=== PATIENT | female | born 1980 | race Caucasian/White ===

== ENCOUNTER 2020-06-08 11:17 | Emergency (ER) | payer BC, SELFPAY ==
[2020-06-08 11:26] VITALS: BP 227/125; PULSE 89; RESP 20; TEMP 36.4; O2SAT 99
[2020-06-08 11:57] VITALS: BP 200/114; PULSE 89; RESP 22; O2SAT 95
--- NOTE | 2020-06-08 12:16 | ED.GENADULT ---
HPI - General Adult General Chief complaint: Recheck/Abnormal Lab/Rx Stated complaint: htn at the dentist Time Seen by Provider: 06/08/20 12:01 Source: patient Mode of arrival: ambulatory Limitations: no limitations History of Present Illness HPI narrative: Patient is a 39-year-old female who presents to emergency department for evaluation of elevated blood pressure readings seen at dentist office today. Patient notes no complaints and had elevated reading in the past patient is followed by primary care. Patient takes medications for depression and anxiety only and has a history of tobacco abuse. . Review of Systems Review of Systems: All systems reviewed & are unremarkable except as noted in HPI and below PMFSH Past Medical History Medical History (Updated 06/08/20 @ 13:06 by Itz Webb PA-C) Obesity Social History Social History (Updated 06/08/20 @ 12:18 by Itz Webb PA-C) Smoking status: Current every day smoker Exam Narrative: Exam Narrative: GENERAL: Well-appearing, obese, and in no acute distress. HEAD: Normocephalic, atraumatic. EYES: PERRLA and EOMI. ENT: Nares clear, no rhinorrhea or epistaxis. Mucous membranes moist. Oropharynx without tonsillar hypertrophy exudate or other lesions. NECK: Supple. No adenopathy or masses. CHEST: Clear to auscultation. No respiratory distress. No wheezes rales or rhonchi HEART: Regular rate and rhythm. No murmur heard. Normal peripheral pulses. ABDOMEN: Soft, nontender, nondistended EXTREMITIES: Normal range of motion. No edema. SKIN: Warm, dry, no rash. NEURO: No focal deficits. Alert and oriented x3. Cranial nerves II through XII grossly intact PSYCH: Normal mood and affect. Course Course Emergency Course: Patient's blood pressure came down significantly with resting will follow with primary care did not require any interventions Vital Signs Vital signs: Vital Signs Temperature 97.5 F L 06/08/20 11:26 Pulse Rate 89 06/08/20 11:26 Respiratory Rate 20 06/08/20 11:26 Blood Pressure 227/125 H 06/08/20 11:26 Pulse Oximetry 99 06/08/20 11:26 Temperature 97.5 F L 06/08/20 11:26 Pulse Rate 63 06/08/20 12:35 Respiratory Rate 18 06/08/20 12:35 Blood Pressure 193/88 H 06/08/20 12:35 Pulse Oximetry 99 06/08/20 12:35 Medical Decision Making MDM Narrative Medical decision making narrative: Patient's blood pressure currently 167/79 asymptomatic advised to buy a blood pressure cuff created journal and follow with primary care and given reasons to return Vital Signs Vital Signs: Vital Signs Temperature 97.5 F L 06/08/20 11:26 Pulse Rate 89 06/08/20 11:26 Respiratory Rate 20 06/08/20 11:26 Blood Pressure 227/125 H 06/08/20 11:26 Pulse Oximetry 99 06/08/20 11:26 Temperature 97.5 F L 06/08/20 11:26 Pulse Rate 63 06/08/20 12:35 Respiratory Rate 18 06/08/20 12:35 Blood Pressure 193/88 H 06/08/20 12:35 Pulse Oximetry 99 06/08/20 12:35 Lab Data Result diagrams: 06/08/20 12:11 06/08/20 12:11 Labs: Lab Results 06/08/20 06/08/20 Range/Units 12:11 12:11 WBC 10.6 H (4.5-10.0) K/mm3 RBC 5.26 (4.2-5.4) M/mm3 Hgb 15.7 H (12.0-15.0) g/dL Hct 46.4 (37.0-47.0) % MCV 88.2 (80-100) fl MCH 29.8 (26-34) pg MCHC 33.8 (32-36) g/dl RDW 13.6 (11.5-14.5) % Plt Count 240 (150-375) k/mm3 MPV 10.1 (7.4-10.4) fl Immature Gran % (Auto) 0.4 (0-0.5) % Neut % (Auto) 66.4 (45.5-73.1) % Lymph % (Auto) 23.1 (18.3-44.2) % [place] % (Auto) 7.0 (2.6-8.5) % Eos % (Auto) 2.5 (0-4.4) % Baso % (Auto) 0.6 (0.2-1.2) % Lymph # (Auto) 2.45 (0.9-3.2) K/mm3 [place] # (Auto) 0.7 H (0.1-0.6) K/mm3 Eos # (Auto) 0.3 (0-0.3) K/mm3 Baso # (Auto) 0.1 (0.0-0.1) K/mm3 Abs Immat Gran (auto) 0.04 H (0.00-0.031) K/mm3 Absolute Neuts (auto) 7.1 H (1.3-6.7) K/mm3 Absolute Nucleated RBC 0.0 (0.0-0.012) K/mm3 Nucleat
[2020-06-08 12:24] LABS: Basophils Absolute Auto 0.1 K/mm3 (0.0-0.1); Basophils Percent Auto 0.6 % (0.2-1.2); Eosinophils Absolute Auto 0.3 K/mm3 (0-0.3); Eosinophils Percent Auto 2.5 % (0-4.4); Hematocrit 46.4 % (37.0-47.0); Hemoglobin 15.7 g/dL (12.0-15.0); Immature Granulocyte Absolute 0.04 K/mm3 (0.00-0.031); Immature Granulocyte Percent A 0.4 % (0-0.5); Lymphocytes Absolute Auto 2.45 K/mm3 (0.9-3.2); Lymphocytes Percent Auto 23.1 % (18.3-44.2); Mean Corpuscular HGB Conc 33.8 g/dl (32-36); Mean Corpuscular Hemoglobin 29.8 pg (26-34); Mean Corpuscular Volume 88.2 fl (80-100); Mean Platelet Volume 10.1 fl (7.4-10.4); Monocytes Absolute Auto 0.7 K/mm3 (0.1-0.6); Neutrophils Absolute Auto 7.1 K/mm3 (1.3-6.7); Neutrophils Percent Auto 66.4 % (45.5-73.1); Platelet Count Result 240 k/mm3 (150-375); Red Blood Count 5.26 M/mm3 (4.2-5.4); Red Cell Distribution Width 13.6 % (11.5-14.5); White Blood Count 10.6 K/mm3 (4.5-10.0)
[2020-06-08 12:35] VITALS: BP 193/88; PULSE 63; RESP 18; O2SAT 99
[2020-06-08 12:36] LABS: Anion Gap 8 mmol/L (8-16); Blood Urea Nitrogen 10 mg/dL (7-17); Carbon Dioxide 23 mmol/L (22-30); Chloride 105 mmol/L (98-107); Estimated CRCL calculation 135 ml/min; Estimated Glomerular Filt Rate > 60; Glucose 96 mg/dL (65-105); Potassium 4.1 mmol/L (3.4-5.0); Sodium 136 mmol/L (137-145)
[2020-06-08 13:28] VITALS: BP 161/83; PULSE 78; RESP 18; O2SAT 99
[2020-06-08 13:40] VITALS: BP 160/72; PULSE 85; RESP 20; O2SAT 99
== END 2020-06-08 13:42 | disposition home or self-care (01) ==
PROVIDERS: Emergency Medicine Emergency Medical Services; Emergency Provider Emergency Medicine; PCP Physician Assistant
DX: R03.0 Elevated blood-pressure reading, without diagnosis of hypertension (principal); E66.9 Obesity, unspecified; Z68.41 Body mass index [BMI] 40.0-44.9, adult; F17.200 Nicotine dependence, unspecified, uncomplicated
CPT/HCPCS: 36415; 80048; 85025; 99283

== ENCOUNTER 2020-07-11 07:52 | Emergency (ER) | payer BC, SELFPAY ==
[2020-07-11 08:06] VITALS: BP 225/130; PULSE 96; RESP 18; TEMP 36.4; O2SAT 99
--- NOTE | 2020-07-11 08:15 | ECG_ITS ---
Measurements Intervals [place] Rate: 83 P: 50 [place]: 154 QRS: 60 QRSD: 87 T: 64 QT: 354 QTc: 416 Interpretive Statements SINUS RHYTHM BASELINE WANDER- V1 NORMAL ECG Electronically Signed On 07-11-2020 8:28:40 CDT by Luis Carlos Durham D.O.
[2020-07-11 08:20] VITALS: BP 223/136; PULSE 85; RESP 17; O2SAT 100
[2020-07-11 08:34] LABS: Basophils Absolute Auto 0.1 K/mm3 (0.0-0.1); Basophils Percent Auto 0.6 % (0.2-1.2); Eosinophils Absolute Auto 0.2 K/mm3 (0-0.3); Eosinophils Percent Auto 2.6 % (0-4.4); Hematocrit 47.9 % (37.0-47.0); Hemoglobin 16.6 g/dL (12.0-15.0); Immature Granulocyte Absolute 0.03 K/mm3 (0.00-0.031); Immature Granulocyte Percent A 0.3 % (0-0.5); Lymphocytes Absolute Auto 2.01 K/mm3 (0.9-3.2); Lymphocytes Percent Auto 21.5 % (18.3-44.2); Mean Corpuscular HGB Conc 34.7 g/dl (32-36); Mean Corpuscular Hemoglobin 30.5 pg (26-34); Mean Corpuscular Volume 88.1 fl (80-100); Mean Platelet Volume 10.2 fl (7.4-10.4); Monocytes Absolute Auto 0.6 K/mm3 (0.1-0.6); Monocytes Percent Auto 6.7 % (2.6-8.5); Neutrophils Absolute Auto 6.4 K/mm3 (1.3-6.7); Neutrophils Percent Auto 68.3 % (45.5-73.1); Platelet Count Result 229 k/mm3 (150-375); Red Blood Count 5.44 M/mm3 (4.2-5.4); Red Cell Distribution Width 13.5 % (11.5-14.5); White Blood Count 9.4 K/mm3 (4.5-10.0)
[2020-07-11 08:48] VITALS: BP 197/126; BP 216/111; PULSE 76; PULSE 81
[2020-07-11 09:07] LABS: Anion Gap 9 mmol/L (8-16); Blood Urea Nitrogen 6 mg/dL (7-17); Carbon Dioxide 24 mmol/L (22-30); Chloride 105 mmol/L (98-107); Estimated CRCL calculation 137 ml/min; Estimated Glomerular Filt Rate > 60; Glucose 120 mg/dL (65-105); Potassium 4.3 mmol/L (3.4-5.0); Sodium 138 mmol/L (137-145)
[2020-07-11] MEDS: MECLIZINE HCL 25 MG TABLET PO (09:16)
--- NOTE | 2020-07-11 09:30 | PC.NURSE ---
Patient refusing valium at this time, states I have never taking this medication before.
[2020-07-11 09:59] VITALS: BP 192/118; PULSE 82; RESP 20; O2SAT 97
--- NOTE | 2020-07-11 11:14 | ED.DIZZY ---
HPI - Dizziness General Chief Complaint: Dizziness Stated Complaint: dizzy Time Seen by Provider: 07/11/20 08:38 History of Present Illness HPI Narrative: Patient is a 39-year-old female who presents ER with sudden onset dizziness. Woke with dizziness that feels like her eyes are going back and forth. Worse when she turns her head to the right and left. Mild nausea but no vomiting. She reports it is very anxiety provoking. No previous history of vertigo. Reports chronic fullness in her ears. No sinus congestion/sore throat/productive cough. She is without tinnitus. No focal weakness or numbness to an arm or leg. Patient reports chronically elevated blood pressures that she attributes to white coat syndrome however chart review shows patient has chronically elevated blood pressures. Related Data Home Medications Medication Instructions Recorded Confirmed citalopram [Celexa] 20 mg PO DAILY 07/11/20 famotidine 40 mg PO BID 07/11/20 Allergies Allergy/AdvReac Type Severity Reaction Status Date / Time erythromycin base Allergy Unknown Verified 07/11/20 08:19 Review of Systems Review of Systems: All systems reviewed & are unremarkable except as noted in HPI and below Constitutional: Constitutional: Denies chills, Denies fever(s) and Denies weakness Eyes: Eyes: Denies change in vision and Denies photophobia ENT: Reports dizziness, Denies nasal congestion and Denies sore throat Respiratory: Respiratory: Denies dyspnea and Denies wheezing Gastrointestinal: Gastrointestinal: Denies abdominal pain, Denies nausea and Denies vomiting PMFSH Past Medical History Medical History (Updated 07/11/20 @ 11:21 by Rober Gilliland MD) Hypertension Obesity Surgical History Surgical History (Updated 07/11/20 @ 11:17 by Rober Gilliland MD) No history of previous surgery Social History Social History (Updated 06/08/20 @ 12:18 by Itz Webb PA-C) Smoking status: Current every day smoker Exam Narrative: Exam Narrative: GENERAL: Well-appearing, well-nourished, and in no acute distress. HEAD: Normocephalic, atraumatic. EYES: PERRL and EOMI. ENT: Mucous membranes moist. TMs normal bilaterally. CHEST: Clear to auscultation. No respiratory distress. HEART: Regular rate and rhythm. Normal peripheral pulses. EXTREMITIES: Normal range of motion. No edema. NEURO: Alert and oriented x3. PSYCH: Normal mood and affect. Course Course Emergency Course: Dizziness resolved with oral meclizine. Discussed chronically elevated blood pressures recommend follow-up with primary care doctor. Discussed long-term ramifications of uncontrolled severe range blood pressures. Vital Signs Vital signs: Vital Signs Temperature 97.6 F 07/11/20 08:06 Pulse Rate 96 07/11/20 08:06 Respiratory Rate 18 07/11/20 08:06 Blood Pressure 225/130 H 07/11/20 08:06 Pulse Oximetry 99 07/11/20 08:06 Temperature 97.6 F 07/11/20 08:06 Pulse Rate 82 07/11/20 09:59 Respiratory Rate 20 07/11/20 09:59 Blood Pressure 192/118 H 07/11/20 09:59 Pulse Oximetry 97 07/11/20 09:59 MDM - Dizziness Lab Data Result diagrams: 07/11/20 08:22 07/11/20 08:22 Labs: Lab Results 07/11/20 07/11/20 Range/Units 08:22 08:22 WBC 9.4 (4.5-10.0) K/mm3 RBC 5.44 H (4.2-5.4) M/mm3 Hgb 16.6 H (12.0-15.0) g/dL Hct 47.9 H (37.0-47.0) % MCV 88.1 (80-100) fl MCH 30.5 (26-34) pg MCHC 34.7 (32-36) g/dl RDW 13.5 (11.5-14.5) % Plt Count 229 (150-375) k/mm3 MPV 10.2 (7.4-10.4) fl Immature Gran % (Auto) 0.3 (0-0.5) % Neut % (Auto) 68.3 (45.5-73.1) % Lymph % (Auto) 21.5 (18.3-44.2) % [place] % (Auto) 6.7 (2.6-8.5) % Eos % (Auto) 2.6 (0-4.4) % Baso % (Auto) 0.6 (0.2-1.2) % Lymph # (Auto) 2.01 (0.9-3.2) K/mm3 [place] # (Auto) 0.6 (0.1-0.6) K/mm3 Eos # (Auto) 0.2 (0-0.3) K/mm3 Baso # (Auto) 0.1 (0.0-0.1) K/mm3 Abs Immat Gran (au
[2020-07-11 11:41] VITALS: BP 181/98; PULSE 84; RESP 18; O2SAT 97
== END 2020-07-11 11:43 | disposition home or self-care (01) ==
PROVIDERS: Emergency Provider Emergency Medicine; PCP Physician Assistant
DX: H81.10 Benign paroxysmal vertigo, unspecified ear (principal); I10 Essential (primary) hypertension; E66.9 Obesity, unspecified; Z68.41 Body mass index [BMI] 40.0-44.9, adult; F17.210 Nicotine dependence, cigarettes, uncomplicated
CPT/HCPCS: 36415; 80048; 81025; 85025; 93005; 99284; A9270

== ENCOUNTER 2020-08-11 05:16 | Emergency (ER) | payer BC, SELFPAY ==
[2020-08-11] VITALS (10 sets, daily range): BP systolic 158–212; BP diastolic 79–121; PULSE 69–84; RESP 16–19; TEMP 36.8; O2SAT 93–97
--- NOTE | ~2020-08-11 | XR_ITS ---
EXAMINATION: XR chest 2V DATE: 08/11/2020 06:08 INDICATION: Hypertension TECHNIQUE: PA and lateral views of the chest are obtained. COMPARISON: None available FINDINGS: The lungs are free of acute opacities. There is no pleural effusion or pneumothorax. The ca rdiomediastinal silhouette is normal. The visualized bones and soft tissues are unremarkable. IMPRESSION: 1. No acute cardiopulmonary abnormality. Reviewed, dictated and finalized at location A. SCROLL SAW OPERATOR
--- NOTE | 2020-08-11 05:39 | ECG_ITS ---
Measurements Intervals [place] Rate: 73 P: 44 [place]: 156 QRS: 58 QRSD: 102 T: 74 QT: 377 QTc: 418 Interpretive Statements SINUS RHYTHM BORDERLINE T WAVE ABNORMALITY- HIGH LATERAL LEADS BORDERLINE ECG Electronically Signed On 08-11-2020 6:59:43 MENTAL HEALTH SPECIALIST by Luis Carlos Durham D.O.
--- NOTE | 2020-08-11 05:41 | ED.ANXIETY ---
HPI - Anxiety General Chief Complaint: Anxiety Stated Complaint: anxiety, htn Time Seen by Provider: 08/11/20 05:21 Source: patient Mode of arrival: ambulatory Limitations: no limitations History of Present Illness HPI narrative: Patient is a 39-year-old female complaining of an anxiety attack described as palpitations that woke her up from sleep this morning. Patient states that it lasted approximately for 30 minutes and now resolved. Patient denies any chest pain, shortness of breath, abdominal pain, nausea vomiting or diaphoresis. Denies fever. Patient states that she is feeling better and currently has no complaints. Related Data Home Medications Medication Instructions Recorded Confirmed citalopram [Celexa] 20 mg PO DAILY 07/11/20 famotidine 40 mg PO BID 07/11/20 Allergies Allergy/AdvReac Type Severity Reaction Status Date / Time erythromycin base Allergy Unknown Verified 07/11/20 08:19 Review of Systems Review of Systems: All systems reviewed & are unremarkable except as noted in HPI and below Constitutional: Constitutional: Denies body ache(s), Denies chills, Denies excessive sweating, Denies fatigue, Denies fever(s), Denies headache(s), Denies lethargy, Denies malaise, Denies weakness and Denies weight loss Eyes: Eyes: Denies blurry vision, Denies change in vision and Denies loss of vision ENT: Denies dizziness, Denies ear discharge, Denies headache(s), Denies lip swelling, Denies epistaxis, Denies nasal congestion, Denies neck pain, Denies throat swelling and Denies tongue swelling Cardiovascular: Cardiovascular: Denies chest pain, Denies chest pain at rest, Denies chest pain with activity, Denies diaphoresis, Denies rapid heart rate, Denies edema, Denies irregular heart rhythm, Denies lightheadedness, Denies dyspnea and Denies dyspnea on exertion Respiratory: Respiratory: Denies chest congestion, Denies cough, Denies hemoptysis, Denies dyspnea and Denies dyspnea on exertion Gastrointestinal: Gastrointestinal: Denies abdominal pain, Denies melena, Denies hematochezia, Denies diarrhea, Denies nausea, Denies vomiting and Denies hematemesis Musculoskeletal: Musculoskeletal: Denies abnormal gait, Denies deformity, Denies joint swelling, Denies limited range of motion, Denies neck pain and Denies numbness Neurologic: Denies Abnormal speech present, Denies abnormal gait, Denies confusion, Denies dizziness, Denies headache(s), Denies focal weakness, Denies loss of vision, Denies numbness, Denies Other visual disturbances, Denies Sensory deficit (Neuro) and Denies weakness Psychiatric: Psychiatric: Denies confusion, Denies depression, Denies auditory hallucinations, Denies homicidal ideation and Denies suicidal ideation Endocrine: Endocrine: Denies cold intolerance, Denies excessive sweating, Denies fatigue, Denies heat intolerance and Denies palpitations Hematologic/Lymphatic: Hematologic/Lymphatic: Denies easy bleeding and Denies easy bruising Allergic/Immunologic: Allergic/Immunologic: Denies lip swelling, Denies throat swelling and Denies tongue swelling PMFSH Past Medical History Medical History (Updated 08/11/20 @ 06:47 by Juve Engle MD) Hypertension Obesity Surgical History Surgical History (Updated 07/11/20 @ 11:17 by Rober Gilliland MD) No history of previous surgery Social History Social History (Updated 06/08/20 @ 12:18 by Itz Webb PA-C) Smoking status: Current every day smoker Exam Const: General: cooperative, healthy appearing, comfortable, no acute distress, well developed, alert and awake; No confusion Orientation/consciousness: oriented to person, oriented to place, oriented to time, patient oriented x3 and No confusion Limitations: no limitations HENMT: Head: normal to inspection, normocephalic and atraumatic Ears: hearing grossly normal bilaterally, TM normal on the right and TM normal on the left General nose exam: Normal external nose present, Normal na
[2020-08-11 06:01] LABS: Basophils Absolute Auto 0.1 K/mm3 (0.0-0.1); Basophils Percent Auto 0.5 % (0.2-1.2); Eosinophils Absolute Auto 0.3 K/mm3 (0-0.3); Hemoglobin 16.2 g/dL (12.0-15.0); Immature Granulocyte Absolute 0.03 K/mm3 (0.00-0.031); Immature Granulocyte Percent A 0.3 % (0-0.5); Lymphocytes Absolute Auto 2.27 K/mm3 (0.9-3.2); Mean Corpuscular HGB Conc 34.5 g/dl (32-36); Mean Corpuscular Hemoglobin 30.6 pg (26-34); Mean Corpuscular Volume 88.8 fl (80-100); Monocytes Absolute Auto 0.7 K/mm3 (0.1-0.6); Monocytes Percent Auto 7.1 % (2.6-8.5); Neutrophils Absolute Auto 6.2 K/mm3 (1.3-6.7); Neutrophils Percent Auto 65.1 % (45.5-73.1); Platelet Count Result 220 k/mm3 (150-375); Red Blood Count 5.29 M/mm3 (4.2-5.4); Red Cell Distribution Width 13.3 % (11.5-14.5); White Blood Count 9.5 K/mm3 (4.5-10.0)
[2020-08-11 06:15] LABS: Anion Gap 11 mmol/L (8-16); Blood Urea Nitrogen 9 mg/dL (7-17); Carbon Dioxide 22 mmol/L (22-30); Chloride 105 mmol/L (98-107); Estimated CRCL calculation 120 ml/min; Estimated Glomerular Filt Rate > 60; Glucose 117 mg/dL (65-105); Potassium 3.8 mmol/L (3.4-5.0); Sodium 138 mmol/L (137-145)
[2020-08-11 06:27] LABS: Troponin I < 0.012 ng/mL (0.000-0.034)
== END 2020-08-11 07:10 | disposition home or self-care (01) ==
PROVIDERS: Emergency Provider Emergency Medicine; PCP Physician Assistant
DX: R00.2 Palpitations (principal); F41.9 Anxiety disorder, unspecified; I10 Essential (primary) hypertension; E66.9 Obesity, unspecified; Z68.41 Body mass index [BMI] 40.0-44.9, adult; F17.200 Nicotine dependence, unspecified, uncomplicated; R94.31 Abnormal electrocardiogram [ECG] [EKG]
CPT/HCPCS: 36415; 71046; 80048; 81025; 84484; 85025; 93005; 99284; A9270

== ENCOUNTER 2021-02-21 14:41 | Inpatient (IN) | payer BC, SELFPAY ==
[2021-02-21] VITALS (20 sets, daily range): BP systolic 147–182; BP diastolic 77–102; PULSE 57–82; RESP 17–24; TEMP 36.6–36.7; O2SAT 95–100; BMI 39.4
--- NOTE | 2021-02-21 14:41 | PC.NURSE ---
Patient bypassed ED via EMS straight to lab technologist per EDP.
--- NOTE | 2021-02-21 15:36 | ECG_ITS ---
Measurements Intervals [place] Rate: 67 P: 38 [place]: 170 QRS: 70 QRSD: 97 T: 100 QT: 418 QTc: 442 Interpretive Statements SINUS RHYTHM INFERIOR ST ELEVATION MYOCARDIAL INFARCT- ACUTE BASELINE ARTIFACT- I, II, III, AVR, AVL, AVF, V1 ABNORMAL ECG Electronically Signed On 02-21-2021 18:58:50 CDT by Luis Carlos Durham D.O.
--- NOTE | 2021-02-21 15:41 | WPDCARDPROC ---
Cardiac Cath Procedure Note Date of procedure:: 02/21/21 Performing physician:: Remi Gomes MD Indication:: acute inferior wall myocardial infarction Brief clinical history:: this is a 40-year-old woman with a history of smoking and hypertension and significant obesity. She has been having episodes of intermittent chest discomfort for a number of days thinking that this was dyspepsia. Today she came open work and had more severe pain associated diaphoresis and then was brought here by ambulance with obvious acute inferior wall NJ being noted on ECG in the field. She is being brought directly to the center medical and lab director for emergency angiography in this setting Procedure Procedure performed:: emergency coronary angiography emergency PCI(HOMAR) to the right coronary artery left ventriculography Sedation/Medication given:: fentanyl 50 mg Versed 2 mg case start time 2:52 p.m. case end time 3:31 p.m. sedation provided by Yee Nunez RN, trained observer Access site:: right femoral artery Estimated blood loss:: 2230 CC Procedure note:: patient was brought to the cardiac catheterization lab direct from the ambulance in street clothes the ECG in the field was obviously diagnostic of acute inferior infarction. The patient was disrobed the femoral triangles were prepped and draped in the usual fashion. 1% lidocaine was infiltrated locally. Using the modified Seldinger technique the right femoral artery was punctured and after this a 5 Maltese FL4 catheter was used to engage and inject the left coronary artery in multiple projections. Following this I used a 6 Maltese JR4 guiding catheter to engage and inject the right coronary artery. PCI of the right coronary was then carried out as detailed below. The patient prior to PCI was anticoagulated with bolus and infusion of Angiomax. She also received 180 mg of Brilinta p.o.. She received aspirin in the ambulance. Following this PCI of the occluded RCA was carried out. The patient then underwent left ventriculography using a 5 Maltese angled pigtail catheter as well as measurement of left-sided hemodynamics. Patient was kept in the center medical and lab director for a short time because she developed accelerated idioventricular rhythm which was asymptomatic following revascularization. She received bolus of amiodarone 180 mg for this and 2 boluses of metoprolol 5 mg and then restored into sinus rhythm. She also received a spray of nitroglycerin at this time. the sheath was then sutured into position she was taken to the ICU for post NJ PCI recovery. Findings:: Hemodynamics: the central aortic pressure is 138 over 78 left ventricle 148/3 end-diastolic pressure 14. There is no gradient on pullback across the aortic valve. Left ventricle: The LV is of normal size the infero posterior segments are akinetic the remainder of the LV contracts well the Koul ejection fraction is 45%. The left coronary artery is nicely patent the left anterior descending is a large caliber artery extending down to around the apex LAD has diffuse mild luminal irregularities throughout but no significant lesions are identified. The circumflex is a moderate caliber artery giving rise to the marginal branch is the circumflex also has mild diffuse luminal irregularities but no significantly stenoses are seen. The right coronary artery is a large caliber vessel dominant posterior circulation it is 100% occluded in the 1st portion. Appearance of this is consistent with a fresh thrombotic occlusion. Intervention: The right coronary was engaged using the 6 Maltese JR4 guiding catheter. A 0.014 BMW coronary guidewire was used to traverse the occlusion and placed into the distal RCA. The lesion was pre-dilated using a 3 x 20 mm emerge PTCA balloon. The target lesion was then stented using a 3.5 x 30 mm Orsiro drug-eluting stent with an excellent anatomical result following the procedure there was no residual stenosis distal emboli
--- NOTE | 2021-02-21 15:52 | P.HP_ITS ---
H&P: HPI History of Present Illness Date/Time: 02/21/21 15:52 Chief Complaint: Chest pain Narrative: this is a 40-year-old woman who has been having episodes of chest discomfort off and on for several days. Today this afternoon she had more severe some symptoms that were associated with diaphoresis. An ambulance was called to her home on route her ECG was found to be obviously diagnostic of acute inferior wall infarction. Patient is being seen as she is being rolled from the ambulance into the cardiac catheterization lab for emergency angiography. She reports no knowledge of previous cardiac problems. She does have a family history of premature coronary in her father she smokes cigarettes as well. She is in moderate distress with chest pain of offers no other complaints at this time. Review of Systems Review of Systems: ROS unobtainable: Yes unobtainable due to medical condition [facility] Past Medical History Medical History (Updated 08/12/20 @ 00:00 by Lindsay Atkins) Hypertension Obesity Surgical History Surgical History (Updated 07/11/20 @ 11:17 by Rober Gilliland MD) No history of previous surgery Social History Social History (Updated 06/08/20 @ 12:18 by Itz Webb PA-C) Smoking status: Current every day smoker Meds Home Medications and Allergies Home Medications Medication Instructions Recorded Confirmed Type citalopram [Celexa] 20 mg PO DAILY 07/11/20 History famotidine 40 mg PO BID 07/11/20 History meclizine 25 mg PO TID PRN #20 tablet 07/11/20 Rx Allergies Allergy/AdvReac Type Severity Reaction Status Date / Time erythromycin base Allergy Unknown Verified 07/11/20 08:19 Exam Const: General: in distress and uncomfortable Other: Obese 40-year-old woman moderate distress with chest pain HENMT: Mouth: Yes moist mucous membranes Eyes: Sclera: sclerae normal Pupils: Equal, round and reactive pupils present Neck: Neck: supple and no JVD Resp: Effort & Inspection: normal respiratory effort Auscultation: clear to auscultation bilaterally Cardio: Rate: regular rate Rhythm: regular rhythm Other: PMI not palpable 4th heart sound is noted there is no murmur GI: GI Palp: Yes Soft to palpation Auscultation: normal bowel sounds Skin: General skin exam: normal color Neuro: Cognition (Neuro): normal cognition Other: anxious otherwise normal mental status Assessment and Plan Additional Plan 40-year-old white female smoker obese lady presenting with acute inferior wall myocardial infarction. Plans are being made now for emergency angiography and revascularization. Remi Gomes MD FACC
[2021-02-21 16:06] LABS: Hematocrit 42.5 % (37.0-47.0); Hemoglobin 14.3 g/dL (12.0-15.0); Mean Corpuscular HGB Conc 33.6 g/dl (32-36); Mean Corpuscular Hemoglobin 29.9 pg (26-34); Mean Corpuscular Volume 88.7 fl (80-100); Mean Platelet Volume 10.4 fl (7.4-10.4); Platelet Count Result 195 k/mm3 (150-375); Red Blood Count 4.79 M/mm3 (4.2-5.4); Red Cell Distribution Width 13.2 % (11.5-14.5)
[2021-02-21 16:15] LABS: Prothrombin Time 47.5 Seconds (11.1-14.7)
[2021-02-21 16:18] LABS: Anion Gap 6 mmol/L (8-16); Blood Urea Nitrogen 8 mg/dL (7-17); Calcium 8.6 mg/dL (8.4-10.2); Carbon Dioxide 22 mmol/L (22-30); Chloride 108 mmol/L (98-107); Cholesterol 206 mg/dL (0-200); Estimated Glomerular Filt Rate > 60; Glucose 123 mg/dL (65-105); HDL Direct 32 mg/dL; Potassium 3.3 mmol/L (3.4-5.0); Sodium 136 mmol/L (137-145); Triglycerides 276 mg/dL (<150)
[2021-02-21 16:29] LABS: LDL Cholesterol Direct 128 mg/dL
[2021-02-21 16:35] LABS: Troponin I 0.098 ng/mL (0.000-0.034)
[2021-02-21] MEDS: SODIUM CHLORIDE 0.9% IV 1,000 ML 125 ML IV CONT (17:05)
--- NOTE | 2021-02-21 17:17 | PC.NURSE ---
This patient, Prem Rao, was admitted to Intensive Care Unit-2. Patient/family oriented to hospital policies and general routines including ID bracelet, bed and alarms, visiting hours, pain management, procedures, bathroom and other care routines, personal items, smoking policy, room service/diet, and visiting hours. Information on how to activate the Rapid Response Team has been discussed. Patient/Family are encouraged to report perceived risks to care and to ask questions if they do not understand what they are told or what they should do.
--- NOTE | 2021-02-21 17:18 | PC.NURSE ---
Patient advised that she is very sensitive to many medications, but does not have specific allergies. She prefers to avoid all pain medications. She generally does not take any prescription or [id number] medications, as she does not like the way they make me feel.
[2021-02-21 18:17] LABS: INR 5.1
[2021-02-21 19:10] LABS: INR 1.4
[2021-02-21 19:12] LABS: Alanine Aminotransferase 13 U/L (4-35); Alkaline Phosphatase 66 U/L (38-126); Aspartate Amino Transferase 33 U/L (14-36); Bilirubin,Total 0.5 mg/dL (0.2-1.3)
[2021-02-21 19:18] LABS: Prothrombin Time 17.6 Seconds (11.1-14.7)
[2021-02-21] MEDS: lisinopriL 5 MG TABLET PO (19:57)
[2021-02-21] MEDS: METOPROLOL TARTRATE 25 MG TABLET PO (21:27)
[2021-02-21] MEDS: TICAGRELOR 90 MG TABLET PO (21:28)
[2021-02-22] VITALS (15 sets, daily range): BP systolic 117–163; BP diastolic 61–105; PULSE 48–64; RESP 16–21; TEMP 36.6–37; O2SAT 96–100
--- NOTE | 2021-02-22 | ECHO_ITS ---
Patient Info Name: Prem Rao Age: 40 years : 1980 Gender: Female Ht: 69 in Wt: 257 lbs BSA: 2.43 m2 HR: 53 bpm BP: 143 / 105 mmHg Heart Rhythm: Sinus Rhythm, Bradycardia Technical Quality: Good Exam Date: 02/22/2021 10:04 AM Exam Location: [facility] Patient Status: Inpatient Admit Date: 02/21/2021 Staff Ordering Physician: Rufino Morales MD Rail Bender: Alexander Rouse, RDCS, RT Attending Provider: Remi Gomes MD Exam Type: CA echo doppler color flow Study Info Indications I21.29 - ST elevation (STEMI) myocardial infarction involving other sites Complete two-dimensional, color flow and Doppler transthoracic echocardiogram is performed. Strain analysis performed. Summary 1. Complete two-dimensional, color flow and Doppler transthoracic echocardiogram is performed. 2. Left ventricular systolic function is normal, estimated at 60-65% with mild hypokinesis of the mid and basal inferior wall.. 3. There is mildly increased left ventricular wall thickness. 4. The left ventricular diastolic function is grade II diastolic dysfunction. 5. There is mild mitral valve regurgitation. 6. There is trace tricuspid valve regurgitation. 7. Unable to estimate PA systolic pressure due to poor spectral resolution of tricuspid regurgitant jet velocity. 8. Mildly dilated inferior vena cava with >50% collapse upon inspiration consistent with elevated right atrial pressure, 10 mmHg. Left Ventricle Left ventricular chamber dimension is normal. Left ventricular systolic function is normal, estimated at 60-65% with mild hypokinesis of the mid and basal inferior wall.. There is mildly increased left ventricular wall thickness. The left ventricular diastolic function is grade II diastolic dysfunction. Global longitudinal strain is mildly elevated at -17 %. Right Ventricle Right ventricular chamber dimension is normal. Right ventricular systolic function is normal. Left Atria Left atrial chamber dimension is mildly enlarged. Right Atria Right atrial chamber dimension is mildly enlarged. Aortic Valve The aortic valve is not well visualized. There is no aortic valve stenosis. There is no aortic valve regurgitation. Pulmonic Valve The pulmonic valve is not well visualized. Mitral Valve The mitral valve has normal leaflets. There is mild mitral valve regurgitation. Tricuspid Valve The tricuspid valve leaflets are normal. There is trace tricuspid valve regurgitation. Unable to estimate PA systolic pressure due to poor spectral resolution of tricuspid regurgitant jet velocity. Pericardium/Pleural The pericardium appears normal. There is no pericardial effusion. Inferior Vena Cava Mildly dilated inferior vena cava with >50% collapse upon inspiration consistent with elevated right atrial pressure, 10 mmHg. Aorta The aortic root size at the sinus of Valsalva is normal. Tricuspid Valve Name Value Normal Estimated PAP/RSVP RA Pressure 10 mmHg <=5 Report Signatures
[2021-02-22] MEDS: FAMOTIDINE 20 MG TABLET 40 MG PO ×3 (00:21→20:11)
--- NOTE | 2021-02-22 05:11 | ECG_ITS ---
Measurements Intervals [place] Rate: 48 P: 43 [place]: 161 QRS: 39 QRSD: 91 T: -1 QT: 477 QTc: 429 Interpretive Statements SINUS BRADYCARDIA INFERIOR INFARCT, PROBABLY RECENT ABNORMAL ECG Electronically Signed On 02-22-2021 8:49:58 CDT by Luis Carlos Durham D.O.
[2021-02-22] MEDS: ROSUVASTATIN 10 MG TABLET 20 MG PO (08:17)
[2021-02-22] MEDS: TICAGRELOR 90 MG TABLET PO ×2 (08:17→20:12)
[2021-02-22] MEDS: lisinopriL 5 MG TABLET PO (08:17)
[2021-02-22] MEDS: ASPIRIN 81 MG CHEWABLE TABLET PO (08:18)
[2021-02-22 08:23] LABS: Hematocrit 39.7 % (37.0-47.0); Hemoglobin 13.5 g/dL (12.0-15.0); Mean Corpuscular Volume 88.2 fl (80-100); Mean Platelet Volume 10.3 fl (7.4-10.4); Platelet Count Result 211 k/mm3 (150-375); Red Cell Distribution Width 13.4 % (11.5-14.5); White Blood Count 14.3 K/mm3 (4.5-10.0)
[2021-02-22 08:38] LABS: Alanine Aminotransferase 13 U/L (4-35); Albumin Level 3.5 g/dL (3.5-5.1); Alkaline Phosphatase 52 U/L (38-126); Anion Gap 4 mmol/L (8-16); Aspartate Amino Transferase 82 U/L (14-36); Bilirubin,Total 0.5 mg/dL (0.2-1.3); Blood Urea Nitrogen 6 mg/dL (7-17); Calcium 8.9 mg/dL (8.4-10.2); Carbon Dioxide 23 mmol/L (22-30); Chloride 111 mmol/L (98-107); Estimated CRCL calculation 128 ml/min; Estimated Glomerular Filt Rate > 60; Glucose 92 mg/dL (65-105); Sodium 138 mmol/L (137-145)
--- NOTE | 2021-02-22 09:14 | WPDCNINT ---
Assessment and Plan Assessment and plan (1) STEMI (ST elevation myocardial infarction): Code(s): I21.3 - ST elevation (STEMI) myocardial infarction of unspecified site Status: Acute Assessment and Plan: Acute inferior wall myocardial infarction resulting from abrupt thrombotic occlusion of large dominant proximal RCA s/p PCI and insertion of 3.5 x 30 mm drug-eluting stent Check echocardiogram Continue aspirin and Brilinta Crestor metoprolol and lisinopril (2) Tobacco abuse: Code(s): Z72.0 - Tobacco use Status: Acute Assessment and Plan: Patient was counseled to quit smoking as it is 1 of the main contributing factors to her early coronary artery disease (3) Hypertension: Code(s): I10 - Essential (primary) hypertension Status: Acute Assessment and Plan: Blood pressure and control range at this time Continue lisinopril and metoprolol Additional Plan DVT prophylaxis -SCDs in bed and up ad lobito Code Status - Full Code Patient's questions were answered. Transfer out of ICU today [facility] Consult Note Consult date: 02/22/21 Time Seen: 07:55 HPI: Prem Rao is a 40 year old female with past medical history of hypertension and smoking who presented yesterday with chief complaint of chest pain. She stated yesterday after lunch she felt like she had to burp and the feeling would not go way she went home from work and was diaphoretic. She could not describe severity to the pain. She states the pain radiated to her neck and was associated with numbness of her both arms and her face. She initially thought she was having an anxiety attack but as the symptoms did not improve she decided to seek help. She was also short of breath but had no palpitations. EMS was called and and route her EKG showed ST segment elevation FL. Patient was emergently taken to cardiac laborer/grade check she was found to be having Acute inferior wall myocardial infarction resulting from abrupt thrombotic occlusion of large dominant proximal RCA which was treated successfully using the 3.5 x 30 mm drug-eluting stent. Patient also add had episode of accelerated idioventricular rhythm in the laborer/grade check which was resolved with IV metoprolol and amiodarone. Postprocedure patient was admitted to ICU for further evaluation management. This morning patient feels better she states that she has occasional feeling where she cannot take deep breath otherwise she feels better and does not have any symptoms at this time. Patient denies fever, chest pain, shortness of breath, cough, nausea vomiting, abdominal pain,, diarrhea, headache or constipation. She does feel anxious about this heart attack and how it will affect her life going forward. She is worried that she will have to take medications for all her life. All other systems were reviewed and were negative Review of Systems Review of Systems: All systems reviewed & are unremarkable except as noted in HPI and below (HPI) [facility] Past Medical History Medical History (Updated 02/22/21 @ 09:15 by Rufino Morales MD) Hypertension Obesity Surgical History Surgical History (Updated 07/11/20 @ 11:17 by Rober Gilliland MD) No history of previous surgery Family History Family History Father Acute myocardial infarction Daughter Lung cancer Social History Social History Smoking packs per day: 1 Smoking cigarettes per day: 20.0 Years smoked: 25 Smoking pack-years: 25.00 Smoking status: Current every day smoker Tobacco type: cigarettes Alcohol intake: never Substance use: never Gender identity (if verbalized by the patient): Female Spiritual care concerns: No Meds Home Medications and Allergies Home Medications Medication Instructions Recorded Confirmed Type famotidine 40 mg PO BID 07/11/20 02/21/21 History Allergies Allergy/Ad
--- NOTE | 2021-02-22 09:49 | PCCPR ---
[facility] flyer was given to patient.
--- NOTE | 2021-02-22 14:02 | PM.PNCARD ---
Progress Note: A&P Assessment and Plan (1) STEMI (ST elevation myocardial infarction): Onset Date: ~02/2017 Code(s): I21.3 - ST elevation (STEMI) myocardial infarction of unspecified site Status: Acute Assessment and Plan: 40 year old woman who presented to the ED yesterday with chest pain. EKG showed ST elevations in the inferior leads. She was found to have a 100% RCA occlusion. She is s/p PCI to the RCA with good result per angiograpy. She is not experiencing chest pain, shortness of breath, palpitations. She did not experience any complications overnight. Several 3-4 beat runs of VT noted on telemetry last night. She is stable and OK to be downgraded to IMU status today. Continue ASA, statin, Brilinta, metoprolol as HR allows. (2) Coronary artery disease: Onset Date: ~02/2017 Code(s): I25.10 - Atherosclerotic heart disease of [place] coronary artery without angina pectoris Status: Acute Assessment and Plan: 100% RCA lesion treated with drug eluting stent. Diffuse left coronary artery plaquing noted. Continue ASA, statin. Lifestyle modifications discussed. (3) Bradycardia: Code(s): R00.1 - Bradycardia, unspecified Status: Acute Assessment and Plan: Patient in sinus bradycardia following PCI. She is asymptomatic with this bradycardia. Hold metoprolol for HR less than 60. (4) Hypertension: Code(s): I10 - Essential (primary) hypertension Status: Acute Assessment and Plan: Well controlled on current medication regimen. (5) Tobacco abuse: Code(s): Z72.0 - Tobacco use Status: Acute Assessment and Plan: Counseling performed. Subjective Date/time seen: Cardiology follow up for STEMI, s/p PCI Date of service 02/22/2021: Patient doing well following PCI yesterday. Restong comfortably in bed at the time of exam. She denies any complaints aside from a feeling of inability to take complete breaths, and notes this is making it difficult for her to sleep for long periods of time. She is curious about her medication regimen as well as lifestyle modifications for prevention of future cardiac events. Overall, patient doing well and without complications post PCI, progressing as expected. OK to downgrade to IMU status. Review of Systems Constitutional: Constitutional: Reports no additional constitutional complaints and Reports difficulty sleeping Eyes: Eyes: Denies blurry vision ENT: Reports Normal hearing present Cardiovascular: Cardiovascular: Denies chest pain, Denies lightheadedness and Denies palpitations Respiratory: Respiratory: Denies dyspnea Comments: Reports a feeling of being unable to take complete breaths Gastrointestinal: Gastrointestinal: Denies abdominal pain, Denies bloating and Denies nausea Genitourinary: Genitourinary: Denies urinary incontinence and Denies urinary urgency Musculoskeletal: Musculoskeletal: Reports back pain Neurologic: Denies headache(s) Endocrine: Endocrine: Denies palpitations Hematologic/Lymphatic: Hematologic/Lymphatic: Denies easy bleeding and Denies easy bruising Exam Narrative: Exam Narrative: Pleasant woman resting comfortably in bed. Appears stated age. Alert, oriented. Const: General: comfortable and no acute distress HENMT: Head: normal to inspection Mouth: Yes moist mucous membranes Eyes: General: appearance normal, both eyes and all related structures Sclera: sclerae normal EOM: EOMs intact bilaterally Neck: Neck: supple Resp: Effort & Inspection: normal respiratory effort Auscultation: clear to auscultation bilaterally Cardio: Rate: bradycardic Rhythm: regular rhythm GI: GI Palp: Yes Soft to palpation Auscultation: normal bowel sounds Skin: General skin exam: normal color Other: R groin sheath site free from bleeding, hematoma, swelling, tenderness. Neuro: Cognition (Neuro): normal cognition Speech: normal speech Extre
[2021-02-22] MEDS: METOPROLOL TARTRATE 12.5 MG TABLET PO (20:19)
[2021-02-23] VITALS (8 sets, daily range): BP systolic 128–146; BP diastolic 75–93; PULSE 48–63; RESP 15–19; TEMP 36.9–37.1; O2SAT 95–99
[2021-02-23] MEDS: FAMOTIDINE 20 MG TABLET 40 MG PO (08:08)
[2021-02-23] MEDS: ROSUVASTATIN 10 MG TABLET 20 MG PO (08:08)
[2021-02-23] MEDS: METOPROLOL TARTRATE 12.5 MG TABLET PO (08:08)
[2021-02-23] MEDS: lisinopriL 5 MG TABLET PO (08:09)
[2021-02-23] MEDS: TICAGRELOR 90 MG TABLET PO (08:09)
[2021-02-23] MEDS: ASPIRIN 81 MG CHEWABLE TABLET PO (08:10)
--- NOTE | 2021-02-23 11:43 | PM.DS ---
DS: Admitting Diagnosis Admitting Diagnosis Admitting Diagnosis: Acute inferior wall OR DS: Discharge Diagnosis Discharge Diagnosis (1) STEMI (ST elevation myocardial infarction): Onset Date: ~02/2017 Code(s): I21.3 - ST elevation (STEMI) myocardial infarction of unspecified site Status: Acute DS: Summary Hospital Course Reason for hospitalization: Acute ST-elevation OR Hospital Course: This is a 40-year-old woman who presented to the hospital on the day of admission with chest pain that began a short time ago at her home. She was brought in by EMS and ECG in the field was obviously diagnostic of acute inferior wall OR. She had no previous cardiovascular history she was a longstanding cigarette smoker. She was brought straight to the cardiac catheterization lab where she was found to have 100% acute occlusion of a large dominant right coronary artery. Her left coronary artery had mild scattered plaques in both the LAD in the circumflex but no anatomically significant disease. The inferior wall was akinetic her global ejection fraction was 45%. She underwent very rapid successful PCI of the right coronary artery using a 3.5 x 30 mm Dishableiro drug-eluting stent with an excellent anatomical result. Following revascularization she had asymptomatic accelerated idioventricular rhythm in the [facility] which was resolved with a bolus of amiodarone and 2 boluses of metoprolol. Following this she was admitted to the ICU she had no post OR complications. She is bradycardic at rest and her beta-yoly dosage was decreased otherwise she had no cardiovascular concerns following emergency revascularization appears to be a good candidate for discharge today. Her discharge medications are as detailed below which of course include dual anti-platelet therapy ZEE-inhibitor statin and low-dose beta-yoly. Follow up in the office will be scheduled for 1 month from now. Status at Discharge Functional status at discharge: independent ambulation Overall status at discharge: patient is back to baseline Time Spent with Patient Time attestation: Total time spent providing and/or coordinating discharge services: Time spent: Greater than 30 minutes Exam Const: General: comfortable and no acute distress Other: Obese white female pleasant cooperative in no distress of any sort HENMT: Mouth: Yes moist mucous membranes Eyes: Sclera: sclerae normal Pupils: Equal, round and reactive pupils present Neck: Neck: supple and no JVD Thyroid: thyroid normal Resp: Effort & Inspection: normal respiratory effort Auscultation: clear to auscultation bilaterally Cardio: Rate: regular rate Rhythm: regular rhythm Other: PMI of normal location and activity no murmur no gallop no rub GI: GI Palp: Yes Soft to palpation Auscultation: normal bowel sounds Skin: General skin exam: normal color Neuro: General: gait normal Other: Normal cognition Extrem: General: normal to inspection Other: Right groin puncture site looks fine no hematoma no bruit Discharge Plan Discharge Attending physician on discharge: Remi Gomes Consulting providers: Kizzy Lyman Discharging Clinician: Remi Gomes Patient Disposition: Home, Self-Care Activity: as tolerated Diet: heart healthy Discharge Instructions: Activity restrictions post PCI: No lifting, pushing, pulling more than 20 lb for 5 days. No strenuous exercise or activity (including sexual activity) until you are released to do so. May shower but no tub baths or swimming pool for 1 week. Avoid commercial hot tubs. They are too hot. DO NOT STOP YOUR MEDICATIONS! ONLY YOUR EDITOR DEPARTMENT CAN STOP THE FOLLOWING MEDICATIONS: Aspirin Brilinta Rosuvastatin Lisinopril Metoprolol succinate PLEASE CALL THE OFFICE IF THESE MEDICATIONS NEED TO BE STOPPED Keep your stent card in your wallet at all times Read food labels for high level of sodium, no added salt, avoid fried foods,
== END 2021-02-23 14:20 | disposition home or self-care (01) | DRG 174 ==
LOC: ANHED 14:43 → ANHICU 14:48
PROVIDERS: Internal Medicine; Internal Medicine Cardiovascular Disease; Admitting Provider Specialist; PCP Physician Assistant; Visit Provider Specialist
PROC: 4A023N7 Measurement of Cardiac Sampling and Pressure, Left Heart, Percutaneous Approach (ICD-10-PCS; CPT 93452; principal; 2021-02-21 14:45)
PROC: 027034Z Dilation of Coronary Artery, One Artery with Drug-eluting Intraluminal Device, Percutaneous Approach (ICD-10-PCS; 2021-02-21 14:45)
DX: I21.19 ST elevation (STEMI) myocardial infarction involving other coronary artery of inferior wall (principal); E66.9 Obesity, unspecified; Z68.39 Body mass index [BMI] 39.0-39.9, adult; I25.10 Atherosclerotic heart disease of native coronary artery without angina pectoris; R00.1 Bradycardia, unspecified; F17.210 Nicotine dependence, cigarettes, uncomplicated; I10 Essential (primary) hypertension; Z82.49 Family history of ischemic heart disease and other diseases of the circulatory system
CPT/HCPCS: 36415; 80048; 80053; 80061; 80076; 83735; 84484; 85027; 85610; 93005; 93306; 93458; A9270; C1725; C1769; C1874; C1887; C1894; C9606; J0282; J0461; J0583; J1644; J2250; J2405; J3010; J7030; J7040

== ENCOUNTER 2021-03-28 18:30 | Observation (INO) | payer BC, SELFPAY ==
[2021-03-28] VITALS (18 sets, daily range): BP systolic 148–159; BP diastolic 85–102; PULSE 65–94; RESP 14–33; TEMP 36.7; O2SAT 94–100
--- NOTE | ~2021-03-28 | XR_ITS ---
EXAMINATION: XR chest 2V DATE: 03/28/2021 22:07 INDICATION: Shortness of breath. TECHNIQUE: Frontal and lateral views of the chest were obtained. COMPARISON: Chest 2 views 08/11/2020 FINDINGS: The chest demonstrates clear lungs without pneumonia, pleural effusion, or pneumothorax. Th e heart size is normal. IMPRESSION: 1. No acute cardiopulmonary disease. Reviewed, dictated and finalized at location A.
--- NOTE | ~2021-03-28 | CT_ITS ---
EXAMINATION: CT brain wo con DATE: 03/28/2021 20:45 INDICATION: Dizziness. TECHNIQUE: Computed tomography (CT) of the head was performed without intravenous contrast. The mA wa s adjusted according to patient size. Iterative reconstruction technique was employed. The dose-lengt h product was 681.00 mGy-cm. COMPARISON: None FINDINGS: There is no intracranial hemorrhage, acute infarction, or abnormal intracranial mass lesion . The ventricles are normal in size. The orbits are normal. The paranasal sinuses are clear. The mast oid air cells are normal. IMPRESSION: 1. Normal brain. Reviewed, dictated and finalized at location A. IMPRESSION: 1. Normal brain.
--- NOTE | ~2021-03-28 | MR_ITS ---
EXAMINATION: MR brain IAC wo/w con DATE: 03/29/2021 17:33 INDICATION: Dizziness. TECHNIQUE: Magnetic resonance imaging (MRI) of the brain, brainstem, and internal auditory canals was performed without and with 20 mL MultiHance intravenous contrast. Sequences included sagittal and ax ial T1-weighted FSE, axial diffusion-weighted FS EPI, axial T2*-weighted GRE, axial T2-weighted FLAIR Propeller, axial T2-weighted Propeller, small btfit-av-kpxa coronal FIESTA, small lysqi-rc-ifil shade nal T1-weighted FSE, and small qrkpk-sp-poqk axial T1-weighted SPGR. Postcontrast sequences included axial T1-weighted FSE, small pvhtx-dw-rlvx coronal T1-weighted FSE, and small yxvdl-rh-siky axial T1- weighted SPGR. Apparent diffusion coefficient (ADC) maps were created. COMPARISON: Head CT 03/28/2021 FINDINGS: There is no intracranial hemorrhage, acute infarction, or abnormal intracranial mass lesion . The ventricles are normal in size. The internal auditory canals and inner and middle ears are rose l. The mastoid air cells are normal. There is mild mucosal thickening in the paranasal sinuses. The o rbits are normal. IMPRESSION: 1. Normal brain. Reviewed, dictated and finalized at location A. IMPRESSION: 1. Normal brain.
--- NOTE | 2021-03-28 18:33 | ECG_ITS ---
Measurements Intervals [place] Rate: 86 P: 61 NH: 147 QRS: 56 QRSD: 93 T: 32 QT: 353 QTc: 423 Interpretive Statements SINUS RHYTHM INFERIOR INFARCT, AGE INDETERMINATE BASELINE ARTIFACT- V3 ABNORMAL ECG Electronically Signed On 03-28-2021 19:50:48 CDT by Luis Carlos Durham D.O.
[2021-03-28 18:46] LABS: Basophils Absolute Auto 0.1 K/mm3 (0.0-0.1); Basophils Percent Auto 0.5 % (0.2-1.2); Eosinophils Absolute Auto 0.2 K/mm3 (0-0.3); Eosinophils Percent Auto 1.2 % (0-4.4); Hematocrit 46.2 % (37.0-47.0); Hemoglobin 15.4 g/dL (12.0-15.0); Immature Granulocyte Absolute 0.05 K/mm3 (0.00-0.031); Immature Granulocyte Percent A 0.4 % (0-0.5); Lymphocytes Absolute Auto 1.94 K/mm3 (0.9-3.2); Lymphocytes Percent Auto 14.8 % (18.3-44.2); Mean Corpuscular HGB Conc 33.3 g/dl (32-36); Mean Corpuscular Hemoglobin 29.8 pg (26-34); Mean Corpuscular Volume 89.5 fl (80-100); Mean Platelet Volume 10.3 fl (7.4-10.4); Monocytes Absolute Auto 0.8 K/mm3 (0.1-0.6); Monocytes Percent Auto 6.2 % (2.6-8.5); Neutrophils Absolute Auto 10.1 K/mm3 (1.3-6.7); Neutrophils Percent Auto 76.9 % (45.5-73.1); Platelet Count Result 223 k/mm3 (150-375); Red Blood Count 5.16 M/mm3 (4.2-5.4); Red Cell Distribution Width 13.4 % (11.5-14.5); White Blood Count 13.1 K/mm3 (4.5-10.0)
[2021-03-28 19:14] LABS: Anion Gap 10 mmol/L (8-16); Blood Urea Nitrogen 10 mg/dL (7-17); Calcium 9.8 mg/dL (8.4-10.2); Carbon Dioxide 21 mmol/L (22-30); Chloride 108 mmol/L (98-107); Estimated CRCL calculation 111 ml/min; Estimated Glomerular Filt Rate > 60; Glucose 132 mg/dL (65-105); Potassium 4.2 mmol/L (3.4-5.0); Sodium 139 mmol/L (137-145)
--- NOTE | 2021-03-28 20:22 | ED.GENADULT ---
HPI - General Adult General Chief complaint: Shortness of Breath/Dyspnea Stated complaint: sob Time Seen by Provider: 03/28/21 20:03 Source: patient History of Present Illness HPI narrative: Patient is a 40 y/o female complaining of severe dizziness starting approximately 4 hours ago. She describes her dizziness as a room spinning sensation. She states that sitting up make her dizziness worse. She also has some SOB. She has no chest pain. She has no focal weakness, numbness or speech difficulty. She has some difficulty with walking due to dizziness. Of note, she had recently [place] last month. Related Data Home Medications Medication Instructions Recorded Confirmed famotidine 40 mg PO BID 07/11/20 03/28/21 Allergies Allergy/AdvReac Type Severity Reaction Status Date / Time erythromycin base Allergy Unknown Verified 03/28/21 21:05 Review of Systems Constitutional: Constitutional: Denies chills, Denies fever(s), Denies headache(s) and Denies weakness Eyes: Eyes: Denies blurry vision ENT: Denies headache(s) and Denies neck pain Cardiovascular: Cardiovascular: Denies chest pain and Denies dyspnea Respiratory: Respiratory: Denies cough and Reports dyspnea Gastrointestinal: Gastrointestinal: Denies abdominal pain, Denies diarrhea, Denies nausea and Denies vomiting Genitourinary: Genitourinary: Denies hematuria and Denies dysuria Musculoskeletal: Musculoskeletal: Denies back pain and Denies neck pain Neurologic: Reports dizziness, Denies headache(s) and Denies weakness PMFSH Past Medical History Medical History Hypertension Obesity Surgical History Surgical History No history of previous surgery Family History Family History Father Acute myocardial infarction CAD (coronary artery disease) Daughter No problems noted. Mother Lung cancer Social History Social History Smoking packs per day: 1 Smoking cigarettes per day: 20.0 Years smoked: 25 Smoking pack-years: 25.00 Smoking status: Current every day smoker Additional smoking assessment comments: since her event smoking 0.5 pkg or less Alcohol intake: never Substance use: never Gender identity (if verbalized by the patient): Female Spiritual care concerns: No Exam Const: General: no acute distress and well developed Orientation/consciousness: oriented to person, oriented to place, oriented to time and patient oriented x3 HENMT: Head: normocephalic Ears: external ears normal General nose exam: Normal external nose present Eyes: General: appearance normal, both eyes and all related structures Conjunctivae: conjunctivae normal Neck: Neck: normal visual inspection and full ROM Chest: Chest palpation & inspection: normal inspection of the chest and no tenderness Resp: Effort & Inspection: normal respiratory effort Auscultation: clear to auscultation bilaterally Cardio: Rate: regular rate Rhythm: regular rhythm GI: GI Palp: No abdominal tenderness and Yes Soft to palpation Skin: General skin exam: normal color and turgor normal Neuro: General: oriented to person, oriented to place, oriented to time and patient oriented x3 Cranial nerves: Yes CN's II-XII intact bilaterally Cognition (Neuro): normal cognition Speech: normal speech Motor exam (neuro): 5/5 motor strength present throughout Sensory Exam: normal sensation Coordination: [id number]-kt-zioy test normal and khde-hr-tdgu test normal Extrem: General: normal to inspection, full ROM and no pedal edema Psych: Appearance: grossly normal Mental Status: mental status grossly normal Affect: normal affect Course Reevaluation(s) Reevaluation #1: Rechecked. Patient still feels dizzy and has trouble walking. Will admit for observation and further work up. Date:
[2021-03-28 21:00] LABS: D Dimer 0.27 ug/mL (<0.48)
[2021-03-28 21:02] LABS: NT Pro B Type Natriuretic Pept 98 pg/mL (5-100); Troponin I < 0.012 ng/mL (0.000-0.034)
--- NOTE | 2021-03-28 23:00 | PC.NURSE ---
patient upset that no one is telling me anything erp made aware and he states he will update patient
[2021-03-28] MEDS: MECLIZINE HCL 25 MG TABLET PO (23:34)
[2021-03-28 23:46] LABS: Troponin I < 0.012 ng/mL (0.000-0.034)
[2021-03-29] VITALS (11 sets, daily range): BP systolic 113–150; BP diastolic 54–79; PULSE 57–81; RESP 17–18; TEMP 36.2–36.6; O2SAT 96–98; BMI 37.0
--- NOTE | 2021-03-29 01:17 | ADMGEN ---
This patient, Prem Rao, was admitted to Medical Room 249-01. Patient/family oriented to hospital policies and general routines including ID bracelet, bed and alarms, visiting hours, pain management, procedures, bathroom and other care routines, personal items, smoking policy, room service/diet, and visiting hours. Information on how to activate the Rapid Response Team has been discussed. Patient/Family are encouraged to report perceived risks to care and to ask questions if they do not understand what they are told or what they should do.
--- NOTE | 2021-03-29 01:41 | PM.IMHP ---
H&P: HPI History of Present Illness Date/Time: 03/29/21 01:41 Chief Complaint: Vertigo Narrative: Patient is a 40 y/o female complaining of severe dizziness starting yesterday afternoon. She describes her dizziness as a room spinning sensation. She states that sitting up make her dizziness worse. She also has some SOB which has been an ongoing issue since her last admission. She attributes this to using Brilinta since her last admission. She has no chest pain. She has no focal weakness, numbness or speech difficulty. She has some difficulty with walking due to dizziness. She has gotten meclizine done in the ER with some improvement in her symptoms. Ale also reports history of previous dizziness in the past. Of note, she had recently STEMI last month. And had cardiac catheterization which showed he LV is of normal size the infero posterior segments are akinetic the remainder of the LV contracts well with ejection fraction is 45%. The left coronary artery is nicely patent the left anterior descending is a large caliber artery extending down to around the apex LAD has diffuse mild luminal irregularities throughout but no significant lesions are identified. The circumflex is a moderate caliber artery giving rise to the marginal branch is the circumflex also has mild diffuse luminal irregularities but no significantly stenoses are seen. The right coronary artery is a large caliber vessel dominant posterior circulation it is 100% occluded in the 1st portion. Appearance of this is consistent with a fresh thrombotic occlusion. Intervention: The right coronary was engaged using the 6 [place] JR4 guiding catheter. A 0.014 BMW coronary guidewire was used to traverse the occlusion and placed into the distal RCA. The lesion was pre-dilated using a 3 x 20 mm emerge PTCA balloon. The target lesion was then stented using a 3.5 x 30 mm Spectral Imageiro drug-eluting stent with an excellent anatomical result following the procedure there was no residual stenosis distal embolization or dissection. Conclusion:: 1. Acute inferior wall myocardial infarction resulting from abrupt thrombotic occlusion of large dominant proximal RCA in this unfortunately young woman. This was treated successfully using the 3.5 x 30 mm drug-eluting stent described above with an excellent angiographic result. 2. Diffuse modest non flow-limiting plaquing scattered throughout the left coronary artery. 3. Infero posterior akinesia ejection fraction about 45% 4. accelerated idioventricular rhythm resolved in the earthmoving labourer with IV metoprolol and 1 bolus of amiodarone. See reports he followed up with chlorine cell tender a week later but she is not able to see Dr. Gomes anymore because of insurance issues and she is going to see another chlorine cell tender in April Review of Systems Review of Systems: Narrative: - CONSTITUTIONAL: Denies weight loss, fever and chills. - HEENT: Denies changes in vision and hearing - RESPIRATORY: Denies SOB and cough. - CV: Denies palpitations and CP. - GI: Denies abdominal pain, nausea, vomiting and diarrhea. - : Denies dysuria and urinary frequency. - MSK: Denies myalgia and joint pain. - SKIN: Denies rash and pruritus. - NEUROLOGICAL: Denies headache and syncope. Reports dizziness - PSYCHIATRIC: Denies recent changes in mood. Denies anxiety and depression. All systems reviewed & are unremarkable except as noted in HPI and below Neurologic: Reports weakness Endocrine: Endocrine: Reports fatigue PMFSH Past Medical History Medical History Hypertension Obesity Surgical History Surgical History No history of previous surgery Family History Family History Father Acute myocardial infarction CAD (coronary artery disease) Daughter No problems noted. Mother Lung canc
[2021-03-29] MEDS: SODIUM CHLORIDE 0.9% IV 1,000 ML 75 ML IV CONT (01:57)
[2021-03-29 02:50] LABS: Troponin I < 0.012 ng/mL (0.000-0.034)
[2021-03-29] MEDS: ASPIRIN 81 MG CHEWABLE TABLET PO (08:23)
[2021-03-29] MEDS: lisinopriL 5 MG TABLET PO (08:23)
[2021-03-29] MEDS: TICAGRELOR 90 MG TABLET PO (08:23)
[2021-03-29] MEDS: FAMOTIDINE 20 MG TABLET 40 MG PO (08:23)
[2021-03-29] MEDS: MECLIZINE HCL 25 MG TABLET PO (08:37)
--- NOTE | 2021-03-29 10:18 | PM.IMPN ---
Progress Note: A&P Assessment and Plan (1) Dizziness: Code(s): R42 - Dizziness and giddiness Status: Acute Assessment and Plan: Patient presents with dizziness which began prior to arrival when she stood up from the couch. She has had similar symptoms before about 1 year ago and it is not as severe as that time. Vitals showed she was afebrile, non tachycardic, elevated blood pressure 159/96, normal oxygenation respiratory rate on room air. Labs showed leukocytosis at 13,100, with slight elevation neutrophils at 76%. Normal D-dimer. You can normal BMP. Negative troponins x3. BNP was normal. CT head showed normal brain. Chest x-ray showed no acute cardiopulmonary disease. The patient was admitted for dizziness under observation status. She was started on meclizine which has improved her symptoms slightly. IV fluid hydration Due to continued symptoms and recent STEMI will evaluate with an MRI/MRA Telemetry shows normal sinus rhythm with a heart rate of 61 beats per minute, no arrhythmia or abnormality noted. Could be due to a viral cause Continue with scheduled meclizine Continue monitoring. (2) Hypertension: Qualifiers: Hypertension type: unspecified Qualified Code(s): I10 - Essential (primary) hypertension Code(s): I10 - Essential (primary) hypertension Status: Acute Assessment and Plan: Blood pressure improved this morning, 121/65. Continue monitoring. Make adjustments if needed. (3) Coronary artery disease: Onset Date: ~02/2017 Code(s): I25.10 - Atherosclerotic heart disease of [place] coronary artery without angina pectoris Status: Acute Assessment and Plan: Recent ST-elevation [place] status post cardiac catheterization with stent placement to the RCA on aspirin and Brilinta and lisinopril. Intolerance to beta-yoly with fatigue. To needs follow-up with her residency program coordinator as an outpatient as scheduled in April 2021 after discharge for further evaluation after her STEMI (4) Shortness of breath: Code(s): R06.02 - Shortness of breath Status: Acute Assessment and Plan: Shortness of breath could be related to Brilinta. She has a follow-up with her residency program coordinator for further evaluation and monitoring after her NSTEMI Time Spent With Patient Time with patient: 25 - 35 minutes Subjective Date/time seen: 03/29/21 10:18 Interval history: Date of service 03/29/2021: The patient is still having some dizziness this morning. She has worsening symptoms with turning her head, mostly to the left. She denies any headache, vision changes, chest pain, shortness of breath, palpitations, nausea, vomiting, leg swelling, calf pain, numbness, tingling, or any other symptoms at this time. Review of Systems Review of Systems: All systems reviewed & are unremarkable except as noted in HPI and below Exam Narrative: Exam Narrative: General: 40-year-old woman laying flat in bed on her right side, turned over in bed and still if appeared to be comfortable. In no acute distress. Skin: No jaundice or cyanosis. Good skin turgor. Neck: Full range of motion. Supple. Respiratory: Lungs are clear to auscultation bilaterally. No bony chest wall tenderness. Cardiovascular: The heart has a regular rate and rhythm without murmur. Lower extremities: No lower extremity edema. Distal pulses are easily palpated. No calf tenderness to palpation. Gastrointestinal: The abdomen is soft, nontender and nondistended with active bowel sounds. Psychiatric: Lucid and oriented. Memory intact. Neurologic: Nystagmus to the left noted. EOMI. Normal strength to bilateral upper and lower extremities. No sensation changes. No pronator drift. Normal finger to nose. No focal deficits.
--- NOTE | 2021-03-29 16:44 | PM.DS ---
DS: Admitting Diagnosis Admitting Diagnosis Admitting Diagnosis: Dizziness DS: Discharge Diagnosis Discharge Diagnosis (1) Dizziness: Code(s): R42 - Dizziness and giddiness Status: Acute Assessment and Plan: Patient is a 40 year old woman with a history of recent STEMI 02/2021 with PCI placement on ASA/Brilinta, who presented to the ER with dizziness which began prior to arrival when she stood up from the couch at home. She has had similar symptoms before about 1 year ago and it is not as severe as that time since she is not having any nausea or vomiting. Vitals showed she was afebrile, non tachycardic, elevated blood pressure 159/96, normal oxygenation respiratory rate on room air. Labs showed leukocytosis at 13,100, with slight elevation neutrophils at 76%. Normal D-dimer and BMP. Negative troponins x3. BNP was normal. CT head showed normal brain. Chest x-ray showed no acute cardiopulmonary disease. The patient was admitted for dizziness under observation status. She was started on IV fluid hydration and meclizine which has improved her symptoms by the afternoon. MR brain IAC wo/w contrast showed normal brain imaging. She was feeling much better and wanted to be discharged home to visit her son who she has not seen in 6 months. She feels comfortable with discharge on Meclizine for dizziness. Told to follow up with PCP in 1 week. Return to ER warnings given. The patient understands and agrees with the plan. All questions answered. (2) Hypertension: Qualifiers: Hypertension type: unspecified Qualified Code(s): I10 - Essential (primary) hypertension Code(s): I10 - Essential (primary) hypertension Status: Acute Assessment and Plan: Blood pressure stable. (3) Coronary artery disease: Onset Date: ~02/2017 Code(s): I25.10 - Atherosclerotic heart disease of [place] coronary artery without angina pectoris Status: Acute Assessment and Plan: Recent ST-elevation [place] status post cardiac catheterization with stent placement to the RCA on aspirin and Brilinta and lisinopril. Intolerance to beta-yoly with fatigue. To needs follow-up with her assistant professor of geography as an outpatient as scheduled in April 2021 after discharge for further evaluation after her STEMI (4) Shortness of breath: Code(s): R06.02 - Shortness of breath Status: Acute Assessment and Plan: Shortness of breath could be related to Brilinta. She has a follow-up with her assistant professor of geography for further evaluation and monitoring after her NSTEMI DS: Summary Hospital Course Hospital Course: See above Status at Discharge Cognitive/behavioral status at discharge: Stable, improved. Time Spent with Patient Time attestation: Total time spent providing and/or coordinating discharge services: 42 Time spent: Greater than 30 minutes Exam Narrative: Exam Narrative: General: 40-year-old woman laying flat in bed on her right side, turned over in bed and still if appeared to be comfortable. In no acute distress. Skin: No jaundice or cyanosis. Good skin turgor. Neck: Full range of motion. Supple. Respiratory: Lungs are clear to auscultation bilaterally. No bony chest wall tenderness. Cardiovascular: The heart has a regular rate and rhythm without murmur. Lower extremities: No lower extremity edema. Distal pulses are easily palpated. No calf tenderness to palpation. Gastrointestinal: The abdomen is soft, nontender and nondistended with active bowel sounds. Psychiatric: Lucid and oriented. Memory intact. Neurologic: Nystagmus to the left noted. EOMI. Normal strength to bilateral upper and lower extremities. No sensation changes. No pronator drift. Normal finger to nose. No focal deficits. Speech is clear. No
== END 2021-03-29 18:37 | disposition home or self-care (01) ==
LOC: ANHED 20:03 → ANH2MED 03-29 00:36
PROVIDERS: Emergency Medicine; Admitting Provider Internal Medicine; Emergency Provider Emergency Medicine; PCP Physician Assistant; Visit Provider Emergency Medicine
DX: R42 Dizziness and giddiness (principal); I25.10 Atherosclerotic heart disease of native coronary artery without angina pectoris; I25.2 Old myocardial infarction; I10 Essential (primary) hypertension; E66.9 Obesity, unspecified; R06.02 Shortness of breath; Z95.5 Presence of coronary angioplasty implant and graft; Z79.01 Long term (current) use of anticoagulants
CPT/HCPCS: 36415; 70450; 70553; 71046; 80048; 81025; 83880; 84484; 85025; 85380; 93005; 96360; 96361; 99285; A9270; A9577; G0378; J7030

== ENCOUNTER 2021-04-14 16:30 | Outpatient (RCR) | payer BC, OTHER, SELFPAY ==
[2021-03-15 08:43] VITALS: PULSE 64
--- NOTE | 2021-03-30 14:12 | PCCPR ---
Addendum entered by Sonya Nguyen RN 04/06/21 09:52: Spoke with Prem today states she feels terrible. She has not left the house in 2 weeks since she was in the ED. She has an apt tomorrow with Angelique Durant in the [employer] office. Her son is here to visit and will be taking her to her apt. Asked she give us a call and update us on her ability to return or changes in her treatment. Original Note: Prem was admitted to the hospital on Sunday with a diagnosis of Vertigo. Prem called today to inquire about returning, informed her that she will need a release. Prem said that she needs to make a follow up appointment with her primary md.
--- NOTE | 2021-04-13 11:51 | PCCPR ---
Received release for Prem to return to cardiac rehab. Will return 04/13.
--- NOTE | 2021-04-18 17:08 | PCCPR ---
Dc due to insurance change Prem had a change of insurance due to loss of her job while off with her [facility]. We did not accept her insurance at this time.
== END 2021-04-18 17:06 | disposition home or self-care (01) ==
LOC: ANHCPREHAB 16:30
PROVIDERS: PCP Physician Assistant; Visit Provider Specialist
DX: Z95.5 Presence of coronary angioplasty implant and graft (principal); I25.2 Old myocardial infarction
CPT/HCPCS: 93798

== ENCOUNTER 2021-11-05 06:39 | Emergency (ER) | payer BC, OTHER, SELFPAY ==
--- NOTE | ~2021-11-05 | XR_ITS ---
EXAMINATION: XR chest 1V portable DATE: 11/05/2021 07:03 INDICATION: Generalized chest pain. Shortness of breath. TECHNIQUE: A single frontal view of the chest was obtained. COMPARISON: Chest 2 views 03/28/2021 FINDINGS: The chest demonstrates clear lungs without pneumonia, pleural effusion, or pneumothorax. Th e heart size is normal. IMPRESSION: 1. No acute cardiopulmonary disease. Reviewed, dictated and finalized at location A. SPECIALIST
[2021-11-05 06:39] VITALS: BP 151/91; PULSE 71; RESP 18; TEMP 36.6; O2SAT 96
--- NOTE | 2021-11-05 06:47 | ECG_ITS ---
Measurements Intervals [place] Rate: 66 P: 40 ID: 143 QRS: 55 QRSD: 94 T: 55 QT: 405 QTc: 426 Interpretive Statements SINUS RHYTHM MINIMAL Q WAVES- INFERIOR LEADS BASELINE ARTIFACT- I, II, III, AVR, AVL, AVF BORDERLINE ECG Electronically Signed On 11-05-2021 7:58:26 RESEARCH ATTORNEY by Luis Carlos Durham D.O.
[2021-11-05 06:48] VITALS: PULSE 68
[2021-11-05 07:00] LABS: Basophils Absolute Auto 0.1 K/mm3 (0.0-0.1); Basophils Percent Auto 0.8 % (0.2-1.2); Eosinophils Absolute Auto 0.2 K/mm3 (0-0.3); Eosinophils Percent Auto 2.2 % (0-4.4); Hematocrit 44.1 % (37.0-47.0); Hemoglobin 15.2 g/dL (12.0-15.0); Immature Granulocyte Absolute 0.05 K/mm3 (0.00-0.031); Immature Granulocyte Percent A 0.5 % (0-0.5); Lymphocytes Percent Auto 21.7 % (18.3-44.2); Mean Corpuscular HGB Conc 34.5 g/dl (32-36); Mean Corpuscular Hemoglobin 31.2 pg (26-34); Mean Corpuscular Volume 90.6 fl (80-100); Mean Platelet Volume 9.9 fl (7.4-10.4); Monocytes Absolute Auto 0.8 K/mm3 (0.1-0.6); Monocytes Percent Auto 7.5 % (2.6-8.5); Neutrophils Absolute Auto 6.8 K/mm3 (1.3-6.7); Neutrophils Percent Auto 67.3 % (45.5-73.1); Platelet Count Result 230 k/mm3 (150-375); Red Blood Count 4.87 M/mm3 (4.2-5.4); Red Cell Distribution Width 13.4 % (11.5-14.5); White Blood Count 10.1 K/mm3 (4.5-10.0)
[2021-11-05 07:11] LABS: INR 0.9; Prothrombin Time 11.9 Seconds (11.1-14.7)
[2021-11-05 07:23] LABS: Troponin I < 0.012 ng/mL (0.000-0.034)
[2021-11-05 07:25] LABS: Alanine Aminotransferase 12 U/L (4-35); Albumin Level 4.1 g/dL (3.5-5.1); Alkaline Phosphatase 52 U/L (38-126); Anion Gap 6 mmol/L (8-16); Aspartate Amino Transferase 22 U/L (14-36); Bilirubin,Total 0.9 mg/dL (0.2-1.3); Blood Urea Nitrogen 11 mg/dL (7-17); Carbon Dioxide 20 mmol/L (22-30); Chloride 110 mmol/L (98-107); Estimated CRCL calculation 131 ml/min; Estimated Glomerular Filt Rate > 60; Glucose 101 mg/dL (65-110); Lipase 114 U/L (23-300); Potassium 4.4 mmol/L (3.4-5.0); Sodium 136 mmol/L (137-145)
--- NOTE | 2021-11-05 07:56 | ED.CHESTPAIN ---
HPI - Chest Pain General Chief Complaint: Chest Pain Stated Complaint: CP Time Seen by Provider: 11/05/21 07:05 Source: patient Mode of arrival: EMS Limitations: no limitations History of Present Illness HPI narrative: This is a 41 year old female smoker who presents for evaluation of chest pain. Patient states she woke up this morning around 530 am with burning pain in her chest that she describes as I feel like my lungs are burning . This pain is located mid throat and chest. She also woke up with left arm, neck and teeth discomfort that is similar to when she had an [place] 7 months ago. She also reports associated diaphoresis and shortness of breath. She denies nausea or vomiting. She was diagnosed with covid 2 weeks ago, and she reports having a cough for few days. She denies leg swelling, calf pain or history of PE/DVT. Her pain has been constant. Related Data Home Medications Medication Instructions Recorded Confirmed famotidine 20 mg PO BID PRN 07/11/20 03/29/21 clopidogrel [Plavix] 75 mg PO 04/13/21 Allergies Allergy/AdvReac Type Severity Reaction Status Date / Time erythromycin base Allergy Unknown Verified 11/05/21 06:48 Review of Systems Review of Systems: All systems reviewed & are unremarkable except as noted in HPI and below PMFSH Past Medical History Medical History Hypertension Obesity STEMI (ST elevation myocardial infarction) (~02/2017) Surgical History Surgical History (Updated 11/05/21 @ 07:58 by Kailey Sinclair MD) H/O cardiac catheterization History of coronary artery stent placement Family History Family History Father Acute myocardial infarction CAD (coronary artery disease) Daughter No problems noted. Mother Lung cancer Social History Social History Smoking packs per day: 1 Smoking cigarettes per day: 20.0 Years smoked: 25 Smoking pack-years: 25.00 Smoking status: Current every day smoker Additional smoking assessment comments: since her event smoking 0.5 pkg or less Alcohol intake: never Substance use: never Gender identity (if verbalized by the patient): Female Spiritual care concerns: No Exam Const: General: no acute distress and alert Orientation/consciousness: patient oriented x3 Eyes: EOM: EOMs intact bilaterally Neck: Neck: normal visual inspection Resp: Effort & Inspection: normal respiratory effort and no retractions Auscultation: clear to auscultation bilaterally Cardio: Rate: regular rate Rhythm: regular rhythm Heart sounds: no murmurs GI: GI Palp: Yes Soft to palpation, No Tenderness to palpation present (GI) and No Guarding due to palpation present (GI) Auscultation: normal bowel sounds Neuro: General: patient oriented x3, moves all extremities and CN's II-XI intact bilaterally Psych: Mental Status: mental status grossly normal Affect: normal affect Course Reevaluation(s) Reevaluation #1: I spoke with patient that she will need be obs due to cardiac history and her symptoms. I explained that I need to order more test and I am unable to rule out IA at this time. She states she can not stay and she is asking for her IV to be taken out. I discussed with her that she will be leaving Against Medical Advice . I discussed risk of leaving and benefits of staying. She states she understands. Date: 11/05/21 Time: 07:50 Vital Signs Vital signs: Vital Signs Temperature 97.9 F 11/05/21 06:39 Pulse Rate 71 11/05/21 06:39 Respiratory Rate 18 11/05/21 06:39 Blood Pressure 151/91 H 11/05/21 06:39 Pulse Oximetry 96 11/05/21 06:39 Temperature 97.9 F 11/05/21 06:39 Pulse Rate 68 11/05/21 06:48 Respiratory Rate 18 11/05/21 06:39 Blood Pressure 151/91 H 11/05/21 06:39 Pulse Oximetry 96 11/05/21 06:39 MDM - Chest Pain
[2021-11-05 08:05] LABS: D Dimer 2.59 ug/mL (<0.48)
== END 2021-11-05 07:55 | disposition left against medical advice (07) ==
PROVIDERS: Emergency Medicine; Emergency Provider General Practice; PCP Physician Assistant
DX: R07.9 Chest pain, unspecified (principal); I10 Essential (primary) hypertension; I25.2 Old myocardial infarction; E66.9 Obesity, unspecified; Z68.41 Body mass index [BMI] 40.0-44.9, adult; Z95.5 Presence of coronary angioplasty implant and graft; F17.210 Nicotine dependence, cigarettes, uncomplicated; R94.31 Abnormal electrocardiogram [ECG] [EKG]
CPT/HCPCS: 36415; 71045; 80053; 83690; 84484; 85025; 85380; 85610; 85730; 93005; 99284

== ENCOUNTER 2021-11-28 11:07 | Emergency (ER) | payer BC, OTHER, SELFPAY ==
[2021-11-28] VITALS (12 sets, daily range): BP systolic 146–185; BP diastolic 81–95; PULSE 63–88; RESP 14–22; TEMP 36.7; O2SAT 96–100
--- NOTE | ~2021-11-28 | XR_ITS ---
EXAMINATION: XR chest 1V portable EXAM DATE: 11/28/2021 12:32 INDICATION: Chest pain. TECHNIQUE: Portable AP frontal chest x-ray was obtained. Comparison is made to prior examination from 11/05/2021. FINDINGS: The lungs are clear. There are no pleural effusions. The cardiomediastinal silhouette is within normal limits. There is no pneumothorax suspected. The bones and soft tissues are unremarkab le. IMPRESSION: No acute cardiopulmonary findings. Reviewed, dictated and finalized at location A. STERED NURSE AMBULATORY
--- NOTE | 2021-11-28 11:51 | ED.GENADULT ---
HPI - General Adult General Chief complaint: Unspecified Stated complaint: chest burning Time Seen by Provider: 11/28/21 11:44 Source: RN notes reviewed History of Present Illness HPI narrative: Patient presents emergency department from home for chest pain. Patient states she did have intermittent chest pain for the past 1 week the pain is located across the bilateral anterior chest and is described as burning with radiation to the shoulders states the pain occurs with increased exertion and then improves with rest she has mild shortness of breath with states she has a history of an [place] approximately 9 months ago and is followed by Dr. Gomes she denies any fevers or chills abdominal pain nausea vomiting she denies any chest pain currently at rest Related Data Home Medications Medication Instructions Recorded Confirmed famotidine 20 mg PO BID PRN 07/11/20 03/29/21 clopidogrel [Plavix] 75 mg PO 04/13/21 Allergies Allergy/AdvReac Type Severity Reaction Status Date / Time erythromycin base Allergy Unknown Verified 11/05/21 06:48 Review of Systems Review of Systems: Gen.: Denies fevers or chills ENT: Denies congestion Respiratory: Denies shortness of breath or cough CV: See HPI GI: Denies abdominal pain nausea, emesis or diarrhea Musculoskeletal: Denies back pain or muscle pain Neuro: Denies numbness, tingling, weakness or focal weakness Skin: Denies rash Except as documented, all other systems reviewed and negative [facility] Past Medical History Medical History Hypertension Obesity STEMI (ST elevation myocardial infarction) (~02/2017) Surgical History Surgical History (Updated 11/05/21 @ 07:58 by Kailey Sinclair MD) H/O cardiac catheterization History of coronary artery stent placement Family History Family History Father Acute myocardial infarction CAD (coronary artery disease) Daughter No problems noted. Mother Lung cancer Social History Social History Smoking packs per day: 1 Smoking cigarettes per day: 20.0 Years smoked: 25 Smoking pack-years: 25.00 Smoking status: Current every day smoker Additional smoking assessment comments: since her event smoking 0.5 pkg or less Alcohol intake: never Substance use: never Gender identity (if verbalized by the patient): Female Spiritual care concerns: No Exam Narrative: APPEARANCE: No acute distress, nontoxic, resting in bed EYES: EOMI HEENT: Normocephalic, atraumatic, OMM RESPIRATORY: No respiratory distress Clear to auscultation bilaterally with no rhonchi wheezing or rales. CARDIOVASCULAR: Regular rate and rhythm without murmurs rubs or gallops. ABDOMINAL: Soft, nontender, nondistended, no rebound or guarding MUSCULOSKELETAl: Moves all extremities. No clubbing, cyanosis or edema. NEURO: Awake and alert. Following commands, speech normal, no focal deficits SKIN:: Warm, dry. No rashes lesions or abrasions PSYCHIATRIC: Normal affect/mood, Course Course Emergency Course: Patient states she had COVID-19 a little over 1 month ago Discussed with MONTY Granda for Dr. Gomes presentation work-up agrees with admission at this time Discussed with patient and family results of workup and diagnosis. Discussed need for admission. Patient and family understand and agree to current treatment plan Vital Signs Vital signs: Vital Signs Temperature 98.1 F 11/28/21 11:34 Pulse Rate 84 11/28/21 11:34 Respiratory Rate 16 11/28/21 11:34 Blood Pressure 185/81 H 11/28/21 11:34 Pulse Oximetry 98 11/28/21 11:34 Temperature 98.1 F 11/28/21 11:34 Pulse Rate 63 11/28/21 13:01 Respiratory Rate 17 11/28/21 13:01 Blood Pressure 159/95 H 11/28/21 13:01 Pulse Oximetry 98 11/28/21 13:01 Medical Decision Making Vital Signs Vital Signs: Vital Signs
--- NOTE | 2021-11-28 12:07 | ECG_ITS ---
Measurements Intervals [place] Rate: 68 P: 148 SD: 136 QRS: 133 QRSD: 100 T: 149 QT: 368 QTc: 393 Interpretive Statements SINUS RHYTHM POSSIBLE LEFT ATRIAL ENLARGEMENT LEFT POSTERIOR FASCICULAR BLOCK CONSIDER INFERIOR INFARCT, AGE INDETERMINATE ST-T WAVE ABNORMALITY IN HIGH LATERAL LEADS- CONSIDER ISCHEMIA BASELINE ARTIFACT- I, III, AVR, AVL, AVF, V5 ABNORMAL ECG Electronically Signed On 11-28-2021 14:09:50 PRE KINDERGARTEN TEACHER by Luis Carlos Durham D.O.
[2021-11-28] MEDS: ASPIRIN 81 MG CHEWABLE TABLET 324 MG PO (12:17)
[2021-11-28 12:19] LABS: Basophils Absolute Auto 0.1 K/mm3 (0.0-0.1); Basophils Percent Auto 0.7 % (0.2-1.2); Eosinophils Absolute Auto 0.2 K/mm3 (0-0.3); Eosinophils Percent Auto 1.8 % (0-4.4); Hematocrit 45.1 % (37.0-47.0); Hemoglobin 15.3 g/dL (12.0-15.0); Immature Granulocyte Absolute 0.03 K/mm3 (0.00-0.031); Immature Granulocyte Percent A 0.3 % (0-0.5); Lymphocytes Percent Auto 20.4 % (18.3-44.2); Mean Corpuscular HGB Conc 33.9 g/dl (32-36); Mean Corpuscular Hemoglobin 31.4 pg (26-34); Mean Corpuscular Volume 92.6 fl (80-100); Mean Platelet Volume 10.2 fl (7.4-10.4); Monocytes Absolute Auto 0.6 K/mm3 (0.1-0.6); Monocytes Percent Auto 6.5 % (2.6-8.5); Neutrophils Absolute Auto 6.2 K/mm3 (1.3-6.7); Neutrophils Percent Auto 70.3 % (45.5-73.1); Platelet Count Result 208 k/mm3 (150-375); Red Blood Count 4.87 M/mm3 (4.2-5.4); Red Cell Distribution Width 13.5 % (11.5-14.5); White Blood Count 8.8 K/mm3 (4.5-10.0)
[2021-11-28 12:28] LABS: INR 0.9; Prothrombin Time 12.2 Seconds (11.1-14.7)
[2021-11-28 12:29] LABS: Partial Thromboplastin Time 26.6 SECONDS (22.3-36.8)
[2021-11-28 12:32] LABS: Alanine Aminotransferase 10 U/L (4-35); Alkaline Phosphatase 58 U/L (38-126); Anion Gap 6 mmol/L (8-16); Aspartate Amino Transferase 19 U/L (14-36); Bilirubin,Total 0.4 mg/dL (0.2-1.3); Blood Urea Nitrogen 7 mg/dL (7-17); Calcium 9.2 mg/dL (8.4-10.2); Carbon Dioxide 23 mmol/L (22-30); Chloride 108 mmol/L (98-107); Estimated CRCL calculation 110 ml/min; Estimated Glomerular Filt Rate > 60; Glucose 124 mg/dL (65-110); Lipase 84 U/L (23-300); Potassium 3.9 mmol/L (3.4-5.0); Sodium 137 mmol/L (137-145)
[2021-11-28 12:44] LABS: Troponin I < 0.012 ng/mL (0.000-0.034)
[2021-11-28 15:41] LABS: Troponin I < 0.012 ng/mL (0.000-0.034)
--- NOTE | 2021-11-28 18:03 | PC.NURSE ---
patient requested publicity writer to come to room. she is tearful and does not want to be admitted today. Requesting to speak with physician. Dr. Matthews aware
--- NOTE | 2021-11-28 18:20 | PC.NURSE ---
patient left AMA. paperwork signed and risks discussed. no questions or concerns at that time
== END 2021-11-28 18:20 | disposition left against medical advice (07) ==
LOC: ANHED 13:49 → ANHIMU 18:09
PROVIDERS: Emergency Provider Emergency Medicine; PCP Physician Assistant
DX: R07.9 Chest pain, unspecified (principal); I10 Essential (primary) hypertension; I25.2 Old myocardial infarction; Z86.16 Personal history of COVID-19; E66.9 Obesity, unspecified; Z68.36 Body mass index [BMI] 36.0-36.9, adult; Z95.5 Presence of coronary angioplasty implant and graft; F17.210 Nicotine dependence, cigarettes, uncomplicated; Z79.82 Long term (current) use of aspirin; I44.5 Left posterior fascicular block; R94.31 Abnormal electrocardiogram [ECG] [EKG]
CPT/HCPCS: 36415; 71045; 80053; 83690; 84484; 85025; 85610; 85730; 93005; 99284; A9270

== ENCOUNTER 2021-12-09 09:33 | Inpatient (IN) | payer BC, OTHER, SELFPAY ==
[2021-12-09] VITALS (17 sets, daily range): BP systolic 120–191; BP diastolic 63–109; PULSE 62–89; RESP 14–18; TEMP 36.1–36.4; O2SAT 95–100; BMI 38.0
--- NOTE | ~2021-12-09 | XR_ITS ---
XR chest 2V DATE: 12/09/2021 10:07 INDICATION: Chest burning. History of microinfarction, hypertension and smoking. TECHNIQUE: PA and lateral views COMPARISON: November 28, 2021 portable AP chest FINDINGS: Normal heart size. No hilar or mediastinal enlargement. No pulmonary infiltrate or consolid ation, pleural effusion or pulmonary vascular congestion or pneumothorax. IMPRESSION: No active cardiopulmonary disease Reviewed, dictated and finalized at location A. [employer]
--- NOTE | 2021-12-09 09:40 | ECG_ITS ---
Measurements Intervals [place] Rate: 70 P: 60 OR: 148 QRS: 79 QRSD: 95 T: 83 QT: 400 QTc: 432 Interpretive Statements SINUS RHYTHM CANNOT RULE OUT INFERIOR INFARCTION, AGE UNDETERMINED NONSPECIFIC LATERAL T-WAVE ABNORMALITY ABNORMAL ECG Electronically Signed On 12-09-2021 10:39:43 DRYWALL HANGER by Sidney Mathews M.D.
--- NOTE | 2021-12-09 09:52 | ED.CHESTPAIN ---
HPI - Chest Pain General Chief Complaint: Chest Pain <LUCI Carpenter Last Filed: 12/09/21 12:55> Stated Complaint: Chest pain <LUCI Carpenter Last Filed: 12/09/21 12:55> Time Seen by Provider: 12/09/21 09:45 <LUCI Carpenter Last Filed: 12/09/21 12:55> Source: patient <LUCI Carpenter Last Filed: 12/09/21 12:55> Mode of arrival: ambulatory <LUCI Carpenter Last Filed: 12/09/21 12:55> Limitations: no limitations <LUCI Carpenter Last Filed: 12/09/21 12:55> History of Present Illness HPI narrative: This is a 41-year-old female that presents to the emergency department for chest pain ongoing for the last couple of months. Reports she had COVID in October and has not felt right since. Reports she gets a burning pain in her lungs. The pain in her chest is worse with eating. It is also worse with exertion and relieved with rest. She has history of NH with stent placement last year. Dr. Gomes is her lime mixer tender. Denies fever, cough, shortness of breath, or lower extremity edema. <LUCI Carpenter Last Filed: 12/09/21 12:55> Related Data Home Medications: Home Medications Medication Instructions Recorded Confirmed famotidine 20 mg PO BID PRN 07/11/20 12/09/21 clopidogrel [Plavix] 75 mg PO DAILY 04/13/21 12/09/21 atorvastatin 20 mg PO DAILY 12/09/21 12/09/21 <LUCI Carpenter Last Filed: 12/09/21 12:55> Allergies/Adverse Reactions: Allergies Allergy/AdvReac Type Severity Reaction Status Date / Time erythromycin base Allergy Unknown Verified 12/09/21 09:51 <LUCI Carpenter Last Filed: 12/09/21 12:55> Review of Systems Review of Systems: CONSTITUTIONAL: Denies fever CARDIOVASCULAR: Reports chest pain. Denies edema. RESPIRATORY: Denies cough or dyspnea. <Ana Malloy PA-C - Last Filed: 12/09/21 12:55> All systems reviewed & are unremarkable except as noted in HPI and below <Ana Malloy PA-C - Last Filed: 12/09/21 12:55> PMFSH Past Medical History Medical History: Medical History (Updated 12/09/21 @ 13:50 by Alycia Valencia PA-C) Coronary artery disease (~02/2017) Gastroesophageal reflux disease Hypertension Obesity Polycystic ovarian syndrome STEMI (ST elevation myocardial infarction) (02/2021) Tobacco abuse <Ana Malloy PA-C - Last Filed: 12/09/21 12:55> Surgical History Surgical History: Surgical History (Updated 12/09/21 @ 13:50 by Alycia Valencia PA-C) History of cardiac catheterization (02/21/21) History of coronary artery stent placement (02/21/21) Drug-eluting stent to the right coronary artery per Dr. Gomes. <Ana Malloy PA-C - Last Filed: 12/09/21 12:55> Family History Family History: Family History Father Acute myocardial infarction CAD (coronary artery disease) Daughter No problems noted. Mother Lung cancer <Ana Malloy PA-C - Last Filed: 12/09/21 12:55> Social History Social History: Social History (Updated 12/09/21 @ 13:52 by Alycia Valencia PA-C) Social History: Surrogate decision maker: Vonnie Laird, sister. Code status: Full code. Smoking packs per day: 1 Smoking cigarettes per day: 20.0 Years smoked: 25 Smoking pack-years: 25.00 Smoking status: Current every day smoker Additional smoking assessment comments: Since NH in 2020 she is now smoking half a pack a day or less. Alcohol intake: never Substance use: never <Ana Malloy PA-C - Last Filed: 12/09/21 12:55> Exam Narrative: GENERAL: Well-appearing, well-nourished, and in no acute distress. HEAD: Normocephalic, atraumatic. EYES: EOMI. ENT: Mucous membranes moist. Oropharynx without tonsillar hypertrophy exudate or other lesions. NECK: No JVD CHEST: Clear to auscultation. No respiratory distress. No wheezes rales or rhonchi HEART: R
[2021-12-09 10:11] LABS: Alanine Aminotransferase 11 U/L (4-35); Albumin Level 4.3 g/dL (3.5-5.1); Alkaline Phosphatase 146 U/L (38-126); Anion Gap 11 mmol/L (8-16); Aspartate Amino Transferase 44 U/L (14-36); Bilirubin,Total 0.8 mg/dL (0.2-1.3); Blood Urea Nitrogen 8 mg/dL (7-17); Carbon Dioxide 19 mmol/L (22-30); Chloride 108 mmol/L (98-107); Estimated CRCL calculation 126 ml/min; Estimated Glomerular Filt Rate > 60; Glucose 95 mg/dL (65-110); Lipase 62 U/L (23-300); Potassium 4.2 mmol/L (3.4-5.0); Sodium 138 mmol/L (137-145)
[2021-12-09 10:13] LABS: Prothrombin Time 12.5 Seconds (11.1-14.7)
[2021-12-09 10:14] LABS: Partial Thromboplastin Time 26.4 SECONDS (22.3-36.8)
[2021-12-09 10:16] LABS: Basophils Absolute Auto 0.1 K/mm3 (0.0-0.1); Basophils Percent Auto 0.6 % (0.2-1.2); D Dimer 0.36 ug/mL (<0.48); Eosinophils Absolute Auto 0.2 K/mm3 (0-0.3); Eosinophils Percent Auto 2.3 % (0-4.4); Hematocrit 44.2 % (37.0-47.0); Hemoglobin 15.3 g/dL (12.0-15.0); Immature Granulocyte Absolute 0.03 K/mm3 (0.00-0.031); Immature Granulocyte Percent A 0.3 % (0-0.5); Lymphocytes Absolute Auto 1.81 K/mm3 (0.9-3.2); Lymphocytes Percent Auto 20.4 % (18.3-44.2); Mean Corpuscular HGB Conc 34.6 g/dl (32-36); Mean Corpuscular Hemoglobin 31.1 pg (26-34); Mean Corpuscular Volume 89.8 fl (80-100); Monocytes Absolute Auto 0.6 K/mm3 (0.1-0.6); Monocytes Percent Auto 6.4 % (2.6-8.5); Neutrophils Absolute Auto 6.2 K/mm3 (1.3-6.7); Platelet Count Result 226 k/mm3 (150-375); Red Blood Count 4.92 M/mm3 (4.2-5.4); Red Cell Distribution Width 13.2 % (11.5-14.5); White Blood Count 8.9 K/mm3 (4.5-10.0)
[2021-12-09] MEDS: ASPIRIN 81 MG CHEWABLE TABLET 324 MG PO (10:21)
[2021-12-09 10:22] LABS: Troponin I 0.043 ng/mL (0.000-0.034)
--- NOTE | 2021-12-09 10:23 | PC.NURSE ---
Patient states taking 81mg aspirin prior to arrival to ER.
--- NOTE | 2021-12-09 12:39 | ADMGEN ---
This patient, Prem Rao, was admitted to IMU Room 212-01 at 1235. Patient/family oriented to hospital policies and general routines including ID bracelet, bed and alarms, visiting hours, pain management, procedures, bathroom and other care routines, personal items, smoking policy, room service/diet, and visiting hours. Information on how to activate the Rapid Response Team has been discussed. Patient/Family are encouraged to report perceived risks to care and to ask questions if they do not understand what they are told or what they should do.
[2021-12-09 13:24] LABS: Troponin I 0.189 ng/mL (0.000-0.034)
--- NOTE | 2021-12-09 14:15 | PM.IMHP ---
H&P: HPI History of Present Illness Date/Time: 12/09/21 14:15 Chief Complaint: Chest pain. Narrative: This is a 41-year-old female smoker with hypertension, obesity, and coronary artery disease and history of acute inferior wall OK in February 2021 status post drug-eluting stent to the right coronary artery who presented to the emergency department from home for evaluation of chest pain. She had COVID in October and she has just not felt herself since that time. Over the past couple of weeks she has had self-limiting, intermittent central chest discomfort that she describes almost as burning in nature. She sees no obvious pattern as to when it occurs and she has noticed it while eating and when up walking. It seems to improve with rest. She was seen emergency department on 11/28/2021 with similar complaints at which time she left against medical advice; she recently got a new job and is fearful that she will lose the job if she misses work. Unfortunately she has continued to have pain and she came back today for evaluation. EKG did not demonstrate any acute changes though her troponin is elevated from those labs done earlier in the week and she is being admitted in this setting. She has not had any recurrence in her symptoms since admission. She denies fever, chills, sweats, cough, orthopnea, PND, lower extremity edema, pleuritic pain, nausea, vomiting, sweats, syncope, near syncope. Review of Systems Review of Systems: Twelve systems were reviewed and are negative except for as per HPI. [facility] Past Medical History Medical History Coronary artery disease (~02/2017) Gastroesophageal reflux disease Hypertension Obesity Polycystic ovarian syndrome STEMI (ST elevation myocardial infarction) (02/2021) Tobacco abuse Surgical History Surgical History History of cardiac catheterization (02/21/21) History of coronary artery stent placement (02/21/21) Drug-eluting stent to the right coronary artery per Dr. Gomes. Family History Family History Father Acute myocardial infarction CAD (coronary artery disease) Daughter No problems noted. Mother Lung cancer Social History Social History Social History: Surrogate decision maker: Vonnie Laird, sister. Code status: Full code. Smoking packs per day: 1 Smoking cigarettes per day: 20.0 Years smoked: 25 Smoking pack-years: 25.00 Smoking status: Current every day smoker Additional smoking assessment comments: Since OK in 2020 she is now smoking half a pack a day or less. Alcohol intake: never Substance use: never Meds Home Medications and Allergies Home Medications Medication Instructions Recorded Confirmed Type famotidine 20 mg PO BID PRN 07/11/20 12/09/21 History aspirin [Children's Aspirin] 81 mg PO DAILY@0800 #30 tablet 02/23/21 12/09/21 Rx lisinopril 5 mg PO DAILY #30 tablet 02/23/21 12/09/21 Rx nitroglycerin [Nitrostat] 0.4 mg SUBLINGUAL Q5MIN PRN #30 02/23/21 12/09/21 Rx tablet meclizine 25 mg PO QID PRN #30 tablet 03/29/21 12/09/21 Rx clopidogrel [Plavix] 75 mg PO DAILY 04/13/21 12/09/21 History atorvastatin 20 mg PO DAILY 12/09/21 12/09/21 History Allergies Allergy/AdvReac Type Severity Reaction Status Date / Time erythromycin base Allergy Unknown Verified 12/09/21 09:51 Vital Signs Vital Signs - 24 hr 12/09/21 09:48 12/09/21 09:55 12/09/21 09:57 Temperature 97.5 F L Pulse Rate 70 75 72 Respiratory Rate 14 15 Blood Pressure 191/109 H Pulse Oximetry 99 99 99 12/09/21 10:11 12/09/21 10:15 12/09/21 10:34 Temperature Pulse Rate 73 78 71 Respiratory Rate 16 18 17 Blood Pressure Pulse Oximetry 97 99 97 12/09/21 10:45 12/09/21 11:05 12/09/21 13:11 Temperature Pulse Rate 75 69 69
--- NOTE | 2021-12-09 15:15 | PM.CNCAR ---
Assessment and Plan Additional Plan 41-year-old white female with coronary artery disease who about 10 months ago sustained an inferior infarction that was treated successfully with emergency PCI using a drug-eluting stent to the proximal RCA. This is a large caliber vessel unlikely to have restenoses this soon on the other hand she has not been taking her statin and she has continued to smoke cigarettes increasing her risk for a for more unfavorable prognosis. The patient at the moment feels well. She does report that the symptoms do not feel similar to the pain she had during her infarction last year on the other hand she does have a troponin rise at this time and a follow-up angiogram in my opinion he is to be recommended. Most unfortunately she has just been given a lunch tray and therefore it is not prudent to do this procedure at this moment. My recommendation has to be that she kept in the hospital and placed on the schedule for an angiogram on Sunday. She is not happy about this and she may not agree to stay in the hospital from what she is telling me at this time. Remi Gomes MD [facility] History of Present Illness History of Present Illness Consult date/time: 12/09/21 15:15 Consult reason: chest pain Reason For Visit: Chest pain/elevated troponin Narrative: This is a 41-year-old woman I am seeing at the request of the hospitalist because of chest pain. She has a unfortunate history of premature coronary artery disease and I know her from care here in the hospital in the past as well as office follow-up appointments. The patient was found to have coronary disease which she presented here in February of 2021 with chest pain and ECG evidence of obvious acute inferior current of injury. She was brought emergently to the cardiac catheterization lab and found to have a proximal acute thrombotic occlusion of the large dominant right coronary artery which was treated successfully using a 3.5 mm Orsiro drug-eluting stent with a good anatomical result and rapid baptism of ANDREWS 3 flow in the vessel. She had some mild plaquing in the LAD and circumflex but no significant left coronary disease. The patient recovered from this relatively uneventfully but it took her a number of months before she felt well after this event. Most unfortunately following this event she has chosen to continue to smoke cigarettes as well as to not take her statin because she is fearful of the medication. She is compliant with her aspirin and clopidogrel. She was seen in my office couple of months ago and was doing relatively well at that time. She did contract coronavirus in October of this year couple of months ago and was in significant pain and had respiratory symptoms. She still feels like she has not totally recovered from that. She is now describing for the last week to 2 weeks of a burning central chest pain that occurs off and on sometimes it occurs in a postprandial fashion sometimes it occurs with exertion. She was in the emergency room 5 or 6 days ago with these symptoms was advised to be hospitalized and signed out against medical advice. She came back to the emergency room today. Her electrocardiogram looks normal. Her troponin levels which were normal 5 or 6 days ago now have a mild rise out of normal range the 2nd sample is 0.1. When I came in the room to see her she was sleeping in bed in the right lateral decubitus position. Upon awakening she does not have any current symptoms. Unfortunately about 30-60 minutes before I came in the room to see her she was just finishing the lunch tray. The patient is very stressed about the current situation see states she does not want to stay in the hospital because she is fearful of losing her job in the financial hardships that will accompany a long hospitalization. Review of Systems Constitutional: Constitutional: Reports no additional constitutional complaints Eyes: Eyes: Reports no additional eye complaints ENT:
[2021-12-09 16:36] LABS: Troponin I 0.231 ng/mL (0.000-0.034)
--- NOTE | 2021-12-09 18:03 | PC.NURSE ---
Called Dr. Cardoso re: patient's troponin level. He said to call Alycia around [phone], no answer, left voice mail.
[2021-12-09] MEDS: lisinopriL 5 MG TABLET PO (22:41)
[2021-12-10] VITALS (15 sets, daily range): BP systolic 117–185; BP diastolic 67–105; PULSE 58–89; RESP 16–17; TEMP 36.1–37.1; O2SAT 96–99
[2021-12-10 04:42] LABS: Hemoglobin 14.6 g/dL (12.0-15.0); Mean Corpuscular Hemoglobin 31.5 pg (26-34); Mean Corpuscular Volume 92.9 fl (80-100); Mean Platelet Volume 10.1 fl (7.4-10.4); Platelet Count Result 220 k/mm3 (150-375); Red Blood Count 4.63 M/mm3 (4.2-5.4); Red Cell Distribution Width 13.3 % (11.5-14.5); White Blood Count 8.9 K/mm3 (4.5-10.0)
[2021-12-10 04:55] LABS: Alanine Aminotransferase 10 U/L (4-35); Albumin Level 3.8 g/dL (3.5-5.1); Alkaline Phosphatase 54 U/L (38-126); Anion Gap 5 mmol/L (8-16); Aspartate Amino Transferase 20 U/L (14-36); Bilirubin,Total 0.4 mg/dL (0.2-1.3); Blood Urea Nitrogen 10 mg/dL (7-17); Calcium 8.4 mg/dL (8.4-10.2); Carbon Dioxide 23 mmol/L (22-30); Chloride 110 mmol/L (98-107); Estimated CRCL calculation 112 ml/min; Estimated Glomerular Filt Rate > 60; Glucose 129 mg/dL (65-110); Magnesium 2.1 mg/dL (1.6-2.3); Potassium 3.7 mmol/L (3.4-5.0); Sodium 138 mmol/L (137-145)
[2021-12-10] MEDS: ASPIRIN 81 MG CHEWABLE TABLET PO (08:12)
[2021-12-10] MEDS: CLOPIDOGREL BISULFATE 75 MG TABLET PO (09:44)
--- NOTE | 2021-12-10 10:07 | PM.IMPN ---
Progress Note: A&P Assessment and Plan (1) Chest pain: Qualifiers: Chest pain type: unspecified Qualified Code(s): R07.9 - Chest pain, unspecified Code(s): R07.9 - Chest pain, unspecified Status: Acute Assessment and Plan: -pt has not been taking her statin and continues to smoke cigarettes -troponin level trending upward -cardiology recommends keeping her in the hospital through the weekend and plan for angiogram Sunday -has concerns about staying the weekend due to financial hardships it may cause. On my interview today she agreed to stay. (2) Elevated troponin: Code(s): R77.8 - Other specified abnormalities of plasma proteins Status: Acute Assessment and Plan: -Plan is as detailed above. (3) Hypertension: Qualifiers: Hypertension type: unspecified Qualified Code(s): I10 - Essential (primary) hypertension Code(s): I10 - Essential (primary) hypertension Status: Acute Assessment and Plan: -Blood pressures were reviewed and they are not at goal. -Perhaps they are a bit elevated due to anxiety with hospitalization however we will need to monitor these closely and consider adjustments in her antihypertensives depending on her trend. -appreciate cardiology consult (4) Coronary artery disease: Onset Date: ~02/2017 Code(s): I25.10 - Atherosclerotic heart disease of [place] coronary artery without angina pectoris Status: Acute Assessment and Plan: -Status post drug-eluting stent to the right coronary artery in February 2021. -Continue dual anti-platelet therapy. -She has not been 100% compliant with her statin and we discussed the importance of taking this medication. (5) Tobacco abuse: Code(s): Z72.0 - Tobacco use Status: Acute Assessment and Plan: -Smoking cessation is imperative and was discussed. (6) Gastroesophageal reflux disease: Code(s): K21.9 - Gastro-esophageal reflux disease without esophagitis Status: Acute Assessment and Plan: -Continue famotidine as needed. -She declines the need for nicotine patch. Subjective Date/time seen: 12/10/21 10:07 Interval history: 41-year-old female smoker with hypertension, obesity, and coronary artery disease and history of acute inferior wall MA in February 2021 status post drug-eluting stent to the right coronary artery, admitted for chest pain and elevated troponin. Pt met with instant powder supervisor yesterday who recommends she stay in the hospital over the weekend for angiography on Sunday. Pt is very anxious and tearful because she has concerns about staying in the hospital due to financial hardships it will cause. She reports intermittent chest tightness but has no pain currently. She denies sob, LE pain or edema, N/V/abd pain. Review of Systems Review of Systems: All systems reviewed & are unremarkable except as noted in HPI and below Exam Narrative: General: Well-developed female in the semi-Byrd position in bed in no distress. Weight: 117 kg. BMI: 30.1. HEENT: PERRL. Sclerae anicteric. Oral mucosa moist. Neck: Supple. Respiratory: Lungs are clear to auscultation bilaterally. Cardiovascular: Regular rate and rhythm with S1-S2. No murmur or rub. Gastrointestinal: Abdomen is soft, nontender, and nondistended with positive bowel sounds. Skin: Warm and dry. No rash or lesions on limited exam. Extremities: Moves all 4 extremities. Radial and pedal pulses intact. Neurological: Alert. Cranial nerves 2-12 are grossly intact. No gross focal deficits to casual conversation. Psychiatric: normal affect, anxious Objective Data Vital Signs Vital Signs: Vital Signs - 24 hr 12/09/21 10:11 12/09/21 10:15 12/09/21 10:34 Temperature Pulse Rate 73 78 71 Respiratory Rate 16 18 17 Blood Pressure Pulse Oximetry 97 99 97 12/09/21 10:45 12/09/21 11:05 12/09/21 13:11 Tem
--- NOTE | 2021-12-10 11:32 | PM.PNCARD ---
Progress Note: A&P Assessment and Plan (1) NSTEMI (non-ST elevated myocardial infarction): Code(s): I21.4 - Non-ST elevation (NSTEMI) myocardial infarction Status: Acute Assessment and Plan: Mild troponin elevation complaints of chest pain on presentation. Currently asymptomatic in this regard. Very lengthy discussion held the patient with regards to suspected acute coronary event with recommendations for invasive angiography for delineation of her coronary anatomy and possible intervention. Discussed the potential for further myocardial injury and associated complications and or . Discussed the risks and dangers associated with procedure as well as discharge without following recommended therapy or against medical advice. Very lengthy discussion held with patient regarding psychosocial stressors and how this is making her feel. Patient verbalizes understanding and admits she is scared. Consoled her in this regard but encouraged her to continue to follow our recommendations. She is in agreement. Will plan for coronary angiography but the morning or sooner if severe and unrelenting chest pain noted. NPO after midnight Sunday night. Continue dual antiplatelet therapy. Spent 39 minutes at bedside with patient including discussion, examination, chart review, medical decision making, and documentation. (2) Coronary artery disease: Onset Date: ~02/2017 Code(s): I25.10 - Atherosclerotic heart disease of [place] coronary artery without angina pectoris Status: Acute Assessment and Plan: As above. History of STEMI with RCA stent implantation. DAPT, statin. BB would be advised but underlying bradycardia precludes at this time. (3) Tobacco abuse: Code(s): Z72.0 - Tobacco use Status: Acute Assessment and Plan: Immediate and absolute smoking cessation counseling. (4) Hypertension: Qualifiers: Hypertension type: unspecified Qualified Code(s): I10 - Essential (primary) hypertension Code(s): I10 - Essential (primary) hypertension Status: Acute Assessment and Plan: Remains elevated. Increase lisinopril to 10 mg daily. (5) Bradycardia: Code(s): R00.1 - Bradycardia, unspecified Status: Acute Assessment and Plan: As above unable to initiate beta-yoly therapy at this time. Subjective Date/time seen: Date of service: 12/10/21 11:32 Follow-up for CAD, chest pain, non ST elevation CT No recurrent chest pain or shortness of breath. Patient emotional this a.m. about undergoing heart catheterization once again of the difficulty she faced previously, has not seen her son in 6 months, in town this weekend. She otherwise feels okay. Has some mild nausea did not feel like eating this morning. Review of Systems Constitutional: Constitutional: Reports no additional constitutional complaints Eyes: Eyes: Reports no additional eye complaints ENT: Reports system reviewed and no additional complaints, except as documented Cardiovascular: Cardiovascular: Reports as per HPI Respiratory: Respiratory: Reports no additional respiratory complaints Gastrointestinal: Gastrointestinal: Reports as per HPI Musculoskeletal: Musculoskeletal: Reports no additional musculoskeletal complaints Integumentary/Breasts: Skin/Breast: Reports system reviewed and no additional complaints, except as docu Neurologic: Reports system reviewed and no additional complaints, except as documented Psychiatric: Psychiatric: Reports as per HPI Endocrine: Endocrine: Reports no additional endocrine complaints Hematologic/Lymphatic: Hematologic/Lymphatic: Reports no additional hematologic/lymphatic complaints Allergic/Immunologic: Allergic/Immunologic: Reports no additional allergic/immunologic complaints Exam Const: General: no acute distress Other: Obese, pleasant white female quite tearful and anxious but in no apparent distress breathing comfortably and
[2021-12-10] MEDS: lisinopriL 5 MG TABLET PO (19:51)
[2021-12-11] VITALS (12 sets, daily range): BP systolic 104–191; BP diastolic 56–110; PULSE 57–101; RESP 14–20; TEMP 35.1–36.6; O2SAT 96–100
--- NOTE | 2021-12-11 07:25 | PM.IMPN ---
Progress Note: A&P Assessment and Plan (1) Chest pain: Qualifiers: Chest pain type: unspecified Qualified Code(s): R07.9 - Chest pain, unspecified Code(s): R07.9 - Chest pain, unspecified Status: Acute Assessment and Plan: -pt has not been taking her statin and continues to smoke cigarettes with STENT history -troponin level trending upward on trops x3 at admission - repeated trop today, improved and down, but still abnormally high -cardiology recommends keeping her in the hospital through the weekend and plan for angiogram Sunday -patient has concerns about staying the weekend due to financial hardships it may cause. (2) Elevated troponin: Code(s): R77.8 - Other specified abnormalities of plasma proteins Status: Acute Assessment and Plan: Mild troponin elevation complaints of chest pain on presentation. Trops 0.043, 0.189, 0.231 elevated troponin persists today 0.092 continue telemetry monitoring ECHO ordered (3) Hypertension: Qualifiers: Hypertension type: unspecified Qualified Code(s): I10 - Essential (primary) hypertension Code(s): I10 - Essential (primary) hypertension Status: Acute Assessment and Plan: -Blood pressures at admissoin were not at goal. -Perhaps elevated due to anxiety with hospitalization however we will need to monitor these closely and consider adjustments in her antihypertensives depending on her trend. -appreciate cardiology consult BPs today 104/56 with HR 57-62 stable today. (4) Coronary artery disease: Onset Date: ~02/2017 Code(s): I25.10 - Atherosclerotic heart disease of [place] coronary artery without angina pectoris Status: Acute Assessment and Plan: -Status post drug-eluting stent to the right coronary artery in February 2021. History of STEMI with RCA stent implantation -Continue dual anti-platelet therapy. -She has not been 100% compliant with her statin and we discussed the importance of taking this medication. - DAPT, not taking statin at home. - BB would be advised but underlying bradycardia precludes at this time. HR still 57-64 at this time. continue telemetry monitoring (5) Tobacco abuse: Code(s): Z72.0 - Tobacco use Status: Acute Assessment and Plan: -Smoking cessation is imperative and was discussed. -Immediate and absolute smoking cessation counseling. (6) Gastroesophageal reflux disease: Code(s): K21.9 - Gastro-esophageal reflux disease without esophagitis Status: Acute Assessment and Plan: -Continue famotidine as needed. -no complaints, eating / drinking well. (7) NSTEMI (non-ST elevated myocardial infarction): Code(s): I21.4 - Non-ST elevation (NSTEMI) myocardial infarction Status: Acute Assessment and Plan: Mild troponin elevation complaints of chest pain on presentation. elevated troponin persists today plan for coronary angiography in the morning NPO after midnight Continue dual antiplatelet therapy. (8) Bradycardia: Code(s): R00.1 - Bradycardia, unspecified Status: Acute Assessment and Plan: unable to initiate beta-yoly therapy at this time. bradycardia precludes at this time. HR still 57-64 at this time. Subjective Date/time seen: 12/11/21 07:25 Interval history: Prem is a 41-year-old female smoker with hypertension, obesity, and coronary artery disease and history of acute inferior wall DC in February 2021 status post drug-eluting stent to the right coronary artery, admitted for chest pain and elevated troponin. She was frustrated with having to stay for cardiac cath in the morning. Stated that her peripheral IV was causing her much pain at this time and wanted it removed as soon as possible. Her chest pain has improved. Will repeat Troponin today and ordered ECHO, could be hypertrophy related s/p COVID. She denies SOB, LE pain or edema, N/V/abd pain. Review of Systems
[2021-12-11] MEDS: ASPIRIN 81 MG CHEWABLE TABLET PO (08:03)
[2021-12-11 08:08] LABS: Basophils Percent Auto 0.5 % (0.2-1.2); Eosinophils Absolute Auto 0.2 K/mm3 (0-0.3); Eosinophils Percent Auto 3.2 % (0-4.4); Hematocrit 44.9 % (37.0-47.0); Hemoglobin 14.7 g/dL (12.0-15.0); Immature Granulocyte Absolute 0.03 K/mm3 (0.00-0.031); Immature Granulocyte Percent A 0.4 % (0-0.5); Lymphocytes Absolute Auto 1.93 K/mm3 (0.9-3.2); Lymphocytes Percent Auto 25.5 % (18.3-44.2); Mean Corpuscular HGB Conc 32.7 g/dl (32-36); Mean Corpuscular Hemoglobin 30.8 pg (26-34); Mean Corpuscular Volume 94.1 fl (80-100); Monocytes Absolute Auto 0.5 K/mm3 (0.1-0.6); Monocytes Percent Auto 7.1 % (2.6-8.5); Neutrophils Absolute Auto 4.8 K/mm3 (1.3-6.7); Neutrophils Percent Auto 63.3 % (45.5-73.1); Platelet Count Result 225 k/mm3 (150-375); Red Blood Count 4.77 M/mm3 (4.2-5.4); Red Cell Distribution Width 13.2 % (11.5-14.5); White Blood Count 7.6 K/mm3 (4.5-10.0)
[2021-12-11 08:17] LABS: Alanine Aminotransferase 10 U/L (4-35); Albumin Level 3.8 g/dL (3.5-5.1); Alkaline Phosphatase 58 U/L (38-126); Anion Gap 6 mmol/L (8-16); Aspartate Amino Transferase 19 U/L (14-36); Bilirubin,Total 0.4 mg/dL (0.2-1.3); Blood Urea Nitrogen 7 mg/dL (7-17); Calcium 8.5 mg/dL (8.4-10.2); Carbon Dioxide 22 mmol/L (22-30); Chloride 110 mmol/L (98-107); Estimated CRCL calculation 113 ml/min; Estimated Glomerular Filt Rate > 60; Glucose 98 mg/dL (65-110); Potassium 4.2 mmol/L (3.4-5.0); Sodium 138 mmol/L (137-145)
[2021-12-11 08:22] LABS: CRP 0.9 mg/dL (<1.0); Phosphorus 3.4 mg/dL (2.5-4.5)
[2021-12-11 08:26] LABS: NT Pro B Type Natriuretic Pept 39 pg/mL (5-100)
[2021-12-11 08:53] LABS: Troponin I 0.092 ng/mL (0.000-0.034)
[2021-12-11 09:31] LABS: Erythrocyte Sedimentation Rate 17 mm/hr (0-20)
--- NOTE | 2021-12-11 11:25 | PM.PNCARD ---
Progress Note: A&P Assessment and Plan (1) NSTEMI (non-ST elevated myocardial infarction): Code(s): I21.4 - Non-ST elevation (NSTEMI) myocardial infarction Status: Acute Assessment and Plan: Mild troponin elevation with complaints of chest pain on presentation without recurrence. Again, discussed suspected acute coronary event with recommendations for invasive angiography for delineation of her coronary anatomy and possible intervention. Risks, benefits, alternatives once again discussed. All questions answered to her satisfaction. She is in agreement. -NPO after midnight for coronary angiography Sunday. Do not hold aspirin or clopidogrel. She may take her medications with small sips of water tomorrow morning. -DVT prophylaxis with SCDs ordered. Not noted to be present at bedside although patient admits she has been getting up frequently in ambulating in her room and to the restroom. Notified nurse who was at bedside who stated she would apply them immediately to be worn while the patient was in bed. Patient verbalized understanding of this importance as well. -further recommendation to follow after review of angiography tomorrow. Discussed potential disposition timing depending upon results, procedural tolerance, intervention and ultimate plan of care. Spent 25 minutes in the care of this patient today including examination and discussions at bedside, chart review, medical decision making, and documentation. (2) Coronary artery disease: Onset Date: ~02/2017 Code(s): I25.10 - Atherosclerotic heart disease of [place] coronary artery without angina pectoris Status: Acute Assessment and Plan: As above. History of STEMI with RCA stent implantation. DAPT, statin. BB would be advised but underlying bradycardia precludes at this time. Check lipid panel in a.m.. BMP and CBC ordered. Discussed the critical importance of compliance with statin therapy. Patient reports intolerance statin myopathy with rosuvastatin. So far tolerating atorvastatin 20 mg at bedtime goal LDL< 70. PCSK9 inhibitor therapy alternative if unable to tolerate any statin therapy and or lipids remains suboptimally controlled. We discussed these options at length. Echo ordered by primary service. (3) Tobacco abuse: Code(s): Z72.0 - Tobacco use Status: Acute Assessment and Plan: Immediate and absolute smoking cessation counseling. We discussed the critical importance of this once again particularly given her family history and personal history of CAD with prior myocardial infarction she verbalized understanding. (4) Hypertension: Qualifiers: Hypertension type: unspecified Qualified Code(s): I10 - Essential (primary) hypertension Code(s): I10 - Essential (primary) hypertension Status: Acute Assessment and Plan: Remains elevated. Increase lisinopril to 10 mg daily. (5) Bradycardia: Code(s): R00.1 - Bradycardia, unspecified Status: Acute Assessment and Plan: As above unable to initiate beta-yoly therapy at this time. Subjective Date/time seen: Date of service: 12/11/21 11:25 Follow-up for chest pain, CAD, NSTEMI No recurrent chest pain or shortness of breath overnight. Patient remains somewhat anxious but better overall. No new issues overnight. Patient asked questions are what to anticipate tomorrow with left heart catheterization. All questions answered to her satisfaction. Tolerating current medications. Discussed importance of compliance with recommendations, follow-up, statin therapy and smoking cessation particularly given her history. No edema, bleeding. No significant arrhythmias on telemetry. Review of Systems Review of Systems: All systems reviewed & are unremarkable except as noted in HPI and below Constitutional: Constitutional: Reports as per HPI and Reports no additional constitutional complaints Eyes: Eyes: Reports as per HP
[2021-12-11] MEDS: lisinopriL 10 MG TABLET PO (20:14)
[2021-12-12] VITALS (31 sets, daily range): BP systolic 126–188; BP diastolic 79–106; PULSE 55–82; RESP 12–22; TEMP 36.1–36.7; O2SAT 18–99
--- NOTE | 2021-12-12 | ECHO_ITS ---
Patient Info Name: Prem Rao Age: 41 years : 1980 Gender: Female Ht: 69 in Wt: 261 lbs BSA: 2.45 m2 HR: 78 bpm BP: 154 / 89 mmHg Heart Rhythm: Sinus Rhythm Technical Quality: Fair Exam Date: 12/12/2021 8:41 AM Exam Location: [facility] Patient Status: Inpatient Admit Date: 12/10/2021 Staff Ordering Physician: Danita Parker NP Lmft: Mag Ewing RDCS Attending Provider: Franca Candelaria PA-C Referring Physician: Keith TAN; Exam Type: CA echo doppler color flow Study Info Indications - chest pain, elevated troponin Complete two-dimensional, color flow and Doppler transthoracic echocardiogram is performed. Summary 1. Complete two-dimensional, color flow and Doppler transthoracic echocardiogram is performed. 2. Left ventricular systolic function is normal, estimated at 60-65%. 3. The left ventricular diastolic function is grade II diastolic dysfunction. 4. Mild biatrial dilation. 5. Trivial amount of tricuspid valve insufficiency. Left Ventricle Left ventricular chamber dimension is normal. Left ventricular systolic function is normal, estimated at 60-65%. The left ventricular diastolic function is grade II diastolic dysfunction. Right Ventricle Right ventricular chamber dimension is normal. Left Atria Left atrial chamber dimension is mildly enlarged. Right Atria Right atrial chamber dimension is mildly enlarged. Aortic Valve The aortic valve is normal. Pulmonic Valve The pulmonic valve is normal. Mitral Valve The mitral valve has normal leaflets. Tricuspid Valve The tricuspid valve leaflets are normal. There is trace tricuspid valve regurgitation. Pericardium/Pleural The pericardium appears normal. Aorta The aortic root size at the sinus of Valsalva is normal. Left Ventricular Outflow Tract Name Value Normal LVOT 2D LVOT Diameter 2.0 cm LVOT Doppler LVOT Peak Gradient 6 mmHg LVOT Mean Gradient 2 mmHg LVOT VTI 23 cm LVOT VTI/AV VTI Ratio 0.8 LVOT Stroke Volume 74 ml LVOT CO 4.5 l/min LVOT CI 1.9 l/min/m2 Pulmonic Valve Name Value Normal RVOT Doppler RVOT Peak Gradient 2 mmHg PV Doppler PV Peak Gradient 4 mmHg Mitral Valve Name Value Normal MV Doppler MV Decel Hart 744 cm/s2
[2021-12-12 04:48] LABS: Basophils Absolute Auto 0.1 K/mm3 (0.0-0.1); Basophils Percent Auto 0.7 % (0.2-1.2); Eosinophils Absolute Auto 0.3 K/mm3 (0-0.3); Hematocrit 43.2 % (37.0-47.0); Hemoglobin 14.7 g/dL (12.0-15.0); Immature Granulocyte Absolute 0.03 K/mm3 (0.00-0.031); Immature Granulocyte Percent A 0.3 % (0-0.5); Lymphocytes Percent Auto 26.5 % (18.3-44.2); Mean Corpuscular Hemoglobin 30.6 pg (26-34); Mean Platelet Volume 9.7 fl (7.4-10.4); Monocytes Absolute Auto 0.7 K/mm3 (0.1-0.6); Monocytes Percent Auto 7.7 % (2.6-8.5); Neutrophils Absolute Auto 5.4 K/mm3 (1.3-6.7); Neutrophils Percent Auto 61.8 % (45.5-73.1); Platelet Count Result 230 k/mm3 (150-375); Red Cell Distribution Width 12.9 % (11.5-14.5); White Blood Count 8.7 K/mm3 (4.5-10.0)
[2021-12-12 05:00] LABS: Anion Gap 5 mmol/L (8-16); Blood Urea Nitrogen 10 mg/dL (7-17); Calcium 8.7 mg/dL (8.4-10.2); Carbon Dioxide 24 mmol/L (22-30); Chloride 108 mmol/L (98-107); Cholesterol 218 mg/dL (0-200); Estimated CRCL calculation 128 ml/min; Estimated Glomerular Filt Rate > 60; Glucose 96 mg/dL (65-110); HDL Direct 29 mg/dL; Sodium 137 mmol/L (137-145); Triglycerides 357 mg/dL (<150)
[2021-12-12 05:11] LABS: LDL Cholesterol Direct 126 mg/dL
[2021-12-12] MEDS: ASPIRIN 81 MG CHEWABLE TABLET PO (09:31)
--- NOTE | 2021-12-12 11:56 | WPDMODSED ---
Moderate Sedation Note-Pt Data Patient Data Diagnosis: coronary artery disease with PCI to the right coronary artery in February of 2021 in the setting of acute inferior LA recurrent chest pain Present Complaint: chest pain with swallowing as well as physical activity Procedure to be performed/Plan: left heart catheterization Allergies Allergy/AdvReac Type Severity Reaction Status Date / Time erythromycin base Allergy Unknown Verified 12/09/21 09:51 Home Medications Medication Instructions Recorded Confirmed Type famotidine 20 mg PO BID PRN 07/11/20 12/09/21 History aspirin [Children's Aspirin] 81 mg PO DAILY@0800 #30 tablet 02/23/21 12/09/21 Rx lisinopril 5 mg PO DAILY #30 tablet 02/23/21 12/09/21 Rx nitroglycerin [Nitrostat] 0.4 mg SUBLINGUAL Q5MIN PRN #30 02/23/21 12/09/21 Rx tablet meclizine 25 mg PO QID PRN #30 tablet 03/29/21 12/09/21 Rx clopidogrel [Plavix] 75 mg PO DAILY 04/13/21 12/09/21 History atorvastatin 20 mg PO DAILY 12/09/21 12/09/21 History Current Medications: Active Medications Amlodipine Besylate (Amlodipine Besylate 5 Mg Tablet) 5 mg PO NOON [facility] Last Admin: 12/11/21 17:00 Dose: Not Given Documented by: Aspirin (Aspirin 81 Mg Chewable Tablet) 81 mg PO DAILY@0800 [facility] Last Admin: 12/12/21 09:31 Dose: 81 mg Documented by: Atorvastatin Calcium (Atorvastatin 20 Mg Tablet) 20 mg PO DAILY [facility] Last Admin: 12/12/21 09:29 Dose: Not Given Documented by: Clopidogrel Bisulfate (Clopidogrel Bisulfate 75 Mg Tablet) 75 mg PO DAILY [facility] Last Admin: 12/12/21 09:30 Dose: Not Given Documented by: Famotidine (Famotidine 20 Mg Tablet) 20 mg PO BID PRN PRN Reason: indegestion Hydroxyzine HCl (Hydroxyzine Hcl 25 Mg Tablet) 25 mg PO Q6H PRN PRN Reason: Anxiety Lisinopril (Lisinopril 10 Mg Tablet) 10 mg PO HS [facility] Last Admin: 12/11/21 20:14 Dose: 10 mg Documented by: Nitroglycerin (Nitroglycerin Sl 0.4 Mg Tablet) 0.4 mg SUBLINGUAL Q5MIN PRN PRN Reason: Chest Pain Perflutren Lipid Microsphere (Perflutren Lipid Microspheres 1.5 Ml Vial Diluted To 10 Ml Total Volume) 0 ml IV PUSH ONCE PRN; Protocol PRN Reason: adequate visualization Sedation/Anesthesia: No previous sedation/anesthesia problems (including family history). [facility] Past Medical History Medical History Coronary artery disease (~02/2017) Gastroesophageal reflux disease Hypertension Obesity Polycystic ovarian syndrome STEMI (ST elevation myocardial infarction) (02/2021) Tobacco abuse Surgical History Surgical History History of cardiac catheterization (02/21/21) History of coronary artery stent placement (02/21/21) Drug-eluting stent to the right coronary artery per Dr. Gomes. Family History Family History Father Acute myocardial infarction CAD (coronary artery disease) Daughter No problems noted. Mother Lung cancer Social History Social History Social History: Surrogate decision maker: Vonnie Laird, sister. Code status: Full code. Smoking packs per day: 1 Smoking cigarettes per day: 20.0 Years smoked: 25 Smoking pack-years: 25.00 Smoking status: Current every day smoker Additional smoking assessment comments: Since LA in 2020 she is now smoking half a pack a day or less. Alcohol intake: never Substance use: never Mod Sed Physical Exam Physical Exam Pre Procedural Exam: Normal: Neck, Throat, Airway, Lungs, Heart Size, Heart Rate, Heart Rhythm, Neuro Exam and Extremities and Variation: Appearance ( obese white female rather anxious) Hours since solid foods: 12 Hours since liquid intake: 12 Mallampati Classification: class II Internal Medicine - PN: Obj Da Vital Signs Vital Signs: Vital Signs - 24 hr 12/11/21 12:00 12/11/21 14:00 12/11/21 16:
[2021-12-12] MEDS: CLOPIDOGREL BISULFATE 75 MG TABLET PO (12:16)
--- NOTE | 2021-12-12 13:30 | ECG_ITS ---
Measurements Intervals [place] Rate: 61 P: 44 NC: 145 QRS: 62 QRSD: 92 T: 78 QT: 419 QTc: 425 Interpretive Statements SINUS RHYTHM NORMAL ECG COMPARED TO ECG 12/09/2021 09:44:31 NO SIGNIFICANT CHANGES Electronically Signed On 12-12-2021 15:53:10 [employer] [place] by Remi Gomes M.D.
--- NOTE | 2021-12-12 13:34 | WPDCARDPROC ---
Cardiac Cath Procedure Note Date of procedure:: 12/12/21 Performing physician:: Remi Gomes MD Indication:: exertional chest pain coronary artery disease with W[place] treated with proximal RCA stenting February of 2021 ongoing smoking noncompliance with statin the treatment Brief clinical history:: this is a 41-year-old woman who is a chronic smoker who was found to have coronary disease in February of 2021 which presented with acute inferior wall W[place]. this was treated with emergency RCA stenting. She had mild plaquing throughout the left coronary artery but no significant stenosis at that time. She now enters the hospital with 2-3 weeks of intermittent chest pain that is suspicious for recurrent ischemia. A very mild troponin rise has been noted. Procedure Procedure performed:: Coronary angiogram PCI (HOMAR) to proximal LAD Sedation/Medication given:: no sedation administered per patient request case start time 12:53 p.m. case end time 1:23 p.m. Access site:: right femoral artery Estimated blood loss:: 30 cc Procedure note:: patient was brought to the cardiac catheterization lab in the postabsorptive state where the right femoral triangle was prepared and draped in the normal fashion. Anesthesia was provided with 1% lidocaine infiltrated locally. Using the modified Seldinger technique a 5 Somali sheath was placed into the right femoral artery. After this left heart catheterization was carried out. I used a 5 Somali FL4 catheter to engage and inject the left coronary artery in multiple projections I then used a 5 Somali JR4 catheter to engage and inject the right coronary artery. The cine angiograms were reviewed and PCI of the proximal LAD was recommended and carried out as detailed below. 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 She was anticoagulated with bolus and infusion of dabigatran for this PCI. Following the intervention the sheath was sutured into position she was taken to the holding area for recovery and sheath removal. Patient was still having mild ischemic chest pain following the PCI which was treated with nitro spray and IV metoprolol in the cardiac catheterization lab. Findings:: Hemodynamics: Central aortic pressure case varied from 180/95 to 138/80. The left ventricle was not entered during the procedure left main coronary artery is medium in caliber and nicely patent the left anterior descending is a medium caliber artery and has a high-grade proximal 95% stenosis which is fairly discrete. The remainder of the LAD distal to this has mild diffuse atherosclerosis but with ANDREWS 3 flow down to the apex. The high-grade proximal LAD lesion was not apparent in February last year. Circumflex is a moderate caliber artery giving rise to marginal branches. The circumflex system has mild luminal irregularities but no flow-limiting disease is seen. The right coronary artery is moderate caliber dominant to the posterior circulation. There is minimal narrowing about 30% prior to the previously deployed stent from February last year. The stented segment is widely patent with no loss of lumen there is otherwise no significant disease in the RCA. Intervention: The left coronary artery was engaged using a the 6 Somali CLS 3.5 guiding catheter. I used a 0.014 BMW coronary guidewire to traverse the lesion and advance the wire down to the apical portion of the distal LAD. The target lesion was then pre-dilated using a 3 x 12 mm emerge balloon at nominal pressure. I then deployed a 3.5 by 15 mm Orsiro drug-eluting stent at the target lesion with an excellent angiographic result with no residual stenosis disruption dissection or distal embolization. Conclusion:: 1. Coronary artery disease with severe progression in the proximal LAD with 95% proximal stenosis compared to February last . 2. Remaining patency of proximal RCA stent wh
[2021-12-12] MEDS: amLODIPine BESYLATE 5 MG TABLET PO (14:05)
[2021-12-12] MEDS: lisinopriL 10 MG TABLET PO (14:05)
[2021-12-12] MEDS: hydrALAZINE HCL 20 MG/ML VIAL 10 MG IV PUSH ×2 (14:15→16:00)
--- NOTE | 2021-12-12 14:24 | SUR.PHASEII ---
call to MONTY robledo concerning patient's high blood pressure. will give patient's morning PO meds and v/o for 10mg of IV hydralazine given.
[2021-12-12] MEDS: ACETAMINOPHEN 325 MG TABLET 650 MG PO (16:42)
--- NOTE | 2021-12-12 17:01 | PM.IMPN ---
Progress Note: A&P Additional Plan 41-year-old female smoker with hypertension, obesity, and coronary artery disease and history of acute inferior wall AR in February 2021 status post drug-eluting stent to the right coronary artery, admitted for chest pain and elevated troponin.s/p cardiac cath today 1)NSTEMI: S/p cardiac cath today Post cath care as per cardiology C/w ASA, Plavix, BB Increase dose of statin to full dose BP optimization Increase dose of Norvasc c/w Lisinopril Recheck BMP in AM Smoking cessation counseling 2)DVT ppx: hep SQ starting tomorrow morning 3)Code:Full 4)Dispo:potential discharge in AM if ok with cadiology Time Spent With Patient Time with patient: 25 - 35 minutes Subjective Date/time seen: 12/12/21 17:01 Interval history: s/p cardiac cath today Review of Systems Review of Systems: All systems reviewed & are unremarkable except as noted in HPI and below Constitutional: Constitutional: Reports no additional constitutional complaints Eyes: Eyes: Reports as per HPI ENT: Reports system reviewed and no additional complaints, except as documented Cardiovascular: Cardiovascular: Reports no additional cardiovascular complaints Respiratory: Respiratory: Reports no additional respiratory complaints Gastrointestinal: Gastrointestinal: Reports no additional gastrointestinal complaints Neurologic: Reports headache(s) Exam Const: General: no acute distress HENMT: Mouth: Yes moist mucous membranes Eyes: General: appearance normal, both eyes and all related structures Neck: Neck: supple Resp: Effort & Inspection: normal respiratory effort Auscultation: clear to auscultation bilaterally Cardio: Rate: regular rate Rhythm: regular rhythm GI: GI Palp: Yes Soft to palpation Auscultation: normal bowel sounds Skin: General skin exam: normal color Other: groin cath site with dressing C/D/I Neuro: Cognition (Neuro): normal cognition Psych: Mental Status: mental status grossly normal Objective Data Vital Signs Vital Signs: Vital Signs - 24 hr 12/11/21 18:00 12/11/21 20:00 12/11/21 22:00 Temperature 97.8 F Pulse Rate 90 64 67 Respiratory Rate 20 Blood Pressure 187/87 H Pulse Oximetry 97 12/12/21 00:00 12/12/21 02:00 12/12/21 04:00 Temperature 98.0 F 98.0 F Pulse Rate 78 59 L 58 L Respiratory Rate 18 20 Blood Pressure 161/80 H 154/89 H Pulse Oximetry 97 98 12/12/21 05:56 12/12/21 08:00 12/12/21 12:00 Temperature 97.1 F L 97 F L Pulse Rate 78 76 68 Respiratory Rate 18 16 Blood Pressure 161/100 H 188/104 H Pulse Oximetry 18 L 99 12/12/21 13:47 12/12/21 14:00 12/12/21 14:15 Temperature Pulse Rate 55 L 55 L 59 L Respiratory Rate 16 16 16 Blood Pressure 154/106 H 161/88 H 126/87 Pulse Oximetry 94 93 93 12/12/21 14:34 12/12/21 15:50 12/12/21 15:55 Temperature Pulse Rate 62 61 68 Respiratory Rate 17 12 22 H Blood Pressure 136/81 154/89 H 172/101 H Pulse Oximetry 97 98 98 12/12/21 16:05 12/12/21 16:10 12/12/21 16:15 Temperature Pulse Rate 76 76 75 Respiratory Rate 20 20 Blood Pressure 157/98 H 157/88 H 165/89 H Pulse Oximetry 98 97 97 12/12/21 16:20 12/12/21 16:33 Temperature Pulse Rate 74 73 Respiratory Rate 22 H 18 Blood Pressure 155/91 H 157/95 H Pulse Oximetry 98 97 Intake/Output Intake/Output: Intake & Output 12/09/21 12/10/21 12/11/21 12/12/21 23:59 23:59 23:59 23:59 Intake Total 240 1190 1480 500 Output Total 350 Balance 731 537 5515 500 Meds/Results Medications: Active Medications Generic Name Dose Route Start Last Admin Trade Name Angela PRN Reason Stop Dose Admin Acetaminophen 650 mg 12/12/21 16:30 12/12/21 16:42 Acetaminophen 325 Mg Tablet PO 650 mg Q4H PRN Administration Headache Amlodipine Besylate 5 mg 12/11/21 15:55 12/12/21 14:05 Amlodipine Besylate 5 Mg Tablet PO 5 mg NOON YONIS Administration Aspirin 81 mg 12/10/21 08:00 12/12/21 09:31 Asp
[2021-12-12 18:37] LABS: Cholesterol 232 mg/dL (0-200); HDL Direct 34 mg/dL; Triglycerides 339 mg/dL (<150)
[2021-12-12 18:47] LABS: LDL Cholesterol Direct 144 mg/dL
--- NOTE | 2021-12-12 19:39 | PC.NURSE ---
Assessed pt. @ 1920 pt. stable AO x 3 no complaints. Informed patient that the doctor still wants her to wear scd's to prevent blood clots from forming. Pt. began to become irate stating that she doesnt see why she has to wear scds explained to patient due to her medical history or coronary artery blockage she is more susceptible to form clots. Pt. verbalized understanding and stated that she would wear the scds at 1020 pm. Will follow patients compliance/status.
[2021-12-12] MEDS: METOPROLOL TARTRATE 25 MG TABLET PO (20:36)
[2021-12-13] VITALS (10 sets, daily range): BP systolic 123–135; BP diastolic 75–82; PULSE 57–82; RESP 18–20; TEMP 36.4–36.8; O2SAT 98–99
--- NOTE | 2021-12-13 05:11 | ECG_ITS ---
Measurements Intervals [place] Rate: 63 P: 35 WA: 150 QRS: 51 QRSD: 106 T: 76 QT: 413 QTc: 426 Interpretive Statements SINUS RHYTHM PROBABLE INFERIOR MYOCARDIAL INFARCTION , OLD COMPARED TO ECG 12/12/2021 14:56:55 NO SIGNIFICANT CHANGES Electronically Signed On 12-13-2021 9:48:13 BUSHLER by Dirk Haskins M.D.
[2021-12-13 05:16] LABS: Basophils Absolute Auto 0.1 K/mm3 (0.0-0.1); Basophils Percent Auto 0.5 % (0.2-1.2); Eosinophils Absolute Auto 0.2 K/mm3 (0-0.3); Eosinophils Percent Auto 1.6 % (0-4.4); Hemoglobin 14.1 g/dL (12.0-15.0); Immature Granulocyte Absolute 0.05 K/mm3 (0.00-0.031); Immature Granulocyte Percent A 0.5 % (0-0.5); Lymphocytes Absolute Auto 1.91 K/mm3 (0.9-3.2); Lymphocytes Percent Auto 19.8 % (18.3-44.2); Mean Corpuscular HGB Conc 33.6 g/dl (32-36); Mean Corpuscular Hemoglobin 31.1 pg (26-34); Mean Corpuscular Volume 92.7 fl (80-100); Mean Platelet Volume 10.1 fl (7.4-10.4); Monocytes Absolute Auto 0.8 K/mm3 (0.1-0.6); Monocytes Percent Auto 7.8 % (2.6-8.5); Neutrophils Absolute Auto 6.7 K/mm3 (1.3-6.7); Neutrophils Percent Auto 69.8 % (45.5-73.1); Platelet Count Result 225 k/mm3 (150-375); Red Blood Count 4.53 M/mm3 (4.2-5.4); Red Cell Distribution Width 13.1 % (11.5-14.5); White Blood Count 9.6 K/mm3 (4.5-10.0)
[2021-12-13 05:26] LABS: Anion Gap 5 mmol/L (8-16); Blood Urea Nitrogen 10 mg/dL (7-17); Calcium 8.5 mg/dL (8.4-10.2); Carbon Dioxide 23 mmol/L (22-30); Chloride 108 mmol/L (98-107); Estimated CRCL calculation 113 ml/min; Estimated Glomerular Filt Rate > 60; Glucose 92 mg/dL (65-110); Potassium 3.8 mmol/L (3.4-5.0); Sodium 136 mmol/L (137-145)
[2021-12-13 06:19] LABS: Beta HCG Quantitative < 2.39 mIU/ML
[2021-12-13] MEDS: CLOPIDOGREL BISULFATE 75 MG TABLET PO (09:31)
[2021-12-13] MEDS: METOPROLOL TARTRATE 25 MG TABLET PO (09:31)
[2021-12-13] MEDS: ASPIRIN 81 MG CHEWABLE TABLET PO (09:31)
--- NOTE | 2021-12-13 10:07 | PM.DS ---
DS: Admitting Diagnosis Discharge Date 12/13/2021 Admitting Diagnosis chest pain DS: Discharge Diagnosis Discharge Diagnosis (1) NSTEMI (non-ST elevated myocardial infarction): Code(s): I21.4 - Non-ST elevation (NSTEMI) myocardial infarction Status: Acute Assessment and Plan: Mild troponin elevation with complaints of chest pain on presentation without recurrence. Again, discussed suspected acute coronary event with recommendations for invasive angiography for delineation of her coronary anatomy and possible intervention. Underwent coronary angiography and PCI yesterday. Findings and intervention as below... 1. Coronary artery disease with severe progression in the proximal LAD with 95% proximal stenosis compared to February of last year. 2. Remaining patency of proximal RCA stent which deployed last February as an emergency during inferior AK 3. Angiographically successful PCI of proximal LAD lesion. -Continue ASA, Plavix, statin. -Reinforced absolute compliance with these medications -Smoking cessation (2) Coronary artery disease: Onset Date: ~02/2017 Code(s): I25.10 - Atherosclerotic heart disease of [place] coronary artery without angina pectoris Status: Acute Assessment and Plan: As above. History of STEMI with RCA stent implantation. Repeat coronary angiography yesterday revealed 95% stenosis of LAD which was stented with a good anatomical result. -Continue DAPT, statin, metoprolol -Again reinforced medication compliance. (3) Hypertension: Qualifiers: Hypertension type: unspecified Qualified Code(s): I10 - Essential (primary) hypertension Code(s): I10 - Essential (primary) hypertension Status: Acute Assessment and Plan: Currently at goal. (4) Tobacco abuse: Code(s): Z72.0 - Tobacco use Status: Acute Assessment and Plan: Immediate and absolute smoking cessation counseling. We discussed the critical importance of this once again particularly given her family history and personal history of CAD with prior myocardial infarction she verbalized understanding. (5) Bradycardia: Code(s): R00.1 - Bradycardia, unspecified Status: Acute Assessment and Plan: Not significant. Tolerating beta yoly thus far. DS: Summary Time Spent with Patient Time attestation: Total time spent providing and/or coordinating discharge services: 37 minutes Exam Const: General: no acute distress HENMT: Mouth: Yes moist mucous membranes Eyes: Sclera: sclerae normal Pupils: Equal, round and reactive pupils present Neck: Neck: supple and no JVD Other: Normal carotid pulses bilaterally Resp: Effort & Inspection: normal respiratory effort Auscultation: clear to auscultation bilaterally Cardio: Rate: regular rate Rhythm: regular rhythm GI: Auscultation: normal bowel sounds Skin: General skin exam: normal color Neuro: Cranial nerves: Yes Equal, round and reactive pupils present Cognition (Neuro): normal cognition Extrem: General: normal to inspection DS: Data Data Completed and Pending Labs on day of discharge: Labs from last 24 hours 12/13/21 12/13/21 12/12/21 04:32 04:32 18:12 WBC 9.6 RBC 4.53 Hgb 14.1 Hct 42.0 MCV 92.7 MCH 31.1 MCHC 33.6 RDW 13.1 Plt Count 225 MPV 10.1 Immature Gran % (Auto) 0.5 Neut % (Auto) 69.8 Lymph % (Auto) 19.8 [place] % (Auto) 7.8 Eos % (Auto) 1.6 Baso % (Auto) 0.5 Lymph # (Auto) 1.91 [place] # (Auto) 0.8 H Eos # (Auto) 0.2 Baso # (Auto) 0.1 Abs Immat Gran (auto) 0.05 H Absolute Neuts (auto) 6.7 Absolute Nucleated RBC 0.0 Nucleated RBC % 0.0 Sodium 136 L Potassium 3.8 Chloride 108 H Carbon Dioxide 23 Anion Gap 5 L BUN 10 Creatinine 0.80 Estim Creat Clear Calc 113 Estimated GFR > 60 Glucose 92 Calcium 8.5 Triglycerides 339 H Cholesterol 232 H LDL Blanca
--- NOTE | 2021-12-13 10:39 | PM.PNCARD ---
Progress Note: A&P Assessment and Plan (1) NSTEMI (non-ST elevated myocardial infarction): Code(s): I21.4 - Non-ST elevation (NSTEMI) myocardial infarction <BLAYNE Simmons - Last Filed: 12/13/21 10:43> Status: Acute <BLAYNE Simmons - Last Filed: 12/13/21 10:43> Assessment and Plan: Mild troponin elevation with complaints of chest pain on presentation without recurrence. Again, discussed suspected acute coronary event with recommendations for invasive angiography for delineation of her coronary anatomy and possible intervention. Underwent coronary angiography and PCI yesterday. Findings and intervention as below... 1. Coronary artery disease with severe progression in the proximal LAD with 95% proximal stenosis compared to February of last year. 2. Remaining patency of proximal RCA stent which deployed last February as an emergency during inferior AK 3. Angiographically successful PCI of proximal LAD lesion. -Continue ASA, Plavix, statin. -Reinforced absolute compliance with these medications -Smoking cessation <BLAYNE Simmons - Last Filed: 12/13/21 10:43> (2) Coronary artery disease: Onset Date: ~02/2017 <BLAYNE Simmons - Last Filed: 12/13/21 10:43> Code(s): I25.10 - Atherosclerotic heart disease of [place] coronary artery without angina pectoris <BLAYNE Simmons - Last Filed: 12/13/21 10:43> Status: Acute <BLAYNE Simmons - Last Filed: 12/13/21 10:43> Assessment and Plan: As above. History of STEMI with RCA stent implantation. Repeat coronary angiography yesterday revealed 95% stenosis of LAD which was stented with a good anatomical result. -Continue DAPT, statin, metoprolol -Again reinforced medication compliance. <BLANYE Simmons - Last Filed: 12/13/21 10:43> (3) Hypertension: Qualifiers: Hypertension type: unspecified Qualified Code(s): I10 - Essential (primary) hypertension <BLAYNE Simmons - Last Filed: 12/13/21 10:43> Code(s): I10 - Essential (primary) hypertension <Soniya CrouchBLAYNE - Last Filed: 12/13/21 10:43> Status: Acute <Soniya Crouch JUDEFarhatJerrica - Last Filed: 12/13/21 10:43> Assessment and Plan: Currently at goal. <Soniya KanJUDE naqviFarhatJerrica - Last Filed: 12/13/21 10:43> (4) Tobacco abuse: Code(s): Z72.0 - Tobacco use <Soniya CrouchJUDESandra - Last Filed: 12/13/21 10:43> Status: Acute <Soniya CrouchJUDESandra - Last Filed: 12/13/21 10:43> Assessment and Plan: Immediate and absolute smoking cessation counseling. We discussed the critical importance of this once again particularly given her family history and personal history of CAD with prior myocardial infarction she verbalized understanding. <Soniya LevyDiamond BLAYNE Crouch - Last Filed: 12/13/21 10:43> (5) Bradycardia: Code(s): R00.1 - Bradycardia, unspecified <Soniya KanBLAYNE naqvi - Last Filed: 12/13/21 10:43> Status: Acute <Soniya CrouchJUDEFarhatJerrica - Last Filed: 12/13/21 10:43> Assessment and Plan: Not significant. Tolerating beta yoly thus far. <Soniya A. WillaBLAYNE naqvi - Last Filed: 12/13/21 10:43> Subjective Date/time seen: 12/13/21 10:39 Cardiology follow up for CAD, NSTEMI Patient is feeling well this morning. Reports some dizziness after taking metoprolol this morning. Dizziness has subsided at this point. Reports occasional bursts of discomfort in her chest. No chest pain currently. No shortness of breath. <BLAYNE Simmons - Last Filed: 12/13/21 10:43> Review of Systems Review of Systems: All systems reviewed & are unremarkable except as noted in HPI and below <BLAYNE Simmons - Last Filed: 12/13/21 10:43> Constitutional: Constitutional: Reports as per HPI and Reports no additional constitutional complaints <Soniya Crouch, JUDE-C - Last Filed: 12/13/21 10:43> Eyes: Eye
--- NOTE | 2021-12-13 11:29 | PM.DS ---
DS: Summary Time Spent with Patient Time attestation: Total time spent providing and/or coordinating discharge services: DS: Data Data Completed and Pending Labs on day of discharge: Labs from last 24 hours 12/13/21 12/13/21 12/12/21 04:32 04:32 18:12 WBC 9.6 RBC 4.53 Hgb 14.1 Hct 42.0 MCV 92.7 MCH 31.1 MCHC 33.6 RDW 13.1 Plt Count 225 MPV 10.1 Immature Gran % (Auto) 0.5 Neut % (Auto) 69.8 Lymph % (Auto) 19.8 [place] % (Auto) 7.8 Eos % (Auto) 1.6 Baso % (Auto) 0.5 Lymph # (Auto) 1.91 [place] # (Auto) 0.8 H Eos # (Auto) 0.2 Baso # (Auto) 0.1 Abs Immat Gran (auto) 0.05 H Absolute Neuts (auto) 6.7 Absolute Nucleated RBC 0.0 Nucleated RBC % 0.0 Sodium 136 L Potassium 3.8 Chloride 108 H Carbon Dioxide 23 Anion Gap 5 L BUN 10 Creatinine 0.80 Estim Creat Clear Calc 113 Estimated GFR > 60 Glucose 92 Calcium 8.5 Triglycerides 339 H Cholesterol 232 H LDL Cholesterol Direct 144 HDL Direct 34 Beta HCG, Quant < 2.39 Discharge Plan Discharge Attending physician on discharge: Kinjal Suarez Consulting providers: Sidney Mathews ; Ana Malloy Discharging Clinician: Kinjal Suarez Anticipated Discharge Date/Time: 12/13/21 11:29 Patient Disposition: Home, Self-Care Activity: other - see discharge instructions Diet: heart healthy Discharge Instructions: [facility] [address] [facility] [address] [place] [id number] DISCHARGE INSTRUCTIONS - POST PCI Activity 1. No driving until 12/15/2021. 2. No lifting, pushing or pulling more than 10 pounds for 1 week. 3. No strenuous exercise or activity (including sexual activity) until you are released to do so. 4. May shower but no tub baths or swimming pool for 1 week. Avoid commercial hot tubs. They are too hot. Medications DO NOT STOP YOUR MEDICATIONS ONLY YOUR INSURANCE COUNSEL CAN STOP THE FOLLOWING MEDICATIONS - PLEASE CALL THE OFFICE WITH QUESTIONS. *Aspirin *Atorvastatin *Lisinopril *Metoprolol *Clopidogrel (Plavix) Important Reminders 1. Keep your stent card in your wallet at all times 2. Follow a heart healthy diet paying extra attention to cholesterol and fats. 3. Stay hydrated. 4. If you have chest pain unrelieved by rest or nitroglycerin (if prescribed) call 911 immediately. *For any other questions please call the office at [phone]. Office hours are 8AM 4:30PM Sunday through Sunday. Patient Instructions: Antibiotic Form, Clopidogrel (By mouth), Chest Pain (DC) Stand Alone Forms: General Discharge Information, Work/School Release IP Follow-up/Referrals: Soniya Crouch, [facility] [Advanced Practice Nurse] - (You have a follow-up appointment on 01/18/2022 at 2:00 p.m.. Please arrive at 1:45 p.m.. Thank you.) Discharge Medications: New atorvastatin 40 mg Tablet 80 mg PO DAILY Qty: 90 RF: 1 amlodipine [Norvasc] 5 mg Tablet 10 mg PO NOON Qty: 30 RF: 1 lisinopril 5 mg Tablet 5 mg PO DAILY Qty: 30 RF: 1 metoprolol tartrate 25 mg Tablet 25 mg PO Q12HR Qty: 60 RF: 1 Continued famotidine 40 mg Tablet 20 mg PO BID PRN (Reason: indegestion) RF: 0 nitroglycerin [Nitrostat] 0.4 mg Tablet, Sublingual 0.4 mg sublingual Q5MIN PRN (Reason: Chest Pain) Qty: 30 RF: 5 aspirin [Children's Aspirin] 81 mg Tablet,Chewable 81 mg PO DAILY@0800 Qty: 30 RF: 5 lisinopril 5 mg Tablet
--- NOTE | 2021-12-13 16:43 | PM.DS ---
DS: Admitting Diagnosis Discharge Date 12/13/21 Admitting Diagnosis Chest Pain NSTEMI DS: Discharge Diagnosis Discharge Diagnosis (1) NSTEMI (non-ST elevated myocardial infarction): Code(s): I21.4 - Non-ST elevation (NSTEMI) myocardial infarction Status: Acute DS: Summary Hospital Course Reason for hospitalization: Chest Pain NSTEMI Hospital Course: 41-year-old female smoker with hypertension, obesity, and coronary artery disease and history of acute inferior wall VA in February 2021 status post drug-eluting stent to the right coronary artery, admitted for chest pain and elevated troponin.Cardiology was consulted, underwent cardiac catheterization which showed Coronary artery disease with severe progression in the proximal LAD with 95% proximal stenosis compared to February of last year,Remaining patency of proximal RCA stent which deployed last February as an emergency during inferior VA, Angiographically successful PCI of proximal LAD lesion. Post cath stay was uneventful. Discharged home on Dual Antiplatelet therapy, advised to follow up with cardiology as outpatient. Time spent discussing smoking cessation with patient: more than 10 minutes Status at Discharge Functional status at discharge: independent ambulation Overall status at discharge: patient is back to baseline Time Spent with Patient Time attestation: Total time spent providing and/or coordinating discharge services: Time spent: Greater than 30 minutes Exam Const: General: no acute distress Limitations: no limitations HENMT: Mouth: Yes moist mucous membranes Eyes: Pupils: Equal, round and reactive pupils present Neck: Neck: supple Resp: Auscultation: clear to auscultation bilaterally Cardio: Rate: regular rate Rhythm: regular rhythm GI: GI Palp: Yes Soft to palpation Auscultation: normal bowel sounds Skin: General skin exam: normal color Psych: Mental Status: mental status grossly normal DS: Data Data Completed and Pending Labs on day of discharge: Labs from last 24 hours 12/13/21 12/13/21 12/12/21 04:32 04:32 18:12 WBC 9.6 RBC 4.53 Hgb 14.1 Hct 42.0 MCV 92.7 MCH 31.1 MCHC 33.6 RDW 13.1 Plt Count 225 MPV 10.1 Immature Gran % (Auto) 0.5 Neut % (Auto) 69.8 Lymph % (Auto) 19.8 [place] % (Auto) 7.8 Eos % (Auto) 1.6 Baso % (Auto) 0.5 Lymph # (Auto) 1.91 [place] # (Auto) 0.8 H Eos # (Auto) 0.2 Baso # (Auto) 0.1 Abs Immat Gran (auto) 0.05 H Absolute Neuts (auto) 6.7 Absolute Nucleated RBC 0.0 Nucleated RBC % 0.0 Sodium 136 L Potassium 3.8 Chloride 108 H Carbon Dioxide 23 Anion Gap 5 L BUN 10 Creatinine 0.80 Estim Creat Clear Calc 113 Estimated GFR > 60 Glucose 92 Calcium 8.5 Triglycerides 339 H Cholesterol 232 H LDL Cholesterol Direct 144 HDL Direct 34 Beta HCG, Quant < 2.39 Discharge Plan Discharge Attending physician on discharge: Kinjal Suarez Consulting providers: Sidney Mathews ; Aan Malloy Discharging Clinician: Kinjal Suarez Anticipated Discharge Date/Time: 12/13/21 11:29 Patient Disposition: Home, Self-Care Activity: other - see discharge instructions Diet: heart healthy Discharge Instructions: [facility] [address] [place] [address] DISCHARGE INSTRUCTIONS - POST PCI Activity 1. No driving until 12/15/2021. 2. No lifting, pushing or pulling more than
== END 2021-12-13 13:09 | disposition home or self-care (01) | DRG 174 ==
LOC: ANHED 10:10 → ANHIMU 11:55
PROVIDERS: Nurse Practitioner; Physician Assistant; Specialist; Admitting Provider Family Medicine; Emergency Provider General Practice; PCP Physician Assistant; Visit Provider Internal Medicine
PROC: 4A023N7 Measurement of Cardiac Sampling and Pressure, Left Heart, Percutaneous Approach (ICD-10-PCS; CPT 93452; principal; 2021-12-12 13:00)
PROC: B211YZZ Fluoroscopy of Multiple Coronary Arteries using Other Contrast (ICD-10-PCS; 2021-12-12 13:00)
DX: I21.4 Non-ST elevation (NSTEMI) myocardial infarction (principal); I10 Essential (primary) hypertension; E66.9 Obesity, unspecified; I25.10 Atherosclerotic heart disease of native coronary artery without angina pectoris; I25.2 Old myocardial infarction; Z95.5 Presence of coronary angioplasty implant and graft; Z86.16 Personal history of COVID-19; F17.210 Nicotine dependence, cigarettes, uncomplicated; Z80.1 Family history of malignant neoplasm of trachea, bronchus and lung; Z82.49 Family history of ischemic heart disease and other diseases of the circulatory system; R77.8 Other specified abnormalities of plasma proteins; K21.9 Gastro-esophageal reflux disease without esophagitis; Z59.9 Problem related to housing and economic circumstances, unspecified; Z91.19 Patient's noncompliance with other medical treatment and regimen; Z79.899 Other long term (current) drug therapy; Z79.82 Long term (current) use of aspirin; Z68.30 Body mass index [BMI] 30.0-30.9, adult
CPT/HCPCS: 36415; 71046; 80048; 80053; 80061; 83690; 83735; 83880; 84100; 84443; 84484; 84702; 85025; 85027; 85380; 85610; 85652; 85730; 86140; 93005; 93306; 93458; 99285; A9270; C1725; C1769; C1874; C1887; C1894; C9600; G0378; G0379; J0360; J0583; J1644; J2250; J3010; J7030; J7040

== ENCOUNTER 2021-12-15 19:31 | Observation (INO) | payer BC, OTHER, SELFPAY ==
[2021-12-15] VITALS (9 sets, daily range): BP systolic 129–174; BP diastolic 73–105; PULSE 53–84; RESP 16–22; TEMP 35.6–37; O2SAT 97–99
--- NOTE | ~2021-12-15 | XR_ITS ---
EXAMINATION: XR chest 2V DATE: 12/15/2021 20:21 INDICATION: Left-sided chest pain and shoulder to the lower ribs TECHNIQUE: PA and lateral views of the chest were obtained. COMPARISON: Chest radiograph dated 12/09/2021 FINDINGS: The lungs remain clear with no focal airspace opacities, pulmonary edema, pleural effusion or pneumot horax. The cardiomediastinal silhouette is normal. Moderate thoracic spondylosis. IMPRESSION: 1. No acute cardiopulmonary disease. Reviewed, dictated and finalized at location A. [facility]TER [facility]
--- NOTE | 2021-12-15 19:33 | ECG_ITS ---
Measurements Intervals [place] Rate: 74 P: 32 CA: 141 QRS: 42 QRSD: 95 T: 47 QT: 378 QTc: 421 Interpretive Statements SINUS RHYTHM NORMAL ECG COMPARED TO ECG 12/13/2021 09:35:46 NO SIGNIFICANT CHANGES Electronically Signed On 12-16-2021 7:11:41 MARBLE FINISHER by Remi Gomes M.D.
[2021-12-15 20:02] LABS: Basophils Absolute Auto 0.1 K/mm3 (0.0-0.1); Basophils Percent Auto 0.7 % (0.2-1.2); Eosinophils Absolute Auto 0.2 K/mm3 (0-0.3); Eosinophils Percent Auto 2.4 % (0-4.4); Hematocrit 43.7 % (37.0-47.0); Hemoglobin 14.7 g/dL (12.0-15.0); Immature Granulocyte Absolute 0.02 K/mm3 (0.00-0.031); Immature Granulocyte Percent A 0.2 % (0-0.5); Lymphocytes Absolute Auto 2.42 K/mm3 (0.9-3.2); Lymphocytes Percent Auto 27.3 % (18.3-44.2); Mean Corpuscular HGB Conc 33.6 g/dl (32-36); Mean Corpuscular Volume 92.2 fl (80-100); Monocytes Absolute Auto 0.7 K/mm3 (0.1-0.6); Monocytes Percent Auto 7.9 % (2.6-8.5); Neutrophils Absolute Auto 5.5 K/mm3 (1.3-6.7); Neutrophils Percent Auto 61.5 % (45.5-73.1); Platelet Count Result 242 k/mm3 (150-375); Red Blood Count 4.74 M/mm3 (4.2-5.4); Red Cell Distribution Width 12.8 % (11.5-14.5); White Blood Count 8.9 K/mm3 (4.5-10.0)
--- NOTE | 2021-12-15 20:06 | ED.CHESTPAIN ---
HPI - Chest Pain General Chief Complaint: Chest Pain <Albertina Mary APRN - Last Filed: 12/15/21 23:36> Stated Complaint: chest discomfort <Albertina Mary APRN - Last Filed: 12/15/21 23:36> Time Seen by Provider: 12/15/21 19:54 <Albertina Mary APRN - Last Filed: 12/15/21 23:36> Source: patient <Albertina Mary APRN - Last Filed: 12/15/21 23:36> Mode of arrival: ambulatory <Albertina Mary APRN - Last Filed: 12/15/21 23:36> Limitations: no limitations <Albertina Mary APRN - Last Filed: 12/15/21 23:36> History of Present Illness HPI narrative: 41 year old female with history significant for non stemi and STEMI. Patient was discharged from this facility on Sunday. She states she was having some breast pressure then and talked to the cardiology CRISIS CLINICIAN. Patient is anxious and concerned that her stent is failing and is afraid she is going to . Patient with intermittent left breast pain radiating up into the anterior shoulder. Pain is intermittent and she says that she has not noted anything that makes it better or worse. She thinks it is anxiety but wants to be sure. Noam has history of anxiety and was on celexa at one time. She states that it stopped working so is no longer on it. <Albertina Mary APRN - Last Filed: 12/15/21 23:36> Related Data Home Medications: Home Medications Medication Instructions Recorded Confirmed famotidine 20 mg PO BID PRN 07/11/20 12/15/21 clopidogrel [Plavix] 75 mg PO DAILY 04/13/21 12/15/21 acetaminophen 1,000 mg PO Q6H PRN 12/15/21 12/15/21 atorvastatin 80 mg PO HS 12/15/21 12/15/21 lisinopril 5 mg PO HS 12/15/21 12/15/21 <Albertina Mary APRN - Last Filed: 12/15/21 23:36> Allergies/Adverse Reactions: Allergies Allergy/AdvReac Type Severity Reaction Status Date / Time erythromycin base Allergy Unknown Verified 12/09/21 09:51 <Albertina Mary APRN - Last Filed: 12/15/21 23:36> Review of Systems Review of Systems: CONSTITUTIONAL: Denies fever, chills, or sweats. EYES: Denies visual changes, redness, or discharge. ENT: Denies rhinorrhea, congestion, sore throat, or otalgia. CARDIOVASCULAR: Intermittent left breast pain radiating to shoulder. Denies palpitations, or edema. RESPIRATORY: Denies cough or dyspnea. GASTROINTESTINAL: Denies abdominal pain, nausea, vomiting, or diarrhea. GENITOURINARY: Denies dysuria or hematuria. SKIN: Denies rash or itching. MUSCULOSKELETAL: Denies back pain, joint pain, or myalgia. NEUROLOGIC: Denies headache, numbness, dizziness, or weakness. PSYCHIATRIC: Denies anxiety or depression. <Albertina Mary APRN - Last Filed: 12/15/21 23:36> [facility] Past Medical History Medical History: Medical History Coronary artery disease (~02/2017) Gastroesophageal reflux disease Hypertension Obesity Polycystic ovarian syndrome STEMI (ST elevation myocardial infarction) (02/2021) Tobacco abuse <Albertina Mary APRN - Last Filed: 12/15/21 23:36> Surgical History Surgical History: Surgical History History of cardiac catheterization (02/21/21) History of coronary artery stent placement (02/21/21) Drug-eluting stent to the right coronary artery per Dr. Gomes. <Albertina Mary APRN - Last Filed: 12/15/21 23:36> Family History Family History: Family History Father Acute myocardial infarction CAD (coronary artery disease) Daughter No problems noted. Mother Lung cancer <Albertina Mary APRN - Last Filed: 12/15/21 23:36> Social History Social History: Social History Social History: Surrogate decision maker: Vonnie Laird, sister. Code status: Full code. Smoking packs per day: 1 Smoking cigarettes per day: 20.0 Years smoked: 26 Smoking pack-years:
[2021-12-15 20:14] LABS: Partial Thromboplastin Time 25.9 SECONDS (22.3-36.8); Prothrombin Time 12.9 Seconds (11.1-14.7)
[2021-12-15 20:15] LABS: Alanine Aminotransferase 12 U/L (4-35); Albumin Level 4.4 g/dL (3.5-5.1); Alkaline Phosphatase 64 U/L (38-126); Anion Gap 9 mmol/L (8-16); Aspartate Amino Transferase 24 U/L (14-36); Bilirubin,Total 0.4 mg/dL (0.2-1.3); Blood Urea Nitrogen 9 mg/dL (7-17); Calcium 8.9 mg/dL (8.4-10.2); Carbon Dioxide 21 mmol/L (22-30); Chloride 108 mmol/L (98-107); Estimated CRCL calculation 125 ml/min; Estimated Glomerular Filt Rate > 60; Glucose 93 mg/dL (65-110); Lipase 82 U/L (23-300); Sodium 138 mmol/L (137-145)
[2021-12-15 20:32] LABS: Troponin I 0.313 ng/mL (0.000-0.034)
[2021-12-15] MEDS: METOPROLOL TARTRATE 50 MG TAB 25 MG PO (21:57)
[2021-12-15] MEDS: ATORVASTATIN 40 MG TABLET 80 MG PO (21:58)
[2021-12-15] MEDS: lisinopriL 5 MG TABLET PO (21:59)
--- NOTE | 2021-12-15 22:34 | ADMGEN ---
This patient, Prem Rao, was admitted to IMU Room 209-01. Patient/family oriented to hospital policies and general routines including ID bracelet, bed and alarms, visiting hours, pain management, procedures, bathroom and other care routines, personal items, smoking policy, room service/diet, and visiting hours. Information on how to activate the Rapid Response Team has been discussed. Patient/Family are encouraged to report perceived risks to care and to ask questions if they do not understand what they are told or what they should do.
[2021-12-15 23:28] LABS: Troponin I 0.405 ng/mL (0.000-0.034)
[2021-12-16 01:32] VITALS: PULSE 53
[2021-12-16 02:20] LABS: Troponin I 0.352 ng/mL (0.000-0.034)
[2021-12-16 04:00] VITALS: BP 112/70; PULSE 53; PULSE 55; PULSE 63; RESP 16; RESP 18; TEMP 36.1; O2SAT 97
--- NOTE | 2021-12-16 04:42 | PM.IMHP ---
H&P: HPI History of Present Illness Date/Time: 12/16/21 04:42 Chief Complaint: Chest pain Narrative: 41-year-old female with past medical history of anxiety, hypertension, hyperlipidemia and known coronary artery disease who presented to the ER with atypical chest pain. The patient states that when she had her 1st heart attack last year her symptoms included dyspepsia and epigastric fullness. Followed by eventual left arm pain substernal chest pain and pain radiating up her neck and left jaw. She had recurrence of chest pain last week and had a non STEMI with significant LAD stenosis and had a stent placed. Her chest pain at that time she was having intermittent central does discomfort that was burning in nature. Her history is complicated by fact that she has significant anxiety as well. She reports that today she has been having intermittent epigastric fullness and left-sided burning chest pain. She reports that she is not having any chest pain currently. She reports that the muscles in the left side or a chest feel like they are tired and fatigued. She has not been having any nausea or diaphoresis with symptoms. She admits that she is hyper aware of her symptoms currently. She stated that the nurse practitioner for the cardiology service told her prior to her discharge that if she was still having pain it could mean that she may be having some stent failure. Since that time she has been excessively concerned about whether not her stent may still be open. She states that she has not smoked since her last hospitalization. Although abstaining from tobacco has also added to her anxiety. She does snore and admits to daytime sleepiness and fatigue. She thought that this was due to her coronary artery disease. She has never had a sleep study. Review of Systems Review of Systems: 12 systems were reviewed with pertinent positives and negatives per HPI. Except as documented in the HPI, all other systems were reviewed and are negative. [facility] Past Medical History Medical History Coronary artery disease (~02/2017) Essential hypertension Gastroesophageal reflux disease Obesity Polycystic ovarian syndrome STEMI (ST elevation myocardial infarction) (02/2021) Tobacco abuse Surgical History Surgical History (Updated 12/16/21 @ 04:47 by Bonnie Hicks DO) History of cardiac catheterization (02/21/21) And 12/12/2021 History of coronary artery stent placement 02/21/2021: Drug-eluting stent to the right coronary artery 12/12/2021 3.5 x 15 mm drug-eluting stent to the LAD due to 95% stenosis proximal LAD Family History Family History Father Acute myocardial infarction CAD (coronary artery disease) Daughter No problems noted. Mother Lung cancer Social History Social History (Updated 12/16/21 @ 21:01 by Bonnie Hicks DO) Social History: Surrogate decision maker: Vonnie Laird, sister. Code status: Full code. Smoking packs per day: 1 Smoking cigarettes per day: 20.0 Years smoked: 26 Smoking pack-years: 26.00 Smoking status: Former smoker Smoking end date: 12/09/21 Alcohol intake: never Substance use: never Spiritual care concerns: No Meds Home Medications and Allergies Home Medications Medication Instructions Recorded Confirmed Type famotidine 20 mg PO BID PRN 07/11/20 12/15/21 History aspirin [Children's Aspirin] 81 mg PO DAILY@0800 #30 tablet 02/23/21 12/15/21 Rx nitroglycerin [Nitrostat] 0.4 mg SUBLINGUAL Q5MIN PRN #30 02/23/21 12/15/21 Rx tablet meclizine 25 mg PO QID PRN #30 tablet 03/29/21 12/15/21 Rx clopidogrel [Plavix] 75 mg PO DAILY 04/13/21 12/15/21 History amlodipine [Norvasc] 10 mg PO NOON #30 tablet 12/13/21 12/15/21 Rx metoprolol tartrate 25 mg PO Q12HR #60 tablet 12/13/21 12/15/21 Rx acetaminophen 1,000 mg PO Q6H PRN 12/15/21 12/15/21 History atorvastatin 80
[2021-12-16 04:55] LABS: Basophils Absolute Auto 0.1 K/mm3 (0.0-0.1); Basophils Percent Auto 0.9 % (0.2-1.2); Eosinophils Absolute Auto 0.3 K/mm3 (0-0.3); Eosinophils Percent Auto 2.8 % (0-4.4); Hematocrit 41.7 % (37.0-47.0); Hemoglobin 13.9 g/dL (12.0-15.0); Immature Granulocyte Absolute 0.03 K/mm3 (0.00-0.031); Immature Granulocyte Percent A 0.3 % (0-0.5); Lymphocytes Percent Auto 24.1 % (18.3-44.2); Mean Corpuscular HGB Conc 33.3 g/dl (32-36); Mean Corpuscular Volume 92.9 fl (80-100); Mean Platelet Volume 10.2 fl (7.4-10.4); Monocytes Absolute Auto 0.8 K/mm3 (0.1-0.6); Monocytes Percent Auto 8.4 % (2.6-8.5); Neutrophils Percent Auto 63.5 % (45.5-73.1); Platelet Count Result 229 k/mm3 (150-375); Red Blood Count 4.49 M/mm3 (4.2-5.4); White Blood Count 9.5 K/mm3 (4.5-10.0)
[2021-12-16 05:11] LABS: Alanine Aminotransferase 12 U/L (4-35); Albumin Level 3.7 g/dL (3.5-5.1); Alkaline Phosphatase 57 U/L (38-126); Anion Gap 8 mmol/L (8-16); Aspartate Amino Transferase 23 U/L (14-36); Bilirubin,Total 0.5 mg/dL (0.2-1.3); Blood Urea Nitrogen 9 mg/dL (7-17); Calcium 8.4 mg/dL (8.4-10.2); Carbon Dioxide 23 mmol/L (22-30); Chloride 108 mmol/L (98-107); Estimated CRCL calculation 125 ml/min; Estimated Glomerular Filt Rate > 60; Glucose 100 mg/dL (65-110); Potassium 3.6 mmol/L (3.4-5.0); Sodium 139 mmol/L (137-145)
[2021-12-16 05:55] LABS: Troponin I 0.365 ng/mL (0.000-0.034)
[2021-12-16 06:00] VITALS: PULSE 54
[2021-12-16 08:00] VITALS: BP 115/55; PULSE 55; PULSE 60; RESP 14; TEMP 36.6; O2SAT 100
[2021-12-16 08:18] VITALS: PULSE 53
[2021-12-16] MEDS: ASPIRIN 81 MG CHEWABLE TABLET PO (08:18)
[2021-12-16] MEDS: CLOPIDOGREL BISULFATE 75 MG TABLET PO (08:18)
[2021-12-16] MEDS: METOPROLOL TARTRATE 25 MG TABLET PO (08:18)
--- NOTE | 2021-12-16 09:23 | PM.CNCAR ---
Assessment and Plan Additional Plan Unfortunate 41-year-old lady with premature coronary artery disease with emergency RCA intervention last year in the setting of acute inferior wall WA. She previous to this had ongoing smoking and noncompliance with medication and developed a very significant progression of disease in the proximal LAD with high-grade stenosis which was treated successfully with another stent device several days ago. She enters the hospital with very anxious symptoms including some chest pain. Fortunately we can be reassured that her LAD stent is fine since she is not experiencing an ST-elevation anterior wall WA. I reassured the patient that she is stable with respect to her coronary disease and that she should stay on her medications and be discharged. Anti anxiolytic therapy would likely be helpful but the patient does not wish to take any anxiety medications. I congratulated her that she has not smoked since her previous admission Remi Gomes MD [facility] History of Present Illness History of Present Illness Consult date/time: 12/16/21 09:23 Consult reason: chest pain Reason For Visit: Elevated Troponin Narrative: This is a very anxious and somewhat unfortunate 41-year-old woman who has coronary artery disease who I am seeing this morning at the request of the hospitalist because of some chest pain with which she was seen in the emergency room last evening and then admitted to the hospital overnight. The patient is well known to me and was found to have coronary disease in February of 2021 when she presented to this hospital with acute inferior wall WA. She underwent successful emergency PCI of the right coronary artery with a good anatomic result and sikh of ANDREWS 3 flow in the vessel. She had a modest size infarction by enzymes. Her left ventricular wall motion did normalize following the event and she has done well. She was at that time mild nonocclusive disease in the LAD. She was admitted to the hospital recently with a recurrences of chest pain that sounded like exertional angina. I recommended a follow-up angiogram which surprisingly demonstrated a new high very high-grade 95% stenosis in the proximal LAD. The lesion was successfully treated with another drug-eluting stent and with a good anatomical result. She does have mild plaquing throughout the LAD distal to this but no flow-limiting lesions. Her right coronary artery looked okay. The patient is extremely anxious about this both in the hospital and as an outpatient. This is understandable since she is quite young to have coronary artery disease like this and also the anxiety problems at baseline. She states that when she left the hospital several days ago she was still having some residual chest pain and when she asked about at someone told her that her stent could be failing. She says that she could stop thinking about this after she got home and became very anxious and came back to the hospital last night. Her 12 lead ECG is a normal tracing. Her troponin levels are slightly elevated at 0.3 but are flat, not rising and falling. Her medical regimen consists of aspirin, clopidogrel, atorvastatin, lisinopril and metoprolol. Review of Systems Constitutional: Constitutional: Reports no additional constitutional complaints Eyes: Eyes: Reports no additional eye complaints ENT: Reports system reviewed and no additional complaints, except as documented Cardiovascular: Cardiovascular: Reports as per HPI Respiratory: Respiratory: Reports no additional respiratory complaints Gastrointestinal: Gastrointestinal: Reports no additional gastrointestinal complaints Musculoskeletal: Musculoskeletal: Reports no additional musculoskeletal complaints Integumentary/Breasts: Skin/Breast: Reports system reviewed and no additional complaints, except as docu Neurologic: Reports system reviewed and no additional complaints, except as documented Psychiatric: Psychiatric:
[2021-12-16 10:00] VITALS: PULSE 56
--- NOTE | 2021-12-16 11:29 | PM.DS ---
DS: Admitting Diagnosis Discharge Date 12/16/2021 Admitting Diagnosis Chest pain DS: Discharge Diagnosis Discharge Diagnosis (1) NSTEMI (non-ST elevated myocardial infarction): Code(s): I21.4 - Non-ST elevation (NSTEMI) myocardial infarction Status: Acute (2) Tobacco abuse: Code(s): Z72.0 - Tobacco use Status: Acute (3) Hypertension: Qualifiers: Hypertension type: unspecified Qualified Code(s): I10 - Essential (primary) hypertension Code(s): I10 - Essential (primary) hypertension Status: Acute (4) Anxiety disorder: Code(s): F41.9 - Anxiety disorder, unspecified Status: Acute DS: Summary Hospital Course Hospital Course: 41 year old female with history significant for ST-elevation SC February 2021 status post stents to RCA. She had another non ST-elevation SC recently and had cardiac catheterization done which showed 95% high-grade stenosis in LAD. Status post drug-eluting stenting done on 12/12/2021. She was discharged on 12/13/2021. She presents back to the ER with having chest pressure and anxiety and a concern that her stents are failing and she is afraid she is going to . She does have history of anxiety and used to be on Celexa some point in the past however it had caused her to have side effects and hence she stopped. She has not tried any other medications since then. She was admitted for evaluation of her chest pain under observation status. Initial EKG showed no new changes. Troponin was mildly elevated which was expected after her recent cardiac catheterization. Serial cardiac enzymes were done which remained flat suggesting against new non ST-elevation SC. she was evaluated by Cardiology and was cleared to be discharged from their standpoint. Discussed about anxiety management during her hospital stay and she defers from getting started on any medications. She does see a therapist on a regular basis with regard to her anxiety disorder which I encouraged her to continue. She is also encouraged to speak to her primary care physician with regard to her what it seems to be a generalized anxiety disorder. Her hemodynamics remained stable throughout the hospital stay. Her LDL is not at goal. I see her atorvastatin has been increased to high intensity statin since last admission. She will need an lipid profile in 3 months. She is also working on her smoking cessation. Status at Discharge Overall status at discharge: patient is progressing back to baseline Time Spent with Patient Time attestation: Total time spent providing and/or coordinating discharge services: 35 minutes Exam Narrative: GENERAL: The patient is well developed, not in acute distress HEENT: Nonicteric sclerae, PERRLA, EOMI. Oropharynx clear. Moist mucous membranes. Conjunctivae appear well perfused. CHEST: Chest wall is nontender. HEART: Regular rate and rhythm without murmur, rubs, or gallops LUNGS: Clear to auscultation bilaterally. no respiratory distress ABDOMEN: Soft, positive bowel sounds, non-tender, no organomegaly. SKIN: No rash, no excessive bruising, petechiae, or purpura. NEUROLOGIC: Cranial nerves II-XII intact, alert and oriented x 3, no gross motor deficits EXTREMITIES: no edema, cyanosis or clubbing DS: Data Data Completed and Pending Labs on day of discharge: Labs from last 24 hours 12/16/21 12/16/21 12/16/21 04:38 04:38 04:36 WBC 9.5 RBC 4.49 Hgb 13.9 Hct 41.7 MCV 92.9 MCH 31.0 MCHC 33.3 RDW 13.0 Plt Count 229 MPV 10.2 Immature Gran % (Auto) 0.3 Neut % (Auto) 63.5 Lymph % (Auto) 24.1 [place] % (Auto) 8.4 Eos % (Auto) 2.8 Baso % (Auto) 0.9 Lymph # (Auto) 2.30 [place] # (Auto) 0.8 H Eos # (Auto) 0.3 Baso # (Auto) 0.1 Abs Immat Gran (auto) 0.03 Absolute Neuts (auto) 6.0 Absolute Nucleated RBC 0.0 Nucleated RBC % 0.0 PT INR APTT Sodium 139 Potassium 3.6 Chloride 108 H Carbo
== END 2021-12-16 11:48 | disposition home or self-care (01) ==
LOC: ANHED 21:30 → ANHIMU 21:33
PROVIDERS: Emergency Medicine; Admitting Provider Internal Medicine; Emergency Provider Nurse Practitioner Family; PCP Physician Assistant; Visit Provider Internal Medicine
DX: I21.4 Non-ST elevation (NSTEMI) myocardial infarction (principal); R77.8 Other specified abnormalities of plasma proteins; I25.10 Atherosclerotic heart disease of native coronary artery without angina pectoris; I25.2 Old myocardial infarction; I10 Essential (primary) hypertension; E78.5 Hyperlipidemia, unspecified; F41.9 Anxiety disorder, unspecified; K21.9 Gastro-esophageal reflux disease without esophagitis; E28.2 Polycystic ovarian syndrome; E66.9 Obesity, unspecified; Z68.37 Body mass index [BMI] 37.0-37.9, adult; Z95.5 Presence of coronary angioplasty implant and graft; F17.210 Nicotine dependence, cigarettes, uncomplicated; Z79.02 Long term (current) use of antithrombotics/antiplatelets; Z79.82 Long term (current) use of aspirin
CPT/HCPCS: 36415; 71046; 80053; 83690; 84484; 85025; 85610; 85730; 93005; 99285; A9270; G0378

== ENCOUNTER 2022-03-21 17:07 | Emergency (ER) | payer BC, SELFPAY ==
--- NOTE | ~2022-03-21 | XR_ITS ---
EXAMINATION: XR chest 2V Exam Date/Time: 03/21/2022 17:30 CDT HISTORY: CP Comparison: 12/15/2021. RESULT: Lines, tubes, and devices: None. Lungs and pleura: Clear. Cardiomediastinal silhouette: Stable cardiomediastinal silhouette. Other: No acute osseous or upper abdominal finding. IMPRESSION: No acute cardiopulmonary process. Reviewed, dictated and finalized at location K.
[2022-03-21 17:16] VITALS: BP 170/101; PULSE 79; RESP 16; TEMP 36.4; O2SAT 100
--- NOTE | 2022-03-21 17:19 | ECG_ITS ---
Measurements Intervals [place] Rate: 83 P: 2 DE: 151 QRS: 0 QRSD: 90 T: -1 QT: 386 QTc: 455 Interpretive Statements SINUS RHYTHM NORMAL ECG COMPARED TO ECG 12/15/2021 19:43:03 NO SIGNIFICANT CHANGES Electronically Signed On 03-22-2022 9:58:12 CDT by Sidney Mathews M.D.
[2022-03-21 17:43] LABS: Basophils Absolute Auto 0.1 K/mm3 (0.0-0.1); Basophils Percent Auto 0.6 % (0.2-1.2); Eosinophils Absolute Auto 0.2 K/mm3 (0-0.3); Eosinophils Percent Auto 2.2 % (0-4.4); Hematocrit 41.1 % (37.0-47.0); Hemoglobin 13.9 g/dL (12.0-15.0); Immature Granulocyte Absolute 0.03 K/mm3 (0.00-0.031); Immature Granulocyte Percent A 0.3 % (0-0.5); Lymphocytes Absolute Auto 2.07 K/mm3 (0.9-3.2); Lymphocytes Percent Auto 23.3 % (18.3-44.2); Mean Corpuscular HGB Conc 33.8 g/dl (32-36); Mean Corpuscular Hemoglobin 29.9 pg (26-34); Mean Corpuscular Volume 88.4 fl (80-100); Mean Platelet Volume 10.1 fl (7.4-10.4); Monocytes Absolute Auto 0.6 K/mm3 (0.1-0.6); Monocytes Percent Auto 7.1 % (2.6-8.5); Neutrophils Absolute Auto 5.9 K/mm3 (1.3-6.7); Neutrophils Percent Auto 66.5 % (45.5-73.1); Platelet Count Result 254 k/mm3 (150-375); Red Blood Count 4.65 M/mm3 (4.2-5.4); Red Cell Distribution Width 12.8 % (11.5-14.5); White Blood Count 8.9 K/mm3 (4.5-10.0)
[2022-03-21 17:56] LABS: Alanine Aminotransferase 16 U/L (6-35); Albumin Level 4.1 g/dL (3.5-5.1); Alkaline Phosphatase 81 U/L (38-126); Anion Gap 10 mmol/L (8-16); Aspartate Amino Transferase 21 U/L (14-36); Bilirubin,Total 0.6 mg/dL (0.2-1.3); Blood Urea Nitrogen 7 mg/dL (7-17); Calcium 8.3 mg/dL (8.4-10.2); Carbon Dioxide 20 mmol/L (22-30); Chloride 109 mmol/L (98-107); Estimated CRCL calculation 129 ml/min; Estimated Glomerular Filt Rate > 60; Glucose 113 mg/dL (65-110); Lipase 98 U/L (23-300); Potassium 3.6 mmol/L (3.4-5.0); Sodium 139 mmol/L (137-145)
[2022-03-21 18:07] LABS: Troponin I < 0.012 ng/mL (0.000-0.034)
[2022-03-21 18:12] LABS: INR 1.1; Partial Thromboplastin Time 26.9 SECONDS (22.3-36.8); Prothrombin Time 13.8 Seconds (11.1-14.7)
--- NOTE | 2022-03-21 18:58 | ED.CHESTPAIN ---
HPI - Chest Pain General Chief Complaint: Chest Pain Stated Complaint: epigastic pain/past mi Time Seen by Provider: 03/21/22 18:39 History of Present Illness HPI narrative: Pt presents with CP for last two days. Pt says it feels like lump in epigastric area which feels similar to prior heart attack. Pt also admits to high anxiety and is not sure if its her anxiety or her heart. Pt says the sensation has been constant for two days but waxes and wanes in severity but has never completely resolved. Pt says that gum sometimes helps. Pt admits to not taking losartan yet because she is worried about the side effects. Related Data Home Medications Medication Instructions Recorded Confirmed famotidine 40 mg tablet 20 mg PO BID PRN indegestion 07/11/20 12/15/21 clopidogrel 75 mg tablet (Plavix) 75 mg PO DAILY 04/13/21 12/15/21 acetaminophen 500 mg tablet 1,000 mg PO Q6H PRN Pain 12/15/21 12/15/21 atorvastatin 40 mg tablet 80 mg PO HS 12/15/21 12/15/21 lisinopril 5 mg tablet 5 mg PO HS 12/15/21 12/15/21 Allergies Allergy/AdvReac Type Severity Reaction Status Date / Time erythromycin base Allergy Unknown Verified 03/21/22 19:07 Review of Systems Review of Systems: All systems reviewed & are unremarkable except as noted in HPI and below PMFSH Past Medical History Medical History Coronary artery disease (~02/2017) Essential hypertension Gastroesophageal reflux disease Obesity Polycystic ovarian syndrome STEMI (ST elevation myocardial infarction) (02/2021) Tobacco abuse Surgical History Surgical History (Updated 12/16/21 @ 04:47 by Bonnie Hicks DO) History of cardiac catheterization (02/21/21) And 12/12/2021 History of coronary artery stent placement 02/21/2021: Drug-eluting stent to the right coronary artery 12/12/2021 3.5 x 15 mm drug-eluting stent to the LAD due to 95% stenosis proximal LAD Family History Family History Father Acute myocardial infarction CAD (coronary artery disease) Daughter No problems noted. Mother Lung cancer Social History Social History (Updated 12/16/21 @ 21:01 by Bonnie Hicks DO) Social History: Surrogate decision maker: Vonnie Laird, sister. Code status: Full code. Smoking packs per day: 1 Smoking cigarettes per day: 20.0 Years smoked: 26 Smoking pack-years: 26.00 Smoking status: Former smoker Smoking end date: 12/09/21 Alcohol intake: never Substance use: never Spiritual care concerns: No Exam Const: General: healthy appearing Nutritional Appearance: well nourished Orientation/consciousness: patient oriented x3 Limitations: no limitations HENMT: Head: normal to inspection Mouth: Yes Normal oral and palatal mucosa present Eyes: Conjunctivae: conjunctivae normal EOM: EOMs intact bilaterally Neck: Neck: normal visual inspection Chest: Chest palpation & inspection: normal inspection of the chest Resp: Effort & Inspection: normal respiratory effort Auscultation: clear to auscultation bilaterally Cardio: Rate: regular rate Rhythm: regular rhythm GI: Auscultation: normal bowel sounds Neuro: General: patient oriented x3, moves all extremities, no meningeal signs and no focal motor deficits Speech: normal speech Extrem: General: normal to inspection and no clubbing, cyanosis or edema Psych: Mental Status: mental status grossly normal Affect: Anxious affect present Attitude: cooperative Course Course Emergency Course: d/w dr daugherty said should be ok to discharge if second trop is normal Vital Signs Vital signs: Vital Signs Temperature 97.5 F L 03/21/22 17:16 Pulse Rate 79 03/21/22 17:16 Respiratory Rate 16 03/21/22 17:16 Blood Pressure 170/101 H 03/21/22 17:16 Pulse Oximetry 100 03/21/22 17:16 Oxygen Delivery Room Air 03/21/22 17:16 Temperature 97.5 F L 03/21/22 17:16 Puls
[2022-03-21 19:06] VITALS: BP 196/108; PULSE 83; RESP 15; O2SAT 97
[2022-03-21] MEDS: LOSARTAN POTASSIUM 25 MG TABLET PO (19:41)
[2022-03-21 19:42] VITALS: BP 191/116; PULSE 85; RESP 21; O2SAT 97
[2022-03-21 20:47] LABS: Troponin I < 0.012 ng/mL (0.000-0.034)
[2022-03-21 21:01] VITALS: BP 162/103; PULSE 84; RESP 16; O2SAT 97
== END 2022-03-21 21:02 | disposition home or self-care (01) ==
PROVIDERS: Emergency Provider Emergency Medicine; PCP Physician Assistant
DX: R07.89 Other chest pain (principal); I25.10 Atherosclerotic heart disease of native coronary artery without angina pectoris; I10 Essential (primary) hypertension; I25.2 Old myocardial infarction; E28.2 Polycystic ovarian syndrome; K21.9 Gastro-esophageal reflux disease without esophagitis; E66.9 Obesity, unspecified; Z68.39 Body mass index [BMI] 39.0-39.9, adult; Z95.5 Presence of coronary angioplasty implant and graft; Z87.891 Personal history of nicotine dependence
CPT/HCPCS: 36415; 71046; 80053; 83690; 84484; 85025; 85610; 85730; 93005; 99284; A9270

== ENCOUNTER 2022-09-14 18:00 | Outpatient (RCR) | payer BC, OTHER, SELFPAY | END 2022-09-14 18:45 | disposition home or self-care (01) | LOC: ANHCPREHAB 18:00 | PROVIDERS: PCP Physician Assistant; Visit Provider Nurse Practitioner | DX: Z95.5 Presence of coronary angioplasty implant and graft (principal) | CPT/HCPCS: 93798 ==

== ENCOUNTER 2022-09-25 10:03 | Emergency (ER) | payer OTHER, SELFPAY ==
--- NOTE | ~2022-09-25 | XR_ITS ---
Clinical Indication: Chest tightness PA and lateral views of the chest: Comparison: 03/21/2022 Findings: The lungs are clear, without evidence of focal consolidation or pleural effusion. Cardiome diastinal silhouette is within normal limits. Bones and soft tissues are unremarkable. Impression: Normal chest. Reviewed, dictated and finalized at location [] HOOKER Impression: Normal chest.
--- NOTE | 2022-09-25 10:04 | ECG_ITS ---
Measurements Intervals [place] Rate: 95 P: 55 NV: 142 QRS: 52 QRSD: 100 T: 66 QT: 352 QTc: 443 Interpretive Statements SINUS RHYTHM POSSIBLE INFERIOR MYOCARDIAL INFARCTION , PROBABLY OLD [30 ms Q WAVE IN II/aVF] ABNORMAL ECG Electronically Signed On 09-25-2022 10:31:11 [employer]UNST[employer] REPAIR[employer] by Sidney Mathews M.D.
[2022-09-25 10:28] VITALS: BP 196/105; PULSE 97; RESP 16; TEMP 36.1; O2SAT 98
[2022-09-25 10:39] LABS: Basophils Percent Auto 0.4 % (0.2-1.2); Eosinophils Absolute Auto 0.1 K/mm3 (0-0.3); Eosinophils Percent Auto 0.9 % (0-4.4); Hematocrit 42.6 % (37.0-47.0); Hemoglobin 14.2 g/dL (12.0-15.0); Immature Granulocyte Absolute 0.03 K/mm3 (0.00-0.031); Immature Granulocyte Percent A 0.4 % (0-0.5); Lymphocytes Absolute Auto 1.51 K/mm3 (0.9-3.2); Lymphocytes Percent Auto 19.7 % (18.3-44.2); Mean Corpuscular HGB Conc 33.3 g/dl (32-36); Mean Corpuscular Hemoglobin 30.5 pg (26-34); Mean Corpuscular Volume 91.4 fl (80-100); Mean Platelet Volume 9.9 fl (7.4-10.4); Monocytes Absolute Auto 0.5 K/mm3 (0.1-0.6); Neutrophils Absolute Auto 5.6 K/mm3 (1.3-6.7); Neutrophils Percent Auto 72.6 % (45.5-73.1); Platelet Count Result 239 k/mm3 (150-375); Red Blood Count 4.66 M/mm3 (4.2-5.4); White Blood Count 7.7 K/mm3 (4.5-10.0)
[2022-09-25 10:41] LABS: Alanine Aminotransferase 16 U/L (6-35); Albumin Level 4.3 g/dL (3.5-5.1); Alkaline Phosphatase 59 U/L (38-126); Anion Gap 8 mmol/L (8-16); Aspartate Amino Transferase 21 U/L (14-36); Bilirubin,Total 0.5 mg/dL (0.2-1.3); Blood Urea Nitrogen 10 mg/dL (7-17); Calcium 8.8 mg/dL (8.4-10.2); Carbon Dioxide 24 mmol/L (22-30); Chloride 103 mmol/L (98-107); Estimated CRCL calculation 114 ml/min; Estimated Glomerular Filt Rate > 60; Glucose 143 mg/dL (65-110); Lipase 72 U/L (23-300); Potassium 3.6 mmol/L (3.4-5.0); Sodium 135 mmol/L (137-145)
[2022-09-25 10:44] LABS: Partial Thromboplastin Time 25.3 SECONDS (22.3-36.8); Prothrombin Time 12.9 Seconds (11.1-14.7)
[2022-09-25 10:52] LABS: Troponin I < 0.012 ng/mL (0.000-0.034)
--- NOTE | 2022-09-25 11:04 | PC.NURSE ---
pt. given results of first troponin per her request. Sitting upright on waiting room bench, skin signs and breathing wnl.
--- NOTE | 2022-09-25 11:05 | PC.NURSE ---
Once informed first troponin negative pt. states she is going to go. Pt. encouraged to remain to be treated; advised of risks including , she stated I understand .
== END 2022-09-25 11:29 | disposition left against medical advice (07) ==
PROVIDERS: Emergency Provider Preventive Medicine Aerospace Medicine; PCP Physician Assistant
DX: R07.89 Other chest pain (principal); R94.31 Abnormal electrocardiogram [ECG] [EKG]
CPT/HCPCS: 36415; 71046; 80053; 83690; 84484; 85025; 85610; 85730; 93005; 99199

== ENCOUNTER 2023-04-11 13:16 | Emergency (ER) | payer OTHER, SELFPAY ==
--- NOTE | ~2023-04-11 | XR_ITS ---
Clinical Indication: Chest pain AP view of the chest: Comparison: 09/25/2022 Findings: The lungs are clear, without evidence of focal consolidation or pleural effusion. Cardiome diastinal silhouette is within normal limits. Bones and soft tissues are unremarkable. Impression: Normal chest. Reviewed, dictated and finalized at location . Impression: Normal chest.
--- NOTE | ~2023-04-11 | XR_ITS ---
CORRECTED REPORT Order corrected from 2V CXR to Portable 1V CXR by This report was recreated on 04/11/2023. Original report was signed Clinical Indication: Chest pain AP view of the chest: Comparison: 09/25/2022 Findings: The lungs are clear, without evidence of focal consolidation or pleural effusion. Cardiomediastinal silhouette is within normal limits. Bones and soft tissues are unremarkable. Impression: Normal chest. Reviewed, dictated and finalized at location [facility]
[2023-04-11 13:15] VITALS: RESP 20
--- NOTE | 2023-04-11 13:28 | ECG_ITS ---
Measurements Intervals [place] Rate: 75 P: 44 MI: 149 QRS: 39 QRSD: 99 T: 59 QT: 387 QTc: 432 Interpretive Statements SINUS RHYTHM CONSIDER INFERIOR INFARCT, AGE INDETERMINATE ABNORMAL ECG COMPARED TO ECG 09/25/2022 10:10:32 NO SIGNIFICANT CHANGES Electronically Signed On 04-11-2023 13:31:12 CDT by Luis Carlos Durham D.O.
[2023-04-11 13:29] VITALS: O2SAT 95
--- NOTE | 2023-04-11 13:34 | PC.NURSE ---
pt reports taking a dramamine at 1231
[2023-04-11 13:40] LABS: Basophils Absolute Auto 0.1 K/mm3 (0.0-0.1); Basophils Percent Auto 0.7 % (0.2-1.2); Eosinophils Absolute Auto 0.1 K/mm3 (0-0.3); Eosinophils Percent Auto 1.3 % (0-4.4); Hematocrit 43.1 % (37.0-47.0); Hemoglobin 14.5 g/dL (12.0-15.0); Immature Granulocyte Absolute 0.03 K/mm3 (0.00-0.031); Immature Granulocyte Percent A 0.3 % (0-0.5); Lymphocytes Percent Auto 22.9 % (18.3-44.2); Mean Corpuscular HGB Conc 33.6 g/dl (32-36); Mean Corpuscular Hemoglobin 29.8 pg (26-34); Mean Corpuscular Volume 88.7 fl (80-100); Mean Platelet Volume 9.5 fl (7.4-10.4); Monocytes Absolute Auto 0.6 K/mm3 (0.1-0.6); Monocytes Percent Auto 6.3 % (2.6-8.5); Neutrophils Percent Auto 68.5 % (45.5-73.1); Platelet Count Result 248 k/mm3 (150-375); Red Blood Count 4.86 M/mm3 (4.2-5.4); Red Cell Distribution Width 13.1 % (11.5-14.5); White Blood Count 8.8 K/mm3 (4.5-10.0)
[2023-04-11 13:57] LABS: INR 0.9; Partial Thromboplastin Time 23.5 SECONDS (22.3-36.8); Prothrombin Time 12.5 Seconds (11.1-14.7)
[2023-04-11] MEDS: LORazepam INJ (*CRX) 2 MG/ML VIAL 1 MG IV PUSH (14:00)
[2023-04-11 14:01] LABS: Troponin I < 0.012 ng/mL (0.000-0.034)
[2023-04-11 14:02] LABS: Albumin Level 4.5 g/dL (3.5-5.1); Alkaline Phosphatase 60 U/L (38-126); Anion Gap 12 mmol/L (8-16); Aspartate Amino Transferase 31 U/L (14-36); Bilirubin,Total 0.5 mg/dL (0.2-1.3); Blood Urea Nitrogen 9 mg/dL (7-17); Calcium 9.4 mg/dL (8.4-10.2); Carbon Dioxide 20 mmol/L (22-30); Chloride 106 mmol/L (98-107); Estimated CRCL calculation 153 ml/min; Estimated Glomerular Filt Rate > 60; Glucose 94 mg/dL (65-110); Lipase 75 U/L (23-300); Potassium 3.8 mmol/L (3.4-5.0); Sodium 138 mmol/L (137-145)
--- NOTE | 2023-04-11 14:05 | ED.CHESTPAIN ---
HPI - Chest Pain General Chief Complaint: Chest Pain Stated Complaint: chest tightness Time Seen by Provider: 04/11/23 13:37 History of Present Illness HPI narrative: This 42-year-old female patient with significant past medical history of coronary artery disease status post VT x2 with 1 in 2014 and 1 in 2018, and placement of 2 drug-eluting stents, hypertension, hyperlipidemia, GERD in severe anxiety presents to the emergency room with complaints of having pneumonia potential chest pain. Patient states that since her 2nd heart attack she has had no with certain degree of anxiety she has had a certain degree of dizziness that became worse yesterday. The patient states she is unsure if her anxiety is causing her to feel a tightness in the left side of her chest or if she is having the same tightness that she felt when she had her myocardial infarcts. her pain is described as a tightness it is left-sided without any radiation, nausea or vomiting or any diaphoresis or dyspnea. Patient states she has not taken her Plavix yet today In states she does not always take it when she does not feel well. Patient is very anxious according that she is anxious about her medications, taking any thing for her anxiety or any other treatment. The patient states that her with dizziness Ms. Are present all the time and not just with a change of position. Related Data Home Medications Medication Instructions Recorded Confirmed famotidine 40 mg tablet 20 mg PO BID PRN indegestion 07/11/20 12/15/21 clopidogrel 75 mg tablet (Plavix) 75 mg PO DAILY 04/13/21 05/30/22 acetaminophen 500 mg tablet 1,000 mg PO Q6H PRN Pain 12/15/21 12/15/21 atorvastatin 40 mg tablet 80 mg PO HS 12/15/21 12/15/21 lisinopril 5 mg tablet 5 mg PO HS 12/15/21 12/15/21 Allergies Allergy/AdvReac Type Severity Reaction Status Date / Time erythromycin base Allergy Unknown Verified 03/21/22 19:07 Review of Systems Review of Systems: See HPI All systems reviewed & are unremarkable except as noted in HPI and below PMFSH Past Medical History Medical History Coronary artery disease (~02/2017) Essential hypertension Gastroesophageal reflux disease Obesity Polycystic ovarian syndrome STEMI (ST elevation myocardial infarction) (02/2021) Tobacco abuse Surgical History Surgical History History of cardiac catheterization (02/21/21) And 12/12/2021 History of coronary artery stent placement 02/21/2021: Drug-eluting stent to the right coronary artery 12/12/2021 3.5 x 15 mm drug-eluting stent to the LAD due to 95% stenosis proximal LAD Family History Family History Father CAD (coronary artery disease) Acute myocardial infarction Hypertension Daughter No problems noted. Mother Lung cancer Cancer Sibling Hypertension Acute myocardial infarction Social History Social History Social History: Surrogate decision maker: Vonnie Laird, sister. Code status: Full code. Smoking packs per day: 1.5 Smoking cigarettes per day: 30.0 Years smoked: 26 Smoking pack-years: 39.00 Smoking status: Former smoker Tobacco type: cigarettes Smoking end date: 12/09/21 Alcohol intake: never Substance use: never Spiritual care concerns: No Exam Const: General: alert and ill appearing ( chronically ill-appearing) Nutritional Appearance: obese Orientation/consciousness: patient oriented x3 Limitations: no limitations HENMT: Head: normal to inspection Mouth: Yes Normal oral and palatal mucosa present Eyes: Conjunctivae: conjunctivae normal Pupils: Equal, round and reactive pupils present EOM: EOMs intact bilaterally Neck: Neck: normal visual inspection and no lymphadenopathy Chest: Chest palpation & inspecti
[2023-04-11 14:07] LABS: Alanine Aminotransferase 31 U/L (6-35)
[2023-04-11 14:47] VITALS: BP 146/84; PULSE 75; RESP 16; O2SAT 97
[2023-04-11 16:54] LABS: Troponin I < 0.012 ng/mL (0.000-0.034)
[2023-04-11 17:30] VITALS: BP 152/100; PULSE 90; RESP 20; O2SAT 98
== END 2023-04-11 17:42 | disposition home or self-care (01) ==
PROVIDERS: Emergency Medicine; Emergency Provider Nurse Practitioner Adult Health; PCP Physician Assistant
DX: F41.9 Anxiety disorder, unspecified (principal); I25.10 Atherosclerotic heart disease of native coronary artery without angina pectoris; I10 Essential (primary) hypertension; I25.2 Old myocardial infarction; E28.2 Polycystic ovarian syndrome; K21.9 Gastro-esophageal reflux disease without esophagitis; E66.9 Obesity, unspecified; Z68.41 Body mass index [BMI] 40.0-44.9, adult; Z95.5 Presence of coronary angioplasty implant and graft; Z87.891 Personal history of nicotine dependence; R94.31 Abnormal electrocardiogram [ECG] [EKG]
CPT/HCPCS: 36415; 71045; 71046; 80053; 83690; 84484; 85025; 85610; 85730; 93005; 96374; 99284; J2060

== ENCOUNTER 2023-08-11 08:57 | Emergency (ER) | payer OTHER, SELFPAY ==
[2023-08-11] VITALS (30 sets, daily range): BP systolic 127–164; BP diastolic 90–105; PULSE 69–91; RESP 9–28; TEMP 36.4; O2SAT 94–98
--- NOTE | ~2023-08-11 | XR_ITS ---
EXAMINATION: XR chest 2V DATE: 08/11/2023 09:34 INDICATION: Chest pain TECHNIQUE: PA and lateral views of the chest are obtained. COMPARISON: 04/11/2023 FINDINGS: The lungs are free of acute opacities. No pleural effusion or pneumothorax. The cardiomedia stinal silhouette is normal. There is mild thoracic spondylosis. IMPRESSION: 1. No acute cardiopulmonary abnormality. Reviewed, dictated and finalized at location F.
--- NOTE | ~2023-08-11 | CT_ITS ---
EXAMINATION: CT abdomen pelvis w con INDICATION: Epigastric and umbilical abdominal pain TECHNIQUE: Computed tomographic images of the abdomen and pelvis were obtained after the administrati on of 100 cc of Omnipaque 350 intravenous contrast. The dose-length product (DLP) was 1516.30 mGy-cm. Automated exposure control and iterative reconstruction technique were employed. COMPARISON: None available FINDINGS: The lung bases are clear. The heart size is normal. There are trace pleural effusions. The liver, spleen, pancreas, gallbladder, and adrenal glands are normal. Cysts of the kidneys measure up to 2 cm on the left. No pathologically enlarged abdominal or pelvic lymph nodes are identified. The a ppendix is normal. No free intraperitoneal gas or evidence of bowel obstruction. There are nabothian cysts of the cervix. There is an umbilical hernia containing fat. There is moderate lumbar spondylosi s at L5-S1. IMPRESSION: 1. No CT correlate for the patient's symptoms. Reviewed, dictated and finalized at location F.
--- NOTE | 2023-08-11 08:59 | ECG_ITS ---
Measurements Intervals [place] Rate: 99 P: 53 OR: 141 QRS: 65 QRSD: 88 T: 69 QT: 345 QTc: 443 Interpretive Statements SINUS RHYTHM POSSIBLE LEFT ATRIAL ENLARGEMENT MINIMAL Q WAVES- INFERIOR LEADS BORDERLINE ECG COMPARED TO ECG 04/11/2023 13:21:52 NO SIGNIFICANT CHANGES Electronically Signed On 08-11-2023 9:31:40 CDT by Luis Carlos Durham D.O.
[2023-08-11 09:31] LABS: Basophils Absolute Auto 0.1 K/mm3 (0.0-0.1); Basophils Percent Auto 0.6 % (0.2-1.2); Eosinophils Absolute Auto 0.1 K/mm3 (0-0.3); Eosinophils Percent Auto 1.4 % (0-4.4); Hematocrit 41.8 % (37.0-47.0); Hemoglobin 13.9 g/dL (12.0-15.0); Immature Granulocyte Absolute 0.02 K/mm3 (0.00-0.031); Immature Granulocyte Percent A 0.2 % (0-0.5); Lymphocytes Absolute Auto 1.84 K/mm3 (0.9-3.2); Lymphocytes Percent Auto 20.7 % (18.3-44.2); Mean Corpuscular HGB Conc 33.3 g/dl (32-36); Mean Corpuscular Hemoglobin 30.2 pg (26-34); Mean Corpuscular Volume 90.7 fl (80-100); Mean Platelet Volume 9.9 fl (7.4-10.4); Monocytes Absolute Auto 0.6 K/mm3 (0.1-0.6); Monocytes Percent Auto 7.2 % (2.6-8.5); Neutrophils Absolute Auto 6.2 K/mm3 (1.3-6.7); Neutrophils Percent Auto 69.9 % (45.5-73.1); Platelet Count Result 222 k/mm3 (150-375); Red Blood Count 4.61 M/mm3 (4.2-5.4); Red Cell Distribution Width 13.1 % (11.5-14.5); White Blood Count 8.9 K/mm3 (4.5-10.0)
[2023-08-11] MEDS: ASPIRIN 81 MG CHEWABLE TABLET 324 MG PO (09:37)
[2023-08-11 09:40] LABS: INR 0.9; Prothrombin Time 12.9 Seconds (11.1-14.7)
[2023-08-11 09:42] LABS: Partial Thromboplastin Time 24.6 SECONDS (22.3-36.8)
[2023-08-11 09:44] LABS: Alanine Aminotransferase 16 U/L (6-35); Albumin Level 4.2 g/dL (3.5-5.1); Alkaline Phosphatase 59 U/L (38-126); Anion Gap 10 mmol/L (8-16); Aspartate Amino Transferase 20 U/L (14-36); Bilirubin,Total 0.7 mg/dL (0.2-1.3); Blood Urea Nitrogen 8 mg/dL (7-17); Carbon Dioxide 20 mmol/L (22-30); Chloride 106 mmol/L (98-107); Estimated CRCL calculation 112 ml/min; Estimated Glomerular Filt Rate > 60; Glucose 114 mg/dL (65-110); Lipase 81 U/L (23-300); Sodium 136 mmol/L (137-145)
[2023-08-11 09:56] LABS: Troponin I < 0.012 ng/mL (0.000-0.034)
--- NOTE | 2023-08-11 10:08 | ED.CHESTPAIN ---
HPI - Chest Pain General Chief Complaint: Chest Pain Stated Complaint: chest pain Time Seen by Provider: 08/11/23 09:20 Source: patient Mode of arrival: ambulatory Limitations: no limitations History of Present Illness HPI narrative: Patient is a 42 y/o female, with PMH of severe anxiety, CAD s/p 2 previous MIs (2017, 2020) with coronary stenting, who presents to the ED with c/o CP. Patient reports having a pressure in her epigastric region/lower chest for the last 4 days. She states it felt like indigestion, which felt similar to her first [place]. The pressure has been constant with intermittent episodes of worsening. This morning, the pain became much more sharp, which prompted patient's presentation. Patient has not tried anything for pain. She does report occasional shortness of breath with exertion, nausea. Denies vomiting, diarrhea, constipation, fevers, recent cough or cold symptoms, lower extremity pain or swelling. Engineering Recruiter is Dr. Gomes. Patient last saw him 3 months ago at which time everything was normal. Patient notes she has not been taking her Plavix for the last 2 months due to her anxiety. Related Data Home Medications Medication Instructions Recorded Confirmed famotidine 40 mg tablet 20 mg PO BID PRN indegestion 07/11/20 12/15/21 clopidogrel 75 mg tablet (Plavix) 75 mg PO DAILY 04/13/21 05/30/22 acetaminophen 500 mg tablet 1,000 mg PO Q6H PRN Pain 12/15/21 12/15/21 atorvastatin 40 mg tablet 80 mg PO HS 12/15/21 12/15/21 lisinopril 5 mg tablet 5 mg PO HS 12/15/21 12/15/21 Allergies Allergy/AdvReac Type Severity Reaction Status Date / Time erythromycin base Allergy Unknown Verified 08/11/23 09:19 Review of Systems Review of Systems: CONSTITUTIONAL: Denies fever, chills, or sweats. ENT: Denies rhinorrhea, congestion, sore throat. CARDIOVASCULAR: See HPI. RESPIRATORY: See HPI. GASTROINTESTINAL: See HPI. GENITOURINARY: Denies dysuria or hematuria. SKIN: Denies rash or itching. MUSCULOSKELETAL: Denies back pain, joint pain, or myalgia. PSYCHIATRIC: See HPI. All systems reviewed & are unremarkable except as noted in HPI and below PMFSH Past Medical History Medical History Coronary artery disease (~02/2017) Essential hypertension Gastroesophageal reflux disease Obesity Polycystic ovarian syndrome STEMI (ST elevation myocardial infarction) (02/2021) Tobacco abuse Surgical History Surgical History History of cardiac catheterization (02/21/21) And 12/12/2021 History of coronary artery stent placement 02/21/2021: Drug-eluting stent to the right coronary artery 12/12/2021 3.5 x 15 mm drug-eluting stent to the LAD due to 95% stenosis proximal LAD Family History Family History Father CAD (coronary artery disease) Acute myocardial infarction Hypertension Daughter No problems noted. Mother Lung cancer Cancer Sibling Hypertension Acute myocardial infarction Social History Social History Social History: Surrogate decision maker: Vonnie Laird, sister. Code status: Full code. Smoking packs per day: 1.5 Smoking cigarettes per day: 30.0 Years smoked: 26 Smoking pack-years: 39.00 Smoking status: Former smoker Tobacco type: cigarettes Smoking end date: 12/09/21 Alcohol intake: never Substance use: never Spiritual care concerns: No Exam Narrative: GENERAL: Well appearing, obese with BMI of 38.9, non-toxic, in no acute distress. HEAD: Normocephalic, atraumatic. NECK: Supple. No adenopathy, no masses. RESPIRATORY: Airway patent, respirations nonlabored. Clear to auscultation bilaterally, no rales, rhonchi, wheezing. No focal lung sounds. CARDIOVASCULAR: Regular rate and rhythm without murmurs, rubs, or gallops.
[2023-08-11] MEDS: BELLADONNA ALK/PHENOB ELIX 10 ML, MAG HYDROX/ALUMINUM HYD/SIMETH 30 ML, LIDOCAINE HCL 2... PO (10:45)
[2023-08-11 12:11] LABS: Troponin I < 0.012 ng/mL (0.000-0.034)
[2023-08-11 15:04] LABS: Troponin I < 0.012 ng/mL (0.000-0.034)
== END 2023-08-11 15:25 | disposition home or self-care (01) ==
PROVIDERS: Emergency Medicine; Emergency Provider Physician Assistant; PCP Physician Assistant
DX: R07.89 Other chest pain (principal); R10.13 Epigastric pain; K21.9 Gastro-esophageal reflux disease without esophagitis; F41.9 Anxiety disorder, unspecified; I25.10 Atherosclerotic heart disease of native coronary artery without angina pectoris; I25.2 Old myocardial infarction; I10 Essential (primary) hypertension; E28.2 Polycystic ovarian syndrome; E66.9 Obesity, unspecified; Z68.38 Body mass index [BMI] 38.0-38.9, adult; Z95.5 Presence of coronary angioplasty implant and graft; Z87.891 Personal history of nicotine dependence; R94.31 Abnormal electrocardiogram [ECG] [EKG]
CPT/HCPCS: 36415; 71046; 74177; 80053; 83690; 84484; 85025; 85610; 85730; 93005; 99284; A9270; Q9967

== ENCOUNTER 2024-03-04 18:25 | Emergency (ER) | payer OTHER, MEDICAID, SELFPAY ==
--- NOTE | ~2024-03-04 | XR_ITS ---
EXAMINATION: XR chest 2V Exam Date/Time: 03/04/2024 18:45 CDT HISTORY: chest pain THAT RADIATES ACROSS ANTERIOR ABDOMEN Comparison: 08/11/2023. RESULT: Lines, tubes, and devices: None. Lungs and pleura: Clear. Cardiomediastinal silhouette: Stable. Other: No acute osseous or upper abdominal finding. IMPRESSION: No acute cardiopulmonary process. Reviewed, dictated and finalized at location K.
--- NOTE | 2024-03-04 18:25 | ECG_ITS ---
SEE SCANNED COPY FOR CONFIRMED REPORT MTDD
[2024-03-04 18:41] VITALS: BP 189/101; PULSE 91; RESP 16; TEMP 37.1; O2SAT 100
[2024-03-04 18:48] LABS: Basophils Percent Auto 0.3 % (0.2-1.2); Eosinophils Absolute Auto 0.1 K/mm3 (0-0.3); Eosinophils Percent Auto 1.3 % (0-4.4); Hematocrit 42.8 % (37.0-47.0); Hemoglobin 14.2 g/dL (12.0-15.0); Immature Granulocyte Absolute 0.02 K/mm3 (0.00-0.031); Immature Granulocyte Percent A 0.2 % (0-0.5); Lymphocytes Absolute Auto 2.17 K/mm3 (0.9-3.2); Lymphocytes Percent Auto 24.7 % (18.3-44.2); Mean Corpuscular HGB Conc 33.2 g/dl (32-36); Mean Corpuscular Hemoglobin 29.8 pg (26-34); Mean Corpuscular Volume 89.7 fl (80-100); Mean Platelet Volume 9.8 fl (7.4-10.4); Monocytes Absolute Auto 0.8 K/mm3 (0.1-0.6); Monocytes Percent Auto 8.5 % (2.6-8.5); Neutrophils Absolute Auto 5.7 K/mm3 (1.3-6.7); Platelet Count Result 238 k/mm3 (150-375); Red Blood Count 4.77 M/mm3 (4.2-5.4); Red Cell Distribution Width 13.2 % (11.5-14.5); White Blood Count 8.8 K/mm3 (4.5-10.0)
[2024-03-04 18:59] LABS: Alanine Aminotransferase 12 U/L (6-35); Albumin Level 4.7 g/dL (3.5-5.1); Alkaline Phosphatase 58 U/L (38-126); Anion Gap 10 mmol/L (4-12); Aspartate Amino Transferase 21 U/L (14-36); Bilirubin,Total 0.6 mg/dL (0.2-1.3); Blood Urea Nitrogen 9 mg/dL (7-17); Calcium 9.3 mg/dL (8.4-10.2); Carbon Dioxide 20 mmol/L (22-30); Chloride 108 mmol/L (98-107); Estimated CRCL calculation 126 ml/min; Estimated Glomerular Filt Rate > 60; Glucose 108 mg/dL (65-110); Lipase 97 U/L (23-300); Potassium 3.7 mmol/L (3.4-5.0); Sodium 138 mmol/L (137-145)
[2024-03-04 19:08] LABS: INR 0.9; Partial Thromboplastin Time 24.7 Seconds (22.3-36.8); Prothrombin Time 12.8 Seconds (11.1-14.7)
[2024-03-04 19:11] LABS: Troponin I < 0.012 ng/mL (0.000-0.034)
--- NOTE | 2024-03-04 21:29 | PC.NURSE ---
patient left without being seen
== END 2024-03-04 21:29 | disposition left against medical advice (07) ==
PROVIDERS: Emergency Provider Emergency Medicine; PCP Physician Assistant
DX: R07.89 Other chest pain (principal)
CPT/HCPCS: 36415; 71046; 80053; 83690; 84484; 85025; 85610; 85730; 93005; 99199

== ENCOUNTER 2024-03-18 09:55 | Emergency (ER) | payer OTHER, MEDICAID, SELFPAY ==
[2024-03-18 10:00] VITALS: BP 201/119; PULSE 90; RESP 16; TEMP 36.5; O2SAT 99
--- NOTE | 2024-03-18 10:28 | ED.DENTAL ---
HPI - Dental/Oral General Chief complaint: Dental/Oral Stated complaint: oral abscess Time Seen by Provider: 03/18/24 10:14 History of Present Illness HPI Narrative: Pt presents with right upper molar pain since yesterday. Pt says she has hole in tooth so it gets infected sometimes. Pt has no dental insurance so has not been able to get it pulled. Pt denies fever. Related Data Home Medications Medication Instructions Recorded Confirmed famotidine 40 mg tablet 20 mg PO BID PRN indegestion 07/11/20 12/15/21 clopidogrel 75 mg tablet (Plavix) 75 mg PO DAILY 04/13/21 05/30/22 acetaminophen 500 mg tablet 1,000 mg PO Q6H PRN Pain 12/15/21 12/15/21 atorvastatin 40 mg tablet 80 mg PO HS 12/15/21 12/15/21 lisinopril 5 mg tablet 5 mg PO HS 12/15/21 12/15/21 Allergies Allergy/AdvReac Type Severity Reaction Status Date / Time erythromycin base Allergy Unknown Verified 03/18/24 10:10 Review of Systems Review of Systems: All systems reviewed & are unremarkable except as noted in HPI and below PMFSH Past Medical History Medical History Coronary artery disease (~02/2017) Essential hypertension Gastroesophageal reflux disease Obesity Polycystic ovarian syndrome STEMI (ST elevation myocardial infarction) (02/2021) Tobacco abuse Surgical History Surgical History History of cardiac catheterization (02/21/21) And 12/12/2021 History of coronary artery stent placement 02/21/2021: Drug-eluting stent to the right coronary artery 12/12/2021 3.5 x 15 mm drug-eluting stent to the LAD due to 95% stenosis proximal LAD Family History Family History Father CAD (coronary artery disease) Acute myocardial infarction Hypertension Daughter No problems noted. Mother Lung cancer Cancer Sibling Hypertension Acute myocardial infarction Social History Social History Social History: Surrogate decision maker: Vonnie Laird, sister. Code status: Full code. Smoking packs per day: 1.5 Smoking cigarettes per day: 30.0 Years smoked: 26 Smoking pack-years: 39.00 Smoking status: Former smoker Tobacco type: cigarettes Smoking end date: 12/09/21 Alcohol intake: never Substance use: never Spiritual care concerns: No Exam Const: General: healthy appearing and no acute distress Nutritional Appearance: well nourished Orientation/consciousness: patient oriented x3 HENMT: Teeth and gingiva: abnormal tooth and associated gingiva (dental carries no obvious abscess minimal selling right face.) Eyes: EOM: EOMs intact bilaterally Neck: Neck: normal visual inspection Resp: Effort & Inspection: normal respiratory effort Auscultation: clear to auscultation bilaterally Cardio: Rate: regular rate Rhythm: regular rhythm GI: Auscultation: normal bowel sounds Skin: General skin exam: normal color Rashes: no rashes Wounds: no wounds Neuro: General: patient oriented x3, moves all extremities and no focal motor deficits Speech: normal speech Extrem: General: normal to inspection Psych: Mental Status: mental status grossly normal Attitude: cooperative Course Vital Signs Vital signs: Vital Signs Temperature 97.7 F 03/18/24 10:00 Pulse Rate 90 03/18/24 10:00 Respiratory Rate 16 03/18/24 10:00 Blood Pressure 201/119 H 03/18/24 10:00 Pulse Oximetry 99 03/18/24 10:00 Oxygen Delivery Room Air 03/18/24 10:00 Temperature 97.7 F 03/18/24 10:00 Pulse Rate 90 03/18/24 10:00 Respiratory Rate 16 03/18/24 10:00 Blood Pressure 201/119 H 03/18/24 10:00 Pulse Oximetry 99 03/18/24 10:00 Oxygen Delivery Room Air 03/18/24 10:00 MDM - Dental/Oral MDM Narrative Medical decision making narrative: pt has dental carries without ob
== END 2024-03-18 10:55 | disposition home or self-care (01) ==
PROVIDERS: Emergency Provider Emergency Medicine; PCP Physician Assistant
DX: K02.9 Dental caries, unspecified (principal); I25.10 Atherosclerotic heart disease of native coronary artery without angina pectoris; I10 Essential (primary) hypertension; K21.9 Gastro-esophageal reflux disease without esophagitis; E66.9 Obesity, unspecified; Z68.39 Body mass index [BMI] 39.0-39.9, adult; Z87.891 Personal history of nicotine dependence
CPT/HCPCS: 99283

== ENCOUNTER 2024-04-07 11:37 | Emergency (ER) | payer OTHER, MEDICAID, SELFPAY ==
[2024-04-07 11:44] VITALS: PULSE 84; RESP 14; TEMP 36.5; O2SAT 100
== END 2024-04-07 13:22 | disposition left against medical advice (07) ==
LOC: ANHED 13:01
PROVIDERS: PCP Physician Assistant
DX: K04.7 Periapical abscess without sinus (principal)
CPT/HCPCS: 99199

== ENCOUNTER 2024-04-15 06:30 | Emergency (ER) | payer OTHER, MEDICAID, SELFPAY ==
[2024-04-15 06:38] VITALS: BP 201/111; PULSE 110; RESP 28; TEMP 36.6; O2SAT 100
--- NOTE | 2024-04-15 07:17 | ED.DENTAL ---
HPI - Dental/Oral General Chief complaint: Dental/Oral Stated complaint: tooth abscess Time Seen by Provider: 04/15/24 07:00 History of Present Illness HPI Narrative: This is a 43-year-old female, with history of coronary artery disease and anxiety, presents to the emergency department complaining of right-sided tooth pain for the past month, worse the past few days. The patient states she previously took penicillin with initial improvement the other symptoms recurred. She states she currently does not have dental insurance and is unable to afford a tooth pulling. Related Data Home Medications Medication Instructions Recorded Confirmed famotidine 40 mg tablet 20 mg PO BID PRN indegestion 07/11/20 12/15/21 clopidogrel 75 mg tablet (Plavix) 75 mg PO DAILY 04/13/21 05/30/22 acetaminophen 500 mg tablet 1,000 mg PO Q6H PRN Pain 12/15/21 12/15/21 atorvastatin 40 mg tablet 80 mg PO HS 12/15/21 12/15/21 lisinopril 5 mg tablet 5 mg PO HS 12/15/21 12/15/21 Allergies Allergy/AdvReac Type Severity Reaction Status Date / Time erythromycin base Allergy Unknown Verified 04/15/24 06:45 Review of Systems Review of Systems: Last menstrual period 1 month ago All systems reviewed & are unremarkable except as noted in HPI and below PMFSH Past Medical History Medical History Coronary artery disease (~02/2017) Essential hypertension Gastroesophageal reflux disease Obesity Polycystic ovarian syndrome STEMI (ST elevation myocardial infarction) (02/2021) Tobacco abuse Surgical History Surgical History History of cardiac catheterization (02/21/21) And 12/12/2021 History of coronary artery stent placement 02/21/2021: Drug-eluting stent to the right coronary artery 12/12/2021 3.5 x 15 mm drug-eluting stent to the LAD due to 95% stenosis proximal LAD Family History Family History Father CAD (coronary artery disease) Acute myocardial infarction Hypertension Daughter No problems noted. Mother Lung cancer Cancer Sibling Hypertension Acute myocardial infarction Social History Social History Social History: Surrogate decision maker: Vonnie Laird, sister. Code status: Full code. Smoking packs per day: 1.5 Smoking cigarettes per day: 30.0 Years smoked: 26 Smoking pack-years: 39.00 Smoking status: Former smoker Tobacco type: cigarettes Smoking end date: 12/09/21 Alcohol intake: never Substance use: never Spiritual care concerns: No Exam Narrative: GENERAL: Well-developed, well-nourished, and in no acute distress. HEAD: Normocephalic, atraumatic. EYES: PERRLA and EOMI. ENT: Erythema, swelling and tenderness noted at the base of tooth 2. Nares clear, no rhinorrhea or epistaxis. Mucous membranes moist. Oropharynx without tonsillar hypertrophy exudate or other lesions. NECK: Supple. No adenopathy or masses. No carotid bruits or JVD CHEST: Clear to auscultation. No respiratory distress. No wheezes rales or rhonchi HEART: Regular rate and rhythm. No murmur heard. Normal peripheral pulses. ABDOMEN: Soft, nontender, nondistended, normal active bowel sounds. NEURO: Alert and oriented x3. No focal deficit. Moving all 4 limbs spontaneously PSYCH: Normal mood and affect. Course Course Emergency Course: 07:15 - The patient's exam is consistent with dental abscess. She was offered pain medications the politely declined I see no me for antibiotics. She was given a list of local low-cost dentists. Will discharge. Discussed return and emergency precautions including signs/symptoms of airway compromise and deep space neck infection. The patient voiced understanding and agreement with the plan. All questions answered to her satisfaction. Vital Signs Vital signs: Vit
== END 2024-04-15 07:39 | disposition home or self-care (01) ==
PROVIDERS: Emergency Provider Preventive Medicine Aerospace Medicine; PCP Physician Assistant
DX: K04.7 Periapical abscess without sinus (principal); I25.10 Atherosclerotic heart disease of native coronary artery without angina pectoris; I25.2 Old myocardial infarction; I10 Essential (primary) hypertension; E28.2 Polycystic ovarian syndrome; E66.9 Obesity, unspecified; Z68.39 Body mass index [BMI] 39.0-39.9, adult; K21.9 Gastro-esophageal reflux disease without esophagitis; F41.9 Anxiety disorder, unspecified; Z95.5 Presence of coronary angioplasty implant and graft; Z87.891 Personal history of nicotine dependence; Z79.02 Long term (current) use of antithrombotics/antiplatelets; Z79.899 Other long term (current) drug therapy; Z79.82 Long term (current) use of aspirin
CPT/HCPCS: 99283

== ENCOUNTER 2024-05-16 12:25 | Emergency (ER) | payer OTHER, MEDICAID, SELFPAY ==
[2024-05-16] VITALS (14 sets, daily range): BP systolic 160–200; BP diastolic 89–112; PULSE 66–95; RESP 16–27; TEMP 36.6; O2SAT 97–100
--- NOTE | ~2024-05-16 | XR_ITS ---
Portable chest x-ray Comparison: 03/04/2024 Clinical History: Chest pain Findings: Lungs are clear, without focal consolidation or pleural effusion. Cardiomediastinal silho uette is stable. Bones and soft tissues are unremarkable. Impression: Normal chest. Reviewed, dictated and finalized at [facility]. Impression: Normal chest.
--- NOTE | 2024-05-16 12:55 | ED.ANXIETY ---
HPI - Anxiety General Chief Complaint: Anxiety Stated Complaint: trouble swallowing, anxiety Time Seen by Provider: 05/16/24 12:35 Source: patient Mode of arrival: ambulatory Limitations: no limitations History of Present Illness HPI narrative: this is a 43-year-old female who presents to the ED for chief complaint of dysphagia. Reports that she had a saltine cracker 4 days ago that seemed like it got stuck and she has had this sensation ever since. States that she is able to use small amounts of foods and drink fluids. She is expressing a lot of anxiety over this issue and states that she gets panic attacks a lot. States that she has not been seen by any of her doctors lately due to anxiety. States that she has had heart attack in the past and a lot of her symptoms seem to exacerbate when she starts thinking that could be another heart attack. States that she has as needed Xanax for panic attacks but does not ever take these because the anxiety medications give her increased anxiety. secondary complaint of asymmetric swelling to the left side of the abdomen. She feels that the left side sticks out more than the right side. Denies fevers, chills, abdominal pain , nausea, vomiting, trismus, drooling, flank pain, urinary symptoms. Related Data Home Medications Medication Instructions Recorded Confirmed famotidine 40 mg tablet 20 mg PO BID PRN indegestion 07/11/20 12/15/21 clopidogrel 75 mg tablet (Plavix) 75 mg PO DAILY 04/13/21 05/30/22 acetaminophen 500 mg tablet 1,000 mg PO Q6H PRN Pain 12/15/21 12/15/21 atorvastatin 40 mg tablet 80 mg PO HS 12/15/21 12/15/21 lisinopril 5 mg tablet 5 mg PO HS 12/15/21 12/15/21 Allergies Allergy/AdvReac Type Severity Reaction Status Date / Time erythromycin base Allergy Unknown Verified 04/15/24 06:45 Review of Systems Review of Systems: All systems as dictated in HPI [facility] Past Medical History Medical History Coronary artery disease (~02/2017) Essential hypertension Gastroesophageal reflux disease Obesity Polycystic ovarian syndrome STEMI (ST elevation myocardial infarction) (02/2021) Tobacco abuse Surgical History Surgical History History of cardiac catheterization (02/21/21) And 12/12/2021 History of coronary artery stent placement 02/21/2021: Drug-eluting stent to the right coronary artery 12/12/2021 3.5 x 15 mm drug-eluting stent to the LAD due to 95% stenosis proximal LAD Family History Family History Father CAD (coronary artery disease) Acute myocardial infarction Hypertension Daughter No problems noted. Mother Lung cancer Cancer Sibling Hypertension Acute myocardial infarction Social History Social History Social History: Surrogate decision maker: Vonnie Laird, sister. Code status: Full code. Smoking packs per day: 1.5 Smoking cigarettes per day: 30.0 Years smoked: 26 Smoking pack-years: 39.00 Smoking status: Former smoker Tobacco type: cigarettes Smoking end date: 12/09/21 Alcohol intake: never Substance use: never Spiritual care concerns: No Exam Narrative: GENERAL: Anxious appearing. no diaphoresis HEAD: Normocephalic, atraumatic. EYES: PERRLA and EOMI. ENT: Nares clear, no rhinorrhea or epistaxis. Mucous membranes moist. Oropharynx without tonsillar hypertrophy exudate or other lesions. NECK: Supple. No adenopathy or masses. CHEST: No respiratory distress. Clear to auscultation. No wheezes rales or rhonchi HEART: Regular rate and rhythm. No murmur heard. Normal peripheral pulses. ABDOMEN: Soft, nontender, nondistended, normal active bowel sounds. MSK: Normal range of motion. No edema. SKIN: Warm, dry, no rash. NEURO: Alert and oriented x4. No focal deficits.
--- NOTE | 2024-05-16 12:57 | ECG_ITS ---
Test Date: 2024-05-16 13:10:31 Measurements Intervals [place] Rate: 77 P: 46 MA: 153 QRS: 47 QRSD: 96 T: 46 QT: 390 QTc: 442 Interpretive Statements SINUS RHYTHM SMALL, NONDIAGNOSTIC INFERIOR Q-WAVES OTHERWISE NORMAL ECG No previous ECG available for comparison Electronically Signed On 05-16-2024 15:06:43 CDT by Remi Gomes M.D.
[2024-05-16 13:37] LABS: Basophils Percent Auto 0.5 % (0.2-1.2); Eosinophils Absolute Auto 0.1 K/mm3 (0-0.3); Eosinophils Percent Auto 0.8 % (0-4.4); Hematocrit 41.5 % (37.0-47.0); Hemoglobin 14.2 g/dL (12.0-15.0); Immature Granulocyte Absolute 0.03 K/mm3 (0.00-0.031); Immature Granulocyte Percent A 0.4 % (0-0.5); Immature Platelet Fraction Pct 3.3 % (0.9-11.2); Lymphocytes Absolute Auto 1.75 K/mm3 (0.9-3.2); Lymphocytes Percent Auto 23.8 % (18.3-44.2); Mean Corpuscular HGB Conc 34.2 g/dl (32-36); Mean Corpuscular Volume 87.7 fl (80-100); Mean Platelet Volume 10.1 fl (7.4-10.4); Monocytes Absolute Auto 0.5 K/mm3 (0.1-0.6); Monocytes Percent Auto 6.8 % (2.6-8.5); Neutrophils Percent Auto 67.7 % (45.5-73.1); Platelet Count Result 230 k/mm3 (150-375); Red Blood Count 4.73 M/mm3 (4.2-5.4); Red Cell Distribution Width 12.6 % (11.5-14.5); White Blood Count 7.4 K/mm3 (4.5-10.0)
[2024-05-16 13:41] LABS: Alanine Aminotransferase 16 U/L (6-35); Albumin Level 4.5 g/dL (3.5-5.1); Alkaline Phosphatase 58 U/L (38-126); Anion Gap 13 mmol/L (4-12); Aspartate Amino Transferase 29 U/L (14-36); Bilirubin,Total 0.9 mg/dL (0.2-1.3); Blood Urea Nitrogen 11 mg/dL (7-17); Calcium 9.5 mg/dL (8.4-10.2); Carbon Dioxide 19 mmol/L (22-30); Chloride 106 mmol/L (98-107); Estimated CRCL calculation 126 ml/min; Estimated Glomerular Filt Rate > 60; Glucose 92 mg/dL (65-110); Potassium 3.9 mmol/L (3.4-5.0); Sodium 138 mmol/L (137-145)
--- NOTE | 2024-05-16 13:50 | PC.NURSE ---
pt stating she does not want the Ativan unless someone can sit with her for awhile after she gets it. educated pt that she is on the eyeglass lens cutter and we can see all of her vital signs at the nurses station. also reassured pt that she can use her call light if she needs us. pt refusing Ativan at this time.
[2024-05-16 13:52] LABS: Troponin I < 0.012 ng/mL (0.000-0.034)
== END 2024-05-16 14:52 | disposition home or self-care (01) ==
PROVIDERS: Emergency Provider Physician Assistant; PCP Physician Assistant
DX: F41.9 Anxiety disorder, unspecified (principal); K02.9 Dental caries, unspecified; R13.10 Dysphagia, unspecified; I25.10 Atherosclerotic heart disease of native coronary artery without angina pectoris; I10 Essential (primary) hypertension; I25.2 Old myocardial infarction; Z87.891 Personal history of nicotine dependence
CPT/HCPCS: 36415; 71045; 80053; 84484; 85025; 85055; 93005; 99284

== ENCOUNTER 2024-12-25 22:42 | Inpatient (IN) | payer OTHER, SELFPAY ==
--- NOTE | ~2024-12-25 | XR_ITS ---
CHEST RADIOGRAPH, PA AND LATERAL CLINICAL HISTORY: left sided chest pain, hx of NE . COMPARISON: 11/01/2024 TECHNIQUE: PA and lateral views of the chest. FINDINGS The cardiomediastinal silhouette is unremarkable. The lungs are clear. Visualized osseous structures and soft tissues are unremarkable. IMPRESSION: No focal infiltrate or effusion. Reviewed, dictated and finalized at location A.
--- NOTE | 2024-12-25 22:44 | ECG_ITS ---
Test Date: 2024-12-25 22:57:40 Measurements Intervals [place] Rate: 87 P: 48 TN: 162 QRS: 56 QRSD: 93 T: 47 QT: 365 QTc: 440 Interpretive Statements SINUS RHYTHM Compared to ECG 11/01/2024 01:31:55 No significant changes Electronically Signed On 12-26-2024 18:28:11 CDT by Roger Turcios M.D.
--- OUTSIDE RECORDS SUMMARY | 2024-12-25 22:44 | XMS_ITS | Clinical Summary ---
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 Name Role Phone Aleida Hu Primary Care Provider + Allergies Active Allergy Reactions Criticality Noted Date Comments Erythromycin Other (See comments) Low 05/03/2019 States she was a baby and was told she was allergic Medications famotidine (PEPCID) 20 mg tablet Take 2 tablets (40 mg total) by mouth daily Active aspirin 81 mg enteric coated tablet Take 1 tablet (81 mg total) by mouth daily Active meclizine (ANTIVERT) 25 mg tablet Take 1 tablet (25 mg total) by mouth 3 (three) times a day as needed for dizziness Active nitroglycerin (NITROSTAT) 0.[address] 1 tablet (0.4 mg total) under the tongue every 5 (five) minutes as needed (may repeat q.5h minutes for a total dosage) 30 tablet 3 3 Active evolocumab (REPATHA) syringe syringe Inject 1 mL (140 mg total) under the skin every 14 (fourteen) days 2 mL 11 3 Active clopidogreL (PLAVIX) 75 mg tabletIndicatio ns:Presence of stent in coronary artery Take 1 tablet (75 mg total) by mouth daily 30 tablet 7 3 Active chlorthalidone (HYGROTON) 25 mg tablet Take 1 tablet (25 mg total) by mouth daily 90 tablet 4 06/19/20 25 Active losartan (COZAAR) 50 mg tablet Take 2 tablets (100 mg total) by mouth daily 60 tablet 3 4 Active Active Problems Problem Noted Date Diagnosed Date Angina pectoris, unspecified 04/24/2023 Body mass index 40.0-44.9, adult ([facility]) 01/09 Morbid (severe) obesity due to excess calories 0 02/28/2022 Coronary artery disease invo [place]ving [place] coronary artery of [place] heart without angina pectoris 05/12/2021 History of coronary artery stent placement 05/12 Surgical History Surgery Date Site/Laterality Comments CORONARY ANGIOPLASTY 02/21/2021 Medical History Medical History Date Comments Coronary artery disease ST elevation myocardial infarction (STEMI) of in [place] ([facility]) 02/21/2021 PCOS (polycystic ovarian syndrome) Hypertension GERD (gastroesophageal reflux disease) Anxiety Wears partial dentures Family History Medical History Relation Name Comments Heart attack Father Heart disease Father Lung cancer Mother Relation Name Status Comments Father (Age 46) Hx of CABG but lived a few years after CABG (noncompliant with tx) Mother (Age 44) Sister Alive Social History Tobacco Use Types Packs/Day Years Used Date Smoking Tobacco: Former Cigarettes Smokeless Tobacco: Never Tobacco Cessation:Counseling Given: Not Answered Personal Safety Answer Date Recorded Getting School Help Needed Not on file 10/05 Comments No Sex and Gender Information Value Date Recorded Sex Assigned at Not on file Legal Sex Female 11:47 AM CDT Gender Identity Not on file Sexual Orientation Not on file Obstetrics History Para Term AB IAB SAB Ectopic Multiple Livin g Live Births 1 1 1 Date Outcome GA Total Labor Labor/2nd/3rd Weight Sex Type Anes PTL Lillie A1 A5 Name Clin Term Last Filed Vital Signs Vital Sign Reading Time Taken Comments Blood Pressure 160/114 04/24/2023 2:52 PM CDT Pulse 91 04/24/2023 2:52 PM CDT Temperature - - Respiratory Rate - - Oxygen Saturation 98% 04/24/2023 2:52 PM CDT Inhaled Oxygen Concentration - - Weight 125.6 kg (277 lb) 04/24/2023 2:50 PM CDT Height 175.3 cm (5' 9 ) 04/24/2023 2:50 PM CDT Body Mass Index 40.91 04/24/2023 2:50 PM CDT Plan of Treatment Health Maintenance Due Date Last Done Comments Cervical Cancer Screening 1982 Depression Screening 1982 Hepatitis C Screening 1982 DTaP/Tdap/Td Vaccine (1 - Tdap) 1993 Varicella Vaccines (1 of 2 - 13+ 2-dose series) 1995 Hepatitis B Screening 2000 Regular Well Visit/Exam 18-64 2000 Breast Cancer Screening-Mammogram 12/21/2023 023 Influenza Vaccine (#1) 2024 HPV Vaccines Aged Out No longer eligi ble based on patient's age to complete this topic Pneumococcal vaccine <65 Aged Out No longer eligible based on patient's age to complete this topic Procedures Procedure Name Priority Date/Time Associated Diagnosis Comments DIAGNOSTIC MAMMOGRAM BILATERAL W LEANDRO Schedule Routine, Read Routine (OP Routine) 12/20/2022 11:00 AM CDT Nipple discharge from Last 3 Months or Most Recently Relevant to Health Maintenance Results * Diagnostic Mammogram Bilateral [place] (12/20/2022 11:00 AM CDT) Anatomical Region Laterality Modality Breast Bilateral Mammography 12/20/2022 11:3 2 AM CDT Impressions 12/20/2022 11:41 AM CDT 1. No suspicious finding by mammogram or ultrasound to account for the patient's chronic bilateral nipple discharge. Clinical follow-up, including continued physical examination, is recommended. Any further evaluation regarding this nipple discharge should be based on clinical grounds. 2. No mammographic or sonographic evidence of malignancy in either breast. Screening mammogram in 1 year is recommended. BIRADS 1 - Negative COMMENT: I discussed these findings and impression with the patient at the time of the examination. The patient was provided a nipple discharge handout prior to leaving the department. THIS IS AN ELECTRONICALLY VERIFIED FINAL REPORT 12/20/2022 11:41 AM - Electronically signed by Sidney Martin M.D., MD: Report ID: [id number] Reading Location: [facility] Narrative 12/20/2022 11:41 AM CDT EXAM DESCRIPTION: US BREAST BILATERAL LIMITED; DIAGNOSTIC MAMMOGRAM BILATERAL W [place]O REASON FOR STUDY: 42-year-old female presents for evaluation of bilateral nipple discharge for 20+ years, which she describes as being either milky blue and clear blue in color. She states that the discharge does not occur spontaneously and that she feels the need to express it due to pressure/pain. COMPARISON: None available, baseline mammogram TECHNIQUE: CC and MLO views of the bilateral breasts were obtained with digital technique using breast tomosynthesis with C view. Limited grayscale ultrasound of the bilateral breasts was performed. FINDINGS: DENSITY: There are scattered areas of fibroglandular density. MAMMOGRAM FINDINGS: Seen only on the MLO view, within the left axilla, there is an oval circumscribed mass measuring approximately 1 cm. Based on tomosynthesis, this mass is superficial/cutaneous and corresponds with a benign skin tag on physical examination. There are no suspicious masses, suspicious calcifications, or other suspicious findings in either breast evident by mammogram. ULTRASOUND FINDINGS: Targeted ultrasound of the bilateral subareolar breasts demonstrates no ductal ectasia, solid mass, cyst, or other abnormality which would account for the bilateral nipple discharge. Only normal tissue containing nondilated ducts is identified within the subareolar area of both breasts. us Provider Transcribed Order IMG MAMMO PROCEDURES Final Result from Last 3 Months or Most Recently Relevant to Health Maintenance [place] [id number] [employer] [place] [id number] [employer] [place] Care Teams Cattle Care Worker Relationship Specialty Start Date End Date Aleida Hu PA PCP - General Physician Pre K Special Education Teacher 02/21/21
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
--- OUTSIDE RECORDS SUMMARY | 2024-12-25 22:44 | XMS_ITS | Referral Summary ---
Author Organization [facility] [address] Address [address] [place] [address] Care Team Providers Care Note Specialist Name Role Phone Aleida Hu Primary Care [...] unspecified 04/24/2023 Body mass index 40.0-44.9, adult (CMS/HCC) 01/09 Morbid (severe) obesity due to excess calories 0 02/28/2022 Coronary artery disease invo lving [place] coronary artery of [place] heart without angina pectoris 05/12/2021 History of coronary artery stent placement 05/12 Social History Tobacco Use Types Packs/Day Years [...] on file Sexual Orientation Not on file Last Filed Vital Signs Vital Sign Reading [...] 04/24/2023 2:50 PM CDT Plan of Treatment Not on file Procedures Procedure Name Priority Date/Time Associated Diagnosis [...] AM - Electronically signed by Sidney Martin M.D. MD: Report ID: [id number] Reading Location: [facility] Narrative 12/20/2022 11:41 AM CDT EXAM DESCRIPTION: [...] Most Recently Relevant to Health Maintenance Insurance [employer] SIG [id number] [place] [id number] [employer] [place] Care Teams Note Specialist Relationship Specialty Start Date End Date Aleida Hu PA PCP - General Physician Instantizer Operator 02/21/21
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
--- OUTSIDE RECORDS SUMMARY | 2024-12-25 22:44 | XMS_ITS | Clinical Summary ---
Author Organization [facility] Address [address] [place] [address] Care Team Providers Care Custom Wood Stair Builder Name Role Phone None, Provider MD Primary Care Provider Unavaila ble Allergies Active Allergy Reactions Criticality Noted Date Comments Erythromycin Other (see comment) 05/03/2019 States she was a baby and was told she was allergic Medications ALPRAZolam 0.5 MG tablet Take 1 tablet (0.5 mg total) by mouth nightly as needed for Anxiety. 6 tablet 05/03/2019 Active Social History Tobacco Use Types Packs/Day Years Used Date Smoking Tobacco: Never Assessed Comments No Sex and Gender Information Value Date Recorded Sex Assigned at Not on file Legal Sex Female 11:51 AM CDT Gender Identity Not on file Sexual Orientation Not on file Last Filed Vital Signs Vital Sign Reading Time Taken Comments Blood Pressure 172/99 05/03/2019 3:10 PM CDT Pulse 72 05/03/2019 3:10 PM CDT Temperature 36.7 C (98.1 F) 05/03/2019 3:10 PM CDT Respiratory Rate 18 05/03/2019 3:10 PM CDT Oxygen Saturation 99% 05/03/2019 3:10 PM CDT Inhaled Oxygen Concentration - - Weight 126.1 kg (278 lb) 05/03/2019 11:59 AM CDT Height 157.5 cm (5' 2 ) 05/03/2019 11:59 AM CDT Body Mass Index 50.85 05/03/2019 11:59 AM CDT Plan of Treatment Health Maintenance Due Date Last Done Comments Cervical Cancer Screening Pa p Smear (Age 30 to 64) Every 3 Years 1982 Annual Physical 1985 Hepatitis C 2000 DTaP, Tdap and Td Vaccines ( 1 - Tdap) 2001 Hepatitis B Vaccines (1 of 3 - 19+ 3-dose series) 2001 Cervical Cancer Screening Pa p with HPV Testing (Age 30 to 64) Every 5 Years 2012 Cervical Cancer Screening with HPV 2012 Mammogram Screening 2022 COVID-19 Vaccine (2023-2 5 season) 2024 Influenza Adult (#1) 2024 HPV Vaccines Aged Out No longer eligi ble based on patient's age to complete this topic Meningococcal B Vaccine Aged Out No l onger eligible based on patient's age to complete this topic Meningococcal Vaccine Aged Out No beth paola eligible based on patient's age to complete this topic Pneumococcal Vaccine: Pediat rics (0 to 5 Years) and At-Risk Patients (6 to 64 Years) Aged Out No longer eligible b ased on patient's age to complete this topic RSV Immunizations Under 20 Months Aged Out No longer eligible based on patient's age to complete this topic Care Teams Custom Wood Stair Builder Relationship Specialty Start Date End Date None, Provider, PCP - General 05/03/19
--- OUTSIDE RECORDS SUMMARY | 2024-12-25 22:44 | XMS_ITS ---
Author Organization [facility] Address [address] [place] [address] Care Team Providers Care Condenser Tester Name Role Phone Cynthia Baker Primary Care Provider REASON FOR VISIT 2 Week F/U Encounters Encounter Location Date Provider Diagnosis [facility] [address], [place] [address] 09/12/2024 Cynthia Baker Plan Of Treatment No Information Progress Notes * NATASHA GeraldDanielaOB:1980 (44 yo F)Acc No.[id number]:09/12/2024 UNLOCKED PROGRESS NOTE Patient: Prem PHAM Provider: EZEKIEL Allan :1980 A ge:44 Y S ex:Female Date:09/12/2024 Address:[address] [place], [place] [id number] Subjective: * Chief Complaints: * 1 . 2 Week F/U. * Medical History: Objective: * Vitals: Assessment: Plan: * Treatment: * * Electronic signature of Tawny Baker on 12/25/2024 at 10:44 PM CDT Sign off status: Pending * Provider: EZEKIEL Allan Date: 1 11/13/2023 Generated for Chris mendenhall/Kirstin/eTransmitting on: 0 12/25/2024 10:44 PM CDT
--- OUTSIDE RECORDS SUMMARY | 2024-12-25 22:45 | XMS_ITS ---
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 Stress is when someone feels tense, nervous, anxious, or can\t sleep at night because their mind is troubled Quite a bit In the past year have you sp ent more than 2 nights in a row in a longterm, usp, long term center, or juvenile correctional facility? No Are [...] it been since y ou last smoked? 1-5 years Encounters Encounter Location Date Provider Diagnosis [address] [place] [address] 08/20/2024 Dino Israel Plan Of Treatment No Information Progress Notes * Mina KAUROB:1980 (43 yo F)Acc No.[id number]:08/20/2024 Patient: Prem PHAM :1980 A ge:43 Y S ex:Female Address:[address] [place] [id number] Subjective: * Chief Complaints: * P RAPARE Assessment * Medical History: * Surgical History: * Hospitalization/Major Diagno stic Procedure: * Social History: S ocial Determinants: P RAPARE W hat is your current housing situation? I have housing, A re you worried about losing your housing? N o, W hat is the highest level of school that you have finished? H igh school diploma or GED, W hat is your current work situation? F ull time work,?In the past year, have you or any family members you live with been unable to get any of the following when it was really needed? Check all that apply I do not have problems meeting my needs,?Has lack of transportation kept you from medical appointments, meetings, work or from getting things needed for daily living? N o, H ow often do you see or talk to people that you care about and feel close to? (For example: talking to friends on the phone, visiting friends or family, going to caodaism or club meetings) M ore than 5 times a week, H ow stressed are you? Stress is when someone feels tense, nervous, anxious, or can\t sleep at night because their mind is troubled Quite a bit, I n the past year have you spent more than 2 nights in a row in a longterm, usp, long term center, or juvenile correctional facility? N o, A re you a refugee? N o, [place] from[place] D o you feel physically and emotionally safe where you currently live? Y es, I n the past year, have you been afraid of your partner or ex-partner? N o, P RAPARE Score: 4 . T obacco Use: D ont use, Tobacco Use/Smoking A dditional Findings: Tobacco User e -Cigarette. T obacco Control (Standard) T obacco use: F ormer smoker, W hen did you start smoking? 04/10/1995, W hen did you stop smoking? 0 12/09/2021, H ow long has it been since you last smoked? 1 -5 years, A dditional Findings: Tobacco user e -cigarette,Heavy cigarette smoker (20-39 cigs/day). * Medications: Objective: * Vitals: * Physical Examination: Assessment: Plan: * Treatment: * Procedure Codes: * true * Date: Generated for Chris mendenhall/Kirstin/Alcides on: 0 12/25/2024 10:45 PM CDT
--- OUTSIDE RECORDS SUMMARY | 2024-12-25 22:45 | XMS_ITS | Data Portability ---
Author Organization [facility] [employer] , [facility] Address [address] [place] [address] Assessment No assessment recorded. Plan of Treatment Reminders Order Date Submit Date Provider Last Modified By Organization Details Last Modified Time Details Appointments None recorded. Lab bacterial vaginosis + vaginitis panel, vaginal 2022 023 [facility], [address] [place] [address], [address], 3 13:41:18 prolactin , serum 2022 023 [facility], [address] [place], [address], 3 11:02:57 unlisted lab - STD screening ([facility]) 2022 023 [facility], [address] [place], [address], 3 12:49:01 testoster one, free + total, serum 2022 023 [facility], [address] [place], [address], 3 11:02:56 pap, LB 2022 023 [facility] [employer] [facility], [address] [place], [address], 3 11:02:56 HPV E6+E7 mRNA, qualitati ve PCR, cervix 2022 023 [facility], [address] [place], [address], 3 15:56:56 HIV 1+2 Ab + HIV1 p24 Ag, quantitat jesu immunoass ay, serum 2020 [facility], [address] [facility], [place], [address], 1 16:40:54 HBsAg (hepatiti s B surface Ag), serum 2020 [facility], [address] [place], [address], 1 16:40:54 hepatitis C virus Ab, serum 2020 [facility], [address] [place], [address], 1 16:40:54 RPR (rapid plasma reagin), serum 2020 [facility], [address] [place], [address], 1 16:40:54 hsv (1+2) igg, serum 2020 [employer] [facility], [address] [place], [address], 1 16:40:55 pap, LB 2020 [employer] [facility], [address] [place], [address], 1 10:28:32 STI panel 2020 [facility], [address] [place], [address], 1 09:37:35 Referral gastroent erologist referral 2022 023 [facility] Kasie Prather MD, [address], [place], [address], 3 14:20:33 mental health counselor referral 2020 022 [facility], [address], [place], [address], 2 16:53:58 Procedures None recorded. Surgeries None recorded. Imaging MAMMO, screening , digital, bilateral 2022 023 [facility], [address], [place], [address], 3 13:31:05 MAMMO, diagnosti c, tomosynth esis, bilateral 2020 021 [facility] Special Procedures Only, [address], [place], [address], 1 14:41:45 Medication Orders Xanax 0.25 mg tablet 2022 023 [facility] 2425, [address] [facility], [place], [address], 3 14:28:26 Patient TargetsNo targets recorded. Patient Instructions Encounter Date Encounter Id Patient Instructions Last Modified By Organization Details Last Modified Time 08/25/2021 [id number] learning about dietary guidelines shayan Not available 08/26/2021 13:18:28 eating healthy foods: care instructions shayan Not available 08/26/2021 13:18:28 abuse/domestic violence education frankinski Not available 08/26/2021 13:18:28 weight management education frankinski Not available 08/26/2021 13:18:28 smoking cessation counseling shayan Not available 08/28/2021 16:26:58 learning about healthy weight shayan Not available 08/26/2021 13:18:28 body mass index: care instructions [email or web address] Not available 08/26/2021 13:18:28 11/01/2022 [id number] Patient Health Questionnaire-9* kbritsch Not available 12/04/2022 14:17:46 eating healthy foods: care instructions shayan Not available 11/01/2022 17:52:08 general health care education shayan Not available 11/01/2022 17:52:08 weight management education shayan Not available 11/01/2022 17:52:08 mammogram: about this test shayan Not available 11/01/2022 17:52:08 Reason for Referral Mental Health Counselor Refe rral for Gynecologic examination Referring Physician: Monique Bridges, [employer]PA[employer], Encounter Date: 08/25/2021 Internal Carver Referral for Hemorrhoids Referring Physician: Monique Bridges DIE REPAIR[employer], Encounter Date: 11/01/2022 Results Created Date Observation Date Name Description Value Unit Range Abnormal Flag Note LastModifiedBy Organization Detail LastModifiedTime 11/07/1911/07/2022 TESTO STERO NE, FREE, BIOAV AILAB LE AND TOTAL , MS albumin 4.1 g/dL 3.6-5. 1 Not Available [address], [address], 11/07/2022 11:02:56 11/07/19 23 11/07/2022 TESTO STERO NE, FREE, BIOAV AILAB LE AND TOTAL , MS sex hormone binding globulin 23.6 nmol/ L 17-124 Not Available [address], [address], 11/07/2022 11:02:56 11/07/19 23 11/07/2022 TESTO STERO NE, FREE, BIOAV AILAB LE AND TOTAL , MS testosterone , free 8.0 pg/mL 0.2-5. 0 high Not Available [facility] [address], [address], 11/07/2022 11:02:56 11/07/19 23 11/07/2022 TESTO STERO NE, FREE, BIOAV AILAB LE AND TOTAL , MS testosterone ,bioavailabl e 15.1 NG/dL 0.5-8. 5 high Not Available [address], [address], 11/07/2022 11:02:56 11/07/19 23 11/07/2022 TESTO STERO NE, FREE, BIOAV AILAB LE AND TOTAL , MS testosterone , total, MS 52 NG/dL 2-45 high For addit ional infor roger bates e refer to https ://ed ucati on.qu estCareFamily. com/f aq/FA Q165 (This link is being provi ded for infor matroosevelt nal/e ducat ional purpo ses only. ) (Note ) This test was devel oped and its frank tical perfo rmanc e jeff cteri stics have been deter mined by [employer]. It has not been clear ed or appro tamera by the FDA. This assay has been valid ated pursu ant to the CLIA regul ation s and is used for clini tomas purpo ses. F med fusio n [address] [facility] [address] [facility] [address] [phone] Raul zuluaga MD Not Available [facility] [address] [address] [place], [address], 11/07/2022 11:02:56 11/07/1911/07/2022 THINP REP TIS PAP clinical information: normal None given Not Available [facility] [address] [address] [place], [address], 11/07/2022 11:02:56 11/07/1911/07/2022 THINP REP TIS PAP LMP: normal None given Not Available [facility] [address] [address] [place], [address], 11/07/2022 11:02:56 11/07/19 23 11/07/2022 THINP REP TIS PAP prev. Pap: normal None given Not Available [address] [address] [place], [address], 11/07/2022 11:02:56 11/07/19 23 11/07/2022 THINP REP TIS PAP prev. BX: normal None given Not Available [address] [place], [address], 11/07/2022 11:02:56 11/07/19 23 11/07/2022 THINP REP TIS PAP source: normal Cervi x Not Available [address] [place], [address], 11/07/2022 11:02:56 11/07/19 23 11/07/2022 THINP REP TIS PAP statement of adequacy: normal Satis facto ry for evalu ation . Endoc ervic al/tr ansfo rmati on zone compo nent prese nt. Not Available [address] [place], [address], 11/07/2022 11:02:56 11/07/19 23 11/07/2022 THINP REP TIS PAP general categorizati on: abnormal EPITH ELIAL CELL ABNOR MALIT Y Not Available [address] [place], [address], 11/07/2022 11:02:56 11/07/19 23 11/07/2022 THINP REP TIS PAP interpretati on/result: abnormal Low Grade Squam ous Intra epith elial Lesio n (LSIL ) Not Available [address] [place], [address], 11/07/2022 11:02:56 11/07/19 23 11/07/2022 THINP REP TIS PAP infection: normal Trich omona s vagin niki ident ified . Not Available [address] [place], [address], 11/07/2022 11:02:56 11/07/19 23 11/07/2022 THINP REP TIS PAP comment: normal This Pap test has been evalu ated with compu ter lelo baca techn ology . [facility] clini tomas corre latio n and follo w-up as clini jose appro priat e Not Available [address] [address] [place], [address], 11/07/2022 11:02:56 11/07/19 23 11/07/2022 THINP REP TIS PAP cytotechnolo gist: normal LMT, CT( CP) CT scree nora locat ion: [address] [address] [place] [address] Not Available [address] [address] [place], [address], 11/07/2022 11:02:56 11/07/19 23 11/07/2022 THINP REP TIS PAP pathologist: normal Adelaida mayen M.D., Board Certi fied in Anato deysi Patho logy and Cytop athol ogy. Phone : [phone] (elec troni c signa jose) Not Available [address], [place], [address], 11/07/2022 11:02:56 11/07/19 23 11/07/2022 THINP REP TIS PAP comment EXPLA NATOR Y NOTE: The Pap is a scree nora test for cervi tomas cance r. It is not a diagn ostic test and is subje ct to false negat jesu and false posit jesu resul ts. It is most relia ble when a satis facto ry sampl e, regul taz obtai anthony, is submi tted with relev ant clini tomas findi ngs and histo ry, and when the Pap resul t is evalu ated along with histo jayy and curre nt clini tomas infor matio n. Not Available [address] [address] [place], [address], 11/07/2022 11:02:56 11/07/19 23 11/07/2022 PROLA CTIN prolactin 6.7 NG/mL normal Refer ence Range Femal es Non-p regna nt 3.0-3 0.0 Pregn ant 10.0- 209.0 Postm enopa usal 2.0-2 0.0 NO COLLE CTION DATE RECEI TAMERA. WE HAVE USED THE DATE THE SPECI MEN WAS RECEI TAMERA BY THIS LABOR ATORY THE COLLE CTION DATE. IF THIS IS INCOR RECT, PLEAS E CONTA CT CLIEN T SERVI LANDON. PHONE NUMBE R: [phone] Not Available [facility] [address] [address] [place], [address], 11/07/2022 11:02:57 08/25/20 21 08/29/2021 STI PANEL trichomonas vaginalis TRICH POS negati ve positive Not Available [address], [address], 08/30/2021 09:37:35 08/25/20 21 08/29/2021 STI PANEL chlamydia trachomatis CT neg negati ve If both Pap and Endoc ervic al swabs are colle cted, the Prese rvCyt Solut ion liqui d Pap speci men must be colle cted befor e the endoc ervic al swab speci men. Not Available [address], [address], 08/30/2021 09:37:35 08/25/20 21 08/29/2021 STI PANEL neisseria gonorrhoeae GC neg negati ve If both Pap and Endoc ervic al swabs are colle cted, the Prese rvCyt Solut ion liqui d Pap speci men must be colle cted befor e the endoc ervic al swab speci men. Not Available [facility] [address] [place], [address], 08/30/2021 09:37:35 08/25/20 21 09/06/2021 THINP REP TIS PAP clinical information: normal SCREE NORA Not Available [address] [address] [place], [address], 09/06/2021 10:28:32 08/25/20 21 09/06/2021 THINP REP TIS PAP LMP: normal NONE GIVEN Not Available [address] [place], [address], 09/06/2021 10:28:32 08/25/20 21 09/06/2021 THINP REP TIS PAP prev. Pap: normal NONE GIVEN Not Available [address] [place], [address], 09/06/2021 10:28:32 08/25/20 21 09/06/2021 THINP REP TIS PAP prev. BX: normal NONE GIVEN Not Available [address] [place], [address], 09/06/2021 10:28:32 08/25/20 21 09/06/2021 THINP REP TIS PAP source: normal Cervi x Not Available [address] [place], [address], 09/06/2021 10:28:32 08/25/20 21 09/06/2021 THINP REP TIS PAP statement of adequacy: normal Satis facto ry for evalu ation . Endoc ervic al/tr ansfo rmati on zone compo nent prese nt. Age and/o r menst rual statu s not provi ded Not Available [address] [place], [address], 09/06/2021 10:28:32 08/25/20 21 09/06/2021 THINP REP TIS PAP general categorizati on: abnormal EPITH ELIAL CELL ABNOR MALIT Y Not Available [address] [place], [address], 09/06/2021 10:28:32 08/25/20 21 09/06/2021 THINP REP TIS PAP interpretati on/result: abnormal Atypi tomas Squam ous Cells of Undet ermin ed Signi fican ce (ASC- US) Not Available [address] [address] [place], [address], 09/06/2021 10:28:32 08/25/20 21 09/06/2021 THINP REP TIS PAP comment: normal This Pap test has been evalu ated with compu ter lelo phuong techn ology . [facility]ge [address] clini tomas corre latio n and follo w-up as clini jose appro priat e Not Available [address] [address] [place], [address], 09/06/2021 10:28:32 08/25/20 21 09/06/2021 THINP REP TIS PAP cytotechnolo gist: normal BKA, CT( CP) CT scree nora locat ion: [address] [address] [place] [address] Not Available [address] [address] [place], [address], 09/06/2021 10:28:32 08/25/20 21 09/06/2021 THINP REP TIS PAP pathologist: normal Adelaida mayen M.D., Board Certi fied in Anato deysi Patho logy and Cytop athol ogy. Phone : [phone] (elec troni c signa ture) Not Available [address] [address] [place], [address], 09/06/2021 10:28:32 08/25/20 21 09/06/2021 THINP REP TIS PAP comment EXPLA NATOR Y NOTE: The Pap is a scree nora test for cervi tomas cance r. It is not a diagn ostic test and is subje ct to false negat jesu and false posit jesu resul ts. It is most relia ble when a satis facto ry sampl e, regul taz obtai anthony, is submi tted with relev ant clini tomas findi ngs and histo ry, and when the Pap resul t is evalu ated along with histo jayy and curre nt clini tomas infor celi n. Not Available [facility] [address] [place], [address], 09/06/2021 10:28:32 08/25/2009/08/2021 HPV HIGH RISK HPV high risk Negati ve negati ve Not Available [address], [address], 09/09/2021 09:21:30 11/01/19 23 11/02/2022 STD SCREE NROA ([facility] ) hep B sag Non-Re active non-re active normal Not Available [address], [address], 11/02/2022 12:49:01 11/01/19 23 11/02/2022 STD SCREE NORA ([facility] ) hep C Ab Non-Re active non-re active normal Not Available [address], [address], 11/02/2022 12:49:01 11/01/19 23 11/02/2022 STD SCREE NORA ([facility] ) HIV 1/2 Ag/Ab Non-Re active non-re active normal Not Available [address], [address], 11/02/2022 12:49:01 11/01/19 23 11/02/2022 STD SCREE NORA ([facility] ) syphilis Ab Non-Re active non-re active normal Not Available [address], [address], 11/02/2022 12:49:01 11/01/19 23 11/02/2022 PROLA CTIN prolactin 7.7 NG/mL Refer ence Range s Femal e aged 18-Ad ult Nonpr egnan t: 2.8-2 9.2 ng/mL Pregn ant: 9.7-2 08.5 ng/mL Post- menop ausal : 1.8-2 0.3 ng/mL Pregn jalil, lacta tion, and the admin istra tion of oral contr acept shorty can incre ase prola ctin lucero ntrat ions. Not Available [address], [address], 11/02/2022 13:56:14 11/01/19 23 11/02/2022 HPV HIGH RISK HPV high risk POSITI VE negati ve abnormal The HPV High Risk assay is inten ded for use as co-te sting with cytol ogy and not as a subst itute for regul ar cervi tomas cytol ogy scree nora. This assay is not inten ded for use as a scree nora devic e for women under age 30 with adelaida l cervi tomas cytol ogy. Not Available [address], [address], 11/02/2022 15:56:55 11/01/1911/03/2022 VAGIN ITIS PLUS STD PANEL bacterial vaginosis BV POS negati ve abnormal Not Available [address], [address], 11/03/2022 13:41:18 11/01/19 23 11/03/2022 VAGIN ITIS PLUS STD PANEL stephany species C. spp neg negati ve normal Not Available [address], [address], 11/03/2022 13:41:18 11/01/19 23 11/03/2022 VAGIN ITIS PLUS STD PANEL stephany glabrata C. gla neg negati ve normal Not Available [address], [address], 11/03/2022 13:41:18 11/01/19 23 11/03/2022 VAGIN ITIS PLUS STD PANEL trichomonas vaginalis CV/TV TRICH POS negati ve abnormal Not Available [address], [address], 11/03/2022 13:41:18 11/01/19 23 11/03/2022 VAGIN ITIS PLUS STD PANEL chlamydia trachomatis CT neg negati ve normal This repor t is inten ded for us in clini tomas monit oring and manag ement of patie nts. It is not inten ded for use in medic al- gal appli catio n. Not Available [facility] [address] [place] [address], [address], 11/03/2022 13:41:18 11/01/19 23 11/03/2022 VAGIN ITIS PLUS STD PANEL neisseria gonorrhoeae GC neg negati ve normal This repor t is inten ded for us in clini tomas monit oring and manag ement of patie nts. It is not inten ded for use in medic al-le gal appli catio n. Not Available [facility] [address] [place] [address], [address], 11/03/2022 13:41:18 11/01/19 23 11/09/2022 HPV GENOT YPE HPV 16 Negati ve negati ve normal Not Available [facility] [address] [place] [address], [address], 11/10/2022 07:58:26 11/01/19 23 11/09/2022 HPV GENOT YPE HPV 18/45 Negati ve negati ve normal Assay can diffe renti ate HPV 16 from HPV 18 and/o r HPV 45. But inocenteo t diffray renti ate betwe en 18 and 45. Not Available [facility] [address] [place] [address], [address], 11/10/2022 07:58:26 Result Notes None recorded. Procedures Surgical History Date Name Laterality Status Provider Name and Address Organization Details Recorded Time 4 Colposcopy - Cervix cancelled Micheline Elizabether [employer] IV 09/10/2023 14:36:37 3 Most Recent Mammogram completed [facility] 11/20/2023 16:09:53 3 Date of Last Pap Smear completed Micheline Becker [employer] 12/06/2022 16:59:17 Heart surgery completed Micheline Elizabether [employer] 11/01/2022 16:00:03 placement of stent in pulmonary artery completed Micheline Elizabether 3D Data 08/25/2021 10:32:29 Imaging Results None recorded. Procedure Notes None recorded. Medical Equipment None Reported. Allergies Allergen ID Allergen Name Allergen Category Reaction Reaction Severity Criticality Documentation Date Start Date Code Code System Note Provider Name and Address Organization Details Recorded Time 169688 erythromy stevie medicatio n Not available Not available Not available 08/25/2021 4053 RxNorm Not Available Not Available Not Available 968325 azithromy stevie medicatio n Not available Not available Not available 11/01/2022 45234 RxNorm Not Available Not Available Not Available Medications Name Sig Start Date Stop Date Status Note LastModified by Organization Details LastModified Time losartan 50 mg tablet TAKE 2 TABLETS BY MOUTH ONCE DAILY active Not Available Not Available No t Available atorvastati n 40 mg tablet TAKE 2 TABLETS BY MOUTH ONCE DAILY active Not Available Not Available No t Available clopidogrel 75 mg tablet TAKE 1 TABLET BY MOUTH ONCE DAILY active Not Available Not Available No t Available alprazolam 0.25 mg tablet TAKE 1 TABLET BY MOUTH TWICE DAILY FOR 14 DAYS active Not Available Not Available No t Available famotidine 20 mg tablet Take 1 tablet twice a day by oral route. active Not Available Not Available No t Available lorazepam 0.5 mg tablet TAKE 1 TABLET BY MOUTH THREE TIMES DAILY NEEDED active Not Available Not Available No t Available meclizine 25 mg tablet TAKE 1 TABLET BY MOUTH THREE TIMES DAILY NEEDED FOR DIZZINESS active Not Available Not Available No t Available losartan 25 mg tablet TAKE 1 TABLET BY MOUTH ONCE DAILY active Not Available Not Available No t Available fluoxetine 10 mg capsule TAKE 1 CAPSULE BY MOUTH IN THE MORNING active Not Available Not Available No t Available lansoprazol e 15 mg capsule,del ayed release TAKE 1 CAPSULE BY MOUTH ONCE DAILY active Not Available Not Available No t Available clindamycin 2 % vaginal cream Insert 1 applicato rful every day by vaginal route at bedtime for 7 days. active Not Available Not Available No t Available hydroxyzine HCl 25 mg tablet TAKE 1 TABLET BY MOUTH EVERY 6 HOURS NEEDED active Not Available Not Available No t Available lisinopril 5 mg tablet TAKE 1 TABLET BY MOUTH ONCE DAILY 11/01 completed Not Available Not Available Not Available Baby Aspirin 81 mg chewable tablet Chew 1 tablet every day by oral route. active Not Available Not Available No t Available loratadine 10 mg tablet 08/25 completed Not Available Not Available Not Available rosuvastati n 10 mg tablet 08/25 completed Not Available Not Available Not Available tinidazole 500 mg tablet TAKE 4 TABLETS BY MOUTH NOW A ONE TIME DOSE active Not Available Not Available No t Available Praluent Pen 75 mg/mL subcutaneou s pen injector INJECT 75 MG UNDER THE SKIN EVERY 14 DAYS active Not Available Not Available No t Available Repatha SureClick 140 mg/mL subcutaneou s pen injector INJECT 140 MG SUBCUTANE OUSLY EVERY 14 DAYS active Not Available Not Available No t Available Vitals Date Recorded Body height Body mass index (BMI) Body weight Body temperature Systolic blood pressure Diastolic blood pressure Provider Name and Address Organization Details Last Updated DateTime 1 175.26 cm 39.1 kg/m2 662907. 98 g 98.4 [degF] 138 mm[Hg] 86 mm[Hg] Micheline Becker 3D Data IV 1 10:27:39 Date Recorded Body height Body mass index (BMI) Body weight Body temperature Systolic blood pressure Diastolic blood pressure Provider Name and Address Organization Details Last Updated DateTime 3 175.26 cm 40.1 kg/m2 400890. 69 g 98.4 [degF] 144 mm[Hg] 92 mm[Hg] Micheline Becker 3D [facility] IV 3 16:09:37 Date Recorded Body height Body mass index (BMI) Body weight Body temperature Systolic blood pressure Diastolic blood pressure Provider Name and Address Organization Details Last Updated DateTime 3 175.26 cm 40.1 kg/m2 429205. 41 g 98.2 [degF] 178 mm[Hg] 118 mm[Hg] Micheline Becker [employer] [employer] IV 3 16:58:15 Social History Question Answer Notes LastModified by Organizat ion Details LastModified Time Tobacco Smoking Status Former Smoker Micheline briceno 3D [employer] IV 11/01/2022 16:00:31 What Is Your Level Of Alcohol Consumption? None Information not available 08/25/2021 What Type Of Diet Are You Following? REGULAR Information not available 11/01/2022 Do You Or Have You Ever Used E-cigarettes Or Vape? Current User Of Electronic Cigarettes Information not available 11/01/2022 How Many Children Do You Have? 1 Information not available 11/01/2022 What Is Your Relationship Status? Single Information not available 08/25/2021 Are You Sexually Active? Yes Information not available 08/25/2021 At What Age Did You Start Smoking Tobacco? 15 Information not available 11/01/2022 How Much Tobacco Do You Smoke? 1 PPD Information not available 11/01/2022 How Many Years Have You Smoked Tobacco? 25 Information not available 11/01/2022 Sex: Unknown Functional Status Question Answer Note LastModified by Organizat ion Details LastModified Time What is your exercise level? Occasional Information not available 11/01/2022 Mental Status None recorded. Family History Relationship Description Onset Age of this Age Resolved Age Notes LastModified by Organization Details LastModified Time Father Myocardial infarction Not available 10:31:45 Father Heart disease Not available 10/09 16:00:03 Mother Malignant tumor of lung Not available 08/08 10:31:52 Medical History Condition Response High Blood Pressure Y Depression Y Panic Attacks Y High Cholesterol Y Heart Attack Y Heart Disease Y Gynecological History Statement/Question Response Flow Heavy Date of last HPV 11/07/2022 Frequency of Cycle (Q days) Varies Date of LMP 11/25/2022 Date of Last Pap Smear 11/07/2022 Duration of Flow (days) 5-14 Most Recent Mammogram 12/20/2022 Current Control Method None Age at Menarche 16 Obstetrics History GPAL:G 1 P 1 0 0 1 Type Value Full Term 1 Living 1 Total 1 Past Encounters Encounter ID Performer Location Encounter Start Date Encounter Closed Date Diagnosis/Indication Diagnosis SNOMED-CT Code Diagnosis ICD10 Code Diagnosis Note [id number] Monique Bridges CNM [facility] [address] [place] [address] 08/25/2021 09:59:00 08/29/2021 11:36:18 Gynecologic examination 78929582 Z01.419 Screening for malignant neoplasm of cervix 408621089 Z12.4 [facility] education 117758091 Z30.09 Depression screening 171 296307 Z13.31 Dietary ma nagement surveillance 713720853 Z71.3 Venereal d isease screening 003001794 Z11.3 Bilateral discharge from nipples 1407188378 8473655 N64.52 [id number] KANCHAN [address] [address] 11/01/2022 15:55:13 11/01/2022 17:29:20 Gynecologic examination 71077934 Z01.419 Screening for malignant neoplasm of cervix 673645270 Z12.4 Screening for malignant neoplasm of breast 693422059 Z12.39 Depression screening 171 780668 Z13.31 Increased hair growth 13 376459 L68.9 Vaginal discharge 144083 006 N89.8 Discharge from nipple 54 527487 N64.52 Venereal d isease screening 260700046 Z11.3 Hemorrhoids 36969995 K64 .9 referral to GI initiated [id number] Monique Bridges, [address] [address] 12/06/2022 16:44:13 12/07/2022 12:30:50 Low grade squamous intraepithelial lesion on cervical Papanicolaou smear [id number] 9105 R87.612 Human nisha llomavirus deoxyribonucleic acid detected, high risk on cervical specimen [id number] R87.810 Anxiety [id number] F41.9 Hypertensive crisis [id number] I16.9 Severe range blood pressure today. Discussed findings and recommende d patient go straight to ER. Patient refuses. States she is just nervous about procedure and requesting that we proceed. Dr. Painter in for exam. Explained concerns and reinforced severity of findings. Will reschedule with him and premedicat e with antianxiet y medication however patient and significan t other aware that procedure will not take place if severe range blood pressures. Health Concerns Section Related Observation LastModified by Organization Detai ls LastModified Time None Recorded Concern Status LastModified by Organization Details LastModified Time None Recorded Advance Directives Directive None Recorded Payers Encounter Date Sequence Insurance Name Policy Number Policy Hernandez Covered Member ID Hernandez Member ID Guarantor Name 08/25/2021 1 [employer] [place] - DOS ON OR AFTER 2020 (MEDICAID REPLACEMENT - HMO) Prem Jalen [id number] Prem Jalen 11/01/2022 1 [employer] Prem Jalen [id number] Prem Jalen 12/06/2022 1 [id number] Prem Jalen [id number] Prem Rao Notes Date Note Type Note Provider Name and Address Organization Details Recorded Time 08/25/2021 text/html Annual GYNReport ed bypatient.Menstrua l cycle:Normal menses Urinary symptoms:No hematuria; No incontinence Vulva:No genital lesion Vagina:Normal vaginal discharge Breast:No breast pain; No breast lump; No nipple discharge Sexual complaints:No sexual complaints; No pain during intercourse; Normal libido Menopausal Symptoms:No menopausal symptoms; Normal vaginal lubrication Psychological symptoms:No depression; No anxiety; No PMDD Monique Bridges CNM [address] [place], [address], 3D [employer] IV 08/28/2021 16:29:04 11/01/2022 text/html Annual GYNReport ed bypatient.History: no gynecologic complaints Menstrual cycle:Normal menses Urinary symptoms:No hematuria; No incontinence Vulva:No genital lesion Vagina:Normal vaginal discharge Breast:No breast pain; No breast lump;Nipple discharge Current Contraception:Yousif h control not practiced Sexual complaints:No sexual complaints; No pain during intercourse; Normal libido Menopausal Symptoms:No menopausal symptoms; Normal vaginal lubrication Psychological symptoms:No depression; No anxiety; No PMDD Preventive measures:Encourage self breast examination; Encourage regular exercise; Encourage regular mammograms starting age 40 Patient reports she had her second heart attack on December 09 Monique Bridges CNM [address] [place], [address], [employer]D [employer] IV 11/05/2022 23:06:56 12/06/2022 text/html pt is here for colpo. LGSIL HPV positive 16, 18/45 negative. Patient blood pressure severely elevated today. 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 Status 08/25/20 21 1 CLOSED Fetus Data First Name Last Name Admitted to NICU Weight (g) Sex Living Outcome Pediatric Complications Fetus ID Race Codes Race Delivery Type 4167.14 9704 M Full Term [id number] Esau Calculation Initial Esau Date Initial Exam Date Initial Exam Provider Initial Ultrasound Date Last Menstrual Period Date Ultra Sound Weeks Gestation 0 Eighteen To Twenty Week Esau Update Ultra Sound Date Fundal Height At Umbil Quickening Date Ultra Sound Latest Weeks Gestation Final Esau Confirmed By Final Esau Confirmed Date Final Esau Date Ultra Sound Latest Days Gestation 0 0 Menstrual History Last Menstrual Date Menses Monthly On Bcp Conception Prior Menses Frequency Hcg Plus Date Menarche Onset Age Delivery Information Delivery Date Delivery Type Labor Anesthesia Weeks Gestation Incision Type Labor Labor Length Hrs Delivered By Post Complications Tubal Sterilization Discharge Date Comments 2 Regional- idural Discharge Information Feeding Method Contraceptive Method Maternal HG B and HCT Levels
--- OUTSIDE RECORDS SUMMARY | 2024-12-25 22:45 | XMS_ITS | Data Portability ---
Author Organization [facility] VER[facility]NICARenny Address [address] [place] [address] Care Team Providers Care [employer] Name Role Phone OLGA ARELLANO Primary Care Provider Assessment Encounter Date Assessment Date Assessment LastModified by Organization Details LastModified Time 05/10/2021 05/10/2021 constpation increased Not available 05/10/2021 16:47:05 06/17/2021 06/17/2021 constpation increased Not available 06/17/2021 16:03:20 Plan of Treatment Reminders Order Date Submit Date Provider Last Modified By Organization Details Last Modified Time Details Appointments None recorded. 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 2020 [facility] (Lab), [address], [place], [address], 17:40:09 BMP, serum or plasma 2020 021 [facility] (Lab), [address] [place], [address], 15:40:19 CBC 2020 021 [facility] (Lab), [address] [place], [address], 1 15:40:03 CMP, serum or plasma 2020 021 [place] [facility], [address] [address], [place], [address], 1 07:12:42 lipid panel, serum 2020 021 [facility], [address], [place], [address], 1 07:12:42 CBC w/ auto diff 2020 021 [facility], [address], [place], [address], 1 07:12:41 albumin/cr eatinine, mass ratio, urine 2020 [facility], [address], [place], [address], 1 07:12:43 TSH + free T4, serum 2020 021 [facility], [address], [place], [address], 1 07:12:40 HbA1c (hemoglobi n A1c), blood 2020 021 [facility], [address], [place], [address], 1 07:12:44 Referral otolaryngo logist referral 2020 021 [email or web address] Not available 16:34:34 gastroente rologist referral 2020 021 [email or web address] Not available 16:39:13 Procedures upper endoscopy procedure (EGD) (PROC) [facility] [address] [place], [address], 1 10:05:12 Surgeries None recorded. Imaging None recorded. Medication Orders meclizine 25 mg tablet 2020 021 [email or web address] [facility], [address], [place], [address], 19:33:20 loratadine 10 mg tablet 2020 021 [email or web address] [facility], [address], [place], [address], 10:14:13 rosuvastat in 10 mg tablet 2020 021 ALEKS [facility], [address], [place], [address], 16:36:54 Patient TargetsNo targets recorded. 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 Referral for Hemorrhoids Referring Physician: [facility], Encounter Date: 05/10/2021 Results Created Date Observation Date Name Description Value Unit Range Abnormal Flag Note LastModifiedBy Organization Detail LastModifiedTime 03/22/2003/23/2021 CMP, serum or plasm a glucose 77 mg/dL 65-99 Not Available [facility] ([facility]) [address] [place], [address], 03/23/2021 08:19:05 03/22/20 21 03/23/2021 CMP, serum or plasm a BUN 7 mg/dL 6-20 Not Available [facility] ([facility]) [address] [place], [address], 03/23/2021 08:19:05 03/22/2003/23/2021 CMP, serum or plasm a creatinine 0.86 mg/dL 0.57-1 .00 Not Available [facility] ([facility]) [address] [facility], [place], [address], 03/23/2021 08:19:05 03/22/20 21 03/23/2021 CMP, serum or plasm a eGFR if nonafricn AM 86 mL/mi n/1.7 3 >59 Not Available [facility] ([facility]) [address] [facility], [place], [address], 03/23/2021 08:19:05 03/22/20 21 03/23/2021 CMP, serum or plasm a eGFR if africn AM 99 mL/mi n/1.7 3 >59 [facility] curre ntly repor ts eGFR in compl iance with the curre nt recom menda tions of the Natio nal Kidne y Found ation . [facility] will updat e repor ting as new guide lines are publi shed from the NKF-A SN Task force . Not Available [facility] ([facility]) [address] [facility], [place], [address], 03/23/2021 08:19:05 03/22/2003/23/2021 CMP, serum or plasm a BUN/creatini ne ratio 8 9-23 below low normal Not Available [facility] ([facility]) [address] [facility], [place], [address], 03/23/2021 08:19:05 03/22/2003/23/2021 CMP, serum or plasm a sodium 139 mmol/ L 134-14 4 Not Available [facility] ([facility]) [address] [place], [address], 03/23/2021 08:19:05 06/1503/23/2021 CMP, serum or plasm a potassium 4.5 mmol/ L 3.5-5. 2 Not Available [facility] ([facility]) [address] [place], [address], 03/23/2021 08:19:05 03/22/2003/23/2021 CMP, serum or plasm a chloride 105 mmol/ L 96-106 Not Available [facility] ([facility]) [address] [place], [address], 03/23/2021 08:19:05 03/22/2003/23/2021 CMP, serum or plasm a carbon dioxide, total 21 mmol/ L 20-29 Not Available [facility] ([facility]) [address] [place], [address], 03/23/2021 08:19:05 03/22/2003/23/2021 CMP, serum or plasm a calcium 9.2 mg/dL 8.7-10 .2 Not Available [facility] ([facility]) [address] [place], [address], 03/23/2021 08:19:05 03/22/2003/23/2021 CMP, serum or plasm a protein, total 6.8 g/dL 6.0-8. 5 Not Available [facility] ([facility]) [address] [place], [address], 03/23/2021 08:19:05 03/22/2003/23/2021 CMP, serum or plasm a albumin 4.2 g/dL 3.8-4. 8 Not Available [facility] ([facility]) [address] [place], [address], 03/23/2021 08:19:05 03/22/2003/23/2021 CMP, serum or plasm a globulin, total 2.6 g/dL 1.5-4. 5 Not Available [facility] ([facility]) [address] [place], [address], 03/23/2021 08:19:05 03/22/2003/23/2021 CMP, serum or plasm a A/G ratio 1.6 1.2-2. 2 Not Available [facility] ([facility]) [address] [facility] [place], [address], 03/23/2021 08:19:05 03/22/2003/23/2021 CMP, serum or plasm a bilirubin, total 0.6 mg/dL 0.0-1. 2 Not Available [facility] ([facility]) [address] [facility] [place], [address], 03/23/2021 08:19:05 03/22/2003/23/2021 CMP, serum or plasm a alkaline phosphatase 75 IU/L 48-121 Not Available [facility] ([facility]) [address] [place], [address], 03/23/2021 08:19:05 03/22/2003/23/2021 CMP, serum or plasm a AST (SGOT) 15 IU/L 0-40 Not Available [facility] ([facility]) [address] [place], [address], 03/23/2021 08:19:05 03/22/2003/23/2021 CMP, serum or plasm a ALT (SGPT) 9 IU/L 0-32 Not Available [facility] ([facility]) [address] [place], [address], 03/23/2021 08:19:05 03/22/2003/23/2021 CK (crea candy kinas e), total , serum creatine kinase,total 33 U/L 32-182 Not Available [facility] ([facility]) [address] [place], [address], 03/23/2021 08:19:06 06/21/2006/22/2021 TSH+F REE T4 TSH 3.890 uIU/m L 0.450- 4.500 Not Available [facility] ([facility]) [address] [place], [address], 06/22/2021 07:12:40 06/21/20 21 06/22/2021 TSH+F REE T4 T4,free(dire ct) 1.01 NG/dL 0.82-1 .77 Not Available [facility] ([facility]) [address] [facility], [place], [address], 06/22/2021 07:12:40 06/21/2006/22/2021 CBC WITH DIFFE RENTI AL/PL ATELE T WBC 10.6 x10e3 /uL 3.4-10 .8 Not Available [facility] ([facility]) [address] [facility], [place], [address], 06/22/2021 07:12:41 06/21/2006/22/2021 CBC WITH DIFFE RENTI AL/PL ATELE T RBC 4.93 x10e6 /uL 3.77-5 .28 Not Available [facility] ([facility]) [address] [place], [address], 06/22/2021 07:12:41 06/21/2006/22/2021 CBC WITH DIFFE RENTI AL/PL ATELE T hemoglobin 15.0 g/dL 11.1-1 5.9 Not Available [facility] ([facility]) [address] [place], [address], 06/22/2021 07:12:41 06/21/2006/22/2021 CBC WITH DIFFE RENTI AL/PL ATELE T hematocrit 45.0 % 34.0-4 6.6 Not Available [facility] ([facility]) [address] [place], [address], 06/22/2021 07:12:41 06/21/20 21 06/22/2021 CBC WITH DIFFE RENTI AL/PL ATELE T MCV 91 fL 79-97 Not Available [facility] ([facility]) [address] [facility], [place], [address], 06/22/2021 07:12:41 06/21/20 21 06/22/2021 CBC WITH DIFFE RENTI AL/PL ATELE T MCH 30.4 pg 26.6-3 3.0 Not Available [facility] ([facility]) [address] [facility], [place], [address], 06/22/2021 07:12:41 06/21/2006/22/2021 CBC WITH DIFFE RENTI AL/PL ATELE T MCHC 33.3 g/dL 31.5-3 5.7 Not Available [facility] ([facility]) [address] [facility], [place], [address], 06/22/2021 07:12:41 06/21/2006/22/2021 CBC WITH DIFFE RENTI AL/PL ATELE T RDW 13.1 % 11.7-1 5.4 Not Available [facility] ([facility]) [address] [facility], [place], [address], 06/22/2021 07:12:41 06/21/2006/22/2021 CBC WITH DIFFE RENTI AL/PL ATELE T platelets 201 x10e3 /uL 150-45 0 Not Available [facility] ([facility]) [address] [facility], [place], [address], 06/22/2021 07:12:41 06/21/2006/22/2021 CBC WITH DIFFE RENTI AL/PL ATELE T neutrophils 68 % not estab. Not Available [facility] ([facility]) [address] [facility], [place], [address], 06/22/2021 07:12:41 06/21/20 21 06/22/2021 CBC WITH DIFFE RENTI AL/PL ATELE T lymphs 21 % not estab. Not Available [facility] ([facility]) [address] [facility], [place], [address], 06/22/2021 07:12:41 06/21/20 21 06/22/2021 CBC WITH DIFFE RENTI AL/PL ATELE T monocytes 7 % not estab. Not Available [facility] ([facility]) [address] [facility], [place], [address], 06/22/2021 07:12:41 06/21/20 21 06/22/2021 CBC WITH DIFFE RENTI AL/PL ATELE T eos 3 % not estab. Not Available [facility] ([facility]) [address] [facility], [place], [address], 06/22/2021 07:12:41 06/21/20 21 06/22/2021 CBC WITH DIFFE RENTI AL/PL ATELE T basos 1 % not estab. Not Available [facility] ([facility]) [address] [place], [address], 06/22/2021 07:12:41 06/21/20 21 06/22/2021 CBC WITH DIFFE RENTI AL/PL ATELE T immature cells SHINGLE CUTTER Not Available [facility] ([facility]) [address] [place], [address], 06/22/2021 07:12:41 06/21/20 21 06/22/2021 CBC WITH DIFFE RENTI AL/PL ATELE T neutrophils (absolute) 7.2 x10e3 /uL 1.4-7. 0 above high normal Not Available [facility] ([facility]) [address] [facility], [place], [address], 06/22/2021 07:12:41 06/21/20 21 06/22/2021 CBC WITH DIFFE RENTI AL/PL ATELE T lymphs (absolute) 2.3 x10e3 /uL 0.7-3. 1 Not Available [facility] ([facility]) [address] [facility], [place], [address], 06/22/2021 07:12:41 06/21/20 21 06/22/2021 CBC WITH DIFFE RENTI AL/PL ATELE T monocytes(ab solute) 0.8 x10e3 /uL 0.1-0. 9 Not Available [facility] ([facility]) [address] [facility], [place], [address], 06/22/2021 07:12:41 06/21/2006/22/2021 CBC WITH DIFFE RENTI AL/PL ATELE T eos (absolute) 0.3 x10e3 /uL 0.0-0. 4 Not Available [facility] ([facility]) [address] [facility], [place], [address], 06/22/2021 07:12:41 06/21/20 21 06/22/2021 CBC WITH DIFFE RENTI AL/PL ATELE T baso (absolute) 0.1 x10e3 /uL 0.0-0. 2 Not Available [facility] ([facility]) [address] [facility], [place], [address], 06/22/2021 07:12:41 06/21/20 21 06/22/2021 CBC WITH DIFFE RENTI AL/PL ATELE T immature granulocytes 0 % not estab. Not Available [facility] ([facility]) [address] [place], [address], 06/22/2021 07:12:41 06/21/2006/22/2021 CBC WITH DIFFE RENTI AL/PL ATELE T immature grans (abs) 0.0 x10e3 /uL 0.0-0. 1 Not Available [facility] ([facility]) [address] [facility], [place], [address], 06/22/2021 07:12:41 06/21/2006/22/2021 CBC WITH DIFFE RENTI AL/PL ATELE T NRBC SHINGLE CUTTER Not Available [facility] ([facility]) [address] [facility], [place], [address], 06/22/2021 07:12:41 06/21/20 21 06/22/2021 CBC WITH DIFFE RENTI AL/PL ATELE T hematology comments: SHINGLE CUTTER Not Available [facility] ([facility]) [address] [facility], [place], [address], 06/22/2021 07:12:41 06/21/20 21 06/22/2021 COMP. METAB OLIC PANEL (14) glucose 105 mg/dL 65-99 above high normal Not Available [facility] ([facility]) [address] [facility], [place], [address], 06/22/2021 07:12:42 06/21/2006/22/2021 COMP. METAB OLIC PANEL (14) BUN 11 mg/dL 6-20 Not Available [facility] ([facility]) [address] [facility] [place], [address], 06/22/2021 07:12:42 06/21/2006/22/2021 COMP. METAB OLIC PANEL (14) creatinine 0.81 mg/dL 0.57-1 .00 Not Available [facility] ([facility]) [address] [facility] [place], [address], 06/22/2021 07:12:42 06/21/2006/22/2021 COMP. METAB OLIC PANEL (14) eGFR if nonafricn AM 92 mL/mi n/1.7 3 >59 Not Available [facility] ([facility]) [address] [facility] [place], [address], 06/22/2021 07:12:42 06/21/20 21 06/22/2021 COMP. METAB OLIC PANEL (14) eGFR if africn AM 107 mL/mi n/1.7 3 >59 [facility] curre ntly repor ts eGFR in compl iance with the curre nt recom menda tions of the Natio nal Kidne y Found ation . [facility] will updat e repor ting as new guide lines are publi shed from the NKF-A SN Task force . Not Available [facility] ([facility]) [address] [facility], [place], [address], 06/22/2021 07:12:42 06/21/20 21 06/22/2021 COMP. METAB OLIC PANEL (14) BUN/creatini ne ratio 14 9-23 Not Available [facility] ([facility]) [address] [facility], [place], [address], 06/22/2021 07:12:42 06/21/20 21 06/22/2021 COMP. METAB OLIC PANEL (14) sodium 142 mmol/ L 134-14 4 Not Available [facility] ([facility]) [address] [facility], [place], [address], 06/22/2021 07:12:42 06/21/20 21 06/22/2021 COMP. METAB OLIC PANEL (14) potassium 4.4 mmol/ L 3.5-5. 2 Not Available [facility] ([facility]) [address] [facility], [place], [address], 06/22/2021 07:12:42 06/21/20 21 06/22/2021 COMP. METAB OLIC PANEL (14) chloride 109 mmol/ L 96-106 above high normal Not Available [facility] ([facility]) [address] [facility], [place], [address], 06/22/2021 07:12:42 06/21/20 21 06/22/2021 COMP. METAB OLIC PANEL (14) carbon dioxide, total 18 mmol/ L 20-29 below low normal Not Available [facility] ([facility]) [address] [facility], [place], [address], 06/22/2021 07:12:42 06/21/20 21 06/22/2021 COMP. METAB OLIC PANEL (14) calcium 9.2 mg/dL 8.7-10 .2 Not Available [facility] ([facility]) [address] [place], [address], 06/22/2021 07:12:42 06/21/20 21 06/22/2021 COMP. METAB OLIC PANEL (14) protein, total 6.5 g/dL 6.0-8. 5 Not Available [facility] ([facility]) [address] [place], [address], 06/22/2021 07:12:42 06/21/20 21 06/22/2021 COMP. METAB OLIC PANEL (14) albumin 4.2 g/dL 3.8-4. 8 Not Available [facility] ([facility]) [address] [place], [address], 06/22/2021 07:12:42 06/21/20 21 06/22/2021 COMP. METAB OLIC PANEL (14) globulin, total 2.3 g/dL 1.5-4. 5 Not Available [facility] ([facility]) [address] [place], [address], 06/22/2021 07:12:42 06/21/20 21 06/22/2021 COMP. METAB OLIC PANEL (14) A/G ratio 1.8 1.2-2. 2 Not Available [facility] ([facility]) [address] [place], [address], 06/22/2021 07:12:42 06/21/20 21 06/22/2021 COMP. METAB OLIC PANEL (14) bilirubin, total 0.3 mg/dL 0.0-1. 2 Not Available [facility] ([facility] [address] [facility] [place], [address], 06/22/2021 07:12:42 06/21/20 21 06/22/2021 COMP. METAB OLIC PANEL (14) alkaline phosphatase 62 IU/L 44-121 Ple ase note refer ence valeria toscano Not Available [facility] ([facility]) [address] [facility] [place], [address], 06/22/2021 07:12:42 06/21/20 21 06/22/2021 COMP. METAB OLIC PANEL (14) AST (SGOT) 13 IU/L 0-40 Not Available [facility] ([facility]) [address] [facility] [place], [address], 06/22/2021 07:12:42 06/21/20 21 06/22/2021 COMP. METAB OLIC PANEL (14) ALT (SGPT) 7 IU/L 0-32 Not Available [facility] ([facility]) [address] [place], [address], 06/22/2021 07:12:42 06/21/20 21 06/22/2021 LIPID PANEL cholesterol, total 158 mg/dL 100-19 9 Not Available [facility] ([facility]) [address] [place], [address], 06/22/2021 07:12:42 06/21/20 21 06/22/2021 LIPID PANEL triglyceride s 264 mg/dL 0-149 above high normal Not Available [facility] ([facility]) [address] [place], [address], 06/22/2021 07:12:42 06/21/20 21 06/22/2021 LIPID PANEL HDL cholesterol 30 mg/dL >39 below low normal Not Available [facility] ([facility]) [address] [place], [address], 06/22/2021 07:12:42 06/21/20 21 06/22/2021 LIPID PANEL VLDL cholesterol tomas 44 mg/dL 5-40 above high normal Not Available [facility] ([facility]) [address] [place], [address], 06/22/2021 07:12:42 06/21/20 21 06/22/2021 LIPID PANEL LDL chol calc ([facility]) 84 mg/dL 0-99 Not Available [facility] ([facility]) [address] [facility], [place], [address], 06/22/2021 07:12:42 06/21/20 21 06/22/2021 LIPID PANEL comment: SHINGLE CUTTER Not Available [facility] ([facility]) [address] [facility], [place], [address], 06/22/2021 07:12:42 06/21/20 21 06/22/2021 ALBUM IN/CR EATIN INE RATIO ,URIN E creatinine, urine 174.4 mg/dL not estab. Not Available [facility] ([facility]) [address] [facility], [place], [address], 06/22/2021 07:12:43 06/21/20 21 06/22/2021 ALBUM IN/CR EATIN INE RATIO ,URIN E albumin, urine 7.6 ug/mL not estab. Not Available [facility] ([facility]) [address] [facility], [place], [address], 06/22/2021 07:12:43 06/21/20 21 06/22/2021 ALBUM IN/CR EATIN INE RATIO ,URIN E alb/creat ratio 4 mg/g_ creat 0-29 Adelaida l: 0 - 29 Moder ately incre ased: 30 - 300 Sever barb incre ased: >300 Not Available [facility] ([facility]) [address] [facility], [place], [address], 06/22/2021 07:12:43 06/21/20 21 06/22/2021 HEMOG LOBIN A1C hemoglobin A1C 5.5 % 4.8-5. 6 Predi abete s: 5.7 - 6.4 Diabe ari: >6.4 Glyce deysi contr ol for adult s with diabe ari: <7.0 Not Available [facility] ([facility]) [address] [facility], [place], [address], 06/22/2021 07:12:43 09/28/20 21 09/28/2021 CBCON LY - WITHO UT AUTO DIFF WBC 10.4 K/uL 3.4-10 .8 Not Available [facility] (Lab) [address], [place], [address], 10/04/2021 15:40:02 09/28/20 21 09/28/2021 CBCON LY - WITHO UT AUTO DIFF red blood count 5.1 M/uL 4.2-5. 4 Not Available [facility] (Lab) [address], [place], [address], 10/04/2021 15:40:02 09/28/20 21 09/28/2021 CBCON LY - WITHO UT AUTO DIFF hemoglobin 15.5 g/dL 11.5-1 5.5 Not Available [facility] (Lab) [address], [place], [address], 10/04/2021 15:40:02 09/28/20 21 09/28/2021 CBCON LY - WITHO UT AUTO DIFF hematocrit 46.0 % 36.0-4 8.0 Not Available [facility] (Lab) [address], [place], [address], 10/04/2021 15:40:02 09/28/20 21 09/28/2021 CBCON LY - WITHO UT AUTO DIFF MCV 91 fL 80-95 Not Available [facility] (Lab) [address], [place], [address], 10/04/2021 15:40:02 09/28/20 21 09/28/2021 CBCON LY - WITHO UT AUTO DIFF MCH 31 pg 27-32 Not Available [facility] (Lab) [address] [place], [address], 10/04/2021 15:40:02 09/28/20 21 09/28/2021 CBCON LY - WITHO UT AUTO DIFF MCHC 34 g/dL 32-36 Not Available [facility] (Lab) [address] [place], [address], 10/04/2021 15:40:02 09/28/20 21 09/28/2021 CBCON LY - WITHO UT AUTO DIFF platelets 220 K/uL 155-37 9 Not Available [facility] (Lab) [address], [place], [address], 10/04/2021 15:40:02 09/28/20 21 09/28/2021 CBCON LY - WITHO UT AUTO DIFF RDW 13.8 % 11.5-1 4.5 Not Available [facility] (Lab) [address], [place], [address], 10/04/2021 15:40:02 09/28/20 21 09/28/2021 CBCON LY - WITHO UT AUTO DIFF MPV 10.4 fL 8.9-12 .7 Not Available [facility] (Lab) [address] [place], [address], 10/04/2021 15:40:02 09/28/20 21 09/28/2021 BASIC METAB OLIC PANEL (BMP) glucose, serum 86 mg/dL 65-99 Not Available [facility] (Lab) [address], [place], [address], 10/04/2021 15:40:19 09/28/20 21 09/28/2021 BASIC METAB OLIC PANEL (BMP) BUN 10 mg/dL 8-26 Not Available [facility] (Lab) [address] [place], [address], 10/04/2021 15:40:19 09/28/20 21 09/28/2021 BASIC METAB OLIC PANEL (BMP) creatinine, serum 0.72 mg/dL 0.50-1 .40 Not Available [facility] (Lab) [address] [place], [address], 10/04/2021 15:40:19 09/28/20 21 09/28/2021 BASIC METAB OLIC PANEL (BMP) BUN/creatnin e ratio 14.3 Not Available [facility] (Lab) [address] [facility], [place], [address], 10/04/2021 15:40:19 09/28/20 21 09/28/2021 BASIC METAB OLIC PANEL (BMP) sodium, serum 137.2 mmol/ L 136.0- 144.0 Not Available [facility] (Lab) [address] [place], [address], 10/04/2021 15:40:19 09/28/20 21 09/28/2021 BASIC METAB OLIC PANEL (BMP) potassium, serum 4.3 mmol/ L 3.5-5. 3 Not Available [facility] (Lab) [address] [place], [address], 10/04/2021 15:40:19 09/28/20 21 09/28/2021 BASIC METAB OLIC PANEL (BMP) chloride, serum 103 mmol/ l 101-11 1 Not Available [facility] (Lab) [address] [facility], [place], [address], 10/04/2021 15:40:19 09/28/20 21 09/28/2021 BASIC METAB OLIC PANEL (BMP) carbon dioxide total 20.6 mmol/ L 21.0-3 2.0 low Not Available [facility] (Lab) [address] [place], [address], 10/04/2021 15:40:19 09/28/20 21 09/28/2021 BASIC METAB OLIC PANEL (BMP) aniongp 18.0 mmol/ L Not Available [facility] (Lab) [address] [place], [address], 10/04/2021 15:40:19 09/28/20 21 09/28/2021 BASIC METAB OLIC PANEL (BMP) calcium, serum 9.2 mg/dL 8.2-10 .0 Not Available [facility] (Lab) [address] [facility], [place], [address], 10/04/2021 15:40:19 09/28/20 21 09/28/2021 BASIC METAB OLIC PANEL (BMP) osmol 273.0 mOsm/ L 275.0- 301.0 low Not Available [facility] (Lab) [address] [facility], [place], [address], 10/04/2021 15:40:19 09/28/20 21 09/28/2021 BASIC METAB OLIC PANEL (BMP) eGFR, non- AM 96 mL/mi n/1.7 3/m >=60 Not Available [facility] (Lab) [address] [facility], [place], [address], 10/04/2021 15:40:19 02/23/20 21 02/22/2021 US, echoc ardio gram No observ ation record ed. [address] (Imaging) [address] [facility] [address] [facility], [place], [address], 02/28/2021 14:36:59 03/28/20 21 03/28/2021 CT, angio gram, head, w/ contr ast No observ ation record ed. [address] (Imaging) [address] [facility] [address] [facility], [place], [address], 03/29/2021 14:37:36 03/28/20 21 03/28/2021 XR, chest No observ ation record ed. [address] (Imaging) [address] [facility] [address], [place], [address], 03/29/2021 14:37:54 03/29/20 21 03/29/2021 MRI, brain + brain stem, w/o contr ast No observ ation record ed. [address] (Imaging) [address] [facility] [address], [place], [address], 03/30/2021 13:10:46 10/20/19 22 10/05/2021 tawanna r monit or No observ ation record ed. [address] [facility] [address] [facility] [address], [place], [address], 10/21/2021 13:50:05 11/05/19 22 11/05/2021 XR, chest No observ ation record ed. [address], [place], [address], 11/07/2021 13:43:57 11/28/19 22 11/28/2021 XR, chest No observ ation record ed. [address], [place], [address], 11/29/2021 19:11:38 12/10/19 22 12/09/2021 XR, chest , 2 view No observ ation record ed. [address], [place], [address], 12/21/2021 12:26:49 12/13/19 22 12/12/2021 , [facility] ardio gram No observ ation record ed. [address], [place], [address], 12/21/2021 12:27:01 12/16/19 22 12/15/2021 XR, chest No observ ation record ed. [address], [place], [address], 12/21/2021 12:27:12 09/25/20 22 09/25/2022 XR, chest , 2 view No observ ation record ed. [address], [place], [address], 09/25/2022 16:59:35 04/11/20 23 04/11/2023 XR, chest , 2 view No observ ation record ed. [address], [place], [address], 04/11/2023 20:07:19 04/12/20 23 04/11/2023 XR, chest , 2 view No observ ation record ed. [address], [place], [address], 04/17/2023 13:36:03 08/11/20 23 08/11/2023 XR, chest , 2 view No observ ation record ed. [address], [place], [address], 08/18/2023 16:37:27 08/11/20 23 08/11/2023 CT, abdom en + pelvi s, w/ contr ast No observ ation record ed. [address] [address], [place], [address], 08/18/2023 16:37:58 03/04/20 24 03/04/2024 XR, chest , 2 view No observ ation record ed. [address], [place], [address], 03/07/2024 11:20:19 05/16/20 24 05/16/2024 XR, chest , 2 view No observ ation record ed. [address], [place], [address], 05/19/2024 17:24:03 11/01/19 25 11/01/2024 XR, chest , 2 view No observ ation record ed. [address], [place], [address], 11/05/2024 09:44:45 Result Notes None recorded. Problems Name Problem SNOMED Code Status Onset Date Resolution Date Notes Provider Name and Address Organization Details Recorded Time Anxiety 28778369 Active 2019 Jhoana Dill MA [facility], [place] - [facility] 0 11:31:05 Polycystic ovary syndrome 390678694 Active 2019 Jhoana Dill MA null, [place] - [facility] 0 11:32:06 Hypertensive disorder 13134406 Active 2019 Clari Lakhani MA null, [place] - [facility] 0 17:05:20 Myocardial infarction 85379741 Active 2020 RCA 1005 OCCLUS ION. February 2021 ARNAV GATICA Attn: Mary Ann alvares,[address] [facility], [place], [address], [place] - [facility] 1 12:21:40 Problem Notes None recorded. Procedures Surgical History None recorded. Imaging Results Imaging Date Name Status LastModified by Organization Details LastModified Time 02/22/2021 US, echocardiogram completed [address] (Imaging) [facility] [address] [place] [address], [address], 02/28/2021 14:36:59 03/28/2021 CT, angiogram, head, w/ contrast completed [address] (Imaging) [address] [facility] [address], [address], 03/29/2021 14:37:36 03/28/2021 XR, chest completed [address] (Imaging) [address] [place], [place] [address] [address] [place] [address], [address], 03/29/2021 14:37:54 03/29/2021 MRI, brain + brain stem, w/o contrast completed [address] (Imaging) [address] [facility] [address], [address], 03/30/2021 13:10:46 10/05/2021 holter monitor completed [address] [facility] [address], [place], [address], 10/21/2021 13:50:05 11/05/2021 XR, chest completed [address] [facility] [address], [address], 11/07/2021 13:43:57 11/28/2021 XR, chest completed [address] [address], [place], [address], 11/29/2021 19:11:38 12/09/2021 XR, chest, 2 view completed [address] [address], [place], [address], 12/21/2021 12:26:49 12/12/2021 US, echocardiogram completed [address] [address], [place], [address], 12/21/2021 12:27:01 12/15/2021 XR, chest completed [address] [address], [place], [address], 12/21/2021 12:27:12 09/25/2022 XR, chest, 2 view completed [address] [address], [place], [address], 09/25/2022 16:59:35 04/11/2023 XR, chest, 2 view completed [address] [address], [place], [address], 04/11/2023 20:07:19 04/11/2023 XR, chest, 2 view completed [address] [address], [place], [address], 04/17/2023 13:36:03 08/11/2023 XR, chest, 2 view completed [address] [address], [place], [address], 08/18/2023 16:37:27 08/11/2023 CT, abdomen + pelvis, w/ contrast completed [address], [address], 08/18/2023 16:37:58 03/04/2024 XR, chest, 2 view completed [address], [address], 03/07/2024 11:20:19 05/16/2024 XR, chest, 2 view completed [address], [address], 05/19/2024 17:24:03 11/01/2024 XR, chest, 2 view completed [address], [address], 11/05/2024 09:44:45 Procedure Notes None recorded. Medical Equipment None Reported. Allergies Allergen ID Allergen Name Allergen Category Reaction Reaction Severity Criticality Documentation Date Start Date Code Code System Note Provider Name and Address Organization Details Recorded Time 313924 clarithro mycin medicatio n Not available Not available Not available 02/06/2020 85051 RxNorm Since infan t Not Available Not Available Not Available 375215 lisinopri l medicatio n cough Not available Not available 08/09/2020 54325 RxNorm Not Available Not Available Not Available 501150 erythromy stevie medicatio n Not available Not available Not available 03/25/2021 4053 RxNorm Not Available Not Available Not Available Medications Name Sig Start Date Stop Date Status Note LastModified by Organization Details LastModified Time losartan 50 mg tablet TAKE 2 TABLETS BY MOUTH ONCE DAILY active Not Available Not Available No t Available atorvastati n 20 mg tablet active Not Available Not Available Not Available lisinopril 20 mg-hydrochl orothiazide 12.5 mg tablet Take 1 tablet every day by oral route for 30 days. 08/02 completed Not Available Not Available Not Available metronidazo le 500 mg tablet active Not Available Not Available Not Available clopidogrel 75 mg tablet TAKE 1 TABLET BY MOUTH ONCE DAILY active Not Available Not Available No t Available alprazolam 0.25 mg tablet TAKE 1 TABLET BY MOUTH ONCE DAILY NEEDED active Not Available Not Available No t Available famotidine 20 mg tablet Take 1 tablet twice a day by oral route. active Not Available Not Available No t Available lorazepam 0.5 mg tablet TAKE 1 TABLET BY MOUTH THREE TIMES DAILY NEEDED active Not Available Not Available No t Available Celexa 20 mg tablet Take 1 tablet every day by oral route for 90 days. 03/03 completed Not Available Not Available Not Available meclizine 25 mg tablet TAKE 1 TABLET BY MOUTH THREE TIMES DAILY NEEDED FOR DIZZINESS active Not Available Not Available No t Available Prozac 20 mg capsule Take 1 capsule every day by oral route for 30 days. 09/23 completed Not Available Not Available Not Available lisinopril 10 mg tablet Take 1 tablet every day by oral route for 30 days. 08/02 completed Not Available Not Available Not Available losartan 25 mg tablet TAKE 1 TABLET BY MOUTH ONCE DAILY active Not Available Not Available No t Available nitroglycer in 0.4 mg sublingual tablet Every 5 mintutes 3X as needed active Not Available Not Available No t Available Aspirin Childrens 81 mg chewable tablet Chew 1 tablet every day by oral route. active Not Available Not Available No t Available clindamycin 2 % vaginal cream active Not Available Not Available Not Available hydroxyzine HCl 25 mg tablet TAKE 1 TABLET BY MOUTH EVERY 6 HOURS NEEDED active Not Available Not Available No t Available lisinopril 5 mg tablet active Not Available Not Available Not Available metoprolol succinate ER 25 mg tablet,exte nded release 24 hr 03/25 completed Not Available Not Available Not Available losartan 50 mg-hydrochl orothiazide 12.5 mg tablet Take 1 tablet every day by oral route. 03/03 completed Not Available Not Available Not Available Celexa 40 mg tablet Take 1 tablet every day by oral route. 02/05 completed Not Available Not Available Not Available loratadine 10 mg tablet Take 1 tablet every day by oral route for 30 days. 2020 active Not Available Not Available Not Avai lable rosuvastati n 10 mg tablet Take 1 tablet by mouth once daily for 90 days active Not Available Not Available No t Available rosuvastati n 20 mg tablet active Not Available Not Available Not Available tinidazole 500 mg tablet TAKE 4 TABLETS BY MOUTH NOW A ONE TIME DOSE active Not Available Not Available No t Available Brilinta 90 mg tablet Every 12 hrs 05/10 completed Not Available Not Available Not Available Praluent Pen 75 mg/mL subcutaneou s pen injector INJECT 75 MG UNDER THE SKIN EVERY 14 DAYS active Not Available Not Available No t Available Repatha SureClick 140 mg/mL subcutaneou s pen injector active Not Available Not Available Not Available Vitals Date Recorded Body height Body mass index (BMI) Body weight Heart rate Oxygen saturation Oxygen saturation in Arterial blood by Pulse oximetry Systolic blood pressure Diastolic blood pressure Provider Name and Address Organization Details Last Updated DateTime 1 175.26 cm 37.5 kg/m2 337074. 46 g 86 /min 98 % 98 % 122 mm[Hg] 82 mm[Hg] Navi Holder MA [facility] 16:32:47 Date Recorded Body height Body mass index (BMI) Body weight Body temperature Heart rate Respiratory rate Systolic blood pressure Diastolic blood pressure Provider Name and Address Organization Details Last Updated DateTime 1 175.26 cm 38.6 kg/m2 297975. 4 g 96.8 [degF] 80 /min 22 /min 183 mm[Hg] 92 mm[Hg] Mihaela Adler [facility] 17:03:19 Social History Question Answer Notes LastModified by Organization Details LastModified Time Tobacco Smoking Status Current Every Day Smoker Has cut down consideratly since having heart attack last week. -03/03/2021 Clari Lakhani MA [facility] 03/03/2021 16:30:10 Do You Have An Advance Directive? No Information not available 03/25/2021 What Is Your Level Of Alcohol Consumption? None Information not available 02/06/2020 What Is Your Level Of Caffeine Consumption? Moderate Information not available 07/15/2020 How Much Tobacco Do You Chew? None Information not available 02/06/2020 In The 14 Days Before Symptom Onset, Have You Had Close Contact With A Laboratory-confi rmed COVID-19 While That Case Was Ill? No Information not available 03/03/2021 In The 14 Days Before Symptom Onset, Have You Had Close Contact With A Person Who Is Under Investigation For COVID-19 While That Person Was Ill? No Information not available 03/03/2021 Have You Been To An Area Known To Be High Risk For COVID-19? No Information not available 06/17/2021 Are You Currently Employed? Yes Information not available 03/25/2021 What Type Of Diet Are You Following? REGULAR Information not available 02/06/2020 Which Illicit Or Recreational Drugs Have You Used? None Information not available 02/06/2020 Do You Or Have You Ever Used E-cigarettes Or Vape? 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 With Others Information not available 02/06/2020 Do You Have A High School Diploma Or Higher Education? Yes Information not available 03/25/2021 Do You Sometimes Have To Miss Your Medical Appointments Due To Difficult Getting Transportation? No Information not available 03/25/2021 Do You Feel Unfairly Treated Due To Things Such As Race, Age, Gender, Disability Or Some Other Reason? No Information not available 03/25/2021 Do You Feel Physically And Emotionally Safe While Living At Home? Yes Information not available 03/25/2021 Do You Feel Physically And Emotionally Safe In Your Neighborhood Or Other Public Places? Yes Information not available 03/25/2021 What Was The Date Of Your Most Recent Tobacco Screening? 06/17/2021 Information not available 06/17/2021 How Many Children Do You Have? 1 Information not available 02/06/2020 What Is Your Relationship Status? Single Information not available 03/25/2021 Are You Sexually Active? Yes Information not available 03/25/2021 Do You Have Smoke And Carbon Monoxide Detectors In Your Home? Yes Information not available 03/03/2021 At What Age Did You Start Smoking Tobacco? 15 Information not available 02/06/2020 Are You Passively Exposed To Smoke? No Information not available 03/25/2021 Do You Or Have You Ever Used Smokeless Tobacco? Never Used Smokeless Tobacco Information not available 02/06/2020 How Much Tobacco Do You Smoke? 1 PPD Little Less Than 1 Pack Information not available 02/06/2020 General Stress Level High Information not available 07/15/2020 On What Date Was Tobacco Cessation Counseling Provided? 06/17/2021 Information not available 06/17/2021 How Many Years Have You Smoked Tobacco? 25 Information not available 02/06/2020 Do You Or Have You Ever Used Any Other Forms Of Tobacco Or Nicotine? No Information not available 03/25/2021 Sex: Unknown Functional Status Question Answer Note LastModified by Organization D etails LastModified Time Are you able to care for yourself? Yes Information n ot available 02/06/2020 Mental Status None recorded. Family History Relationship Description Onset Age of this Age Resolved Age Notes LastModified by Organization Details LastModified Time Father Myocardial infarction 46 [email or web address] Not available 10/2019 11:33:22 Mother Malignant tumor of lung 46 [email or web address] Not available 02/05 11:33:46 Medical History Condition Response Coronary Artery Disease N Other N Atrial Fibrillation N High Blood Pressure N Depression N COPD N Blood Clots N Anxiety Disorder Y Muscle, Joint, or Bone Problems N Acid Reflux (GERD) N Cancer N Stroke N High Cholesterol N Liver Disease N Headaches N Kidney or Bladder Problems N Thyroid Problems N GI Problems N Skin Problems N Anemia N Heart Attack (UT) Y Diabetes N Seizures/Epilepsy N Asthma N Allergies N Hepatitis N Heart Failure N Osteoporosis N Gynecological History Statement/Question Response Date of Last Mammogram Flow Heavy Date of LMP 05/25/2021 Duration of Flow (days) 7 Age at Menarche 16 Current Control Method None Age at First Child 21 Frequency of Cycle (Q days) 28 Menses Monthly N Date of Last Pap Smear LMP Definite Obstetrics History GPAL:G 1 P 1 0 0 1 Type Value Multiple Births 0 Full Term 1 Induced 0 Spontaneous 0 Premature 0 Living 1 Ectopics 0 Total 1 Past Encounters Encounter ID Performer Location Encounter Start Date Encounter Closed Date Diagnosis/Indication Diagnosis SNOMED-CT Code Diagnosis ICD10 Code Diagnosis Note [id number] ARNAV GATICA [facility] [address] [place] [address] 02/06/2020 09:37:43 02/09/2020 10:46:57 Polycystic ovary syndrome 236070873 E28.2 Patient having period every 3 months to one year. She has to miss work when she gets period due to heavy bleeding. She is not on OCP. She is a smoker and over 35, estrogen is not an option. We discussed risk of endometria l cancer, increase chance of diabetes due to insulin resistance , diet for PCOS, and possible treatments such as metformin for insulin resistance and spironolac tone for hormonal acne and body hair. - patient does not want to be on OCP yet despite discussion and will think about it this month.- needs pap smear Anxiety 28400566 F41.9 patient has been on Celexa for 13 years. In last year she has been taking medication every 5 days to make it last. Disucssed with patient this does not help anxiety if taken in this way. She is having trouble with anxiety and has gotten worse due to pandemic. She is not working and this is really affecting her. increased irritabili ty, anxiety, crying episodes. - celexa refill, take as prescribed , if has trouble with taking everyday we can switch to prozac with longer half life. - advised counseling -Patient was educated on his prescribed medication s, rationale for medication s, dosing indication s, adverse reactions, black box warning, dosing indication s, SE (e.g., decreased libido, weight gain, gynecomast ia, and galactorrh ea) and the risks and benefits. -Call center with questions/ concerns. Go to ER or call 911 for crisis (e.g., suicidal behaviors, suicidal ideations, intent or plan emerge). Additional ly, patient has suicide hotline #. - f/u one month - call with questions Adult [facility] th examination [id number] Z00.01 Patient presents for physical. She would like to have labs. - pap smear- stop smoking- lab work- continue celexa for anxiety- will consider OCP for PCOS for protection against unopposed estrogen Elevated blood-pressure reading without diagnosis of hypertension 092407620 R03.0 Patient feels like her BP has been high lately. Has not taken medication for this. - labs- BP checkAdvis ed to check BP regularly with a goal of <140/90, if BP consistent ly >140/90, advised to contact clinic Discussed DASH diet Advised weight loss and diet is best way to control BP Advised 30 minutes of exercise minimum daily Advised tobacco, alcohol, caffeine all increase BP Advised goal for BP is <140/90 [id number] Jhoana Dill MA [facility] [address] [place] [address] 02/11/2020 09:56:10 02/12/2020 09:25:44 [id number] ARNAV GATICA [facility] [address] [place] [address] 07/15/2020 17:00:36 07/19/2020 11:46:13 Anxiety 46779441 F41.9 patient has been on Celexa for 13 years. In last year she has been taking medication every 5 days to make it last. Disucssed with patient this does not help anxiety if taken in this way. She is having trouble with anxiety and has gotten worse due to pandemic. She is not working and this is really affecting her. increased irritabili ty, anxiety, crying episodes. - celexa refill, take as prescribed , if has trouble with taking everyday we can switch to prozac with longer half life. - advised counseling -Patient was educated on his prescribed medication s, rationale for medication s, dosing indication s, adverse reactions, black box warning, dosing indication s, SE (e.g., decreased libido, weight gain, gynecomast ia, and galactorrh ea) and the risks and benefits. -Call center with questions/ concerns. Go to ER or call 911 for crisis (e.g., suicidal behaviors, suicidal ideations, intent or plan emerge). Additional ly, patient has suicide hotline #. - f/u one month - call with questions Elevated blood-pressure reading without diagnosis of hypertension [id number] R03.0 Patient seen ER for BP and released without medication . Will start on lisinopril 10mg and have her come in for BP check. Patient is VERY anxious about taking medication . BP 150/100 which is improved from 210/120. Still not at target. She did not take medication until after midnight due to anxiety. Patient is to check BP over the weekend and f/u sunday. She is advised that elevated BP puts her at risk of stroke,UT, kidney damage ect. She is advised on signs and symptoms to watch for over the weekend. - labs- BP checkAdvis ed to check BP regularly with a goal of <140/90, if BP consistent ly >140/90, advised to contact clinic Discussed DASH diet Advised weight loss and diet is best way to control BP Advised 30 minutes of exercise minimum daily Advised tobacco, alcohol, caffeine all increase BP Advised goal for BP is <140/90 [id number] ARNAV GAT[facility] [address] [place] [address] 07/16/2020 09:54:46 07/16/2020 14:34:15 [id number] ARNAV GAT[facility] [address] [place] [address] 07/27/2020 10:04:46 07/28/2020 09:45:56 Viral gastroenteritis [id number] A08.4 Patient with four days of diarrhea and abdominal pain needs letter for work. She is no longer having symptoms. denies fever, chills, mucus or blood in stool - bland diet- hydration [id number] ARNAV GATICA [facility] [address] [place] [address] 08/03/2020 10:06:42 08/09/2020 14:33:36 Elevated blood-pressure reading without diagnosis of hypertension 846683803 R03.0 patient skipping lisinopril due to cough. Will switch to losartan, She is to monitor BP over the week and f/u within a few days with BP readings.- labs- BP checkAdvis ed to check BP regularly with a goal of <140/90, if BP consistent ly >140/90, advised to contact clinic Discussed DASH diet Advised weight loss and diet is best way to control BP Advised 30 minutes of exercise minimum daily Advised tobacco, alcohol, caffeine all increase BP Advised goal for BP is <140/90 [id number] ARNAV GATICA [facility] [address] [place] [address] 03/03/2021 16:07:03 03/08/2021 07:26:18 Goiter 4850286 E04.9 Myocardial infarction 22 628949 I21.9 RCA 100% occlusion. cleared and has drug stent placed. following with cardiology and complaint with medication s medication regiment: metoprolol 25, ticagrelor 90 mg twice per day. takes at 6, rosuvastat in , lisinopril 5 mg, aspirin 81 Advised to check BP regularly with a goal of <140/90, if BP consistent ly >140/90, advised to contact clinic Discussed DASH diet Advised weight loss and diet is best way to control BP Advised 30 minutes of exercise minimum daily Advised tobacco, alcohol, caffeine all increase BP Advised goal for BP is <140/90 [id number] Clari Lakhani [facility] [address] [place] [address] 03/22/2021 11:26:40 03/22/2021 11:43:46 [id number] ARNAV G[facility] [address] [facility] [address] 03/25/2021 08:15:15 03/28/2021 06:20:54 Hyperlipidemia 41133491 E78.5 Myocardial infarction 22 696403 I21.9 patient feeling tired but still attending her cardiac rehab. next cardiology apt coming up April 07. medication regiment: metoprolol 25, ticagrelor 90 mg twice per day. takes at 6, rosuvastat in , lisinopril 5 mg, aspirin 81 Advised to check BP regularly with a goal of <140/90, if BP consistent ly >140/90, advised to contact clinic Discussed DASH diet Advised weight loss and diet is best way to control BP Advised 30 minutes of exercise minimum daily Advised tobacco, alcohol, caffeine all increase BP Advised goal for BP is <140/90 [id number] ARNAV GAT[facility] [address] [place] [address] 05/10/2021 16:10:21 05/12/2021 13:35:42 Dizziness [id number] R42 Patient complains of chronic dizziness with ear pooping and pressure. This has been going on before she has an UT but is now worse. She has not tried allergy pills and denies sinus pressure. Happens sitting still or with position movement. Has been told she had vertigo many years ago. Denies ear discharge, fevers, syncope. - notify Cardiologi st at upcoming appointmen t- ENT- labs have been normal Hemorrhoids 99142496 K64 .9 Constipation 62277833 K5 9.00 chronic constipati on. Stooling every four days. She drinks water, cut out fast foods, fried foods and sugary drinks. Eats veggies and fruits. She also c/o bloating and gas. Denies diarrhea, blood in stool ,mucus. No hx of colonoscop y. Seasonal a llergic rhinitis [id number] J30.2 [id number] ARNAV GATICA [facility] [address] [place] [address] 06/17/2021 08:07:41 06/20/2021 08:04:13 Dizziness [id number] R42 refill Hypertensive disorder 38 835449 I10 patient due for labs- continue following cardiology - dash diet- 30 mins activity 5x week- monitor BP at home [id number] Noman Anguiano DO [facility] [place] [address] 09/28/2021 16:28:15 09/29/2021 09:44:49 Gastroesophageal reflux disease without esophagitis 210024560 K21.9 Coronary arteriosclerosis 47624192 I25.10 Body mass index 30+ - obesity 360176059 Z68.38 Anxiety 79121531 F41.9 Myocardial infarction 22 198037 I21.9 February 21, 2021 Polycystic ovary syndrome 722955806 E28.2 Internal hemorrhoids 904 51707 K64.8 Increase fiber intake Health Concerns Section Related Observation LastModified by Organization Detai ls LastModified Time None Recorded Concern Status LastModified by Organization Details LastModified Time None Recorded Advance Directives Directive N: Payers Encounter Date Sequence Insurance Name Policy Number Policy Hernandez Covered Member ID Hernandez Member ID Guarantor Name 03/22/2021 1 [facility] (MEDICAID REPLACEMENT - HMO) [id number] Prem Rao [id number] Prem Rao 03/25/2021 1 [facility] (MEDICAID REPLACEMENT - HMO) [id number] Prem Rao [id number] Prem Rao 05/10/2021 1 [employer] [place] 2020 (MEDICAID REPLACEMENT - HMO) Prem Rao [id number] Prem Rao 06/17/2021 1 [employer] [place] - [place]) Prem Rao [id number] Prem Rao 09/28/2021 1 [employer] [place] - [place]) Prem Rao [id number] Prem Rao Notes Date Note Type Note Provider Name and Address Organization Details Recorded Time 1 text/html Patient presents for one month f/u Patient continues feeling run down and ragged after her heart attack. She is doing cardiac rehab and has gone 5x. MWT she goes in. doing well. weight 249. had cardiology appointment today but no longer takes her insurance. 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 She also states her meication for cholesterol is better tolerated by cutting half. 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 ARNAV GATICA Attn: Accounting,[address] [place], [address], [facility] 03/25/2021 16:55:13 1 text/html ConstipationReported bypatient.Quality:hard;de creased frequency Severity:moderate Duration:present for 1-6 months Contextstress Associated Symptoms:excess gas;bloatingDizzinessRepo rted bypatient.Severity:no effect on daily activities Context:non-smoker Associated Symptoms:no double vision; no dysphagia; no slurred speech; no blurred vision; no vision changes; no foggy vision; no blindness; no spots in field of vision; no eye pain; no hearing loss; no difficulty understanding speech; no ear discharge; no ringing in the ears; no pressure in ears; no earache; no syncope; no loss of consciousness; no headache; no head pressure; no vomiting; no weak limbs; no facial numbness; no difficulty with speech; no tingling around the mouth; normal stools; no sensation of heart racing; no history of falls; no history of hypertension; no history of diabetes; no seizure; no facial weakness; no tingling of fingers; no audible eye movements;popping noise in the ears;anxiety or unsteady feelings;nausea Prem presents for multiple complaints Patient has has hemorrhoids since giving and feels like this may be causing her constipation. She has cut out fast food, added daily veggies and drinks plenty of water. She also feels bloating Patient also has dizziness and popping ears. This has been going on before she has an UT but is now worse. She has not tried allergy pills and denies sinus pressure. Happens sitting still or with position movement. Has been told she had vertigo many years ago. Denies ear discharge, fevers, syncope. ARNAV GATICA Attn: Accounting,[address] [place], [address], [facility] 05/12/2021 10:21:27 1 text/html Prem presents for f/u and labs Patient states dizziness has improved since stopping Lisinopril. She continues following with cardiology. Drinks 16.9 fl oz of soda per day. She still follows her diet. She started a new job and it is low stress. She is sleeping well and tries to control anxiety without medication. ARNAV GATICA Attn: Accounting[address] [place], [address], [facility] 06/19/2021 19:42:51 1 text/html Heartburn for her whole life. Has nocturnal regurgitation. famotidine helps a bit. Believes she has hemorrhoids. They pop out. Noman Anguiano, DO [address] [place], [address], [facility] 09/28/2021 17:35:04 OBGyn Episode Ob Episode Information Episode Created Date Number of Fetuses Patient Bloodtype Patient rh Status Prepregnancy Weight lbs Domestic Partner Domestic Partner Phone Father Name Development Consultant Status 02/06/20 20 1 CLOSED Fetus Data First Name Last Name Admitted to NICU Weight (g) Sex Living Outcome Pediatric Complications Fetus ID Race Codes Race Delivery Type M Full Term [id number] Esau Calculation Initial Esau Date Initial Exam [...] Complications Tubal Sterilization Discharge Date Comments 2 Discharge Information Feeding Method Contraceptive Method Maternal HG B and HCT Levels
[2024-12-25 22:46] VITALS: BP 178/95; PULSE 91; RESP 17; TEMP 36.3; O2SAT 97
[2024-12-25 23:06] LABS: Basophils Absolute Auto 0.1 K/mm3 (0.0-0.1); Basophils Percent Auto 0.6 % (0.2-1.2); Eosinophils Absolute Auto 0.2 K/mm3 (0-0.3); Eosinophils Percent Auto 1.9 % (0-4.4); Hematocrit 39.6 % (37.0-47.0); Hemoglobin 13.2 g/dL (12.0-15.0); Immature Granulocyte Absolute 0.02 K/mm3 (0.00-0.031); Immature Granulocyte Percent A 0.2 % (0-0.5); Lymphocytes Absolute Auto 2.46 K/mm3 (0.9-3.2); Lymphocytes Percent Auto 26.3 % (18.3-44.2); Mean Corpuscular HGB Conc 33.3 g/dl (32-36); Mean Corpuscular Hemoglobin 29.8 pg (26-34); Mean Corpuscular Volume 89.4 fl (80-100); Monocytes Absolute Auto 0.6 K/mm3 (0.1-0.6); Monocytes Percent Auto 6.4 % (2.6-8.5); Neutrophils Percent Auto 64.6 % (45.5-73.1); Platelet Count Result 226 k/mm3 (150-375); Red Blood Count 4.43 M/mm3 (4.2-5.4); Red Cell Distribution Width 13.4 % (11.5-14.5); White Blood Count 9.4 K/mm3 (4.5-10.0)
[2024-12-25 23:16] LABS: Alanine Aminotransferase 17 U/L (6-35); Albumin Level 4.3 g/dL (3.5-5.1); Alkaline Phosphatase 59 U/L (38-126); Anion Gap 15 mmol/L (4-12); Aspartate Amino Transferase 21 U/L (14-36); Bilirubin,Total 0.5 mg/dL (0.2-1.3); Blood Urea Nitrogen 12 mg/dL (7-17); Calcium 9.2 mg/dL (8.4-10.2); Carbon Dioxide 17 mmol/L (22-30); Chloride 108 mmol/L (98-107); Estimated CRCL calculation 108 ml/min; Estimated Glomerular Filt Rate > 60; Glucose 160 mg/dL (65-110); Lipase 123 U/L (23-300); Potassium 3.8 mmol/L (3.4-5.0); Sodium 140 mmol/L (137-145)
[2024-12-25 23:17] LABS: INR 0.9; Prothrombin Time 12.7 Seconds (11.1-14.7)
[2024-12-25 23:18] LABS: Partial Thromboplastin Time 24.3 Seconds (22.3-36.8)
[2024-12-25 23:28] LABS: Troponin I < 0.012 ng/mL (0.000-0.034)
[2024-12-26] VITALS (61 sets, daily range): BP systolic 124–174; BP diastolic 70–108; PULSE 65–97; RESP 12–24; TEMP 36.4–37.1; O2SAT 95–99; BMI 38.1
--- OUTSIDE RECORDS SUMMARY | 2024-12-26 00:51 | XMS_ITS | Clinical Summary ---
Author Organization [facility] [address] Address [address] [place] [address] Care Team Providers Care Tin Container Straightener Name Role Phone Aleida Hu Primary Care [...] unspecified 04/24/2023 Body mass index 40.0-44.9, adult ([facility]) 01/09 Morbid (severe) obesity due to excess calories 0 02/28/2022 Coronary artery disease invo lving cahuilla coronary artery of cahuilla heart without angina pectoris 05/12/2021 History of coronary artery stent placement 05/12 Surgical History Surgery Date Site/Laterality Comments CORONARY ANGIOPLASTY 02/21/2021 Medical History Medical History Date Comments Coronary artery disease ST elevation myocardial infarction (STEMI) of in ferior wall ([facility]) 02/21/2021 PCOS (polycystic ovarian syndrome) Hypertension GERD [...] by Sidney Martin M.D., MD: Report ID: [id number] Reading Location: [facility] Narrative 12/20/2022 11:41 AM [...] Relevant to Health Maintenance Insurance T SIG [id number] [place] [id number] [employer] Care Teams Tin Container Straightener Relationship Specialty Start Date End Date Aleida Hu PA PCP - General Physician Research Rn Spec 02/21/21
--- OUTSIDE RECORDS SUMMARY | 2024-12-26 00:51 | XMS_ITS | Referral Summary ---
Author Organization [facility] [address] Address [address] [place] [address] Care Team Providers Care Boilermaker Helper Name Role Phone Aleida Hu Primary Care [...] 0 02/28/2022 Coronary artery disease invo lving jamul coronary artery of jamul heart without angina pectoris 05/12/2021 History of [...] by Sidney Martin M.D. MD: Report ID: [id number] Reading Location: [facility] Narrative 12/20/2022 11:41 AM CDT EXAM [...] Relevant to Health Maintenance Insurance [place] SIG [id number] [place] [id number] [employer] Care Teams Boilermaker Helper Relationship Specialty Start Date End Date Aleida Hu PA PCP - General Physician Milk Receiver Tank Truck 02/21/21
--- OUTSIDE RECORDS SUMMARY | 2024-12-26 00:51 | XMS_ITS | Patient Health Record ---
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 Stress is when someone feels tense, nervous, anxious, or can\t sleep at night because their mind is troubled Quite a bit In the past year have you sp ent more than 2 nights in a row in a shelter, senior living, halfway center, or juvenile correctional facility? No Are [...] W/U Status Risk Notes Problem Tobacco user (685783360) Nicotine dependence, unspecified, uncomplicated (F17.200) Active confirmed Problem Generalized anxiety disorder (81973720) Generalized anxiety disorder (F41.1) 07/19/20 Active confirmed Problem Posttraumatic stress disorder (75047925) PTSD (post-traumatic stress disorder) (F43.10) 07/19/20 Active confirmed Problem Panic disorder with agoraphobia (04239651) Panic disorder with agoraphobia (F40.01) 07/19/20 Active confirmed Encounters Encounter Location Date Provider Diagnosis [facility] [address] [place] [address] 06/27/2024 Kenriandressa JiménezBaker Nicotine dependence, unspecified, uncomplicated F17.200 ; Panic disorder with agoraphobia F40.01 ; Generalized anxiety disorder F41.1 and PTSD (post-traumatic stress disorder) F43.10 [facility] [address] [place] [address] [address] 07/29/2024 Kyriandressa JiménezBaker Nicotine dependence, unspecified, uncomplicated F17.200 ; Panic disorder with agoraphobia F40.01 ; Generalized anxiety disorder F41.1 and PTSD (post-traumatic stress disorder) F43.10 [facility] [address] [place] [address] [address] 08/29/2024 Kenria Baker Nicotine dependence, unspecified, uncomplicated F17.200 ; Panic disorder with agoraphobia F40.01 ; Generalized anxiety disorder F41.1 and PTSD (post-traumatic stress disorder) F43.[address] [address] 01/31/2024 Cynthia Kraftn [facility] [address] [place] [address] 07/01/[address] [address] 08/20/2024 Dino Israel Assessments Encounter Date Diagnosis [...] who presents today over phone, in the [facility] for psychiatric f/u. Previously seen on [...] or be administered own oral medications per [facility] protocols. Provided informed consent with understanding of [...] who presents today over phone, in the [facility] for psychiatric f/u. Previously seen on 06/27/2024 [...] or be administered own oral medications per [facility] protocols. Provided informed consent with understanding of [...] who presents today over phone, in the [facility] for psychiatric f/u. Previously seen on 11/06/2023 [...] or be administered own oral medications per [facility] protocols. Provided informed consent with understanding of [...] Date MEDICAID [address] [place] [address] [id number] Jalen Prem Self - patient is the insured 3 [employer] [address] [address] [place] [address] [id number] Prem Rao Self - patient is the insured 3 3 MEDICAID [employer] [address] [place] [address] [id number] Prem Rao Self - patient is the insured 3 Medical (General) History Medical History History ICD Code heart disease Surgical History Surgery Date(Month/Year) stent in heart 2020 stent in heart 2021 Hospitalization History Reason Date(Month/Year) child 2001 heart attack 12/2021 heart attack 02/2021
--- OUTSIDE RECORDS SUMMARY | 2024-12-26 00:51 | XMS_ITS ---
Author Organization [facility] Address [address] [place] [address] Care Team Providers Care Marine Steward Name Role Phone Cynthia Baker Primary Care Provider REASON FOR VISIT 2 Week F/U Encounters Encounter Location Date Provider Diagnosis [facility] [address], [place] [address] 09/12/2024 Cynthia Baker Plan Of Treatment No Information Progress Notes * NATASHA GeraldDanielaOB:1980 (44 yo F)Acc No.[id number]:09/12/2024 UNLOCKED PROGRESS NOTE Patient: Prem PHAM Provider: EZEKIEL Allan :1980 A ge:44 Y S ex:Female Date:09/12/2024 Address:[address] [place], [place] [address] Subjective: * Chief Complaints: * 1 . 2 Week F/U. * Medical History: Objective: * Vitals: Assessment: Plan: * Treatment: * * Electronic signature of Tawny Baker on 12/26/2024 at 12:51 AM CDT Sign off status: Pending * Provider: EZEKIEL Allan Date: 1 11/13/2023 Generated for Chris mendenhall/Kirstin/eTransmitting on: 0 12/26/2024 12:51 AM CDT
--- OUTSIDE RECORDS SUMMARY | 2024-12-26 00:52 | XMS_ITS ---
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 Stress is when someone feels tense, nervous, anxious, or can\t sleep at night because their mind is troubled Quite a bit In the past year have you sp ent more than 2 nights in a row in a assisted, skilled nursing, long term center, or juvenile correctional facility? [...] years Encounters Encounter Location Date Provider Diagnosis [address] [address] 08/29/2024 Cynthia Baker Nicotine dependence, unspecified, uncomplicated [...] who presents today over phone, in the [facility] for psychiatric f/u. Previously seen on [...] or be administered own oral medications per [facility] protocols. Provided informed consent with understanding of [...] who presents today over phone, in the [facility] for psychiatric f/u. Previously seen on [...] or be administered own oral medications per [facility] protocols. Provided informed consent with understanding of [...] Notes * Roberth KAUR:1980 (43 yo F)Acc No.[id number]:08/29/2024 Patient: Prem PHAM Provider: EZEKIEL Allan :1980 A ge:43 Y S ex:Female Date:08/29/2024 Address:[address] [place], [place] [id number] Subjective: * Chief Complaints: * 1 Month Psych F/U & Med Refill * HPI: P sych F/U: Changes since last visit?: S shelley yesterday had a bad panic attack There are reasons and called the ambulance it wouldn't go away and went on a heart monitor and it wasn't my heart . States she is ready for medication. Has a trip planned for [place] next month didn't know how I was going to do it . Son is going to be graduating from college. I have to do it . as scared as I am and as much as I don't want to . [facility] got a new cat that is [...] I nterpretation M ild Depression S creening: Hopkins Suicide Severity Rating Scale (LF) D o [...] phone, visiting friends or family, going to evangelical or club meetings) M ore than 5 times a week H ow stressed are you? Stress is when someone feels tense, nervous, anxious, or can\t sleep at night because their mind is troubled Q uite a bit I n the past year have you spent more than 2 nights in a row in a assisted, skilled nursing, long term center, or juvenile correctional facility? N o [...] who presents today over phone, [facility]. Previously seenon 4and during [...] or be administered own oral medications per [facility] protocols. Provided informed consent with understanding of side effects, adverse effects, risks and benefits as well as alternative treatments as previously discussed and with the above recommended medications & other aspects of the treatment program. Agrees to return sooner if symptoms worsen or suicidal or homicidal ideations occur. * Procedure Codes: * Follow Up: 2 Weeks (Reason: med f/u) * * PRINTS TRIMMER Sign off status: Completed true * Provider: JUAN AllanP Date: 10/29/2023 Generated for Chris Bautista/Alcides on: 0 12/26/2024 12:51 AM CDT History and Physical Notes * HPI [...] for medication. Has a trip planned for [place] next month didn't know how I was [...] She denies any feelings of SI/HI. Screening Hopkins Suicide Sev erity Rating Scale (LF) Do [...] deficits APPEARANCE Appropriate ATTITUDE AND BEHAVIOR Cooperative, cable layer tive MEMORY Adequate EYE CONTACT Good AFFECT [...]
--- OUTSIDE RECORDS SUMMARY | 2024-12-26 00:52 | XMS_ITS | Clinical Summary ---
Author Organization [facility] Address [address] [place] [address] Care Team Providers Care Assistant Store Manager Sales Name Role Phone None, Provider MD Primary [...] age to complete this topic Care Teams Assistant Store Manager Sales Relationship Specialty Start Date End Date None, Provider, PCP - General 05/03/19
--- OUTSIDE RECORDS SUMMARY | 2024-12-26 00:52 | XMS_ITS ---
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 Stress is when someone feels tense, nervous, anxious, or can\t sleep at night because their mind is troubled Quite a bit In the past year have you sp ent more than 2 nights in a row in a nursing home, detention, [place] [facility], or juvenile correctional facility? No Are [...] years Encounters Encounter Location Date Provider Diagnosis [address] [place] [address] 08/20/2024 Dino Israel Plan Of Treatment No Information Progress Notes * Mina KAUROB:1980 (43 yo F)Acc No.[id number]:08/20/2024 Patient: Prem PHAM :1980 A ge:43 Y S ex:Female Address:[address] [place] [address] Subjective: * Chief Complaints: * P RAPARE [...] phone, visiting friends or family, going to sikh or club meetings) M ore than 5 times a week, H ow stressed are you? Stress is when someone feels tense, nervous, anxious, or can\t sleep at night because their mind is troubled Quite a bit, I n the past year have you spent more than 2 nights in a row in a nursing home, detention, [place] [facility] [place], or juvenile correctional facility? N o, [...] Date: Generated for Chris mendenhall/Kirstin/Alcides on: 0 12/26/2024 12:52 AM CDT
--- NOTE | 2024-12-26 03:16 | ECG_ITS ---
Test Date: 2024-12-26 03:22:21 Measurements Intervals [place] Rate: 70 P: 46 ID: [id number] QRS: 59 QRSD: 97 T: 61 QT: 399 QTc: 432 Interpretive Statements SINUS RHYTHM Compared to ECG 12/25/2024 22:57:40 No significant changes Electronically Signed On 12-26-2024 18:30:50 CDT by Roger Turcios M.D.
[2024-12-26 03:56] LABS: Troponin I 0.066 ng/mL (0.000-0.034)
[2024-12-26 04:26] LABS: BEDSIDEPREGUCG Negative (Negative)
--- NOTE | 2024-12-26 04:47 | ED_ITS ---
HPI - General Adult General Chief complaint: Chest Pain Stated complaint: Intermittent CP since this Am Time Seen by Provider: 12/26/24 03:30 History of Present Illness HPI narrative: Patient is a [age]-year-old female who presents emergency department chief complaint of intermittent chest discomfort. Patient reports throughout the day she has had a burning like sensation her chest that radiates to her left shoulder patient states the pain would resolve patient took a 324 mg of aspirin earlier patient reports was given nitro EN route patient reports she has had prior [place] in 2020 and 2021 patient states that pain is almost gone but does report that she has felt a little lightheaded and dizzy at times. Patient also reports a uncomfortable feeling in the epigastric region Related Data Home Medications ?Medication ?Instructions ?Recorded ?Confirmed ?Last Taken ?Type famotidine 40 mg tablet 20 mg PO BID PRN indegestion 07/11/20 12/15/21 12/15/21 History clopidogrel 75 mg tablet (Plavix) 75 mg PO DAILY 04/13/21 05/30/22 12/15/21 08:00 History acetaminophen 500 mg tablet 1,000 mg PO Q6H PRN Pain 12/15/21 12/15/21 Unknown History atorvastatin 40 mg tablet 80 mg PO HS 12/15/21 12/15/21 12/15/21 History lisinopril 5 mg tablet 5 mg PO HS 12/15/21 12/15/21 12/15/21 History Allergies Allergy/AdvReac Type Severity Reaction Status Date / Time erythromycin base Allergy Unknown Verified 12/25/24 22:43 Review of Systems 2 Review of Systems: A 10 system review of systems was completed on the patient and is negative except for what is stated in the HPI. Nursing and ancillary documentation was reviewed. [facility] Past Medical History Medical History Essential hypertension Polycystic ovarian syndrome Gastroesophageal reflux disease Coronary artery disease (~02/2017) STEMI (ST elevation myocardial infarction) (02/2021) Tobacco abuse Obesity Surgical History Surgical History History of cardiac catheterization (02/21/21) And 12/12/2021 History of coronary artery stent placement 02/21/2021: Drug-eluting stent to the right coronary artery 12/12/2021 3.5 x 15 mm drug-eluting stent to the LAD due to 95% stenosis proximal LAD Family History Family History Father CAD (coronary artery disease) Acute myocardial infarction Hypertension Daughter No problems noted. Mother Lung cancer Cancer Sibling Hypertension Acute myocardial infarction Social History Social History Social History: Surrogate decision maker: Vonnie Laird, sister. Code status: Full code. Smoking packs per day: 1.5 Smoking cigarettes per day: 30.0 Years smoked: 26 Smoking pack-years: 39.00 Smoking status: Former smoker Tobacco type: cigarettes Smoking end date: 12/09/21 Alcohol intake: never Substance use: never Spiritual care concerns: No Exam 2 Narrative: GENERAL: Well-appearing, well-nourished, and in no acute distress. HEAD: Normocephalic, atraumatic. EYES: PERRLA and EOMI. ENT: Nares clear, no rhinorrhea or epistaxis. Mucous membranes moist. NECK: Supple. CHEST: Clear to auscultation. No respiratory distress. HEART: Regular rate and rhythm. No murmur heard. Normal peripheral pulses. ABDOMEN: Soft, mild tenderness to palpation in the epigastric, nondistended, normal active bowel sounds. EXTREMITIES: Normal range of motion. No edema. SKIN: Warm, dry, no rash. NEURO: No focal deficits. Alert and oriented x3. PSYCH: Normal mood and affect. Course Vital Signs Vital signs: Vital Signs Temperature 36.3 C L 12/25/24 22:46 Pulse Rate 91 12/25/24 22:46 Respiratory Rate 17 12/25/24 22:46 Blood Pressure 178/95 H 12/25/24 22:46 Pulse Oximetry 97 12/25/24 22:46 Oxygen Delivery Room Air 12/25/24 22:46 Temperature 36.6 C 12/26/24 03:00 Pulse Rate 77 12/26/24 03:00 Respiratory Rate 21 H 12/26/24 03:00 Blood Pressure 138/87 12/26/24 03:00 Pulse Oximetry 99 12/26/24 03:02 Oxygen Delivery Room Air 12/26/24 03:02 Medical Decision Making MDM Narrative Medical decision making narrative: Differential diagnosis includes ACS, NSTEMI, atypical chest pain, Initial troponin was -3 hour repeat troponin was 0.066 Patient has had aspirin Patient is tender in the epigastric region CT scan of the abdomen pelvis has ordered Patient will be admitted to the hospital further care Vital Signs Vital Signs: Vital Signs Temperature 36.3 C L 12/25/24 22:46 Pulse Rate 91 12/25/24 22:46 Respiratory Rate 17 12/25/24 22:46 Blood Pressure 178/95 H 12/25/24 22:46 Pulse Oximetry 97 12/25/24 22:46 Oxygen Delivery Room Air 12/25/24 22:46 Temperature 36.6 C 12/26/24 03:00 Pulse Rate 77 12/26/24 03:00 Respiratory Rate 21 H 12/26/24 03:00 Blood Pressure 138/87 12/26/24 03:00 Pulse Oximetry 99 12/26/24 03:02 Oxygen Delivery Room Air 12/26/24 03:02 Lab Data 12/25/24 22:58 12/25/24 22:58 Labs: Lab Results 12/25/24 12/26/24 12/26/24 Range/Units 22:58 03:21 04:24 WBC 9.4 (4.5-10.0) K/mm3 RBC 4.43 (4.2-5.4) M/mm3 Hgb 13.2 (12.0-15.0) g/dL Hct 39.6 (37.0-47.0) % MCV 89.4 (80-100) fl MCH 29.8 (26-34) pg MCHC 33.3 (32-36) g/dl RDW 13.4 (11.5-14.5) % Plt Count 226 (150-375) k/mm3 MPV 10.0 (7.4-10.4) fl Immature Gran % (Auto) 0.2 (0-0.5) % Neut % (Auto) 64.6 (45.5-73.1) % Lymph % (Auto) 26.3 (18.3-44.2) % [place] % (Auto) 6.4 (2.6-8.5) % Eos % (Auto) 1.9 (0-4.4) % Baso % (Auto) 0.6 (0.2-1.2) % Lymph # (Auto) 2.46 (0.9-3.2) K/mm3 [place] # (Auto) 0.6 (0.1-0.6) K/mm3 Eos # (Auto) 0.2 (0-0.3) K/mm3 Baso # (Auto) 0.1 (0.0-0.1) K/mm3 Abs Immat Gran (auto) 0.02 (0.00-0.031) K/mm3 Absolute Neuts (auto) 6.0 (1.3-6.7) K/mm3 Absolute Nucleated RBC 0.000 (0.0-0.012) K/mm3 Nucleated RBC % 0.0 (0.0-0.2) % PT 12.7 (11.1-14.7) Seconds INR 0.9 APTT 24.3 (22.3-36.8) Seconds Sodium 140 (137-145) mmol/L Potassium 3.8 (3.4-5.0) mmol/L Chloride 108 H (98-107) mmol/L Carbon Dioxide 17 L (22-30) mmol/L Anion Gap 15 H (4-12) mmol/L BUN 12 (7-17) mg/dL Creatinine 0.81 (0.7-1.0) mg/dL Estim Creat Clear Calc 108 ml/min Estimated GFR > 60 (59 - ) Glucose 160 H (65-110) mg/dL Calcium 9.2 (8.4-10.2) mg/dL Total Bilirubin 0.5 (0.2-1.3) mg/dL AST 21 (14-36) U/L ALT 17 (6-35) U/L Alkaline Phosphatase 59 (38-126) U/L Troponin I < 0.012 0.066 H* D (0.000-0.034) ng/mL Total Protein 7.0 (6.3-8.2) g/dL Albumin 4.3 (3.5-5.1) g/dL Lipase 123 (23-300) U/L POC Urine HCG, Qual Negative (Negative) Discharge Plan Discharge Clinical Impression: Elevated troponin Chest pain Qualifiers: Chest pain type: unspecified Qualified Code(s): R07.9 - Chest pain, unspecified Patient Disposition: Still a Patient Condition: Stable Patient Language: [place] Prescriptions: No Action famotidine 40 mg Tablet 20 mg PO BID PRN (Reason: indegestion) nitroglycerin [Nitrostat] 0.4 mg Tablet, Sublingual 0.4 mg sublingual Q5MIN PRN (Reason: Chest Pain) Qty: 30 5RF aspirin [Children's Aspirin] 81 mg Tablet,Chewable 81 mg PO DAILY@0800 Qty: 30 5RF meclizine 25 mg Tablet 25 mg PO QID PRN (Reason: Dizziness) Qty: 30 0RF amlodipine [Norvasc] 5 mg Tablet 10 mg PO NOON Qty: 30 1RF metoprolol tartrate 25 mg Tablet 25 mg PO Q12HR Qty: 60 1RF lansoprazole 15 mg capsule,delayed release(DR/EC) 15 mg PO DAILY Qty: 30 0RF amoxicillin-pot clavulanate 875-125 mg tablet 1 tablet PO Q12H Qty: 10 0RF clopidogrel [Plavix] 75 mg Tablet 75 mg PO DAILY Patient Comments: pt states she does not like the way she feels on them atorvastatin 40 mg tablet 80 mg PO HS lisinopril 5 mg tablet 5 mg PO HS acetaminophen 500 mg Tablet 1,000 mg PO Q6H PRN (Reason: Pain) lorazepam [Ativan] 0.5 mg tablet 0.5 mg PO TID PRN (Reason: anxiety) Qty: 20 0RF meclizine 25 mg tablet 25 mg PO TID PRN (Reason: dizziness) Qty: 30 0RF penicillin V potassium 500 mg tablet 500 mg PO Q6H 10 Days Qty: 40 0RF ibuprofen 800 mg tablet 800 mg PO TID Qty: 30 0RF amoxicillin-pot clavulanate 875-125 mg tablet 1 tablet PO Q12H 7 Days Qty: 14 0RF Follow-up/Referrals: Fritz,ARNAV Gomez [Primary Care Provider] - Time of Disposition: 04:48
--- NOTE | 2024-12-26 04:58 | ECG_ITS ---
Test Date: 2024-12-26 05:10:34 Measurements Intervals [place] Rate: 77 P: 43 TX: 152 QRS: 56 QRSD: 91 T: 53 QT: 382 QTc: 433 Interpretive Statements SINUS RHYTHM Compared to ECG 12/26/2024 03:22:21 No significant changes Electronically Signed On 12-26-2024 18:31:46 CDT by Roger Turcios M.D.
[2024-12-26] MEDS: ENOXAPARIN 120 MG/0.8 ML SYRINGE SUB-Q (05:05)
[2024-12-26 05:43] LABS: Troponin I 0.079 ng/mL (0.000-0.034)
--- NOTE | 2024-12-26 09:10 | PC.NURSE ---
This patient, Prem Rao, was admitted to IMU Room 212-01. Patient/family oriented to hospital policies and general routines including ID bracelet, bed and alarms, visiting hours, pain management, procedures, bathroom and other care routines, personal items, smoking policy, room service/diet, and visiting hours. Information on how to activate the Rapid Response Team has been discussed. Patient/Family are encouraged to report perceived risks to care and to ask questions if they do not understand what they are told or what they should do.
[2024-12-26] MEDS: ASPIRIN 81 MG CHEWABLE TABLET PO (09:38)
--- NOTE | 2024-12-26 11:49 | PM.CNCAR ---
Assessment and Plan Assessment and plan (1) NSTEMI (non-ST elevated myocardial infarction): Code(s): I21.4 - Non-ST elevation (NSTEMI) myocardial infarction Status: Acute (2) Coronary artery disease: Onset Date: ~02/2017 Code(s): I25.10 - Atherosclerotic heart disease of [place] coronary artery without angina pectoris Status: Acute (3) Hypertension: Qualifiers: Hypertension type: unspecified Qualified Code(s): I10 - Essential (primary) hypertension Code(s): I10 - Essential (primary) hypertension Status: Acute (4) Hyperlipidemia: Code(s): E78.5 - Hyperlipidemia, unspecified Status: Acute Plan 1. NSTEMI 2. Coronary artery disease s/p PCI to the RCA and LAD 3. Hypertension 4. Hyperlipidemia with statin intolerance PLAN: -Given chest pain and elevated troponins, recommend LHC to rule out obstructive CAD. Discussed with patient who is agreeable. Will plan for LHC today. -Continue ASA 81mg once daily. -Can continue home dose of Losartan for hypertension. -Recommend resuming Repatha as outpatient. Will need to follow up closely with Dr. Gomes as outpatient. -Further recommendations and plan pending results of LHC. History of Present Illness History of Present Illness Consult date/time: 12/26/24 11:49 Requesting physician: Mauri Gray MD Consult reason: chest pain Reason For Visit: Chest pain, elevated troponin Narrative: Prem is a 44 year old female with known premature coronary artery disease. Had an acute inferior wall [place] in February 2021 s/p PCI to the RCA. Cardiac catheterization in December 2021 showed new high-grade 95% stenosis in the LAD s/p PCI with HOMAR x 1. Was following with Dr. Gomes, but has not seen him since April 2023. Prem states that her panic attacks / severe anxiety has made it difficult for her to follow up with doctors. Had stopped taking ASA a while back. Per Dr. Gomes's last clinic note, she was unable to tolerate statins, and was started on Repatha, however, patient states the only medications she takes now are her Losartan and Famotidine. Patient states about 1.5 hours after eating yesterday, she developed substernal chest pain. Has issues with her stomach and had felt discomfort in her stomach. Chest pain lasted for about 20-30 minutes. Resolved. Recurred later in the evening and resolved when given SL NTG by EMS. Initial troponin negative, repeat elevated at 0.066, with third troponin increased to 0.079. CXR without acute findings. EKGs with sinus rhythm without ischemic changes. She is tearful upon my examination. Review of Systems Review of Systems: All systems reviewed & are unremarkable except as noted in HPI and below (HPI) FORMERLY [facility], [facility] Past Medical History Medical History Essential hypertension Polycystic ovarian syndrome Gastroesophageal reflux disease Coronary artery disease (~02/2017) STEMI (ST elevation myocardial infarction) (02/2021) Tobacco abuse Obesity Surgical History Surgical History History of cardiac catheterization (02/21/21) And 12/12/2021 History of coronary artery stent placement 02/21/2021: Drug-eluting stent to the right coronary artery 12/12/2021 3.5 x 15 mm drug-eluting stent to the LAD due to 95% stenosis proximal LAD Family History Family History Father CAD (coronary artery disease) Acute myocardial infarction Hypertension Daughter No problems noted. Mother Lung cancer Cancer Sibling Hypertension Acute myocardial infarction Social History Social History Social History: Surrogate decision maker: Vonnie Laird, sister. Code status: Full code. Smoking packs per day: 1.5 Smoking cigarettes per day: 30.0 Years smoked: 26 Smoking pack-years: 39.00 Smoking status: Former smoker Tobacco type: cigarettes Smoking end date: 12/09/21 Alcohol intake: never Substance use: never Substance use type: does not use Do You Feel Safe in your Home?: Yes Lack of Transportation: No Lack of Food: Never True Current Housing: I Have Housing Concerned About Future Housing: No Difficulty Paying Gas/Electric Bills: No Difficulty Paying for Meds: No Currently Unemployed: No Education: High School Diploma/GED Difficulty w/ Childcare or Family Care: No Spiritual care concerns: No Meds Home Medications and Allergies Home Medications ?Medication ?Instructions ?Recorded ?Confirmed ?Type famotidine 40 mg tablet 20 mg PO TID PRN indegestion 07/11/20 12/26/24 History aspirin 81 mg chewable tablet 81 mg PO DAILY@0800 #30 tabs 02/23/21 12/26/24 Rx (Children's Aspirin) losartan 50 mg tablet mg PO HS 12/26/24 History Allergies Allergy/AdvReac Type Severity Reaction Status Date / Time erythromycin base Allergy Unknown Verified 12/25/24 22:43 Vital Signs Vital Signs - 24 hr 12/25/24 22:46 12/26/24 01:34 12/26/24 01:36 Temperature 36.3 C L Pulse Rate 91 81 81 Respiratory Rate 17 17 17 Blood Pressure 178/95 H 154/84 H Pulse Oximetry 97 99 99 Oxygen Delivery Room Air 12/26/24 01:37 12/26/24 01:37 12/26/24 01:37 Temperature 36.6 C Pulse Rate 96 79 Respiratory Rate 20 Blood Pressure 154/84 H Pulse Oximetry 98 98 Oxygen Delivery Room Air 12/26/24 01:46 12/26/24 01:48 12/26/24 02:00 Temperature Pulse Rate 79 77 82 Respiratory Rate 18 20 24 H Blood Pressure 139/90 Pulse Oximetry 96 97 99 Oxygen Delivery 12/26/24 02:01 12/26/24 02:16 12/26/24 02:19 Temperature Pulse Rate 80 78 76 Respiratory Rate 19 17 18 Blood Pressure 143/81 H 141/89 H Pulse Oximetry 96 98 97 Oxygen Delivery 12/26/24 02:32 12/26/24 02:51 12/26/24 03:00 Temperature 36.6 C Pulse Rate 76 75 77 Respiratory Rate 20 19 21 H Blood Pressure 138/87 Pulse Oximetry 97 97 98 Oxygen Delivery 12/26/24 03:00 12/26/24 03:01 12/26/24 03:02 Temperature Pulse Rate 76 78 Respiratory Rate 20 22 H Blood Pressure 138/87 Pulse Oximetry 97 97 99 Oxygen Delivery Room Air 12/26/24 03:16 12/26/24 03:31 12/26/24 03:48 Temperature Pulse Rate 75 84 77 Respiratory Rate 19 18 Blood Pressure Pulse Oximetry 96 97 98 Oxygen Delivery 12/26/24 04:00 12/26/24 04:15 12/26/24 04:49 Temperature Pulse Rate 75 75 75 Respiratory Rate 20 18 14 Blood Pressure Pulse Oximetry 97 96 96 Oxygen Delivery 12/26/24 05:14 12/26/24 05:15 12/26/24 05:16 Temperature 36.4 C Pulse Rate 80 85 79 Respiratory Rate 16 21 H 17 Blood Pressure 168/91 H 168/91 H Pulse Oximetry 99 98 98 Oxygen Delivery 12/26/24 05:17 12/26/24 05:35 12/26/24 06:00 Temperature Pulse Rate 83 76 78 Respiratory Rate 17 16 18 Blood Pressure 157/91 H Pulse Oximetry 98 97 98 Oxygen Delivery 12/26/24 06:01 12/26/24 06:17 12/26/24 06:43 Temperature Pulse Rate 74 79 83 Respiratory Rate 13 17 16 Blood Pressure 155/91 H 162/88 H Pulse Oximetry 97 98 Oxygen Delivery 12/26/24 06:46 12/26/24 06:47 12/26/24 07:04 Temperature Pulse Rate 79 82 78 Respiratory Rate 18 17 21 H Blood Pressure 148/88 H Pulse Oximetry Oxygen Delivery 12/26/24 07:15 12/26/24 07:17 12/26/24 07:37 Temperature Pulse Rate 72 75 72 Respiratory Rate 20 19 18 Blood Pressure 141/84 H Pulse Oximetry 97 98 97 Oxygen Delivery 12/26/24 08:50 12/26/24 10:00 Temperature 36.8 C Pulse Rate 68 83 Respiratory Rate 16 Blood Pressure 174/89 H Pulse Oximetry 99 Oxygen Delivery Exam Const: General: no acute distress HENMT: Mouth: Yes moist mucous membranes Eyes: General: appearance normal, both eyes and all related structures Sclera: sclerae normal Resp: Effort & Inspection: normal respiratory effort Cardio: Rate: regular rate Rhythm: regular rhythm Heart sounds: no murmurs GI: GI Palp: Yes Tenderness to palpation present (GI) Skin: General skin exam: normal color Neuro: Speech: normal speech Psych: Affect: Anxious affect present Other: Tearful Results Labs and Meds 12/25/24 22:58 12/25/24 22:58 Lab results: Cardiac Enzymes 12/25/24 12/26/24 12/26/24 Range/Units 22:58 03:21 05:05 AST 21 (14-36) U/L Troponin I < 0.012 0.066 H* D 0.079 H* (0.000-0.034) ng/mL Coagulation 12/25/24 Range/Units 22:58 PT 12.7 (11.1-14.7) Seconds APTT 24.3 (22.3-36.8) Seconds CBC 12/25/24 Range/Units 22:58 WBC 9.4 (4.5-10.0) K/mm3 RBC 4.43 (4.2-5.4) M/mm3 Hgb 13.2 (12.0-15.0) g/dL Hct 39.6 (37.0-47.0) % Plt Count 226 (150-375) k/mm3 Lymph # (Auto) 2.46 (0.9-3.2) K/mm3 [place] # (Auto) 0.6 (0.1-0.6) K/mm3 Eos # (Auto) 0.2 (0-0.3) K/mm3 Baso # (Auto) 0.1 (0.0-0.1) K/mm3 Comprehensive Metabolic Panel 12/25/24 Range/Units 22:58 Sodium 140 (137-145) mmol/L Potassium 3.8 (3.4-5.0) mmol/L Chloride 108 H (98-107) mmol/L Carbon Dioxide 17 L (22-30) mmol/L BUN 12 (7-17) mg/dL Creatinine 0.81 (0.7-1.0) mg/dL Glucose 160 H (65-110) mg/dL Calcium 9.2 (8.4-10.2) mg/dL AST 21 (14-36) U/L ALT 17 (6-35) U/L Alkaline Phosphatase 59 (38-126) U/L Total Protein 7.0 (6.3-8.2) g/dL Albumin 4.3 (3.5-5.1) g/dL Patient Weight 12/26/24 23:59 Weight 117.2 kg
--- NOTE | 2024-12-26 12:04 | P.SEDATION_ITS ---
Moderate Sedation Note-Pt Data Patient Data Diagnosis: NSTEMI Present Complaint: NSTEMI Procedure to be performed/Plan: Coronary angiography, left heart cath, +/- PCI Allergies Allergy/AdvReac Type Severity Reaction Status Date / Time erythromycin base Allergy Unknown Verified 12/25/24 22:43 Home Medications ?Medication ?Instructions ?Recorded ?Confirmed ?Type famotidine 40 mg tablet 20 mg PO TID PRN indegestion 07/11/20 12/26/24 History aspirin 81 mg chewable tablet 81 mg PO DAILY@0800 #30 tabs 02/23/21 12/26/24 Rx (Children's Aspirin) losartan 50 mg tablet mg PO HS 12/26/24 History Current Medications: Active Medications Aspirin (Aspirin 81 Mg Chewable Tablet) 81 mg PO DAILY@0800 YONIS Last Admin: 12/26/24 09:38 Dose: 81 mg Ondansetron HCl (Ondansetron Inj 4 Mg/2 Ml Vial) 4 mg IV PUSH Q4H PRN PRN Reason: Nausea Sedation/Anesthesia: No previous sedation/anesthesia problems (including family history). [facility] Past Medical History Medical History Essential hypertension Polycystic ovarian syndrome Gastroesophageal reflux disease Coronary artery disease (~02/2017) STEMI (ST elevation myocardial infarction) (02/2021) Tobacco abuse Obesity Surgical History Surgical History History of cardiac catheterization (02/21/21) And 12/12/2021 History of coronary artery stent placement 02/21/2021: Drug-eluting stent to the right coronary artery 12/12/2021 3.5 x 15 mm drug-eluting stent to the LAD due to 95% stenosis proximal LAD Family History Family History Father CAD (coronary artery disease) Acute myocardial infarction Hypertension Daughter No problems noted. Mother Lung cancer Cancer Sibling Hypertension Acute myocardial infarction Social History Social History Social History: Surrogate decision maker: Vonnie Laird, sister. Code status: Full code. Smoking packs per day: 1.5 Smoking cigarettes per day: 30.0 Years smoked: 26 Smoking pack-years: 39.00 Smoking status: Former smoker Tobacco type: cigarettes Smoking end date: 12/09/21 Alcohol intake: never Substance use: never Substance use type: does not use Do You Feel Safe in your Home?: Yes Lack of Transportation: No Lack of Food: Never True Current Housing: I Have Housing Concerned About Future Housing: No Difficulty Paying Gas/Electric Bills: No Difficulty Paying for Meds: No Currently Unemployed: No Education: High School Diploma/GED Difficulty w/ Childcare or Family Care: No Spiritual care concerns: No Mod Sed Physical Exam Physical Exam Pre Procedural Exam: Normal: Lungs, Heart Rate, Heart Rhythm, Neuro Exam, Extremities and Skin and Variation: Appearance (Anxious) Hours since solid foods: 12 Hours since liquid intake: 8 Mallampati Classification: class III Internal Medicine - PN: Obj Da Vital Signs Vital Signs: Vital Signs - 24 hr 12/25/24 22:46 12/26/24 01:34 12/26/24 01:36 Temperature 36.3 C L Pulse Rate 91 81 81 Respiratory Rate 17 17 17 Blood Pressure 178/95 H 154/84 H Pulse Oximetry 97 99 99 Oxygen Delivery Room Air 12/26/24 01:37 12/26/24 01:37 12/26/24 01:37 Temperature 36.6 C Pulse Rate 96 79 Respiratory Rate 20 Blood Pressure 154/84 H Pulse Oximetry 98 98 Oxygen Delivery Room Air 12/26/24 01:46 12/26/24 01:48 12/26/24 02:00 Temperature Pulse Rate 79 77 82 Respiratory Rate 18 20 24 H Blood Pressure 139/90 Pulse Oximetry 96 97 99 Oxygen Delivery 12/26/24 02:01 12/26/24 02:16 12/26/24 02:19 Temperature Pulse Rate 80 78 76 Respiratory Rate 19 17 18 Blood Pressure 143/81 H 141/89 H Pulse Oximetry 96 98 97 Oxygen Delivery 12/26/24 02:32 12/26/24 02:51 12/26/24 03:00 Temperature 36.6 C Pulse Rate 76 75 77 Respiratory Rate 20 19 21 H Blood Pressure 138/87 Pulse Oximetry 97 97 98 Oxygen Delivery 12/26/24 03:00 12/26/24 03:01 12/26/24 03:02 Temperature Pulse Rate 76 78 Respiratory Rate 20 22 H Blood Pressure 138/87 Pulse Oximetry 97 97 99 Oxygen Delivery Room Air 12/26/24 03:16 12/26/24 03:31 12/26/24 03:48 Temperature Pulse Rate 75 84 77 Respiratory Rate 19 18 Blood Pressure Pulse Oximetry 96 97 98 Oxygen Delivery 12/26/24 04:00 12/26/24 04:15 12/26/24 04:49 Temperature Pulse Rate 75 75 75 Respiratory Rate 20 18 14 Blood Pressure Pulse Oximetry 97 96 96 Oxygen Delivery 12/26/24 05:14 12/26/24 05:15 12/26/24 05:16 Temperature 36.4 C Pulse Rate 80 85 79 Respiratory Rate 16 21 H 17 Blood Pressure 168/91 H 168/91 H Pulse Oximetry 99 98 98 Oxygen Delivery 12/26/24 05:17 12/26/24 05:35 12/26/24 06:00 Temperature Pulse Rate 83 76 78 Respiratory Rate 17 16 18 Blood Pressure 157/91 H Pulse Oximetry 98 97 98 Oxygen Delivery 12/26/24 06:01 12/26/24 06:17 12/26/24 06:43 Temperature Pulse Rate 74 79 83 Respiratory Rate 13 17 16 Blood Pressure 155/91 H 162/88 H Pulse Oximetry 97 98 Oxygen Delivery 12/26/24 06:46 12/26/24 06:47 12/26/24 07:04 Temperature Pulse Rate 79 82 78 Respiratory Rate 18 17 21 H Blood Pressure 148/88 H Pulse Oximetry Oxygen Delivery 12/26/24 07:15 12/26/24 07:17 12/26/24 07:37 Temperature Pulse Rate 72 75 72 Respiratory Rate 20 19 18 Blood Pressure 141/84 H Pulse Oximetry 97 98 97 Oxygen Delivery 12/26/24 08:50 12/26/24 10:00 Temperature 36.8 C Pulse Rate 68 83 Respiratory Rate 16 Blood Pressure 174/89 H Pulse Oximetry 99 Oxygen Delivery Meds/Results Medications: Active Medications Generic Name Dose Route Start Last Admin Trade Name Freq PRN Reason Stop Dose Admin Aspirin 81 mg 12/26/24 08:00 12/26/24 09:38 Aspirin 81 Mg Chewable Tablet PO 81 mg DAILY@0800 YONIS Administration Ondansetron HCl 4 mg 12/26/24 04:50 Ondansetron Inj 4 Mg/2 Ml Vial IV PUSH Q4H PRN Nausea Radiology Results: ITS Impressions Chest X-Ray 12/25/24 23:22 IMPRESSION: No focal infiltrate or effusion. Labs 12/25/24 22:58 12/25/24 22:58 Labs: Laboratory Results - last 24 hr 12/25/24 12/26/24 12/26/24 22:58 03:21 04:24 WBC 9.4 RBC 4.43 Hgb 13.2 Hct 39.6 MCV 89.4 MCH 29.8 MCHC 33.3 RDW 13.4 Plt Count 226 MPV 10.0 Immature Gran % (Auto) 0.2 Neut % (Auto) 64.6 Lymph % (Auto) 26.3 Bertie % (Auto) 6.4 Eos % (Auto) 1.9 Baso % (Auto) 0.6 Lymph # (Auto) 2.46 Bertie # (Auto) 0.6 Eos # (Auto) 0.2 Baso # (Auto) 0.1 Abs Immat Gran (auto) 0.02 Absolute Neuts (auto) 6.0 Absolute Nucleated RBC 0.000 Nucleated RBC % 0.0 PT 12.7 INR 0.9 APTT 24.3 Sodium 140 Potassium 3.8 Chloride 108 H Carbon Dioxide 17 L Anion Gap 15 H BUN 12 Creatinine 0.81 Estim Creat Clear Calc 108 Estimated GFR > 60 Glucose 160 H Calcium 9.2 Total Bilirubin 0.5 AST 21 ALT 17 Alkaline Phosphatase 59 Troponin I < 0.012 0.066 H* D Total Protein 7.0 Albumin 4.3 Lipase 123 POC Urine HCG, Qual Negative 12/26/24 05:05 WBC RBC Hgb Hct MCV MCH MCHC RDW Plt Count MPV Immature Gran % (Auto) Neut % (Auto) Lymph % (Auto) Bertie % (Auto) Eos % (Auto) Baso % (Auto) Lymph # (Auto) Bertie # (Auto) Eos # (Auto) Baso # (Auto) Abs Immat Gran (auto) Absolute Neuts (auto) Absolute Nucleated RBC Nucleated RBC % PT INR APTT Sodium Potassium Chloride Carbon Dioxide Anion Gap BUN Creatinine Estim Creat Clear Calc Estimated GFR Glucose Calcium Total Bilirubin AST ALT Alkaline Phosphatase Troponin I 0.079 H* Total Protein Albumin Lipase POC Urine HCG, Qual ASA Classification/Sedation ASA Classification/Sedation ASA Class: III Emergent: No Risks: Risks, benefits and alternatives explained and patient/family accepted plan for sedation. Patient re-evaluated immediately prior to sedation.
[2024-12-26 13:01] LABS: Cholesterol 209 mg/dL (0-200); HDL Direct 41 mg/dL; LDL Cholesterol Direct 113 mg/dL; Triglycerides 214 mg/dL (<150)
--- NOTE | 2024-12-26 13:15 | WPDCARDPROC ---
Cardiac Cath Procedure Note Date of procedure:: 12/26/24 Performing physician:: CATHETERIZATION LABORATORY REPORT Procedure Date: 12/26/2024 Double Cut Sawyer: Roger Turcios M.D., [facility]? Referring Physician: Roger Turcios M.D. ? Anesthesia: Versed and Fentanyl were ordered and given in my presence at 12:24, procedure ended at 13:09. Supervision of nurse monitored moderate sedation with Versed and Fentanyl was provided for 45 minutes. Total of Versed 3mg and Fentanyl 100mcg were administered by the Biomass Facilitator RN Rhea Vences. Pre-op Diagnosis: NSTEMI Post-op Diagnosis: 1. Patent stents in the proximal LAD. Patent stents in the proximal-mid RCA. 2. Significant mid LAD stenosis. IFR is positive for ischemia at 0.72. 3. The first diagonal branch is a long vessel, but small caliber in size. There is a 99% stenosis in the mid portion. 4. The proximal LCX has a moderate stenosis. IFR is negative for ischemia at 0.94. 5. The ostium of the RPDA has a 99% stenosis. The RPDA is a small caliber vessel. Procedure(s): 1. Moderate sedation 2. Ultrasound-guided access of the right radial artery 3. Coronary angiography 4. IFR of mid LAD stenosis 4. IFR of proximal LCX disease Access Site: Right radial artery Brief History and Clinical Indications: Patient is a 44 year old female with premature CAD s/p prior PCI to the RCA and LAD who is referred for [facility] for NSTEMI. All risks, benefits and alternatives to left heart catheterization with or without percutaneous coronary intervention was discussed at length with the patient. Risk of complications including but not limited to bleeding, infection, arrhythmia, stroke, worsening kidney function, blood loss, groin hematoma, limb loss, emergency coronary artery bypass grafting, and even were discussed with the patient and all questions were answered. The patient understood and wished to proceed. Time out called, patient name, date of , medical record number, allergies, procedure performed, identify Double Cut Sawyer, patient and staff member concurred with accurate data, procedure carried on. Findings: LEFT HEART CATHETERIZATION FINDINGS: 1. Left main: The left main coronary artery is widely patent without any significant obstructive disease. 2. Left anterior descending: Patent stent seen in the LAD. The mid portion of the LAD has a 70% stenosis. IFR of this lesion is positive for ischemia at a value of 0.72. Remainder of the LAD has diffuse mild disease. The first diagonal branch is a long vessel, but small caliber in size. There is a 99% stenosis in the mid portion. 3. Left circumflex: The proximal LCX has a moderate 50% stenosis. IFR of this lesion is negative for ischemia at a value of 0.94. The OM branch has diffuse mild disease. 4. Right coronary artery: The RCA is the dominant vessel. There is mild 40% stenosis in the proximal RCA. Patent stent seen in the proximal-mid RCA. There is mild-moderate disease distal to the stent. The ostium of the RPDA has a 99% stenosis. The mid portion appears to have significant 70-80% lesion as well. Description of Procedure and PCI: Informed consent signed and placed in the chart. Patient transferred to pit laborer room. Prepped and draped in usual sterile fashion. 2% lidocaine injected subcutaneously in right wrist area. 22-gauge venipuncture catheter used to access the right radial artery under ultrasound guidance. 6-FR slender sheath placed in right radial artery. Nitroglycerine and Verapamil were given intraarterial through the sheath. Versacore wire advanced under fluoroscopy 5F Tig 4 diagnostic catheter engaged Left Main Coronary Artery. 5F Tig 4 diagnostic catheter engaged Right Coronary Artery Multiple orthogonal angiogram obtained and reviewed. We decided to proceed with IFR of the LAD. Angiomax was used for anticoagulation. 6F EBU 3.0 guide catheter was used to intubate the left main. 0.014 IFR coronary wire was passed in to the left main, calibrated, and then advanced distal to the lesion in the LAD. IFR was 0.72 (Positive. Pathological is <0.89). The IFR wire was then re-directed to LCX to interrogate the proximal LCX stenosis. IFR was 0.94 (Negative. Pathological is <0.94). Coronary wire and guide-catheter were removed No angiographic complications identified. Hemostasis was achieved by application of TR band. Disposition: Floor Plan: The patient will be monitored in the recovery area. Will refer to CT Surgery for consideration of surgical revascularization. Continue aggressive medical therapy and risk factor modification. ? Roger Turcios M.D. Interventional Cardiology
[2024-12-26 13:19] LABS: Hemoglobin A1C 5.2 % (<5.7)
[2024-12-26] MEDS: ACETAMINOPHEN 325 MG TABLET 650 MG PO ×2 (14:27→21:10)
[2024-12-26] MEDS: CLOPIDOGREL BISULFATE 300 MG TABLET PO (14:28)
--- NOTE | 2024-12-26 14:36 | PM.IMHP ---
H&P: HPI History of Present Illness Date/Time: 12/26/24 14:36 Chief Complaint: Chest pain Narrative: 44 yo female with PMH of CAD s/p stents x2, and hypertension who presented to the ER on account of chest pain. Noted she has been having chest pain angela past few weeks, substernal chest pressure, 7/10 in intensity, non radiating, intermittent however last night she noted pain was increased to discomfort level with lightheadedness which prompted her to present to the ER for proper eval and care. No vomiting, abd pain, diarrhea, dysuria, focal weakness or loss of consciousness Er eval notable for BP 178/95, T 97.4, RR 17, saturating 97% on room air . labs notable for Troponin 0.079 from 0.066, CHolesterol and Triglycerides, 209 and 214 respectively. Started on full dose lovenox and cardiology consulted prior to admission [facility] Past Medical History Medical History Essential hypertension Polycystic ovarian syndrome Gastroesophageal reflux disease Coronary artery disease (~02/2017) STEMI (ST elevation myocardial infarction) (02/2021) Tobacco abuse Obesity Surgical History Surgical History History of cardiac catheterization (02/21/21) And 12/12/2021 History of coronary artery stent placement 02/21/2021: Drug-eluting stent to the right coronary artery 12/12/2021 3.5 x 15 mm drug-eluting stent to the LAD due to 95% stenosis proximal LAD Family History Family History Father CAD (coronary artery disease) Acute myocardial infarction Hypertension Daughter No problems noted. Mother Lung cancer Cancer Sibling Hypertension Acute myocardial infarction Social History Social History Social History: Surrogate decision maker: Vonnie Laird, sister. Code status: Full code. Smoking packs per day: 1.5 Smoking cigarettes per day: 30.0 Years smoked: 26 Smoking pack-years: 39.00 Smoking status: Former smoker Tobacco type: cigarettes Smoking end date: 12/09/21 Alcohol intake: never Substance use: never Substance use type: does not use Do You Feel Safe in your Home?: Yes Lack of Transportation: No Lack of Food: Never True Current Housing: I Have Housing Concerned About Future Housing: No Difficulty Paying Gas/Electric Bills: No Difficulty Paying for Meds: No Currently Unemployed: No Education: High School Diploma/GED Difficulty w/ Childcare or Family Care: No Spiritual care concerns: No Meds Home Medications and Allergies Home Medications ?Medication ?Instructions ?Recorded ?Confirmed ?Type famotidine 40 mg tablet 20 mg PO TID PRN indegestion 07/11/20 12/26/24 History aspirin 81 mg chewable tablet 81 mg PO DAILY@0800 #30 tabs 02/23/21 12/26/24 Rx (Children's Aspirin) losartan 50 mg tablet mg PO HS 12/26/24 History Allergies Allergy/AdvReac Type Severity Reaction Status Date / Time erythromycin base Allergy Unknown Verified 12/25/24 22:43 Vital Signs Vital Signs - 24 hr 12/25/24 22:46 12/26/24 01:34 12/26/24 01:36 Temperature 97.4 F L Pulse Rate 91 81 81 Pulse Rate [Bilateral Radial Palpation] Respiratory Rate 17 17 17 Blood Pressure 178/95 H 154/84 H Pulse Oximetry 97 99 99 Oxygen Delivery Room Air 12/26/24 01:37 12/26/24 01:37 12/26/24 01:37 Temperature 98 F Pulse Rate 96 79 Pulse Rate [Bilateral Radial Palpation] Respiratory Rate 20 Blood Pressure 154/84 H Pulse Oximetry 98 98 Oxygen Delivery Room Air 12/26/24 01:46 12/26/24 01:48 12/26/24 02:00 Temperature Pulse Rate 79 77 82 Pulse Rate [Bilateral Radial Palpation] Respiratory Rate 18 20 24 H Blood Pressure 139/90 Pulse Oximetry 96 97 99 Oxygen Delivery 12/26/24 02:01 12/26/24 02:16 12/26/24 02:19 Temperature Pulse Rate 80 78 76 Pulse Rate [Bilateral Radial Palpation] Respiratory Rate 19 17 18 Blood Pressure 143/81 H 141/89 H Pulse Oximetry 96 98 97 Oxygen Delivery 12/26/24 02:32 12/26/24 02:51 12/26/24 03:00 Temperature 97.8 F Pulse Rate 76 75 77 Pulse Rate [Bilateral Radial Palpation] Respiratory Rate 20 19 21 H Blood Pressure 138/87 Pulse Oximetry 97 97 98 Oxygen Delivery 12/26/24 03:00 12/26/24 03:01 12/26/24 03:02 Temperature Pulse Rate 76 78 Pulse Rate [Bilateral Radial Palpation] Respiratory Rate 20 22 H Blood Pressure 138/87 Pulse Oximetry 97 97 99 Oxygen Delivery Room Air 12/26/24 03:16 12/26/24 03:31 12/26/24 03:48 Temperature Pulse Rate 75 84 77 Pulse Rate [Bilateral Radial Palpation] Respiratory Rate 19 18 Blood Pressure Pulse Oximetry 96 97 98 Oxygen Delivery 12/26/24 04:00 12/26/24 04:15 12/26/24 04:49 Temperature Pulse Rate 75 75 75 Pulse Rate [Bilateral Radial Palpation] Respiratory Rate 20 18 14 Blood Pressure Pulse Oximetry 97 96 96 Oxygen Delivery 12/26/24 05:14 12/26/24 05:15 12/26/24 05:16 Temperature 97.6 F Pulse Rate 80 85 79 Pulse Rate [Bilateral Radial Palpation] Respiratory Rate 16 21 H 17 Blood Pressure 168/91 H 168/91 H Pulse Oximetry 99 98 98 Oxygen Delivery 12/26/24 05:17 12/26/24 05:35 12/26/24 06:00 Temperature Pulse Rate 83 76 78 Pulse Rate [Bilateral Radial Palpation] Respiratory Rate 17 16 18 Blood Pressure 157/91 H Pulse Oximetry 98 97 98 Oxygen Delivery 12/26/24 06:01 12/26/24 06:17 12/26/24 06:43 Temperature Pulse Rate 74 79 83 Pulse Rate [Bilateral Radial Palpation] Respiratory Rate 13 17 16 Blood Pressure 155/91 H 162/88 H Pulse Oximetry 97 98 Oxygen Delivery 12/26/24 06:46 12/26/24 06:47 12/26/24 07:04 Temperature Pulse Rate 79 82 78 Pulse Rate [Bilateral Radial Palpation] Respiratory Rate 18 17 21 H Blood Pressure 148/88 H Pulse Oximetry Oxygen Delivery 12/26/24 07:15 12/26/24 07:17 12/26/24 07:37 Temperature Pulse Rate 72 75 72 Pulse Rate [Bilateral Radial Palpation] Respiratory Rate 20 19 18 Blood Pressure 141/84 H Pulse Oximetry 97 98 97 Oxygen Delivery 12/26/24 08:50 12/26/24 10:00 12/26/24 12:00 Temperature 98.2 F Pulse Rate 68 83 91 Pulse Rate [Bilateral Radial Palpation] Respiratory Rate 16 Blood Pressure 174/89 H Pulse Oximetry 99 Oxygen Delivery 12/26/24 13:34 12/26/24 13:34 12/26/24 13:45 Temperature Pulse Rate 65 72 Pulse Rate [Bilateral Radial Palpation] 65 Respiratory Rate 14 18 Blood Pressure 156/91 H 144/82 H Pulse Oximetry 96 97 Oxygen Delivery Room Air Room Air 12/26/24 13:45 12/26/24 14:00 12/26/24 14:00 Temperature Pulse Rate 65 Pulse Rate [Bilateral Radial Palpation] 72 65 Respiratory Rate 17 Blood Pressure 159/94 H Pulse Oximetry 96 Oxygen Delivery Room Air 12/26/24 14:15 12/26/24 14:15 12/26/24 14:30 Temperature Pulse Rate 69 75 Pulse Rate [Bilateral Radial Palpation] 69 Respiratory Rate 14 17 Blood Pressure 146/97 H 160/98 H Pulse Oximetry 96 97 Oxygen Delivery Room Air Room Air 12/26/24 14:30 Temperature Pulse Rate Pulse Rate [Bilateral Radial Palpation] 97 Respiratory Rate Blood Pressure Pulse Oximetry Oxygen Delivery H&P: Results Labs Labs: Short CBC 12/25/24 Range/Units 22:58 WBC 9.4 (4.5-10.0) K/mm3 Hgb 13.2 (12.0-15.0) g/dL Hct 39.6 (37.0-47.0) % Plt Count 226 (150-375) k/mm3 BMP 12/25/24 22:58 Sodium 140 Potassium 3.8 Chloride 108 H Carbon Dioxide 17 L BUN 12 Creatinine 0.81 Glucose 160 H Calcium 9.2 Cardiac Enzymes 12/25/24 12/26/24 12/26/24 Range/Units 22:58 03:21 05:05 Troponin I < 0.012 0.066 H* D 0.079 H* (0.000-0.034) ng/mL Liver Function 12/25/24 Range/Units 22:58 Total Bilirubin 0.5 (0.2-1.3) mg/dL AST 21 (14-36) U/L ALT 17 (6-35) U/L Alkaline Phosphatase 59 (38-126) U/L Albumin 4.3 (3.5-5.1) g/dL Assessment and Plan Assessment and plan (1) NSTEMI (non-ST elevated myocardial infarction): Code(s): I21.4 - Non-ST elevation (NSTEMI) myocardial infarction Status: Acute Plan NSTEMI Presented with chest pain Elevated troponin Continue Aspirin full dose lovenox ECHO pending, trend troponin Cardiology consulted, for cardiac cath today HTN Contineu losartan and monitor CAD s/p stents continue above care and adjust with clinical course DVT prophylaxis on Sq Lovenox Full dose SUrrogate decision maker, sister irene Limmaegan
[2024-12-26] MEDS: PERFLUTREN LIPID MICROSPHERES 1.5 ML VIAL DILUTED TO 10 ML TOTAL VOLUME IV PUSH (15:45)
--- NOTE | 2024-12-26 16:27 | IVDEFINITY ---
Prior to administration of IV Definity the patient was educated on the risks and benefits of the imaging enhancing agent including potential adverse side effects. The patient verbalized understanding. Allergies were verified. No exclusion criteria were identified and at least one of the following inclusion criteria were met: 1) physician request, 2) patient technically difficult to image (per the [place] [employer] guidelines of two or more segments not discernable within the apical view), or 3) questionable left ventricular function. ?
--- NOTE | 2024-12-26 17:15 | PC.NURSE ---
Patient returned to room from cath lab tech. Arm board in place to right wrist. No bleeding, bruising, or hematoma noted to area. Patient ambulated from stretcher to bed without any problems.
[2024-12-26] MEDS: SODIUM CHLORIDE 0.9% IV 1,000 ML 125 ML IV CONT (17:32)
[2024-12-26] MEDS: FAMOTIDINE 20 MG TABLET PO (21:11)
[2024-12-26] MEDS: CALCIUM CARBONATE (TUMS) 500 MG (200 MG ELEMENTAL) PO (21:11)
[2024-12-27] VITALS (13 sets, daily range): BP systolic 123–174; BP diastolic 63–89; PULSE 56–89; RESP 14–18; TEMP 36.7–36.9; O2SAT 96–99
--- NOTE | 2024-12-27 | ECHO_ITS ---
Patient Info Name: Prem Rao Age: 44 years : 1980 Gender: Female Ht: 69 in Wt: 258 lbs BSA: 2.44 m2 HR: 91 bpm BP: 174 / 89 mmHg Heart Rhythm: Sinus Rhythm Technical Quality: Fair Exam Date: 12/27/2024 10:31 AM Exam Location: Echo Lab Patient Status: Inpatient Admit Date: 12/26/2024 Staff Ordering Physician: Roger Turcios MD (patti/curtis) Casualty Insurance Claim Adjuster: Palak Flores RDCS Attending Provider: Saundra Lagos MD Referring Physician: Tam CHEUNG; Exam Type: CA echo doppler color flow Study Info Indications - NSTEMI Complete two-dimensional, color flow and Doppler transthoracic echocardiogram is performed. Summary 1. Left ventricular chamber dimension is normal. 2. Left ventricular systolic function is normal, estimated at 65-70%. 3. There is mildly increased left ventricular wall thickness. 4. The left ventricular diastolic function is grade I diastolic dysfunction. 5. Right ventricular systolic function is normal. 6. There is mild tricuspid valve regurgitation. Left Ventricle Left ventricular chamber dimension is normal. Left ventricular systolic function is normal, estimated at 65-70%. There is mildly increased left ventricular wall thickness. The left ventricular diastolic function is grade I diastolic dysfunction. Right Ventricle Right ventricular chamber dimension is normal. Right ventricular systolic function is normal. Left Atria Left atrial chamber dimension is normal. Right Atria Right atrial chamber dimension is normal. Atrial Septum Intact interatrial septum visualized by color flow imaging. Aortic Valve The aortic valve is not well visualized. There is no aortic valve stenosis. There is no aortic valve regurgitation. Pulmonic Valve The pulmonic valve is not well visualized. Mitral Valve There is trace mitral valve regurgitation. Tricuspid Valve There is mild tricuspid valve regurgitation. Pericardium/Pleural There is no pericardial effusion. Inferior Vena Cava Inferior vena cava is not well visualized. Aorta The aortic root size at the sinus of Valsalva is normal. Left Ventricular Outflow Tract Name Value Normal LVOT 2D LVOT Diameter 2.1 cm LVOT Doppler LVOT Peak Gradient 4 mmHg LVOT Mean Gradient 2 mmHg LVOT VTI 21 cm LVOT VTI/AV VTI Ratio 0.8 LVOT Stroke Volume 73 ml LVOT CO 5.1 l/min LVOT CI 2.1 l/min/m2 Pulmonic Valve Name Value Normal RVOT Doppler RVOT Peak Gradient 3 mmHg PV Doppler PV Peak Gradient 3 mmHg Mitral Valve Name Value Normal MV Doppler MV Decel [place] 231 cm/s2 MV PHT 73 ms MV Area (PHT) 3.0 cm2 4.0-5.0 MV Diastolic Function MV E Peak Velocity 58 cm/s MV A Peak Velocity 67 cm/s MV E/A 0.9 MV Decel Time 251 ms MV Annular TDI MV E/e' (Septal) 6.1 <=8.0 MV E/e' (Lateral) 6.7 <=8.0 MV E/e' (Average) 6.4 Tricuspid Valve Name Value Normal TV Regurgitation Doppler TR Peak Velocity 238 cm/s TR Peak Gradient 19 mmHg Aortic Valve Name Value Normal AV Doppler AV Peak Velocity 129 cm/s AV Peak Gradient 7 mmHg AV Mean Gradient 3 mmHg AV VTI 27 cm AV Area (Cont Eq VTI) 2.7 cm2 >=3.0 AV Area (Cont Eq Miko) 2.5 cm2 AV Regurgitation 2D LVOT Area 3.4 cm2 Ventricles Name Value Normal LV Dimensions 2D/MM IVS Diastolic Thickness (2D) 1.2 cm 0.6-1.0 LVID Diastole (2D) 4.3 cm 3.8-5.2 LVIW Diastolic Thickness (2D) 1.1 cm 0.6-0.9 LVID Systole (2D) 3.0 cm 2.2-3.5 LVOT Diameter 2.1 cm LV Mass (2D Cubed) 171.17 g 67.00-162.00 LV Mass Index (2D Cubed) 70 g/m2 43-95 Relative Wall Thickness (2D) 0.52 LV Fractional Shortening/Ejection Fraction 2D/MM LV Fractional Shortening (2D) 31 % 27-45 LV EF (2D Teicholz) 58 % 54-74 LV Diastolic Volume (4C MOD) 169 ml LV EF (4C MOD) 73 % LV Diastolic Volume (2C MOD) 170 ml LV EF (2C MOD) 70 % LV Diastolic Volume (BP MOD) 177 ml 46-106 LV Diastolic Volume Index (BP MOD) 73 ml/m2 29-61 LV Systolic Volume (BP MOD) 48 ml 14-42 LV Systolic Volume Index (BP MOD) 20 ml/m2 8-24 LV EF (BP MOD) 73 % 54-74 LV Diastolic Length (4C) 9.1 cm LV Systolic Length (4C) 6.6 cm LV Stroke Volume (4C MOD) 125 ml Atria Name Value Normal LA Dimensions LA Volume (4C A-L) 71 ml LA Volume (BP A-L) 65 ml RA Dimensions RA Area (4C) 23.2 cm2 <=18.0 Report Signatures
[2024-12-27 05:01] LABS: Basophils Percent Auto 0.5 % (0.2-1.2); Eosinophils Absolute Auto 0.2 K/mm3 (0-0.3); Eosinophils Percent Auto 2.4 % (0-4.4); Hematocrit 38.7 % (37.0-47.0); Hemoglobin 12.9 g/dL (12.0-15.0); Immature Granulocyte Absolute 0.02 K/mm3 (0.00-0.031); Immature Granulocyte Percent A 0.3 % (0-0.5); Lymphocytes Absolute Auto 2.05 K/mm3 (0.9-3.2); Lymphocytes Percent Auto 27.3 % (18.3-44.2); Mean Corpuscular HGB Conc 33.3 g/dl (32-36); Mean Corpuscular Hemoglobin 29.9 pg (26-34); Mean Corpuscular Volume 89.6 fl (80-100); Mean Platelet Volume 9.8 fl (7.4-10.4); Monocytes Absolute Auto 0.6 K/mm3 (0.1-0.6); Monocytes Percent Auto 8.1 % (2.6-8.5); Neutrophils Absolute Auto 4.6 K/mm3 (1.3-6.7); Neutrophils Percent Auto 61.4 % (45.5-73.1); Platelet Count Result 216 k/mm3 (150-375); Red Blood Count 4.32 M/mm3 (4.2-5.4); Red Cell Distribution Width 13.2 % (11.5-14.5); White Blood Count 7.5 K/mm3 (4.5-10.0)
[2024-12-27 05:28] LABS: Alanine Aminotransferase 15 U/L (6-35); Albumin Level 3.9 g/dL (3.5-5.1); Alkaline Phosphatase 57 U/L (38-126); Anion Gap 10 mmol/L (4-12); Aspartate Amino Transferase 18 U/L (14-36); Bilirubin,Total 0.9 mg/dL (0.2-1.3); Blood Urea Nitrogen 8 mg/dL (7-17); Calcium 8.8 mg/dL (8.4-10.2); Carbon Dioxide 19 mmol/L (22-30); Chloride 110 mmol/L (98-107); Estimated CRCL calculation 122 ml/min; Estimated Glomerular Filt Rate > 60; Glucose 96 mg/dL (65-110); Magnesium 1.9 mg/dL (1.6-2.3); Potassium 3.9 mmol/L (3.4-5.0); Sodium 139 mmol/L (137-145)
[2024-12-27] MEDS: ACETAMINOPHEN 325 MG TABLET 650 MG PO ×2 (06:21→17:05)
[2024-12-27] MEDS: PANTOPRAZOLE SODIUM IV 40 MG VIAL IV PUSH (09:07)
[2024-12-27] MEDS: ASPIRIN 81 MG CHEWABLE TABLET PO (09:08)
[2024-12-27] MEDS: FAMOTIDINE 20 MG TABLET PO (09:08)
[2024-12-27] MEDS: ISOSORBIDE MONONITRATE 60 MG TAB.ER.24H PO (09:08)
[2024-12-27] MEDS: CLOPIDOGREL BISULFATE 75 MG TABLET PO (09:08)
[2024-12-27] MEDS: ALPRAZolam (*CRX) 0.25 MG TABLET PO (09:59)
--- NOTE | 2024-12-27 12:56 | PM.PNCARD ---
Progress Note: A&P Assessment and Plan (1) NSTEMI (non-ST elevated myocardial infarction): Code(s): I21.4 - Non-ST elevation (NSTEMI) myocardial infarction Status: Acute Plan 1. NSTEMI 2. Coronary artery disease s/p PCI to the RCA and LAD. Had an RCA STEMI in February 2021 s/p PCI, followed by new high grade proximal LAD stenosis in December 2021 s/p PCI to the LAD. Was on ASA but self-discontinued. 3. Hypertension 4. Hyperlipidemia with statin intolerance. Was on Repatha at last cardiology office visit in 2022, but subsequently stopped taking it. 5. Non-compliance. Quit taking ASA, Repatha, has not followed up with Dr. Gomes since April 2023. 6. Anxiety. PLAN: -[facility] 12/26 shows patent stents in the proximal LAD and proximal-mid RCA. Has an obstructive stenosis in the mid LAD, with the LAD otherwise having diffuse mild disease in the mid-distal portion. IFR of the LAD positive for ischemia. The first diagonal branch with a 99% stenosis. Ostial RPDA with a 99% stenosis. Moderate stenosis in the proximal LCX that is negative for ischemia by IFR. -This is now her third coronary event since February 2021, which is concerning given her young age; her premature CAD continues to progress (although has been noncompliant to ASA, Repatha). -Will refer to CT Surgery for consideration of CABG. The diagonal branch and RPDA are small caliber vessel, and if they are not graftable, I wonder if she may be a good candidate for MIDCABG as I think her long-term outcomes would be better with a URBAN to the LAD rather than more stents, especially with concerns for medication compliance. -Initially plan was for outpatient CTS eval, however, will transfer to [facility] for inpatient eval. -Continue ASA 81mg once daily. -Stop Plavix (received 300mg dose on 12/26 and 75mg dose on 12/27). -Not able to tolerate statins in the past. Will need to get her started back on Repatha as an outpatient. -Continue Imdur for antianginal therapy. Recommendations and plan discussed with Hospitalist. Subjective Date/time seen: 12/27/24 12:56 Interval history: Reason for visit: NSTEMI HPI: Prem is a 44 year old female with known premature coronary artery disease. Had an acute inferior wall NH in February 2021 s/p PCI to the RCA. Cardiac catheterization in December 2021 showed new high-grade 95% stenosis in the LAD s/p PCI with HOMAR x 1. Was following with Dr. Gomes, but has not seen him since April 2023. Prem states that her panic attacks / severe anxiety has made it difficult for her to follow up with doctors. Had stopped taking ASA a while back. Per Dr. Gomes's last clinic note, she was unable to tolerate statins, and was started on Repatha, however, patient states the only medications she takes now are her Losartan and Famotidine. Patient states about 1.5 hours after eating yesterday, she developed substernal chest pain. Has issues with her stomach and had felt discomfort in her stomach. Chest pain lasted for about 20-30 minutes. Resolved. Recurred later in the evening and resolved when given SL NTG by EMS. Initial troponin negative, repeat elevated at 0.066, with third troponin increased to 0.079. CXR without acute findings. EKGs with sinus rhythm without ischemic changes. She is tearful upon my examination. Date of service: Quite anxious today. Worried that she may go home and . Tele stable. Review of Systems Cardiovascular: Cardiovascular: Reports as per HPI Exam Const: General: no acute distress HENMT: Mouth: Yes moist mucous membranes Eyes: General: appearance normal, both eyes and all related structures Sclera: sclerae normal Resp: Effort & Inspection: normal respiratory effort Cardio: Rate: regular rate Rhythm: regular rhythm Skin: General skin exam: normal color Psych: Affect: Anxious affect present Objective Data Vital Signs Vital Signs: Vital Signs - 24 hr 12/26/24 13:34 12/26/24 13:34 12/26/24 13:45 Temperature Pulse Rate 65 72 Pulse Rate [Bilateral Radial Palpation] 65 Respiratory Rate 14 18 Blood Pressure 156/91 H 144/82 H Pulse Oximetry 96 97 Oxygen Delivery Room Air Room Air 12/26/24 13:45 12/26/24 14:00 12/26/24 14:00 Temperature Pulse Rate 65 Pulse Rate [Bilateral Radial Palpation] 72 65 Respiratory Rate 17 Blood Pressure 159/94 H Pulse Oximetry 96 Oxygen Delivery Room Air 12/26/24 14:15 12/26/24 14:15 12/26/24 14:30 Temperature Pulse Rate 69 75 Pulse Rate [Bilateral Radial Palpation] 69 Respiratory Rate 14 17 Blood Pressure 146/97 H 160/98 H Pulse Oximetry 96 97 Oxygen Delivery Room Air Room Air 12/26/24 14:30 12/26/24 14:45 12/26/24 14:45 Temperature Pulse Rate 82 Pulse Rate [Bilateral Radial Palpation] 97 82 Respiratory Rate 16 Blood Pressure 147/96 H Pulse Oximetry 97 Oxygen Delivery Room Air 12/26/24 15:00 12/26/24 15:00 12/26/24 15:15 Temperature Pulse Rate 76 65 Pulse Rate [Bilateral Radial Palpation] 76 Respiratory Rate 15 12 Blood Pressure 148/94 H 138/76 Pulse Oximetry 97 97 Oxygen Delivery Room Air Room Air 12/26/24 15:15 12/26/24 15:30 12/26/24 15:30 Temperature Pulse Rate 66 Pulse Rate [Bilateral Radial Palpation] 65 66 Respiratory Rate 14 Blood Pressure 124/73 Pulse Oximetry 97 Oxygen Delivery Room Air 12/26/24 15:45 12/26/24 15:45 12/26/24 16:00 Temperature Pulse Rate 66 70 Pulse Rate [Bilateral Radial Palpation] 66 Respiratory Rate 16 15 Blood Pressure 129/74 125/83 Pulse Oximetry 95 95 Oxygen Delivery Room Air Room Air 12/26/24 16:00 12/26/24 16:15 12/26/24 16:15 Temperature 36.8 C Pulse Rate 90 Pulse Rate [Bilateral Radial Palpation] 70 90 Respiratory Rate 15 Blood Pressure 133/79 Pulse Oximetry 97 Oxygen Delivery Room Air 12/26/24 16:30 12/26/24 16:30 12/26/24 16:45 Temperature Pulse Rate 84 92 Pulse Rate [Bilateral Radial Palpation] 84 Respiratory Rate 19 14 Blood Pressure 137/93 H 148/94 H Pulse Oximetry 97 97 Oxygen Delivery Room Air Room Air 12/26/24 16:45 12/26/24 17:00 12/26/24 17:00 Temperature Pulse Rate 84 Pulse Rate [Bilateral Radial Palpation] 92 84 Respiratory Rate 16 Blood Pressure 131/84 Pulse Oximetry 97 Oxygen Delivery Room Air 12/26/24 17:56 12/26/24 18:00 12/26/24 18:00 Temperature 36.5 C Pulse Rate 81 83 Pulse Rate [Bilateral Radial Palpation] 84 Respiratory Rate 18 Blood Pressure 165/108 H Pulse Oximetry 98 Oxygen Delivery 12/26/24 18:55 12/26/24 19:00 12/26/24 19:40 Temperature 37.1 C 36.8 C Pulse Rate 78 84 Pulse Rate [Bilateral Radial Palpation] 84 Respiratory Rate 18 18 Blood Pressure 159/84 H 150/70 H Pulse Oximetry 98 97 Oxygen Delivery 12/26/24 20:00 12/26/24 21:00 12/26/24 22:00 Temperature 36.8 C 36.7 C Pulse Rate 84 75 66 Pulse Rate [Bilateral Radial Palpation] Respiratory Rate 18 18 Blood Pressure 162/83 H 158/80 H Pulse Oximetry 98 98 Oxygen Delivery 12/26/24 22:00 12/27/24 00:00 12/27/24 00:02 Temperature 36.7 C Pulse Rate 67 65 78 Pulse Rate [Bilateral Radial Palpation] Respiratory Rate 14 Blood Pressure 140/78 Pulse Oximetry 99 Oxygen Delivery 12/27/24 02:00 12/27/24 04:00 12/27/24 04:21 Temperature 36.9 C Pulse Rate 62 56 L 89 Pulse Rate [Bilateral Radial Palpation] Respiratory Rate 16 Blood Pressure 134/66 Pulse Oximetry 99 Oxygen Delivery 12/27/24 06:00 12/27/24 08:00 12/27/24 08:00 Temperature 36.9 C Pulse Rate 66 66 79 Pulse Rate [Bilateral Radial Palpation] Respiratory Rate 14 Blood Pressure 174/89 H Pulse Oximetry 97 Oxygen Delivery 12/27/24 09:12 12/27/24 10:00 12/27/24 11:41 Temperature 36.7 C Pulse Rate 72 70 Pulse Rate [Bilateral Radial Palpation] Respiratory Rate 18 Blood Pressure 123/63 Pulse Oximetry 96 96 Oxygen Delivery Room Air 12/27/24 12:00 Temperature Pulse Rate 79 Pulse Rate [Bilateral Radial Palpation] Respiratory Rate Blood Pressure Pulse Oximetry Oxygen Delivery Intake/Output Intake/Output: Intake & Output 12/24/24 12/25/24 12/26/24 12/27/24 23:59 23:59 23:59 23:59 Intake Total 720 1118 Balance 720 1118 Meds/Results Medications: Active Medications Generic Name Dose Route Start Last Admin Trade Name Freq PRN Reason Stop Dose Admin Acetaminophen 650 mg 12/26/24 20:49 12/27/24 06:21 Acetaminophen 325 Mg Tablet PO 650 mg Q4H PRN Administration Mild Pain (1-3) or Fever Aspirin 81 mg 12/26/24 08:00 12/27/24 09:08 Aspirin 81 Mg Chewable Tablet PO 81 mg DAILY@0800 [facility] Administration Calcium Carbonate 200 mg 12/26/24 20:49 12/26/24 21:11 Calcium Carbonate (Tums) 500 Mg (200 Mg Elemental) PO 200 mg Q6H PRN Administration Indigestion Clopidogrel Bisulfate 75 mg 12/27/24 09:00 12/27/24 09:08 Clopidogrel Bisulfate 75 Mg Tablet PO 75 mg QAM YONIS Administration Famotidine 20 mg 12/26/24 21:00 12/27/24 09:08 Famotidine 20 Mg Tablet PO 20 mg Q12HR YONIS Administration Isosorbide Mononitrate 60 mg 12/27/24 09:00 12/27/24 09:08 Isosorbide Mononitrate 60 Mg Tab.Er.24h PO 60 mg QAM [facility] Administration Nitroglycerin 0.4 mg 12/26/24 20:49 Nitroglycerin Sl 0.4 Mg Tablet SUBLINGUAL Q5MIN PRN Chest Pain Ondansetron HCl 4 mg 12/26/24 04:50 Ondansetron Inj 4 Mg/2 Ml Vial IV PUSH Q4H PRN Nausea Pantoprazole Sodium 40 mg 12/27/24 09:00 12/27/24 09:07 Pantoprazole Sodium Iv 40 Mg Vial IV PUSH 40 mg Q12HR YONIS Administration Radiology Results: ITS Impressions Chest X-Ray 12/25/24 23:22 IMPRESSION: No focal infiltrate or effusion. Labs Labs: Laboratory Results - last 24 hr 12/25/24 12/26/24 12/27/24 11:57 03:21 04:45 WBC 7.5 RBC 4.32 Hgb 12.9 Hct 38.7 MCV 89.6 MCH 29.9 MCHC 33.3 RDW 13.2 Plt Count 216 MPV 9.8 Immature Gran % (Auto) 0.3 Neut % (Auto) 61.4 Lymph % (Auto) 27.3 [place] % (Auto) 8.1 Eos % (Auto) 2.4 Baso % (Auto) 0.5 Lymph # (Auto) 2.05 [place] # (Auto) 0.6 Eos # (Auto) 0.2 Baso # (Auto) 0.0 Abs Immat Gran (auto) 0.02 Absolute Neuts (auto) 4.6 Absolute Nucleated RBC 0.000 Nucleated RBC % 0.0 Sodium 139 Potassium 3.9 Chloride 110 H Carbon Dioxide 19 L Anion Gap 10 BUN 8 Creatinine 0.73 Estim Creat Clear Calc 122 Estimated GFR > 60 Glucose 96 Hemoglobin A1c 5.2 Calcium 8.8 Magnesium 1.9 Total Bilirubin 0.9 AST 18 ALT 15 Alkaline Phosphatase 57 Total Protein 7.0 Albumin 3.9 Triglycerides 214 H Cholesterol 209 H LDL Cholesterol Direct 113 HDL Direct 41
--- NOTE | 2024-12-27 13:12 | PM.IMPN ---
Progress Note: A&P Assessment and Plan (1) NSTEMI (non-ST elevated myocardial infarction): Code(s): I21.4 - Non-ST elevation (NSTEMI) myocardial infarction Status: Acute Plan NSTEMI s/p Cardiac cath with multivessel disease (significant disease in LAD, RPDA and Diagonal) Continue Aspirin full dose Lovenox ECHO ef 65-70% Awaiting transfer to [facility] for CABG cardiology following HTN Continue losartan and monitor CAD s/p stents continue above care and adjust with clinical course DVT prophylaxis on Sq Lovenox Awaiting transfer to [facility] for CABG Subjective Date/time seen: 12/27/24 13:12 Interval history: Patient very emotional at bedside, underwent cardiac cath yesterday which showed LAD, RPDA and diagnosis stenosis. cardiology recommended transfer to CABG eval. Objective Data Vital Signs Vital Signs: Vital Signs - 24 hr 12/26/24 13:34 12/26/24 13:34 12/26/24 13:45 Temperature Pulse Rate 65 72 Pulse Rate [Bilateral Radial Palpation] 65 Respiratory Rate 14 18 Blood Pressure 156/91 H 144/82 H Pulse Oximetry 96 97 Oxygen Delivery Room Air Room Air 12/26/24 13:45 12/26/24 14:00 12/26/24 14:00 Temperature Pulse Rate 65 Pulse Rate [Bilateral Radial Palpation] 72 65 Respiratory Rate 17 Blood Pressure 159/94 H Pulse Oximetry 96 Oxygen Delivery Room Air 12/26/24 14:15 12/26/24 14:15 12/26/24 14:30 Temperature Pulse Rate 69 75 Pulse Rate [Bilateral Radial Palpation] 69 Respiratory Rate 14 17 Blood Pressure 146/97 H 160/98 H Pulse Oximetry 96 97 Oxygen Delivery Room Air Room Air 12/26/24 14:30 12/26/24 14:45 12/26/24 14:45 Temperature Pulse Rate 82 Pulse Rate [Bilateral Radial Palpation] 97 82 Respiratory Rate 16 Blood Pressure 147/96 H Pulse Oximetry 97 Oxygen Delivery Room Air 12/26/24 15:00 12/26/24 15:00 12/26/24 15:15 Temperature Pulse Rate 76 65 Pulse Rate [Bilateral Radial Palpation] 76 Respiratory Rate 15 12 Blood Pressure 148/94 H 138/76 Pulse Oximetry 97 97 Oxygen Delivery Room Air Room Air 12/26/24 15:15 12/26/24 15:30 12/26/24 15:30 Temperature Pulse Rate 66 Pulse Rate [Bilateral Radial Palpation] 65 66 Respiratory Rate 14 Blood Pressure 124/73 Pulse Oximetry 97 Oxygen Delivery Room Air 12/26/24 15:45 12/26/24 15:45 12/26/24 16:00 Temperature Pulse Rate 66 70 Pulse Rate [Bilateral Radial Palpation] 66 Respiratory Rate 16 15 Blood Pressure 129/74 125/83 Pulse Oximetry 95 95 Oxygen Delivery Room Air Room Air 12/26/24 16:00 12/26/24 16:15 12/26/24 16:15 Temperature 98.2 F Pulse Rate 90 Pulse Rate [Bilateral Radial Palpation] 70 90 Respiratory Rate 15 Blood Pressure 133/79 Pulse Oximetry 97 Oxygen Delivery Room Air 12/26/24 16:30 12/26/24 16:30 12/26/24 16:45 Temperature Pulse Rate 84 92 Pulse Rate [Bilateral Radial Palpation] 84 Respiratory Rate 19 14 Blood Pressure 137/93 H 148/94 H Pulse Oximetry 97 97 Oxygen Delivery Room Air Room Air 12/26/24 16:45 12/26/24 17:00 12/26/24 17:00 Temperature Pulse Rate 84 Pulse Rate [Bilateral Radial Palpation] 92 84 Respiratory Rate 16 Blood Pressure 131/84 Pulse Oximetry 97 Oxygen Delivery Room Air 12/26/24 17:56 12/26/24 18:00 12/26/24 18:00 Temperature 97.7 F Pulse Rate 81 83 Pulse Rate [Bilateral Radial Palpation] 84 Respiratory Rate 18 Blood Pressure 165/108 H Pulse Oximetry 98 Oxygen Delivery 12/26/24 18:55 12/26/24 19:00 12/26/24 19:40 Temperature 98.7 F 98.2 F Pulse Rate 78 84 Pulse Rate [Bilateral Radial Palpation] 84 Respiratory Rate 18 18 Blood Pressure 159/84 H 150/70 H Pulse Oximetry 98 97 Oxygen Delivery 12/26/24 20:00 12/26/24 21:00 12/26/24 22:00 Temperature 98.2 F 98.1 F Pulse Rate 84 75 66 Pulse Rate [Bilateral Radial Palpation] Respiratory Rate 18 18 Blood Pressure 162/83 H 158/80 H Pulse Oximetry 98 98 Oxygen Delivery 12/26/24 22:00 12/27/24 00:00 12/27/24 00:02 Temperature 98.0 F Pulse Rate 67 65 78 Pulse Rate [Bilateral Radial Palpation] Respiratory Rate 14 Blood Pressure 140/78 Pulse Oximetry 99 Oxygen Delivery 12/27/24 02:00 12/27/24 04:00 12/27/24 04:21 Temperature 98.4 F Pulse Rate 62 56 L 89 Pulse Rate [Bilateral Radial Palpation] Respiratory Rate 16 Blood Pressure 134/66 Pulse Oximetry 99 Oxygen Delivery 12/27/24 06:00 12/27/24 08:00 12/27/24 08:00 Temperature 98.5 F Pulse Rate 66 66 79 Pulse Rate [Bilateral Radial Palpation] Respiratory Rate 14 Blood Pressure 174/89 H Pulse Oximetry 97 Oxygen Delivery 12/27/24 09:12 12/27/24 10:00 12/27/24 11:41 Temperature 98.0 F Pulse Rate 72 70 Pulse Rate [Bilateral Radial Palpation] Respiratory Rate 18 Blood Pressure 123/63 Pulse Oximetry 96 96 Oxygen Delivery Room Air 12/27/24 12:00 Temperature Pulse Rate 79 Pulse Rate [Bilateral Radial Palpation] Respiratory Rate Blood Pressure Pulse Oximetry Oxygen Delivery Intake/Output Intake/Output: Intake & Output 12/24/24 12/25/24 12/26/24 12/27/24 23:59 23:59 23:59 23:59 Intake Total 720 1358 Balance 720 1358 Meds/Results Medications: Active Medications Generic Name Dose Route Start Last Admin Trade Name Freq PRN Reason Stop Dose Admin Acetaminophen 650 mg 12/26/24 20:49 12/27/24 06:21 Acetaminophen 325 Mg Tablet PO 650 mg Q4H PRN Administration Mild Pain (1-3) or Fever Aspirin 81 mg 12/26/24 08:00 12/27/24 09:08 Aspirin 81 Mg Chewable Tablet PO 81 mg DAILY@0800 [facility] Administration Calcium Carbonate 200 mg 12/26/24 20:49 12/26/24 21:11 Calcium Carbonate (Tums) 500 Mg (200 Mg Elemental) PO 200 mg Q6H PRN Administration Indigestion Clopidogrel Bisulfate 75 mg 12/27/24 09:00 12/27/24 09:08 Clopidogrel Bisulfate 75 Mg Tablet PO 75 mg QAM [facility] Administration Famotidine 20 mg 12/26/24 21:00 12/27/24 09:08 Famotidine 20 Mg Tablet PO 20 mg Q12HR [facility] Administration Isosorbide Mononitrate 60 mg 12/27/24 09:00 12/27/24 09:08 Isosorbide Mononitrate 60 Mg Tab.Er.24h PO 60 mg QAM YONIS Administration Nitroglycerin 0.4 mg 12/26/24 20:49 Nitroglycerin Sl 0.4 Mg Tablet SUBLINGUAL Q5MIN PRN Chest Pain Ondansetron HCl 4 mg 12/26/24 04:50 Ondansetron Inj 4 Mg/2 Ml Vial IV PUSH Q4H PRN Nausea Pantoprazole Sodium 40 mg 12/27/24 09:00 12/27/24 09:07 Pantoprazole Sodium Iv 40 Mg Vial IV PUSH 40 mg Q12HR YONIS Administration Radiology Results: ITS Impressions Chest X-Ray 12/25/24 23:22 IMPRESSION: No focal infiltrate or effusion. Labs Labs: Laboratory Results - last 24 hr 12/25/24 12/27/24 11:57 04:45 WBC 7.5 RBC 4.32 Hgb 12.9 Hct 38.7 MCV 89.6 MCH 29.9 MCHC 33.3 RDW 13.2 Plt Count 216 MPV 9.8 Immature Gran % (Auto) 0.3 Neut % (Auto) 61.4 Lymph % (Auto) 27.3 [place] % (Auto) 8.1 Eos % (Auto) 2.4 Baso % (Auto) 0.5 Lymph # (Auto) 2.05 [place] # (Auto) 0.6 Eos # (Auto) 0.2 Baso # (Auto) 0.0 Abs Immat Gran (auto) 0.02 Absolute Neuts (auto) 4.6 Absolute Nucleated RBC 0.000 Nucleated RBC % 0.0 Sodium 139 Potassium 3.9 Chloride 110 H Carbon Dioxide 19 L Anion Gap 10 BUN 8 Creatinine 0.73 Estim Creat Clear Calc 122 Estimated GFR > 60 Glucose 96 Hemoglobin A1c 5.2 Calcium 8.8 Magnesium 1.9 Total Bilirubin 0.9 AST 18 ALT 15 Alkaline Phosphatase 57 Total Protein 7.0 Albumin 3.9
--- NOTE | 2025-01-06 08:25 | P.TS_ITS ---
Transfer Discharge Sum: Prov Provider Date of admission: 12/27/24 13:22 Primary care physician: Aleida Hu, PA Admitting clinician: Saundra Lagos MD Consults: 12/26/24 04:51 Consult to Physician Routine Comment: Consulting Provider: Soniya Crouch call person/MD group to consult: Cardiology Reason for consultation: Chest pain, elevated troponin Has provider been notified: Yes DS: Admitting Diagnosis Discharge Date 12/27/24 Admitting Diagnosis Chest pain DS: Discharge Diagnosis Discharge Diagnosis (1) NSTEMI (non-ST elevated myocardial infarction): Code(s): I21.4 - Non-ST elevation (NSTEMI) myocardial infarction Status: Acute (2) Coronary artery disease: Onset Date: ~02/2017 Code(s): I25.10 - Atherosclerotic heart disease of [place] coronary artery without angina pectoris Status: Acute Transfer Discharge Sum: Med Medications Active and Home Medications: Home Medications famotidine 40 mg tablet 20 mg PO TID PRN indegestion 07/11/20 [History Confirmed 12/26/24] aspirin 81 mg chewable tablet (Children's Aspirin) 81 mg PO DAILY@0800 #30 tabs 02/23/21 [Rx Confirmed 12/26/24] losartan 50 mg tablet 100 mg PO HS 12/26/24 [History Confirmed 12/27/24] alprazolam 0.25 mg tablet 0.25 mg PO DAILY PRN anxiety 12/27/24 [History Confirmed 12/27/24] Transfer Discharge Sum: Hosp Hospital Course Hospital course: Prem Rao is a 44 yo female with PMH of CAD s/p stents x2, and hypertension who presented to the ER on account of chest pain. Noted she has been having chest pain the past few weeks, substernal chest pressure, 7/10 in intensity, non radiating, intermittent however last night she noted pain was increased to discomfort level with lightheadedness which prompted her to present to the ER for proper eval and care. No vomiting, abd pain, diarrhea, dysuria, focal weakness or loss of consciousness Er eval notable for BP 178/95, T 97.4, RR 17, saturating 97% on room air . labs notable for Troponin 0.079 from 0.066, Cholesterol and Triglycerides, 209 and 214 respectively. Started on full dose lovenox and cardiology consulted prior to admission. patient underwent cardiac cath which showed multivessel in in LAD, RPDA and Diagonal. Cardiology recommended transfer for cardiothoracic surgery eval. Patient was t[facility]ferred to [facility] for CABG eval. SHe was stable on discharge Time Spent with Patient Time attestation: Total time spent providing and/or coordinating transfer services:
== END 2024-12-27 17:10 | disposition short-term general hospital (02) | DRG 282 ==
LOC: ANHED 12-26 04:52 → ANHIMU 12-26 06:23
PROVIDERS: Internal Medicine; Admitting Provider Internal Medicine; Emergency Provider Emergency Medicine; PCP Physician Assistant; Visit Provider Internal Medicine
PROC: 4A023N7 Measurement of Cardiac Sampling and Pressure, Left Heart, Percutaneous Approach (ICD-10-PCS; CPT 93454; principal; 2024-12-26 10:30)
PROC: 4A033BC Measurement of Arterial Pressure, Coronary, Percutaneous Approach (ICD-10-PCS; CPT 93571; 2024-12-26 10:30)
PROC: 4A033BC Measurement of Arterial Pressure, Coronary, Percutaneous Approach (ICD-10-PCS; CPT 75580; 2024-12-26 10:30)
DX: I21.4 Non-ST elevation (NSTEMI) myocardial infarction (principal); I25.10 Atherosclerotic heart disease of native coronary artery without angina pectoris; I10 Essential (primary) hypertension; I25.2 Old myocardial infarction; E78.5 Hyperlipidemia, unspecified; E66.9 Obesity, unspecified; F41.9 Anxiety disorder, unspecified; K21.9 Gastro-esophageal reflux disease without esophagitis; Z87.891 Personal history of nicotine dependence; Z79.02 Long term (current) use of antithrombotics/antiplatelets; Z95.5 Presence of coronary angioplasty implant and graft; Z28.21 Immunization not carried out because of patient refusal; Z79.82 Long term (current) use of aspirin
CPT/HCPCS: 36415; 71046; 80053; 80061; 81025; 83036; 83690; 83735; 84484; 85025; 85610; 85730; 93005; 93306; 93454; 93571; 93572; 96372; 96374; 99285; A9270; C1769; C1887; C1894; G0378; J0583; J1644; J1650; J2003; J2250; J2305; J2470; J3010; J7030; J7040; Q9957

== ENCOUNTER 2025-02-17 16:04 | Emergency (ER) | payer OTHER, MEDICAID, SELFPAY ==
[2025-02-17] VITALS (24 sets, daily range): BP systolic 147–180; BP diastolic 88–105; PULSE 78–101; RESP 14–29; TEMP 36.6; O2SAT 95–100
--- NOTE | ~2025-02-17 | XR_ITS ---
EXAMINATION: XR chest 2V Exam Date/Time: 02/17/2025 16:20 CDT HISTORY: chest pain Comparison: 12/25/2024. RESULT: Lines, tubes, and devices: Intact sternal wires and plates. Mediastinal surgical clips. Lungs and pleura: Clear. Cardiomediastinal silhouette: Stable. Other: No acute osseous or upper abdominal finding. IMPRESSION: No acute cardiopulmonary process. Reviewed, dictated and finalized at location K.
--- NOTE | 2025-02-17 16:06 | ECG_ITS ---
Test Date: 2025-02-17 16:14:29 Measurements Intervals [place] Rate: 87 P: 49 LA: 146 QRS: 57 QRSD: 92 T: 115 QT: 370 QTc: 447 Interpretive Statements SINUS RHYTHM POSSIBLE LEFT ATRIAL ENLARGEMENT [-0.1mV P WAVE IN V1/V2] PROBABLE INFERIOR MYOCARDIAL INFARCTION , PROBABLY OLD [35 ms Q WAVE IN II/aVF] NONSPECIFIC T WAVE ABNORMALITY NOW PRESENT Compared to ECG 12/26/2024 05:10:34 Myocardial infarct finding now present T wave abnormality now present Electronically Signed On 02-18-2025 11:48:10 CDT by Roger Turcios M.D.
--- OUTSIDE RECORDS SUMMARY | 2025-02-17 16:07 | XMS_ITS | Patient Health Record ---
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 Role Phone Cynthia Baker Primary Care Provider [phone] Dino Israel Unavailable Allergies Allergen (clinical drug ingredient) Drug/Non Drug Allergy documented on EMR Reaction Allergy Type Onset Date Status erythromycin Erythromycin hives Drug Allergy A ctive Reason For Referral No Information Medications Medication SIG (Take, Route, Frequency, Duration) Notes Start Date End Date Status Propranolol HCl 10 MG 1 tablet on an emp ty stomach Orally every 12 hrs Active Pantoprazole Sodium 20 MG 1 tablet Orally Active Gabapentin 100 MG as directed Orally Active Methocarbamol 750 MG 1 tablet Orally Active Plavix 75 MG 1 tablet Orally Once a day Active Acetaminophen Active Aspirin 81 81 MG 1 tablet Orally Once a day Not-Taking Senna Active traZODone HCl Not-Ta linden ALPRAZolam 0.25 MG 1 tablet Orally Twic e a day as needed for 30 days 01/16/2025 Active Social History Tobacco Use: Social History Observation Description Date Details (start date - stop date) Former Smoker 04/10/1995 - 12/09/2021 Dont use, Tobacco Use/Smoking Question Answer Notes Additional Findings: Tobacco User e-Cigarette PRAPARE Question Answer Notes Date Completed/Updated: 02/16/2025 What is your current housing situation? I have h ousing Are you worried about losing your housing? No What is the highest level of school that you have finished? 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 Check all that apply Utilities Has lack of transportation k ept you from medical appointments, meetings, work or from getting things needed for daily living? No How often do you see or talk to people that you care about and feel close to? (For example: talking to friends on the phone, visiting friends or family, going to yazdanism or club meetings) More than 5 times a week How stressed are you? Stress is when someone feels tense, nervous, anxious, or can\t sleep at night because their mind is troubled Somewhat In the past year have you sp ent more than 2 nights in a row in a penitentiary, usp, mcfp center, or juvenile correctional facility? No Do you feel physically and e motionally safe where you currently live? Yes In the past year, have you b een afraid of your partner or ex-partner? No PRAPARE Score: 4 Tobacco Control (Standard) Question Answer Notes Tobacco use: Former smoker Additional Findings: Tobacco user e-ciga rette,Heavy cigarette smoker (20-39 cigs/day) When did you start smoking? 04/10/1995 When did you stop smoking? 12/09/2021 How long has it been since y ou last smoked? Greater than 10 years Problems Problem Type SNOMED Code ICD Code Onset Dates Problem Status W/U Status Risk Notes Problem Tobacco user (110707086) Nicotine dependence, unspecified, uncomplicated (F17.200) Active confirmed Problem Generalized anxiety disorder (26068235) Generalized anxiety disorder (F41.1) 07/19/20 Active confirmed Problem Posttraumatic stress disorder (95869518) PTSD (post-traumatic stress disorder) (F43.10) 07/19/20 Active confirmed Problem Panic disorder with agoraphobia (44474006) Panic disorder with agoraphobia (F40.01) 07/19/20 Active confirmed Encounters Encounter Location Date Provider Diagnosis [address] [address] 06/27/2024 Cynthia Baker Nicotine dependence, unspecified, uncomplicated F17.200 ; Panic disorder with agoraphobia F40.01 ; Generalized anxiety disorder F41.1 and PTSD (post-traumatic stress disorder) F43.[address] [place] [address] 07/29/2024 Kenriandressa Baker Nicotine dependence, unspecified, uncomplicated F17.200 ; Panic disorder with agoraphobia F40.01 ; Generalized anxiety disorder F41.1 and PTSD (post-traumatic stress disorder) F43.10 [facility] [address], [place] [address] 08/29/2024 Kenriandressa Baker Nicotine dependence, unspecified, uncomplicated F17.200 ; Panic disorder with agoraphobia F40.01 ; Generalized anxiety disorder F41.1 and PTSD (post-traumatic stress disorder) F43.10 [facility] [address] [place] [id number] 01/16/2025 Cynthia Baker Nicotine dependence, unspecified, uncomplicated F17.200 ; Panic disorder with agoraphobia F40.01 ; Generalized anxiety disorder F41.1 and PTSD (post-traumatic stress disorder) F43.10 [facility] [address] [place] [id number] 07/01/2024 Cynthia Baker [address] [place] [address] 08/20/2024 Dino Israel [address] [address] 01/29/2025 Cynthia Baker [address] [place] [address] 02/17/2025 Cynthia Baker Assessments Encounter Date Diagnosis (ICD Code) Assessment Notes Treatment Notes Treatment Clinical Notes Section Notes 06/27/2024 Nicotine dependence, unspecified, uncomplicated (ICD-10 - F17.200) 07/29/2024 Nicotine dependence, unspecified, uncomplicated (ICD-10 - F17.200) 08/29/2024 Nicotine dependence, unspecified, uncomplicated (ICD-10 - F17.200) 01/16/2025 Nicotine dependence, unspecified, uncomplicated (ICD-10 - F17.200) 06/27/2024 Panic disorder with agoraphobia (ICD-10 - F40.01) 07/29/2024 Panic disorder with agoraphobia (ICD-10 - F40.01) 08/29/2024 Panic disorder with agoraphobia (ICD-10 - F40.01) 01/16/2025 Panic disorder with agoraphobia (ICD-10 - F40.01) 06/27/2024 Generalized anxiety disorder (ICD-10 - F41.1) 07/29/2024 Generalized anxiety disorder (ICD-10 - F41.1) 01/16/2025 Generalized anxiety disorder (ICD-10 - F41.1) 08/29/2024 [...] who presents today over phone, in the [facility] for psychiatric f/u. Previously seen on [...] or be administered own oral medications per [employer] protocols. Provided informed consent with understanding of side effects, adverse effects, risks and benefits as well as alternative treatments as previously discussed and with the above recommended medications & other aspects of the treatment program. Agrees to return sooner if symptoms worsen or suicidal or homicidal ideations occur. 01/16/2025 PTSD (post-traumatic stress disorder) (ICD-10 - F43.10) [...] April 2023. Today's visit: Patient is a 44-year-old female who presents today over [facility], in the [facility] for psychiatric f/u. Previously seen on Aug, 2024. Reports recent quadruple bypass hospital at [facility] December 2024 for elevated troponin and four blockages. Has started taking alprazolam as needed for anxiety and sleep which she is finding to be helpful; denies side effects. Did not trial Viibryd; will discontinue for now. Encourage pt to continue with exposure therapy as discussed through her therapy appts with [facility]. Patient continues to appear motivated for treatment. No acute safety concerns at the time of this appt, she is agreeable to treatment plan and was provided an opportunity to ask questions. May self-administer medications or be administered own oral medications per [employer] protocols. Provided informed consent with understanding of [...] who presents today over phone, in the [facility] for psychiatric f/u. Previously seen on [...] or be administered own oral medications per [facility] protocols. Provided informed consent with understanding of [...] who presents today over phone, in the [facility] for psychiatric f/u. Previously seen on [...] or be administered own oral medications per [facility] protocols. Provided informed consent with understanding of [...] End Date MEDICAID [address] [place] [address] [id number] Prem Rao Self - patient is the insured 3 [employer] [address] [address] [place] [address] [id number] Prem Rao Self - patient is the insured 3 3 [employer]ICA[employer] [address] [place] [address] [id number] Prem Rao Self - patient is the insured 3 Medical (General) History Medical History History ICD Code heart disease Surgical History Surgery Date(Month/Year) stent in heart 2020 stent in heart 2021 Quadruple bypass surgery 2024 Hospitalization History Reason Date(Month/Year) Heart surgery Dec 2024 child 2001 heart attack 12/2021 heart attack 02/2021
--- OUTSIDE RECORDS SUMMARY | 2025-02-17 16:07 | XMS_ITS | Clinical Summary ---
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 Name Role Phone Aleida Hu Primary Care Provider + Didier Quispe MD Unavailable [phone] Angelique Durant NP Unavailable [phone] Allergies Active Allergy Reactions Criticality Noted Date Comments Erythromycin Other (See comments) Low 05/03/2019 States she was a baby and was told she was allergic Metoprolol Dizziness Low 12/30/2024 Lxodlzg-Biz-Ejm Reductase Inhibitors Muscle pain Medium 12/30/2024 Medications aspirin 81 mg enteric coated tablet Take 1 tablet (81 mg total) by mouth daily Active clopidogreL (PLAVIX) 75 mg tabletIndicatio ns:Presence of stent in coronary artery Take 1 tablet (75 mg total) by mouth daily 30 tablet 1 5 Active acetaminophen 500 mg capsuleIndicati ons:Pain Take 2 capsules (1,000 mg total) by mouth every 6 (six) hours 5 Active polyethylene glycol (MIRALAX) 17 gram/dose bulk powderIndicatio ns:constipation Take 17 g by mouth 2 (two) times a day 5 Active propranoloL (INDERAL) 10 mg tablet Take 1 tablet (10 mg total) by mouth 2 (two) times a day 60 tablet 1 5 03/07/[address] (PROTONIX) 40 mg EC tabletIndicatio ns:Stress Ulcer Prophylaxis Take 1 tablet (40 mg total) by mouth daily 30 tablet 1 5 03/13/20 25 Active evolocumab (Repatha SureClick) 140 mg/mL pen injector Inject 1 mL (140 mg total) under the skin every 14 (fourteen) days 2 mL 3 5 Active methocarbamoL (ROBAXIN) 750 mg tablet Take 1 tablet (750 mg total) by mouth 3 (three) times a day 28 tablet 5 Active evolocumab (REPATHA) syringe syringe Inject 1 mL (140 mg total) under the skin every 14 (fourteen) days 2 mL 11 5 01/30/20 25 Discontinue d(Alternate therapy) oxyCODONE (ROXICODONE) 5 mg immediate release tabletIndicatio ns:Pain Take 1 tablet (5 mg total) by mouth every 6 (six) hours as needed for pain 28 tablet 5 02/07/20 25 Discontinue d(Therapy completed) furosemide (LASIX) 40 mg tablet Take 1 tablet (40 mg total) by mouth daily for 14 days 14 tablet 5 02/07/20 25 Discontinue d(Therapy completed) gabapentin (NEURONTIN) 100 mg capsuleIndicati ons:Postoperati ve Acute Pain Take 1 capsule (100 mg total) by mouth 3 (three) times a day for 14 days 42 capsule 5 02/07/20 25 Discontinue d(Therapy completed) lidocaine (ASPERCREME) 4 % adhesive patch,medicated Place 2 patches on the skin daily for 12 hours 5 02/07/20 25 Discontinue d(Therapy completed) potassium chloride ER (KLOR-CON) 20 mEq CR tablet Take 1 tablet (20 mEq total) by mouth daily for 14 days With Lasix 14 tablet 5 02/07/20 25 Discontinue d(Therapy completed) senna-docusate (PERICOLACE) 8.6-50 mg Take 2 tablets by mouth 2 (two) times a day for 14 days 56 tablet 5 02/07/20 25 Discontinue d(Therapy completed) traZODone (DESYREL) 50 mg tablet Take 1 tablet (50 mg total) by mouth nightly for 14 days 14 tablet 5 02/07/20 25 Discontinue d(Therapy completed) methocarbamoL (ROBAXIN) 750 mg tablet Take 1 tablet (750 mg total) by mouth 3 (three) times a day for 14 days 42 tablet 1 5 02/01/20 25 Active Problems Problem Noted Date Diagnosed Date Coronary artery disease (CAD) excluded Coronary artery disease of n ative heart with stable angina pectoris 12/30/2024 NSTEMI (non-ST elevated myocardial infarction) 0 12/27/2024 Angina pectoris, unspecified 04/24/2023 Body mass index 40.0-44.9, adult ([facility]) 01/09 Morbid (severe) obesity due to excess calories 0 02/28/2022 Coronary artery disease invo lving beaver coronary artery of beaver heart without angina pectoris 05/12/2021 History of coronary artery stent placement 05/12 Encounters Date Type Department Care Team Description 02/11/2025 Orders Only [facility] Surgery [address] [place] [address] [address] [place] [address] Violeta Morelos NP Hx of CABG (Primary Dx) 02/09/2025 Orders Only [facility] Surgery [address] [place] [address] [address] [place] [address] Herrera Lin NP Coronary artery disease involving beaver coronary artery of beaver heart without angina pectoris (Primary Dx) 02/06/2025 9:00 AM CDT Office Visit [facility] Surgery [address] [place] [address] [address] [place] [address] Didier Quispe MD Coronary artery disease involving beaver coronary artery of beaver heart without angina pectoris 01/29/2025 Telephone [facility] Medical [facility] Cardiology [address] [facility] [address] [place] [phone] Remi Gomes MD 01/17/2025 Orders Only [facility] Surgery [address] [place] [address] [address] [place] [address] Violeta Morelos NP 01/13/2025 [facility] Post Discharge Follow up phone call [address] [address] Iza Vasquez 01/12/2025 Documentation [facility] Surgery [address] [facility] [address] [place] [phone] Dayne Moura NP 01/12/2025 Orders Only [facility] Surgery [address] [facility] [address] [place] [phone] Dayne Moura NP 01/01/2025 8:51 AM CDT Anesthesia Event [facility] Operating Room [id number] [place] [address] Fifi Keys MD Becker, Scott C 01/01/2025 8:20 AM CDT - 01/01/2025 2:05 PM CDT Surgery [facility] Operating Room [id number] [place] [id number] Didier Quispe MD CORONARY ARTERY BYPASS GRAFT - INTERNAL MAMMARY/RADIAL ARTERY/SAPHENOUS VEIN GRAFT - LEG 01/01/2025 Orders Only [facility] Cardiology [address] [place] [phone] Roger Turcios MD 12/27/2024 5:50 PM CDT - 01/06/2025 6:42 PM CDT Hospital Encounter [facility] [id number] [place] [address] Gus Higgins DO Rudomiotov, Olga, MD Ray, Shuddhadeb, MD Coronary artery disease involving beaver coronary artery of beaver heart without angina pectoris (Primary Dx); Presence of stent in coronary artery Discharge Disposition: Discharge to home, home health skilled care 12/27/2024 Orders Only [facility] Health Information Management [address] [place] [address] Roger Turcios MD 12/26/2024 Telephone [facility] Cardiology [address] [place] [address] Roger Turcios MD from Last 3 Months Surgical History Surgery Date Site/Laterality Comments CORONARY ANGIOPLASTY 02/21/2021 Medical History Medical History Date Comments Coronary artery disease ST elevation myocardial infarction (STEMI) of in ferior wall (HCC) 02/21/2021 PCOS (polycystic ovarian syndrome) Hypertension GERD [...] Tobacco: Never Tobacco Cessation:Counseling Given: Not Answered [facility] Utilities Answer Date Recorded In the past 12 months has th e [employer], [employer], oil, or water Tadpoles threatened to shut off services in your home? No 12/30/2024 Social Connection and Isolat ion Panel [NHANES] Answer Date Recorded In a typical week, how many times do you talk on the phone with family, friends, or neighbors? More than three times a week 12/30/2024 How often do you get togethe r with friends or relatives? Once a week 12/30/2024 How often do you attend chur ch or yarsani services? Never 12/30/2024 Do you belong to any clubs o r organizations such as caodaism groups, unions, fraternal or athletic groups, or school groups? No 12/30/2024 How often do you attend meet ings of the clubs or organizations you belong to? Never 12/30/2024 Are you , , di vorced, , never , or living with a partner? Never 12/30/2024 Overall Financial Resource Strain (CARDIA) Answe r Date Recorded How hard is it for you to pa y for the very basics like food, housing, medical care, and heating? Somewhat hard 12/30/2024 Hunger Vital Sign Answer Date Recorded Within the past 12 months, y ou worried that your food would run out before you got the money to buy more. Never true 12/31/19 Within the past 12 months, t he food you bought just didn't last and you didn't have money to get more. Never true 12/30/2024 PRAPARE - Transportation Answer Date Re corded In the past 12 months, has l ack of transportation kept you from medical appointments or from getting medications? No 12/07 In the past 12 months, has l ack of transportation kept you from meetings, work, or from getting things needed for daily living? No 12/30/2024 Housing Stability Vital Sign Answer Dimitris e Recorded In the last 12 months, was t here a time when you were not able to pay the mortgage or rent on time? No 12/30/2024 In the past 12 months, how m any times have you moved where you were living? 0 12/30/2024 At any time in the past 12 m [place], were you homeless or living in a mcc (including now)? No 12/30/2024 Personal Safety Answer Date Recorded Have you ever been in or are you currently in a harmful physical or emotional relationship or is someone making you feel afraid or unsafe? Denies 12/27/2024 Comments No Sex and Gender Information Value [...] Sign Reading Time Taken Comments Blood Pressure 155/100 02/06/2025 9:43 AM CDT Pulse 80 02/06/2025 9:43 AM CDT Temperature 36.5 C (97.7 F) 01/06/2025 4:30 PM CDT Respiratory Rate 18 01/06/2025 4:30 PM CDT Oxygen Saturation 96% 01/06/2025 4:30 PM CDT Inhaled Oxygen Concentration - - Weight 114.7 kg (252 lb 12.8 oz) 01/05/2025 5:57 AM CDT Height 175.3 cm (5' 9 ) 12/27/2024 6:05 PM CDT Body Mass Index 37.33 12/27/2024 6:05 PM CDT Plan of Treatment Health Maintenance Due Date Last Done Comments Cervical Cancer Screening 1982 Depression Screening 1982 Hepatitis C Screening 1982 DTaP/Tdap/Td Vaccine (1 - Tdap) 1993 Varicella Vaccines (1 of 2 - 13+ 2-dose series) 1995 Hepatitis B Screening 2000 Regular Well Visit/Exam 18-64 2000 Pneumococcal vaccine <65 (1 of 2 - PCV) 2001 Breast Cancer Screening-Mammogram 12/21/2023 023 Influenza Vaccine (Season Ended) 2025 HPV Vaccines Aged Out No longer eligi ble based on patient's age to complete this topic Medical Devices Implanted Type Area Employment Specialist Device Identifier Shelf Expiration Date Model / Serial / Lot [employer] Plate Bone Low Profile 6 Hole O Shape Sternum Ti 115.104.06 - [id number] Implanted:Qty: 1 on 01/01/2025 by Didier Quispe MD at [facility] Plate N/A: Sternum [employer] 115.104.06 / / [employer] Plate Bone Low Profile 4 Hole Box Sternum Ti 115.103.04 - [id number] Implanted:Qty: 1 on 01/01/2025 by Didier Quispe MD at [facility] Plate N/A: Sternum [employer] 115.103.04 / / [employer] Plate Bone Low Profile 6 Hole H Shape Sternum Ti 115.102.06 - [id number] Implanted:Qty: 1 on 01/01/2025 by Didier Quispe MD at [facility] Plate N/A: Sternum [employer] 115.102.06 / / [employer] Screw Bone Slf Drl Full Thread Locking 3.5x18mm Ti 100.035.18 - [id number] Implanted:Qty: 16 on 01/01/2025 by Didier Quispe MD at [facility] Screw N/A: Sternum [employer] 100.035.18 / / Explanted Type Area Employment Specialist Device Identifier Shelf Expiration Date Model / Serial / Lot [employer] Shunt Coronary Soft Conical Bulb [place] [id number] Silicone [id number] - [id number] - [id number] Explanted:Qt y: 1 on 01/01/2025 by Didier Quispe MD at [facility] Intraatrial Shunt Device N/A: Coronary Artery [employer] 02/20/2027 [id number] / 00 / [id number] Procedures Procedure Name Priority Date/Time Associated Diagnosis Comments XR CHEST 1 VIEW IP Routine 01/06/2025 9:17 AM CDT EGFR Routine 01/06/2025 6:25 AM CDT CBC WITHOUT DIFFERENTIAL Routine 01/06/2025 6:25 AM CDT BASIC METABOLIC PANEL Routine 01/06/2025 6:25 AM CDT XR CHEST PA LATERAL 2 VIEWS IP Routine 01/05/2025 8:42 AM CDT EGFR Routine 01/05/2025 5:13 AM CDT APTT Routine 01/05/2025 5:13 AM CDT PROTIME-INR Routine 01/05/2025 5:13 AM CDT CBC WITHOUT DIFFERENTIAL Routine 01/05/2025 5:13 AM CDT BASIC METABOLIC PANEL Routine 01/05/2025 5:13 AM CDT POCT GLUCOSE DEVICE Routine 01/04/2025 9 :45 PM CDT POCT GLUCOSE DEVICE Routine 01/04/2025 7 :43 AM CDT XR CHEST 1 VIEW IP Routine 01/04/2025 6:02 AM CDT EGFR Routine 01/04/2025 5:10 AM CDT MAGNESIUM Routine 01/04/2025 5:10 AM CDT CBC WITHOUT DIFFERENTIAL Routine 01/04/2025 5:10 AM CDT BASIC METABOLIC PANEL Routine 01/04/2025 5:10 AM CDT POCT GLUCOSE DEVICE Routine 01/03/2025 8 :07 PM CDT EGFR Timed 01/03/2025 1:35 PM CDT CALCIUM,IONIZED, WHOLE BLOOD Timed 01/03/2025 1:35 PM CDT MAGNESIUM Timed 01/03/2025 1:35 PM CDT RENAL FUNCTION PANEL Timed 01/03/2025 1:35 PM CDT POCT GLUCOSE DEVICE Routine 01/03/2025 1 2:18 PM CDT POCT GLUCOSE DEVICE Routine 01/03/2025 7 :37 AM CDT CRITICAL CARE Routine 01/03/2025 6:57 AM CDT Coronary artery disease involving beaver coronary artery of beaver heart without angina pectoris XR CHEST 1 VIEW IP Routine 01/03/2025 6:07 AM CDT POCT GLUCOSE DEVICE Routine 01/03/2025 3 :49 AM CDT EGFR Routine 01/03/2025 3:49 AM CDT OXYHEMOGLOBIN, CENTRAL VENOUS Timed 01/03/2025 3:49 AM CDT CALCIUM,IONIZED, WHOLE BLOOD Routine 01/03/2025 3:49 AM CDT MAGNESIUM Routine 01/03/2025 3:49 AM CDT CBC WITHOUT DIFFERENTIAL Routine 01/03/2025 3:49 AM CDT BASIC METABOLIC PANEL Routine 01/03/2025 3:49 AM CDT POCT GLUCOSE DEVICE Routine 01/03/2025 1 2:03 AM CDT CRITICAL CARE Routine 01/02/2025 9:29 PM CDT Coronary artery disease involving beaver coronary artery of beaver heart without angina pectoris CALCIUM,IONIZED, WHOLE BLOOD STAT 01/02/2025 8:56 PM CDT BLOOD GAS, ARTERIAL STAT 01/02/2025 8 :56 PM CDT XR CHEST 1 VIEW ED Urgent/IP Urgent 01/02/2025 8:53 PM CDT POCT GLUCOSE DEVICE Routine 01/02/2025 7 :42 PM CDT POCT GLUCOSE DEVICE Routine 01/02/2025 5 :33 PM CDT ECG 12-LEAD STAT 01/02/2025 4:58 PM CDT EGFR Timed 01/02/2025 1:31 PM CDT CBC WITHOUT DIFFERENTIAL Routine 01/02/2025 1:31 PM CDT CALCIUM,IONIZED, WHOLE BLOOD Timed 01/02/2025 1:31 PM CDT MAGNESIUM Timed 01/02/2025 1:31 PM CDT RENAL FUNCTION PANEL Timed 01/02/2025 1:31 PM CDT POCT GLUCOSE DEVICE Routine 01/02/2025 1 2:12 PM CDT POCT GLUCOSE DEVICE Routine 01/02/2025 1 0:25 AM CDT POCT GLUCOSE DEVICE Routine 01/02/2025 8 :27 AM CDT ECG 12-LEAD STAT 01/02/2025 7:22 AM CDT CRITICAL CARE Routine 01/02/2025 6:53 AM CDT Coronary artery disease involving beaver coronary artery of beaver heart without angina pectoris POCT GLUCOSE DEVICE Routine 01/02/2025 6 :08 AM CDT XR CHEST 1 VIEW IP Routine 01/02/2025 6:07 AM CDT POCT GLUCOSE DEVICE Routine 01/02/2025 5 :06 AM CDT POCT GLUCOSE DEVICE Routine 01/02/2025 4 :05 AM CDT EGFR Routine 01/02/2025 3:13 AM CDT DIFFERENTIAL AUTO Routine 01/02/2025 3:1 3 AM CDT BLOOD GAS, ARTERIAL Routine 01/02/2025 3 :13 AM CDT OXYHEMOGLOBIN, PULMONARY ARTERY Timed 01/02/2025 3:13 AM CDT LACTATE Timed 01/02/2025 3:13 AM CDT MAGNESIUM Routine 01/02/2025 3:13 AM CDT BASIC METABOLIC PANEL Routine 01/02/2025 3:13 AM CDT CBC WITH AUTO DIFFERENTIAL Routine 01/02/2025 3:13 AM CDT POCT GLUCOSE DEVICE Routine 01/02/2025 3 :08 AM CDT POCT GLUCOSE DEVICE Routine 01/02/2025 2 :03 AM CDT POCT GLUCOSE DEVICE Routine 01/02/2025 1 :06 AM CDT POCT GLUCOSE DEVICE Routine 01/01/2025 1 1:57 PM CDT EXTUBATION Routine 01/01/2025 11:55 PM CDT POCT GLUCOSE DEVICE Routine 01/01/2025 1 0:57 PM CDT POCT GLUCOSE DEVICE Routine 01/01/2025 9 :29 PM CDT EGFR Timed 01/01/2025 7:48 PM CDT POTASSIUM, WHOLE BLOOD STAT 01/01/2025 7:48 PM CDT CBC WITHOUT DIFFERENTIAL Timed 01/01/2025 7:48 PM CDT CALCIUM,IONIZED, WHOLE BLOOD Timed 01/01/2025 7:48 PM CDT MAGNESIUM Timed 01/01/2025 7:48 PM CDT BASIC METABOLIC PANEL Timed 01/01/2025 7:48 PM CDT BLOOD GAS, ARTERIAL Timed 01/01/2025 7 :48 PM CDT POCT GLUCOSE DEVICE Routine 01/01/2025 7 :46 PM CDT CRITICAL CARE Routine 01/01/2025 7:43 PM CDT Coronary artery disease involving beaver coronary artery of beaver heart without angina pectoris POCT GLUCOSE DEVICE Routine 01/01/2025 6 :15 PM CDT POCT GLUCOSE DEVICE Routine 01/01/2025 5 :16 PM CDT POCT GLUCOSE DEVICE Routine 01/01/2025 4 :05 PM CDT XR CHEST 1 VIEW Critical/Life-T hreatening 01/01/2025 3:54 PM CDT LACTATE STAT 01/01/2025 3:41 PM CDT CALCIUM,IONIZED, WHOLE BLOOD STAT 01/01/2025 3:41 PM CDT PHOSPHORUS STAT 01/01/2025 3:41 PM CDT MAGNESIUM STAT 01/01/2025 3:41 PM CDT EGFR STAT 01/01/2025 3:40 PM CDT APTT STAT 01/01/2025 3:40 PM CDT PROTIME-INR STAT 01/01/2025 3:40 PM CDT CBC WITHOUT DIFFERENTIAL Timed 01/01/2025 3:40 PM CDT BLOOD GAS, ARTERIAL Timed 01/01/2025 3 :40 PM CDT BASIC METABOLIC PANEL STAT 01/01/2025 3:40 PM CDT POCT GLUCOSE DEVICE Routine 01/01/2025 3 :06 PM CDT CRITICAL CARE Routine 01/01/2025 3:05 PM CDT Coronary artery disease involving beaver coronary artery of beaver heart without angina pectoris POC BLOOD GAS AND CHEMISTRIES, ARTERIAL Routine 01/01/2025 2:38 PM CDT POC BLOOD GAS AND CHEMISTRIES, ARTERIAL Routine 01/01/2025 2:01 PM CDT POC BLOOD GAS AND CHEMISTRIES, ARTERIAL Routine 01/01/2025 1:44 PM CDT POCT ACTIVATED CLOTTING TIME, HIGH RANGE Routine 01/01/2025 1:43 PM CDT POC BLOOD GAS AND CHEMISTRIES, ARTERIAL Routine 01/01/2025 1:00 PM CDT POCT ACTIVATED CLOTTING TIME, HIGH RANGE Routine 01/01/2025 12:58 PM CDT PLATELET COUNT STAT 01/01/2025 12:50 PM CDT POC BLOOD GAS AND CHEMISTRIES, ARTERIAL Routine 01/01/2025 12:35 PM CDT POCT ACTIVATED CLOTTING TIME, HIGH RANGE Routine 01/01/2025 12:32 PM CDT POC BLOOD GAS AND CHEMISTRIES, ARTERIAL Routine 01/01/2025 12:06 PM CDT POCT ACTIVATED CLOTTING TIME, HIGH RANGE Routine 01/01/2025 12:04 PM CDT POC BLOOD GAS AND CHEMISTRIES, ARTERIAL Routine 01/01/2025 11:48 AM CDT POCT ACTIVATED CLOTTING TIME, HIGH RANGE Routine 01/01/2025 11:46 AM CDT POCT ACTIVATED CLOTTING TIME, HIGH RANGE Routine 01/01/2025 10:50 AM CDT ANESTHESIA CENTRAL VENOUS LINE PLACEMENT Routine 01/01/2025 10:03 AM CDT ANESTHESIA CENTRAL VENOUS LINE PLACEMENT Routine 01/01/2025 10:03 AM CDT MN AN ELECTIVE ENDOTRACHEAL AIRWAY Routine 01/01/2025 10:02 AM CDT POC BLOOD GAS AND CHEMISTRIES, ARTERIAL Routine 01/01/2025 9:44 AM CDT POCT ACTIVATED CLOTTING TIME, HIGH RANGE Routine 01/01/2025 9:41 AM CDT ANESTHESIA DEISI Routine 01/01/2025 9:40 AM CDT ANESTHESIA ARTERIAL LINE PLACEMENT Routine 01/01/2025 8:53 AM CDT CORONARY ARTERY BYPASS GRAFT - INTERNAL MAMMARY/RADIAL ARTERY/SAPHENOUS VEIN GRAFT - LEG 01/01/2025 8:50 AM CDT Coronary artery disease of beaver heart with stable angina pectoris, unspecified vessel or lesion type EGFR Routine 01/01/2025 3:53 AM CDT BASIC METABOLIC PANEL Routine 01/01/2025 3:53 AM CDT CBC WITHOUT DIFFERENTIAL Routine 01/01/2025 3:53 AM CDT B CHECK SAMPLE STAT 12/31/2024 10:02 AM CDT TYPE AND SCREEN Timed 12/31/2024 9:16 AM CDT PREPARE RBC STAT 12/31/2024 8:44 AM CDT EGFR Routine 12/31/2024 5:56 AM CDT BASIC METABOLIC PANEL Routine 12/31/2024 5:56 AM CDT CBC WITHOUT DIFFERENTIAL Routine 12/31/2024 5:56 AM CDT URINALYSIS, MICROSCOPIC ONLY Routine 12/30/2024 6:44 PM CDT HCG, URINE, QUALITATIVE Routine 12/30/2024 6:44 PM CDT URINALYSIS AND REFLEX TO MICROSCOPIC AND CULTURE Routine 12/30/2024 6:44 PM CDT EGFR Routine 12/30/2024 3:25 AM CDT BASIC METABOLIC PANEL Routine 12/30/2024 3:25 AM CDT CBC WITHOUT DIFFERENTIAL Routine 12/30/2024 3:25 AM CDT HEMOGLOBIN A1C Add-On 12/30/2024 3:25 AM CDT TRANSTHORACIC ECHO (TTE) COMPLETE W DOPPLER/CF WO CONTRAST Routine 12/29/2024 12:45 PM CDT EGFR Routine 12/29/2024 4:11 AM CDT BASIC METABOLIC PANEL Routine 12/29/2024 4:11 AM CDT CBC WITHOUT DIFFERENTIAL Routine 12/29/2024 4:11 AM CDT ECG 12-LEAD Routine 12/28/2024 11:03 AM CDT PHOSPHORUS Add-On 12/28/2024 12:42 AM CDT MAGNESIUM Add-On 12/28/2024 12:42 AM CDT TROPONIN T HIGH-SENSITIVITY 6-HOUR Timed 12/28/2024 12:42 AM CDT TROPONIN T HIGH-SENSITIVITY 4-HR Timed 12/27/2024 10:25 PM CDT TROPONIN T HIGH-SENSITIVITY 2-HOUR Timed 12/27/2024 8:37 PM CDT EGFR STAT 12/27/2024 6:48 PM CDT DIFFERENTIAL AUTO STAT 12/27/2024 6:4 8 PM CDT TROPONIN T HIGH-SENSITIVITY SERIES (BASELINE, 2HR, 4HR, 6HR) Routine 12/27/2024 6:48 PM CDT COMPREHENSIVE METABOLIC PANEL STAT 12/27/2024 6:48 PM CDT CBC WITH AUTO DIFFERENTIAL STAT 12/27/2024 6:48 PM CDT CARDIOLOGY DOCUMENT SCAN Routine 12/27/2024 1:09 PM CDT CARDIOLOGY DOCUMENT SCAN 12/27/2024 CARDIOLOGY DOCUMENT SCAN Routine 12/26/2024 1:06 PM CDT CARDIOLOGY DOCUMENT SCAN Routine 12/26/2024 1:02 PM CDT DIAGNOSTIC MAMMOGRAM BILATERAL W LEANDRO Schedule Routine, Read Routine (OP Routine) 12/20/2022 11:00 AM CDT Nipple discharge from Last 3 Months or Most Recently Relevant to Health Maintenance Results * XR Chest 1 View (01/06/2025 9:17 AM CDT) Anatomical Region Laterality Modality Body, Chest N/A Computed Radiogr aphy 01/06/2025 9:27 AM CDT Impressions 01/06/2025 9:27 AM CDT No active disease. Electronically signed by: Nilson Solomon M.D. Narrative 01/06/2025 9:27 AM CDT EXAMINATION: XR CHEST 1 VIEW HISTORY: The patient is a 44-year-old female who has had bypass surgery. Comparison made with the previous study dated 01/05/2025. TECHNIQUE: AP portable view of the chest. FINDINGS: The distal tip of the retracted [place] catheter is in the superior vena cava. Lungs clear other than for subsegmental atelectasis in the medial left lower lobe. Cardiovascular structures unremarkable. Procedure Note Nilson Solomon MD - 01/06/2025 EXAMINATION: XR CHEST 1 VIEW HISTORY: The patient is a 44-year-old female who has had bypass surgery. Comparison made with the previous study dated 01/05/2025. TECHNIQUE: AP portable view of the chest. FINDINGS: The distal tip of the retracted [place] catheter is in the superior vena cava. Lungs clear other than for subsegmental atelectasis in the medial left lower lobe. Cardiovascular structures unremarkable. IMPRESSION: No active disease. Electronically signed by: Nilson Solomon M.D. Herrera Lin FINANCIAL ANALYSIS CONSULTANT IMG XR PROCEDURES Final Re sult * eGFR (01/06/2025 6:25 AM CDT) eGFR >90 >=60 mL/min/1. 73 m2 Comment: Interpretive Data Reference Interval Normal >/= 90 mL/min/1.73m2 Mildly decreased* 60 - 89 mL/min/1.73m2 Mildly to moderately decreased 45 - 59 mL/min/1.73m2 Moderately to severely decreased 30 - 44 mL/min/1.73m2 Severely decreased 15 - 29 mL/min/1.73m2 Kidney Failure < 15 mL/min/1.73m2 *Relative to young adult level Estimated glomerular filtration rate is determined by the 2020 CKD-EPI equation recommended by the National Kidney Foundation (A Unifying Approach to GFR Estimation: Recommendations of the NKF-ASK Task Force on Reassessing the Inclusion of Race in Diagnosing Kidney Disease, [employer] 2020). The CKD-EPI equation should not be used for patients with unstable renal function and has not been validated in children and those over 70. Current interpretive data was last reviewed 2021. Blood 01/06/2025 6:25 AM CDT 01/06/2025 7:24 AM CDT us Dayne Moura FINANCIAL ANALYSIS CONSULTANT LAB BLOOD ORDERABLES Final Result NOEMI HAWK [id number] [facility] [place] [address] * (ABNORMAL) CBC without differential (01/06/2025 6:25 AM CDT) WBC 7.5 3.8 - 9.9 K/cumm Hgb 9.1(L) 11.9 - 15.5 g/dL [facility] Hct 27.6(L) 35.6 - 45.5 % [facility] Plt 267 150 - 400 K/cumm [facility] MPV 10.1 9.1 - 12.[address] [facility] RBC 2.97(L) 3.90 - 5.20 M/cumm [facility] MCV 92.9 81.3 - 96.4 fL [facility] MCH 30.6 27.1 - 33.[address] [facility] MCHC 33.0 32.3 - 35.7 g/dL [facility] RDW CV 13.6 11.1 - 14.9 % [facility] CH RDW SD 46.1 35.7 - 48.1 fL [facility] NRBC abs 0.00 0.00 - 0.01 K/cumm [facility] Blood 01/06/2025 6:25 AM CDT 01/06/2025 7:24 AM CDT Dayne Moura NP LAB BLOOD ORDERABLES Final Result NOEMI ARECHIGA [id number] Department [place] [address] * Basic metabolic panel (01/06/2025 6:25 AM CDT) Sodium 140 135 - 145 mmol/L Potassium, pl 3.7 3.3 - 4.9 mmol/L [facility] Chloride 105 97 - 110 mmol/L [facility] CO2 22 22 - 32 mmol/L [facility] Anion gap 13 2 - 15 mmol/L [facility] BUN 12 6 - 25 mg/dL [facility] Creatinine 0.79 0.60 - 1.10 mg/dL [facility] Glucose 100 70 - 199 mg/dL [facility] Comment: Interpretive Data Fasting glucose >/= 126 mg/dl is diagnostic for diabetes. Fasting is defined as no caloric intake for at least 8 hours. Fasting glucose between 100 mg/dl to 125 mg/dl is diagnostic of prediabetes. In a patient with classic symptoms of hyperglycemia or hyperglycemic crisis, a random glucose >/= 200 mg/dl is diagnostic for diabetes. In the absence of unequivocal hyperglycemia, results should be confirmed by repeat testing. The classification and Diagnosis of Diabetes Diabetes Care 202; 46: S19-S40. Current interpretive data was last revised 2022. Calcium 8.8 8.5 - 10.3 mg/dL [facility] Blood 01/06/2025 6:25 AM CDT 01/06/2025 7:24 AM CDT Dayne Moura NP LAB BLOOD ORDERABLES Final Result NOEMI ARECHIGA [address] Department [place] [address] * XR Chest PA Lateral 2 Views (01/05/2025 8:42 AM CDT) Anatomical Region Laterality Modality Body, Chest N/A Computed Radiogr aphy 01/05/2025 8:48 AM CDT Impressions 01/05/2025 8:48 AM CDT Right IJ central venous catheter terminates in the superior cavoatrial junction. No pneumothorax. Heart and mediastinal silhouette within normal limits. Mild pulmonary vascular congestion. No acute osseous abnormality. Poststernotomy changes noted. Electronically signed by: Dewey Wylie II, D.O. Narrative 01/05/2025 8:48 AM CDT EXAMINATION: XR CHEST PA LATERAL 2 VIEWS DATE: 01/05/2025 8:35 AM INDICATION: Assess bilateral congestion. COMPARISON: 01/04/2025. Procedure Note Dewey Wylie II, DO - 01/05/2025 EXAMINATION: XR CHEST PA LATERAL 2 VIEWS DATE: 01/05/2025 8:35 AM INDICATION: Assess bilateral congestion. COMPARISON: 01/04/2025. IMPRESSION: Right IJ central venous catheter terminates in the superior cavoatrial junction. No pneumothorax. Heart and mediastinal silhouette within normal limits. Mild pulmonary vascular congestion. No acute osseous abnormality. Poststernotomy changes noted. Electronically signed by: Dewey Wylie II, D.O. Dayne Moura FINANCIAL ANALYSIS CONSULTANT IMG XR PROCEDURES Final Res ult * eGFR (01/05/2025 5:13 AM CDT) eGFR >90 >=60 mL/min/1. 73 m2 Comment: Interpretive Data Reference Interval Normal >/= 90 mL/min/1.73m2 Mildly decreased* 60 - 89 mL/min/1.73m2 Mildly to moderately decreased 45 - 59 mL/min/1.73m2 Moderately to severely decreased 30 - 44 mL/min/1.73m2 Severely decreased 15 - 29 mL/min/1.73m2 Kidney Failure < 15 mL/min/1.73m2 *Relative to young adult level Estimated glomerular filtration rate is determined by the 2020 CKD-EPI equation recommended by the National Kidney Foundation (A Unifying Approach to GFR Estimation: Recommendations of the NKF-ASK Task Force on Reassessing the Inclusion of Race in Diagnosing Kidney Disease, JASN 202). The CKD-EPI equation should not be used for patients with unstable renal function and has not been validated in children and those over 70. Current interpretive data was last reviewed 2021. Blood 01/05/2025 5:13 AM CDT 01/05/2025 6:09 AM CDT Dayne Moura FINANCIAL ANALYSIS CONSULTANT LAB BLOOD ORDERABLES Final Result Performing Organization Address [facility] Co de Phone Number NOEMI ARECHIGA [address] [address] [facility] [place] [address] * (ABNORMAL) aPTT (01/05/2025 5:13 AM CDT) aPTT 27(L) 28 - 38 sec Comment: Interpretive Data Heparin therapeutic range: 66.0 - 100.0 seconds. Range based on correlation with therapeutic heparin activity range of 0.3 - 0.7 Units/mL. Current interpretive data was last revised on 2023. Blood 01/05/2025 5:13 AM CDT 01/05/2025 6:10 AM CDT Dayne Moura FINANCIAL ANALYSIS CONSULTANT LAB BLOOD ORDERABLES Final Result Performing Organization Address [facility] de Phone Number NOEMI ARECHIGA [address] [address] [facility] [place] [address] * Protime-INR (01/05/2025 5:13 AM CDT) PT 12.7 9.7 - 13.0 sec INR 1.17 0.90 - 1.20 NOEMI ARECHIGA Comment: Interpretive data Oral anticoagulant therapeutic ranges: Venous thromboembolism prophylaxis or treatment: 2.0-3.0 CARDIOLOGY Standard range: 2.0-3.0 High-intensity range: 2.5-3.5 Refer to indication-specific guidelines for appropriate target ranges for prosthetic heart valve replacement. Current interpretive data was last revised on 2019. Blood 01/05/2025 5:13 AM CDT 01/05/2025 6:10 AM CDT Dayne Moura FINANCIAL ANALYSIS CONSULTANT LAB BLOOD ORDERABLES Final Result Performing Organization Address [facility] de Phone Number NOEMI ARECHIGA [address] [address] [facility] [place] [address] * (ABNORMAL) CBC without differential (01/05/2025 5:13 AM CDT) Pathologist [facility] WBC 8.1 3.8 - 9.9 K/cumm Hgb 8.4(L) 11.9 - 15.5 g/dL [facility] Hct 26.3(L) 35.6 - 45.5 % [facility] Plt 210 150 - 400 K/cumm [facility] MPV 10.3 9.1 - 12.3 fL [facility] RBC 2.81(L) 3.90 - 5.20 M/cumm [facility] MCV 93.6 81.3 - 96.4 fL [facility] 29.9 27.1 - 33.3 pg [facility] MCHC 31.9(L) 32.3 - 35.7 g/dL [facility] RDW CV 13.6 11.1 - 14.9 % [facility] RDW SD 46.5 35.7 - 48.1 fL [facility] NRBC abs 0.00 0.00 - 0.01 K/cumm [facility] Blood 01/05/2025 5:13 AM CDT 01/05/2025 6:10 AM CDT Dayne Moura NP LAB BLOOD ORDERABLES Final Result [facility] [address] Department [place] [address] * Basic metabolic panel (01/05/2025 5:13 AM CDT) [facility] Sodium 139 135 - 145 mmol/L Potassium, pl 3.7 3.3 - 4.9 mmol/L [facility] Chloride 105 97 - 110 mmol/L [facility] CO2 22 22 - 32 mmol/L [facility] Anion gap 12 2 - 15 mmol/L [facility] BUN 12 6 - 25 mg/dL [facility] Creatinine 0.73 0.60 - 1.10 mg/dL [facility] Glucose 105 70 - 199 mg/dL [facility] Comment: Interpretive Data Fasting glucose >/= 126 mg/dl is diagnostic for diabetes. Fasting is defined as no caloric intake for at least 8 hours. Fasting glucose between 100 mg/dl to 125 mg/dl is diagnostic of prediabetes. In a patient with classic symptoms of hyperglycemia or hyperglycemic crisis, a random glucose >/= 200 mg/dl is diagnostic for diabetes. In the absence of unequivocal hyperglycemia, results should be confirmed by repeat testing. The classification and Diagnosis of Diabetes Diabetes Care 2021; 46: S19-S40. Current interpretive data was last revised 2022. Calcium 8.5 8.5 - 10.3 mg/dL [facility] Blood 01/05/2025 5:13 AM CDT 01/05/2025 6:09 AM CDT Dayne Moura FINANCIAL ANALYSIS CONSULTANT LAB BLOOD ORDERABLES Final Result Performing Organization Address [facility] de Phone Number NOEMI [phone] [address] [facility] [place] [address] * POCT glucose (01/04/2025 9:45 PM CDT) Glucose, POC 115 70 - 199 mg/dL POC Performer [id number] [facility] Blood 01/04/2025 9:45 PM CDT 01/04/2025 9:45 PM CDT Didier Quispe MD LAB POCT ORDERABLES - DEVICE F inal Result Performing Organization Address [facility] de Phone Number NOEMI [address] [address] Department [facility] [place] [address] * POCT glucose (01/04/2025 7:43 AM CDT) Glucose, POC 103 70 - 199 mg/dL POC Performer [id number] [facility] Blood 01/04/2025 7:43 AM CDT 01/04/2025 7:43 AM CDT Didier Quispe MD LAB POCT ORDERABLES - DEVICE F inal Result Performing Organization Address [facility]/State/ZIP Co de Phone Number NOEMI ARECHIGA [address] [address] Department [place] [address] * XR Chest 1 View - Portable - in AM (01/04/2025 6:02 AM CDT) Anatomical Region Laterality Modality Body, Chest N/A Computed Radiogr aphy 01/04/2025 6:19 AM CDT Impressions 01/04/2025 6:19 AM CDT Hypoventilation. Postoperative chest. Electronically signed by: Baudilio Hogan M.D. Narrative 01/04/2025 6:19 AM CDT EXAMINATION: XR CHEST 1 VIEW DATE: 01/04/2025 5:40 AM HISTORY: s/p cardiac surg FINDINGS: Sternal plates and wires indicate prior cardiac surgery. Right internal jugular central venous catheter ends at the cavoatrial junction. There is poor inspiration. There is no pneumothorax or pleural effusion. Procedure Note Baudilio Hogan MD - 01/04/2025 EXAMINATION: XR CHEST 1 VIEW DATE: 01/04/2025 5:40 AM HISTORY: s/p cardiac surg FINDINGS: Sternal plates and wires indicate prior cardiac surgery. Right internal jugular central venous catheter ends at the cavoatrial junction. There is poor inspiration. There is no pneumothorax or pleural effusion. IMPRESSION: Hypoventilation. Postoperative chest. Electronically signed by: Baudilio Hogan M.D. Nhi Pruett MD IMG XR PROCEDURES Final Resul t * eGFR (01/04/2025 5:10 AM CDT) eGFR >90 >=60 mL/min/1. 73 m2 Comment: Interpretive Data Reference Interval Normal >/= 90 mL/min/1.73m2 Mildly decreased* 60 - 89 mL/min/1.73m2 Mildly to moderately decreased 45 - 59 mL/min/1.73m2 Moderately to severely decreased 30 - 44 mL/min/1.73m2 Severely decreased 15 - 29 mL/min/1.73m2 Kidney Failure < 15 mL/min/1.73m2 *Relative to young adult level Estimated glomerular filtration rate is determined by the 2020 CKD-EPI equation recommended by the National Kidney Foundation (A Unifying Approach to GFR Estimation: Recommendations of the NKF-ASK Task Force on Reassessing the Inclusion of Race in Diagnosing Kidney Disease, [employer] 2020). The CKD-EPI equation should not be used for patients with unstable renal function and has not been validated in children and those over 70. Current interpretive data was last reviewed 2021. Blood 01/04/2025 5:10 AM CDT 01/04/2025 6:21 AM CDT Dayne Moura NP LAB BLOOD ORDERABLES Final Result [facility] [address] [address] Department [place] [address] * (ABNORMAL) CBC without differential (01/04/2025 5:10 AM CDT) WBC 10.8(H) 3.8 - 9.9 K/cumm Hgb 8.3(L) 11.9 - 15.5 g/dL [facility] Hct 25.9(L) 35.6 - 45.5 % [facility] Plt 173 150 - 400 K/cumm [facility] MPV 10.5 9.1 - 12.3 fL [facility] RBC 2.78(L) 3.90 - 5.20 M/cumm [facility] MCV 93.2 81.3 - 96.4 fL [facility] MCH 29.9 27.1 - 33.3 pg [facility] MCHC 32.0(L) 32.3 - 35.7 g/dL [facility] RDW CV 13.7 11.1 - 14.9 % [facility] RDW SD 47.1 35.7 - 48.1 fL [facility] NRBC abs 0.00 0.00 - 0.01 K/cumm [facility] Blood 01/04/2025 5:10 AM CDT 01/04/2025 6:20 AM CDT us Dayne Olya Martell FINANCIAL ANALYSIS CONSULTANT LAB BLOOD ORDERABLES Final Result Performing Organization Address City/[facility]/ZIP Co de Phone Number NOEMI [address] [address] [facility] [place] [address] * Magnesium (01/04/2025 5:10 AM CDT) Pathologist [facility] Magnesium 2.2 1.4 - 2.5 mg/dL Blood 01/04/2025 5:10 AM CDT 01/04/2025 6:21 AM CDT Dayne Moura FINANCIAL ANALYSIS CONSULTANT LAB BLOOD ORDERABLES Final Result Performing Organization Address [facility] Co de Phone Number [facility] [address] [address] [facility] [place] [address] * Basic metabolic panel (01/04/2025 5:10 AM CDT) Pathologist [facility] Sodium 139 135 - 145 mmol/L Potassium, pl 4.3 3.3 - 4.9 mmol/L [facility] Chloride 107 97 - 110 mmol/L [facility] CO2 22 22 - 32 mmol/L [facility] Anion gap 10 2 - 15 mmol/L [facility] BUN 11 6 - 25 mg/dL [facility] Creatinine 0.73 0.60 - 1.10 mg/dL [facility] Glucose 107 70 - 199 mg/dL [facility] Comment: Interpretive Data Fasting glucose >/= 126 mg/dl is diagnostic for diabetes. Fasting is defined as no caloric intake for at least 8 hours. Fasting glucose between 100 mg/dl to 125 mg/dl is diagnostic of prediabetes. In a patient with classic symptoms of hyperglycemia or hyperglycemic crisis, a random glucose >/= 200 mg/dl is diagnostic for diabetes. In the absence of unequivocal hyperglycemia, results should be confirmed by repeat testing. The classification and Diagnosis of Diabetes Diabetes Care 202; 46: S19-S40. Current interpretive data was last revised 2022. Calcium 8.5 8.5 - 10.3 mg/dL [facility] Blood 01/04/2025 5:10 AM CDT 01/04/2025 6:21 AM CDT Dayne Moura FINANCIAL ANALYSIS CONSULTANT LAB BLOOD ORDERABLES Final Result Performing Organization Address [facility]/ZIP Co de Phone Number NOEMI ARECHIGA [address] [address] [facility] [place] [address] * POCT glucose (01/03/2025 8:07 PM CDT) [facility] Glucose, POC 130 70 - 199 mg/dL POC Performer [id number] [facility] Blood 01/03/2025 8:07 PM CDT 01/03/2025 8:07 PM CDT Didier Quispe MD LAB POCT ORDERABLES - DEVICE F inal Result Performing Organization Address [facility] Co de Phone Number NOEMI ARECHIGA [address] [address] Department [facility] [place], [place] [id number] * Calcium, ionized, whole blood (01/03/2025 1:35 PM CDT) [facility] Ca, ionized, bld 4.63 4.50 - 5.10 mg/dL Blood 01/03/2025 1:35 PM CDT 01/03/2025 1:39 PM CDT Carolin Feng FINANCIAL ANALYSIS CONSULTANT LAB BLOOD ORDERABLES F inal Result Performing Organization Address [facility] Co de Phone Number NOEMI [phone] [address] Department of [facility] [place] [address] * eGFR (01/03/2025 1:35 PM CDT) [facility] eGFR >90 >=60 mL/min/1. 73 m2 Comment: Interpretive Data Reference Interval Normal >/= 90 mL/min/1.73m2 Mildly decreased* 60 - 89 mL/min/1.73m2 Mildly to moderately decreased 45 - 59 mL/min/1.73m2 Moderately to severely decreased 30 - 44 mL/min/1.73m2 Severely decreased 15 - 29 mL/min/1.73m2 Kidney Failure < 15 mL/min/1.73m2 *Relative to young adult level Estimated glomerular filtration rate is determined by the 2020 CKD-EPI equation recommended by the National Kidney Foundation (A Unifying Approach to GFR Estimation: Recommendations of the NKF-ASK Task Force on Reassessing the Inclusion of Race in Diagnosing Kidney Disease, JASN 202). The CKD-EPI equation should not be used for patients with unstable renal function and has not been validated in children and those over 70. Current interpretive data was last reviewed 2021. Blood 01/03/2025 1:35 PM CDT 01/03/2025 1:49 PM CDT Carolin Feng FINANCIAL ANALYSIS CONSULTANT LAB BLOOD ORDERABLES F inal Result Performing Organization Address City/[facility]/ZIP Co de Phone Number [facility] [address] [address] [employer] [place], [place] [id number] * Magnesium (01/03/2025 1:35 PM CDT) Pathologist [facility] Magnesium 2.2 1.4 - 2.5 mg/dL Blood 01/03/2025 1:35 PM CDT 01/03/2025 1:39 PM CDT Carolin Feng FINANCIAL ANALYSIS CONSULTANT LAB BLOOD ORDERABLES F inal Result Performing Organization Address [facility] Co de Phone Number [facility] [phone] [address] Department [facility] [place], [place] [id number] * (ABNORMAL) Renal function panel (01/03/2025 1:35 PM CDT) Sodium 137 135 - 145 mmol/L Potassium, pl 4.4 3.3 - 4.9 mmol/L [facility] Chloride 107 97 - 110 mmol/L [facility] CO2 20(L) 22 - 32 mmol/L [facility] Anion gap 10 2 - 15 mmol/L [facility] BUN 10 6 - 25 mg/dL [facility] Creatinine 0.71 0.60 - 1.10 mg/dL [facility] Glucose 114 70 - 199 mg/dL [facility] Comment: Interpretive Data Fasting glucose >/= 126 mg/dl is diagnostic for diabetes. Fasting is defined as no caloric intake for at least 8 hours. Fasting glucose between 100 mg/dl to 125 mg/dl is diagnostic of prediabetes. In a patient with classic symptoms of hyperglycemia or hyperglycemic crisis, a random glucose >/= 200 mg/dl is diagnostic for diabetes. In the absence of unequivocal hyperglycemia, results should be confirmed by repeat testing. The classification and Diagnosis of Diabetes Diabetes Care 2021; 46: S19-S40. Current interpretive data was last revised 2022. Calcium 8.6 8.5 - 10.3 mg/dL [facility] Phosphorus, pl 2.7 2.3 - 4.5 mg/dL [facility] Albumin 3.5 3.5 - 5.0 g/dL [facility] Blood 01/03/2025 1:35 PM CDT 01/03/2025 1:39 PM CDT Carolin Feng NP LAB BLOOD ORDERABLES F inal Result Performing Organization Address [facility] Co de Phone Number NOEMI ARECHIGA [address] [address] [place] [address] * POCT glucose (01/03/2025 12:18 PM CDT) Glucose, POC 113 70 - 199 mg/dL POC Performer [id number] [facility] Blood 01/03/2025 12:1 8 PM CDT 01/03/2025 12:18 PM CDT Didier Quispe MD LAB POCT ORDERABLES - DEVICE F inal Result Performing Organization Address City/[facility]/ZIP Co de Phone Number NOEMI [address] [address] [place] [address] * POCT glucose (01/03/2025 7:37 AM CDT) Glucose, POC 126 70 - 199 mg/dL POC Performer [id number] [facility] Blood 01/03/2025 7:37 AM CDT 01/03/2025 7:37 AM CDT Didier Quispe MD LAB POCT ORDERABLES - DEVICE F inal Result NOEMI ARECHIGA [address] [facility] Department [place] [address] * Critical Care (01/03/2025 6:57 AM CDT) Narrative Bairon Springer MD - 01/03/2025 6:57 AM CDT Bairon Springer MD 01/03/2025 5:19 PM Critical Care Performed by: Carolin Feng NP Authorized by: Carolin Feng NP CRITICAL CARE: Team: XAVI Shift: AM Level of Billing: Subsequent Hospital Visit Level 3 My time spent with this patient was 45 minutes: Critical Provider Statement: I have seen and examined the patient on this day of service. I have reviewed and confirmed the history, physical exam, laboratory, and radiographic data as documented in the ICU note. I have reviewed and discussed my treatment plan with the patient's team and other medical/nutrition consultant staff. This time was in addition to and separate from care provided by other practitioners on this day of service. I spent time talking to this patient's surrogate decision maker to determine treatment plans due to patient's inability to participate in decision making, I spent time talking to this patient's relatives to obtain additional medical history due to patient's inabililty to provide history, I spent time documenting in the medical record, I spent time discussing the management of this critically ill patient with consultants and the medical staff and I spent time reviewing and interpreting data from bedside monitors, laboratory results, and imaging Carolin Feng NP [facility] Final Result * XR Chest 1 View - Portable - in AM (01/03/2025 6:07 AM CDT) Anatomical Region Laterality Modality Body, Chest N/A Computed Radiogr aphy 01/03/2025 7:19 AM CDT Impressions 01/03/2025 7:19 AM CDT Mild left lower lobe atelectasis. Postoperative chest. Electronically signed by: Baudilio Hogan M.D. Narrative 01/03/2025 7:19 AM CDT EXAMINATION: XR CHEST 1 VIEW DATE: 01/03/2025 5:35 AM HISTORY: s/p cardiac surg FINDINGS: Sternal plates and wires, bilateral thoracostomy tubes and mediastinal drain are present. Right internal jugular pulmonary artery catheter ends in the right pulmonary artery. There is poor inspiration. The heart is enlarged. There is mild pulmonary vascular congestion. There is poor inspiration. Left lower lobe atelectasis is present. There is no pneumothorax or pleural effusion. Procedure Note Baudilio Hogan MD - 01/03/2025 EXAMINATION: XR CHEST 1 VIEW DATE: 01/03/2025 5:35 AM HISTORY: s/p cardiac surg FINDINGS: Sternal plates and wires, bilateral thoracostomy tubes and mediastinal drain are present. Right internal jugular pulmonary artery catheter ends in the right pulmonary artery. There is poor inspiration. The heart is enlarged. There is mild pulmonary vascular congestion. There is poor inspiration. Left lower lobe atelectasis is present. There is no pneumothorax or pleural effusion. IMPRESSION: Mild left lower lobe atelectasis. Postoperative chest. Electronically signed by: Baudilio Hogan M.D. Nhi Pruett MD IMG XR PROCEDURES Final Resul t * Oxyhemoglobin, central venous (01/03/2025 3:49 AM CDT) Oxyhemoglobin, CV 58.7 % Comment: Interpretive Data No reference range established. Current interpretive data was last revised 2019. Blood 01/03/2025 3:49 AM CDT 01/03/2025 3:55 AM CDT Didier Quispe MD LAB BLOOD ORDERABLES Final Res ult NOEMI ARECHIGA [address] [address] Department [place] [address] * Calcium, ionized, whole blood (01/03/2025 3:49 AM CDT) Ca, ionized, bld 5.07 4.50 - 5.10 mg/dL Blood 01/03/2025 3:49 AM CDT 01/03/2025 3:55 AM CDT Dayne Moura FINANCIAL ANALYSIS CONSULTANT LAB BLOOD ORDERABLES Final Result NOEMI ARECHIGA [address] [address] [facility] [place] [address] * eGFR (01/03/2025 3:49 AM CDT) eGFR >90 >=60 mL/min/1. 73 m2 Comment: Interpretive Data Reference Interval Normal >/= 90 mL/min/1.73m2 Mildly decreased* 60 - 89 mL/min/1.73m2 Mildly to moderately decreased 45 - 59 mL/min/1.73m2 Moderately to severely decreased 30 - 44 mL/min/1.73m2 Severely decreased 15 - 29 mL/min/1.73m2 Kidney Failure < 15 mL/min/1.73m2 *Relative to young adult level Estimated glomerular filtration rate is determined by the 2020 CKD-EPI equation recommended by the National Kidney Foundation (A Unifying Approach to GFR Estimation: Recommendations of the NKF-ASK Task Force on Reassessing the Inclusion of Race in Diagnosing Kidney Disease, JASN 2020). The CKD-EPI equation should not be used for patients with unstable renal function and has not been validated in children and those over 70. Current interpretive data was last reviewed 2021. Blood 01/03/2025 3:49 AM CDT 01/03/2025 3:56 AM CDT Dayne Moura NP LAB BLOOD ORDERABLES Final Result NOEMI ARECHIGA [address] [address] Department [facility] [place] [address] * POCT glucose (01/03/2025 3:49 AM CDT) Glucose, POC 121 70 - 199 mg/dL POC Performer [id number] [facility] Blood 01/03/2025 3:49 AM CDT 01/03/2025 3:49 AM CDT Didier Quispe MD LAB POCT ORDERABLES - DEVICE F inal Result Performing Organization Address City/[facility]/ZIP Co de Phone Number NOEMI ARECHIGA [address] [address] [place] [address] * (ABNORMAL) CBC without differential (01/03/2025 3:49 AM CDT) WBC 11.9(H) 3.8 - 9.9 K/cumm Hgb 8.9(L) 11.9 - 15.5 g/dL [facility] Hct 28.0(L) 35.6 - 45.5 % [facility] Plt 154 150 - 400 K/cumm [facility] MPV 10.2 9.1 - 12.3 fL [facility] RBC 3.01(L) 3.90 - 5.20 M/cumm [facility] MCV 93.0 81.3 - 96.4 fL [facility] MCH 29.6 27.1 - 33.3 pg [facility] MCHC 31.8(L) 32.3 - 35.7 g/dL [facility] CH RDW CV 13.5 11.1 - 14.9 % [facility] CH RDW SD 46.5 35.7 - 48.1 fL [facility] NRBC abs 0.00 0.00 - 0.01 K/cumm [facility] Blood 01/03/2025 3:49 AM CDT 01/03/2025 3:56 AM CDT us Dayne Moura NP LAB BLOOD ORDERABLES Final Result Performing Organization Address City/[facility]/ZIP Co de Phone Number NOEMI ARECHIGA [address] [place] [address] * Magnesium (01/03/2025 3:49 AM CDT) Magnesium 1.9 1.4 - 2.5 mg/dL Blood 01/03/2025 3:49 AM CDT 01/03/2025 3:56 AM CDT Dayne Moura NP LAB BLOOD ORDERABLES Final Result NOEMI [address] Department [place] [address] * (ABNORMAL) Basic metabolic panel (01/03/2025 3:49 AM CDT) Sodium 139 135 - 145 mmol/L Potassium, pl 4.4 3.3 - 4.9 mmol/L [facility] Chloride 106 97 - 110 mmol/L [facility] CO2 22 22 - 32 mmol/L [facility] Anion gap 11 2 - 15 mmol/L [facility] BUN 9 6 - 25 mg/dL [facility] Creatinine 0.76 0.60 - 1.10 mg/dL [facility] Glucose 116 70 - 199 mg/dL [facility] Comment: Interpretive Data Fasting glucose >/= 126 mg/dl is diagnostic for diabetes. Fasting is defined as no caloric intake for at least 8 hours. Fasting glucose between 100 mg/dl to 125 mg/dl is diagnostic of prediabetes. In a patient with classic symptoms of hyperglycemia or hyperglycemic crisis, a random glucose >/= 200 mg/dl is diagnostic for diabetes. In the absence of unequivocal hyperglycemia, results should be confirmed by repeat testing. The classification and Diagnosis of Diabetes Diabetes Care 2021; 46: S19-S40. Current interpretive data was last revised 2022. Calcium 8.4(L) 8.5 - 10.3 mg/dL [facility] Blood 01/03/2025 3:49 AM CDT 01/03/2025 3:56 AM CDT Dayne Moura NP LAB BLOOD ORDERABLES Final Result NOEMI ARECHIGA [address] Department [place] [address] * POCT glucose (01/03/2025 12:03 AM CDT) Glucose, POC 139 70 - 199 mg/dL POC Performer [id number] NOEMI ARECHIGA Blood 01/03/2025 12:0 3 AM CDT 01/03/2025 12:03 AM CDT Result [facility] Didier Quispe MD LAB POCT ORDERABLES - DEVICE F inal Result NOEMI [address] Department [place] [address] * Critical Care (01/02/2025 9:29 PM CDT) Narrative Sherman Blake MD - 01/02/2025 9:29 PM CDT Sherman Blake MD 01/03/2025 6:26 AM Critical Care Performed by: Shanon Naylor PA Authorized by: Shanon Naylor PA CRITICAL CARE: Team: XAVI Shift: PM Level of Billing: Critical Care My time spent with this patient was 75 minutes: Critical Provider Statement: I have seen and examined the patient on this day of service. I have reviewed and confirmed the history, physical exam, laboratory and radiologic data as documented in the signed ICU note. I have reviewed and discussed my treatment plan with the ICU team and other medical/nutrition consultant staff, making frequent assessments and decisions regarding this patient's complex medical care. Critical Care time was exclusive of time spent performing separately billed procedures, treating other patients, and teaching. This time was in addition to and separate from critical care provided by other practitioners in my group on this day of service. Critical Care was necessary to treat or prevent imminent or life-threatening deterioration of the following conditions: I spent time reviewing and interpreting data from bedside monitors, laboratory results, and imaging, I spent time discussing the management of this critically ill patient with consultants and the medical staff and I spent time documenting in the medical record Result [facility] Shanon JOSÉ IN CLINIC/BEDSIDE ORDERA BLES Final Result * (ABNORMAL) Calcium, ionized, whole blood (01/02/2025 8:56 PM CDT) Ca, ionized, bld 5.25(H) 4.50 - 5.10 mg/dL Blood 01/02/2025 8:56 PM CDT 01/02/2025 8:59 PM CDT Didier Quispe MD LAB BLOOD ORDERABLES Final Res ult Performing Organization Address [facility] de Phone Number NOEMI ARECHIGA [address] Department [place] [address] * (ABNORMAL) Blood gas, arterial (01/02/2025 8:56 PM CDT) pH, Art 7.43 7.35 - 7.45 PCO2, Arterial 30(L) 35 - 45 mmHg [facility] PO2, Arterial 77(L) 83 - 108 mmHg [facility] HCO3 Art (Calculated) 22 20 - 30 mmol/L [facility] BE, art -4 mmol/L [facility] Comment: Interpretive Data No Reference Range Established Current Interpretive Data was last revised on 2017 O2 Sat Art (Measured) 96(H) 90 - 95 % [facility] Blood 01/02/2025 8:56 PM CDT 01/02/2025 8:59 PM CDT Didier Quispe MD LAB BLOOD ORDERABLES Final Res ult Performing Organization Address [facility] de Phone Number NOEMI ARECHIGA [address] Department [place] [address] * XR Chest 1 Vw Portable (01/02/2025 8:53 PM CDT) Anatomical Region Laterality Modality Body, Chest N/A Computed Radiogr aphy 01/02/2025 8:57 PM CDT Impressions 01/02/2025 8:57 PM CDT No change since the last study. Electronically signed by: Nilson Solomon M.D. Narrative 01/02/2025 8:57 PM CDT EXAMINATION: XR CHEST 1 VIEW HISTORY: The patient is a 44-year-old female who presents with shortness of breath. Comparison made with the previous study done earlier in the day. TECHNIQUE: AP portable view of the chest. FINDINGS: Cardiomegaly with aortic atherosclerosis. No failure. Allowing for the poor inspiration the lungs are clear. Bilateral thoracostomy tubes and [place]-Lindsay catheter are in good position. Procedure Note Nilson Solomon MD - 01/02/2025 EXAMINATION: XR CHEST 1 VIEW HISTORY: The patient is a 44-year-old female who presents with shortness of breath. Comparison made with the previous study done earlier in the day. TECHNIQUE: AP portable view of the chest. FINDINGS: Cardiomegaly with aortic atherosclerosis. No failure. Allowing for the poor inspiration the lungs are clear. Bilateral thoracostomy tubes and [place]-Lindsay catheter are in good position. IMPRESSION: No change since the last study. Electronically signed by: Nilson Solomon M.D. Didier Quispe MD IMG XR PROCEDURES Final Result * POCT glucose (01/02/2025 7:42 PM CDT) Glucose, POC 124 70 - 199 mg/dL POC [facility] [id number] [facility] Blood 01/02/2025 7:42 PM CDT 01/02/2025 7:42 PM CDT Didier Quispe MD LAB POCT ORDERABLES - DEVICE F inal Result Performing Organization Address [facility] Co de Phone Number [facility] [address] Department [place] [address] * POCT glucose (01/02/2025 5:33 PM CDT) Glucose, POC 115 70 - 199 mg/dL POC Performer [id number] [facility] Blood 01/02/2025 5:33 PM CDT 01/02/2025 5:33 PM CDT Didier Quispe MD LAB POCT ORDERABLES - DEVICE F inal Result Performing Organization Address City/[facility]/ZIP Co de Phone Number [facility] [address] Department [place] [address] * ECG 12 lead (01/02/2025 4:58 PM CDT) 01/02/2025 4:58 PM CDT Narrative [facility] - 01/02/2025 9:08 PM CDT Vent Rate: 116 bpm RR Interval: 513 msec MN Interval: 136 msec QRS Duration: 85 msec QT Interval: 338 msec QTC Interval: 407 msec P-R-T [place]: 37 - 84 - 50 degrees IMPRESSION: SINUS TACHYCARDIA POSSIBLE ANTERIOR MYOCARDIAL INFARCTION , OF INDETERMINATE AGE [30 ms Q WAVE IN V3/V4, OR R < 0.2 mV IN V4] POSSIBLE INFERIOR MYOCARDIAL INFARCTION , OF INDETERMINATE AGE [30 ms Q WAVE IN II/aVF] ABNORMAL ECG Electronically Signed By: Dr. Rivera Epps Nhi Pruett MD ECG ORDERABLES Final Result Performing Organization Address [facility] Phone Number [facility] [employer] [facility] * (ABNORMAL) Calcium, ionized, whole blood (01/02/2025 1:31 PM CDT) Pathologist [facility] Ca, ionized, bld 4.41(L) 4.50 - 5.10 mg/dL Blood 01/02/2025 1:31 PM CDT 01/02/2025 1:43 PM CDT Carolin Feng NP LAB BLOOD ORDERABLES F inal Result Performing Organization Address [facility] [place] [address] [address] Department [place] [address] * eGFR (01/02/2025 1:31 PM CDT) Pathologist [facility] eGFR >90 >=60 mL/min/1. 73 m2 Comment: Interpretive Data Reference Interval Normal >/= 90 mL/min/1.73m2 Mildly decreased* 60 - 89 mL/min/1.73m2 Mildly to moderately decreased 45 - 59 mL/min/1.73m2 Moderately to severely decreased 30 - 44 mL/min/1.73m2 Severely decreased 15 - 29 mL/min/1.73m2 Kidney Failure < 15 mL/min/1.73m2 *Relative to young adult level Estimated glomerular filtration rate is determined by the 2020 CKD-EPI equation recommended by the National Kidney Foundation (A Unifying Approach to GFR Estimation: Recommendations of the NKF-ASK Task Force on Reassessing the Inclusion of Race in Diagnosing Kidney Disease, JASN 202). The CKD-EPI equation should not be used for patients with unstable renal function and has not been validated in children and those over 70. Current interpretive data was last reviewed 2021. Blood 01/02/2025 1:31 PM CDT 01/02/2025 1:51 PM CDT us Carolin Feng NP LAB BLOOD ORDERABLES F inal Result [facility] [address] Department [place] [address] * (ABNORMAL) CBC without differential (01/02/2025 1:31 PM CDT) WBC 12.0(H) 3.8 - 9.9 K/cumm Hgb 9.8(L) 11.9 - 15.5 g/dL [facility] Hct 30.2(L) 35.6 - 45.5 % [facility] Plt 174 150 - 400 K/cumm [facility] MPV 9.9 9.1 - 12.3 fL [facility] RBC 3.35(L) 3.90 - 5.20 M/cumm [facility] MCV 90.1 81.3 - 96.4 fL [facility] MCH 29.3 27.1 - 33.3 pg [facility] MCHC 32.5 32.3 - 35.7 g/dL [facility] RDW CV 13.4 11.1 - 14.9 % [facility] RDW SD 43.9 35.7 - 48.1 fL [facility] NRBC abs 0.00 0.00 - 0.01 K/cumm [facility] Blood 01/02/2025 1:31 PM CDT 01/02/2025 1:44 PM CDT Didier Quispe MD LAB BLOOD ORDERABLES Final Res ult Performing Organization Address City/[facility]/ZIP Co de Phone Number [facility] [address] Department of [facility] [place] [address] * Magnesium (01/02/2025 1:31 PM CDT) Pathologist [facility] Magnesium 2.3 1.4 - 2.5 mg/dL Blood 01/02/2025 1:31 PM CDT 01/02/2025 1:43 PM CDT Carolin Feng FINANCIAL ANALYSIS CONSULTANT LAB BLOOD ORDERABLES F inal Result Performing Organization Address [facility] Co de Phone Number [facility] [address] [address] Department of [facility] [place] [address] * (ABNORMAL) Renal function panel (01/02/2025 1:31 PM CDT) Pathologist [facility] Sodium 140 135 - 145 mmol/L Potassium, pl 4.1 3.3 - 4.9 mmol/L [facility] Chloride 107 97 - 110 mmol/L [facility] CO2 20(L) 22 - 32 mmol/L [facility] Anion gap 13 2 - 15 mmol/L [facility] BUN 8 6 - 25 mg/dL [facility] Creatinine 0.72 0.60 - 1.10 mg/dL [facility] Glucose 106 70 - 199 mg/dL [facility] Comment: Interpretive Data Fasting glucose >/= 126 mg/dl is diagnostic for diabetes. Fasting is defined as no caloric intake for at least 8 hours. Fasting glucose between 100 mg/dl to 125 mg/dl is diagnostic of prediabetes. In a patient with classic symptoms of hyperglycemia or hyperglycemic crisis, a random glucose >/= 200 mg/dl is diagnostic for diabetes. In the absence of unequivocal hyperglycemia, results should be confirmed by repeat testing. The classification and Diagnosis of Diabetes Diabetes Care 2021; 46: S19-S40. Current interpretive data was last revised 2022. Calcium 8.1(L) 8.5 - 10.3 mg/dL [facility] Phosphorus, pl 3.0 2.3 - 4.5 mg/dL [facility] Albumin 3.8 3.5 - 5.0 g/dL [facility] Blood 01/02/2025 1:31 PM CDT 01/02/2025 1:43 PM CDT Carolin Feng FINANCIAL ANALYSIS CONSULTANT LAB BLOOD ORDERABLES F inal Result Performing Organization Address City/[facility] Co de Phone Number NOEMI ARECHIGA [address] [address] [facility] [place] [address] * POCT glucose (01/02/2025 12:12 PM CDT) Glucose, POC 105 70 - 199 mg/dL POC Performer [id number] [facility] Blood 01/02/2025 12:1 2 PM CDT 01/02/2025 12:12 PM CDT Didier Quispe MD LAB POCT ORDERABLES - DEVICE F inal Result Performing Organization Address [facility] Co de Phone Number TARALAURA ARECHIGA [address] [address] [facility] [place] [address] * POCT glucose (01/02/2025 10:25 AM CDT) Glucose, POC 89 70 - 199 mg/dL POC Performer [id number] [facility] Blood 01/02/2025 10:2 5 AM CDT 01/02/2025 10:25 AM CDT Didier Quispe MD LAB POCT ORDERABLES - DEVICE F inal Result Performing Organization Address [facility] Co de Phone Number NOEMI ARECHIGA [address] [address] [facility] [place] [address] * POCT glucose (01/02/2025 8:27 AM CDT) Glucose, POC 114 70 - 199 mg/dL POC Performer [id number] NOEMI Blood 01/02/2025 8:27 AM CDT 01/02/2025 8:27 AM CDT Didier Quispe MD LAB POCT ORDERABLES - DEVICE F inal Result Performing Organization Address [facility] Co de Phone Number NOEMI [address] Department [place] [address] * ECG 12 lead (01/02/2025 7:22 AM CDT) 01/02/2025 7:22 AM CDT Narrative [facility] - 01/02/2025 8:00 AM CDT Vent Rate: 78 bpm RR Interval: 762 msec MN Interval: 154 msec QRS Duration: 92 msec QT Interval: 381 msec QTC Interval: 415 msec P-R-T [place]: 41 - 74 - 84 degrees IMPRESSION: SINUS RHYTHM PROBABLE INFERIOR MYOCARDIAL INFARCTION , OF INDETERMINATE AGE [35 ms Q WAVE IN II/aVF] ABNORMAL ECG Electronically Signed By: Dr. Caprice Kendrick [facility] Didier Quispe MD ECG ORDERABLES Final Result Performing Organization Address [facility] Phone Number [facility] [employer] [facility] * Critical Care (01/02/2025 6:53 AM CDT) Narrative Remi Carlton MD - 01/02/2025 6:53 AM CDT Remi Carlton MD 01/10/2025 7:01 AM Critical Care Performed by: Carolin Feng NP Authorized by: Carolin Feng NP CRITICAL CARE: Team: XAVI Shift: AM Level of Billing: Critical Care My time spent with this patient was 60 minutes: Critical Provider Statement: I have seen and examined the patient on this day of service. I have reviewed and confirmed the history, physical exam, laboratory and radiologic data as documented in the signed ICU note. I have reviewed and discussed my treatment plan with the ICU team and other medical/nutrition consultant staff, making frequent assessments and decisions regarding this patient's complex medical care. Critical Care time was exclusive of time spent performing separately billed procedures, treating other patients, and teaching. This time was in addition to and separate from critical care provided by other practitioners in my group on this day of service. Critical Care was necessary to treat or prevent imminent or life-threatening deterioration of the following conditions: I spent time talking to this patient's surrogate decision maker to determine treatment plans due to patient's inability to participate in decision making, I spent time talking to this patient's relatives to obtain additional medical history due to patient's inabililty to provide history, I spent time documenting in the medical record, I spent time discussing the management of this critically ill patient with consultants and the medical staff and I spent time reviewing and interpreting data from bedside monitors, laboratory results, and imaging us Carolin Feng NP IN CLINIC/BEDSIDE [facility]ELLER Final Result * POCT glucose (01/02/2025 6:08 AM CDT) Glucose, POC 134 70 - 199 mg/dL POC Performer [id number] NOEMI ARECHIGA Blood 01/02/2025 6:08 AM CDT 01/02/2025 6:08 AM CDT Didier Quispe MD LAB POCT ORDERABLES - DEVICE F inal Result NOEMI [address] [address] Department [place] [address] * XR Chest 1 View - Portable - in AM (01/02/2025 6:07 AM CDT) Anatomical Region Laterality Modality Body, Chest N/A Computed Radiogr aphy 01/02/2025 6:13 AM CDT Impressions 01/02/2025 6:13 AM CDT Extubation. Decreasing failure. Electronically signed by: Gama Harrison M.D. Narrative 01/02/2025 6:13 AM CDT EXAMINATION: XR CHEST 1 VIEW DATE: 01/02/2025 5:25 AM HISTORY: Cardiac surgery FINDINGS:Compared with study of the prior day, patient extubated with removal of ET and NG tubes. Thoracostomy tubes and mediastinal drain and [place]-Lindsay catheter stable. Cardiomegaly with postsurgical changes stable. Decreasing but continued mild pulmonary vascular congestion. No pneumothorax Procedure Note Gama Harrison MD - 01/02/2025 EXAMINATION: XR CHEST 1 VIEW DATE: 01/02/2025 5:25 AM HISTORY: Cardiac surgery FINDINGS:Compared with study of the prior day, patient extubated with removal of ET and NG tubes. Thoracostomy tubes and mediastinal drain and [place]-Lindsay catheter stable. Cardiomegaly with postsurgical changes stable. Decreasing but continued mild pulmonary vascular congestion. No pneumothorax IMPRESSION: Extubation. Decreasing failure. Electronically signed by: Gama Harrison M.D. Nhi Pruett MD IMG XR PROCEDURES Final Resul t * POCT glucose (01/02/2025 5:06 AM CDT) Glucose, POC 133 70 - 199 mg/dL POC Performer [id number] [facility] Blood 01/02/2025 5:06 AM CDT 01/02/2025 5:06 AM CDT Didier Quispe MD LAB POCT ORDERABLES - DEVICE F inal Result Performing Organization Address [facility] Co de Phone Number NOEMI [address] [address] [employer] [place] [address] * POCT glucose (01/02/2025 4:05 AM CDT) Glucose, POC 131 70 - 199 mg/dL POC Performer [id number] [facility] Blood 01/02/2025 4:05 AM CDT 01/02/2025 4:05 AM CDT Didier Quispe MD LAB POCT ORDERABLES - DEVICE F inal Result Performing Organization Address [facility] Co de Phone Number NOEMI [address] [address] Department of [facility] [place] [address] * Oxyhemoglobin, pulmonary artery (01/02/2025 3:13 AM CDT) Oxyhemoglobin, PA 66.2 % Comment: Interpretive Data No reference range established. Current interpretive data was last revised 2019. Blood 01/02/2025 3:13 AM CDT 01/02/2025 3:15 AM CDT us Yan Perry MD LAB BLOOD ORDERABL ES Final Result NOEMI ARECHIGA [address] [address] Department of [facility] [place], [place] [id number] * Lactate (01/02/2025 3:13 AM CDT) Lactate 1.9 0.7 - 2.0 mmol/L Blood 01/02/2025 3:13 AM CDT 01/02/2025 3:16 AM CDT us Yan Perry MD LAB BLOOD ORDERABL ES Final Result Performing Organization Address City/[facility]/ZIP Co de Phone Number NOEMI ARECHIGA [address] [address] [place] [address] * eGFR (01/02/2025 3:13 AM CDT) eGFR >90 >=60 mL/min/1. 73 m2 Comment: Interpretive Data Reference Interval Normal >/= 90 mL/min/1.73m2 Mildly decreased* 60 - 89 mL/min/1.73m2 Mildly to moderately decreased 45 - 59 mL/min/1.73m2 Moderately to severely decreased 30 - 44 mL/min/1.73m2 Severely decreased 15 - 29 mL/min/1.73m2 Kidney Failure < 15 mL/min/1.73m2 *Relative to young adult level Estimated glomerular filtration rate is determined by the 2020 CKD-EPI equation recommended by the National Kidney Foundation (A Unifying Approach to GFR Estimation: Recommendations of the NKF-ASK Task Force on Reassessing the Inclusion of Race in Diagnosing Kidney Disease, JASN 2020). The CKD-EPI equation should not be used for patients with unstable renal function and has not been validated in children and those over 70. Current interpretive data was last reviewed 2021. Blood 01/02/2025 3:13 AM CDT 01/02/2025 3:17 AM CDT us Nhi Pruett MD LAB BLOOD ORDERABLES Final Re sult [facility] [address] [address] Department [place] [address] * (ABNORMAL) Differential, auto (01/02/2025 3:13 AM CDT) Neutrophil abs 9.3(H) 1.5 - 6.5 K/cumm Imm gran abs 0.1 0.0 - 0.1 K/cumm [facility] Lymphocyte abs 1.0 0.8 - 3.3 K/cumm [facility] Monocyte abs 1.1(H) 0.2 - 0.8 K/cumm [facility] Eosinophil abs 0.0 0.0 - 0.5 K/cumm [facility] Basophil abs 0.0 0.0 - 0.1 K/cumm [facility] Neutrophil pct 81.3 % [facility] Comment: Interpretive Data Percent cell count reference ranges are not reported, since discordance with absolute values may lead to misinterpretation of CBC data. Current Interpretive Data was last revised on 2018. Imm gran pct 0.5 % [facility] Comment: Interpretive Data Percent cell count reference ranges are not reported, since discordance with absolute values may lead to misinterpretation of CBC data. Current Interpretive Data was last revised on 2018. Lymphocyte pct 8.7 % [facility] Comment: Interpretive Data Percent cell count reference ranges are not reported, since discordance with absolute values may lead to misinterpretation of CBC data. Current Interpretive Data was last revised on 2018. Monocyte pct 9.2 % [facility] Comment: Interpretive Data Percent cell count reference ranges are not reported, since discordance with absolute values may lead to misinterpretation of CBC data. Current Interpretive Data was last revised on 2018. Eosinophil pct 0.1 % [facility] Comment: Interpretive Data Percent cell count reference ranges are not reported, since discordance with absolute values may lead to misinterpretation of CBC data. Current Interpretive Data was last revised on 2018. Basophil pct 0.2 % [facility] Comment: Interpretive Data Percent cell count reference ranges are not reported, since discordance with absolute values may lead to misinterpretation of CBC data. Current Interpretive Data was last revised on 2018. Blood 01/02/2025 3:13 AM CDT 01/02/2025 3:17 AM CDT Nhi Pruett MD LAB BLOOD ORDERABLES Final Re sult [facility] [address] [address] Department [place] [address] * (ABNORMAL) CBC with auto differential (01/02/2025 3:13 AM CDT) WBC 11.4(H) 3.8 - 9.9 K/cumm Hgb 9.9(L) 11.9 - 15.5 g/dL [facility] Hct 29.2(L) 35.6 - 45.5 % [facility] Plt 191 150 - 400 K/cumm [facility] MPV 10.1 9.1 - 12.3 fL [facility] RBC 3.29(L) 3.90 - 5.20 M/cumm [facility] MCV 88.8 81.3 - 96.4 fL [facility] MCH 30.1 27.1 - 33.3 pg [facility] MCHC 33.9 32.3 - 35.7 g/dL [facility] RDW CV 13.2 11.1 - 14.9 % [facility] RDW SD 43.0 35.7 - 48.1 fL [facility] NRBC abs 0.00 0.00 - 0.01 K/cumm [facility] Blood 01/02/2025 3:13 AM CDT 01/02/2025 3:17 AM CDT Nhi Pruett MD LAB BLOOD ORDERABLES Final Re sult NOEMI ARECHIGA [id number] [address] [facility] [place], [place] [id number] * Magnesium (01/02/2025 3:13 AM CDT) Magnesium 2.5 1.4 - 2.5 mg/dL Blood 01/02/2025 3:13 AM CDT 01/02/2025 3:17 AM CDT Nhi Pruett MD LAB BLOOD ORDERABLES Final Re sult Performing Organization Address [facility] de Phone Number NOEMI ARECHIGA [address] [address] [employer] [place] [address] * (ABNORMAL) Blood gas, arterial (01/02/2025 3:13 AM CDT) pH, Art 7.40 7.35 - 7.45 PCO2, Arterial 38 35 - 45 mmHg [facility] PO2, Arterial 106 83 - 108 mmHg [facility] HCO3 Art (Calculated) 24 20 - 30 mmol/L [facility] BE, art -1 mmol/L [facility] Comment: Interpretive Data No Reference Range Established Current Interpretive Data was last revised on 2017 O2 Sat Art (Measured) 98(H) 90 - 95 % [facility] Blood 01/02/2025 3:13 AM CDT 01/02/2025 3:16 AM CDT Didier Quispe MD LAB BLOOD ORDERABLES Final Res ult Performing Organization Address [facility]/ZIP Co de Phone Number NOEMI ARECHIGA [address] [address] [facility] [place], [place] [phone] * (ABNORMAL) Basic metabolic panel (01/02/2025 3:13 AM CDT) Sodium 141 135 - 145 mmol/L Potassium, pl 4.4 3.3 - 4.9 mmol/L [facility] Chloride 108 97 - 110 mmol/L [facility] CO2 23 22 - 32 mmol/L [facility] Anion gap 10 2 - 15 mmol/L [facility] BUN 9 6 - 25 mg/dL [facility] Creatinine 0.70 0.60 - 1.10 mg/dL [facility] Glucose 125 70 - 199 mg/dL [facility] Comment: Interpretive Data Fasting glucose >/= 126 mg/dl is diagnostic for diabetes. Fasting is defined as no caloric intake for at least 8 hours. Fasting glucose between 100 mg/dl to 125 mg/dl is diagnostic of prediabetes. In a patient with classic symptoms of hyperglycemia or hyperglycemic crisis, a random glucose >/= 200 mg/dl is diagnostic for diabetes. In the absence of unequivocal hyperglycemia, results should be confirmed by repeat testing. The classification and Diagnosis of Diabetes Diabetes Care 2021; 46: S19-S40. Current interpretive data was last revised 2022. Calcium 8.1(L) 8.5 - 10.3 mg/dL [facility] Blood 01/02/2025 3:13 AM CDT 01/02/2025 3:17 AM CDT Nhi Pruett MD LAB BLOOD ORDERABLES Final Re sult Performing Organization Address [facility] Co de Phone Number [facility] [address] [address] [employer] [place] [address] * POCT glucose (01/02/2025 3:08 AM CDT) Glucose, POC 125 70 - 199 mg/dL POC Performer [id number] [facility] Blood 01/02/2025 3:08 AM CDT 01/02/2025 3:08 AM CDT Didier Quispe MD LAB POCT ORDERABLES - DEVICE F inal Result Performing Organization Address [facility] Co de Phone Number [facility] [address] [address] Department of [facility] [place] [address] * POCT glucose (01/02/2025 2:03 AM CDT) Glucose, POC 129 70 - 199 mg/dL POC Performer [id number] [facility] Blood 01/02/2025 2:03 AM CDT 01/02/2025 2:03 AM CDT Didier Quispe MD LAB POCT ORDERABLES - DEVICE F inal Result Performing Organization Address [facility] Co de Phone Number NOEMI ARECHIGA [address] [address] [facility] [place] [address] * POCT glucose (01/02/2025 1:06 AM CDT) Glucose, POC 135 70 - 199 mg/dL POC Performer [id number] [facility] Blood 01/02/2025 1:06 AM CDT 01/02/2025 1:06 AM CDT Didier Quispe MD LAB POCT ORDERABLES - DEVICE F inal Result Performing Organization Address [facility] Co de Phone Number NOEMI ARECHIGA [address] [address] [facility] [place] [address] * POCT glucose (01/01/2025 11:57 PM CDT) Glucose, POC 147 70 - 199 mg/dL POC Performer [id number] [facility] Blood 01/01/2025 11:5 7 PM CDT 01/01/2025 11:57 PM CDT Didier Quispe MD LAB POCT ORDERABLES - DEVICE F inal Result Performing Organization Address [facility] de Phone Number NOEMI ARECHIGA [address] [address] [facility] [place] [address] * POCT glucose (01/01/2025 10:57 PM CDT) Glucose, POC 163 70 - 199 mg/dL POC Performer [id number] [facility] Blood 01/01/2025 10:5 7 PM CDT 01/01/2025 10:57 PM CDT Didier Quispe MD LAB POCT ORDERABLES - DEVICE F inal Result Performing Organization Address [facility] Co de Phone Number NOEMI ARECHIGA [address] [address] [facility] [place] [address] * POCT glucose (01/01/2025 9:29 PM CDT) Glucose, POC 171 70 - 199 mg/dL POC Performer [id number] [facility] Blood 01/01/2025 9:29 PM CDT 01/01/2025 9:29 PM CDT Didier Quispe MD LAB POCT ORDERABLES - DEVICE F inal Result Performing Organization Address [facility] de Phone Number NOEMI ARECHIGA [address] [address] Department [facility] [place] [address] * Potassium, whole blood (01/01/2025 7:48 PM CDT) Potassium, bld 4.5 3.3 - 4.9 mmol/L Comment: Interpretive Data This method is not able to assess for hemolysis, which may falsely increase potassium concentrations. If further testing is needed to evaluate this result, consider in-laboratory plasma potassium. Current Interpretive Data was last revised on 2022. Blood 01/01/2025 7:48 PM CDT 01/01/2025 8:08 PM CDT Aly Suero NP LAB BLOOD ORDERABLES Fi nal Result Performing Organization Address [facility] Co de Phone Number [facility] [address] [address] [facility] [place] [address] * Calcium, ionized, whole blood (01/01/2025 7:48 PM CDT) Ca, ionized, bld 4.54 4.50 - 5.10 mg/dL Blood 01/01/2025 7:48 PM CDT 01/01/2025 7:50 PM CDT us Yan Perry MD LAB BLOOD ORDERABL ES Final Result Performing Organization Address [facility] Co de Phone Number NOEMI ARECHIGA [address] [address] [place] [address] * eGFR (01/01/2025 7:48 PM CDT) eGFR >90 >=60 mL/min/1. 73 m2 Comment: Interpretive Data Reference Interval Normal >/= 90 mL/min/1.73m2 Mildly decreased* 60 - 89 mL/min/1.73m2 Mildly to moderately decreased 45 - 59 mL/min/1.73m2 Moderately to severely decreased 30 - 44 mL/min/1.73m2 Severely decreased 15 - 29 mL/min/1.73m2 Kidney Failure < 15 mL/min/1.73m2 *Relative to young adult level Estimated glomerular filtration rate is determined by the 2020 CKD-EPI equation recommended by the National Kidney Foundation (A Unifying Approach to GFR Estimation: Recommendations of the NKF-ASK Task Force on Reassessing the Inclusion of Race in Diagnosing Kidney Disease, JASN 2020). The CKD-EPI equation should not be used for patients with unstable renal function and has not been validated in children and those over 70. Current interpretive data was last reviewed 2021. Blood 01/01/2025 7:48 PM CDT 01/01/2025 8:08 PM CDT us Yan Perry MD LAB BLOOD ORDERABL ES Final Result Performing Organization Address City/[facility]/ZIP Co de Phone Number NOEMI ARECHIGA [address] [address] [place] [address] * (ABNORMAL) CBC without differential (01/01/2025 7:48 PM CDT) WBC 15.2(H) 3.8 - 9.9 K/cumm Hgb 10.7(L) 11.9 - 15.5 g/dL [facility] Hct 32.4(L) 35.6 - 45.5 % [facility] Plt 210 150 - 400 K/cumm [facility] MPV 10.0 9.1 - 12.3 fL [facility] RBC 3.57(L) 3.90 - 5.20 M/cumm [facility] MCV 90.8 81.3 - 96.[address] [facility] MCH 30.0 27.1 - 33.3 pg [facility] MCHC 33.0 32.3 - 35.7 g/dL [facility] RDW CV 13.2 11.1 - 14.9 % [facility] RDW SD 43.5 35.7 - 48.1 fL [facility] NRBC abs 0.00 0.00 - 0.01 K/cumm [facility] Blood 01/01/2025 7:48 PM CDT 01/01/2025 7:51 PM CDT us Yan Perry MD LAB BLOOD ORDERABL ES Final Result Performing Organization Address [facility]/ZIP Co de Phone Number [facility] [phone] [address] [employer] [place] [address] * Magnesium (01/01/2025 7:48 PM CDT) [facility] Magnesium 2.4 1.4 - 2.5 mg/dL Blood 01/01/2025 7:48 PM CDT 01/01/2025 7:51 PM CDT Yan Perry MD LAB BLOOD ORDERABL ES Final Result Performing Organization Address [facility]/ZIP Co de Phone Number [facility] [address] [address] [employer] [place], [place] [phone] * (ABNORMAL) Blood gas, arterial (01/01/2025 7:48 PM CDT) pH, Art 7.33(L) 7.35 - 7.45 PCO2, Arterial 46(H) 35 - 45 mmHg [facility] PO2, Arterial 197(H) 83 - 108 mmHg [facility] HCO3 Art (Calculated) 23 20 - 30 mmol/L [facility] BE, art -1 mmol/L [facility] Comment: Interpretive Data No Reference Range Established Current Interpretive Data was last revised on 2017 O2 Sat Art (Measured) 100(H) 90 - 95 % [facility] Blood 01/01/2025 7:48 PM CDT 01/01/2025 7:50 PM CDT us Nhi Pruett MD LAB BLOOD ORDERABLES Final Re sult [facility] [address] [address] Department [place] [address] * (ABNORMAL) Basic metabolic panel (01/01/2025 7:48 PM CDT) Sodium 140 135 - 145 mmol/L Potassium, pl 4.7 3.3 - 4.9 mmol/L [facility] Chloride 107 97 - 110 mmol/L [facility] CO2 23 22 - 32 mmol/L [facility] Anion gap 10 2 - 15 mmol/L [facility] BUN 11 6 - 25 mg/dL [facility] Creatinine 0.76 0.60 - 1.10 mg/dL [facility] Glucose 165 70 - 199 mg/dL [facility] Comment: Interpretive Data Fasting glucose >/= 126 mg/dl is diagnostic for diabetes. Fasting is defined as no caloric intake for at least 8 hours. Fasting glucose between 100 mg/dl to 125 mg/dl is diagnostic of prediabetes. In a patient with classic symptoms of hyperglycemia or hyperglycemic crisis, a random glucose >/= 200 mg/dl is diagnostic for diabetes. In the absence of unequivocal hyperglycemia, results should be confirmed by repeat testing. The classification and Diagnosis of Diabetes Diabetes Care 202; 46: S19-S40. Current interpretive data was last revised 2022. Calcium 8.1(L) 8.5 - 10.3 mg/dL [facility] Blood 01/01/2025 7:48 PM CDT 01/01/2025 7:51 PM CDT us Yan Perry MD LAB BLOOD ORDERABL ES Final Result Performing Organization Address City/[facility]/ZIP Co de Phone Number NOEMI ARECHIGA [phone] [address] [facility] [place] [address] * POCT glucose (01/01/2025 7:46 PM CDT) Glucose, POC 156 70 - 199 mg/dL POC Performer [id number] [facility] Blood 01/01/2025 7:46 PM CDT 01/01/2025 7:46 PM CDT Didier Quispe MD LAB POCT ORDERABLES - DEVICE F inal Result Performing Organization Address City/[facility] Co de Phone Number NOEMI ARECHIGA [address] [address] [facility] [place] [address] * Critical Care (01/01/2025 7:43 PM CDT) Narrative Ramsey Garcia MD - 01/01/2025 7:43 PM CDT Ramsey Garcia MD 01/02/2025 5:37 AM Critical Care Performed by: Aly Suero NP Authorized by: Aly Suero NP CRITICAL CARE: Team: XAVI Shift: PM Level of Billing: Critical Care My time spent with this patient was 90 minutes: Critical Provider Statement: I have seen and examined the patient on this day of service. I have reviewed and confirmed the history, physical exam, laboratory and radiologic data as documented in the signed ICU note. I have reviewed and discussed my treatment plan with the ICU team and other medical/nutrition consultant staff, making frequent assessments and decisions regarding this patient's complex medical care. Critical Care time was exclusive of time spent performing separately billed procedures, treating other patients, and teaching. This time was in addition to and separate from critical care provided by other practitioners in my group on this day of service. Critical Care was necessary to treat or prevent imminent or life-threatening deterioration of the following conditions: I spent time reviewing and interpreting data from bedside monitors, laboratory results, and imaging, I spent time discussing the management of this critically ill patient with consultants and the medical staff and I spent time documenting in the medical record Aly Suero FINANCIAL ANALYSIS CONSULTANT IN CLINIC/BEDSIDE ORDER DMITRI Final Result * POCT glucose (01/01/2025 6:15 PM CDT) Glucose, POC 110 70 - 199 mg/dL POC Performer [id number] [facility] Blood 01/01/2025 6:15 PM CDT 01/01/2025 6:15 PM CDT Didier Quispe MD LAB POCT ORDERABLES - DEVICE F inal Result Performing Organization Address [facility]/ZIP Co de Phone Number TARALAURA ARECHIGA [address] [address] [facility] [place], [place] [phone] * POCT glucose (01/01/2025 5:16 PM CDT) Glucose, POC 108 70 - 199 mg/dL POC Performer [id number] [facility] Blood 01/01/2025 5:16 PM CDT 01/01/2025 5:16 PM CDT Didier Quispe MD LAB POCT ORDERABLES - DEVICE F inal Result Performing Organization Address [facility] Co de Phone Number TARALAURA ARECHIGA [address] [address] Department [facility] [place] [address] * POCT glucose (01/01/2025 4:05 PM CDT) Glucose, POC 95 70 - 199 mg/dL POC Performer [id number] [facility] Blood 01/01/2025 4:05 PM CDT 01/01/2025 4:05 PM CDT Didier Quispe MD LAB POCT ORDERABLES - DEVICE F inal Result Performing Organization Address [facility]/ZIP Co de Phone Number NOEMI [address] [address] [facility] [place] [address] * XR Chest 1 View - Portable (01/01/2025 3:54 PM CDT) Anatomical Region Laterality Modality Body, Chest N/A Computed Radiogr aphy 01/01/2025 3:56 PM CDT Impressions 01/01/2025 3:56 PM CDT No failure. Electronically signed by: Nilson Solomon M.D. Narrative 01/01/2025 3:56 PM CDT EXAMINATION: XR CHEST 1 VIEW HISTORY: The patient is a 44-year-old female who has had cardiac surgery. TECHNIQUE: AP portable view of the chest. FINDINGS: Endotracheal tube and nasogastric tubes are in good position. The tip of the [place] catheter is in the proximal right main pulmonary artery. Bilateral thoracostomy tubes and mediastinal drain in place. Borderline cardiomegaly. No failure. Allowing for the poor inspiration there is no active infiltrate. Procedure Note Nilson Solomon MD - 01/01/2025 EXAMINATION: XR CHEST 1 VIEW HISTORY: The patient is a 44-year-old female who has had cardiac surgery. TECHNIQUE: AP portable view of the chest. FINDINGS: Endotracheal tube and nasogastric tubes are in good position. The tip of the [place]say catheter is in the proximal right main pulmonary artery. Bilateral thoracostomy tubes and mediastinal drain in place. Borderline cardiomegaly. No failure. Allowing for the poor inspiration there is no active infiltrate. IMPRESSION: No failure. Electronically signed by: Nilson Solomon M.D. us Nhi Pruett MD IMG XR PROCEDURES Final Resul t * (ABNORMAL) Lactate (01/01/2025 3:41 PM CDT) Lactate 2.9(H) 0.7 - 2.0 mmol/L Blood 01/01/2025 3:41 PM CDT 01/01/2025 3:54 PM CDT Didier Quispe MD LAB BLOOD ORDERABLES Final Res ult NOEMI ARECHIGA [address] [address] [facility] [place] [address] * Calcium, ionized, whole blood (01/01/2025 3:41 PM CDT) [facility] Ca, ionized, bld 4.65 4.50 - 5.10 mg/dL Blood 01/01/2025 3:41 PM CDT 01/01/2025 3:48 PM CDT Didier Quispe MD LAB BLOOD ORDERABLES Final Res ult Performing Organization Address [facility] Co de Phone Number NOEMI ARECHIGA [address] [address] [facility] [place] [address] * Phosphorus (01/01/2025 3:41 PM CDT) [facility] Phosphorus, pl 3.4 2.3 - 4.5 mg/dL Blood 01/01/2025 3:41 PM CDT 01/01/2025 3:48 PM CDT Didier Quispe MD LAB BLOOD ORDERABLES Final Res ult Performing Organization Address [facility] Co de Phone Number NOEMI ARECHIGA [address] [address] [facility] [place] [address] * Magnesium (01/01/2025 3:41 PM CDT) [facility] Magnesium 2.4 1.4 - 2.5 mg/dL Blood 01/01/2025 3:41 PM CDT 01/01/2025 3:48 PM CDT Didier Quispe MD LAB BLOOD ORDERABLES Final Res ult Performing Organization Address [facility] Co de Phone Number NOEMI ARECHIGA [address] [address] [facility] [place] [address] * eGFR (01/01/2025 3:40 PM CDT) [facility] eGFR >90 >=60 mL/min/1. 73 m2 Comment: Interpretive Data Reference Interval Normal >/= 90 mL/min/1.73m2 Mildly decreased* 60 - 89 mL/min/1.73m2 Mildly to moderately decreased 45 - 59 mL/min/1.73m2 Moderately to severely decreased 30 - 44 mL/min/1.73m2 Severely decreased 15 - 29 mL/min/1.73m2 Kidney Failure < 15 mL/min/1.73m2 *Relative to young adult level Estimated glomerular filtration rate is determined by the 2020 CKD-EPI equation recommended by the National Kidney Foundation (A Unifying Approach to GFR Estimation: Recommendations of the NKF-ASK Task Force on Reassessing the Inclusion of Race in Diagnosing Kidney Disease, JASN 2020). The CKD-EPI equation should not be used for patients with unstable renal function and has not been validated in children and those over 70. Current interpretive data was last reviewed 2021. Blood 01/01/2025 3:40 PM CDT 01/01/2025 3:48 PM CDT Nhi Pruett MD LAB BLOOD ORDERABLES Final Re sult Performing Organization Address City/[facility]/ZIP Co de Phone Number NOEMI HAWK [address] [address] [employer] [place] [address] * aPTT (01/01/2025 3:40 PM CDT) aPTT 28 28 - 38 sec Comment: Interpretive Data Heparin therapeutic range: 66.0 - 100.0 seconds. Range based on correlation with therapeutic heparin activity range of 0.3 - 0.7 Units/mL. Current interpretive data was last revised on 2023. Blood 01/01/2025 3:40 PM CDT 01/01/2025 3:50 PM CDT Nhi Pruett MD LAB BLOOD ORDERABLES Final Re sult Performing Organization Address City/[facility]/ZIP Co de Phone Number NOEMI HAWK [address] [address] [facility] [place] [address] * (ABNORMAL) Protime-INR (01/01/2025 3:40 PM CDT) PT 13.4(H) 9.7 - 13.0 sec INR 1.24(H) 0.90 - 1.20 [facility] Comment: Interpretive data Oral anticoagulant therapeutic ranges: Venous thromboembolism prophylaxis or treatment: 2.0-3.0 CARDIOLOGY Standard range: 2.0-3.0 High-intensity range: 2.5-3.5 Refer to indication-specific guidelines for appropriate target ranges for prosthetic heart valve replacement. Current interpretive data was last revised on 2019. Blood 01/01/2025 3:40 PM CDT 01/01/2025 3:50 PM CDT us Nhi Pruett MD LAB BLOOD ORDERABLES Final Re sult [facility] [address] [address] Department [place] [address] * (ABNORMAL) CBC without differential (01/01/2025 3:40 PM CDT) WBC 16.8(H) 3.8 - 9.9 K/cumm Hgb 11.1(L) 11.9 - 15.5 g/dL [facility] Hct 32.9(L) 35.6 - 45.5 % [facility] Plt 220 150 - 400 K/cumm [facility] MPV 9.8 9.1 - 12.3 fL [facility] RBC 3.71(L) 3.90 - 5.20 M/cumm [facility] MCV 88.7 81.3 - 96.4 fL [facility] MCH 29.9 27.1 - 33.3 pg [facility] MCHC 33.7 32.3 - 35.7 g/dL [facility] RDW CV 13.2 11.1 - 14.9 % [facility] RDW SD 42.7 35.7 - 48.1 fL [facility] NRBC abs 0.00 0.00 - 0.01 K/cumm [facility] Blood 01/01/2025 3:40 PM CDT 01/01/2025 3:50 PM CDT Nhi Pruett MD LAB BLOOD ORDERABLES Final Re sult Performing Organization Address [facility] Co de Phone Number NOEMI ARECHIGA [address] [address] Department [place] [address] * (ABNORMAL) Blood gas, arterial (01/01/2025 3:40 PM CDT) pH, Art 7.32(L) 7.35 - 7.45 PCO2, Arterial 45 35 - 45 mmHg [facility] PO2, Arterial 269(H) 83 - 108 mmHg [facility] HCO3 Art (Calculated) 22 20 - 30 mmol/L [facility] BE, art -2 mmol/L [facility] Comment: Interpretive Data No Reference Range Established Current Interpretive Data was last revised on 2017 O2 Sat Art (Measured) 100(H) 90 - 95 % [facility] Blood 01/01/2025 3:40 PM CDT 01/01/2025 3:48 PM CDT Nhi Pruett MD LAB BLOOD ORDERABLES Final Re sult Performing Organization Address [facility] Co de Phone Number NOEMI ARECHIGA [address] [address] Department [place] [address] * (ABNORMAL) Basic metabolic panel (01/01/2025 3:40 PM CDT) Sodium 140 135 - 145 mmol/L Potassium, pl 5.0(H) 3.3 - 4.9 mmol/L [facility] Chloride 110 97 - 110 mmol/L [facility] CO2 22 22 - 32 mmol/L [facility] Anion gap 8 2 - 15 mmol/L [facility] BUN 12 6 - 25 mg/dL [facility] Creatinine 0.80 0.60 - 1.10 mg/dL [facility] Glucose 121 70 - 199 mg/dL [facility] Comment: Interpretive Data Fasting glucose >/= 126 mg/dl is diagnostic for diabetes. Fasting is defined as no caloric intake for at least 8 hours. Fasting glucose between 100 mg/dl to 125 mg/dl is diagnostic of prediabetes. In a patient with classic symptoms of hyperglycemia or hyperglycemic crisis, a random glucose >/= 200 mg/dl is diagnostic for diabetes. In the absence of unequivocal hyperglycemia, results should be confirmed by repeat testing. The classification and Diagnosis of Diabetes Diabetes Care 2021; 46: S19-S40. Current interpretive data was last revised 2022. Calcium 8.1(L) 8.5 - 10.3 mg/dL [facility] Blood 01/01/2025 3:40 PM CDT 01/01/2025 3:48 PM CDT Nhi Pruett MD LAB BLOOD ORDERABLES Final Re sult Performing Organization Address [facility]/ZIP Co de Phone Number NOEMI [phone] [address] Department [facility] [place] [address] * POCT glucose (01/01/2025 3:06 PM CDT) Glucose, POC 122 70 - 199 mg/dL POC Performer [id number] [facility] Blood 01/01/2025 3:06 PM CDT 01/01/2025 3:06 PM CDT Didier Quispe MD LAB POCT ORDERABLES - DEVICE F inal Result Performing Organization Address [facility] Co de Phone Number [facility] [address] [address] [facility] [place] [address] * Critical Care (01/01/2025 3:05 PM CDT) Narrative Remi Carlton MD - 01/01/2025 3:05 PM CDT Remi Carlton MD 01/02/2025 10:31 AM Critical Care Performed by: Carolin Feng NP Authorized by: Carolin Feng NP CRITICAL CARE: Team: XAVI Shift: AM Level of Billing: Critical Care My time spent with this patient was 90 minutes: Critical Provider Statement: I have seen and examined the patient on this day of service. I have reviewed and confirmed the history, physical exam, laboratory and radiologic data as documented in the signed ICU note. I have reviewed and discussed my treatment plan with the ICU team and other medical/nutrition consultant staff, making frequent assessments and decisions regarding this patient's complex medical care. Critical Care time was exclusive of time spent performing separately billed procedures, treating other patients, and teaching. This time was in addition to and separate from critical care provided by other practitioners in my group on this day of service. Critical Care was necessary to treat or prevent imminent or life-threatening deterioration of the following conditions: I spent time talking to this patient's surrogate decision maker to determine treatment plans due to patient's inability to participate in decision making, I spent time talking to this patient's relatives to obtain additional medical history due to patient's inabililty to provide history, I spent time documenting in the medical record, I spent time discussing the management of this critically ill patient with consultants and the medical staff and I spent time reviewing and interpreting data from bedside monitors, laboratory results, and imaging Carolin Feng NP [facility] Final Result * (ABNORMAL) POC Blood Gas and Chemistries, Arterial - (01/01/2025 2:38 PM CDT) pH, Art POC 7.37 7.35 - 7.45 pCO2, Art POC 38 35 - 45 mmHg [facility] pO2, Art POC 266(H) 83 - 108 mmHg [facility] Na, POC 138 135 - 145 mmol/L [facility] K POC 4.9 3.3 - 4.9 mmol/L [facility] Comment: Interpretive Data This method is not able to assess for hemolysis, which may falsely increase potassium concentrations. If further testing is needed to evaluate this result, consider in-laboratory plasma potassium. Current Interpretive Data was last revised on 2022. Ionized Ca, POC 4.62 4.50 - 5.10 mg/dL [facility] Glucose, POC 109 70 - 199 mg/dL [facility] Lactate, POC 2.8(H) 0.7 - 2.0 mmol/L [facility] O2Hb, Art POC 97.3(H) 90.0 - 95.0 % [facility] SO2 (marshall) arterial 99(H) 90 - 95 % [facility] Total CO2, Art POC 23 21 - 30 mmol/L [facility] BE, art, POC -3 mmol/L [facility] Hct, POC 34.0(L) 35.6 - 45.5 % [facility] Total Hb, POC 11.2(L) 11.9 - 15.5 g/dL [facility] Blood 01/01/2025 2:38 PM CDT 01/01/2025 2:38 PM CDT us Didier Quispe MD LAB POCT ORDERABLES - [place] [id number] [address] Department [place] [address] * (ABNORMAL) POC Blood Gas and Chemistries, Arterial - (01/01/2025 2:01 PM CDT) pH, Art POC 7.34(L) 7.35 - 7.45 pCO2, Art POC 41 35 - 45 mmHg [facility] pO2, Art POC 107 83 - 108 mmHg [facility] Na, POC 139 135 - 145 mmol/L [facility] K POC 5.7(H) 3.3 - 4.9 mmol/L [facility] Comment: Interpretive Data This method is not able to assess for hemolysis, which may falsely increase potassium concentrations. If further testing is needed to evaluate this result, consider in-laboratory plasma potassium. Current Interpretive Data was last revised on 2022. Ionized Ca, POC 5.62(H) 4.50 - 5.10 mg/dL [facility] Glucose, POC 114 70 - 199 mg/dL [facility] Lactate, POC 2.5(H) 0.7 - 2.0 mmol/L [facility] O2Hb, Art POC 97.8(H) 90.0 - 95.0 % [facility] SO2 (marshall) arterial 99(H) 90 - 95 % [facility] Total CO2, Art POC 23 21 - 30 mmol/L [facility] BE, art, POC -4 mmol/L [facility] Hct, POC 30.0(L) 35.6 - 45.5 % [facility] Total Hb, POC 9.9(L) 11.9 - 15.5 g/dL [facility] Blood 01/01/2025 2:01 PM CDT 01/01/2025 2:01 PM CDT us Nhi Pruett MD LAB POCT ORDERABLES - [place] [address] [address] Department [place] [address] * (ABNORMAL) POC Blood Gas and Chemistries, Arterial - (01/01/2025 1:44 PM CDT) pH, Art POC 7.32(L) 7.35 - 7.45 pCO2, Art POC 43 35 - 45 mmHg [facility] pO2, Art POC 132(H) 83 - 108 mmHg [facility] Na, POC 136 135 - 145 mmol/L [facility] K POC 6.2(C) 3.3 - 4.9 mmol/L [facility] Comment: Interpretive Data This method is not able to assess for hemolysis, which may falsely increase potassium concentrations. If further testing is needed to evaluate this result, consider in-laboratory plasma potassium. Current Interpretive Data was last revised on 2022. Ionized Ca, POC 4.07(L) 4.50 - 5.10 mg/dL [facility] Glucose, POC 132 70 - 199 mg/dL [facility] Lactate, POC 2.6(H) 0.7 - 2.0 mmol/L [facility] O2Hb, Art POC 96.9(H) 90.0 - 95.0 % [facility] SO2 (marshall) arterial 99(H) 90 - 95 % [facility] Total CO2, Art POC 24 21 - 30 mmol/L [facility] BE, art, POC -4 mmol/L [facility] Hct, POC 31.0(L) 35.6 - 45.5 % [facility] Total Hb, POC 10.3(L) 11.9 - 15.5 g/dL [facility] Blood 01/01/2025 1:44 PM CDT 01/01/2025 1:44 PM CDT Nhi Pruett MD LAB POCT ORDERABLES - DEVICE Final Result NOEMI ARECHIGA [address] [address] [facility] [place] [address] * POC Activated Clotting Time, High Range (01/01/2025 1:43 PM CDT) ACT 93 87 - 138 sec POC Performer [id number] [facility] Blood 01/01/2025 1:43 PM CDT 01/01/2025 1:43 PM CDT Nhi Pruett MD LAB BLOOD ORDERABLES Final Re sult Performing Organization Address [facility] Co de Phone Number NOEMI [id number] [facility] [place] [address] * (ABNORMAL) POC Blood Gas and Chemistries, Arterial - (01/01/2025 1:00 PM CDT) pH, Art POC 7.39 7.35 - 7.45 pCO2, Art POC 40 35 - 45 mmHg [facility] pO2, Art POC 257(H) 83 - 108 mmHg [facility] Na, POC 134(L) 135 - 145 mmol/L [facility] K POC 6.8(C) 3.3 - 4.9 mmol/L [facility] Comment: Interpretive Data This method is not able to assess for hemolysis, which may falsely increase potassium concentrations. If further testing is needed to evaluate this result, consider in-laboratory plasma potassium. Current Interpretive Data was last revised on 2022. Ionized Ca, POC 4.13(L) 4.50 - 5.10 mg/dL [facility] Glucose, POC 134 70 - 199 mg/dL [facility] Lactate, POC 1.6 0.7 - 2.0 mmol/L [facility] O2Hb, Art POC 97.4(H) 90.0 - 95.0 % [facility] SO2 (marshall) arterial 100(H) 90 - 95 % [facility] Total CO2, Art POC 25 21 - 30 mmol/L [facility] BE, art, POC -1 mmol/L [facility] Hct, POC 31.0(L) 35.6 - 45.5 % [facility] Total Hb, POC 10.3(L) 11.9 - 15.5 g/dL [facility] Blood 01/01/2025 1:00 PM CDT 01/01/2025 1:00 PM CDT Nhi Pruett MD LAB POCT ORDERABLES - DEVICE Final Result Performing Organization Address [facility] Co de Phone Number NOEMI ARECHIGA [phone] [address] [facility] [place] [address] * (ABNORMAL) POC Activated Clotting Time, High Range (01/01/2025 12:58 PM CDT) ACT 603(H) 87 - 138 sec POC Performer [id number] [facility] CH Blood 01/01/2025 12:5 8 PM CDT 01/01/2025 12:58 PM CDT Result [facility] Nhi Pruett MD LAB BLOOD ORDERABLES Final Re sult Performing Organization Address [facility] de Phone Number NOEMI HAWK [address] [address] [facility] [place], [place] [id number] * Platelet count (01/01/2025 12:50 PM CDT) Plt 241 150 - 400 K/cumm Blood 01/01/2025 12:5 0 PM CDT 01/01/2025 12:57 PM CDT Narrative [facility] - 01/01/2025 1:03 PM CDT Please call results to ext. [phone]. Thanks. Didier Quispe MD LAB BLOOD ORDERABLES Final Res ult Performing Organization Address [facility] Co de Phone Number TARALAURA ARECHIGA [phone] [address] [facility] [place], [place] [id number] * (ABNORMAL) POC Blood Gas and Chemistries, Arterial - (01/01/2025 12:35 PM CDT) pH, Art POC 7.36 7.35 - 7.45 pCO2, Art POC 40 35 - 45 mmHg [facility] pO2, Art POC 250(H) 83 - 108 mmHg [facility] Na, POC 132(L) 135 - 145 mmol/L [facility] K POC 6.7(C) 3.3 - 4.9 mmol/L [facility] Comment: Interpretive Data This method is not able to assess for hemolysis, which may falsely increase potassium concentrations. If further testing is needed to evaluate this result, consider in-laboratory plasma potassium. Current Interpretive Data was last revised on 2022. Ionized Ca, POC 4.13(L) 4.50 - 5.10 mg/dL [facility] Glucose, POC 134 70 - 199 mg/dL [facility] Lactate, POC 1.4 0.7 - 2.0 mmol/L [facility] O2Hb, Art POC 97.5(H) 90.0 - 95.0 % [facility] SO2 (marshall) arterial 99(H) 90 - 95 % [facility] Total CO2, Art POC 24 21 - 30 mmol/L [facility] BE, art, POC -3 mmol/L [facility] Hct, POC 32.0(L) 35.6 - 45.5 % [facility] Total Hb, POC 10.7(L) 11.9 - 15.5 g/dL [facility] Blood 01/01/2025 12:3 5 PM CDT 01/01/2025 12:35 PM CDT us Nhi Pruett MD LAB POCT ORDERABLES - DEVICE Final Result NOEMI [address] [address] Department [place] [address] * (ABNORMAL) POC Activated Clotting Time, High Range (01/01/2025 12:32 PM CDT) ACT 514(H) 87 - 138 sec POC Performer [id number] [facility] Blood 01/01/2025 12:3 2 PM CDT 01/01/2025 12:32 PM CDT Nhi Pruett MD LAB BLOOD ORDERABLES Final Re sult [facility] [address] [address] Department [place] [address] * (ABNORMAL) POC Blood Gas and Chemistries, Arterial - (01/01/2025 12:06 PM CDT) pH, Art POC 7.31(L) 7.35 - 7.45 pCO2, Art POC 39 35 - 45 mmHg [facility] pO2, Art POC 210(H) 83 - 108 mmHg [facility] Na, POC 131(L) 135 - 145 mmol/L [facility] K POC 6.1(C) 3.3 - 4.9 mmol/L [facility] Comment: Interpretive Data This method is not able to assess for hemolysis, which may falsely increase potassium concentrations. If further testing is needed to evaluate this result, consider in-laboratory plasma potassium. Current Interpretive Data was last revised on 2022. Ionized Ca, POC 4.15(L) 4.50 - 5.10 mg/dL [facility] Glucose, POC 122 70 - 199 mg/dL [facility] Lactate, POC 1.7 0.7 - 2.0 mmol/L [facility] O2Hb, Art POC 98.1(H) 90.0 - 95.0 % [facility] SO2 (marshall) arterial 100(H) 90 - 95 % [facility] Total CO2, Art POC 21 21 - 30 mmol/L [facility] BE, art, POC -6 mmol/L [facility] Hct, POC 32.0(L) 35.6 - 45.5 % [facility] Total Hb, POC 10.7(L) 11.9 - 15.5 g/dL [facility] Blood 01/01/2025 12:0 6 PM CDT 01/01/2025 12:06 PM CDT Nhi Pruett MD LAB POCT ORDERABLES - DEVICE Final Result NOEMI ARECHIGA [address] [address] Department [place] [address] * (ABNORMAL) POC Activated Clotting Time, High Range (01/01/2025 12:04 PM CDT) ACT 570(H) 87 - 138 sec POC Performer [id number] [facility] Blood 01/01/2025 12:0 4 PM CDT 01/01/2025 12:04 PM CDT us Nhi Pruett MD LAB BLOOD ORDERABLES Final Re sult Performing Organization Address City/[facility]/ZIP Co de Phone Number NOEMI ARECHIGA [phone] [address] Department [place] [address] * (ABNORMAL) POC Blood Gas and Chemistries, Arterial - (01/01/2025 11:48 AM CDT) pH, Art POC 7.34(L) 7.35 - 7.45 pCO2, Art POC 39 35 - 45 mmHg [facility] pO2, Art POC 310(H) 83 - 108 mmHg [facility] Na, POC 134(L) 135 - 145 mmol/L [facility] K POC 5.3(H) 3.3 - 4.9 mmol/L [facility] Comment: Interpretive Data This method is not able to assess for hemolysis, which may falsely increase potassium concentrations. If further testing is needed to evaluate this result, consider in-laboratory plasma potassium. Current Interpretive Data was last revised on 2022. Ionized Ca, POC 4.40(L) 4.50 - 5.10 mg/dL [facility] Glucose, POC 118 70 - 199 mg/dL [facility] Lactate, POC 1.3 0.7 - 2.0 mmol/L [facility] O2Hb, Art POC 97.6(H) 90.0 - 95.0 % [facility] SO2 (marshall) arterial 100(H) 90 - 95 % [facility] Total CO2, Art POC 22 21 - 30 mmol/L [facility] BE, art, POC -4 mmol/L [facility] Hct, POC 40.0 35.6 - 45.5 % [facility] Total Hb, POC 13.3 11.9 - 15.5 g/dL [facility] Blood 01/01/2025 11:4 8 AM CDT 01/01/2025 11:48 AM CDT Nhi Pruett MD LAB POCT ORDERABLES - DEVICE Final Result Performing Organization Address [facility] Co de Phone Number NOEMI ARECHIGA [phone] [address] Department [facility] [place] [address] * (ABNORMAL) POC Activated Clotting Time, High Range (01/01/2025 11:46 AM CDT) ACT 698(H) 87 - 138 sec POC Performer [id number] [facility] Blood 01/01/2025 11:4 6 AM CDT 01/01/2025 11:46 AM CDT Nhi Pruett MD LAB BLOOD ORDERABLES Final Re sult Performing Organization Address [facility] Co de Phone Number NOEMI ARECHIGA [phone] [address] [facility] [place] [address] * (ABNORMAL) POC Activated Clotting Time, High Range (01/01/2025 10:50 AM CDT) ACT 564(H) 87 - 138 sec POC Performer [id number] [facility] CH Blood 01/01/2025 10:5 0 AM CDT 01/01/2025 10:50 AM CDT Nhi Pruett MD LAB BLOOD ORDERABLES Final Re sult Performing Organization Address [facility] Co de Phone Number NOEMI ARECHIGA [address] [address] Department [facility] [place] [address] * BW AN SHEATH INTRODUCER PERFORMABLE, PULMONARY ARTERY CATH (01/01/2025 10:03 AM CDT) Narrative Fifi Keys MD - 01/01/2025 10:03 AM CDT Fifi Keys MD 01/01/2025 10:46 AM Central Venous Line Patient location: OR End Time: 01/01/2025 9:25 AM Indication: central venous access and CVP monitoring Staff: Supervising provider: Fifi Keys MD Placed by: AA: John Mccarthy AA Procedure prep: Patient position: Trendelenburg. PPE: provider hand hygiene, provider hat/mask, sterile gloves, sterile gown, full body drape, sterile probe covers, sterile gel and large sterile drape. Prep solution: chlorhexadine/alcohol was applied to area. Ultrasound Evaluation: Ultrasound was prepped into field. Ultrasound image(s) saved to archive. Central line: Laterality: right Site: internal jugular Catheter type: multi-lumen access catheter (MAC) Catheter size: 9 Fr. Catheter length: 11.5 cm Technique: anatomy identified with surface landmarks, anatomy identified with ultrasound, vein located with finder needle, Seldinger technique, wire threaded easily and wire removed intact Venous verification: pressure transduced and ultrasound confirmation Post insertion: all ports aspirated, all ports flushed easily, line sutured in place and occlusive dressing applied Number of attempts: 1 PA catheter placement: PA catheter type: oximetric PA catheter size: 8 Fr PA catheter laterality: right PA catheter site: internal jugular Placement guided by: pressure tracing changes and verified by DEISI PA catheter depth 48 cmNo Assessment: Events: patient tolerated procedure well with no complications Additional comments: Placed by Lucia LOUIS Fifi Keys MD ANESTHESIA ORDERABLES Final Resu lt * MN AN ELECTIVE ENDOTRACHEAL AIRWAY (01/01/2025 10:02 AM CDT) Narrative Fifi Keys MD - 01/01/2025 10:02 AM CDT Fifi Keys MD 01/01/2025 10:46 AM Airway Patient location: OR Date/time: 01/01/2025 9:02 AM Indications for airway management: anesthesia Difficult airway: no Staff: Supervising provider: Fifi Keys MD Placed by: Anesthesiologist: Fifi Keys MD AA: John Mccarthy AA Emergent airway documentation: Risks and benefits discussed: yes Consent obtained: yes Consent given by: patient Airway prep: Preoxygenated: yes Patient position: sniffing Mask difficulty assessment: 1 - vent by mask Spontaneous ventilation during airway: absent Sedation level during airway: GA Final airway details: Final airway type: endotracheal airway Tube type: ETT ETT size: 7.5 mm Cuffed: yes Technique used for successful ETT placement: video laryngoscopy Insertion site: oral Blade type: Ken Video blade type: Taylor Blade size: 3 Cormack-Lehane (video): grade I - full view of glottis Cuff inflated with: air ETT to lips: 21 cm Placement verified by: auscultation and CO2 detection Airway secured with: silk tape Number of attempts: 1 Additional comments: Gentle and atraumatic placement of endotracheal tube. Endotracheal tube cuff inflated to minimal occulusion pressure. Dentition noted to be same as preoperative evaluation. us Fifi Keys MD ANESTHESIA ORDERABLES Final Resu lt * (ABNORMAL) POC Blood Gas and Chemistries, Arterial - (01/01/2025 9:44 AM CDT) pH, Art POC 7.37 7.35 - 7.45 pCO2, Art POC 39 35 - 45 mmHg [facility] pO2, Art POC 261(H) 83 - 108 mmHg [facility] Na, POC 135 135 - 145 mmol/L [facility] K POC 4.4 3.3 - 4.9 mmol/L [facility] Comment: Interpretive Data This method is not able to assess for hemolysis, which may falsely increase potassium concentrations. If further testing is needed to evaluate this result, consider in-laboratory plasma potassium. Current Interpretive Data was last revised on 2022. Ionized Ca, POC 4.48(L) 4.50 - 5.10 mg/dL [facility] Glucose, POC 94 70 - 199 mg/dL [facility] Lactate, POC 1.5 0.7 - 2.0 mmol/L [facility] O2Hb, Art POC 97.5(H) 90.0 - 95.0 % [facility] SO2 (marshall) arterial 100(H) 90 - 95 % [facility] Total CO2, Art POC 24 21 - 30 mmol/L [facility] BE, art, POC -2 mmol/L [facility] Hct, POC 40.0 35.6 - 45.5 % [facility] Total Hb, POC 13.2 11.9 - 15.5 g/dL NO[facility]I CH Blood 01/01/2025 9:44 AM CDT 01/01/2025 9:44 AM CDT Nhi Pruett MD LAB POCT ORDERABLES - DEVICE Final Result Performing Organization Address [facility] Co de Phone Number NOEMI ARECHIGA [address] [address] [facility] [place] [address] * POC Activated Clotting Time, High Range (01/01/2025 9:41 AM CDT) ACT 90 87 - 138 sec POC Performer [id number] [facility] CH Blood 01/01/2025 9:41 AM CDT 01/01/2025 9:41 AM CDT Nhi Pruett MD LAB BLOOD ORDERABLES Final Re sult Performing Organization Address [facility] Co de Phone Number NOEMI ARECHIGA [address] [address] [facility] [place] [address] * DEISI (01/01/2025 9:40 AM CDT) Anatomical Region Laterality Modality Other Narrative 01/01/2025 9:40 AM CDT Fifi Keys MD 01/01/2025 9:41 AM DEISI Date/time: 01/01/2025 9:40 AM Staff: Supervising anesthesiologist: Fifi Keys MD Performed by: Anesthesiologist: Fifi Keys MD Preprocedure checklist: patient identified, procedure contraindications assessed and DEISI probe inserted into esophagus using lubricating jelly General procedure Information: Reason for procedure/indications: assessment of surgical repair and hemodynamic monitoring Procedure performed at surgeon's request: yes Results discussed with surgeon: yes Images submitted to archive: no Patient location: OR Intubated: yes Bite blocked placed: yes Probe Insertion: easy Complications: no Probe type: adult Modalities: 2D imaging, continuous wave Doppler, pulsed wave Doppler and color Doppler Echocardiographic and doppler measurements: Ventricles: Left ventricle: Cavity size: normal Hypertrophy: No Thrombus: No Global function: normal LVEF%: 50-60 Right ventricle: Cavity size: normal Hypertrophy: no Thrombus: No Global function: normal RVEF%: normal Interventricular septum: normal Regional function: 1- Basal anteroseptal: normal 2- Basal anterior: normal 3- Basal anterolateral: normal 4- Basal inferolateral: normal 5- Basal inferior: normal 6- Basal inferoseptal: normal 7- Mid anteroseptal: normal 8- Mid anterior: normal 9- Mid anterolateral: normal 10- Mid inferolateral: normal 11- Mid inferior: normal 12- Mid inferoseptal: normal 13- Apical anterior: normal 14- Apical lateral: normal 15- Apical inferior: normal 16- Apical septal: normal 17- [place]: normal Valves: Aortic Valve: Annulus: normal Leaflet morphology: normal Leaflet motion: normal Stenosis: none Regurgitation: none Mitral valve: Annulus: normal Leaflet morphology anterior: normal Leaflet morphology posterior: normal Leaflet motion anterior: normal Leaflet motion posterior: normal Stenosis: none Regurgitation: none Tricuspid valve: Annulus: normal Leaflet morphology: normal Leaflet motion: normal Stenosis: none Regurgitation: mild Aorta: Ascending aorta: Size: normal Dissection: no Plaque mobile: no Descending aorta: Size: normal Dissection: no Plaque mobile: no Atria: Right atrium: Size: normal Spontaneous echo contrast: No Thrombus: no Mass: No Left atrium: Size: normal (normal) Spontaneous echo contrast: No Thrombus: no Mass: No Left atrial appendage: normal Interatrial septum: normal Diastolic function and other findings: Diastolic function: normal Pericardium: normal Left pleural effusion: none Right pleural effusion: normal Pulmonary venous flow: normal Postprocedure (follow-up) DEISI exam: LV: unchanged RV: unchanged Interventricular septum: unchanged Aortic valve: unchanged Mitral valve: unchanged Pulmonic valve: unchanged Tricuspid valve: unchanged Atria: unchanged Aorta: unchanged Pericardium: unchanged Left pleural: unchanged Right pleural: unchanged Attestation Statement: By signing this report the attending anesthesiologist certifies that he or she has personally reviewed and interpreted the echocardiogram and has reviewed and or edited and agrees with the written comments contained within the report. us Fifi Keys MD ANESTHESIA ORDERABLES Final Resu lt * Arterial Line (01/01/2025 8:53 AM CDT) Narrative Fifi Keys MD - 01/01/2025 8:53 AM CDT Fifi Keys MD 01/01/2025 9:37 AM Arterial Line Patient location: pre-op holding End time: 01/01/2025 8:23 AM Indication: continuous blood pressure monitoring and blood sampling needed Ultrasound assisted: yes Staff: Supervising provider: Fifi Keys MD Placed by: AA: John Mccarthy AA Procedure prep: Prep solution: chlorhexadine/alcohol Prep: provider hat/mask and sterile gloves Skin infiltrated with lidocaine 1%: yes Arterial line: Catheter size: 20 gauge Catheter length: 1 and 3/4 inch Catheter type: wire-guided catheter Seldinger technique: yes Laterality: right Site: radial artery Line secured: Tegaderm and tape Results: good waveform and good blood return Number of attempts: 1 Assessment: Events: patient tolerated procedure well with no complications Additional comments: Placed by Елена Ulloa MISSY us Fifi Keys MD ANESTHESIA ORDERABLES Final Resu lt * eGFR (01/01/2025 3:53 AM CDT) eGFR >90 >=60 mL/min/1. 73 m2 Comment: Interpretive Data Reference Interval Normal >/= 90 mL/min/1.73m2 Mildly decreased* 60 - 89 mL/min/1.73m2 Mildly to moderately decreased 45 - 59 mL/min/1.73m2 Moderately to severely decreased 30 - 44 mL/min/1.73m2 Severely decreased 15 - 29 mL/min/1.73m2 Kidney Failure < 15 mL/min/1.73m2 *Relative to young adult level Estimated glomerular filtration rate is determined by the 2020 CKD-EPI equation recommended by the National Kid[employer] (A Unifying Approach to GFR Estimation: Recommendations of the NKF-ASK Task Force on Reassessing the Inclusion of Race in Diagnosing Kidney Disease, JASN 2020). The CKD-EPI equation should not be used for patients with unstable renal function and has not been validated in children and those over 70. Current interpretive data was last reviewed 2021. Blood 01/01/2025 3:53 AM CDT 01/01/2025 4:13 AM CDT us Gus Higgins DO LAB BLOOD ORDERABLES Pricila l Result [facility] [address] [address] [facility] [place] [address] * CBC without differential (01/01/2025 3:53 AM CDT) WBC 8.3 3.8 - 9.9 K/cumm Hgb 13.4 11.9 - 15.5 g/dL [facility] Hct 41.4 35.6 - 45.5 % [facility] Plt 250 150 - 400 K/cumm [facility] MPV 9.7 9.1 - 12.3 fL [facility] RBC 4.63 3.90 - 5.20 M/cumm [facility] MCV 89.4 81.3 - 96.4 fL [facility] MCH 28.9 27.1 - 33.3 pg [facility] MCHC 32.4 32.3 - 35.7 g/dL [facility] RDW CV 13.0 11.1 - 14.9 % [facility] RDW SD 42.4 35.7 - 48.1 fL [facility] NRBC abs 0.00 0.00 - 0.01 K/cumm [facility] Blood 01/01/2025 3:53 AM CDT 01/01/2025 4:13 AM CDT Gus Higgins DO LAB BLOOD ORDERABLES Pricila l Result Performing Organization Address City/[facility] Co de Phone Number NOEMI ARECHIGA [address] Department of Laboratories [place], [place] [id number] * Basic metabolic panel (01/01/2025 3:53 AM CDT) Sodium 137 135 - 145 mmol/L Potassium, pl 4.1 3.3 - 4.9 mmol/L [facility] Chloride 105 97 - 110 mmol/L [facility] CO2 22 22 - 32 mmol/L [facility] Anion gap 10 2 - 15 mmol/L [facility] BUN 12 6 - 25 mg/dL [facility] Creatinine 0.76 0.60 - 1.10 mg/dL [facility] Glucose 101 70 - 199 mg/dL [facility] Comment: Interpretive Data Fasting glucose >/= 126 mg/dl is diagnostic for diabetes. Fasting is defined as no caloric intake for at least 8 hours. Fasting glucose between 100 mg/dl to 125 mg/dl is diagnostic of prediabetes. In a patient with classic symptoms of hyperglycemia or hyperglycemic crisis, a random glucose >/= 200 mg/dl is diagnostic for diabetes. In the absence of unequivocal hyperglycemia, results should be confirmed by repeat testing. The classification and Diagnosis of Diabetes Diabetes Care 2021; 46: S19-S40. Current interpretive data was last revised 2022. Calcium 8.9 8.5 - 10.3 mg/dL [facility] Blood 01/01/2025 3:53 AM CDT 01/01/2025 4:13 AM CDT Gus Higgins DO LAB BLOOD ORDERABLES Pricila l Result Performing Organization Address [facility] Co de Phone Number [facility] [address] [place] [address] * Check Sample (12/31/2024 10:02 AM CDT) ABO Rh A Positive [facility] HCLL OTHER 12/31/2024 10:0 2 AM CDT 12/31/2024 10:15 AM CDT Nhi Pruett MD LAB BLOOD ORDERABLES Final Re sult Performing Organization Address [facility] Co de Phone Number [facility] [address] Department of [facility] [place] [address] CH * Type and screen (12/31/2024 9:16 AM CDT) Luis E, indirect Negative ABO Rh A Positive [facility] Blood 12/31/2024 9:16 AM CDT 12/31/2024 9:47 AM CDT [facility]ative [facility] - 12/31/2024 10:35 AM CDT Has the patient had Daratumumab or Isatuximab in the past 6 months?->Unknown Herrera Lin NP LAB BLOOD BANK TEST ORDERA BLES Final Result Performing Organization Address [facility] de Phone Number NOEMI ARECHIGA [address] Department of [facility] [place] [address] * Prepare RBC: 4 Units (12/31/2024 8:44 AM CDT) [facility] Product code [id number] [facility] Unit Number [id number] 5-P [facility] Product Blood Type APOS [facility] Dispense Status RETURNED [facility] Product code [id number] [facility] Unit Number [id number] 0-T [facility] Product Blood Type APOS [facility] Dispense Status RETURNED [facility] Product code [id number] Unit Number [id number] 8-H [facility] Product Blood Type APOS [facility] Dispense Status RETURNED [facility] Product code [id number] [facility] Unit Number [id number] 2-E [facility] Product Blood Type APOS [facility] Dispense Status RETURNED [facility] Blood 12/31/2024 8:44 AM CDT Narrative [facility] - 01/04/2025 12:21 AM CDT Specify Procedure:->CABG Are special requirements needed? (All products are leukoreduced and CMV- safe)- >No Date required:-[id number] LRRBC # of [id number] Reasons:-Hold for procedure (specify procedure)} Herrera Lin FINANCIAL ANALYSIS CONSULTANT BLOOD BANK PRODUCT ORDERAB LES Final Result Performing Organization Address [facility] Co de Phone Number NOEMI ARECHIGA [address] Department of [facility] [place] [address] * eGFR (12/31/2024 5:56 AM CDT) [facility] eGFR >90 >=60 mL/min/1. 73 m2 Comment: Interpretive Data Reference Interval Normal >/= 90 mL/min/1.73m2 Mildly decreased* 60 - 89 mL/min/1.73m2 Mildly to moderately decreased 45 - 59 mL/min/1.73m2 Moderately to severely decreased 30 - 44 mL/min/1.73m2 Severely decreased 15 - 29 mL/min/1.73m2 Kidney Failure < 15 mL/min/1.73m2 *Relative to young adult level Estimated glomerular filtration rate is determined by the 2020 CKD-EPI equation recommended by the National Kidney Foundation (A Unifying Approach to GFR Estimation: Recommendations of the NKF-ASK Task Force on Reassessing the Inclusion of Race in Diagnosing Kidney Disease, JASN 2020). The CKD-EPI equation should not be used for patients with unstable renal function and has not been validated in children and those over 70. Current interpretive data was last reviewed 2021. Blood 12/31/2024 5:56 AM CDT 12/31/2024 6:28 AM CDT us Gus Higgins DO LAB BLOOD ORDERABLES Pricila l Result [facility] [address] Department [place] [address] * CBC without differential (12/31/2024 5:56 AM CDT) WBC 7.9 3.8 - 9.9 K/cumm Hgb 13.9 11.9 - 15.5 g/dL [facility] Hct 41.8 35.6 - 45.5 % [facility] Plt 258 150 - 400 K/cumm [facility] MPV 10.0 9.1 - 12.3 fL [facility] RBC 4.70 3.90 - 5.20 M/cumm [facility] MCV 88.9 81.3 - 96.4 fL [facility] MCH 29.6 27.1 - 33.3 pg CERNER MCHC 33.3 32.3 - 35.7 g/dL [facility] RDW CV 13.1 11.1 - 14.9 % [facility]ERNER RDW SD 42.7 35.7 - 48.1 fL [facility] NRBC abs 0.00 0.00 - 0.01 K/cumm [facility]ER Blood 12/31/2024 5:56 AM CDT 12/31/2024 6:29 AM CDT Gus Jalil Wolfton LAB BLOOD ORDERABLES Pricila l Result NOEMI ARECHIGA [address] Department [place] [address] * Basic metabolic panel (12/31/2024 5:56 AM CDT) Sodium 138 135 - 145 mmol/L Potassium, pl 4.2 3.3 - 4.9 mmol/L [facility] Chloride 105 97 - 110 mmol/L [facility] CO2 23 22 - 32 mmol/L [facility] Anion gap 10 2 - 15 mmol/L [facility] BUN 11 6 - 25 mg/dL [facility] CH Creatinine 0.78 0.60 - 1.10 mg/dL [facility] Glucose 98 70 - 199 mg/dL [facility] Comment: Interpretive Data Fasting glucose >/= 126 mg/dl is diagnostic for diabetes. Fasting is defined as no caloric intake for at least 8 hours. Fasting glucose between 100 mg/dl to 125 mg/dl is diagnostic of prediabetes. In a patient with classic symptoms of hyperglycemia or hyperglycemic crisis, a random glucose >/= 200 mg/dl is diagnostic for diabetes. In the absence of unequivocal hyperglycemia, results should be confirmed by repeat testing. The classification and Diagnosis of Diabetes Diabetes Care 202; 46: S19-S40. Current interpretive data was last revised 2022. Calcium 9.0 8.5 - 10.3 mg/dL [facility] Blood 12/31/2024 5:56 AM CDT 12/31/2024 6:28 AM CDT Gus Higgins DO LAB BLOOD ORDERABLES Pricila l Result NOEMI ARECHIGA [address] Department [place] [address] * (ABNORMAL) Urinalysis reflex to microscopic and culture Urine, clean voided (12/30/2024 6:44 PM CDT) Color, ur Straw Yellow Clarity, ur Clear Clear [facility] Specific gravity, ur 1.005 1.003 - 1.030 [facility] pH, urine 7.0 [facility] Comment: Interpretive Data U rine pH is affected by diet, medications, systemic acid-base disturbances, and renal tubular function. pH may affect urinary stone formation. For example, urine pH below 6.0 may help reduce the tendency for calcium phosphate stones and pH greater than 6.0 may reduce the tendency for uric acid stone formation. Source: [facility] Current Interpretive Data was last revised on 2017 Protein, ur ql Negative Negative [facility] Glucose, ur ql Negative Negative [facility] Ketones, ur Negative Negative [facility] Bilirubin, ur Negative Negative [facility] Blood, ur 1+(A) Negative [facility] Urobilinogen, ur <2.0 <2.0 mg/dL [facility] Nitrite, ur Negative Negative [facility] Leukocyte esterase, ur 1+(A) Negative [facility] UA reflex comment Reflex to microscopic UA will be performed. [facility]ER Urine, clean voided 12/30/2024 6:44 PM CDT 12/30/2024 6:49 PM CDT Herrera Lin NP LAB MICROBIOLOGY - GENERAL ORDERABLES Final Result NOEMI ARECHIGA [address] Department [place] [address] * hCG, urine, qualitative (12/30/2024 6:44 PM CDT) HCG, ur Negative Negative Urine 12/30/2024 6:44 PM CDT 12/30/2024 6:50 PM CDT Herrera Lin NP LAB URINE ORDERABLES Final Result NOEMI ARECHIGA [address] Department [place] [address] * (ABNORMAL) Urinalysis, microscopic only (12/30/2024 6:44 PM CDT) Pathologist [facility] WBC, ur 0-5 0 - 5 /HPF RBC, ur 0-2 0 - 2 /HPF [facility] Epithelial cells, squamous, ur 1-5 0 - 5 /HPF [facility] Bacteria, ur Trace(A) [facility] Mucous, ur Present(A) [facility] Culture Reflex Comment Reflex conditions for urine culture (WBC >10) not met. [facility] Urine, clean voided 12/30/2024 6:44 PM CDT 12/30/2024 6:49 PM CDT Herrera Lin FINANCIAL ANALYSIS CONSULTANT LAB URINE ORDERABLES Final Result Performing Organization Address [facility]/ZIP Co de Phone Number NOEMI ARECHIGA [address] [employer] [place] [address] * eGFR (12/30/2024 3:25 AM CDT) eGFR >90 >=60 mL/min/1. 73 m2 Comment: Interpretive Data Reference Interval Normal >/= 90 mL/min/1.73m2 Mildly decreased* 60 - 89 mL/min/1.73m2 Mildly to moderately decreased 45 - 59 mL/min/1.73m2 Moderately to severely decreased 30 - 44 mL/min/1.73m2 Severely decreased 15 - 29 mL/min/1.73m2 Kidney Failure < 15 mL/min/1.73m2 *Relative to young adult level Estimated glomerular filtration rate is determined by the 2020 CKD-EPI equation recommended by the National Kidney Foundation (A Unifying Approach to GFR Estimation: Recommendations of the NKF-ASK Task Force on Reassessing the Inclusion of Race in Diagnosing Kidney Disease, JASN 2020). The CKD-EPI equation should not be used for patients with unstable renal function and has not been validated in children and those over 70. Current interpretive data was last reviewed 2021. Blood 12/30/2024 3:25 AM CDT 12/30/2024 4:13 AM CDT Gus Higgins DO LAB BLOOD ORDERABLES Pricila l Result Performing Organization Address City/[facility]/ZIP Co de Phone Number NOEMI ARECHIGA [address] Department [place] [address] * CBC without differential (12/30/2024 3:25 AM CDT) [facility] WBC 7.9 3.8 - 9.9 K/cumm Hgb 13.1 11.9 - 15.5 g/dL [facility] Hct 39.9 35.6 - 45.5 % [facility] Plt 240 150 - 400 K/cumm [facility] MPV 10.1 9.1 - 12.3 fL [facility] RBC 4.42 3.90 - 5.20 M/cumm [facility] MCV 90.3 81.3 - 96.4 fL [facility] MCH 29.6 27.1 - 33.3 pg [facility] MCHC 32.8 32.3 - 35.7 g/dL [facility] RDW CV 12.9 11.1 - 14.9 % [facility] RDW SD 42.6 35.7 - 48.1 fL [facility] NRBC abs 0.00 0.00 - 0.01 K/cumm [facility] Blood 12/30/2024 3:25 AM CDT 12/30/2024 4:13 AM CDT Gus Higgins DO LAB BLOOD ORDERABLES Pricila l Result [facility] [address] [address] [facility] [place] [address] * Hemoglobin A1c (12/30/2024 3:25 AM CDT) [facility] Hgb A1C 5.5 4.0 - 5.6 % Estimated Average Glucose 111 mg/dL [facility] Comment: The ADA recommends reporting an estimated Average Glucose (eAG) with all Hemoglobin A1c results using the equation derived from a study of 507 normal and diabetic adults. Minority populations were underrepresented and children were not included. (Diabetes Care 31:4439-2818, 2008). The eAG is not equivalent to a fasting glucose. Blood 12/30/2024 3:25 AM CDT 12/30/2024 4:13 AM CDT us Herrera Lin FINANCIAL ANALYSIS CONSULTANT LAB BLOOD ORDERABLES Final Result NOEMI ARECHIGA [address] Department [place] [address] * Basic metabolic panel (12/30/2024 3:25 AM CDT) Sodium 140 135 - 145 mmol/L Potassium, pl 3.7 3.3 - 4.9 mmol/L [facility] Chloride 106 97 - 110 mmol/L [facility] CO2 22 22 - 32 mmol/L [facility] Anion gap 12 2 - 15 mmol/L [facility] BUN 11 6 - 25 mg/dL [facility] Creatinine 0.76 0.60 - 1.10 mg/dL [facility] Glucose 98 70 - 199 mg/dL [facility] Comment: Interpretive Data Fasting glucose >/= 126 mg/dl is diagnostic for diabetes. Fasting is defined as no caloric intake for at least 8 hours. Fasting glucose between 100 mg/dl to 125 mg/dl is diagnostic of prediabetes. In a patient with classic symptoms of hyperglycemia or hyperglycemic crisis, a random glucose >/= 200 mg/dl is diagnostic for diabetes. In the absence of unequivocal hyperglycemia, results should be confirmed by repeat testing. The classification and Diagnosis of Diabetes Diabetes Care 202; 46: S19-S40. Current interpretive data was last revised 2022. Calcium 8.9 8.5 - 10.3 mg/dL [facility] Blood 12/30/2024 3:25 AM CDT 12/30/2024 4:13 AM CDT us Gus Higgins DO LAB BLOOD ORDERABLES Pricila l Result NOEMI ARECHIGA [address] Department [place] [address] * TRANSTHORACIC ECHO (TTE) COMPLETE W DOPPLER/CF WO CONTRAST (12/29/2024 12:45 PM CDT) Anatomical Region Laterality Modality Ultrasound 12/29/2024 11:1 5 AM CDT Narrative 12/29/2024 2:45 [place] [address] Echocardiogram Report Patient Name: PREM RAO L : 1980 Study Date: 12/29/2024 11:15:21 AM Gender: F Tech: Location: [address] Provider: HERRERA LIN Height(Cm): 175 BSA: 2.38 Weight(Kg): 117 Heart Rate: 68 BP: 162/82 Quality: Good Order Provider: HERRERA LIN PROCEDURES: Echocardiographic Report: Transthoracic echocardiogram with complete 2D, M-Mode, and color Doppler examination. INDICATIONS: CABG. MEASUREMENTS: 2D/MM Value Range Doppler Value Range EF Teich 2D 55.1 percent [ 54.0 - 74.0 ] KELLY Vmax 2.59 cm2 EF Mod BP 60 % [ 54 - 74 ] AV Mean PG 4 mmHg LVIDd 2D 4.75 cm [ 3.80 - 5.20 ] AV Peak Miko 1.53 m/s [ 1.00 - 1.70 ] LVIDs 2D 3.39 cm [ 2.20 - 3.50 ] AV VTI 29.70 cm LVPWd 2D 1.42 cm [ 0.60 - 0.90 ] LVOT Diam 2.04 cm IVSd 2D 1.43 cm [ 0.60 - 0.90 ] LVOT Peak Miko 1.21 m/s [ 0.70 - 1.10 ] LA Dimension MM 3.76 cm [ 2.70 - 3.80 ] LVOT VTI 25.44 cm AoR Diam MM 2.99 cm [ 2.70 - 3.70 ] MV E Peak Miko 0.73 m/s [ 0.60 - 1.30 ] LA Volume Index 28.27 cc/m2 [ 16.00 - 34.00 ] MV A Peak Miko 0.77 m/s [ 1.00 - 1.20 ] ACS MM 2.25 cm MV Mean PG 1 mmHg MV PHT 66 msec [ 20 - 100 ] MVA PHT 3.33 cm2 MV Decel Time 249 msec [ 104 - 258 ] PV Peak Miko 1.02 m/s [ 0.40 - 0.80 ] TR Peak Miko 2.17 m/s [ 1.00 - 2.80 ] TR Peak PG 19 mmHg E` 0.09 m/s E/E` 7.00 2D/MM Value Range Doppler Value Range - FINDINGS: Atrial Septum: Normal atrial septum. Left Ventricle: Normal left ventricular size. Normal left ventricular systolic function with no focal wall motion abnormalities. Mild concentric left ventricular hypertrophy. Impaired diastolic relaxation Grade I. Ejection fraction is measured at 60 %. Left Atrium: The left atrium is normal in size. Right Ventricle: Normal right ventricular size. Normal right ventricular systolic function. Right Atrium: The right atrium is normal in size. Aortic Valve: Trileaflet aortic valve. Aortic cusps appear mildly sclerotic. No evidence of hemodynamically significant aortic stenosis by Doppler. Mitral Valve: Mitral valve leaflets appear mildly thickened. Trivial regurgitation of the mitral valve. Pulmonic Valve: Normal structure of the pulmonic valve. Trivial regurgitation in the pulmonic valve. Tricuspid Valve: Normal structure of the tricuspid valve. Normal right ventricular systolic pressure. Pericardium: Normal pericardium with no significant pericardial effusion. Aorta: Normal aortic root. Ascending aorta is normal. Aortic arch is normal. Descending aorta is normal. No aortic root dilation. IVC: Normal size and normal respiratory collapse consistent with normal right atrial pressure (<5 mmHg). Pulmonary Artery: Pulmonary artery not well visualized. CONCLUSIONS: Technically difficult study with suboptimal visualization. Valves in general are poorly visualized. Normal left ventricular size. Normal left ventricular systolic function with no focal wall motion abnormalities. Mild concentric left ventricular hypertrophy. Impaired diastolic relaxation Grade I. Ejection fraction is measured at 60 %. Normal right ventricular size. Normal right ventricular systolic function. Mitral valve leaflets appear mildly thickened. Trivial regurgitation of the mitral valve. Trileaflet aortic valve. Aortic cusps appear mildly sclerotic. No evidence of hemodynamically significant aortic stenosis by Doppler. Normal structure of the tricuspid valve. Normal right ventricular systolic pressure. Normal pericardium with no significant pericardial effusion. Electronically Signed By: Brittani Lomeli MD 12/29/2024 2:44:43 PM CDT Procedure Note Brittani Lomeli MD - 12/29/2024 [place] [address] Echocardiogram Report Patient Name: PREM RAO L : 1980 Study Date: 12/29/2024 11:15:21 AM Gender: F Tech: Location: [address] Provider: HERRERA LIN Height(Cm): 175 BSA: 2.38 Weight(Kg): 117 Heart Rate: 68 BP: 162/82 Quality: Good Order Provider: HERRERA LIN PROCEDURES: Echocardiographic Report: Transthoracic echocardiogram with complete 2D, M-Mode, and color Dopplerexamination. INDICATIONS: CABG. MEASUREMENTS: 2D/MM Value Range DopplerValue Range EF Teich 2D 55.1 percent [ 54.0 - 74.0 ] KELLY Vmax2.59 cm2 EF Mod BP 60 % [ 54 - 74 ] AV Mean PG 4mmHg LVIDd 2D 4.75 cm [ 3.80 - 5.20 ] AV Peak Vel1.53 m/s [ 1.00 - 1.70 ] LVIDs 2D 3.39 cm [ 2.20 - 3.50 ] AV VTI29.70 cm LVPWd 2D 1.42 cm [ 0.60 - 0.90 ] LVOT Diam2.04 cm IVSd 2D 1.43 cm [ 0.60 - 0.90 ] LVOT Peak Vel1.21 m/s [ 0.70 - 1.10 ] LA Dimension MM 3.76 cm [ 2.70 - 3.80 ] LVOT VTI25.44 cm AoR Diam MM 2.99 cm [ 2.70 - 3.70 ] MV E Peak Vel0.73 m/s [ 0.60 - 1.30 ] LA Volume Index 28.27 cc/m2 [ 16.00 - 34.00 ] MV A Peak Vel0.77 m/s [ 1.00 - 1.20 ] ACS MM 2.25 cm MV Mean PG 1mmHg MV PHT 66 msec [ 20 - 100 ] MVA PHT 3.33 cm2 MV Decel Time 249 msec [ 104 - 258 ] PV Peak Miko 1.02 m/s [ 0.40 - 0.80 ] TR Peak Miko 2.17 m/s [ 1.00 - 2.80 ] TR Peak PG 19 mmHg E` 0.09 m/s E/E` 7.00 2D/MM Value Range DopplerValue Range - FINDINGS: Atrial Septum: Normal atrial septum. Left Ventricle: Normal left ventricular size. Normal left ventricular systolic functionwith no focal wall motion abnormalities. Mild concentric left ventricular hypertrophy.Impaired diastolic relaxation Grade I. Ejection fraction is measured at 60 %. Left Atrium: The left atrium is normal in size. Right Ventricle: Normal right ventricular size. Normal right ventricular systolicfunction. Right Atrium: The right atrium is normal in size. Aortic Valve: Trileaflet aortic valve. Aortic cusps appear mildly sclerotic. No evidenceof hemodynamically significant aortic stenosis by Doppler. Mitral Valve: Mitral valve leaflets appear mildly thickened. Trivial regurgitation ofthe mitral valve. Pulmonic Valve: Normal structure of the pulmonic valve. Trivial regurgitation in thepulmonic valve. Tricuspid Valve: Normal structure of the tricuspid valve. Normal right ventricular systolicpressure. Pericardium: Normal pericardium with no significant pericardial effusion. Aorta: Normal aortic root. Ascending aorta is normal. Aortic arch is normal.Descending aorta is normal. No aortic root dilation. IVC: Normal size and normal respiratory collapse consistent with normal rightatrial pressure (<5 mmHg). Pulmonary Artery: Pulmonary artery not well visualized. CONCLUSIONS: Technically difficult study with suboptimal visualization. Valves ingeneral are poorly visualized. Normal left ventricular size. Normal left ventricular systolic functionwith no focal wall motion abnormalities. Mild concentric left ventricular hypertrophy.Impaired diastolic relaxation Grade I. Ejection fraction is measured at 60 %. Normal right ventricular size. Normal right ventricular systolicfunction. Mitral valve leaflets appear mildly thickened. Trivial regurgitation ofthe mitral valve. Trileaflet aortic valve. Aortic cusps appear mildly sclerotic. No evidenceof hemodynamically significant aortic stenosis by Doppler. Normal structure of the tricuspid valve. Normal right ventricular systolicpressure. Normal pericardium with no significant pericardial effusion. Electronically Signed By: Brittani Lomeli MD 12/29/2024 2:44:43 PM CDT us Herrera Lin NP CV ECHO PROCEDURES Final R esult * eGFR (12/29/2024 4:11 AM CDT) eGFR >90 >=60 mL/min/1. 73 m2 Comment: Interpretive Data Reference Interval Normal >/= 90 mL/min/1.73m2 Mildly decreased* 60 - 89 mL/min/1.73m2 Mildly to moderately decreased 45 - 59 mL/min/1.73m2 Moderately to severely decreased 30 - 44 mL/min/1.73m2 Severely decreased 15 - 29 mL/min/1.73m2 Kidney Failure < 15 mL/min/1.73m2 *Relative to young adult level Estimated glomerular filtration rate is determined by the 2020 CKD-EPI equation recommended by the National Kidney Foundation (A Unifying Approach to GFR Estimation: Recommendations of the NKF-ASK Task Force on Reassessing the Inclusion of Race in Diagnosing Kidney Disease, JASN 202). The CKD-EPI equation should not be used for patients with unstable renal function and has not been validated in children and those over 70. Current interpretive data was last reviewed 2021. Blood 12/29/2024 4:11 AM CDT 12/29/2024 5:17 AM CDT us Gus Higgins DO LAB BLOOD ORDERABLES Pricila mayen Result NOEMI [address] [address] Department [place] [address] * CBC without differential (12/29/2024 4:11 AM CDT) Pathologist [facility] WBC 7.6 3.8 - 9.9 K/cumm Hgb 12.9 11.9 - 15.5 g/dL [facility] Hct 39.1 35.6 - 45.5 % [facility] Plt 227 150 - 400 K/cumm [facility] MPV 10.0 9.1 - 12.3 fL [facility] RBC 4.32 3.90 - 5.20 M/cumm [facility] MCV 90.5 81.3 - 96.4 fL [facility] MCH 29.9 27.1 - 33.3 pg [facility] MCHC 33.0 32.3 - 35.7 g/dL [facility] RDW CV 13.0 11.1 - 14.9 % [facility] CH RDW SD 42.8 35.7 - 48.1 fL [facility] NRBC abs 0.00 0.00 - 0.01 K/cumm [facility] Blood 12/29/2024 4:11 AM CDT 12/29/2024 5:15 AM CDT Gus Higgins DO LAB BLOOD ORDERABLES Pricila l Result [facility] [address] [address] Department of Laboratories [place], [place] [id number] * (ABNORMAL) Basic metabolic panel (12/29/2024 4:11 AM CDT) Sodium 141 135 - 145 mmol/L Potassium, pl 4.0 3.3 - 4.9 mmol/L [facility] Chloride 108 97 - 110 mmol/L [facility] CO2 21(L) 22 - 32 mmol/L [facility] Anion gap 12 2 - 15 mmol/L [facility] BUN 9 6 - 25 mg/dL [facility] Creatinine 0.77 0.60 - 1.10 mg/dL [facility] Glucose 94 70 - 199 mg/dL [facility] Comment: Interpretive Data Fasting glucose >/= 126 mg/dl is diagnostic for diabetes. Fasting is defined as no caloric intake for at least 8 hours. Fasting glucose between 100 mg/dl to 125 mg/dl is diagnostic of prediabetes. In a patient with classic symptoms of hyperglycemia or hyperglycemic crisis, a random glucose >/= 200 mg/dl is diagnostic for diabetes. In the absence of unequivocal hyperglycemia, results should be confirmed by repeat testing. The classification and Diagnosis of Diabetes Diabetes Care 2021; 46: S19-S40. Current interpretive data was last revised 2022. Calcium 8.8 8.5 - 10.3 mg/dL [facility] Blood 12/29/2024 4:11 AM CDT 12/29/2024 5:17 AM CDT Gus Higgins LAB BLOOD ORDERABLES Pricila l Result Performing Organization Address City/[facility]/ZIP Co de Phone Number [facility] [address] [facility] [place], [place] [id number] * Troponin T high-sensitivity 6-hour (12/28/2024 12:42 AM CDT) Trop T hs 13 <=14 ng/L Comment: Interpretive Data For further hscTnT resources including the diagnostic algorithm and an aid in interpretation, copy and paste this link: https://nrl.testcatalog.org/show/hsTrop Current Interpretive Data last revised 2020. Trop T hs delta 1 ng/L [facility] Trop T hs interp Insignificant [facility] Blood 12/28/2024 12:4 2 AM CDT 12/28/2024 12:49 AM CDT Mabel Rodriguez LAB BLOOD ORDERABLES Final Result Performing Organization Address City/[facility]/ZIP Co de Phone Number NOEMI [phone] [facility] [place] [address] * Phosphorus (12/28/2024 12:42 AM CDT) Phosphorus, pl 3.1 2.3 - 4.5 mg/dL Blood 12/28/2024 12:4 2 AM CDT 12/28/2024 4:25 PM CDT Gus Higgins DO LAB BLOOD ORDERABLES Pricila l Result Performing Organization Address City/[facility]/ZIP Co de Phone Number NOEMI ARECHIGA [phone] Department [facility] [place] [address] * Magnesium (12/28/2024 12:42 AM CDT) Magnesium 2.2 1.4 - 2.5 mg/dL Blood 12/28/2024 12:4 2 AM CDT 12/28/2024 4:25 PM CDT Gus Higgins DO LAB BLOOD ORDERABLES Pricila l Result Performing Organization Address [facility] Co de Phone Number NOEMI ARECHIGA [phone] Department [facility] [place] [address] * Troponin T high-sensitivity 4-hour (12/27/2024 10:25 PM CDT) Trop T hs 12 <=14 ng/L Comment: Interpretive Data For further hscTnT resources including the diagnostic algorithm and an aid in interpretation, copy and paste this link: https://nrl.testcatWebTuner.org/show/hsTrop Current Interpretive Data last revised 2020. Trop T hs delta 0 ng/L [facility] Trop T hs interp Insignificant [facility] Blood 12/27/2024 10:2 5 PM CDT 12/27/2024 10:29 PM CDT Mabel Rodriguez FINANCIAL ANALYSIS CONSULTANT LAB BLOOD ORDERABLES Final Result Performing Organization Address City/[facility]/ZIP Co de Phone Number NOEMI ARECHIGA [phone] Department [facility] [place] [address] * Troponin T high-sensitivity 2-hour (12/27/2024 8:37 PM CDT) Trop T hs 13 <=14 ng/L Comment: Interpretive Data For further hscTnT resources including the diagnostic algorithm and an aid in interpretation, copy and paste this link: https://nrl.testcatalog.org/show/hsTrop Current Interpretive Data last revised 2020. Trop T hs delta 1 ng/L [facility] Trop T hs interp Insignificant [facility] Blood 12/27/2024 8:37 PM CDT 12/27/2024 8:44 PM CDT Mabel Hyltonrama FINANCIAL ANALYSIS CONSULTANT LAB BLOOD ORDERABLES Final Result Performing Organization Address [facility] Co de Phone Number [facility] [address] Department [facility] [place] [address] * Troponin T high-sensitivity series (baseline, 2hr, 4hr, 6hr) (12/27/2024 6:48 PM CDT) Pathologist [facility] Trop T hs 12 <=14 ng/L Comment: Interpretive Data For further hscTnT resources including the diagnostic algorithm and an aid in interpretation, copy and paste this link: https://nrl.testcatalog.org/show/hsTrop Current Interpretive Data last revised 2020. Blood 12/27/2024 6:48 PM CDT 12/27/2024 6:53 PM CDT Mabel Hyltonrama FINANCIAL ANALYSIS CONSULTANT LAB BLOOD ORDERABLES Final Result Performing Organization Address [facility] Co de Phone Number [facility] [phone] [facility] [place] [address] * eGFR (12/27/2024 6:48 PM CDT) eGFR >90 >=60 mL/min/1. 73 m2 Comment: Interpretive Data Reference Interval Normal >/= 90 mL/min/1.73m2 Mildly decreased* 60 - 89 mL/min/1.73m2 Mildly to moderately decreased 45 - 59 mL/min/1.73m2 Moderately to severely decreased 30 - 44 mL/min/1.73m2 Severely decreased 15 - 29 mL/min/1.73m2 Kidney Failure < 15 mL/min/1.73m2 *Relative to young adult level Estimated glomerular filtration rate is determined by the 2020 CKD-EPI equation recommended by the National Kidney Foundation (A Unifying Approach to GFR Estimation: Recommendations of the NKF-ASK Task Force on Reassessing the Inclusion of Race in Diagnosing Kidney Disease, JASN 2020). The CKD-EPI equation should not be used for patients with unstable renal function and has not been validated in children and those over 70. Current interpretive data was last reviewed 2021. Blood 12/27/2024 6:48 PM CDT 12/27/2024 6:54 PM CDT us Mabel Rodriguez NP LAB BLOOD ORDERABLES Final Result [facility] [address] Department [place] [address] * Differential, auto (12/27/2024 6:48 PM CDT) Neutrophil abs 6.4 1.5 - 6.5 K/cumm Imm gran abs 0.0 0.0 - 0.1 K/cumm [facility] Lymphocyte abs 1.7 0.8 - 3.3 K/cumm [facility] Monocyte abs 0.7 0.2 - 0.8 K/cumm [facility] Eosinophil abs 0.1 0.0 - 0.5 K/cumm [facility] Basophil abs 0.0 0.0 - 0.1 K/cumm [facility] Neutrophil pct 70.9 % [facility] Comment: Interpretive Data Percent cell count reference ranges are not reported, since discordance with absolute values may lead to misinterpretation of CBC data. Current Interpretive Data was last revised on 2018. Imm gran pct 0.4 % [facility] Comment: Interpretive Data Percent cell count reference ranges are not reported, since discordance with absolute values may lead to misinterpretation of CBC data. Current Interpretive Data was last revised on 2018. Lymphocyte pct 19.3 % [facility] Comment: Interpretive Data Percent cell count reference ranges are not reported, since discordance with absolute values may lead to misinterpretation of CBC data. Current Interpretive Data was last revised on 2018. Monocyte pct 7.4 % [facility] Comment: Interpretive Data Percent cell count reference ranges are not reported, since discordance with absolute values may lead to misinterpretation of CBC data. Current Interpretive Data was last revised on 2018. Eosinophil pct 1.6 % [facility] Comment: Interpretive Data Percent cell count reference ranges are not reported, since discordance with absolute values may lead to misinterpretation of CBC data. Current Interpretive Data was last revised on 2018. Basophil pct 0.4 % [facility] Comment: Interpretive Data Percent cell count reference ranges are not reported, since discordance with absolute values may lead to misinterpretation of CBC data. Current Interpretive Data was last revised on 2018. Blood 12/27/2024 6:48 PM CDT 12/27/2024 6:53 PM CDT Mabel Rodriguez NP LAB BLOOD ORDERABLES Final Result [facility] [address] Department [place] [address] * CBC with auto differential (12/27/2024 6:48 PM CDT) WBC 9.0 3.8 - 9.9 K/cumm Hgb 12.4 11.9 - 15.5 g/dL [facility] Hct 37.6 35.6 - 45.5 % [facility] Plt 211 150 - 400 K/cumm [facility] MPV 9.8 9.1 - 12.3 fL [facility] RBC 4.20 3.90 - 5.20 M/cumm [facility] MCV 89.5 81.3 - 96.4 fL [facility] MCH 29.5 27.1 - 33.3 pg [facility] MCHC 33.0 32.3 - 35.7 g/dL [facility] RDW CV 13.1 11.1 - 14.9 % [facility] RDW SD 42.6 35.7 - 48.1 fL [facility] NRBC abs 0.00 0.00 - 0.01 K/cumm [facility] Blood 12/27/2024 6:48 PM CDT 12/27/2024 6:53 PM CDT Mabel Rodriguez NP LAB BLOOD ORDERABLES Final Result [facility] [address] Department [place] [address] * (ABNORMAL) Comprehensive metabolic panel (12/27/2024 6:48 PM CDT) Sodium 138 135 - 145 mmol/L Potassium, pl 4.0 3.3 - 4.9 mmol/L [facility] Chloride 104 97 - 110 mmol/L [facility] CO2 21(L) 22 - 32 mmol/L [facility] Anion gap 13 2 - 15 mmol/L [facility] BUN 9 6 - 25 mg/dL [facility] Creatinine 0.79 0.60 - 1.10 mg/dL [facility] Glucose 102 70 - 199 mg/dL [facility] Comment: Interpretive Data Fasting glucose >/= 126 mg/dl is diagnostic for diabetes. Fasting is defined as no caloric intake for at least 8 hours. Fasting glucose between 100 mg/dl to 125 mg/dl is diagnostic of prediabetes. In a patient with classic symptoms of hyperglycemia or hyperglycemic crisis, a random glucose >/= 200 mg/dl is diagnostic for diabetes. In the absence of unequivocal hyperglycemia, results should be confirmed by repeat testing. The classification and Diagnosis of Diabetes Diabetes Care 202; 46: S19-S40. Current interpretive data was last revised 2022. Calcium 8.9 8.5 - 10.3 mg/dL [facility] Bilirubin, total 0.4 0.1 - 1.2 mg/dL [facility] Protein, pl 6.5 6.5 - 8.5 g/dL [facility] Albumin 3.7 3.5 - 5.0 g/dL [facility] Alk phos 52 40 - 130 Units/L [facility] ALT 9 7 - 45 Units/L [facility] AST 15 10 - 45 Units/L [facility] Blood 12/27/2024 6:48 PM CDT 12/27/2024 6:53 PM CDT Mabel Rodriguez NP LAB BLOOD ORDERABLES Final Result [facility] ARECHIGA [address] Department [place] [address] * Cardiology Document Scan (12/27/2024 1:09 PM CDT) Anatomical Region Laterality Modality Other us Roger Turcios MD [facility] PRO CEDURES Final Result * Cardiology Document Scan (12/27/2024) Anatomical Region Laterality Modality Other us Roger Turcios MD [facility] PRO CEDURES Final Result * Cardiology Document Scan (12/26/2024 1:06 PM CDT) Anatomical Region Laterality Modality Other Roger Turcios MD [facility] PRO CEDURES Final Result * Cardiology Document Scan (12/26/2024 1:02 PM CDT) Anatomical Region Laterality Modality Other Roger Turcios MD [facility] PRO CEDURES Final Result * Diagnostic Mammogram Bilateral W Leandro (12/20/2022 [...] by Sidney Martin M.D., MD: Report ID: [id number] Reading Location: [facility] 12/20/2022 11:41 AM CDT EXAM DESCRIPTION: US [...] Recently Relevant to Health Maintenance [place] [facility] [place] [id number] [employer] [facility] Advance Directives For more information, please contact: [phone] * Full Code (Latest Code Status on File) Date Activated Date Inactivated Comments 12/27/2024 6:08 PM 01/06/2025 10:43 PM Care Teams Machine Packaging Technician Relationship Specialty Start Date End Date Aleida Hu PA PCP - General Physician Enterprise Solutions Architect 02/21/21 Didier Quispe MD [id number] [place] [address] Surgeon Cardiothoracic Surgery 01/06/25 Angelique Durant NP [address] [address] [address] [address] Nurse Practitioner Cardiovascular Disease 01/06/25
--- OUTSIDE RECORDS SUMMARY | 2025-02-17 16:08 | XMS_ITS ---
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 Stress is when someone feels tense, nervous, anxious, or can\t sleep at night because their mind is troubled Somewhat In the past year have you sp ent more than 2 nights in a row in a retirement, fci, nursing home center, or juvenile correctional facility? No Do [...] years Encounters Encounter Location Date Provider Diagnosis [address] [place] [address] 02/17/2025 Cynthia Baker Plan Of Treatment No Information Progress Notes * Mina KAUROB:1980 (44 yo F)Acc No.[id number]:02/17/2025 Patient: Jess GERONIMOKathleen Prem :1980 A ge:44 Y S ex:Female Address:[address] [place] [id number] Subjective: * Chief Complaints: * Roberto ANDERSON Assess * Medical History: * Surgical History: * Hospitalization/Major Diagno stic Procedure: * Social History: S ocial Determinants: Roberto Mercado ate Completed/Updated: 0 02/16/2025 W hat is your current housing situation? [...] was really needed? Check all that apply U tilities H as lack of transportation kept you from medical appointments, meetings, work or from getting things needed for daily living? N o H ow often do you see or talk to people that you care about and feel close to? (For example: talking to friends on the phone, visiting friends or family, going to confucianism or club meetings) M ore than 5 times a week H ow stressed are you? Stress is when someone feels tense, nervous, anxious, or can\t sleep at night because their mind is troubled S omewhat I n the past year have you spent more than 2 nights in a row in a retirement, fci, nursing home center, or juvenile correctional facility? N o D o you feel physically and emotionally safe where you currently live? Y es I n the past year, have you been afraid of your partner or ex-partner? N o P RAPARE Score: 4 T obacco Use: D ont [...] user e -cigarette,Heavy cigarette smoker (20-39 cigs/day) * Medications: Objective: * Vitals: * Physical Examination: Assessment: Plan: * Treatment: * Procedure Codes: * true * Date: Generated for Chris mendenhall/Kirstin/Alcides on: 0 02/17/2025 04:07 PM CDT
--- OUTSIDE RECORDS SUMMARY | 2025-02-17 16:08 | XMS_ITS | Data Portability ---
Author Organization [facility] , [facility] Address [address] [place] [address] Assessment No assessment recorded. Plan of Treatment Reminders Order Date Submit Date Provider Last Modified By Organization Details Last Modified Time Details Appointments None recorded. Lab bacterial vaginosis + vaginitis panel, vaginal 2022 023 [employer] [address] [place] [address], [address], 3 13:41:18 prolactin , serum 2022 023 [facility], [address] [place], [address], 3 11:02:57 unlisted lab - STD screening ([facility]) 2022 023 [employer] [address] [place], [address], 3 12:49:01 testoster one, free + total, serum 2022 023 [facility], [address] [place], [address], 3 11:02:56 pap, LB 2022 023 [facility], [address] [place], [address], 3 11:02:56 HPV E6+E7 mRNA, qualitati ve PCR, cervix 2022 023 [employer] [address] [place], [address], 3 15:56:56 HIV 1+2 Ab + HIV1 p24 Ag, quantitat jesu immunoass ay, serum 2020 [facility], [address], [place], [address], 1 16:40:54 HBsAg (hepatiti s B surface Ag), serum 2020 [facility], [address] [place], [address], 1 16:40:54 hepatitis C virus Ab, serum 2020 [facility], [address] [place], [address], 1 16:40:54 RPR (rapid plasma reagin), serum 2020 [facility], [address] [place], [address], 1 16:40:54 hsv (1+2) igg, serum 2020 [facility], [address] [place], [address], 1 16:40:55 pap, LB 2020 [facility], [address] [place], [address], 1 10:28:32 STI panel 2020 [facility], [address] [place], [address], 1 09:37:35 Referral gastroent erologist referral 2022 023 [facility] Kasie Prather MD, [address], [place], [address], 3 14:20:33 mental health counselor referral 2020 022 [facility], [address], [place], [address], 2 16:53:58 Procedures None recorded. Surgeries None recorded. Imaging MAMMO, screening , digital, bilateral [address] [facility], [address], [place], [address], 3 13:31:05 MAMMO, diagnosti c, tomosynth esis, bilateral 2020 021 [facility] Special Procedures Only, [address] , [address], [place], [address], 1 14:41:45 Medication Orders Xanax 0.25 mg tablet 2022 023 [facility] [address], [address], [place], [address], 3 14:28:26 Patient TargetsNo targets recorded. Patient Instructions Encounter Date Encounter Id Patient Instructions Last Modified By Organization Details Last Modified Time 08/25/2021 [id number] learning about dietary guidelines shayan Not available 08/26/2021 13:18:28 eating healthy foods: care instructions shayan Not available 08/26/2021 13:18:28 abuse/domestic violence education frankinski Not available 08/26/2021 13:18:28 weight management education frankinski Not available 08/26/2021 13:18:28 smoking cessation counseling shayan Not available 08/28/2021 16:26:58 learning about healthy weight shayan Not available 08/26/2021 13:18:28 body mass index: care instructions jshopinski Not available 08/26/2021 13:18:28 11/01/2022 [id number] Patient Health Questionnaire-9* kbritsch Not available 12/04/2022 14:17:46 eating healthy foods: care instructions shayan Not available 11/01/2022 17:52:08 general health care education shayan Not available 11/01/2022 17:52:08 weight management education shayan Not available 11/01/2022 17:52:08 mammogram: about this test shayan Not available 11/01/2022 17:52:08 Reason for Referral Mental Health Counselor Refe rral for Gynecologic examination Referring Physician: Monique Bridges, PUBLIC HE[employer] AIDES TEACHER, Encounter Date: 08/25/2021 Pierogi Maker Referral for Hemorrhoids Referring Physician: Monique Bridges PUBLIC HEALTH AIDES TEACHER, Encounter Date: 11/01/2022 Results Created Date Observation Date Name Description Value Unit Range Abnormal Flag Note LastModifiedBy Organization Detail LastModifiedTime 11/07/1911/07/2022 TESTO STERO NE, FREE, BIOAV AILAB LE AND TOTAL , MS albumin 4.1 g/dL 3.6-5. 1 Not Available [address], [address], 11/07/2022 11:02:56 11/07/19 23 11/07/2022 TESTO STERO NE, FREE, BIOAV AILAB LE AND TOTAL , MS sex hormone binding globulin 23.6 nmol/ L 17-124 Not Available [address], [address], 11/07/2022 11:02:56 11/07/19 23 11/07/2022 TESTO STERO NE, FREE, BIOAV AILAB LE AND TOTAL , MS testosterone , free 8.0 pg/mL 0.2-5. 0 high Not Available [facility] [address], [address], 11/07/2022 11:02:56 11/07/19 23 11/07/2022 TESTO STERO NE, FREE, BIOAV AILAB LE AND TOTAL , MS testosterone ,bioavailabl e 15.1 NG/dL 0.5-8. 5 high Not Available [address], [address], 11/07/2022 11:02:56 11/07/19 23 11/07/2022 TESTO STERO NE, FREE, BIOAV AILAB LE AND TOTAL , MS testosterone , total, MS 52 NG/dL 2-45 high For addit ional infor roger bates e refer to https ://ed ucati on.qu estBTC [place]. com/f aq/FA Q165 (This link is being provi ded for infor matroosevelt nal/e ducat ional purpo ses only. ) (Note ) This test was devel oped and its farnk tical perfo rmanc e jeff cteri stics have been deter mined by [facility]. It has not been clear ed or appro tamera by the FDA. This assay has been valid ated pursu ant to the CLIA regul ation s and is used for clini tomas purpo ses. F med fusio n [address] [facility] [address] [facility] [address] [phone] Raul zuluaga MD Not Available [facility] [address] [address] [place], [address], 11/07/2022 11:02:56 11/07/1911/07/2022 THINP REP TIS PAP clinical information: normal None given Not Available [facility] [address] [address] [place], [address], 11/07/2022 11:02:56 11/07/1911/07/2022 THINP REP TIS PAP LMP: normal None given Not Available [facility] [address] [address] [place], [address], 11/07/2022 11:02:56 11/07/19 23 11/07/2022 THINP REP TIS PAP prev. Pap: normal None given Not Available [address] [address] [place], [address], 11/07/2022 11:02:56 11/07/19 23 11/07/2022 THINP REP TIS PAP prev. BX: normal None given Not Available [address] [place], [address], 11/07/2022 11:02:56 11/07/19 23 11/07/2022 THINP REP TIS PAP source: normal Cervi x Not Available [address] [place], [address], 11/07/2022 11:02:56 11/07/19 23 11/07/2022 THINP REP TIS PAP statement of adequacy: normal Satis facto ry for evalu ation . Endoc ervic al/tr ansfo rmati on zone compo nent prese nt. 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 Not Available [address] [place], [address], 11/07/2022 11:02:56 11/07/19 23 11/07/2022 THINP REP TIS PAP comment: normal This Pap test has been evalu ated with compu ter lelo baca techn ology . Sugge [facility] clini tomas corre latio n and follo w-up as clini jose appro priat e Not Available [address] [address] [place], [address], 11/07/2022 11:02:56 11/07/19 23 11/07/2022 THINP REP TIS PAP cytotechnolo gist: normal LMT, CT( CP) CT scree nora locat ion: [address] [address] [place] [address] Not Available [address] [address] [place], [address], 11/07/2022 11:02:56 11/07/19 23 11/07/2022 THINP REP TIS PAP pathologist: normal Adelaida mayen M.D., Board Certi fied in Anato deysi Patho logy and Cytop athol ogy. Phone : [phone] (elec troni c signa jose) Not Available [address] [address], [place], [address], 11/07/2022 11:02:56 11/07/19 23 11/07/2022 THINP REP [...] clini tomas infor matio n. Not Available [address] [address] [place], [address], 11/07/2022 11:02:56 11/07/19 23 11/07/2022 PROLA CTIN [...] CLIEN T SERVI LANDON. PHONE NUMBE R: [phone] Not Available [employer] [facility] [address] [place], [address], 11/07/2022 11:02:57 08/25/20 21 08/29/2021 STI PANEL trichomonas vaginalis TRICH POS negati ve positive Not Available [address], [address], 08/30/2021 09:37:35 08/25/20 21 08/29/2021 STI PANEL chlamydia trachomatis CT neg negati ve If both Pap and Endoc ervic al swabs are colle cted, the Prese rvCyt Solut ion liqui d Pap speci men must be colle cted befor e the endoc ervic al swab speci men. Not Available [address], [address], 08/30/2021 09:37:35 08/25/20 21 08/29/2021 STI PANEL neisseria gonorrhoeae GC neg negati ve If both Pap and Endoc ervic al swabs are colle cted, the Prese rvCyt Solut ion liqui d Pap speci men must be colle cted befor e the endoc ervic al swab speci men. Not Available [facility] [address] [place], [address], 08/30/2021 09:37:35 08/25/20 21 09/06/2021 THINP REP TIS PAP clinical information: normal SCREE NORA Not Available [address] [address] [place], [address], 09/06/2021 10:28:32 08/25/20 21 09/06/2021 THINP REP TIS PAP LMP: normal NONE GIVEN Not Available [address] [place], [address], 09/06/2021 10:28:32 08/25/20 21 09/06/2021 THINP REP TIS PAP prev. Pap: normal NONE GIVEN Not Available [address] [place], [address], 09/06/2021 10:28:32 08/25/20 21 09/06/2021 THINP REP TIS PAP prev. BX: normal NONE GIVEN Not Available [address] [place], [address], 09/06/2021 10:28:32 08/25/20 21 09/06/2021 THINP REP TIS PAP source: normal Cervi x Not Available [address] [place], [address], 09/06/2021 10:28:32 08/25/20 21 09/06/2021 THINP REP TIS PAP statement of adequacy: normal Satis facto ry for evalu ation . Endoc ervic al/tr ansfo rmati on zone compo nent prese nt. Age and/o r menst rual statu s not provi ded Not Available [address] [place], [address], 09/06/2021 10:28:32 08/25/20 21 09/06/2021 THINP REP TIS PAP general categorizati on: abnormal EPITH ELIAL CELL ABNOR MALIT Y Not Available [address] [place], [address], 09/06/2021 10:28:32 08/25/20 21 09/06/2021 THINP REP TIS PAP interpretati on/result: abnormal Atypi tomas Squam ous Cells of Undet ermin ed Signi fican ce (ASC- [place]) Not Available [address] [address] [place], [address], 09/06/2021 10:28:32 08/25/20 21 09/06/2021 THINP REP TIS PAP comment: normal This Pap test has been evalu ated with compu ter lelo phuong techn ology . Sugge st clini tomas corre latio n and follo w-up as clini jose appro priat e Not Available [address] [address] [place], [address], 09/06/2021 10:28:32 08/25/20 21 09/06/2021 THINP REP TIS PAP cytotechnolo gist: normal BKA, CT( CP) CT scree nora locat ion: [address] [address] [place] [address] Not Available [address] [address] [place], [address], 09/06/2021 10:28:32 08/25/20 21 09/06/2021 THINP REP TIS PAP pathologist: normal Adelaida mayen M.D., Board Certi fied in Anato deysi Patho logy and Cytop athol ogy. Phone : [phone] (elec troni c signa ture) Not Available [address] [address] [place], [address], 09/06/2021 10:28:32 08/25/20 21 09/06/2021 THINP REP [...] clini tomas infor celi n. Not Available [facility] [address] [place], [address], 09/06/2021 10:28:32 08/25/2009/08/2021 HPV HIGH RISK HPV high risk Negati ve negati ve Not Available [address], [address], 09/09/2021 09:21:30 11/01/19 23 11/02/2022 STD SCREE NORA ([facility] ) hep B sag Non-Re active non-re active normal Not Available [address], [address], 11/02/2022 12:49:01 11/01/19 23 11/02/2022 STD SCREE NORA ([facility] ) hep C Ab Non-Re active non-re active normal Not Available [address], [address], 11/02/2022 12:49:01 11/01/19 23 11/02/2022 STD SCREE NORA ([facility] ) HIV 1/2 Ag/Ab Non-Re active non-re active normal Not Available [address], [address], 11/02/2022 12:49:01 11/01/19 23 11/02/2022 STD SCREE NORA ([facility] ) syphilis Ab Non-Re active non-re active normal Not Available [address], [address], 11/02/2022 12:49:01 11/01/19 23 11/02/2022 PROLA CTIN prolactin 7.7 NG/mL Refer ence Range s Femal e aged 18-Ad ult Nonpr egnan t: 2.8-2 9.2 ng/mL Pregn ant: 9.7-2 08.5 ng/mL Post- menop ausal : 1.8-2 0.3 ng/mL Pregn jalil, lacta tion, and the admin istra tion of oral contr acept shorty can incre ase prola ctin lucero ntrat ions. Not Available [address], [address], 11/02/2022 13:56:14 11/01/19 23 11/02/2022 HPV HIGH [...] l cervi tomas cytol ogy. Not Available [address], [address], 11/02/2022 15:56:55 11/01/1911/03/2022 VAGIN ITIS PLUS STD PANEL bacterial vaginosis BV POS negati ve abnormal Not Available [address], [address], 11/03/2022 13:41:18 11/01/19 23 11/03/2022 VAGIN ITIS PLUS STD PANEL stephany species C. spp neg negati ve normal Not Available [address], [address], 11/03/2022 13:41:18 11/01/19 23 11/03/2022 VAGIN ITIS PLUS STD PANEL stephany glabrata C. gla neg negati ve normal Not Available [address], [address], 11/03/2022 13:41:18 11/01/19 23 11/03/2022 VAGIN ITIS PLUS STD PANEL trichomonas vaginalis CV/TV TRICH POS negati ve abnormal Not Available [address], [address], 11/03/2022 13:41:18 11/01/19 23 11/03/2022 VAGIN ITIS PLUS STD PANEL chlamydia trachomatis CT neg negati ve normal This repor t is inten ded for us in clini tomas monit oring and manag ement of patie nts. It is not inten ded for use in medic al- gal appli catio n. Not Available [facility] [address] [place] [address], [address], 11/03/2022 13:41:18 11/01/19 23 11/03/2022 VAGIN ITIS PLUS STD PANEL neisseria gonorrhoeae GC neg negati ve normal This repor t is inten ded for us in clini tomas monit oring and manag ement of patie nts. It is not inten ded for use in medic al-le gal appli catio n. Not Available [facility] [address] [place] [address], [address], 11/03/2022 13:41:18 11/01/19 23 11/09/2022 HPV GENOT YPE HPV 16 Negati ve negati ve normal Not Available [facility] [address] [place] [address], [address], 11/10/2022 07:58:26 11/01/19 23 11/09/2022 HPV GENOT YPE HPV 18/45 Negati ve negati ve normal Assay can diffe renti ate HPV 16 from HPV 18 and/o r HPV 45. But inocenteo t diffray renti ate betwe en 18 and 45. Not Available [facility] [address] [place] [address], [address], 11/10/2022 07:58:26 Result Notes None recorded. Procedures Surgical History Date Name Laterality Status Provider Name and Address Organization Details Recorded Time 4 Colposcopy - Cervix cancelled Micheline Elizabether [employer] [facility] 09/10/2023 14:36:37 3 Most Recent Mammogram completed [employer] 11/20/2023 16:09:53 3 Date of Last Pap Smear completed Micheline Becker [facility] 12/06/2022 16:59:17 Heart surgery completed Micheline Becker [facility] 11/01/2022 16:00:03 placement of stent in pulmonary artery completed Micheline Becker [facility] 08/25/2021 10:32:29 Imaging Results None recorded. Procedure Notes None recorded. Medical Equipment None Reported. Allergies Allergen ID Allergen Name Allergen Category Reaction Reaction Severity Criticality Documentation Date Start Date Code Code System Note Provider Name and Address Organization Details Recorded Time 429793 erythromy stevie medicatio n Not available Not available Not available 08/25/2021 4053 RxNorm Micheline briceno, [facility] 10:28:57 248283 azithromy stevie medicatio n Not available Not available Not available 11/01/2022 88128 RxNorm Micheline briceno, [facility] 16:00:03 Medications Name Sig Start Date Stop Date [...] Updated DateTime 1 175.26 cm 39.1 kg/m2 216013. 98 g 98.4 [degF] 138 mm[Hg] 86 mm[Hg] Micheline Rosita [employer] [facility] 1 10:27:39 Date Recorded Body height Body mass index (BMI) Body weight Body temperature Systolic blood pressure Diastolic blood pressure Provider Name and Address Organization Details Last Updated DateTime 3 175.26 cm 40.1 kg/m2 389949. 69 g 98.4 [degF] 144 mm[Hg] 92 mm[Hg] Micheline [place] [employer] [facility] 3 16:09:37 Date Recorded Body height Body mass index (BMI) Body weight Body temperature Systolic blood pressure Diastolic blood pressure Provider Name and Address Organization Details Last Updated DateTime 3 175.26 cm 40.1 kg/m2 680701. 41 g 98.2 [degF] 178 mm[Hg] 118 mm[Hg] Micheline [place] [employer] [facility] 3 16:58:15 Social History Question Answer Notes LastModified by Organizat ion Details LastModified Time Tobacco Smoking Status Former Smoker Micheline Becker null, [facility] 11/01/2022 16:00:31 What Type Of Diet Are You Following? REGULAR Information not available 11/01/2022 How Many Children [...] Functional Status Question Answer Note LastModified by [employer] Details LastModified Time What is your level of alcohol consumption? None Information not available 08/25/2021 Do you or have you ever used e-cigarettes or vape? Current user of electronic cigarettes Information not available 11/01/2022 What is your exercise level? Occasional Information not available 11/01/2022 Mental Status None recorded. Family History Relationship Description Onset Age of this Age Resolved Age Notes LastModified by Organization Details LastModified Time Father Myocardial infarction Not available 10:31:45 Father Heart disease Not available 10/09 16:00:03 Mother Malignant neoplasm of lung Not available 08/08 10:31:52 Medical History Condition Response High Blood Pressure Y Depression Y Heart Attack Y Panic Attacks Y High Cholesterol Y Heart Disease Y Gynecological History Statement/Question [...] SNOMED-CT Code Diagnosis ICD10 Code Diagnosis Note [id number] Monique Bridges CNM [address] [address] 08/25/2021 09:59:00 08/29/2021 11:36:18 Gynecologic examination 12178079 Z01.419 Screening for malignant neoplasm of cervix 653634516 Z12.4 [facility] care education 792212897 Z30.09 Depression screening 171 560891 Z13.31 Dietary ma nagement surveillance 560041349 Z71.3 Venereal d isease screening 558984068 Z11.3 Bilateral discharge from nipples 5026601181 2283953 N64.52 [id number] Monique Bridges CNM [facility] [address] [place] [address] 11/01/2022 15:55:13 11/01/2022 17:29:20 Gynecologic examination 90731310 Z01.419 Screening for malignant neoplasm of cervix 657579477 Z12.4 Screening for malignant neoplasm of breast 172764797 Z12.39 Depression screening 171 959562 Z13.31 Increased hair growth 13 474890 L68.9 Vaginal discharge 076581 006 N89.8 Discharge from nipple 54 285094 N64.52 Venereal d isease screening 158361197 Z11.3 Hemorrhoids 23833337 K64 .9 referral to GI initiated [id number] KANCHAN [address] [address] 12/06/2022 16:44:13 12/07/2022 12:30:50 Low grade squamous intraepithelial lesion on cervical Papanicolaou smear 3417124956 9105 R87.612 Human nisha llomavirus deoxyribonucleic acid detected, high risk on cervical specimen 047454537 R87.810 Anxiety 55632724 F41.9 Hypertensive crisis 7068 95383 I16.9 Severe range blood pressure today. Discussed [...] Recorded Advance Directives Directive None Recorded Payers Insurance Date Sequence Insurance Name Policy Number Policy Hernandez Covered Member ID Hernandez Member ID Guarantor Name 11/09/2022 1 [employer] [place] - DOS ON OR AFTER 2020 (MEDICAID REPLACEMENT - HMO) Prem Rao [id number] Prem Rao 11/09/2022 1 [place] [facility] PUBLIC AID Prem Rao [id number] Prem Rao 12/30/2023 1 [id number] Prem Rao [id number] Prem Roa 11/10/2022 1 [employer] Prem Rao [id number] Prem Rao Notes Date Note Type Note [...] symptoms:No depression; No anxiety; No PMDD Monique Bridges, [facility] [address], [place], [address], [facility] [employer] 08/28/2021 16:29:04 11/01/2022 text/html Annual GYNReport ed [...] second heart attack on December 09 Monique Bridges, KANCHANM [address], [place], [address], [facility] 11/05/2022 23:06:56 12/06/2022 text/html pt is here for colpo. LGSIL HPV positive 16, 18/45 negative. Patient blood pressure severely elevated today. Monique Bridges, DYLAN [address] [place], [address], [facility] [facility] 12/17/2022 14:34:45 OBGyn Episode Ob Episode Information Episode Created Date Number of Fetuses Patient Bloodtype Patient rh Status Prepregnancy Weight lbs Domestic Partner Domestic Partner Phone Father Name Store Clerk Checker Status 08/25/20 21 1 CLOSED Fetus Data First Name Last Name Admitted to NICU Weight (g) Sex Living Outcome Pediatric Complications Fetus ID Race Codes Race Delivery Type 4167.14 9704 M Full Term [id number] Esau Calculation Initial Esau Date Initial Exam [...]
--- OUTSIDE RECORDS SUMMARY | 2025-02-17 16:08 | XMS_ITS | Clinical Summary ---
Author Organization [facility] Address [address] [place] [address] Care Team Providers Care Ball Racker Name Role Phone None, Provider MD Primary [...] 3-dose series) 2001 Cervical Cancer Screening Pa margareth with HPV Testing (Age 30 to 64) Every 5 Years 2012 Cervical Cancer Screening with HPV 2012 Mammogram Screening 2022 COVID-19 Vaccine (2023-2 5 season) 2024 HPV Vaccines Aged Out No longer eligi ble based on patient's age to complete this topic Meningococcal B Vaccine Aged Out No l onger eligible based on patient's age to complete this topic Meningococcal Vaccine Aged Out No beth paola eligible based on patient's age to complete this topic Pneumococcal Vaccine: Pediat rics (0 to 5 Years) and At-Risk Patients (6 to 49 Years) Aged Out No longer eligible b ased on patient's age to complete this topic RSV Immunizations Under 20 Months Aged Out No longer eligible based on patient's age to complete this topic Care Teams Ball Racker Relationship Specialty Start Date End Date None, Provider, PCP - General 05/03/19
--- OUTSIDE RECORDS SUMMARY | 2025-02-17 16:08 | XMS_ITS | Referral Summary ---
Author Organization [facility] [address] [place] [address] 162 Address [address] [place] [address] Care Team Providers Care Rod Piler Name Role Phone Aleida Hu Primary Care Provider + Didier Quispe MD Unavailable [phone] Angelique Durant NP Unavailable [phone] Encounters Date Type Department Care Team Description 02/11/2025 Orders Only [facility] Surgery [address] [facility] [address] [place] [address] Violeta Morelos NP Hx of CABG (Primary Dx) 02/09/2025 Orders Only [facility] Surgery [id number] [place] [address] [address] [place] [address] Herrera Lin NP Coronary artery disease 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 pectoris (Primary Dx) 02/06/2025 9:00 AM CDT Office Visit [facility] Surgery [address] [place] [address] [address] [place] [address] Didier Quispe MD Coronary artery disease 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 pectoris 01/29/2025 Telephone [facility] Medical Group Cardiology [address] [facility] [address] [place] [address] Remi Gomes MD 01/17/2025 Orders Only [facility] Surgery [address] [facility] [address] [place] [address] Violeta Morelos NP 01/13/2025 [facility] Post Discharge Follow up phone call [facility] [address] [place] [address] Iza Vasquez 01/12/2025 Documentation [facility] Surgery [address] [facility] [address] [place] [phone] Dayne Moura NP 01/12/2025 Orders Only [facility] Surgery [address] [facility] [address] [place] [phone] Dayne Moura NP 12/27/2024 5:50 PM CDT - 01/06/2025 6:42 PM CDT Hospital Encounter [facility] [address] [place] [address] Gus Higgins DO Rudomiotov, Olga, MD Ray, Shuddhadeb, MD Coronary artery disease 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 pectoris (Primary Dx); Presence of stent in coronary artery Discharge Disposition: Discharge to home, home health skilled care 01/01/2025 Orders Only [facility] Medical Group Cardiology [address] [place] [address] [place] [phone] Roger Turcios MD 01/01/2025 8:20 AM CDT - 01/01/2025 2:05 PM CDT Surgery [facility] Operating Room [address] [place] [address] Didier Quispe MD CORONARY ARTERY BYPASS GRAFT - INTERNAL MAMMARY/RADIAL ARTERY/SAPHENOUS VEIN GRAFT - LEG 01/01/2025 8:51 AM CDT Anesthesia Event [facility] Operating Room [address] [place] [address] Fifi Keys MD Becker, Scott C 12/27/2024 Orders Only [facility] Health Information Management [address] [place] [address] Roger Turcios MD 12/26/2024 Telephone [facility] Medical Group Cardiology [address] [facility] [address] [place] [phone] Roger Turcios MD from Last 3 Months Allergies Active Allergy Reactions Criticality Noted Date Comments Erythromycin Other (See comments) Low 05/03/2019 States she was a baby and was told she was allergic Metoprolol Dizziness Low 12/30/2024 Slgneyo-Qcs-Zsb Reductase Inhibitors Muscle pain Medium 12/30/2024 Medications [...] Diagnosed Date Coronary artery disease (CAD) excluded 5 Coronary artery disease of n ative heart with stable angina pectoris 12/30/2024 NSTEMI (non-ST elevated myocardial infarction) 0 12/27/2024 Angina pectoris, unspecified 04/24/2023 Body mass index 40.0-44.9, adult ([facility]) 01/09 Morbid (severe) obesity due to excess calories 0 02/28/2022 Coronary artery disease invo lving [place] coronary artery of [place] heart without angina pectoris 05/12/2021 History of coronary artery stent placement 05/12 Social History Tobacco Use Types Packs/Day Years Used Date Smoking Tobacco: Former Cigarettes Smokeless Tobacco: Never Tobacco Cessation:Counseling Given: Not Answered [facility] Utilities Answer Date Recorded In the past 12 months has e [employer], [employer] or [employer] threatened to shut off services in your [...] often do you attend chur ch or christianity services? Never 12/30/2024 Do you belong to any clubs o r organizations such as scientology groups, unions, fraternal or athletic groups, or [...] any time in the past 12 [facility], were you homeless or living in a detention (including now)? No 12/30/2024 Personal Safety Answer [...] 12/27/2024 6:05 PM CDT Plan of Treatment Not on file Medical Devices Implanted Type Area Software Support Engineer Device Identifier Shelf Expiration Date Model / Serial / Lot [employer] Plate Bone Low Profile 6 Hole O Shape Sternum Ti 115.104.06 - [id number] Implanted:Qty: 1 on 01/01/2025 by Didier Quispe MD at [facility] Plate N/A: Sternum [employer] 115.104.06 / / [employer] Plate Bone Low Profile 4 Hole Box Sternum Ti 115.103.04 - [id number] Implanted:Qty: 1 on 01/01/2025 by Didier Quispe MD at [facility] Plate N/A: Sternum [employer] 115.103.04 / / [employer] Plate Bone Low Profile 6 Hole H Shape Sternum Ti 115.102.06 - [id number] Implanted:Qty: 1 on 01/01/2025 by Didier Quispe MD at [facility] Plate N/A: Sternum [employer] 115.102.06 / / [employer] Screw Bone Slf Drl Full Thread Locking 3.5x18mm Ti 100.035.18 - [id number] Implanted:Qty: 16 on 01/01/2025 by Didier Quispe MD at [facility] Screw N/A: Sternum [employer] 100.035.18 / / Explanted Type Area Software Support Engineer Device Identifier Shelf Expiration Date Model / Serial / Lot [employer] Shunt Coronary Soft Conical Bulb [place] 1.80e69dp Silicone 87623 - S00 - [id number] Explanted:Qt y: 1 on 01/01/2025 by Didier Quispe MD at [facility] Intraatrial Shunt Device N/A: Coronary Artery [employer] 02/20/2027 [id number] / 00 / [id number] Procedures Procedure Name Priority Date/Time Associated [...] 6:57 AM CDT Coronary artery disease 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 pectoris XR CHEST 1 [...] 9:29 PM CDT Coronary artery disease 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 pectoris CALCIUM,IONIZED, WHOLE BLOOD [...] 6:53 AM CDT Coronary artery disease 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 pectoris POCT GLUCOSE DEVICE [...] 7:43 PM CDT Coronary artery disease 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 pectoris POCT GLUCOSE DEVICE [...] 3:05 PM CDT Coronary artery disease 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 pectoris POC BLOOD GAS [...] LINE PLACEMENT Routine 01/01/2025 10:03 AM CDT MI AN ELECTIVE ENDOTRACHEAL AIRWAY Routine 01/01/2025 10:02 [...] 8:50 AM CDT Coronary artery disease of [place] heart with stable angina pectoris, unspecified vessel [...] FINDINGS: The distal tip of the retracted [place] catheter is in the superior vena cava. [...] FINDINGS: The distal tip of the retracted [place] catheter is in the superior vena cava. Lungs clear other than for subsegmental atelectasis in the medial left lower lobe. Cardiovascular structures unremarkable. IMPRESSION: No active disease. Electronically signed by: Nilson Solomon M.D. us Herrera Lin COLOR ADVISER IMG XR PROCEDURES Final Re sult * eGFR (01/06/2025 6:25 AM CDT) Pathologist [facility] eGFR >90 >=60 mL/min/1. 73 m2 Comment: [...] 01/06/2025 7:24 AM CDT us Dayne Moura NP LAB BLOOD ORDERABLES Final Result [facility] [address] [place] [address] * (ABNORMAL) CBC without differential (01/06/2025 6:25 AM CDT) Pathologist [facility] WBC 7.5 3.8 - 9.9 K/cumm Hgb 9.1(L) 11.9 - 15.5 g/dL [facility] Hct 27.6(L) 35.6 - 45.5 % [facility] Plt 267 150 - 400 K/cumm [facility] MPV 10.1 9.1 - 12.3 fL [facility] RBC 2.97(L) 3.90 - 5.20 M/cumm [facility] MCV 92.9 81.3 - 96.4 fL [facility] CH MCH 30.6 27.1 - 33.3 pg [facility] MCHC 33.0 32.3 - 35.7 g/dL [facility] CH RDW CV 13.6 11.1 - 14.9 % [facility] CH RDW SD 46.1 35.7 - 48.1 fL [facility] NRBC abs 0.00 0.00 - 0.01 K/cumm [facility] Blood 01/06/2025 6:25 AM CDT 01/06/2025 7:24 AM CDT Dayne Moura NP LAB BLOOD ORDERABLES Final Result [facility] [address] Department [place] [address] * Basic metabolic panel (01/06/2025 6:25 AM CDT) Sodium 140 135 - 145 mmol/L Potassium, pl 3.7 3.3 - 4.9 mmol/L [facility] Chloride 105 97 - 110 mmol/L [facility] CO2 22 22 - 32 mmol/L [facility] Anion gap 13 2 - 15 mmol/L [facility] BUN 12 6 - 25 mg/dL [facility] Creatinine 0.79 0.60 - 1.10 mg/dL [facility] Glucose 100 70 - 199 mg/dL [facility] Comment: Interpretive Data Fasting glucose >/= [...] 2022. Calcium 8.8 8.5 - 10.3 mg/dL [facility] Blood 01/06/2025 6:25 AM CDT 01/06/2025 7:24 AM CDT Dayne Moura NP LAB BLOOD ORDERABLES Final Result [facility] [address] [place] [address] * XR Chest PA Lateral 2 Views [...] Electronically signed by: Dewey Wylie II, D.O. us Dayne Moura NP IMG XR PROCEDURES Final Res ult * [...] 5:13 AM CDT 01/05/2025 6:09 AM CDT us Dayne Moura NP LAB BLOOD ORDERABLES Final Result [facility] [address] Department [employer] [place], [place] [address] * (ABNORMAL) aPTT (01/05/2025 5:13 AM CDT) aPTT 27(L) 28 - 38 sec Comment: Interpretive Data Heparin therapeutic range: 66.0 - 100.0 seconds. Range based on correlation with therapeutic heparin activity range of 0.3 - 0.7 Units/mL. Current interpretive data was last revised on 2023. Blood 01/05/2025 5:13 AM CDT 01/05/2025 6:10 AM CDT Dayne Moura NP [place] [address] [address] Department of [employer] [place], [place] [id number] * Protime-INR (01/05/2025 5:13 AM CDT) PT 12.7 9.7 - 13.0 sec INR 1.17 0.90 - 1.20 [facility] Comment: Interpretive data Oral anticoagulant therapeutic ranges: Venous thromboembolism prophylaxis or treatment: 2.0-3.0 CARDIOLOGY Standard range: 2.0-3.0 High-intensity range: 2.5-3.5 Refer to indication-specific guidelines for appropriate target ranges for prosthetic heart valve replacement. Current interpretive data was last revised on 2019. Blood 01/05/2025 5:13 AM CDT 01/05/2025 6:10 AM CDT Dayne Moura NP LAB BLOOD ORDERABLES Final Result Performing Organization Address City/[facility] de Phone Number [facility] [address] Department [place] [address] * (ABNORMAL) CBC without differential (01/05/2025 5:13 AM CDT) WBC 8.1 3.8 - 9.9 K/cumm Hgb 8.4(L) 11.9 - 15.5 g/dL [facility] Hct 26.3(L) 35.6 - 45.5 % [facility] Plt 210 150 - 400 K/cumm [facility] MPV 10.3 9.1 - 12.3 fL [facility] RBC 2.81(L) 3.90 - 5.20 M/cumm [facility] MCV 93.6 81.3 - 96.4 fL [facility] MCH 29.9 27.1 - 33.3 pg [facility] MCHC 31.9(L) 32.3 - 35.7 g/dL [facility] RDW CV 13.6 11.1 - 14.9 % [facility] RDW SD 46.5 35.7 - 48.1 fL [facility] NRBC abs 0.00 0.00 - 0.01 K/cumm [facility] Blood 01/05/2025 5:13 AM CDT 01/05/2025 6:10 AM CDT Dayne Moura NP LAB BLOOD ORDERABLES Final Result [facility] [address] [place] [address] * Basic metabolic panel (01/05/2025 5:13 AM CDT) Sodium 139 135 - 145 mmol/L Potassium, pl 3.7 3.3 - 4.9 mmol/L [facility] Chloride 105 97 - 110 mmol/L [facility] CO2 22 22 - 32 mmol/L [facility] Anion gap 12 2 - 15 mmol/L [facility] BUN 12 6 - 25 mg/dL [facility] Creatinine 0.73 0.60 - 1.10 mg/dL [facility] Glucose 105 70 - 199 mg/dL [facility] CH Comment: Interpretive Data Fasting glucose >/= [...] 2022. Calcium 8.5 8.5 - 10.3 mg/dL [facility] Blood 01/05/2025 5:13 AM CDT 01/05/2025 6:09 AM CDT Dayne Moura COLOR ADVISER LAB BLOOD ORDERABLES Final Result Performing Organization Address City/[facility]/ZIP Co de Phone Number [facility] [address] Department [place] [address] * POCT glucose (01/04/2025 9:45 PM CDT) Glucose, POC 115 70 - 199 mg/dL POC Performer [id number] [facility] Blood 01/04/2025 9:45 PM CDT 01/04/2025 9:45 PM CDT Didier Quispe MD LAB POCT ORDERABLES - DEVICE F inal Result Performing Organization Address City/[facility]/ZIP Co de Phone Number [facility] [address] Department [place] [address] * POCT glucose (01/04/2025 7:43 AM CDT) Glucose, POC 103 70 - 199 mg/dL POC Performer [id number] [facility] Blood 01/04/2025 7:43 AM CDT 01/04/2025 7:43 AM CDT Didier Quispe MD LAB POCT ORDERABLES - DEVICE F inal Result Performing Organization Address [facility] Co de Phone Number [facility] [address] [place] [address] * XR Chest 1 View - Portable [...] chest. Electronically signed by: Baudilio Hogan M.D. us Nhi Pruett MD IMG XR [...] 5:10 AM CDT 01/04/2025 6:21 AM CDT us Dayne Moura COLOR ADVISER LAB BLOOD ORDERABLES Final Result [facility] [address] [place] [address] * (ABNORMAL) CBC without differential (01/04/2025 5:10 AM CDT) WBC 10.8(H) 3.8 - 9.9 K/cumm Hgb 8.3(L) 11.9 - 15.5 g/dL [facility] Hct 25.9(L) 35.6 - 45.5 % [facility] Plt 173 150 - 400 K/cumm [facility] MPV 10.5 9.1 - 12.3 fL [facility] RBC 2.78(L) 3.90 - 5.20 M/cumm [facility] MCV 93.2 81.3 - 96.4 fL [facility] MCH 29.9 27.1 - 33.3 pg [facility] MCHC 32.0(L) 32.3 - 35.7 g/dL [facility] RDW CV 13.7 11.1 - 14.9 % [facility] RDW SD 47.1 35.7 - 48.1 fL [facility] NRBC abs 0.00 0.00 - 0.01 K/cumm [facility] Blood 01/04/2025 5:10 AM CDT 01/04/2025 6:20 AM CDT Dayne Moura COLOR ADVISER LAB BLOOD ORDERABLES Final Result Performing Organization Address [facility] Co de Phone Number [facility] [address] [facility] [place] [address] * Magnesium (01/04/2025 5:10 AM CDT) Pathologist [facility] Magnesium 2.2 1.4 - 2.5 mg/dL Blood 01/04/2025 5:10 AM CDT 01/04/2025 6:21 AM CDT Dayne Moura COLOR ADVISER LAB BLOOD ORDERABLES Final Result Performing Organization Address [facility] de Phone Number [facility] [address] Department [employer] [place] [address] * Basic metabolic panel (01/04/2025 5:10 AM CDT) Sodium 139 135 - 145 mmol/L Potassium, pl 4.3 3.3 - 4.9 mmol/L [facility] Chloride 107 97 - 110 mmol/L [facility] CO2 22 22 - 32 mmol/L [facility] Anion gap 10 2 - 15 mmol/L [facility] BUN 11 6 - 25 mg/dL [facility] Creatinine 0.73 0.60 - 1.10 mg/dL [facility] Glucose 107 70 - 199 mg/dL [facility] Comment: Interpretive Data Fasting glucose >/= [...] 2022. Calcium 8.5 8.5 - 10.3 mg/dL [facility] Blood 01/04/2025 5:10 AM CDT 01/04/2025 6:21 AM CDT Dayne Moura NP LAB BLOOD ORDERABLES Final Result Performing Organization Address City/[facility]/ZIP Co de Phone Number [facility] [address] Department [employer] [place] [address] * POCT glucose (01/03/2025 8:07 PM CDT) Glucose, POC 130 70 - 199 mg/dL POC Performer [id number] [facility] Blood 01/03/2025 8:07 PM CDT 01/03/2025 8:07 PM CDT Didier Quispe MD LAB POCT ORDERABLES - DEVICE F inal Result Performing Organization Address City/[facility]/ZIP Co de Phone Number [facility] [address] Department [place] [address] * Calcium, ionized, whole blood (01/03/2025 1:35 PM CDT) Ca, ionized, bld 4.63 4.50 - 5.10 mg/dL Blood 01/03/2025 1:35 PM CDT 01/03/2025 1:39 PM CDT [place]in Feng COLOR ADVISER LAB BLOOD ORDERABLES F inal Result Performing Organization Address [facility] de Phone Number [facility] [address] [facility] [place] [address] * eGFR (01/03/2025 1:35 PM CDT) eGFR >90 >=60 mL/min/1. 73 [...] CDT 01/03/2025 1:49 PM CDT [place]in Feng COLOR ADVISER LAB BLOOD ORDERABLES F inal Result Performing Organization Address [facility] de Phone Number [facility] [address] Department [place] [address] * Magnesium (01/03/2025 1:35 PM CDT) Magnesium 2.2 1.4 - 2.5 mg/dL Blood 01/03/2025 1:35 PM CDT 01/03/2025 1:39 PM CDT [place]in Feng COLOR ADVISER LAB BLOOD ORDERABLES F inal Result Performing Organization Address [facility]/ZIP Co de Phone Number [facility] [address] Department of Laboratories [place], [place] [phone] * (ABNORMAL) Renal function panel (01/03/2025 1:35 PM CDT) Sodium 137 135 - 145 mmol/L Potassium, pl 4.4 3.3 - 4.9 mmol/L [facility] Chloride 107 97 - 110 mmol/L [facility] CO2 20(L) 22 - 32 mmol/L [facility] Anion gap 10 2 - 15 mmol/L [facility] BUN 10 6 - 25 mg/dL [facility] Creatinine 0.71 0.60 - 1.10 mg/dL [facility] Glucose 114 70 - 199 mg/dL [facility] Comment: Interpretive Data Fasting glucose >/= [...] 2022. Calcium 8.6 8.5 - 10.3 mg/dL [facility] Phosphorus, pl 2.7 2.3 - 4.5 mg/dL [facility] Albumin 3.5 3.5 - 5.0 g/dL [facility] Blood 01/03/2025 1:35 PM CDT 01/03/2025 1:39 PM CDT [place]in Feng COLOR ADVISER LAB BLOOD ORDERABLES F inal Result Performing Organization Address City/[facility]/ZIP Co de Phone Number [facility] [address] Department of Laboratories [place], [place] [phone] * POCT glucose (01/03/2025 12:18 PM CDT) Glucose, POC 113 70 - 199 mg/dL POC Performer [id number] [facility] Blood 01/03/2025 12:1 8 PM CDT 01/03/2025 12:18 PM CDT Didier Quispe MD LAB POCT ORDERABLES - DEVICE F inal Result Performing Organization Address [facility] Co de Phone Number [facility] [address] [place] [address] * POCT glucose (01/03/2025 7:37 AM CDT) Glucose, POC 126 70 - 199 mg/dL POC Performer [id number] [facility] Blood 01/03/2025 7:37 AM CDT 01/03/2025 7:37 AM CDT Didier Quispe MD LAB POCT ORDERABLES - DEVICE F inal Result Performing Organization Address [facility] Co de Phone Number [facility] [address] [employer] [place] [address] * Critical Care (01/03/2025 6:57 AM CDT) [...] plan with the patient's team and other medical/qm consultant staff. This time was in addition [...] chest. Electronically signed by: Baudilio Hogan M.D. us Nhi Pruett MD IMG XR PROCEDURES Final Resul t * Oxyhemoglobin, central venous (01/03/2025 3:49 AM CDT) Oxyhemoglobin, CV 58.7 % Comment: Interpretive Data No reference range established. Current interpretive data was last revised 2019. Blood 01/03/2025 3:49 AM CDT 01/03/2025 3:55 AM CDT us Didier Quispe MD LAB BLOOD ORDERABLES Final Res ult [facility] [address] Department [employer] [place], [place] [phone] * Calcium, ionized, whole blood (01/03/2025 3:49 AM CDT) Ca, ionized, bld 5.07 4.50 - 5.10 mg/dL Blood 01/03/2025 3:49 AM CDT 01/03/2025 3:55 AM CDT us Dayne Moura NP LAB BLOOD ORDERABLES Final Result Performing Organization Address City/[facility] Co de Phone Number [facility] [address] [employer] [place], [place] [phone] * eGFR (01/03/2025 3:49 AM CDT) eGFR [...] CDT 01/03/2025 3:56 AM CDT Dayne Moura COLOR ADVISER LAB BLOOD ORDERABLES Final Result Performing Organization Address City/[facility]/ZIP Co de Phone Number [facility] [address] [address] [facility] [employer] [place], [place] [id number] * POCT glucose (01/03/2025 3:49 AM CDT) Pathologist [facility] Glucose, POC 121 70 - 199 mg/dL POC Performer [id number] [facility] Blood 01/03/2025 3:49 AM CDT 01/03/2025 3:49 AM CDT Didier Quispe MD LAB POCT ORDERABLES - DEVICE F inal Result Performing Organization Address [facility] Co de Phone Number [facility] [address] Department [place] [address] * (ABNORMAL) CBC without differential (01/03/2025 3:49 AM CDT) WBC 11.9(H) 3.8 - 9.9 K/cumm Hgb 8.9(L) 11.9 - 15.5 g/dL [facility] Hct 28.0(L) 35.6 - 45.5 % [facility] Plt 154 150 - 400 K/cumm [facility] MPV 10.2 9.1 - 12.3 fL [facility] RBC 3.01(L) 3.90 - 5.20 M/cumm [facility] MCV 93.0 81.3 - 96.4 fL [facility] MCH 29.6 27.1 - 33.3 pg [facility] MCHC 31.8(L) 32.3 - 35.7 g/dL [facility] RDW CV 13.5 11.1 - 14.9 % [facility] RDW SD 46.5 35.7 - 48.1 fL [facility] NRBC abs 0.00 0.00 - 0.01 K/cumm [facility] Blood 01/03/2025 3:49 AM CDT 01/03/2025 3:56 AM CDT Dayne Moura COLOR ADVISER LAB BLOOD ORDERABLES Final Result Performing Organization Address City/[facility]/ZIP Co de Phone Number [facility] [address] Department [place] [address] * Magnesium (01/03/2025 3:49 AM CDT) Pathologist [facility] Magnesium 1.9 1.4 - 2.5 mg/dL Blood 01/03/2025 3:49 AM CDT 01/03/2025 3:56 AM CDT Dayne Moura COLOR ADVISER LAB BLOOD ORDERABLES Final Result Performing Organization Address [facility] de Phone Number [facility] [address] [employer] [place] [address] * (ABNORMAL) Basic metabolic panel (01/03/2025 3:49 AM CDT) Pathologist [facility] Sodium 139 135 - 145 mmol/L Potassium, pl 4.4 3.3 - 4.9 mmol/L [facility] Chloride 106 97 - 110 mmol/L [facility] CO2 22 22 - 32 mmol/L [facility] Anion gap 11 2 - 15 mmol/L [facility] BUN 9 6 - 25 mg/dL [facility] Creatinine 0.76 0.60 - 1.10 mg/dL [facility] Glucose 116 70 - 199 mg/dL [facility] Comment: Interpretive Data Fasting glucose >/= [...] 2022. Calcium 8.4(L) 8.5 - 10.3 mg/dL [facility] Blood 01/03/2025 3:49 AM CDT 01/03/2025 3:56 AM CDT us Dayne Moura COLOR ADVISER LAB BLOOD ORDERABLES Final Result Performing Organization Address [facility] Co de Phone Number [facility] [address] [address] [place] [address] * POCT glucose (01/03/2025 12:03 AM CDT) Glucose, POC 139 70 - 199 mg/dL POC Performer [id number] [facility] Blood 01/03/2025 12:0 3 AM CDT 01/03/2025 12:03 AM CDT Didier Quispe MD LAB POCT ORDERABLES - DEVICE F inal Result Performing Organization Address [facility] Co de Phone Number [facility] [address] [address] Department [employer] [place] [address] * Critical Care (01/02/2025 9:29 PM CDT) Narrative Sherman Blake MD - 01/02/2025 9:29 PM CDT Sherman Balke MD 01/03/2025 6:26 AM Critical Care Performed [...] plan with the ICU team and other medical/qm consultant staff, making frequent assessments and decisions [...] spent time documenting in the medical record Shanon JOSÉ IN CLINIC/BEDSIDE ORDERA BLES Final Result * (ABNORMAL) Calcium, ionized, whole blood (01/02/2025 8:56 PM CDT) Ca, ionized, bld 5.25(H) 4.50 - 5.10 mg/dL Blood 01/02/2025 8:56 PM CDT 01/02/2025 8:59 PM CDT Didier Quispe MD LAB BLOOD ORDERABLES Final Res ult [facility] [address] [address] [place] [address] * (ABNORMAL) Blood gas, arterial (01/02/2025 8:56 [...] LAB BLOOD ORDERABLES Final Res ult NOEMI [address] [address] [place] [address] * XR Chest 1 Vw Portable (01/02/2025 [...] lungs are clear. Bilateral thoracostomy tubes and [place]-Lind[place] catheter are in good position. Procedure Note [...] lungs are clear. Bilateral thoracostomy tubes and [place]Lindsay catheter are in good position. IMPRESSION: No change since the last study. Electronically signed by: Nilson Solomon M.D. Didier Quispe MD IMG XR PROCEDURES Final Result * POCT glucose (01/02/2025 7:42 PM CDT) Glucose, POC 124 70 - 199 mg/dL POC Performer [id number] NOEMI ARECHIGA Blood 01/02/2025 7:42 PM CDT 01/02/2025 7:42 PM CDT us Didier Quispe MD LAB POCT ORDERABLES - DEVICE F inal Result Performing Organization Address [facility] Co de Phone Number NOEMI ARECHIGA [address] [address] [facility] [employer] [place] [address] * POCT glucose (01/02/2025 5:33 PM CDT) Glucose, POC 115 70 - 199 mg/dL POC Performer [id number] [facility] Blood 01/02/2025 5:33 PM CDT 01/02/2025 5:33 PM CDT Didier Quispe MD LAB POCT ORDERABLES - DEVICE F inal Result Performing Organization Address [facility] Phone Number NOEMI [address] [address] [place] [address] * ECG 12 lead (01/02/2025 4:58 PM CDT) 01/02/2025 4:58 PM CDT Narrative [facility] - 01/02/2025 9:08 PM CDT Vent Rate: 116 bpm RR Interval: 513 msec MI Interval: 136 msec QRS Duration: 85 msec QT Interval: 338 msec QTC Interval: 407 msec P-R-T [place]: 37 - 84 - 50 degrees IMPRESSION: SINUS TACHYCARDIA POSSIBLE ANTERIOR MYOCARDIAL INFARCTION , OF INDETERMINATE AGE [30 ms Q WAVE IN V3/V4, OR R < 0.2 mV IN V4] POSSIBLE INFERIOR MYOCARDIAL INFARCTION , OF INDETERMINATE AGE [30 ms Q WAVE IN II/aVF] ABNORMAL ECG Electronically Signed By: Dr. Rivera Epps Nhi Pruett MD ECG ORDERABLES Final Result Performing Organization Address [facility] Co de Phone Number [facility] [employer] [facility] * (ABNORMAL) Calcium, ionized, whole blood (01/02/2025 1:31 PM CDT) Ca, ionized, bld 4.41(L) 4.50 - 5.10 mg/dL Blood 01/02/2025 1:31 PM CDT 01/02/2025 1:43 PM CDT Carolin Feng COLOR ADVISER LAB BLOOD ORDERABLES F inal Result Performing Organization Address [facility] de Phone Number NOEMI [address] [address] Department [employer] [place], [place] [address] * eGFR (01/02/2025 1:31 PM CDT) Pathologist [facility] eGFR >90 >=60 mL/min/1. 73 m2 Comment: [...] 1:31 PM CDT 01/02/2025 1:51 PM CDT Carolin Feng COLOR ADVISER LAB BLOOD ORDERABLES F inal Result Performing Organization Address [facility] Co de Phone Number NOEMI [address] [place] [address] * (ABNORMAL) CBC without differential (01/02/2025 1:31 PM CDT) Pathologist [facility] WBC 12.0(H) 3.8 - 9.9 K/cumm Hgb 9.8(L) 11.9 - 15.5 g/dL [facility] Hct 30.2(L) 35.6 - 45.5 % [facility] Plt 174 150 - 400 K/cumm [facility] MPV 9.9 9.1 - 12.3 fL [facility] RBC 3.35(L) 3.90 - 5.20 M/cumm [facility] MCV 90.1 81.3 - 96.4 fL [facility] MCH 29.3 27.1 - 33.3 pg [facility] MCHC 32.5 32.3 - 35.7 g/dL [facility] RDW CV 13.4 11.1 - 14.9 % [facility] RDW SD 43.9 35.7 - 48.1 fL [facility] NRBC abs 0.00 0.00 - 0.01 K/cumm [facility] Blood 01/02/2025 1:31 PM CDT 01/02/2025 1:44 PM CDT Didier Quispe MD LAB BLOOD ORDERABLES Final Res ult Performing Organization Address City/[facility] Co de Phone Number [facility] [address] Department [employer] [place] [address] * Magnesium (01/02/2025 1:31 PM CDT) [facility] Magnesium 2.3 1.4 - 2.5 mg/dL Blood 01/02/2025 1:31 PM CDT 01/02/2025 1:43 PM CDT Carolin Feng NP LAB BLOOD ORDERABLES F inal Result Performing Organization Address [facility] Co de Phone Number [facility] [address] Department [employer] [place] [address] * (ABNORMAL) Renal function panel (01/02/2025 1:31 PM CDT) Sodium 140 135 - 145 mmol/L Potassium, pl 4.1 3.3 - 4.9 mmol/L [facility] Chloride 107 97 - 110 mmol/L [facility] CO2 20(L) 22 - 32 mmol/L [facility] Anion gap 13 2 - 15 mmol/L [facility] BUN 8 6 - 25 mg/dL [facility] Creatinine 0.72 0.60 - 1.10 mg/dL [facility] Glucose 106 70 - 199 mg/dL [facility] Comment: [...] Calcium 8.1(L) 8.5 - 10.3 mg/dL [facility] Phosphorus, pl 3.0 2.3 - 4.5 mg/dL [facility] Albumin 3.8 3.5 - 5.0 g/dL [facility] Blood 01/02/2025 1:31 PM CDT 01/02/2025 1:43 PM CDT Carolin Feng COLOR ADVISER LAB BLOOD ORDERABLES F inal Result Performing Organization Address [facility] Co de Phone Number NOEMI ARECHIGA [address] [address] [employer] [place] [address] * POCT glucose (01/02/2025 12:12 PM CDT) [facility] Glucose, POC 105 70 - 199 mg/dL POC Performer [id number] [facility] Blood 01/02/2025 12:1 2 PM CDT 01/02/2025 12:12 PM CDT Didier Quispe MD LAB POCT ORDERABLES - DEVICE F inal Result Performing Organization Address [facility] Co de Phone Number NOEMI [address] [address] [place] [address] * POCT glucose (01/02/2025 10:25 AM CDT) Glucose, POC 89 70 - 199 mg/dL POC Performer [id number] [facility] Blood 01/02/2025 10:2 5 AM CDT 01/02/2025 10:25 AM CDT Didier Quispe MD LAB POCT ORDERABLES - DEVICE F inal Result Performing Organization Address [facility] Phone Number NOEMI [address] [address] [place] [address] * POCT glucose (01/02/2025 8:27 AM CDT) Glucose, POC 114 70 - 199 mg/dL POC Performer [id number] [facility] Blood 01/02/2025 8:27 AM CDT 01/02/2025 8:27 AM CDT Didier Quispe MD LAB POCT ORDERABLES - DEVICE F inal Result Performing Organization Address [facility] Phone Number [facility] [address] [facility] [place] [address] * ECG 12 lead (01/02/2025 7:22 AM CDT) 01/02/2025 7:22 AM CDT Narrative [facility] - 01/02/2025 8:00 AM CDT Vent Rate: 78 bpm RR Interval: 762 msec MI Interval: 154 msec QRS Duration: 92 msec QT Interval: 381 msec QTC Interval: 415 msec P-R-T [place]: 41 - 74 - 84 degrees IMPRESSION: SINUS RHYTHM PROBABLE INFERIOR MYOCARDIAL INFARCTION , OF INDETERMINATE AGE [35 ms Q WAVE IN II/aVF] ABNORMAL ECG Electronically Signed By: Dr. Caprice Kendrick [facility] Didier Quispe MD ECG ORDERABLES Final Result Performing Organization Address [facility] Phone Number [facility] [employer] [facility] * Critical Care (01/02/2025 6:53 AM [...] plan with the ICU team and other medical/qm consultant staff, making frequent assessments and decisions [...] monitors, laboratory results, and imaging Carolin Feng COLOR ADVISER IN CLINIC/BEDSIDE RUTH MOELLER Final Result * POCT glucose (01/02/2025 6:08 AM CDT) Glucose, POC 134 70 - 199 mg/dL POC Performer [id number] NOEM[facility] AREHCIGA Blood 01/02/2025 6:08 AM CDT 01/02/2025 6:08 AM CDT Didier Quispe MD LAB POCT ORDERABLES - DEVICE F inal Result NOEMI [address] [address] [place] [address] * XR Chest 1 View - Portable [...] tubes. Thoracostomy tubes and mediastinal drain and [place]-Lindsay catheter stable. Cardiomegaly with postsurgical changes stable. Decreasing but continued mild pulmonary vascular congestion. No pneumothorax Procedure Note Gama Harrison MD - 01/02/2025 EXAMINATION: XR CHEST 1 VIEW DATE: 01/02/2025 5:25 AM HISTORY: Cardiac surgery FINDINGS:Compared with study of the prior day, patient extubated with removal of ET and NG tubes. Thoracostomy tubes and mediastinal drain and [place]-Lindsay catheter stable. Cardiomegaly with postsurgical changes stable. Decreasing but continued mild pulmonary vascular congestion. No pneumothorax IMPRESSION: Extubation. Decreasing failure. Electronically signed by: Gama Harrison M.D. Nhi Pruett MD IMG XR PROCEDURES Final Resul t * POCT glucose (01/02/2025 5:06 AM CDT) [facility] Signature Glucose, POC 133 70 - 199 mg/dL POC Performer [id number] NOEMI ARECHIGA Blood 01/02/2025 5:06 AM CDT 01/02/2025 5:06 AM CDT Didier Quispe MD LAB POCT ORDERABLES - DEVICE F inal Result NOEMI ARECHIGA [address] [facility] [place] [address] * POCT glucose (01/02/2025 4:05 AM CDT) Glucose, POC 131 70 - 199 mg/dL POC Performer [id number] [facility] Blood 01/02/2025 4:05 AM CDT 01/02/2025 4:05 AM CDT Didier Quispe MD LAB POCT ORDERABLES - DEVICE F inal Result Performing Organization Address [facility] Co de Phone Number NOEMI ARECHIGA [address] [address] [place] [address] * Oxyhemoglobin, pulmonary artery (01/02/2025 3:13 AM CDT) Oxyhemoglobin, PA 66.2 % Comment: Interpretive Data No reference range established. Current interpretive data was last revised 2019. Blood 01/02/2025 3:13 AM CDT 01/02/2025 3:15 AM CDT Yan Perry MD LAB BLOOD ORDERABL ES Final Result Performing Organization Address [facility] Co de Phone Number NOEMI ARECHIGA [address] [address] [place] [address] * Lactate (01/02/2025 3:13 AM CDT) Lactate 1.9 0.7 - 2.0 mmol/L Blood 01/02/2025 3:13 AM CDT 01/02/2025 3:16 AM CDT Yan Perry MD LAB BLOOD ORDERABL ES Final Result Performing Organization Address [facility] Co de Phone Number NOEMI [address] [address] [place] [address] * eGFR (01/02/2025 3:13 AM CDT) Pathologist [facility] eGFR >90 >=60 mL/min/1. 73 m2 Comment: [...] MD LAB BLOOD ORDERABLES Final Re sult [facility] [address] [address] [place] [address] * (ABNORMAL) Differential, auto (01/02/2025 3:13 AM CDT) Pathologist [facility] Neutrophil abs 9.3(H) 1.5 - 6.5 K/cumm Imm gran abs 0.1 0.0 - 0.1 K/cumm [facility] Lymphocyte abs 1.0 0.8 - 3.3 K/cumm [facility] Monocyte abs 1.1(H) 0.2 - 0.8 K/cumm [facility] Eosinophil abs 0.0 0.0 - 0.5 K/cumm [facility] Basophil abs 0.0 0.0 - 0.1 K/cumm [facility] Neutrophil pct 81.3 % [facility] Comment: Interpretive Data Percent cell count reference ranges are not reported, since discordance with absolute values may lead to misinterpretation of CBC data. Current Interpretive Data was last revised on 2018. Imm gran pct 0.5 % [facility] Comment: Interpretive Data Percent cell count reference ranges are not reported, since discordance with absolute values may lead to misinterpretation of CBC data. Current Interpretive Data was last revised on 2018. Lymphocyte pct 8.7 % [facility] Comment: Interpretive Data Percent cell count reference ranges are not reported, since discordance with absolute values may lead to misinterpretation of CBC data. Current Interpretive Data was last revised on 2018. Monocyte pct 9.2 % [facility] Comment: Interpretive Data Percent cell count reference ranges are not reported, since discordance with absolute values may lead to misinterpretation of CBC data. Current Interpretive Data was last revised on 2018. Eosinophil pct 0.1 % [facility] Comment: Interpretive Data Percent cell count reference ranges are not reported, since discordance with absolute values may lead to misinterpretation of CBC data. Current Interpretive Data was last revised on 2018. Basophil pct 0.2 % [facility] Comment: Interpretive Data Percent cell count reference ranges are not reported, since discordance with absolute values may lead to misinterpretation of CBC data. Current Interpretive Data was last revised on 2018. Blood 01/02/2025 3:13 AM CDT 01/02/2025 3:17 AM CDT Nhi Pruett MD LAB BLOOD ORDERABLES Final Re sult NOEMI [address] [address] [place] [address] * (ABNORMAL) CBC with auto differential (01/02/2025 3:13 AM CDT) WBC 11.4(H) 3.8 - 9.9 K/cumm Hgb 9.9(L) 11.9 - 15.5 g/dL NO[facility]I Hct 29.2(L) 35.6 - 45.5 % [facility] Plt 191 150 - 400 K/cumm [facility] MPV 10.1 9.1 - 12.3 fL [facility] RBC 3.29(L) 3.90 - 5.20 M/cumm [facility] MCV 88.8 81.3 - 96.4 fL [facility] MCH 30.1 27.1 - 33.3 pg [facility] MCHC 33.9 32.3 - 35.7 g/dL [facility] RDW CV 13.2 11.1 - 14.9 % [facility] RDW SD 43.0 35.7 - 48.1 fL [facility] NRBC abs 0.00 0.00 - 0.01 K/cumm [facility] Blood 01/02/2025 3:13 AM CDT 01/02/2025 3:17 AM CDT Nhi Pruett MD LAB BLOOD ORDERABLES Final Re sult Performing Organization Address [facility] de Phone Number [facility] [address] [address] [employer] [place] [address] * Magnesium (01/02/2025 3:13 AM CDT) Magnesium 2.5 1.4 - 2.5 mg/dL Blood 01/02/2025 3:13 AM CDT 01/02/2025 3:17 AM CDT Nhi Pruett MD LAB BLOOD ORDERABLES Final Re sult Performing Organization Address [facility] de Phone Number [facility] [address] [address] Department [employer] [place] [address] * (ABNORMAL) Blood gas, arterial (01/02/2025 3:13 AM CDT) pH, Art 7.40 7.35 - 7.45 PCO2, Arterial 38 35 - 45 mmHg [facility] PO2, Arterial 106 83 - 108 mmHg [facility] HCO3 Art (Calculated) 24 20 - 30 mmol/L [facility] BE, art -1 mmol/L [facility] Comment: Interpretive Data No Reference Range Established Current Interpretive Data was last revised on 2017 O2 Sat Art (Measured) 98(H) 90 - 95 % [facility] Blood 01/02/2025 3:13 AM CDT 01/02/2025 3:16 AM CDT us Didier Quispe MD LAB BLOOD ORDERABLES Final Res ult [facility] [address] [address] [place] [address] * (ABNORMAL) Basic metabolic panel (01/02/2025 3:13 AM CDT) Sodium 141 135 - 145 mmol/L Potassium, pl 4.4 3.3 - 4.9 mmol/L [facility] Chloride 108 97 - 110 mmol/L [facility] CO2 23 22 - 32 mmol/L [facility] Anion gap 10 2 - 15 mmol/L [facility] BUN 9 6 - 25 mg/dL [facility] Creatinine 0.70 0.60 - 1.10 mg/dL [facility] Glucose 125 70 - 199 mg/dL [facility] Comment: Interpretive Data Fasting glucose >/= [...] 2022. Calcium 8.1(L) 8.5 - 10.3 mg/dL [facility] Blood 01/02/2025 3:13 AM CDT 01/02/2025 3:17 AM CDT us Nhi Pruett MD LAB BLOOD ORDERABLES Final Re sult [facility] [address] [address] Department [place] [address] * POCT glucose (01/02/2025 3:08 AM CDT) Glucose, POC 125 70 - 199 mg/dL POC Performer [id number] [facility] Blood 01/02/2025 3:08 AM CDT 01/02/2025 3:08 AM CDT Didier Quispe MD LAB POCT ORDERABLES - DEVICE F inal Result Performing Organization Address [facility] Co de Phone Number NOEMI ARECHIGA [address] [address] [place] [address] * POCT glucose (01/02/2025 2:03 AM CDT) Glucose, POC 129 70 - 199 mg/dL POC Performer [id number] [facility] Blood 01/02/2025 2:03 AM CDT 01/02/2025 2:03 AM CDT Didier Quispe MD LAB POCT ORDERABLES - DEVICE F inal Result Performing Organization Address [facility] Co de Phone Number NOEMI ARECHIGA [address] [facility] [place] [address] * POCT glucose (01/02/2025 1:06 AM CDT) Glucose, POC 135 70 - 199 mg/dL POC Performer [id number] [facility] Blood 01/02/2025 1:06 AM CDT 01/02/2025 1:06 AM CDT Didier Quispe MD LAB POCT ORDERABLES - DEVICE F inal Result Performing Organization Address [facility] Co de Phone Number NOEMI ARECHIGA [address] [facility] [place] [address] * POCT glucose (01/01/2025 11:57 PM CDT) Glucose, POC 147 70 - 199 mg/dL POC Performer [id number] [facility] Blood 01/01/2025 11:5 7 PM CDT 01/01/2025 11:57 PM CDT Didier Quispe MD LAB POCT ORDERABLES - DEVICE F inal Result Performing Organization Address [facility] Co de Phone Number NOEMI ARECHIGA [address] [address] [place] [address] * POCT glucose (01/01/2025 10:57 PM CDT) Glucose, POC 163 70 - 199 mg/dL POC Performer [id number] [facility] Blood 01/01/2025 10:5 7 PM CDT 01/01/2025 10:57 PM CDT Didier Quispe MD LAB POCT ORDERABLES - DEVICE F inal Result Performing Organization Address [facility] Co de Phone Number NOEMI ARECHIGA [address] [address] [place] [address] * POCT glucose (01/01/2025 9:29 PM CDT) Glucose, POC 171 70 - 199 mg/dL POC Performer [id number] [facility] Blood 01/01/2025 9:29 PM CDT 01/01/2025 9:29 PM CDT Didier Quispe MD LAB POCT ORDERABLES - DEVICE F inal Result Performing Organization Address [facility] Co de Phone Number NOEMI ARECHIGA [address] [facility] [place] [address] * Potassium, whole blood (01/01/2025 7:48 PM CDT) [facility] Potassium, bld 4.5 3.3 - 4.9 mmol/L Comment: Interpretive Data This method is not able to assess for hemolysis, which may falsely increase potassium concentrations. If further testing is needed to evaluate this result, consider in-laboratory plasma potassium. Current Interpretive Data was last revised on 2022. Blood 01/01/2025 7:48 PM CDT 01/01/2025 8:08 PM CDT us Aly Suero NP LAB BLOOD ORDERABLES Fi nal Result Performing Organization Address City/[facility]/ZIP Co de Phone Number NOEMI [address] [address] [employer] [place], [place] [address] * Calcium, ionized, whole blood (01/01/2025 7:48 PM CDT) Ca, ionized, bld 4.54 4.50 - 5.10 mg/dL Blood 01/01/2025 7:48 PM CDT 01/01/2025 7:50 PM CDT us Yan Perry MD LAB BLOOD ORDERABL ES Final Result Performing Organization Address [facility] Co de Phone Number NOEMI [address] [address] [employer] [place] [address] * eGFR (01/01/2025 7:48 PM [...] ORDERABL ES Final Result Performing Organization Address City/[facility]/ZIP Co de Phone Number NOEMI [address] [employer] [place] [address] * (ABNORMAL) CBC without differential (01/01/2025 7:48 PM CDT) WBC 15.2(H) 3.8 - 9.9 K/cumm Hgb 10.7(L) 11.9 - 15.5 g/dL [facility] Hct 32.4(L) 35.6 - 45.5 % [facility] Plt 210 150 - 400 K/cumm [facility] MPV 10.0 9.1 - 12.3 fL [facility] RBC 3.57(L) 3.90 - 5.20 M/cumm [facility] MCV 90.8 81.3 - 96.4 fL [facility] MCH 30.0 27.1 - 33.3 pg [facility] MCHC 33.0 32.3 - 35.7 g/dL [facility] RDW CV 13.2 11.1 - 14.9 % [facility] RDW SD 43.5 35.7 - 48.1 fL [facility] NRBC abs 0.00 0.00 - 0.01 K/cumm [facility] Blood 01/01/2025 7:48 PM CDT 01/01/2025 7:51 PM CDT us Yan Perry MD LAB BLOOD ORDERABL ES Final Result Performing Organization Address City/[facility]/ZIP Co de Phone Number NOEMI ARECHIGA [address] Department [place] [address] * Magnesium (01/01/2025 7:48 PM CDT) Magnesium 2.4 1.4 - 2.5 mg/dL Blood 01/01/2025 7:48 PM CDT 01/01/2025 7:51 PM CDT us Yan Perry MD LAB BLOOD ORDERABL ES Final Result Performing Organization Address City/[facility]/[place] [address] [address] Department [place] [address] * (ABNORMAL) Blood gas, arterial (01/01/2025 7:48 PM CDT) Pathologist [facility] pH, Art 7.33(L) 7.35 - 7.45 PCO2, Arterial 46(H) 35 - 45 mmHg [facility] PO2, Arterial 197(H) 83 - 108 mmHg [...] ORDERABLES Final Re sult Performing Organization Address City/[facility]/ZIP Co de Phone Number NOEMI ARECHIGA [address] [place] [address] * (ABNORMAL) Basic metabolic panel (01/01/2025 7:48 PM CDT) Pathologist [facility] Sodium 140 135 - 145 mmol/L Potassium, [...] 2022. Calcium 8.1(L) 8.5 - 10.3 mg/dL [facility] Blood 01/01/2025 7:48 PM CDT 01/01/2025 7:51 PM CDT us Yan Perry MD LAB BLOOD ORDERABL ES Final Result Performing Organization Address [facility] Co de Phone Number NOEMI [address] Department [employer] [place] [address] * POCT glucose (01/01/2025 7:46 PM CDT) Glucose, POC 156 70 - 199 mg/dL POC Performer [id number] [facility] Blood 01/01/2025 7:46 PM CDT 01/01/2025 7:46 PM CDT us Didier Quispe MD LAB POCT ORDERABLES - DEVICE F inal Result Performing Organization Address City/[facility]/ZIP Co de Phone Number NOEMI [address] [place] [address] * Critical Care (01/01/2025 7:43 PM CDT) Narrative Ramsey Garcia MD - 01/01/2025 7:43 PM CDT Ramsey Garcia MD 01/02/2025 5:37 AM Critical Care Performed by: Aly Suero NP Authorized by: Aly Suero NP CRITICAL CARE: Team: ABDIAS Shift: PM Level of Billing: Critical Care [...] plan with the ICU team and other medical/qm consultant staff, making frequent assessments and decisions [...] documenting in the medical record Aly Suero NP IN CLINIC/BEDSIDE ORDER DMITRI Final Result * POCT glucose (01/01/2025 6:15 PM CDT) Glucose, POC 110 70 - 199 mg/dL POC Performer [id number] [facility] Blood 01/01/2025 6:15 PM CDT 01/01/2025 6:15 PM CDT Didier Quispe MD LAB POCT ORDERABLES - DEVICE F inal Result Performing Organization Address [facility] Phone Number NOEMI [address] [place] [address] * POCT glucose (01/01/2025 5:16 PM CDT) Glucose, POC 108 70 - 199 mg/dL POC Performer [id number] [facility] Blood 01/01/2025 5:16 PM CDT 01/01/2025 5:16 PM CDT Didier Quispe MD LAB POCT ORDERABLES - DEVICE F inal Result Performing Organization Address [facility]/ZIP Co de Phone Number NOEMI ARECHIGA [address] [place] [address] * POCT glucose (01/01/2025 4:05 PM CDT) Glucose, POC 95 70 - 199 mg/dL POC Performer [id number] NOEMI Blood 01/01/2025 4:05 PM CDT 01/01/2025 4:05 PM CDT us Didier Quispe MD LAB POCT ORDERABLES - DEVICE F inal Result Performing Organization Address [facility] Co de Phone Number NOEMI ARECHIGA [address] [place] [address] * XR Chest 1 View - Portable [...] in good position. The tip of the [place]say catheter is in the proximal right main [...] in good position. The tip of the [place] catheter is in the proximal right main pulmonary artery. Bilateral thoracostomy tubes and mediastinal drain in place. Borderline cardiomegaly. No failure. Allowing for the poor inspiration there is no active infiltrate. IMPRESSION: No failure. Electronically signed by: Nilson Solomon M.D. Nhi Pruett MD IMG XR PROCEDURES Final Resul t * (ABNORMAL) Lactate (01/01/2025 3:41 PM CDT) Lactate 2.9(H) 0.7 - 2.0 mmol/L Blood 01/01/2025 3:41 PM CDT 01/01/2025 3:54 PM CDT Didier Quispe MD LAB BLOOD ORDERABLES Final Res ult Performing Organization Address [facility] Co de Phone Number NOEMI ARECHIGA [address] [place] [address] * Calcium, ionized, whole blood (01/01/2025 3:41 PM CDT) Ca, ionized, bld 4.65 4.50 - 5.10 mg/dL Blood 01/01/2025 3:41 PM CDT 01/01/2025 3:48 PM CDT Didier Quispe MD LAB BLOOD ORDERABLES Final Res ult Performing Organization Address [facility] de Phone Number NOEMI [address] [place] [address] * Phosphorus (01/01/2025 3:41 PM CDT) Phosphorus, pl 3.4 2.3 - 4.5 mg/dL Blood 01/01/2025 3:41 PM CDT 01/01/2025 3:48 PM CDT Didier Quispe MD LAB BLOOD ORDERABLES Final Res ult Performing Organization Address [facility] Co de Phone Number NOEMI [address] Department [employer] [place] [phone] * Magnesium (01/01/2025 3:41 PM CDT) Magnesium 2.4 1.4 - 2.5 mg/dL Blood 01/01/2025 3:41 PM CDT 01/01/2025 3:48 PM CDT Didier Quispe MD LAB BLOOD ORDERABLES Final Res ult Performing Organization Address [facility] Co de Phone Number NOEMI ARECHIGA [address] [place] [address] * eGFR (01/01/2025 3:40 PM CDT) eGFR >90 >=60 mL/min/1. 73 [...] ORDERABLES Final Re sult Performing Organization Address [facility]/ZIP Co de Phone Number NOEMI [address] Department [place] [address] * aPTT (01/01/2025 3:40 PM CDT) aPTT [...] ORDERABLES Final Re sult Performing Organization Address City/[facility]/ZIP Co de Phone Number NOEMI [address] [employer] [place] [address] * (ABNORMAL) Protime-INR (01/01/2025 3:40 PM CDT) PT 13.4(H) 9.7 - 13.0 sec INR 1.24(H) 0.90 - 1.20 NOEMI Comment: Interpretive data Oral anticoagulant therapeutic ranges: Venous thromboembolism prophylaxis or treatment: 2.0-3.0 CARDIOLOGY Standard range: 2.0-3.0 High-intensity range: 2.5-3.5 Refer to indication-specific guidelines for appropriate target ranges for prosthetic heart valve replacement. Current interpretive data was last revised on 2019. Blood 01/01/2025 3:40 PM CDT 01/01/2025 3:50 PM CDT Nhi Pruett MD LAB BLOOD ORDERABLES Final Re sult Performing Organization Address City/[facility]/ZIP Co de Phone Number NOEMI [address] [employer] [place] [address] * (ABNORMAL) CBC without differential (01/01/2025 3:40 PM CDT) WBC 16.8(H) 3.8 - 9.9 K/cumm Hgb 11.1(L) 11.9 - 15.5 g/dL [facility] Hct 32.9(L) 35.6 - 45.5 % [facility] Plt 220 150 - 400 K/cumm [facility] MPV 9.8 9.1 - 12.3 fL [facility] RBC 3.71(L) 3.90 - 5.20 M/cumm [facility] MCV 88.7 81.3 - 96.4 fL [facility] MCH 29.9 27.1 - 33.3 pg [facility] MCHC 33.7 32.3 - 35.7 g/dL [facility] RDW CV 13.2 11.1 - 14.9 % [facility] RDW SD 42.7 35.7 - 48.1 fL [facility] NRBC abs 0.00 0.00 - 0.01 K/cumm [facility] Blood 01/01/2025 3:40 PM CDT 01/01/2025 3:50 PM CDT Nhi Pruett MD LAB BLOOD ORDERABLES Final Re sult Performing Organization Address [facility] de Phone Number NOEMI ARECHIGA [address] Department [employer] [place] [address] * (ABNORMAL) Blood gas, arterial (01/01/2025 3:40 [...] ORDERABLES Final Re sult Performing Organization Address [facility] Co de Phone Number NOEMI HAWK [address] [place] [address] * (ABNORMAL) Basic metabolic panel (01/01/2025 3:40 PM CDT) Sodium 140 135 - 145 mmol/L Potassium, pl 5.0(H) 3.3 - 4.9 mmol/L C[facility]ER Chloride 110 97 - 110 mmol/L CERNER [...] LAB BLOOD ORDERABLES Final Re sult NOEMI [address] [place] [address] * POCT glucose (01/01/2025 3:06 PM CDT) Glucose, POC 122 70 - 199 mg/dL POC Performer [id number] [facility] Blood 01/01/2025 3:06 PM CDT 01/01/2025 3:06 PM CDT Didier Quispe MD LAB POCT ORDERABLES - DEVICE F inal Result [facility] [address] [place] [address] * Critical Care (01/01/2025 3:05 PM CDT) [...] plan with the ICU team and other medical/qm consultant staff, making frequent assessments and decisions [...] Chemistries, Arterial - (01/01/2025 2:38 PM CDT) Pathologist [facility] pH, Art POC 7.37 7.35 - 7.45 [...] 2:38 PM CDT 01/01/2025 2:38 PM CDT Didier Quispe MD LAB POCT ORDERABLES - DEVICE F inal Result [facility] [address] [place] [address] * (ABNORMAL) POC Blood Gas [...] POCT ORDERABLES - DEVICE Final Result NOEMI [address] [place] [address] * (ABNORMAL) POC Blood Gas [...] - DEVICE Final Result Performing Organization Address [facility] Co de Phone Number NOEMI ARECHIGA [address] Department [employer] [place] [address] * POC Activated Clotting Time, High Range (01/01/2025 1:43 PM CDT) Pathologist [facility] ACT 93 87 - 138 sec POC Performer [id number] [facility] Blood 01/01/2025 1:43 PM CDT 01/01/2025 1:43 PM CDT Nhi Pruett MD LAB BLOOD ORDERABLES Final Re sult Performing Organization Address City/[facility]/ZIP Co de Phone Number NOEMI ARECHIGA [address] Department [employer] [place] [address] * (ABNORMAL) POC Blood Gas and Chemistries, Arterial - (01/01/2025 1:00 PM CDT) Pathologist [facility] pH, Art POC 7.39 7.35 - 7.45 [...] - DEVICE Final Result Performing Organization Address City/[facility]/ZIP Co de Phone Number NOEMI ARECHIGA [address] [employer] [place] [address] * (ABNORMAL) POC Activated Clotting Time, High Range (01/01/2025 12:58 PM CDT) ACT 603(H) 87 - 138 sec POC Performer [id number] [facility] Blood 01/01/2025 12:5 8 PM CDT 01/01/2025 12:58 PM CDT Nhi Pruett MD LAB BLOOD ORDERABLES Final Re sult NOEMI ARECHIGA [address] Department [employer] [place] [address] * Platelet count (01/01/2025 12:50 PM CDT) Plt 241 150 - 400 K/cumm Blood 01/01/2025 12:5 0 PM CDT 01/01/2025 12:57 PM CDT Narrative [facility] - 01/01/2025 1:03 PM CDT Please call results to ext. [phone]. Thanks. us Didier Quispe MD LAB BLOOD ORDERABLES Final Res ult CERNER [address] [place] [address] * (ABNORMAL) POC Blood Gas and Chemistries, [...] 5 PM CDT 01/01/2025 12:35 PM CDT Nhi Pruett MD LAB POCT ORDERABLES - DEVICE Final Result Performing Organization Address [facility]/ZIP Co de Phone Number NOEMI ARECHIGA [address] [place] [address] * (ABNORMAL) POC Activated Clotting Time, High Range (01/01/2025 12:32 PM CDT) ACT 514(H) 87 - 138 sec POC Performer [id number] [facility] Blood 01/01/2025 12:3 2 PM CDT 01/01/2025 12:32 PM CDT Nhi Pruett MD LAB BLOOD ORDERABLES Final Re sult Performing Organization Address City/[facility] Co de Phone Number NOEMI ARECHIGA [address] Department [place] [address] * (ABNORMAL) POC Blood Gas and Chemistries, [...] - DEVICE Final Result Performing Organization Address [facility]/ZIP Co de Phone Number NOEMI ARECHIGA [address] Department [address] [employer] [place], [place] [address] * (ABNORMAL) POC Activated Clotting Time, High Range (01/01/2025 12:04 PM CDT) ACT 570(H) 87 - 138 sec POC Performer [id number] [facility] Blood 01/01/2025 12:0 4 PM CDT 01/01/2025 12:04 PM CDT Nhi Pruett MD LAB BLOOD ORDERABLES Final Re sult Performing Organization Address City/[facility]/ZIP Co de Phone Number TARALAURA ARECHIGA [address] Department [place] [address] * (ABNORMAL) POC Blood Gas and Chemistries, [...] ORDERABLES - DEVICE Final Result NOEMI ARECHIGA [address] [employer] [place] [address] * (ABNORMAL) POC Activated Clotting Time, High Range (01/01/2025 11:46 AM CDT) ACT 698(H) 87 - 138 sec POC Performer [id number] [facility] CH Blood 01/01/2025 11:4 6 AM CDT 01/01/2025 11:46 AM CDT Nhi Pruett MD LAB BLOOD ORDERABLES Final Re sult TARALAURA ARECHIGA [address] Department [place] [address] * (ABNORMAL) POC Activated Clotting Time, High Range (01/01/2025 10:50 AM CDT) ACT 564(H) 87 - 138 sec POC Performer [id number] TARALAURA HAWK Blood 01/01/2025 10:5 0 AM CDT 01/01/2025 10:50 AM CDT us Nhi Pruett MD LAB BLOOD ORDERABLES Final Re sult NOEMI ARECHIGA [address] [place] [address] * BW AN SHEATH INTRODUCER PERFORMABLE, PULMONARY [...] complications Additional comments: Placed by Lucia LOUIS us Fifi Keys MD ANESTHESIA ORDERABLES Final Resu lt * MI AN ELECTIVE ENDOTRACHEAL AIRWAY (01/01/2025 10:02 AM [...] Hb, POC 13.2 11.9 - 15.5 g/dL [facility] Blood 01/01/2025 9:44 AM CDT 01/01/2025 9:44 AM CDT us Nhi Pruett MD LAB POCT ORDERABLES - DEVICE Final Result NOEMI HAWK [address] Department [employer] [place], [place] [address] * POC Activated Clotting Time, High Range (01/01/2025 9:41 AM CDT) ACT 90 87 - 138 sec POC Performer [id number] [facility] Blood 01/01/2025 9:41 AM CDT 01/01/2025 9:41 AM CDT us Nhi Pruett MD LAB BLOOD ORDERABLES Final Re sult NOEMI ARECHIGA [address] Department [place] [address] * DEISI (01/01/2025 9:40 AM CDT) Anatomical [...] inferior: normal 16- Apical septal: normal 17- [place]: normal Valves: Aortic Valve: Annulus: normal Leaflet [...] no complications Additional comments: Placed by Елена LOUIS us Fifi Keys MD ANESTHESIA ORDERABLES Final [...] DO LAB BLOOD ORDERABLES Pricila mayen Result [facility] [address] [place] [address] * CBC without differential (01/01/2025 3:53 AM CDT) WBC 8.3 3.8 - 9.9 K/cumm Hgb 13.4 11.9 - 15.5 g/dL [facility] Hct 41.4 35.6 - 45.5 % [facility] Plt 250 150 - 400 K/cumm [facility] MPV 9.7 9.1 - 12.3 fL [facility] RBC 4.63 3.90 - 5.20 M/cumm [facility] MCV 89.4 81.3 - 96.4 fL [facility] MCH 28.9 27.1 - 33.3 pg CERNER MCHC 32.4 32.3 - 35.7 g/dL [facility] RDW CV 13.0 11.1 - 14.9 % [facility] RDW SD 42.4 35.7 - 48.1 fL [facility] NRBC abs 0.00 0.00 - 0.01 K/cumm [facility] Blood 01/01/2025 3:53 AM CDT 01/01/2025 4:13 AM CDT Gus Higgins DO LAB BLOOD ORDERABLES Pricila l Result NOEMI ARECHIGA [address] [place] [address] * Basic metabolic panel (01/01/2025 3:53 AM [...] Calcium 8.9 8.5 - 10.3 mg/dL [facility] Blood 01/01/2025 3:53 AM CDT 01/01/2025 4:13 AM CDT Gus Higgins DO LAB BLOOD ORDERABLES Pricila l Result NOEMI ARECHIGA [address] Department [employer] [place] [address] * Check Sample (12/31/2024 10:02 AM CDT) ABO Rh A Positive CH HCLL OTHER 12/31/2024 10:0 2 AM CDT 12/31/2024 10:15 AM CDT Nhi Pruett MD LAB BLOOD ORDERABLES Final Re sult Performing Organization Address City/[facility] Co de Phone Number NOEMI ARECHIGA [address] [facility] [place] [address] CH * Type and screen (12/31/2024 9:16 AM CDT) Luis E, indirect Negative ABO Rh A Positive [facility] Blood 12/31/2024 9:16 AM CDT 12/31/2024 9:47 AM CDT Narrative [facility] CH - 12/31/2024 10:35 AM CDT Has the patient had Daratumumab or Isatuximab in the past 6 months?->Unknown Herrera Lin COLOR ADVISER LAB BLOOD BANK TEST ORDERA BLES Final Result Performing Organization Address [facility] Co de Phone Number NOEMI ARECHIGA [address] Department [place] [address] * Prepare RBC: 4 Units (12/31/2024 8:44 AM CDT) Pathologist [facility] Product code [id number] [facility] CH Unit Number [id number] 5-[id number] [facility] Product Blood Type APOS [facility] CH Dispense Status RETURNED [facility]ER CH Product code [id number] [facility] CH Unit Number [id number] 0-T [facility] CH Product Blood Type APOS CERNER CH Dispense Status RETURNED [facility] CH Product code [id number] Unit Number [id number] [id number] [facility] CH Product Blood Type APOS C[facility]ER CH Dispense Status RETURNED [facility] CH Product code [id number] [facility] CH Unit Number [id number] 2-E [facility] CH Product Blood Type APOS [facility] CH Dispense Status RETURNED [facility] CH Blood 12/31/2024 8:44 AM CDT Narrative [facility] CH - 01/04/2025 12:21 AM CDT Specify Procedure:->CABG Are special requirements needed? (All products are leukoreduced and CMV- safe)- >No Date required:-[id number] LRRBC # of [id number] Reasons:-Hold for procedure (specify procedure)} Herrera Lin COLOR ADVISER BLOOD BANK PRODUCT ORDERAB LES Final Result NOEMI ARECHIGA [address] Department [employer] [place] [address] * eGFR (12/31/2024 5:56 AM CDT) Pathologist [facility] eGFR >90 >=60 mL/min/1. 73 m2 Comment: [...] BLOOD ORDERABLES Pricila l Result NOEMI ARECHIGA [address] Department [employer] [place] [address] * CBC without differential (12/31/2024 5:56 AM CDT) Pathologist [facility] WBC 7.9 3.8 - 9.9 K/cumm Hgb 13.9 11.9 - 15.5 g/dL [facility] Hct 41.8 35.6 - 45.5 % [facility] Plt 258 150 - 400 K/cumm [facility] MPV 10.0 9.1 - 12.3 fL [facility] RBC 4.70 3.90 - 5.20 M/cumm [facility] MCV 88.9 81.3 - 96.4 fL [facility] MCH 29.6 27.1 - 33.3 pg [facility] MCHC 33.3 32.3 - 35.7 g/dL [facility] RDW CV 13.1 11.1 - 14.9 % [facility] RDW SD 42.7 35.7 - 48.1 fL [facility] NRBC abs 0.00 0.00 - 0.01 K/cumm [facility] Blood 12/31/2024 5:56 AM CDT 12/31/2024 6:29 AM CDT Gus Higgins DO LAB BLOOD ORDERABLES Pricila l Result [facility] [address] [place] [address] * Basic metabolic panel (12/31/2024 5:56 AM CDT) Sodium 138 135 - 145 mmol/L Potassium, pl 4.2 3.3 - 4.9 mmol/L [facility] Chloride 105 97 - 110 mmol/L [facility] CO2 23 22 - 32 mmol/L [facility] Anion gap 10 2 - 15 mmol/L [facility] BUN 11 6 - 25 mg/dL [facility] Creatinine 0.78 0.60 - 1.10 mg/dL [facility] Glucose 98 70 - 199 mg/dL [facility] Comment: Interpretive Data Fasting glucose >/= [...] 2022. Calcium 9.0 8.5 - 10.3 mg/dL [facility] Blood 12/31/2024 5:56 AM CDT 12/31/2024 6:28 AM CDT Gus Higgins DO LAB BLOOD ORDERABLES Pricila l Result Performing Organization Address City/[facility]/[place] [address] [address] Department [place] [address] * (ABNORMAL) Urinalysis reflex to microscopic and [...] for uric acid stone formation. Source: [facility] Current Interpretive Data was last revised on [...] to microscopic UA will be performed. [facility] Urine, clean voided 12/30/2024 6:44 PM CDT 12/30/2024 6:49 PM CDT Herrera Lin COLOR ADVISER LAB MICROBIOLOGY - GENERAL ORDERABLES Final Result NOEMI ARECHIGA [address] Department [employer] [place] [address] * hCG, urine, qualitative (12/30/2024 6:44 PM CDT) [facility] HCG, ur Negative Negative Urine 12/30/2024 6:44 PM CDT 12/30/2024 6:50 PM CDT Herrera Lin LAB URINE ORDERABLES Final Result Performing Organization Address [facility] Co de Phone Number NOEMI ARECHIGA [address] [facility] [place] [address] * (ABNORMAL) Urinalysis, microscopic only (12/30/2024 6:44 PM CDT) [facility] WBC, ur 0-5 0 - 5 /HPF RBC, ur 0-2 0 - 2 /HPF [facility] Epithelial cells, squamous, ur 1-5 0 - 5 /HPF [facility] Bacteria, ur Trace(A) [facility] Mucous, ur Present(A) [facility] Culture Reflex Comment Reflex conditions for urine culture (WBC >10) not met. [facility] Urine, clean voided 12/30/2024 6:44 PM CDT 12/30/2024 6:49 PM CDT Herrera Lin LAB URINE ORDERABLES Final Result Performing Organization Address [facility] de Phone Number NOEMI HAWK [address] [facility] [place] [address] * eGFR (12/30/2024 3:25 AM CDT) [facility] eGFR >90 >=60 mL/min/1. 73 m2 [...] ORDERABLES Pricila l Result Performing Organization Address City/[facility]/ZIP Co de Phone Number [facility] [address] [place] [address] * CBC without differential (12/30/2024 3:25 AM CDT) WBC 7.9 3.8 - 9.9 K/cumm Hgb 13.1 11.9 - 15.5 g/dL [facility] Hct 39.9 35.6 - 45.5 % [facility] Plt 240 150 - 400 K/cumm [facility] MPV 10.1 9.1 - 12.3 fL [facility] RBC 4.42 3.90 - 5.20 M/cumm [facility] MCV 90.3 81.3 - 96.4 fL [facility] MCH 29.6 27.1 - 33.3 pg [facility] MCHC 32.8 32.3 - 35.7 g/dL [facility] RDW CV 12.9 11.1 - 14.9 % [facility] RDW SD 42.6 35.7 - 48.1 fL [facility] NRBC abs 0.00 0.00 - 0.01 K/cumm [facility] Blood 12/30/2024 3:25 AM CDT 12/30/2024 4:13 AM CDT Gus Higgins DO LAB BLOOD ORDERABLES Pricila l Result NOEMI ARECHIGA [address] [place] [address] * Hemoglobin A1c (12/30/2024 3:25 AM CDT) Hgb A1C 5.5 4.0 - 5.6 % Estimated Average Glucose 111 mg/dL [facility] Comment: The ADA recommends reporting an estimated Average Glucose (eAG) with all Hemoglobin A1c results using the equation derived from a study of 507 normal and diabetic adults. Minority populations were underrepresented and children were not included. (Diabetes Care 31:1913-9505, 2008). The eAG is not equivalent to a fasting glucose. Blood 12/30/2024 3:25 AM CDT 12/30/2024 4:13 AM CDT Herrera Lin NP LAB BLOOD ORDERABLES Final Result Performing Organization Address [facility] Phone Number NOEMI ARECHIGA [address] [place] [address] * Basic metabolic panel (12/30/2024 3:25 AM CDT) Pathologist [facility] Sodium 140 135 - 145 mmol/L Potassium, pl 3.7 3.3 - 4.9 mmol/L [facility] Chloride 106 97 - 110 mmol/L [facility] CO2 22 22 - 32 mmol/L [facility] Anion gap 12 2 - 15 mmol/L [facility] BUN 11 6 - 25 mg/dL [facility] Creatinine 0.76 0.60 - 1.10 mg/dL [facility] Glucose 98 70 - 199 mg/dL [facility] Comment: Interpretive Data Fasting glucose >/= [...] 2022. Calcium 8.9 8.5 - 10.3 mg/dL NOEMI Blood 12/30/2024 3:25 AM CDT 12/30/2024 4:13 AM CDT us Gus Higgins DO LAB BLOOD ORDERABLES Pricila mayen Result NOEMI [address] Department of Laboratories [place] [id number] * TRANSTHORACIC ECHO (TTE) COMPLETE W DOPPLER/CF WO CONTRAST (12/29/2024 12:45 PM CDT) Anatomical Region Laterality Modality Ultrasound 12/29/2024 11:1 5 AM CDT Narrative 12/29/2024 2:45 [place] [address] Echocardiogram Report Patient Name: PREM KAUR L : 1980 Study Date: 12/29/2024 11:15:21 AM Gender: F [facility]: Location: [id number] Ref Provider: HERRERA LIN Height(Cm): 175 BSA: 2.38 [...] Procedure Note Brittani Lomeli MD - 12/29/2024 [place] [address] Echocardiogram Report Patient Name: PREM KAUR L : 1980 Study Date: 12/29/2024 11:15:21 AM Gender: F [facility]: Location: [id number] Ref Provider: HERRERA LIN Height(Cm): 175 BSA: 2.38 [...] Brittani Lomeli MD 12/29/2024 2:44:43 PM CDT Herrera Lin NP CV ECHO PROCEDURES Final [...] AM CDT 12/29/2024 5:17 AM CDT [facility] Pricila l Result Performing Organization Address [facility] Co de Phone Number NOEMI ARECHIGA [address] [employer] [place] [address] * CBC without differential (12/29/2024 4:11 AM CDT) WBC 7.6 3.8 - 9.9 K/cumm Hgb 12.9 11.9 - 15.5 g/dL [facility] Hct 39.1 35.6 - 45.5 % [facility] Plt 227 150 - 400 K/cumm [facility] MPV 10.0 9.1 - 12.3 fL [facility] RBC 4.32 3.90 - 5.20 M/cumm [facility] MCV 90.5 81.3 - 96.4 fL [facility] MCH 29.9 27.1 - 33.3 pg [facility] MCHC 33.0 32.3 - 35.7 g/dL [facility] RDW CV 13.0 11.1 - 14.9 % [facility] RDW SD 42.8 35.7 - 48.1 fL [facility] NRBC abs 0.00 0.00 - 0.01 K/cumm [facility] Blood 12/29/2024 4:11 AM CDT 12/29/2024 5:15 AM CDT Gus Higgins LAB BLOOD ORDERABLES Pricila l Result Performing Organization Address [facility] Co de Phone Number NOEMI ARECHIGA [address] [employer] [place] [address] * (ABNORMAL) Basic metabolic panel (12/29/2024 4:11 AM CDT) Sodium 141 135 - 145 mmol/L Potassium, pl 4.0 3.3 - 4.9 mmol/L [facility] Chloride 108 97 - 110 mmol/L [facility] CO2 21(L) 22 - 32 mmol/L [facility] Anion gap 12 2 - 15 mmol/L [facility] BUN 9 6 - 25 mg/dL [facility] Creatinine 0.77 0.60 - 1.10 mg/dL [facility] Glucose 94 70 - 199 mg/dL [facility] Comment: Interpretive Data Fasting glucose >/= [...] 2022. Calcium 8.8 8.5 - 10.3 mg/dL [facility] Blood 12/29/2024 4:11 AM CDT 12/29/2024 5:17 AM CDT Gus Higgins DO LAB BLOOD ORDERABLES Pricila l Result [facility] [address] [place] [address] * Troponin T high-sensitivity 6-hour (12/28/2024 12:42 AM CDT) Trop T hs 13 <=14 ng/L Comment: Interpretive Data For further hscTnT resources including the diagnostic algorithm and an aid in interpretation, copy and paste this link: https://nrl.testcatalog.org/show/hsTrop Current Interpretive Data last revised 2020. Trop T hs delta 1 ng/L [facility] Trop T hs interp Insignificant [facility] Blood 12/28/2024 12:4 2 AM CDT 12/28/2024 12:49 AM CDT Mabel Mindy Rodriguez COLOR ADVISER LAB BLOOD ORDERABLES Final Result Performing Organization Address [facility]/ZIP Co de Phone Number NOEMI ARECHIGA [address] [facility] [place] [address] * Phosphorus (12/28/2024 12:42 AM CDT) Phosphorus, pl 3.1 2.3 - 4.5 mg/dL Blood 12/28/2024 12:4 2 AM CDT 12/28/2024 4:25 PM CDT Gus Higgins LAB BLOOD ORDERABLES Pricila l Result Performing Organization Address [facility] de Phone Number NOEMI ARECHIGA [address] [facility] [place] [address] * Magnesium (12/28/2024 12:42 AM CDT) Magnesium 2.2 1.4 - 2.5 mg/dL Blood 12/28/2024 12:4 2 AM CDT 12/28/2024 4:25 PM CDT Gsu Higgins LAB BLOOD ORDERABLES Pricila l Result Performing Organization Address [facility] Co de Phone Number NOEMI ARECHIGA [address] [place] [address] * Troponin T high-sensitivity 4-hour (12/27/2024 10:25 PM CDT) Trop T hs 12 <=14 ng/L Comment: Interpretive Data For further hscTnT resources including the diagnostic algorithm and an aid in interpretation, copy and paste this link: https://nrl.testcatalog.org/show/hsTrop Current Interpretive Data last revised 2020. Trop T hs delta 0 ng/L [facility] Trop T hs interp Insignificant [facility] Blood 12/27/2024 10:2 5 PM CDT 12/27/2024 10:29 PM CDT us Mabel Rodriguez COLOR ADVISER LAB BLOOD ORDERABLES Final Result Performing Organization Address [facility] Co de Phone Number NOEMI ARECHIGA [address] [facility] [place] [address] * Troponin T high-sensitivity 2-hour (12/27/2024 8:37 PM CDT) Trop T hs 13 <=14 ng/L Comment: Interpretive Data For further hscTnT resources including the diagnostic algorithm and an aid in interpretation, copy and paste this link: https://nrl.Instacover.org/show/hsTrop Current Interpretive Data last revised 2020. Trop T hs delta 1 ng/L [facility] Trop T hs interp Insignificant [facility] Blood 12/27/2024 8:37 PM CDT 12/27/2024 8:44 PM CDT Mabel Rodriguez LAB BLOOD ORDERABLES Final Result Performing Organization Address [facility] Co de Phone Number NOEMI ARECHIGA [address] [facility] [place] [address] * Troponin T high-sensitivity series (baseline, 2hr, 4hr, 6hr) (12/27/2024 6:48 PM CDT) Trop T hs 12 <=14 ng/L Comment: Interpretive Data For further hscTnT resources including the diagnostic algorithm and an aid in interpretation, copy and paste this link: https://nrl.Instacover.org/show/hsTrop Current Interpretive Data last revised 2020. Blood 12/27/2024 6:48 PM CDT 12/27/2024 6:53 PM CDT us Mabel Rodriguez COLOR ADVISER LAB BLOOD ORDERABLES Final Result Performing Organization Address City/[facility] Co de Phone Number NOEMI ARECHIGA [address] [place] [address] * eGFR (12/27/2024 6:48 PM CDT) eGFR [...] 6:48 PM CDT 12/27/2024 6:54 PM CDT Mabel Rodriguez COLOR ADVISER LAB BLOOD ORDERABLES Final Result Performing Organization Address City/[facility] Co de Phone Number NOEMI ARECHIGA [address] [place] [address] * Differential, auto (12/27/2024 6:48 PM CDT) Neutrophil abs 6.4 1.5 - 6.5 K/cumm Imm gran abs 0.0 0.0 - 0.1 K/cumm [facility] Lymphocyte abs 1.7 0.8 - 3.3 K/cumm [facility] Monocyte abs 0.7 0.2 - 0.8 K/cumm [facility] Eosinophil abs 0.1 0.0 - 0.5 K/cumm [facility] Basophil abs 0.0 0.0 - 0.1 K/cumm NOEMI Neutrophil pct 70.9 % [facility] Comment: Interpretive Data Percent cell count reference ranges are not reported, since discordance with absolute values may lead to misinterpretation of CBC data. Current Interpretive Data was last revised on 2018. Imm gran pct 0.4 % NOEMI Comment: Interpretive Data Percent cell count reference ranges are not reported, since discordance with absolute values may lead to misinterpretation of CBC data. Current Interpretive Data was last revised on 2018. Lymphocyte pct 19.3 % NOEMI Comment: Interpretive Data Percent cell count reference ranges are not reported, since discordance with absolute values may lead to misinterpretation of CBC data. Current Interpretive Data was last revised on 2018. Monocyte pct 7.4 % NOEMI Comment: Interpretive Data Percent cell count reference ranges are not reported, since discordance with absolute values may lead to misinterpretation of CBC data. Current Interpretive Data was last revised on 2018. Eosinophil pct 1.6 % NOEMI Comment: Interpretive Data Percent cell count reference ranges are not reported, since discordance with absolute values may lead to misinterpretation of CBC data. Current Interpretive Data was last revised on 2018. Basophil pct 0.4 % NOEMI Comment: Interpretive Data Percent cell count reference ranges are not reported, since discordance with absolute values may lead to misinterpretation of CBC data. Current Interpretive Data was last revised on 2018. Blood 12/27/2024 6:48 PM CDT 12/27/2024 6:53 PM CDT us Mabel Rodriguez NP LAB BLOOD ORDERABLES Final Result NOEMI [address] [place] [address] * CBC with auto differential (12/27/2024 6:48 PM CDT) WBC 9.0 3.8 - 9.9 K/cumm Hgb 12.4 11.9 - 15.5 g/dL NOEMI Hct 37.6 35.6 - 45.5 % [facility] Plt 211 150 - 400 K/cumm [facility] MPV 9.8 9.1 - 12.3 fL [facility] RBC 4.20 3.90 - 5.20 M/cumm [facility] MCV 89.5 81.3 - 96.4 fL [facility] MCH 29.5 27.1 - 33.3 pg [facility] MCHC 33.0 32.3 - 35.7 g/dL [facility] RDW CV 13.1 11.1 - 14.9 % [facility] RDW SD 42.6 35.7 - 48.1 fL [facility] NRBC abs 0.00 0.00 - 0.01 K/cumm [facility] Blood 12/27/2024 6:48 PM CDT 12/27/2024 6:53 PM CDT Mabel Rodriguez NP LAB BLOOD ORDERABLES Final Result [facility] [address] Department [place] [address] * (ABNORMAL) Comprehensive metabolic panel (12/27/2024 6:48 PM CDT) Sodium 138 135 - 145 mmol/L Potassium, pl 4.0 3.3 - 4.9 mmol/L [facility] Chloride 104 97 - 110 mmol/L [facility] CO2 21(L) 22 - 32 mmol/L [facility] Anion gap 13 2 - 15 mmol/L [facility] BUN 9 6 - 25 mg/dL [facility] Creatinine 0.79 0.60 - 1.10 mg/dL [facility] Glucose 102 70 - 199 mg/dL [facility] Comment: Interpretive Data Fasting glucose >/= [...] Rodriguez NP LAB BLOOD ORDERABLES Final Result [facility] [address] Department [place] [address] * Cardiology Document Scan (12/27/2024 1:09 PM CDT) Anatomical Region Laterality Modality Other Roger Turcios MD CV CARDIAC SERVICES PRO CEDURES Final Result * Cardiology Document Scan (12/27/2024) Anatomical Region Laterality Modality Other Roger Turcios [...] by Sidney Martin M.D. MD: Report ID: [id number] Reading Location: [facility] Narrative 12/20/2022 11:41 AM CDT EXAM DESCRIPTION: [...] Relevant to Health Maintenance Insurance [employer] SIG [address] [place] [address] [employer] [facility] [employer] [place] Advance Directives For more information, please contact: [phone] * Full Code (Latest Code Status on File) Date Activated Date Inactivated Comments 12/27/2024 6:08 PM 01/06/2025 10:43 PM Care Teams Rod Piler Relationship Specialty Start Date End Date Aleida Hu PA PCP - General Physician Wallpaper Embosser Helper 02/21/21 Didier Quispe MD [id number] [place] [address] Surgeon Cardiothoracic Surgery 01/06/25 Angelique Durant NP [address] [facility] [address] [place] [address] Nurse Practitioner Cardiovascular Disease 01/06/25
--- OUTSIDE RECORDS SUMMARY | 2025-02-17 16:08 | XMS_ITS | Encounter Summary ---
Author Organization [facility] Healthcare Address [address] [place] [address] Care Team Providers Care Clinical Pharmacy Specialist Name Role Phone Aleida Hu Primary Care Provider + Didier Quispe MD Unavailable [phone] Angelique Durant NP Unavailable [phone] Encounter Details Date Type Department Care Team (Late st Contact Info) Description 01/13/2025 [facility] Post Discharge Follow up phone call [facility] [address] [place] [address] Iza Vasuqez Social History Tobacco Use Types Packs/Day Years Used Date Smoking Tobacco: Former Cigarettes Smokeless Tobacco: Never [facility] Utilities Answer Date Recorded In the past 12 months has [employer], gas, oil, or water company threatened to shut off services in your [...] often do you attend chur ch or jain services? Never 12/30/2024 Do you belong to any clubs o r organizations such as episcopal groups, unions, fraternal or athletic groups, or [...] money to buy more. Never true 12/31/19 25 Within the past 12 months, t he [...] any time in the past 12 m [facility], were you homeless or living in a [facility] (including now)? No 12/30/2024 Personal Safety Answer [...] on file Sexual Orientation Not on file documented as of this encounter Plan of Treatment Not on file documented as of this encounter Visit Diagnoses Not on filedocumented in this encounter Care Teams Clinical Pharmacy Specialist Relationship Specialty Start Date End Date Aleida Hu PA PCP - General Physician Paper Cap Machine Operator 02/21/21 Didier Quispe MD [id number] [place] [address] Surgeon Cardiothoracic Surgery 01/06/25 Angelique Durant NP [address] [facility] [address] [address] Nurse Practitioner Cardiovascular Disease 01/06/25 documented as of this encounter
--- OUTSIDE RECORDS SUMMARY | 2025-02-17 16:08 | XMS_ITS | Data Portability ---
Author Organization [facility] VERÓNICARenny Address [address] [place] [address] Care Team Providers Care Accountant Helper Name Role Phone OLGA ARELLANO Primary Care Provider [phone] Assessment Encounter Date Assessment Date Assessment LastModified by Organization Details LastModified Time 05/10/2021 05/10/2021 constpation increased Not available 05/10/2021 16:47:05 06/17/2021 06/17/2021 constpation increased Not available 06/17/2021 16:03:20 Plan of Treatment Reminders Order Date Submit Date Provider Last Modified By Organization Details Last Modified Time Details Appointments None recorded. 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-19) , QL, component design engineer-PCR, respirator y specimen 2020 [facility] (Lab), [address] [facility], [place], [address], 17:40:09 BMP, serum or plasma 2020 021 [facility] (Lab), [address] [place], [address], 15:40:19 CBC 2020 021 [facility] (Lab), [address] [place], [address], 1 15:40:03 CMP, serum or plasma 2020 021 [place] [facility], [address] [address], [place], [address], 1 07:12:42 lipid panel, serum 2020 021 [facility], [address], [place], [address], 1 07:12:42 CBC w/ auto diff 2020 021 [facility], [address], [place], [address], 1 07:12:41 albumin/cr eatinine, mass ratio, urine 2020 [facility], [address], [place], [address], 1 07:12:43 TSH + free T4, serum 2020 021 [facility], [address], [place], [address], 1 07:12:40 HbA1c (hemoglobi n A1c), blood 2020 021 [facility], [address], [place], [address], 1 07:12:44 Referral otolaryngo logist referral 2020 021 [email or web address] Not available 16:34:34 gastroente rologist referral 2020 021 Not available 16:39:13 Procedures upper endoscopy procedure (EGD) (PROC) 2020 [facility] [address] [place], [address], 1 10:05:12 Surgeries None recorded. Imaging None recorded. Medication Orders meclizine 25 mg tablet 2020 021 [email or web address] [facility], [address], [place], [address], 19:33:20 loratadine 10 mg tablet 2020 021 [email or web address] [facility], [address], [place], [address], 10:14:13 rosuvastat in 10 mg tablet 2020 021 ALEKS [facility], [address], [place], [address], 16:36:54 Patient TargetsNo targets recorded. Patient Instructions Encounter Date Encounter Id Patient Instructions Last Modified By Organization Details Last Modified Time 05/10/2021 [id number] dizziness: care instructions Not available 05/12/2021 10:21:05 09/28/2021 [id number] hemorrhoids: car e instructions [email or web address] Not available 09/28/2021 17:34:24 gastroesophageal reflux disease (GERD): care instructions [email or web address] Not available 09/28/2021 17:34:24 Reason for Referral Pharmacy Resident Referral fo r Dizziness Referring Physician: Olga Arellano Muffle Operator, Encounter Date: 05/10/2021 Peoplesoft Hr Developer Referral for Hemorrhoids Referring Physician: [facility], Encounter Date: 05/10/2021 Results Created Date Observation Date Name Description Value Unit Range Abnormal Flag Note LastModifiedBy Organization Detail LastModifiedTime 03/22/2003/23/2021 CMP, serum or plasm a glucose 77 mg/dL 65-99 Not Available [facility] ([facility]) [address] [place], [address], 03/23/2021 08:19:05 03/22/20 21 03/23/2021 CMP, serum or plasm a BUN 7 mg/dL 6-20 Not Available [facility] ([facility]) [address] [place], [address], 03/23/2021 08:19:05 03/22/2003/23/2021 CMP, serum or plasm a creatinine 0.86 mg/dL 0.57-1 .00 Not Available [facility] ([facility]) [address] [facility], [place], [address], 03/23/2021 08:19:05 03/22/20 21 03/23/2021 CMP, serum or plasm a eGFR if nonafricn AM 86 mL/mi n/1.7 3 >59 Not Available [facility] ([facility]) [address] [facility], [place], [address], 03/23/2021 08:19:05 03/22/20 21 03/23/2021 CMP, serum [...] SN Task force . Not Available [facility] ([facility]) [address] [facility], [place], [address], 03/23/2021 08:19:05 03/22/2003/23/2021 CMP, serum or plasm a BUN/creatini ne ratio 8 9-23 below low normal Not Available [facility] ([facility]) [address] [facility], [place], [address], 03/23/2021 08:19:05 03/22/2003/23/2021 CMP, serum or plasm a sodium 139 mmol/ L 134-14 4 Not Available [facility] ([facility]) [address] [place], [address], 03/23/2021 08:19:05 06/1503/23/2021 CMP, serum or plasm a potassium 4.5 mmol/ L 3.5-5. 2 Not Available [facility] ([facility]) [address] [place], [address], 03/23/2021 08:19:05 03/22/2003/23/2021 CMP, serum or plasm a chloride 105 mmol/ L 96-106 Not Available [facility] ([facility]) [address] [place], [address], 03/23/2021 08:19:05 03/22/2003/23/2021 CMP, serum or plasm a carbon dioxide, total 21 mmol/ L 20-29 Not Available [facility] ([facility]) [address] [place], [address], 03/23/2021 08:19:05 03/22/2003/23/2021 CMP, serum or plasm a calcium 9.2 mg/dL 8.7-10 .2 Not Available [facility] ([facility]) [address] [place], [address], 03/23/2021 08:19:05 03/22/2003/23/2021 CMP, serum or plasm a protein, total 6.8 g/dL 6.0-8. 5 Not Available [facility] ([facility]) [address] [place], [address], 03/23/2021 08:19:05 03/22/2003/23/2021 CMP, serum or plasm a albumin 4.2 g/dL 3.8-4. 8 Not Available [facility] ([facility]) [address] [place], [address], 03/23/2021 08:19:05 03/22/2003/23/2021 CMP, serum or plasm a globulin, total 2.6 g/dL 1.5-4. 5 Not Available [facility] ([facility]) [address] [place], [address], 03/23/2021 08:19:05 03/22/2003/23/2021 CMP, serum or plasm a A/G ratio 1.6 1.2-2. 2 Not Available [facility] ([facility]) [address] [place] [place], [address], 03/23/2021 08:19:05 03/22/2003/23/2021 CMP, serum or plasm a bilirubin, total 0.6 mg/dL 0.0-1. 2 Not Available [facility] ([facility]) [address] [place], [address], 03/23/2021 08:19:05 03/22/2003/23/2021 CMP, serum or plasm a alkaline phosphatase 75 IU/L 48-121 Not Available [facility] ([facility]) [address] [place], [address], 03/23/2021 08:19:05 03/22/2003/23/2021 CMP, serum or plasm a AST (SGOT) 15 IU/L 0-40 Not Available [facility] ([facility]) [address] [place], [address], 03/23/2021 08:19:05 03/22/2003/23/2021 CMP, serum or plasm a ALT (SGPT) 9 IU/L 0-32 Not Available [facility] ([facility]) [address] [place], [address], 03/23/2021 08:19:05 03/22/2003/23/2021 CK (crea candy kinas e), total , serum creatine kinase,total 33 U/L 32-182 Not Available [facility] ([facility]) [address] [place], [address], 03/23/2021 08:19:06 06/21/2006/22/2021 TSH+F REE T4 TSH 3.890 uIU/m L 0.450- 4.500 Not Available [facility] ([facility]) [address] [place], [address], 06/22/2021 07:12:40 06/21/20 21 06/22/2021 TSH+F REE T4 T4,free(dire ct) 1.01 NG/dL 0.82-1 .77 Not Available [facility] ([facility]) [address] [facility], [place], [address], 06/22/2021 07:12:40 06/21/2006/22/2021 CBC WITH DIFFE RENTI AL/PL ATELE T WBC 10.6 x10e3 /uL 3.4-10 .8 Not Available [facility] ([facility]) [address] [facility], [place], [address], 06/22/2021 07:12:41 06/21/2006/22/2021 CBC WITH DIFFE RENTI AL/PL ATELE T RBC 4.93 x10e6 /uL 3.77-5 .28 Not Available [facility] ([facility]) [address] [place], [address], 06/22/2021 07:12:41 06/21/2006/22/2021 CBC WITH DIFFE RENTI AL/PL ATELE T hemoglobin 15.0 g/dL 11.1-1 5.9 Not Available [facility] ([facility]) [address] [place], [address], 06/22/2021 07:12:41 06/21/2006/22/2021 CBC WITH DIFFE RENTI AL/PL ATELE T hematocrit 45.0 % 34.0-4 6.6 Not Available [facility] ([facility]) [address] [place], [address], 06/22/2021 07:12:41 06/21/20 21 06/22/2021 CBC WITH DIFFE RENTI AL/PL ATELE T MCV 91 fL 79-97 Not Available [facility] ([facility]) [address] [facility], [place], [address], 06/22/2021 07:12:41 06/21/20 21 06/22/2021 CBC WITH DIFFE RENTI AL/PL ATELE T MCH 30.4 pg 26.6-3 3.0 Not Available [facility] ([facility]) [address] [facility], [place], [address], 06/22/2021 07:12:41 06/21/2006/22/2021 CBC WITH DIFFE RENTI AL/PL ATELE T MCHC 33.3 g/dL 31.5-3 5.7 Not Available [facility] ([facility]) [address] [facility], [place], [address], 06/22/2021 07:12:41 06/21/2006/22/2021 CBC WITH DIFFE RENTI AL/PL ATELE T RDW 13.1 % 11.7-1 5.4 Not Available [facility] ([facility]) [address] [facility], [place], [address], 06/22/2021 07:12:41 06/21/2006/22/2021 CBC WITH DIFFE RENTI AL/PL ATELE T platelets 201 x10e3 /uL 150-45 0 Not Available [facility] ([facility]) [address] [facility], [place], [address], 06/22/2021 07:12:41 06/21/2006/22/2021 CBC WITH DIFFE RENTI AL/PL ATELE T neutrophils 68 % not estab. Not Available [facility] ([facility]) [address] [facility], [place], [address], 06/22/2021 07:12:41 06/21/20 21 06/22/2021 CBC WITH DIFFE RENTI AL/PL ATELE T lymphs 21 % not estab. Not Available [facility] ([facility]) [address] [facility], [place], [address], 06/22/2021 07:12:41 06/21/20 21 06/22/2021 CBC WITH DIFFE RENTI AL/PL ATELE T monocytes 7 % not estab. Not Available [facility] ([facility]) [address] [facility], [place], [address], 06/22/2021 07:12:41 06/21/20 21 06/22/2021 CBC WITH DIFFE RENTI AL/PL ATELE T eos 3 % not estab. Not Available [facility] ([facility]) [address] [facility], [place], [address], 06/22/2021 07:12:41 06/21/20 21 06/22/2021 CBC WITH DIFFE RENTI AL/PL ATELE T basos 1 % not estab. Not Available [facility] ([facility]) [address] [place], [address], 06/22/2021 07:12:41 06/21/20 21 06/22/2021 CBC WITH DIFFE RENTI AL/PL ATELE T immature cells BOBBIN PAINTER Not Available [facility] ([facility]) [address] [place], [address], 06/22/2021 07:12:41 06/21/20 21 06/22/2021 CBC WITH DIFFE RENTI AL/PL ATELE T neutrophils (absolute) 7.2 x10e3 /uL 1.4-7. 0 above high normal Not Available [facility] ([facility]) [address] [facility], [place], [address], 06/22/2021 07:12:41 06/21/20 21 06/22/2021 CBC WITH DIFFE RENTI AL/PL ATELE T lymphs (absolute) 2.3 x10e3 /uL 0.7-3. 1 Not Available [facility] ([facility]) [address] [facility], [place], [address], 06/22/2021 07:12:41 06/21/20 21 06/22/2021 CBC WITH DIFFE RENTI AL/PL ATELE T monocytes(ab solute) 0.8 x10e3 /uL 0.1-0. 9 Not Available [facility] ([facility]) [address] [facility], [place], [address], 06/22/2021 07:12:41 06/21/2006/22/2021 CBC WITH DIFFE RENTI AL/PL ATELE T eos (absolute) 0.3 x10e3 /uL 0.0-0. 4 Not Available [facility] ([facility]) [address] [facility], [place], [address], 06/22/2021 07:12:41 06/21/20 21 06/22/2021 CBC WITH DIFFE RENTI AL/PL ATELE T baso (absolute) 0.1 x10e3 /uL 0.0-0. 2 Not Available [facility] ([facility]) [address] [facility], [place], [address], 06/22/2021 07:12:41 06/21/20 21 06/22/2021 CBC WITH DIFFE RENTI AL/PL ATELE T immature granulocytes 0 % not estab. Not Available [facility] ([facility]) [address] [place], [address], 06/22/2021 07:12:41 06/21/2006/22/2021 CBC WITH DIFFE RENTI AL/PL ATELE T immature grans (abs) 0.0 x10e3 /uL 0.0-0. 1 Not Available [facility] ([facility]) [address] [facility], [place], [address], 06/22/2021 07:12:41 06/21/2006/22/2021 CBC WITH DIFFE RENTI AL/PL ATELE T NRBC BOBBIN PAINTER Not Available [facility] ([facility]) [address] [facility], [place], [address], 06/22/2021 07:12:41 06/21/20 21 06/22/2021 CBC WITH DIFFE RENTI AL/PL ATELE T hematology comments: BOBBIN PAINTER Not Available [facility] ([facility]) [address] [facility], [place], [address], 06/22/2021 07:12:41 06/21/20 21 06/22/2021 COMP. METAB OLIC PANEL (14) glucose 105 mg/dL 65-99 above high normal Not Available [facility] ([facility]) [address] [facility], [place], [address], 06/22/2021 07:12:42 06/21/2006/22/2021 COMP. METAB OLIC PANEL (14) BUN 11 mg/dL 6-20 Not Available [facility] ([facility]) [address] [place] [place], [address], 06/22/2021 07:12:42 06/21/2006/22/2021 COMP. METAB OLIC PANEL (14) creatinine 0.81 mg/dL 0.57-1 .00 Not Available [facility] ([facility]) [address] [place] [place], [address], 06/22/2021 07:12:42 06/21/2006/22/2021 COMP. METAB OLIC PANEL (14) eGFR if nonafricn AM 92 mL/mi n/1.7 3 >59 Not Available [facility] ([facility]) [address] [place] [place], [address], 06/22/2021 07:12:42 06/21/20 21 06/22/2021 COMP. METAB [...] SN Task force . Not Available [facility] ([facility]) [address] [facility], [place], [address], 06/22/2021 07:12:42 06/21/20 21 06/22/2021 COMP. METAB OLIC PANEL (14) BUN/creatini ne ratio 14 9-23 Not Available [facility] ([facility]) [address] [facility], [place], [address], 06/22/2021 07:12:42 06/21/20 21 06/22/2021 COMP. METAB OLIC PANEL (14) sodium 142 mmol/ L 134-14 4 Not Available [facility] ([facility]) [address] [facility], [place], [address], 06/22/2021 07:12:42 06/21/20 21 06/22/2021 COMP. METAB OLIC PANEL (14) potassium 4.4 mmol/ L 3.5-5. 2 Not Available [facility] ([facility]) [address] [facility], [place], [address], 06/22/2021 07:12:42 06/21/20 21 06/22/2021 COMP. METAB OLIC PANEL (14) chloride 109 mmol/ L 96-106 above high normal Not Available [facility] ([facility]) [address] [facility], [place], [address], 06/22/2021 07:12:42 06/21/20 21 06/22/2021 COMP. METAB OLIC PANEL (14) carbon dioxide, total 18 mmol/ L 20-29 below low normal Not Available [facility] ([facility]) [address] [facility], [place], [address], 06/22/2021 07:12:42 06/21/20 21 06/22/2021 COMP. METAB OLIC PANEL (14) calcium 9.2 mg/dL 8.7-10 .2 Not Available [facility] ([facility]) [address] [place], [address], 06/22/2021 07:12:42 06/21/20 21 06/22/2021 COMP. METAB OLIC PANEL (14) protein, total 6.5 g/dL 6.0-8. 5 Not Available [facility] ([facility]) [address] [place], [address], 06/22/2021 07:12:42 06/21/20 21 06/22/2021 COMP. METAB OLIC PANEL (14) albumin 4.2 g/dL 3.8-4. 8 Not Available [facility] ([facility]) [address] [place], [address], 06/22/2021 07:12:42 06/21/20 21 06/22/2021 COMP. METAB OLIC PANEL (14) globulin, total 2.3 g/dL 1.5-4. 5 Not Available [facility] ([facility]) [address] [place], [address], 06/22/2021 07:12:42 06/21/20 21 06/22/2021 COMP. METAB OLIC PANEL (14) A/G ratio 1.8 1.2-2. 2 Not Available [facility] ([facility]) [address] [place], [address], 06/22/2021 07:12:42 06/21/20 21 06/22/2021 COMP. METAB OLIC PANEL (14) bilirubin, total 0.3 mg/dL 0.0-1. 2 Not Available [facility] ([facility] [address] [facility] [place], [address], 06/22/2021 07:12:42 06/21/20 21 06/22/2021 COMP. METAB OLIC PANEL (14) alkaline phosphatase 62 IU/L 44-121 Ple ase note refer ence valeria toscano Not Available [facility] ([facility]) [address] [place] [place], [address], 06/22/2021 07:12:42 06/21/20 21 06/22/2021 COMP. METAB OLIC PANEL (14) AST (SGOT) 13 IU/L 0-40 Not Available [facility] ([facility]) [address] [place], [address], 06/22/2021 07:12:42 06/21/20 21 06/22/2021 COMP. METAB OLIC PANEL (14) ALT (SGPT) 7 IU/L 0-32 Not Available [facility] ([facility]) [address] [place], [address], 06/22/2021 07:12:42 06/21/20 21 06/22/2021 LIPID PANEL cholesterol, total 158 mg/dL 100-19 9 Not Available [facility] ([facility]) [address] [place], [address], 06/22/2021 07:12:42 06/21/20 21 06/22/2021 LIPID PANEL triglyceride s 264 mg/dL 0-149 above high normal Not Available [facility] ([facility]) [address] [place], [address], 06/22/2021 07:12:42 06/21/20 21 06/22/2021 LIPID PANEL HDL cholesterol 30 mg/dL >39 below low normal Not Available [facility] ([facility]) [address] [place], [address], 06/22/2021 07:12:42 06/21/20 21 06/22/2021 LIPID PANEL VLDL cholesterol tomas 44 mg/dL 5-40 above high normal Not Available [facility] ([facility]) [address] [place], [address], 06/22/2021 07:12:42 06/21/20 21 06/22/2021 LIPID PANEL LDL chol calc ([facility]) 84 mg/dL 0-99 Not Available [facility] ([facility]) [address] [facility], [place], [address], 06/22/2021 07:12:42 06/21/20 21 06/22/2021 LIPID PANEL comment: BOBBIN PAINTER Not Available [facility] ([facility]) [address] [facility], [place], [address], 06/22/2021 07:12:42 06/21/20 21 06/22/2021 ALBUM IN/CR EATIN INE RATIO ,URIN E creatinine, urine 174.4 mg/dL not estab. Not Available [facility] ([facility]) [address] [facility], [place], [address], 06/22/2021 07:12:43 06/21/20 21 06/22/2021 ALBUM IN/CR EATIN INE RATIO ,URIN E albumin, urine 7.6 ug/mL not estab. Not Available [facility] ([facility]) [address] [facility], [place], [address], 06/22/2021 07:12:43 06/21/20 21 06/22/2021 ALBUM IN/CR EATIN INE RATIO ,URIN E alb/creat ratio 4 mg/g_ creat 0-29 Adelaida l: 0 - 29 Moder ately incre ased: 30 - 300 Sever barb incre ased: >300 Not Available [facility] ([facility]) [address] [facility], [place], [address], 06/22/2021 07:12:43 06/21/20 21 06/22/2021 HEMOG LOBIN A1C hemoglobin A1C 5.5 % 4.8-5. 6 Predi abete s: 5.7 - 6.4 Diabe ari: >6.4 Glyce deysi contr ol for adult s with diabe ari: <7.0 Not Available [facility] ([facility]) [address] [facility], [place], [address], 06/22/2021 07:12:43 08/25/2009/08/2021 Human papil josh virus E6+E7 mRNA [Pres ence] in Cervi x by ROSEANN with probe detec tion HPV high risk Negati ve HPV high risk Not Available Not Available 12/26/2024 13:38:46 09/28/20 21 09/28/2021 CBCON LY - WITHO UT AUTO DIFF WBC 10.4 K/uL 3.4-10 .8 Not Available [facility] (Lab) [address], [place], [address], 10/04/2021 15:40:02 09/28/20 21 09/28/2021 CBCON LY - WITHO UT AUTO DIFF red blood count 5.1 M/uL 4.2-5. 4 Not Available [facility] (Lab) [address] [facility], [place], [address], 10/04/2021 15:40:02 09/28/20 21 09/28/2021 CBCON LY - WITHO UT AUTO DIFF hemoglobin 15.5 g/dL 11.5-1 5.5 Not Available [facility] (Lab) [address], [place], [address], 10/04/2021 15:40:02 09/28/20 21 09/28/2021 CBCON LY - WITHO UT AUTO DIFF hematocrit 46.0 % 36.0-4 8.0 Not Available [facility] (Lab) [address], [place], [address], 10/04/2021 15:40:02 09/28/20 21 09/28/2021 CBCON LY - WITHO UT AUTO DIFF MCV 91 fL 80-95 Not Available [facility] (Lab) [address], [place], [address], 10/04/2021 15:40:02 09/28/20 09/28/2021 CBCON LY - WITHO UT AUTO DIFF MCH 31 pg 27-32 Not Available [facility] (Lab) [address], [place], [address], 10/04/2021 15:40:02 09/28/20 21 09/28/2021 CBCON LY - WITHO UT AUTO DIFF MCHC 34 g/dL 32-36 Not Available [facility] (Lab) [address] [place], [address], 10/04/2021 15:40:02 09/28/20 21 09/28/2021 CBCON LY - WITHO UT AUTO DIFF platelets 220 K/uL 155-37 9 Not Available [facility] (Lab) [address], [place], [address], 10/04/2021 15:40:02 09/28/20 21 09/28/2021 CBCON LY - WITHO UT AUTO DIFF RDW 13.8 % 11.5-1 4.5 Not Available [facility] (Lab) [address], [place], [address], 10/04/2021 15:40:02 09/28/20 21 09/28/2021 CBCON LY - WITHO UT AUTO DIFF MPV 10.4 fL 8.9-12 .7 Not Available [facility] (Lab) [address] [place], [address], 10/04/2021 15:40:02 09/28/20 21 09/28/2021 BASIC METAB OLIC PANEL (BMP) glucose, serum 86 mg/dL 65-99 Not Available [facility] (Lab) [address] [place], [address], 10/04/2021 15:40:19 09/28/20 21 09/28/2021 BASIC METAB OLIC PANEL (BMP) BUN 10 mg/dL 8-26 Not Available [facility] (Lab) [address] [place], [address], 10/04/2021 15:40:19 09/28/20 21 09/28/2021 BASIC METAB OLIC PANEL (BMP) creatinine, serum 0.72 mg/dL 0.50-1 .40 Not Available [facility] (Lab) [address] [place], [address], 10/04/2021 15:40:19 09/28/20 21 09/28/2021 BASIC METAB OLIC PANEL (BMP) BUN/creatnin e ratio 14.3 Not Available [facility] (Lab) [address] [place], [address], 10/04/2021 15:40:19 09/28/20 21 09/28/2021 BASIC METAB OLIC PANEL (BMP) sodium, serum 137.2 mmol/ L 136.0- 144.0 Not Available [facility] (Lab) [address] [place], [address], 10/04/2021 15:40:19 09/28/20 21 09/28/2021 BASIC METAB OLIC PANEL (BMP) potassium, serum 4.3 mmol/ L 3.5-5. 3 Not Available [facility] (Lab) [address] [place], [address], 10/04/2021 15:40:19 09/28/20 21 09/28/2021 BASIC METAB OLIC PANEL (BMP) chloride, serum 103 mmol/ l 101-11 1 Not Available [facility] (Lab) [address] [place], [address], 10/04/2021 15:40:19 09/28/20 21 09/28/2021 BASIC METAB OLIC PANEL (BMP) carbon dioxide total 20.6 mmol/ L 21.0-3 2.0 low Not Available [facility] (Lab) [address] [place], [address], 10/04/2021 15:40:19 09/28/20 21 09/28/2021 BASIC METAB OLIC PANEL (BMP) aniongp 18.0 mmol/ L Not Available [facility] (Lab) [address] [facility], [place], [address], 10/04/2021 15:40:19 09/28/20 21 09/28/2021 BASIC METAB OLIC PANEL (BMP) calcium, serum 9.2 mg/dL 8.2-10 .0 Not Available [facility] [facility] [address] [place], [address], 10/04/2021 15:40:19 09/28/20 21 09/28/2021 BASIC METAB OLIC PANEL (BMP) osmol 273.0 mOsm/ L 275.0- 301.0 low Not Available [facility] (Lab) [address] [facility], [place], [address], 10/04/2021 15:40:19 09/28/20 21 09/28/2021 BASIC METAB OLIC PANEL (BMP) eGFR, non- AM 96 mL/mi n/1.7 3/m >=60 Not Available [facility] (Lab) [address] [facility], [place], [address], 10/04/2021 15:40:19 11/01/19 23 11/03/2022 Bacte rial vagin osis and vagin itis DNA panel - Vagin al fluid by Probe with signa l ampli ficat ion bacterial vaginosis BV POS abnormal bacte rial vagin osis Not Available Not Available 12/26/2024 13:38:46 11/01/19 23 11/03/2022 Bacte rial vagin osis and vagin itis DNA panel - Vagin al fluid by Probe with signa l ampli ficat ion stephany species C. spp neg claudio da speci es Not Available Not Available 12/26/2024 13:38:46 11/01/19 23 11/03/2022 Bacte rial vagin osis and vagin itis DNA panel - Vagin al fluid by Probe with signa l ampli ficat ion stephany glabrata C. gla neg claudio da glabr cynthia Not Available Not Available 12/26/2024 13:38:46 11/01/19 23 11/03/2022 Bacte rial vagin osis and vagin itis DNA panel - Vagin al fluid by Probe with signa l ampli ficat ion trichomonas vaginalis CV/TV TRICH POS abnormal trich omona s vagin niki CV/TV Not Available Not Available 12/26/2024 13:38:46 11/01/19 23 11/03/2022 Bacte rial vagin osis and vagin itis DNA panel - Vagin al fluid by Probe with signa l ampli ficat ion chlamydia trachomatis CT neg chlam ydia trach omati s Not Available Not Available 12/26/2024 13:38:46 11/01/19 23 11/03/2022 Bacte rial vagin osis and vagin itis DNA panel - Vagin al fluid by Probe with signa l ampli ficat ion neisseria gonorrhoeae GC neg neiss eria gonor rhoea e Not Available Not Available 12/26/2024 13:38:46 11/01/19 23 11/02/2022 Prola ctin [Mass /volu me] in Serum or Plasm a prolactin prola ctin Not Available Not Available 12/26/2024 13:38:46 11/01/19 23 11/02/2022 Human papil josh virus E6+E7 mRNA [Pres ence] in Cervi x by ROSEANN with probe detec tion HPV high risk POSITI VE abnormal HPV high risk Not Available Not Available 12/26/2024 13:38:46 11/07/19 23 11/07/2022 Prola ctin [Mass /volu me] in Serum or Plasm a prolactin [mass/volume ] in serum or plasma prola ctin Not Available Not Available 12/26/2024 13:38:46 11/07/19 23 11/07/2022 Testo stero ne free and total panel [Mass /volu me] - Serum or Plasm a albumin [mass/volume ] in serum or plasma album in Not Available Not Available 12/26/2024 13:38:46 11/07/19 23 11/07/2022 Testo stero ne free and total panel [Mass /volu me] - Serum or Plasm a sex hormone binding globulin [moles/volum e] in serum or plasma sex hormo ne farrah ng globu hailey Not Available Not Available 12/26/2024 13:38:46 11/07/1911/07/2022 Testo stero ne free and total panel [Mass /volu me] - Serum or Plasm a testosterone free [mass/volume ] in serum or plasma high testo stero ne, free Not Available Not Available 12/26/2024 13:38:46 11/07/19 23 11/07/2022 Testo stero ne free and total panel [Mass /volu me] - Serum or Plasm a testosterone .free+weakly bound [mass/volume ] in serum or plasma high testo stero ne,bi oavai lable Not Available Not Available 12/26/2024 13:38:46 11/07/1911/07/2022 Testo stero ne free and total panel [Mass /volu me] - Serum or Plasm a testosterone [mass/volume ] in serum or plasma high testo stero ne, total , [place] Not Available Not Available 12/26/2024 13:38:46 02/23/20 21 02/22/2021 US, echoc ardio gram No observ ation record ed. [address] (Imaging) [facility] [address] [place] [address], [phone], 02/28/2021 14:36:59 03/28/20 21 03/28/2021 CT, angio gram, head, w/ contr ast No observ ation record ed. [address] (Imaging) [facility] [address] [place] [address], [address], 03/29/2021 14:37:36 03/28/20 21 03/28/2021 XR, chest No observ ation record ed. [address] (Imaging) [facility] [address] [place] [address], [phone], 03/29/2021 14:37:54 03/29/20 21 03/29/2021 MRI, brain + brain stem, w/o contr ast No observ ation record ed. [address] (Imaging) [facility] [address], [address], 03/30/2021 13:10:46 10/20/19 22 10/05/2021 tawanna r monit or No observ ation record ed. [address] [facility] [address] [facility] [address], [place], [address], 10/21/2021 13:50:05 11/05/19 22 11/05/2021 XR, chest No observ ation record ed. [place] [id number] [facility] [address], [place], [address], 11/07/2021 13:43:57 11/28/19 22 11/28/2021 XR, chest No observ ation record ed. [address], [place], [address], 11/29/2021 19:11:38 12/10/19 22 12/09/2021 XR, chest , 2 view No observ ation record ed. [address], [place], [address], 12/21/2021 12:26:49 12/13/19 22 12/12/2021 , [facility] ardio gram No observ ation record ed. [address], [place], [address], 12/21/2021 12:27:01 12/16/19 22 12/15/2021 XR, chest No observ ation record ed. [address], [place], [address], 12/21/2021 12:27:12 09/25/20 22 09/25/2022 XR, chest , 2 view No observ ation record ed. [address], [place], [address], 09/25/2022 16:59:35 04/11/20 23 04/11/2023 XR, chest , 2 view No observ ation record ed. [address], [place], [address], 04/11/2023 20:07:19 04/12/20 23 04/11/2023 XR, chest , 2 view No observ ation record ed. [place] [address], [place], [address], 04/17/2023 13:36:03 08/11/20 23 08/11/2023 XR, chest , 2 view No observ ation record ed. [place] [address], [place], [address], 08/18/2023 16:37:27 08/11/20 23 08/11/2023 CT, abdom en + pelvi s, w/ contr ast No observ ation record ed. [place] [address], [place], [address], 08/18/2023 16:37:58 03/04/20 24 03/04/2024 XR, chest , 2 view No observ ation record ed. [place] [address], [place], [address], 03/07/2024 11:20:19 05/16/20 24 05/16/2024 XR, chest , 2 view No observ ation record ed. [place] [address], [place], [address], 05/19/2024 17:24:03 11/01/19 25 11/01/2024 XR, chest , 2 view No observ ation record ed. [place] [address], [place], [address], 11/05/2024 09:44:45 12/27/19 25 12/25/2024 XR, chest , 2 view No observ ation record ed. [address] [facility], [place], [address], 12/31/2024 08:02:20 12/28/19 25 12/27/2024 US, doppl er echoc ardio gram No observ ation record ed. [place] [id number], [address], 12/31/2024 08:02:49 Result Notes None recorded. Problems Name Problem SNOMED Code Status Onset Date Resolution Date Notes Provider Name and Address Organization Details Recorded Time Anxiety 87410696 Active 2019 Jhoana Dill [place] null, [place] [facility] 0 11:31:05 Polycystic ovary syndrome 597085375 Active 2019 Jhoana Dill [place], [place] [facility] 0 11:32:06 Hypertensive disorder 38329010 Active 2019 Clari Lakhani [place] null, [place] [facility] 0 17:05:20 Myocardial infarction 71843478 Active 2020 RCA 1005 OCCLUS ION. February 2021 ARNAV GATICA Attn: Mary Ann alvares,[address] [facility], [place], [address], [place] [facility] 1 12:21:40 Problem Notes None recorded. Procedures Surgical History None recorded. Imaging Results Imaging Date Name Status LastModified by Organization Details LastModified Time 02/22/2021 US, echocardiogram completed [address] (Imaging) [address] [place] [address], [address], 02/28/2021 14:36:59 03/28/2021 CT, angiogram, head, w/ contrast completed [address] (Imaging) [address] [place] [address], [address], 03/29/2021 14:37:36 03/28/2021 XR, chest completed [address] (Imaging) [address] [place] [address], [address], 03/29/2021 14:37:54 03/29/2021 MRI, brain + brain stem, w/o contrast completed [address] (Imaging) [address] [place] [address] [address], [place], [address], 03/30/2021 13:10:46 10/05/2021 holter monitor completed [address] [facility] [address] [facility] [address], [place], [address], 10/21/2021 13:50:05 11/05/2021 XR, chest completed [address], [place], [address], 11/07/2021 13:43:57 11/28/2021 XR, chest completed [address], [place], [address], 11/29/2021 19:11:38 12/09/2021 XR, chest, 2 view completed [place] [address], [place], [address], 12/21/2021 12:26:49 12/12/2021 US, echocardiogram completed [address], [place], [address], 12/21/2021 12:27:01 12/15/2021 XR, chest completed [address] [facility], [place], [address], 12/21/2021 12:27:12 09/25/2022 XR, chest, [address], [address], 09/25/2022 16:59:35 04/11/2023 XR, chest, 2 view completed [address], [place], [address], 04/11/2023 20:07:19 04/11/2023 XR, chest, 2 view [address], [address], 04/17/2023 13:36:03 08/11/2023 XR, chest, 2 view [address], [address], 08/18/2023 16:37:27 08/11/2023 CT, abdomen + pelvis, w/ contrast completed [address], [address], 08/18/2023 16:37:58 03/04/2024 XR, chest, 2 view completed [address], [address], 03/07/2024 11:20:19 05/16/2024 XR, chest, 2 view completed [address], [address], 05/19/2024 17:24:03 11/01/2024 XR, chest, 2 view completed [address], [address], 11/05/2024 09:44:45 12/25/2024 XR, chest, 2 view completed [address], [address], 12/31/2024 08:02:20 12/27/2024 US, doppler echocardiogram completed [address], [address], 12/31/2024 08:02:49 Procedure Notes None recorded. Medical Equipment None Reported. Allergies Allergen ID Allergen Name Allergen Category Reaction Reaction Severity Criticality Documentation Date Start Date Code Code System Note Provider Name and Address Organization Details Recorded Time 793918 clarithro mycin medicatio n Not available Not available Not available 02/06/2020 64952 RxNorm Since infan t Jhoanamaranda Dill MA null, [facility] 0 11:30:29 359285 lisinopri l medicatio n cough Not available Not available 08/09/2020 61809 RxNorm Clari Lakhani MA null, [facility] 1 16:24:55 710142 erythromy stevie medicatio n Not available Not available Not available 03/25/2021 4053 RxNorm Angelique Aragon RN null, [facility] 1 16:06:04 Medications Name Sig Start Date Stop Date [...] Updated DateTime 1 175.26 cm 37.5 kg/m2 419893. 46 g 86 /min 98 % 98 % 122 mm[Hg] 82 mm[Hg] Navi Holder MA [place] - [facility] 1 16:32:47 Date Recorded Body height Body mass index (BMI) Body weight Body temperature Heart rate Respiratory rate Systolic blood pressure Diastolic blood pressure Provider Name and Address Organization Details Last Updated DateTime 1 175.26 cm 38.6 kg/m2 428456. 4 g 96.8 [degF] 80 /min 22 /min 183 mm[Hg] 92 mm[Hg] Mihaela Adler [facility] 17:03:19 Social History Question Answer Notes LastModified by Organizat ion Details LastModified Time Tobacco Smoking Status Current Every Day Smoker Has cut down consideratly since having heart attack last week. -03/03/2021 MARIAJOSE Pantoja, [facility] 03/03/2021 16:30:10 Do You Have An Advance Directive? No Information not available 03/25/2021 What Is Your Level Of Caffeine Consumption? [...] For COVID-19? No Information not available 06/17/2021 What Type Of Diet Are You Following? REGULAR Information not available 02/06/2020 Which Illicit Or Recreational Drugs Have You Used? None Information not available 02/06/2020 Live Alone Or With Others? With Others [...] To Smoke? No Information not available 03/25/2021 How Much Tobacco Do You Smoke? 1 PPD Little Less Than 1 Pack Information not available 02/06/2020 General Stress Level High Information not available 07/15/2020 On What Date Was Tobacco Cessation Counseling Provided? 06/17/2021 Information not available 06/17/2021 How Many Years Have You Smoked Tobacco? 25 Information not available 02/06/2020 Sex: Unknown Functional Status Question Answer Note LastModified by Organizat ion Details LastModified Time Do you or have you ever used any other forms of tobacco or nicotine? No Information not available 03/25/2021 What is your level of alcohol consumption? None Information not available 02/06/2020 Do you or have you ever used smokeless tobacco? Never used smokeless tobacco Information not available 02/06/2020 Are you currently employed? Yes Information not available 03/25/2021 Are you able to care for yourself? 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 Never used electronic cigarettes Information not available 02/06/2020 Mental Status None recorded. Family History Relationship Description Onset Age of this Age Resolved Age Notes LastModified by Organization Details LastModified Time Father Myocardial infarction 46 [email or web address] Not available 10/2019 11:33:22 Mother Malignant neoplasm of lung 46 [email or web address] Not available 02/05 11:33:46 Medical History Condition Response Coronary Artery Disease N Other N Atrial Fibrillation N High Blood Pressure N Kidney or Bladder Problems N Thyroid Problems N GI Problems N Depression N COPD N Blood Clots N Skin Problems N Anemia N Heart Attack (MT) Y Anxiety Disorder Y Diabetes N Muscle, Joint, or Bone Problems N Seizures/Epilepsy N Acid Reflux (GERD) N Cancer N Stroke N Asthma N Allergies N High Cholesterol N Hepatitis N Liver Disease N Headaches N Heart Failure N Osteoporosis N Gynecological [...] SNOMED-CT Code Diagnosis ICD10 Code Diagnosis Note [id number] ARNAV GATICA [facility] [address] [place] [address] 02/06/2020 09:37:43 02/09/2020 10:46:57 Polycystic ovary syndrome 550348863 E28.2 Patient having period every 3 months [...] it this month.- needs pap smear Anxiety 97763055 F41.9 patient has been on Celexa for [...] one month - call with questions Adult [facility] examination 604247668 Z00.01 Patient presents for physical. She would like to have labs. - pap smear- stop smoking- lab work- continue celexa for anxiety- will consider OCP for PCOS for protection against unopposed estrogen Elevated blood-pressure reading without diagnosis of hypertension 519976172 R03.0 Patient feels like her BP has [...] BP Advised goal for BP is <140/90 [id number] ARNAV GATICA [facility] [address] [place] [address] 02/11/2020 09:56:10 02/12/2020 09:25:44 [id number] ARNAV GATICA [facility] [address] [place] [address] 07/15/2020 17:00:36 07/19/2020 11:46:13 Anxiety 07568935 F41.9 patient has been on Celexa for [...] emerge). Additional ly, patient has suicide hotline #[phone]. - f/u one month - call with questions Elevated blood-pressure reading without diagnosis of hypertension 446645763 R03.0 Patient seen ER for BP and [...] elevated BP puts her at risk of stroke,MT, kidney damage ect. She is advised on [...] BP Advised goal for BP is <140/90 [id number] ARNAV GATICA [facility] [address] [place] [address] 07/16/2020 09:54:46 07/16/2020 14:34:15 [id number] ARNAV GATICA [facility] [address] [place] [address] 07/27/2020 10:04:46 07/28/2020 09:45:56 Viral gastroenteritis 683195553 A08.4 Patient with four days of diarrhea and abdominal pain needs letter for work. She is no longer having symptoms. denies fever, chills, mucus or blood in stool - bland diet- hydration [id number] ARNAV GATICA [facility] [address] [place] [address] 08/03/2020 10:06:42 08/09/2020 14:33:36 Elevated blood-pressure reading without diagnosis of hypertension 824851625 R03.0 patient skipping lisinopril due to cough. [...] BP Advised goal for BP is <140/90 [id number] ARNAV GATICA [facility] [address] [place] [address] 03/03/2021 16:07:03 03/08/2021 07:26:18 Goiter 3427224 E04.9 Myocardial infarction 22 571012 I21.9 RCA 100% occlusion. cleared and has [...] BP Advised goal for BP is <140/90 [id number] ARNAV GATICA [facility] [address] [place] [address] 03/22/2021 11:26:40 03/22/2021 11:43:46 [id number] ARNAV GATICA [facility] [address] [place] [address] 03/25/2021 08:15:15 03/28/2021 06:20:54 Hyperlipidemia 55209715 E78.5 Myocardial infarction 22 506359 I21.9 patient feeling tired but still attending [...] BP Advised goal for BP is <140/90 [id number] ARNAV GATICA [facility] [address] [place] [address] 05/10/2021 16:10:21 05/12/2021 13:35:42 Dizziness 318447216 R42 Patient complains of chronic dizziness with ear pooping and pressure. This has been going on before she has an MT but is now worse. She has not tried allergy pills and denies sinus pressure. Happens sitting still or with position movement. Has been told she had vertigo many years ago. Denies ear discharge, fevers, syncope. - notify Cardiologi st at upcoming appointmen t- ENT- labs have been normal Hemorrhoids 49024789 K64 .9 Constipation 66953052 K5 9.00 chronic constipati on. Stooling every four days. She drinks water, cut out fast foods, fried foods and sugary drinks. Eats veggies and fruits. She also c/o bloating and gas. Denies diarrhea, blood in stool ,mucus. No hx of colonoscop y. Seasonal a llergic rhinitis 497461774 J30.2 [id number] ARNAV GATICA [facility] [address] [place] [address] 06/17/2021 08:07:41 06/20/2021 08:04:13 Dizziness 039154466 R42 refill Hypertensive disorder 38 047020 I10 patient due for labs- continue following cardiology - dash diet- 30 mins activity 5x week- monitor BP at home [id number] Noman Anguiano DO [facility] [address] [facility] [place] [address] 09/28/2021 16:28:15 09/29/2021 09:44:49 Gastroesophageal reflux disease without esophagitis 733945784 K21.9 Coronary arteriosclerosis 44891506 I25.10 Body mass index 30+ - obesity 832852536 Z68.38 Anxiety 18702731 F41.9 Myocardial infarction 22 483535 I21.9 February 21, 2021 Polycystic ovary syndrome 980826634 E28.2 Internal hemorrhoids 904 24104 K64.8 Increase fiber intake Health Concerns Section Related Observation LastModified by Organization Detai ls LastModified Time None Recorded Concern Status LastModified by Organization Details LastModified Time None Recorded Advance Directives Directive N: Payers Encounter Date Sequence Insurance Name Policy Number Policy Hernandez Covered Member ID Hernandez Member ID Guarantor Name 03/22/2021 1 [facility] (MEDICAID REPLACEMENT - HMO) [id number] Prem Rao [id number] Prem Rao 03/25/2021 1 [facility] (MEDICAID REPLACEMENT - HMO) [id number] Prem Rao [id number] Prem Rao 05/10/2021 1 [employer] [place] ON [place] AFTER 2020 ([place]ID REPLACEMENT - HMO) Prem Rao [id number] Prem Rao 06/17/2021 1 [employer] - [place]MO) Prem Rao [id number] Prem Rao 09/28/2021 1 [employer] [place] - [place]MO) Prem Rao [id number] Prem Rao Notes Date Note Type Note Provider Name and Address Organization Details Recorded Time text/html Patient presents for one month f/u Patient continues feeling run down and ragged after her heart attack. She is doing cardiac rehab and has gone 5x. MWT she goes in. doing well. weight 249. had cardiology appointment today but no longer takes her insurance. 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 She also states her meication for cholesterol is better tolerated by cutting half. Manager Content confirmed this was okay. ARNAV GATICA Attn: Accounting, [place], [address], [facility] 03/25/2021 16:55:13 1 text/html ConstipationReported [...] been going on before she has an MT but is now worse. She has not tried allergy pills and denies sinus pressure. Happens sitting still or with position movement. Has been told she had vertigo many years ago. Denies ear discharge, fevers, syncope. ARNAV GATICA Attn: Accounting,[address] [facility], [place], [address], [facility] 05/12/2021 10:21:27 1 text/html Prem presents for f/u and labs Patient states dizziness has improved since stopping Lisinopril. She continues following with cardiology. Drinks 16.9 fl oz of soda per day. She still follows her diet. She started a new job and it is low stress. She is sleeping well and tries to control anxiety without medication. ARNAV GATICA Attn: Accounting,[address] [facility], [place], [address], [facility] 06/19/2021 19:42:51 1 text/html Heartburn for her whole life. Has nocturnal regurgitation. famotidine helps a bit. Believes she has hemorrhoids. They pop out. Noman Anguiano, DO [address] [place], [address], [facility] 09/28/2021 17:35:04 OBGyn Episode Ob Episode Information Episode Created Date Number of Fetuses Patient Bloodtype Patient rh Status Prepregnancy Weight lbs Domestic Partner Domestic Partner Phone Father Name Manager Of International Status 02/06/20 20 1 CLOSED Fetus Data First Name Last Name Admitted to NICU Weight (g) Sex Living Outcome Pediatric Complications Fetus ID Race Codes Race Delivery Type M Full Term [id number] Esau Calculation Initial Esau Date Initial Exam [...]
--- NOTE | 2025-02-17 16:21 | ED_ITS ---
HPI - Chest Pain General Chief Complaint: Chest Pain Stated Complaint: Quad bypass 01/01 - chest pain Time Seen by Provider: 02/17/25 17:40 Focused HPI: 44-year-old female with a history of quadruple bypass on 01/01/2025 at [facility] by Dr. Quispe presents to the ED for chest pain that started at 3:00 p.m. while at work. Patient states she was sitting down when she began developing pain in the left side of her chest. She states the pain radiates to the left neck/shoulder. She notes the pain is worse with exertion and has associated shortness of breath. She contacted her surgeon was advised to come to the nearest ER for an EKG. She denies abdominal pain, numbness or weakness. Has had intermittent tingling to the left hand since her bypass which she is attributing to where they took the artery for the bypass. States she took Xanax prior to arrival because she short-segment panic attack. She has not taken her nitro. She is compliant with her aspirin and Plavix. GENERAL: Tearful, anxious appearing HEAD: Normocephalic, atraumatic. CHEST: Clear to auscultation. ?No respiratory distress. Well-healed midsternal surgical scar with no wound dehiscence or surrounding erythema, induration or edema HEART: Regular rate and rhythm.? NEURO: ?Alert and oriented x3. Patient screened in triage and initial orders placed.? ?Additional care and disposition to be based upon?diagnostic testing and treatment. Related Data Home Medications ?Medication ?Instructions ?Recorded ?Confirmed ?Last Taken ?Type famotidine 40 mg tablet 20 mg PO TID PRN indegestion 07/11/20 12/26/24 12/15/21 History losartan 50 mg tablet 100 mg PO HS 12/26/24 12/27/24 Unknown History alprazolam 0.25 mg tablet 0.25 mg PO DAILY PRN anxiety 12/27/24 12/27/24 Unknown History Allergies Allergy/AdvReac Type Severity Reaction Status Date / Time erythromycin base Allergy Unknown Verified 12/25/24 22:43 [facility] Past Medical History Medical History Essential hypertension Polycystic ovarian syndrome Gastroesophageal reflux disease Coronary artery disease (~02/2017) STEMI (ST elevation myocardial infarction) (02/2021) Tobacco abuse Obesity Surgical History Surgical History History of cardiac catheterization (02/21/21) And 12/12/2021 History of coronary artery stent placement 02/21/2021: Drug-eluting stent to the right coronary artery 12/12/2021 3.5 x 15 mm drug-eluting stent to the LAD due to 95% stenosis proximal LAD Family History Family History Father CAD (coronary artery disease) Acute myocardial infarction Hypertension Daughter No problems noted. Mother Lung cancer Cancer Sibling Hypertension Acute myocardial infarction Social History Social History Social History: Surrogate decision maker: Vonnie Rabagoins, sister. Code status: Full code. Smoking packs per day: 1.5 Smoking cigarettes per day: 30.0 Years smoked: 26 Smoking pack-years: 39.00 Smoking status: Former smoker Tobacco type: cigarettes Smoking end date: 12/09/21 Alcohol intake: never Substance use: never Substance use type: does not use Do You Feel Safe in your Home?: Yes Lack of Transportation: No Lack of Food: Never True Current Housing: I Have Housing Concerned About Future Housing: No Difficulty Paying Gas/Electric Bills: No Difficulty Paying for Meds: No Currently Unemployed: No Education: High School Diploma/GED Difficulty w/ Childcare or Family Care: No Spiritual care concerns: No Course Vital Signs Vital signs: Vital Signs Temperature 97.9 F 02/17/25 16:16 Pulse Rate 84 02/17/25 16:16 Respiratory Rate 18 02/17/25 16:16 Blood Pressure 180/105 H 02/17/25 16:16 Pulse Oximetry 100 02/17/25 16:16 Oxygen Delivery Room Air 02/17/25 16:16 Temperature 97.9 F 02/17/25 16:18 Pulse Rate 94 02/18/25 00:31 Respiratory Rate 20 02/18/25 00:31 Blood Pressure 152/99 H 02/18/25 00:31 Pulse Oximetry 97 02/18/25 00:31 Oxygen Delivery Room Air 02/17/25 16:30 MDM - Chest Pain Lab Data 02/17/25 16:58 02/17/25 16:58 Labs: Lab Results 02/17/25 02/17/25 02/17/25 Range/Units 16:57 16:58 19:27 WBC 8.3 (4.5-10.0) K/mm3 RBC 4.26 (4.2-5.4) M/mm3 Hgb 11.9 L (12.0-15.0) g/dL Hct 38.1 (37.0-47.0) % MCV 89.4 (80-100) fl MCH 27.9 (26-34) pg MCHC 31.2 L (32-36) g/dl RDW 13.1 (11.5-14.5) % Plt Count 294 (150-375) k/mm3 MPV 9.6 (7.4-10.4) fl Immature Gran % (Auto) 0.4 (0-0.5) % Neut % (Auto) 67.0 (45.5-73.1) % Lymph % (Auto) 21.1 (18.3-44.2) % [place] % (Auto) 8.0 (2.6-8.5) % Eos % (Auto) 2.9 (0-4.4) % Baso % (Auto) 0.6 (0.2-1.2) % Lymph # (Auto) 1.76 (0.9-3.2) K/mm3 [place] # (Auto) 0.7 H (0.1-0.6) K/mm3 Eos # (Auto) 0.2 (0-0.3) K/mm3 Baso # (Auto) 0.1 (0.0-0.1) K/mm3 Abs Immat Gran (auto) 0.03 (0.00-0.031) K/mm3 Absolute Neuts (auto) 5.6 (1.3-6.7) K/mm3 Absolute Nucleated RBC 0.000 (0.0-0.012) K/mm3 Nucleated RBC % 0.0 (0.0-0.2) % PT 13.0 (11.1-14.7) Seconds INR 1.0 APTT 23.4 (22.3-36.8) Seconds Sodium 139 (137-145) mmol/L Potassium 4.2 (3.4-5.0) mmol/L Chloride 106 (98-107) mmol/L Carbon Dioxide 20 L (22-30) mmol/L Anion Gap 13 H (4-12) mmol/L BUN 12 (7-17) mg/dL Creatinine 0.58 L (0.7-1.0) mg/dL Estim Creat Clear Calc 146 ml/min Estimated GFR > 60 (59 - ) Glucose 88 (65-110) mg/dL Calcium 9.6 (8.4-10.2) mg/dL Total Bilirubin 0.3 (0.2-1.3) mg/dL AST 29 (14-36) U/L ALT 20 (6-35) U/L Alkaline Phosphatase 70 (38-126) U/L Troponin I < 0.012 < 0.012 (0.000-0.034) ng/mL NT-Pro-B Natriuret Pep 308 H (19.9-100) pg/mL Total Protein 8.0 (6.3-8.2) g/dL Albumin 4.4 (3.5-5.1) g/dL Lipase 135 (23-300) U/L Serum HCG, Qual Negative 02/17/25 Range/Units 22:18 WBC (4.5-10.0) K/mm3 RBC (4.2-5.4) M/mm3 Hgb (12.0-15.0) g/dL Hct (37.0-47.0) % MCV (80-100) fl MCH (26-34) pg MCHC (32-36) g/dl RDW (11.5-14.5) % Plt Count (150-375) k/mm3 MPV (7.4-10.4) fl Immature Gran % (Auto) (0-0.5) % Neut % (Auto) (45.5-73.1) % Lymph % (Auto) (18.3-44.2) % [place] % (Auto) (2.6-8.5) % Eos % (Auto) (0-4.4) % Baso % (Auto) (0.2-1.2) % Lymph # (Auto) (0.9-3.2) K/mm3 [place] # (Auto) (0.1-0.6) K/mm3 Eos # (Auto) (0-0.3) K/mm3 Baso # (Auto) (0.0-0.1) K/mm3 Abs Immat Gran (auto) (0.00-0.031) K/mm3 Absolute Neuts (auto) (1.3-6.7) K/mm3 Absolute Nucleated RBC (0.0-0.012) K/mm3 Nucleated RBC % (0.0-0.2) % PT (11.1-14.7) Seconds INR APTT (22.3-36.8) Seconds Sodium (137-145) mmol/L Potassium (3.4-5.0) mmol/L Chloride (98-107) mmol/L Carbon Dioxide (22-30) mmol/L Anion Gap (4-12) mmol/L BUN (7-17) mg/dL Creatinine (0.7-1.0) mg/dL Estim Creat Clear Calc ml/min Estimated GFR (59 - ) Glucose (65-110) mg/dL Calcium (8.4-10.2) mg/dL Total Bilirubin (0.2-1.3) mg/dL AST (14-36) U/L ALT (6-35) U/L Alkaline Phosphatase (38-126) U/L Troponin I < 0.012 (0.000-0.034) ng/mL NT-Pro-B Natriuret Pep (19.9-100) pg/mL Total Protein (6.3-8.2) g/dL Albumin (3.5-5.1) g/dL Lipase (23-300) U/L Serum HCG, Qual Discharge Plan Discharge Clinical Impression: Chest pain Patient Disposition: Acute Care Hospital Condition: Stable Patient Language: Palestinian Prescriptions: No Action famotidine 40 mg Tablet 20 mg PO TID PRN (Reason: indegestion) aspirin [Children's Aspirin] 81 mg Tablet,Chewable 81 mg PO DAILY@0800 Qty: 30 5RF losartan 50 mg tablet 100 mg PO HS alprazolam 0.25 mg tablet 0.25 mg PO DAILY PRN (Reason: anxiety) Follow-up/Referrals: Fritz,ARNAV Gomez [Primary Care Provider] -
[2025-02-17 17:05] LABS: Basophils Absolute Auto 0.1 K/mm3 (0.0-0.1); Basophils Percent Auto 0.6 % (0.2-1.2); Eosinophils Absolute Auto 0.2 K/mm3 (0-0.3); Eosinophils Percent Auto 2.9 % (0-4.4); Hematocrit 38.1 % (37.0-47.0); Hemoglobin 11.9 g/dL (12.0-15.0); Immature Granulocyte Absolute 0.03 K/mm3 (0.00-0.031); Immature Granulocyte Percent A 0.4 % (0-0.5); Lymphocytes Absolute Auto 1.76 K/mm3 (0.9-3.2); Lymphocytes Percent Auto 21.1 % (18.3-44.2); Mean Corpuscular HGB Conc 31.2 g/dl (32-36); Mean Corpuscular Hemoglobin 27.9 pg (26-34); Mean Corpuscular Volume 89.4 fl (80-100); Mean Platelet Volume 9.6 fl (7.4-10.4); Monocytes Absolute Auto 0.7 K/mm3 (0.1-0.6); Neutrophils Absolute Auto 5.6 K/mm3 (1.3-6.7); Platelet Count Result 294 k/mm3 (150-375); Red Blood Count 4.26 M/mm3 (4.2-5.4); Red Cell Distribution Width 13.1 % (11.5-14.5); White Blood Count 8.3 K/mm3 (4.5-10.0)
[2025-02-17 17:23] LABS: Lipase 135 U/L (23-300)
[2025-02-17 17:24] LABS: Partial Thromboplastin Time 23.4 Seconds (22.3-36.8)
--- NOTE | 2025-02-17 17:41 | ED_ITS ---
HPI - Chest Pain General Chief Complaint: Chest Pain Stated Complaint: Quad bypass 01/01 - chest pain Time Seen by Provider: 02/17/25 17:40 Source: patient Mode of arrival: ambulatory Limitations: no limitations History of Present Illness HPI narrative: 44 YEARS OLD WHITE FEMALE STATUS POST QUADRUPLE BYPASS 6 WEEKS AGO AT [facility] CAME TO THE ED WITH PAIN AT THE LEFT CHEST RADIATING TO NECK AND LEFT SHOULDER AT REST, HEAVY, TIGHTNESS, WORSE WITH ANY EXERTION, PROBABLY BETTER AT REST. STARTED 03/17, CURRENTLY 12/15. PATIENT REPORTS SOME CHILLS, PATIENT WORKS FROM HOME. SHE DENIES ANY SHORTNESS OF BREATH, FEVER, NAUSEA OR VOMITING. HISTORY OF HYPERTENSION HYPERLIPIDEMIA GERD AND QUADRUPLE BYPASS. PATIENT VAPES, DOES NOT DRINK OR USE DRUGS Related Data Home Medications ?Medication ?Instructions ?Recorded ?Confirmed ?Last Taken ?Type famotidine 40 mg tablet 20 mg PO TID PRN indegestion 07/11/20 12/26/24 12/15/21 History losartan 50 mg tablet 100 mg PO HS 12/26/24 12/27/24 Unknown History alprazolam 0.25 mg tablet 0.25 mg PO DAILY PRN anxiety 12/27/24 12/27/24 Unknown History Allergies Allergy/AdvReac Type Severity Reaction Status Date / Time erythromycin base Allergy Unknown Verified 12/25/24 22:43 Review of Systems 2 Review of Systems: All systems reviewed & are unremarkable except as noted in HPI and below PMFSH Past Medical History Medical History Essential hypertension Polycystic ovarian syndrome Gastroesophageal reflux disease Coronary artery disease (~02/2017) STEMI (ST elevation myocardial infarction) (02/2021) Tobacco abuse Obesity Surgical History Surgical History History of cardiac catheterization (02/21/21) And 12/12/2021 History of coronary artery stent placement 02/21/2021: Drug-eluting stent to the right coronary artery 12/12/2021 3.5 x 15 mm drug-eluting stent to the LAD due to 95% stenosis proximal LAD Family History Family History Father CAD (coronary artery disease) Acute myocardial infarction Hypertension Daughter No problems noted. Mother Lung cancer Cancer Sibling Hypertension Acute myocardial infarction Social History Social History Social History: Surrogate decision maker: Vonnie Laird, sister. Code status: Full code. Smoking packs per day: 1.5 Smoking cigarettes per day: 30.0 Years smoked: 26 Smoking pack-years: 39.00 Smoking status: Former smoker Tobacco type: cigarettes Smoking end date: 12/09/21 Alcohol intake: never Substance use: never Substance use type: does not use Do You Feel Safe in your Home?: Yes Lack of Transportation: No Lack of Food: Never True Current Housing: I Have Housing Concerned About Future Housing: No Difficulty Paying Gas/Electric Bills: No Difficulty Paying for Meds: No Currently Unemployed: No Education: High School Diploma/GED Difficulty w/ Childcare or Family Care: No Spiritual care concerns: No Exam 2 Narrative: GENERAL APPEARANCE: WELL-DEVELOPED, WELL-NOURISHED SKIN: NORMAL COLOR HEAD: NORMOCEPHALIC, NONTRAUMATIC EYES: CLEAR CONJUNCTIVA ENT: OROPHARYNX NORMAL, EARS NORMAL, NOSE NORMAL NECK: SUPPLE, NONTENDER CHEST AND RESPIRATORY: AIRWAY PATENT, NO RESPIRATORY DISTRESS, NO ACCESSORY MUSCLE USE SURGICAL WOUND DRY AND CLEAN HEART: REGULAR RATE/RHYTHM ABDOMEN: SOFT, NONTENDER, NO ORGANOMEGALY, QUIET BOWEL SOUNDS VASCULAR: NORMAL PERIPHERAL PULSES, NORMAL CAPILLARY REFILL. MUSCULOSKELETAL: NORMAL RANGE OF MOTION, NONTENDER BACK NEUROLOGIC: ALERT AND ORIENTED ?3, FISHER POT IS NORMAL TESTED, NO GROSS MOTOR DEFICIT Course Consultations Consultation #1: DR MANCUSO HOSPITALIST AT [facility] WHO ACCEPTED PATIENT TRANSFER Date: 02/17/25 Time: 19:31 Vital Signs Vital signs: Vital Signs Temperature 36.6 C 02/17/25 16:16 Pulse Rate 84 02/17/25 16:16 Respiratory Rate 18 02/17/25 16:16 Blood Pressure 180/105 H 02/17/25 16:16 Pulse Oximetry 100 02/17/25 16:16 Oxygen Delivery Room Air 02/17/25 16:16 Temperature 36.6 C 02/17/25 16:16 Pulse Rate 84 02/17/25 16:16 Respiratory Rate 18 02/17/25 16:16 Blood Pressure 180/105 H 02/17/25 16:16 Pulse Oximetry 100 02/17/25 16:16 Oxygen Delivery Room Air 02/17/25 16:16 MDM - Chest Pain MDM Narrative Medical decision making narrative: PATIENT CAME WITH LEFT CHEST PAIN RADIATING TO NECK AND LEFT SHOULDER, STATUS POST QUADRUPLE BYPASS 6 WEEKS AGO. VITAL SIGNS SHOWING BLOOD PRESSURE 180/1 5 OTHERWISE WITHIN NORMAL LIMIT PHYSICAL EXAMINATION SHOWING QUADRUPLE BYPASS CHEST SURGICAL SCAR WHICH IS DRY AND CLEAN DIFFERENTIAL DIAGNOSIS: HEALING PROCESS OF THE BREAST BONE AND SURROUNDING TISSUE, PAIN USUALLY SUBSIDES WITHIN 6-12 MONTHS, MUSCULOSKELETAL PAIN, ANGINA RECURRENCE, POST STERNOTOMY PAIN SYNDROME BLOOD WORKUP TODAY INCLUDES CBC, CMP, TROPONIN SHOWED PRO BMP 308, OTHERWISE INSIGNIFICANT ABNORMALITIES CHEST X-RAY SHOWED NO ACUTE ABNORMALITY EKG SHOWED NORMAL SINUS RHYTHM, INFERIOR AND ANTERIOR LATERAL MYOCARDIAL INFARCTION OF INDETERMINATE AGE ADMIT TO HOSPITALIST DIAGNOSIS POST QUADRUPLE BYPASS CHEST PAIN PATIENT DECLINED TO BE HOSPITALIZED IN OUR FACILITY AND WOULD LIKE TO BE TRANSFERRED TO [facility]. PATIENT GOT ACCEPTED TO [facility] DISCUSSED WITH THE HOSPITALIST ON- CALL Differential Diagnosis Differential diagnosis: Likely other ( ABOVE) Medical Records Data Attestation: I reviewed the patient's medical records. Lab Data Attestation: I reviewed the patient's lab results. 02/17/25 16:58 02/17/25 16:58 Labs: Lab Results 02/17/25 Range/Units 16:58 WBC 8.3 (4.5-10.0) K/mm3 RBC 4.26 (4.2-5.4) M/mm3 Hgb 11.9 L (12.0-15.0) g/dL Hct 38.1 (37.0-47.0) % MCV 89.4 (80-100) fl MCH 27.9 (26-34) pg MCHC 31.2 L (32-36) g/dl RDW 13.1 (11.5-14.5) % Plt Count 294 (150-375) k/mm3 MPV 9.6 (7.4-10.4) fl Immature Gran % (Auto) 0.4 (0-0.5) % Neut % (Auto) 67.0 (45.5-73.1) % Lymph % (Auto) 21.1 (18.3-44.2) % [place] % (Auto) 8.0 (2.6-8.5) % Eos % (Auto) 2.9 (0-4.4) % Baso % (Auto) 0.6 (0.2-1.2) % Lymph # (Auto) 1.76 (0.9-3.2) K/mm3 [place] # (Auto) 0.7 H (0.1-0.6) K/mm3 Eos # (Auto) 0.2 (0-0.3) K/mm3 Baso # (Auto) 0.1 (0.0-0.1) K/mm3 Abs Immat Gran (auto) 0.03 (0.00-0.031) K/mm3 Absolute Neuts (auto) 5.6 (1.3-6.7) K/mm3 Absolute Nucleated RBC 0.000 (0.0-0.012) K/mm3 Nucleated RBC % 0.0 (0.0-0.2) % PT 13.0 (11.1-14.7) Seconds INR 1.0 APTT 23.4 (22.3-36.8) Seconds Sodium 139 (137-145) mmol/L Potassium 4.2 (3.4-5.0) mmol/L Chloride 106 (98-107) mmol/L Carbon Dioxide 20 L (22-30) mmol/L Anion Gap 13 H (4-12) mmol/L BUN 12 (7-17) mg/dL Creatinine 0.58 L (0.7-1.0) mg/dL Estim Creat Clear Calc 146 ml/min Estimated GFR > 60 (59 - ) Glucose 88 (65-110) mg/dL Calcium 9.6 (8.4-10.2) mg/dL Total Bilirubin 0.3 (0.2-1.3) mg/dL AST 29 (14-36) U/L ALT 20 (6-35) U/L Alkaline Phosphatase 70 (38-126) U/L Troponin I < 0.012 (0.000-0.034) ng/mL NT-Pro-B Natriuret Pep 308 H (19.9-100) pg/mL Total Protein 8.0 (6.3-8.2) g/dL Albumin 4.4 (3.5-5.1) g/dL Lipase 135 (23-300) U/L Imaging Data Radiologist's impression: Impressions Chest X-Ray 02/17/25 16:37 IMPRESSION: No acute cardiopulmonary process. ECG Data EKG #1: Attestation: I personally reviewed and interpreted this ECG as follows: Interpretation: NORMAL SINUS RHYTHM AT 87 BEATS PER MINUTE, LEFT ATRIAL ENLARGEMENT, INFERIOR MYOCARDIAL INFARCTION, ANTERIOR LATERAL MYOCARDIAL INFARCTION OF INDETERMINATE AGE, COMPARED TO EKG ON DECEMBER 26, 2024 MYOCARDIAL INFARCTION FINDING NOW PRESENT Critical Care Time Critical Care Time Critical Care Time: No Discharge Plan Discharge Clinical Impression: Chest pain Patient Disposition: Still a Patient Condition: Stable Patient Language: Belarusian Prescriptions: No Action famotidine 40 mg Tablet 20 mg PO TID PRN (Reason: indegestion) aspirin [Children's Aspirin] 81 mg Tablet,Chewable 81 mg PO DAILY@0800 Qty: 30 5RF losartan 50 mg tablet 100 mg PO HS alprazolam 0.25 mg tablet 0.25 mg PO DAILY PRN (Reason: anxiety) Follow-up/Referrals: Fritz,ARNAV Gomez [Primary Care Provider] -
[2025-02-17 18:12] LABS: Alanine Aminotransferase 20 U/L (6-35); Albumin Level 4.4 g/dL (3.5-5.1); Alkaline Phosphatase 70 U/L (38-126); Anion Gap 13 mmol/L (4-12); Aspartate Amino Transferase 29 U/L (14-36); Bilirubin,Total 0.3 mg/dL (0.2-1.3); Blood Urea Nitrogen 12 mg/dL (7-17); Calcium 9.6 mg/dL (8.4-10.2); Carbon Dioxide 20 mmol/L (22-30); Chloride 106 mmol/L (98-107); Estimated CRCL calculation 146 ml/min; Estimated Glomerular Filt Rate > 60; Glucose 88 mg/dL (65-110); Potassium 4.2 mmol/L (3.4-5.0); Sodium 139 mmol/L (137-145)
[2025-02-17 18:24] LABS: NT Pro B Type Natriuretic Pept 308 pg/mL (19.9-100); Troponin I < 0.012 ng/mL (0.000-0.034)
--- OUTSIDE RECORDS SUMMARY | 2025-02-17 18:45 | XMS_ITS | Clinical Summary ---
Author Organization [facility] [address] Address [address] [place] [address] Care Team Providers Care Supervisor Curing Room Name Role Phone Aleida Hu Primary Care Provider + Didier Quispe MD Unavailable [phone] Angelique Durant NP Unavailable [phone] Allergies Active Allergy Reactions Criticality Noted Date Comments Erythromycin Other (See comments) Low 05/03/2019 States she was a baby and was told she was allergic Metoprolol Dizziness Low 12/30/2024 Lbogtnf-Aiv-Nzf Reductase Inhibitors Muscle pain Medium 12/30/2024 Medications [...] unspecified 04/24/2023 Body mass index 40.0-44.9, adult ([facility]) 01/09 Morbid (severe) obesity due to excess calories 0 02/28/2022 Coronary artery disease invo lving anvik coronary artery of anvik heart without angina pectoris 05/12/2021 History of coronary artery stent placement 05/12 Encounters Date Type Department Care Team Description 02/11/2025 Orders Only [facility] Surgery [address] [place] [address] [address] [place] [address] Violeta Morelos NP Hx of CABG (Primary Dx) 02/09/2025 Orders Only [facility] Surgery [address] [place] [address] [address] [place] [address] Herrera Lin NP Coronary artery disease involving anvik coronary artery of anvik heart without angina pectoris (Primary Dx) 02/06/2025 9:00 AM CDT Office Visit [facility] Surgery [address] [place] [address] [address] [place] [address] Didier Quispe MD Coronary artery disease involving anvik coronary artery of anvik heart without angina pectoris 01/29/2025 Telephone [facility] Cardiology [address] [facility] [address] [place] [phone] Remi Gomes MD 01/17/2025 Orders Only [facility] Surgery [address] [place] [address] [address] [place] [address] Violeta Morelos NP 01/13/2025 [facility] Post Discharge Follow up phone call [address] [address] Iza Vasquez 01/12/2025 Documentation [facility] Surgery [address] [place] [phone] Dayne Moura NP 01/12/2025 Orders Only [facility] Surgery [address] [place] [address] Dayne Moura NP 01/01/2025 8:51 AM CDT Anesthesia Event [facility] Operating Room [id number] [place] [address] Fifi Keys MD Becker, Scott C 01/01/2025 8:20 AM CDT - 01/01/2025 2:05 PM CDT Surgery [facility] Operating Room [id number] [place] [address] Didier Quispe MD CORONARY ARTERY BYPASS GRAFT - INTERNAL MAMMARY/RADIAL ARTERY/SAPHENOUS VEIN GRAFT - LEG 01/01/2025 Orders Only [facility] Cardiology [address] [place] [phone] Roger Turcios MD 12/27/2024 5:50 PM CDT - 01/06/2025 6:42 PM CDT Hospital Encounter [facility] [address] [place] [address] Gus Higgins DO Rudomiotov, Olga, MD Ray, Shuddhadeb, MD Coronary artery disease involving anvik coronary artery of anvik heart without angina pectoris (Primary Dx); Presence of stent in coronary artery Discharge Disposition: Discharge to home, home health skilled care 12/27/2024 Orders Only [facility] Health Information Management [address] [place] [address] Roger Turcios MD 12/26/2024 Telephone [facility] Cardiology [address] [place] [address] Roger Turcios MD from Last [...] Tobacco: Never Tobacco Cessation:Counseling Given: Not Answered [facility] Utilities Answer Date Recorded In the past 12 months has th e [employer], [employer], oil, or water [employer] threatened to shut off services in your [...] often do you attend chur ch or congregational services? Never 12/30/2024 Do you belong to any clubs o r organizations such as restoration groups, unions, fraternal or athletic groups, or [...] any time in the past 12 m [facility], were you homeless or living in a senior living (including now)? No 12/30/2024 Personal Safety Answer [...] this topic Medical Devices Implanted Type Area Breast Worker Device Identifier Shelf Expiration Date Model / Serial / Lot [employer] Plate Bone Low Profile 6 Hole O Shape Sternum Ti 115.104.06 - [id number] Implanted:Qty: 1 on 01/01/2025 by Didier Quispe MD at [facility] Plate N/A: Sternum [employer] 115.104.06 / / [employer] Plate Bone Low Profile 4 Hole Box Sternum Ti 115.103.04 - [id number] Implanted:Qty: 1 on 01/01/2025 by Didier Quispe MD at [facility] Plate N/A: Sternum [employer] 115.103.04 / / [employer] Plate Bone Low Profile 6 Hole H Shape Sternum Ti 115.102.06 - [id number] Implanted:Qty: 1 on 01/01/2025 by Didier Quispe MD at [facility] Plate N/A: Sternum [employer] 115.102.06 / / [employer] Screw Bone Slf Drl Full Thread Locking 3.5x18mm Ti 100.035.18 - [id number] Implanted:Qty: 16 on 01/01/2025 by Didier Quispe MD at [facility] Screw N/A: Sternum [employer] 100.035.18 / / Explanted Type Area Breast Worker Device Identifier Shelf Expiration Date Model / Serial / Lot [employer] Shunt Coronary Soft Conical Bulb Turkey [id number] Silicone [id number] - S00 - [id number] Explanted:Qt y: 1 on 01/01/2025 by Didier Quispe MD at [facility] Intraatrial Shunt Device N/A: Coronary Artery [employer] 02/20/2027 [id number] / 00 / [id number] Procedures Procedure Name Priority Date/Time Associated [...] 6:57 AM CDT Coronary artery disease involving anvik coronary artery of anvik heart without angina pectoris XR CHEST 1 [...] 9:29 PM CDT Coronary artery disease involving anvik coronary artery of anvik heart without angina pectoris CALCIUM,IONIZED, WHOLE BLOOD [...] 6:53 AM CDT Coronary artery disease involving anvik coronary artery of anvik heart without angina pectoris POCT GLUCOSE DEVICE [...] 7:43 PM CDT Coronary artery disease involving anvik coronary artery of anvik heart without angina pectoris POCT GLUCOSE DEVICE [...] 3:05 PM CDT Coronary artery disease involving anvik coronary artery of anvik heart without angina pectoris POC BLOOD GAS [...] LINE PLACEMENT Routine 01/01/2025 10:03 AM CDT SC AN ELECTIVE ENDOTRACHEAL AIRWAY Routine 01/01/2025 10:02 [...] 8:50 AM CDT Coronary artery disease of anvik heart with stable angina pectoris, unspecified vessel [...] FINDINGS: The distal tip of the retracted Larose-Lindsay catheter is in the superior vena cava. [...] FINDINGS: The distal tip of the retracted Larose-Lindsay catheter is in the superior vena cava. Lungs clear other than for subsegmental atelectasis in the medial left lower lobe. Cardiovascular structures unremarkable. IMPRESSION: No active disease. Electronically signed by: Nilson Solomon M.D. Herrera Lin SALES AGENT [employer] IMG XR PROCEDURES Final Re sult * [...] 01/06/2025 7:24 AM CDT us Dayne Moura SALES AGENT [employer] LAB BLOOD ORDERABLES Final Result NOEMI HAWK [address] Department of [employer] [place] [address] * (ABNORMAL) CBC without differential (01/06/2025 6:25 AM CDT) WBC 7.5 3.8 - 9.9 K/cumm Hgb 9.1(L) 11.9 - 15.5 g/dL [facility] Hct 27.6(L) 35.6 - 45.5 % [facility] Plt 267 150 - 400 K/cumm [facility] MPV 10.1 9.1 - 12.3 fL [facility] RBC 2.97(L) 3.90 - 5.20 M/cumm [facility] MCV 92.9 81.3 - 96.4 fL [facility] MCH 30.6 27.1 - 33.3 pg [facility] MCHC 33.0 32.3 - 35.7 g/dL [facility] RDW CV 13.6 11.1 - 14.9 % [facility] RDW SD 46.1 35.7 - 48.1 fL [facility] NRBC abs 0.00 0.00 - 0.01 K/cumm [facility] Blood 01/06/2025 6:25 AM CDT 01/06/2025 7:24 AM CDT Dayne Moura NP LAB BLOOD ORDERABLES Final Result NOEMI ARECHIGA [address] Department [place] [address] * Basic metabolic panel (01/06/2025 6:25 AM CDT) Sodium 140 135 - 145 mmol/L Potassium, pl 3.7 3.3 - 4.9 mmol/L [facility] Chloride 105 97 - 110 mmol/L [facility] CO2 22 22 - 32 mmol/L [facility] Anion gap 13 2 - 15 mmol/L [facility] BUN 12 6 - 25 mg/dL [facility] Creatinine 0.79 0.60 - 1.10 mg/dL [facility] Glucose 100 70 - 199 mg/dL [facility] Comment: Interpretive Data Fasting glucose >/= [...] 2022. Calcium 8.8 8.5 - 10.3 mg/dL [facility] Blood 01/06/2025 6:25 AM CDT 01/06/2025 7:24 AM CDT Dayne Moura NP LAB BLOOD ORDERABLES Final Result NOEMI ARECHIGA [address] Department [place] [address] * XR Chest PA Lateral 2 Views [...] by: Dewey Wylie II, D.O. Dayne Moura SALES AGENT [employer] IMG XR PROCEDURES Final Res ult * [...] CDT 01/05/2025 6:09 AM CDT Dayne Moura SALES AGENT [employer] LAB BLOOD ORDERABLES Final Result Performing Organization Address [facility] Co de Phone Number NOEMI ARECHIGA [address] [facility] [employer] [place] [address] * (ABNORMAL) aPTT (01/05/2025 5:13 AM CDT) aPTT 27(L) 28 - 38 sec Comment: Interpretive Data Heparin therapeutic range: 66.0 - 100.0 seconds. Range based on correlation with therapeutic heparin activity range of 0.3 - 0.7 Units/mL. Current interpretive data was last revised on 2023. Blood 01/05/2025 5:13 AM CDT 01/05/2025 6:10 AM CDT Dayne Moura SALES AGENT [employer] LAB BLOOD ORDERABLES Final Result Performing Organization Address [facility] de Phone Number NOEMI ARECHIGA [address] [facility] [employer] [place] [address] * Protime-INR (01/05/2025 5:13 AM CDT) PT [...] CDT 01/05/2025 6:10 AM CDT Dayne Moura SALES AGENT [employer] LAB BLOOD ORDERABLES Final Result Performing Organization Address [facility] de Phone Number NOEMI ARECHIGA [address] [address] [facility] [employer] [place] [address] * (ABNORMAL) CBC without differential (01/05/2025 5:13 AM CDT) Pathologist [facility] WBC 8.1 3.8 - 9.9 K/cumm Hgb 8.4(L) 11.9 - 15.5 g/dL [facility] Hct 26.3(L) 35.6 - 45.5 % [facility] Plt 210 150 - 400 K/cumm [facility] MPV 10.3 9.1 - 12.3 fL [facility] RBC 2.81(L) 3.90 - 5.20 M/cumm [facility] MCV 93.6 81.3 - 96.4 fL [facility] MCH 29.9 27.1 - 33.3 pg [facility] MCHC 31.9(L) 32.3 - 35.7 g/dL [facility] RDW CV 13.6 11.1 - 14.9 % [facility] RDW SD 46.5 35.7 - 48.1 fL [facility] NRBC abs 0.00 0.00 - 0.01 K/cumm [facility] Blood 01/05/2025 5:13 AM CDT 01/05/2025 6:10 AM CDT Dayne Moura NP LAB BLOOD ORDERABLES Final Result [facility] [address] Department [place] [address] * Basic metabolic panel (01/05/2025 5:13 AM CDT) [facility] Sodium 139 135 - 145 mmol/L Potassium, pl 3.7 3.3 - 4.9 mmol/L [facility] Chloride 105 97 - 110 mmol/L [facility] CO2 22 22 - 32 mmol/L [facility] Anion gap 12 2 - 15 mmol/L [facility] BUN 12 6 - 25 mg/dL [facility] Creatinine 0.73 0.60 - 1.10 mg/dL [facility] Glucose 105 70 - 199 mg/dL [facility] Comment: Interpretive Data Fasting glucose >/= [...] CDT 01/05/2025 6:09 AM CDT Dayne Moura SALES AGENT [employer] LAB BLOOD ORDERABLES Final Result Performing Organization Address [facility] de Phone Number NOEMI [address] [address] [facility] [employer] [place] [address] * POCT glucose (01/04/2025 9:45 PM CDT) Glucose, POC 115 70 - 199 mg/dL POC Performer [id number] [facility] Blood 01/04/2025 9:45 PM CDT 01/04/2025 9:45 PM CDT Didier Quispe MD LAB POCT ORDERABLES - DEVICE F inal Result Performing Organization Address [facility] de Phone Number NOEMI [address] [address] [employer] [place] [address] * POCT glucose (01/04/2025 7:43 AM CDT) Glucose, POC 103 70 - 199 mg/dL POC Performer [id number] [facility] Blood 01/04/2025 7:43 AM CDT 01/04/2025 7:43 AM CDT Didier Quispe MD LAB POCT ORDERABLES - DEVICE F inal Result Performing Organization Address [facility]/State/ZIP Co de Phone Number NOEMI ARECHIGA [address] [address] Department [place] [address] * XR Chest 1 View - Portable [...] Moura NP LAB BLOOD ORDERABLES Final Result [facility] [address] Department [place] [address] * (ABNORMAL) CBC without differential (01/04/2025 5:10 AM CDT) WBC 10.8(H) 3.8 - 9.9 K/cumm Hgb 8.3(L) 11.9 - 15.5 g/dL [facility] Hct 25.9(L) 35.6 - 45.5 % [facility] Plt 173 150 - 400 K/cumm [facility] MPV 10.5 9.1 - 12.3 fL [facility] RBC 2.78(L) 3.90 - 5.20 M/cumm [facility] MCV 93.2 81.3 - 96.4 fL [facility] MCH 29.9 27.1 - 33.3 pg [facility] MCHC 32.0(L) 32.3 - 35.7 g/dL [facility] RDW CV 13.7 11.1 - 14.9 % [facility] RDW SD 47.1 35.7 - 48.1 fL [facility] NRBC abs 0.00 0.00 - 0.01 K/cumm [facility] Blood 01/04/2025 5:10 AM CDT 01/04/2025 6:20 AM CDT us Dayne Olya Martell SALES AGENT [employer] LAB BLOOD ORDERABLES Final Result Performing Organization Address City/[facility]/ZIP Co de Phone Number NOEMI [address] [address] [facility] [employer] [place] [address] * Magnesium (01/04/2025 5:10 AM CDT) Pathologist [facility] Magnesium 2.2 1.4 - 2.5 mg/dL Blood 01/04/2025 5:10 AM CDT 01/04/2025 6:21 AM CDT Danye Moura SALES AGENT [employer] LAB BLOOD ORDERABLES Final Result Performing Organization Address [facility] Co de Phone Number [facility] [address] [address] [facility] [employer] [place] [address] * Basic metabolic panel (01/04/2025 5:10 AM CDT) Pathologist [facility] Sodium 139 135 - 145 mmol/L Potassium, pl 4.3 3.3 - 4.9 mmol/L [facility] Chloride 107 97 - 110 mmol/L [facility] CO2 22 22 - 32 mmol/L [facility] Anion gap 10 2 - 15 mmol/L [facility] BUN 11 6 - 25 mg/dL [facility] Creatinine 0.73 0.60 - 1.10 mg/dL [facility] Glucose 107 70 - 199 mg/dL [facility] Comment: Interpretive Data Fasting glucose >/= [...] CDT 01/04/2025 6:21 AM CDT Dayne Moura SALES AGENT [employer] LAB BLOOD ORDERABLES Final Result Performing Organization Address [facility]/ZIP Co de Phone Number NOEMI ARECHIGA [address] [address] [facility] [employer] [place] [address] * POCT glucose (01/03/2025 8:07 PM CDT) [facility] Glucose, POC 130 70 - 199 mg/dL POC Performer [id number] [facility] Blood 01/03/2025 8:07 PM CDT 01/03/2025 8:07 PM CDT Didier Quispe MD LAB POCT ORDERABLES - DEVICE F inal Result Performing Organization Address [facility] Co de Phone Number NOEMI ARECHIGA [address] [address] [employer] [place], [place] [id number] * Calcium, ionized, whole blood (01/03/2025 1:35 PM CDT) [facility] Ca, ionized, bld 4.63 4.50 - 5.10 mg/dL Blood 01/03/2025 1:35 PM CDT 01/03/2025 1:39 PM CDT Carolin Feng SALES AGENT [employer] LAB BLOOD ORDERABLES F inal Result Performing Organization Address [facility] Co de Phone Number NOEMI [address] [address] Department [place] [employer] [place] [address] * eGFR (01/03/2025 1:35 PM CDT) [facility] eGFR >90 >=60 mL/min/1. 73 m2 Comment: [...] CDT 01/03/2025 1:49 PM CDT Carolin Feng SALES AGENT [employer] LAB BLOOD ORDERABLES F inal Result Performing Organization Address City/[facility]/ZIP Co de Phone Number [facility] [address] [place], [place] [id number] * Magnesium (01/03/2025 1:35 PM CDT) Pathologist [facility] Magnesium 2.2 1.4 - 2.5 mg/dL Blood 01/03/2025 1:35 PM CDT 01/03/2025 1:39 PM CDT Carolin Feng SALES AGENT [employer] LAB BLOOD ORDERABLES F inal Result Performing Organization Address [facility] Co de Phone Number [facility] [address] [address] [employer] [place], [place] [id number] * (ABNORMAL) Renal function panel (01/03/2025 1:35 PM CDT) Sodium 137 135 - 145 mmol/L Potassium, pl 4.4 3.3 - 4.9 mmol/L [facility] Chloride 107 97 - 110 mmol/L [facility] CO2 20(L) 22 - 32 mmol/L [facility] Anion gap 10 2 - 15 mmol/L [facility] BUN 10 6 - 25 mg/dL [facility] Creatinine 0.71 0.60 - 1.10 mg/dL [facility] Glucose 114 70 - 199 mg/dL [facility] Comment: Interpretive Data Fasting glucose >/= [...] ORDERABLES F inal Result Performing Organization Address [facility] Co de Phone Number NOEMI ARECHIGA [address] [address] [place] [address] * POCT glucose (01/03/2025 12:18 PM CDT) Glucose, POC 113 70 - 199 mg/dL POC Performer [id number] [facility] Blood 01/03/2025 12:1 8 PM CDT 01/03/2025 12:18 PM CDT Didier Quispe MD LAB POCT ORDERABLES - DEVICE F inal Result Performing Organization Address City/[facility]/ZIP Co de Phone Number NOEMI [address] [address] [place] [address] * POCT glucose (01/03/2025 7:37 AM CDT) Glucose, POC 126 70 - 199 mg/dL POC Performer [id number] [facility] Blood 01/03/2025 7:37 AM CDT 01/03/2025 7:37 AM CDT Didier Quispe MD LAB POCT ORDERABLES - DEVICE F inal Result NOEMI ARECHIGA [address] [facility] Department [place] [address] * Critical Care (01/03/2025 6:57 AM CDT) [...] plan with the patient's team and other medical/guidance consultant staff. This time was in addition [...] pneumothorax or pleural effusion. Procedure Note Baudilio Hoagn MD - 01/03/2025 EXAMINATION: XR CHEST 1 [...] BLOOD ORDERABLES Final Res ult NOEMI ARECHIGA [address] [address] Department [place] [address] * Calcium, ionized, whole blood (01/03/2025 3:49 AM CDT) Ca, ionized, bld 5.07 4.50 - 5.10 mg/dL Blood 01/03/2025 3:49 AM CDT 01/03/2025 3:55 AM CDT Dayne Moura SALES AGENT [employer] LAB BLOOD ORDERABLES Final Result NOEMI ARECHIGA [address] [address] [employer] [place] [address] * eGFR (01/03/2025 3:49 AM CDT) eGFR [...] LAB BLOOD ORDERABLES Final Result NOEMI ARECHIGA [address] [address] Department [employer] [place] [address] * POCT glucose (01/03/2025 3:49 AM CDT) Glucose, POC 121 70 - 199 mg/dL POC Performer [id number] [facility] Blood 01/03/2025 3:49 AM CDT 01/03/2025 3:49 AM CDT Didier Quispe MD LAB POCT ORDERABLES - DEVICE F inal Result Performing Organization Address City/[facility]/ZIP Co de Phone Number NOEMI ARECHIGA [address] [address] [place] [address] * (ABNORMAL) CBC without differential (01/03/2025 3:49 AM CDT) WBC 11.9(H) 3.8 - 9.9 K/cumm Hgb 8.9(L) 11.9 - 15.5 g/dL [facility] Hct 28.0(L) 35.6 - 45.5 % [facility] Plt 154 150 - 400 K/cumm [facility] MPV 10.2 9.1 - 12.3 fL [facility] RBC 3.01(L) 3.90 - 5.20 M/cumm [facility] MCV 93.0 81.3 - 96.4 fL [facility] MCH 29.6 27.1 - 33.3 pg [facility] MCHC 31.8(L) 32.3 - 35.7 g/dL [facility] RDW CV 13.5 11.1 - 14.9 % [facility] RDW SD 46.5 35.7 - 48.1 fL [facility] NRBC abs 0.00 0.00 - 0.01 K/cumm [facility] Blood 01/03/2025 3:49 AM CDT 01/03/2025 3:56 AM CDT us Dayne Moura NP LAB BLOOD ORDERABLES Final Result Performing Organization Address City/[facility]/ZIP Co de Phone Number NOEMI ARECHIGA [address] [address] [place] [address] * Magnesium (01/03/2025 3:49 AM CDT) Magnesium 1.9 1.4 - 2.5 mg/dL Blood 01/03/2025 3:49 AM CDT 01/03/2025 3:56 AM CDT Dayne Moura NP LAB BLOOD ORDERABLES Final Result NOEMI [address] [address] Department [place] [address] * (ABNORMAL) Basic metabolic panel (01/03/2025 3:49 AM CDT) Sodium 139 135 - 145 mmol/L Potassium, pl 4.4 3.3 - 4.9 mmol/L [facility] Chloride 106 97 - 110 mmol/L [facility] CO2 22 22 - 32 mmol/L [facility] Anion gap 11 2 - 15 mmol/L [facility] BUN 9 6 - 25 mg/dL [facility] Creatinine 0.76 0.60 - 1.10 mg/dL [facility] Glucose 116 70 - 199 mg/dL [facility] Comment: Interpretive Data Fasting glucose >/= [...] 2022. Calcium 8.4(L) 8.5 - 10.3 mg/dL [facility] Blood 01/03/2025 3:49 AM CDT 01/03/2025 3:56 AM CDT Dayne Moura NP LAB BLOOD ORDERABLES Final Result NOEMI ARECHIGA [address] [address] Department [place] [address] * POCT glucose (01/03/2025 12:03 AM CDT) Glucose, POC 139 70 - 199 mg/dL POC Performer [id number] NOEMI ARECHIGA Blood 01/03/2025 12:0 3 AM CDT 01/03/2025 12:03 AM CDT Result [facility] Didier Quispe MD LAB POCT ORDERABLES - DEVICE F inal Result NOEMI [address] [address] Department [place] [address] * Critical Care (01/02/2025 9:29 PM CDT) [...] plan with the ICU team and other medical/guidance consultant staff, making frequent assessments and decisions [...] time documenting in the medical record Result [facility] Shanon JOSÉ IN CLINIC/BEDSIDE ORDERA BLES Final Result * (ABNORMAL) Calcium, ionized, whole blood (01/02/2025 8:56 PM CDT) Ca, ionized, bld 5.25(H) 4.50 - 5.10 mg/dL Blood 01/02/2025 8:56 PM CDT 01/02/2025 8:59 PM CDT Didier Quispe MD LAB BLOOD ORDERABLES Final Res ult Performing Organization Address [facility] de Phone Number NOEMI ARECHIGA [address] [address] Department [place] [address] * (ABNORMAL) Blood gas, arterial (01/02/2025 8:56 [...] ORDERABLES Final Res ult Performing Organization Address [facility] de Phone Number NOEMI ARECHIGA [address] [address] Department [place] [address] * XR Chest 1 Vw Portable (01/02/2025 [...] lungs are clear. Bilateral thoracostomy tubes and Larose-Lindsay catheter are in good position. Procedure Note [...] lungs are clear. Bilateral thoracostomy tubes and Larose-Lindsay catheter are in good position. IMPRESSION: No change since the last study. Electronically signed by: Nilson Solomon M.D. Didier Quispe MD IMG XR PROCEDURES Final Result * POCT glucose (01/02/2025 7:42 PM CDT) Glucose, POC 124 70 - 199 mg/dL POC Performer [id number] [facility] Blood 01/02/2025 7:42 PM CDT 01/02/2025 7:42 PM CDT Didier Quispe MD LAB POCT ORDERABLES - DEVICE F inal Result Performing Organization Address [facility] Co de Phone Number [facility] [address] [address] Department [place] [address] * POCT glucose (01/02/2025 5:33 PM CDT) Glucose, POC 115 70 - 199 mg/dL POC Performer [id number] [facility] Blood 01/02/2025 5:33 PM CDT 01/02/2025 5:33 PM CDT Didier Quispe MD LAB POCT ORDERABLES - DEVICE F inal Result Performing Organization Address City/[facility]/ZIP Co de Phone Number [facility] [address] Department [place] [address] * ECG 12 lead (01/02/2025 4:58 PM CDT) 01/02/2025 4:58 PM CDT Narrative [facility] - 01/02/2025 9:08 PM CDT Vent Rate: 116 bpm RR Interval: 513 msec SC Interval: 136 msec QRS Duration: 85 msec QT Interval: 338 msec QTC Interval: 407 msec P-R-T Tilton: 37 - 84 - 50 degrees IMPRESSION: SINUS TACHYCARDIA POSSIBLE ANTERIOR MYOCARDIAL INFARCTION , OF INDETERMINATE AGE [30 ms Q WAVE IN V3/V4, OR R < 0.2 mV IN V4] POSSIBLE INFERIOR MYOCARDIAL INFARCTION , OF INDETERMINATE AGE [30 ms Q WAVE IN II/aVF] ABNORMAL ECG Electronically Signed By: Dr. Rivera Epps Nhi Pruett MD ECG ORDERABLES Final Result Performing Organization Address [facility] Phone Number [facility] * (ABNORMAL) Calcium, ionized, whole blood (01/02/2025 1:31 PM CDT) Pathologist [facility] [place] Ca, ionized, bld 4.41(L) 4.50 - 5.10 mg/dL Blood 01/02/2025 1:31 PM CDT 01/02/2025 1:43 PM CDT Carolin Feng NP LAB BLOOD ORDERABLES F inal Result Performing Organization Address [facility] [place] [address] [address] Department [place] [address] * eGFR (01/02/2025 1:31 PM CDT) Pathologist [facility] [place] eGFR >90 >=60 mL/min/1. 73 m2 Comment: [...] NP LAB BLOOD ORDERABLES F inal Result [facility] [address] [address] Department [place] [address] * (ABNORMAL) CBC without differential (01/02/2025 1:31 PM CDT) WBC 12.0(H) 3.8 - 9.9 K/cumm Hgb 9.8(L) 11.9 - 15.5 g/dL [facility] Hct 30.2(L) 35.6 - 45.5 % [facility] Plt 174 150 - 400 K/cumm [facility] MPV 9.9 9.1 - 12.3 fL [...] ORDERABLES Final Res ult Performing Organization Address City/[facility]/ZIP Co de Phone Number [facility] [address] [address] Department of [employer] [place] [address] * Magnesium (01/02/2025 1:31 PM CDT) Pathologist [facility] [place] Magnesium 2.3 1.4 - 2.5 mg/dL Blood 01/02/2025 1:31 PM CDT 01/02/2025 1:43 PM CDT Carolin Feng [employer] LAB BLOOD ORDERABLES F inal Result Performing Organization Address [facility] Co de Phone Number [facility] [address] [address] Department of [employer] [place] [address] * (ABNORMAL) Renal function panel (01/02/2025 1:31 PM CDT) Pathologist [facility] [place] Sodium 140 135 - 145 mmol/L Potassium, pl 4.1 3.3 - 4.9 mmol/L [facility] Chloride 107 97 - 110 mmol/L [facility] CO2 20(L) 22 - 32 mmol/L [facility] Anion gap 13 2 - 15 mmol/L [facility] BUN 8 6 - 25 mg/dL [facility] Creatinine 0.72 0.60 - 1.10 mg/dL [facility] Glucose 106 70 - 199 mg/dL [facility] Comment: Interpretive Data Fasting glucose >/= [...] CDT 01/02/2025 1:43 PM CDT Carolin Feng [employer] LAB BLOOD ORDERABLES F inal Result Performing Organization Address City/[facility] Co de Phone Number [facility] ARECHIG[facility] [address] [address] [facility] [employer] [place] [address] * POCT glucose (01/02/2025 12:12 PM CDT) Glucose, POC 105 70 - 199 mg/dL POC Performer [id number] [facility] Blood 01/02/2025 12:1 2 PM CDT 01/02/2025 12:12 PM CDT Didier Quispe MD LAB POCT ORDERABLES - DEVICE F inal Result Performing Organization Address [facility] Co de Phone Number [facility] [address] [address] [facility] [employer] [place] [address] * POCT glucose (01/02/2025 10:25 AM CDT) Glucose, POC 89 70 - 199 mg/dL POC Performer [id number] [facility] Blood 01/02/2025 10:2 5 AM CDT 01/02/2025 10:25 AM CDT Didier Quispe MD LAB POCT ORDERABLES - DEVICE F inal Result Performing Organization Address [facility] Co de Phone Number [facility] [address] [address] [facility] [employer] [place] [address] * POCT glucose (01/02/2025 8:27 AM CDT) Glucose, POC 114 70 - 199 mg/dL POC Performer [id number] [facility] Blood 01/02/2025 8:27 AM CDT 01/02/2025 8:27 AM CDT Didier Quispe MD LAB POCT ORDERABLES - DEVICE F inal Result Performing Organization Address [facility] Co de Phone Number [facility] [address] Department [place] [address] * ECG 12 lead (01/02/2025 7:22 AM CDT) 01/02/2025 7:22 AM CDT Narrative [facility] - 01/02/2025 8:00 AM CDT Vent Rate: 78 bpm RR Interval: 762 msec SC Interval: 154 msec QRS Duration: 92 msec QT Interval: 381 msec QTC Interval: 415 msec P-R-T Tilton: 41 - 74 - 84 degrees IMPRESSION: SINUS RHYTHM PROBABLE INFERIOR MYOCARDIAL INFARCTION , OF INDETERMINATE AGE [35 ms Q WAVE IN II/aVF] ABNORMAL ECG Electronically Signed By: Dr. Caprice Kendrick [facility] Didier Quispe MD ECG ORDERABLES Final Result Performing Organization Address [facility] Phone Number [facility] * Critical Care (01/02/2025 6:53 [...] plan with the ICU team and other medical/guidance consultant staff, making frequent assessments and decisions [...] 134 70 - 199 mg/dL POC Performer [id number] [facility] ARECHIGA Blood 01/02/2025 6:08 AM CDT 01/02/2025 6:08 AM CDT Didier Quispe MD LAB POCT ORDERABLES - DEVICE F inal Result [facility] [address] Department [place] [address] * XR Chest 1 View - Portable [...] tubes. Thoracostomy tubes and mediastinal drain and Larose-Lindsay catheter stable. Cardiomegaly with postsurgical changes stable. Decreasing but continued mild pulmonary vascular congestion. No pneumothorax Procedure Note Gama Harrison MD - 01/02/2025 EXAMINATION: XR CHEST 1 VIEW DATE: 01/02/2025 5:25 AM HISTORY: Cardiac surgery FINDINGS:Compared with study of the prior day, patient extubated with removal of ET and NG tubes. Thoracostomy tubes and mediastinal drain and Larose-Lindsay catheter stable. Cardiomegaly with postsurgical changes stable. Decreasing but continued mild pulmonary vascular congestion. No pneumothorax IMPRESSION: Extubation. Decreasing failure. Electronically signed by: Gama Harrison M.D. Nhi Pruett MD IMG XR PROCEDURES Final Resul t * POCT glucose (01/02/2025 5:06 AM CDT) Glucose, POC 133 70 - 199 mg/dL POC Performer [id number] [facility] Blood 01/02/2025 5:06 AM CDT 01/02/2025 5:06 AM CDT Didier Quispe MD LAB POCT ORDERABLES - DEVICE F inal Result Performing Organization Address [facility] Co de Phone Number [facility] [address] [place] [address] * POCT glucose (01/02/2025 4:05 AM CDT) Glucose, POC 131 70 - 199 mg/dL POC Performer [id number] [facility] Blood 01/02/2025 4:05 AM CDT 01/02/2025 4:05 AM CDT Didier Quispe MD LAB POCT ORDERABLES - DEVICE F inal Result Performing Organization Address [facility] Co de Phone Number [facility] [address] [address] Department of [employer] [place] [address] * Oxyhemoglobin, pulmonary artery (01/02/2025 3:13 AM CDT) Oxyhemoglobin, PA 66.2 % Comment: Interpretive Data No reference range established. Current interpretive data was last revised 2019. Blood 01/02/2025 3:13 AM CDT 01/02/2025 3:15 AM CDT us Yan Perry MD LAB BLOOD ORDERABL ES Final Result [facility] [address] [address] Department of [employer] [place], [place] [id number] * Lactate (01/02/2025 3:13 AM CDT) Lactate 1.9 0.7 - 2.0 mmol/L Blood 01/02/2025 3:13 AM CDT 01/02/2025 3:16 AM CDT us Yan Perry MD LAB BLOOD ORDERABL ES Final Result Performing Organization Address City/[facility]/ZIP Co de Phone Number [facility] ARECHIG[facility] [address] [address] [place] [address] * eGFR (01/02/2025 3:13 AM CDT) eGFR [...] MD LAB BLOOD ORDERABLES Final Re sult [facility] [address] Department [place] [address] * (ABNORMAL) Differential, auto (01/02/2025 3:13 AM CDT) Neutrophil abs 9.3(H) 1.5 - 6.5 K/cumm Imm gran abs 0.1 0.0 - 0.1 K/cumm [facility] Lymphocyte abs 1.0 0.8 - 3.3 K/cumm [facility] Monocyte abs 1.1(H) 0.2 - 0.8 K/cumm [facility] Eosinophil abs 0.0 0.0 - 0.5 K/cumm [facility] Basophil abs 0.0 0.0 - 0.1 K/cumm [facility] Neutrophil pct 81.3 % [facility] Comment: Interpretive Data Percent cell count reference ranges are not reported, since discordance with absolute values may lead to misinterpretation of CBC data. Current Interpretive Data was last revised on 2018. Imm gran pct 0.5 % [facility] Comment: Interpretive Data Percent cell count reference ranges are not reported, since discordance with absolute values may lead to misinterpretation of CBC data. Current Interpretive Data was last revised on 2018. Lymphocyte pct 8.7 % [facility] Comment: Interpretive Data Percent cell count reference ranges are not reported, since discordance with absolute values may lead to misinterpretation of CBC data. Current Interpretive Data was last revised on 2018. Monocyte pct 9.2 % [facility] Comment: Interpretive Data Percent cell count reference ranges are not reported, since discordance with absolute values may lead to misinterpretation of CBC data. Current Interpretive Data was last revised on 2018. Eosinophil pct 0.1 % [facility] Comment: Interpretive Data Percent cell count reference ranges are not reported, since discordance with absolute values may lead to misinterpretation of CBC data. Current Interpretive Data was last revised on 2018. Basophil pct 0.2 % [facility] Comment: Interpretive Data Percent cell count reference ranges are not reported, since discordance with absolute values may lead to misinterpretation of CBC data. Current Interpretive Data was last revised on 2018. Blood 01/02/2025 3:13 AM CDT 01/02/2025 3:17 AM CDT Nhi Pruett MD LAB BLOOD ORDERABLES Final Re sult [facility] [address] [address] Department [place] [address] * (ABNORMAL) CBC with auto differential (01/02/2025 3:13 AM CDT) WBC 11.4(H) 3.8 - 9.9 K/cumm Hgb 9.9(L) 11.9 - 15.5 g/dL [facility] Hct 29.2(L) 35.6 - 45.5 % [facility] Plt 191 150 - 400 K/cumm [facility] MPV 10.1 9.1 - 12.3 fL [facility] RBC 3.29(L) 3.90 - 5.20 M/cumm [facility] MCV 88.8 81.3 - 96.4 fL [facility] MCH 30.1 27.1 - 33.3 pg [facility] MCHC 33.9 32.3 - 35.7 g/dL [facility] RDW CV 13.2 11.1 - 14.9 % [facility] RDW SD 43.0 35.7 - 48.1 fL [facility] NRBC abs 0.00 0.00 - 0.01 K/cumm [facility] Blood 01/02/2025 3:13 AM CDT 01/02/2025 3:17 AM CDT Nhi Pruett MD LAB BLOOD ORDERABLES Final Re sult [facility] [address] [address] [facility] [employer] [place], [place] [id number] * Magnesium (01/02/2025 3:13 AM CDT) Magnesium 2.5 1.4 - 2.5 mg/dL Blood 01/02/2025 3:13 AM CDT 01/02/2025 3:17 AM CDT Nhi Pruett MD LAB BLOOD ORDERABLES Final Re sult Performing Organization Address [facility] de Phone Number [facility] ARECHIGA [address] [place] [address] * (ABNORMAL) Blood gas, arterial (01/02/2025 3:13 [...] ORDERABLES Final Res ult Performing Organization Address [facility]/ZIP Co de Phone Number [facility] ARECHIG[facility] [address] [address] [facility] [employer] [place], [place] [id number] * (ABNORMAL) Basic metabolic panel (01/02/2025 3:13 AM CDT) Sodium 141 135 - 145 mmol/L Potassium, pl 4.4 3.3 - 4.9 mmol/L [facility] Chloride 108 97 - 110 mmol/L [facility] CO2 23 22 - 32 mmol/L [facility] Anion gap 10 2 - 15 mmol/L [facility] BUN 9 6 - 25 mg/dL [facility] Creatinine 0.70 0.60 - 1.10 mg/dL [facility] Glucose 125 70 - 199 mg/dL [facility] Comment: Interpretive Data Fasting glucose >/= [...] 2022. Calcium 8.1(L) 8.5 - 10.3 mg/dL [facility] Blood 01/02/2025 3:13 AM CDT 01/02/2025 3:17 AM CDT Nhi Pruett MD LAB BLOOD ORDERABLES Final Re sult Performing Organization Address [facility] Co de Phone Number [facility] [address] [place] [address] * POCT glucose (01/02/2025 3:08 AM CDT) Glucose, POC 125 70 - 199 mg/dL POC Performer [id number] [facility] Blood 01/02/2025 3:08 AM CDT 01/02/2025 3:08 AM CDT Didier Quispe MD LAB POCT ORDERABLES - DEVICE F inal Result Performing Organization Address [facility] Co de Phone Number [facility] [address] [address] Department of [employer] [place] [address] * POCT glucose (01/02/2025 2:03 AM CDT) Glucose, POC 129 70 - 199 mg/dL POC Performer [id number] [facility] Blood 01/02/2025 2:03 AM CDT 01/02/2025 2:03 AM CDT Didier Quispe MD LAB POCT ORDERABLES - DEVICE F inal Result Performing Organization Address [facility] Co de Phone Number [facility] [address] [address] [facility] [employer] [place] [address] * POCT glucose (01/02/2025 1:06 AM CDT) Glucose, POC 135 70 - 199 mg/dL POC Performer [id number] [facility] Blood 01/02/2025 1:06 AM CDT 01/02/2025 1:06 AM CDT Didier Quispe MD LAB POCT ORDERABLES - DEVICE F inal Result Performing Organization Address [facility] Co de Phone Number [facility] ARECHIG[facility] [address] [address] [facility] [employer] [place] [address] * POCT glucose (01/01/2025 11:57 PM CDT) Glucose, POC 147 70 - 199 mg/dL POC Performer [id number] [facility] Blood 01/01/2025 11:5 7 PM CDT 01/01/2025 11:57 PM CDT Didier Quispe MD LAB POCT ORDERABLES - DEVICE F inal Result Performing Organization Address [facility] de Phone Number [facility] ARECHIGA [address] [address] [facility] [employer] [place] [address] * POCT glucose (01/01/2025 10:57 PM CDT) Glucose, POC 163 70 - 199 mg/dL POC Performer [id number] [facility] Blood 01/01/2025 10:5 7 PM CDT 01/01/2025 10:57 PM CDT Didier Quispe MD LAB POCT ORDERABLES - DEVICE F inal Result Performing Organization Address [facility] Co de Phone Number [facility] ARECHIGA [address] [address] [facility] [employer] [place] [address] * POCT glucose (01/01/2025 9:29 PM CDT) Glucose, POC 171 70 - 199 mg/dL POC Performer [id number] [facility] Blood 01/01/2025 9:29 PM CDT 01/01/2025 9:29 PM CDT Didier Quispe MD LAB POCT ORDERABLES - DEVICE F inal Result Performing Organization Address [facility] de Phone Number [facility] ARECHIG[facility] [address] [address] [employer] [place] [address] * Potassium, whole blood (01/01/2025 7:48 PM [...] ORDERABLES Fi nal Result Performing Organization Address [facility] Co de Phone Number [facility] [address] [address] [facility] [employer] [place] [address] * Calcium, ionized, whole blood (01/01/2025 7:48 PM CDT) Ca, ionized, bld 4.54 4.50 - 5.10 mg/dL Blood 01/01/2025 7:48 PM CDT 01/01/2025 7:50 PM CDT us Yan Perry MD LAB BLOOD ORDERABL ES Final Result Performing Organization Address [facility] Co de Phone Number [facility] ARECHIG[facility] [address] [address] [place] [address] * eGFR (01/01/2025 7:48 PM [...] ORDERABL ES Final Result Performing Organization Address City/[facility]/ZIP Co de Phone Number [facility] ARECHIGA [address] [address] [place] [address] * (ABNORMAL) CBC without differential (01/01/2025 7:48 PM CDT) WBC 15.2(H) 3.8 - 9.9 K/cumm Hgb 10.7(L) 11.9 - 15.5 g/dL [facility] Hct 32.4(L) 35.6 - 45.5 % [facility] Plt 210 150 - 400 K/cumm [facility] MPV 10.0 9.1 - 12.3 fL [facility] RBC 3.57(L) 3.90 - 5.20 M/cumm [facility] MCV 90.8 81.3 - 96.4 fL [facility] MCH 30.0 27.1 - 33.3 pg CERNER [...] ORDERABL ES Final Result Performing Organization Address [facility]/ZIP Co de Phone Number [facility] [address] [place] [address] * Magnesium (01/01/2025 7:48 PM CDT) [facility] Magnesium 2.4 1.4 - 2.5 mg/dL Blood 01/01/2025 7:48 PM CDT 01/01/2025 7:51 PM CDT Yan Perry MD LAB BLOOD ORDERABL ES Final Result Performing Organization Address [facility]/ZIP Co de Phone Number [facility] [address] [address] [employer] [place], [place] [id number] * (ABNORMAL) Blood gas, arterial (01/01/2025 7:48 PM CDT) pH, Art 7.33(L) 7.35 - 7.45 PCO2, Arterial 46(H) 35 - 45 mmHg [facility] PO2, Arterial 197(H) 83 - 108 [...] MD LAB BLOOD ORDERABLES Final Re sult [facility] [address] [address] Department [place] [address] * (ABNORMAL) Basic metabolic panel (01/01/2025 7:48 [...] ORDERABL ES Final Result Performing Organization Address City/[facility]/ZIP Co de Phone Number [facility] ARECHIGA [address] [address] Department of [employer] [place] [address] * POCT glucose (01/01/2025 7:46 PM CDT) Glucose, POC 156 70 - 199 mg/dL POC Performer [id number] [facility] Blood 01/01/2025 7:46 PM CDT 01/01/2025 7:46 PM CDT Didier Quispe MD LAB POCT ORDERABLES - DEVICE F inal Result Performing Organization Address City/[facility] Co de Phone Number [facility] ARE[facility] [address] [address] Department [place] [address] * Critical Care (01/01/2025 7:43 PM CDT) [...] plan with the ICU team and other medical/guidance consultant staff, making frequent assessments and decisions [...] documenting in the medical record Aly Suero SALES AG[employer]AMPS IN CLINIC/BEDSIDE ORDER DMITRI Final Result * POCT glucose (01/01/2025 6:15 PM CDT) Glucose, POC 110 70 - 199 mg/dL POC Performer [id number] [facility] Blood 01/01/2025 6:15 PM CDT 01/01/2025 6:15 PM CDT Didier Quispe MD LAB POCT ORDERABLES - DEVICE F inal Result Performing Organization Address [facility]/ZIP Co de Phone Number [facility] [address] [address] [facility] [employer] [place], [place] [address] * POCT glucose (01/01/2025 5:16 PM CDT) Glucose, POC 108 70 - 199 mg/dL POC Performer [id number] [facility] Blood 01/01/2025 5:16 PM CDT 01/01/2025 5:16 PM CDT Didier Quispe MD LAB POCT ORDERABLES - DEVICE F inal Result Performing Organization Address [facility] Co de Phone Number [facility] [address] [address] Department [employer] [place] [address] * POCT glucose (01/01/2025 4:05 PM CDT) Glucose, POC 95 70 - 199 mg/dL POC Performer [id number] [facility] Blood 01/01/2025 4:05 PM CDT 01/01/2025 4:05 PM CDT Didier Quispe MD LAB POCT ORDERABLES - DEVICE F inal Result Performing Organization Address [facility]/ZIP Co de Phone Number [facility] [address] [address] Department [employer] [place] [address] * XR Chest 1 View - Portable [...] in good position. The tip of the Larose-Lindsay catheter is in the proximal right main [...] in good position. The tip of the Larose-Lindsay catheter is in the proximal right main [...] BLOOD ORDERABLES Final Res ult [facility]CH[facility] [address] [address] Department [employer] [place] [address] * Calcium, ionized, whole blood (01/01/2025 3:41 PM CDT) [facility] Ca, ionized, bld 4.65 4.50 - 5.10 mg/dL Blood 01/01/2025 3:41 PM CDT 01/01/2025 3:48 PM CDT Didier Quispe MD LAB BLOOD ORDERABLES Final Res ult Performing Organization Address [facility] Co de Phone Number [facility] ARECHIGA [address] [address] [facility] [employer] [place] [address] * Phosphorus (01/01/2025 3:41 PM CDT) [facility] Phosphorus, pl 3.4 2.3 - 4.5 mg/dL Blood 01/01/2025 3:41 PM CDT 01/01/2025 3:48 PM CDT Didier Quispe MD LAB BLOOD ORDERABLES Final Res ult Performing Organization Address [facility] Co de Phone Number [facility] ARECHIG[facility] [address] [address] [employer] [place] [address] * Magnesium (01/01/2025 3:41 PM CDT) [facility] Magnesium 2.4 1.4 - 2.5 mg/dL Blood 01/01/2025 3:41 PM CDT 01/01/2025 3:48 PM CDT Didier Quispe MD LAB BLOOD ORDERABLES Final Res ult Performing Organization Address [facility] Co de Phone Number [facility] ARECHIG[facility] [address] [address] [facility] [employer] [place] [address] * eGFR (01/01/2025 3:40 PM CDT) [facility] eGFR >90 >=60 mL/min/1. 73 m2 Comment: [...] ORDERABLES Final Re sult Performing Organization Address City/[facility]/ZIP Co de Phone Number NOEMI HAWK [address] [address] [place] [address] * aPTT (01/01/2025 3:40 PM [...] ORDERABLES Final Re sult Performing Organization Address City/[facility]/ZIP Co de Phone Number NOEMI HAWK [address] [address] [facility] [place] [address] * (ABNORMAL) Protime-INR (01/01/2025 3:40 PM CDT) PT 13.4(H) 9.7 - 13.0 sec INR 1.24(H) 0.90 - 1.20 [facility] Comment: Interpretive data Oral anticoagulant therapeutic ranges: Venous thromboembolism prophylaxis or treatment: 2.0-3.0 CARDIOLOGY Standard range: 2.0-3.0 High-intensity range: 2.5-3.5 Refer to indication-specific guidelines for appropriate target ranges for prosthetic heart valve replacement. Current interpretive data was last revised on 2019. Blood 01/01/2025 3:40 PM CDT 01/01/2025 3:50 PM CDT us Nhi Pruett MD LAB BLOOD ORDERABLES Final Re sult [facility] [address] [address] Department [place] [address] * (ABNORMAL) CBC without differential (01/01/2025 3:40 PM CDT) WBC 16.8(H) 3.8 - 9.9 K/cumm Hgb 11.1(L) 11.9 - 15.5 g/dL [facility] Hct 32.9(L) 35.6 - 45.5 % [facility] Plt 220 150 - 400 K/cumm [facility] MPV 9.8 9.1 - 12.3 fL [facility] RBC 3.71(L) 3.90 - 5.20 M/cumm [facility] MCV 88.7 81.3 - 96.4 fL [facility] MCH 29.9 27.1 - 33.3 pg [facility] MCHC 33.7 32.3 - 35.7 g/dL [facility] RDW CV 13.2 11.1 - 14.9 % [facility] RDW SD 42.7 35.7 - 48.1 fL [facility] NRBC abs 0.00 0.00 - 0.01 K/cumm [facility] Blood 01/01/2025 3:40 PM CDT 01/01/2025 3:50 PM CDT Nhi Pruett MD LAB BLOOD ORDERABLES Final Re sult Performing Organization Address [facility] Co de Phone Number [facility] [address] [address] Department [place] [address] * (ABNORMAL) Blood gas, arterial (01/01/2025 3:40 [...] ORDERABLES Final Re sult Performing Organization Address [facility] [facility] Co de Phone Number NOEMI ARECHIGA [address] Department [place] [address] * (ABNORMAL) Basic metabolic panel (01/01/2025 3:40 [...] ORDERABLES Final Re sult Performing Organization Address [facility]/ZIP Co de Phone Number NOEMI [address] [address] Department of [employer] [place] [address] * POCT glucose (01/01/2025 3:06 PM CDT) Glucose, POC 122 70 - 199 mg/dL POC Performer [id number] [facility] Blood 01/01/2025 3:06 PM CDT 01/01/2025 3:06 PM CDT Didier Quispe MD LAB POCT ORDERABLES - DEVICE F inal Result Performing Organization Address [facility] Co de Phone Number [facility] [address] [address] Department of [employer] [place] [address] * Critical Care (01/01/2025 3:05 PM CDT) [...] plan with the ICU team and other medical/guidance consultant staff, making frequent assessments and decisions [...] - [place] [address] [address] Department [place] [address] * (ABNORMAL) POC Blood Gas [...] ORDERABLES - [place] [address] [address] Department [place] [address] * (ABNORMAL) POC Blood Gas and Chemistries, [...] ORDERABLES - DEVICE Final Result NOEMI ARECHIGA [address] Department of [employer] [place] [address] * POC Activated Clotting Time, High Range (01/01/2025 1:43 PM CDT) ACT 93 87 - 138 sec POC Performer [id number] [facility] Blood 01/01/2025 1:43 PM CDT 01/01/2025 1:43 PM CDT Nhi Pruett MD LAB BLOOD ORDERABLES Final Re sult Performing Organization Address [facility] Co de Phone Number NOEMI Diaz33 [address] Department of [employer] [place] [address] * (ABNORMAL) POC Blood Gas and Chemistries, [...] - DEVICE Final Result Performing Organization Address [facility] Co de Phone Number NOEMI ARECHIGA [address] [address] Department of [employer] [place] [address] * (ABNORMAL) POC Activated Clotting Time, High Range (01/01/2025 12:58 PM CDT) ACT 603(H) 87 - 138 sec POC Performer [id number] [facility] Blood 01/01/2025 12:5 8 PM CDT 01/01/2025 12:58 PM CDT Result [facility] Nhi Pruett MD LAB BLOOD ORDERABLES Final Re sult Performing Organization Address [facility] de Phone Number NOEMI HWAK [address] [address] Department of [employer] [place], [place] [address] * Platelet count (01/01/2025 12:50 PM CDT) Plt 241 150 - 400 K/cumm Blood 01/01/2025 12:5 0 PM CDT 01/01/2025 12:57 PM CDT Narrative [facility] - 01/01/2025 1:03 PM CDT Please call results to ext. [phone]. Thanks. Didier Quispe MD LAB BLOOD ORDERABLES Final Res ult Performing Organization Address [facility] Co de Phone Number TARALAURA ARECHIGA [address] [address] Department of [employer] [place], [place] [id number] * (ABNORMAL) POC Blood Gas and Chemistries, [...] POCT ORDERABLES - DEVICE Final Result NOEMI [address] [address] Department [place] [address] * (ABNORMAL) POC Activated Clotting Time, High Range (01/01/2025 12:32 PM CDT) ACT 514(H) 87 - 138 sec POC Performer [id number] [facility] Blood 01/01/2025 12:3 2 PM CDT 01/01/2025 12:32 PM CDT Nhi Pruett MD LAB BLOOD ORDERABLES Final Re sult [facility] [address] [address] Department [place] [address] * (ABNORMAL) POC Blood Gas and Chemistries, [...] ORDERABLES - DEVICE Final Result NOEMI ARECHIGA [address] [address] Department [place] [address] * (ABNORMAL) POC Activated Clotting Time, High Range (01/01/2025 12:04 PM CDT) ACT 570(H) 87 - 138 sec POC Performer [id number] [facility] Blood 01/01/2025 12:0 4 PM CDT 01/01/2025 12:04 PM CDT us Nhi Pruett MD LAB BLOOD ORDERABLES Final Re sult Performing Organization Address City/[facility]/ZIP Co de Phone Number NOEMI ARECHIGA [address] [address] Department [place] [address] * (ABNORMAL) POC Blood Gas and Chemistries, [...] - DEVICE Final Result Performing Organization Address [facility] Co de Phone Number NOEMI ARECHIGA [address] [address] Department [employer] [place] [address] * (ABNORMAL) POC Activated Clotting Time, High Range (01/01/2025 11:46 AM CDT) ACT 698(H) 87 - 138 sec POC Performer [id number] [facility] Blood 01/01/2025 11:4 6 AM CDT 01/01/2025 11:46 AM CDT Nhi Pruett MD LAB BLOOD ORDERABLES Final Re sult Performing Organization Address [facility] Co de Phone Number NOEMI ARECHIGA [address] [address] Department of [employer] [place] [address] * (ABNORMAL) POC Activated Clotting Time, High Range (01/01/2025 10:50 AM CDT) ACT 564(H) 87 - 138 sec POC Performer [id number] [facility] Blood 01/01/2025 10:5 0 AM CDT 01/01/2025 10:50 AM CDT Nhi Pruett MD LAB BLOOD ORDERABLES Final Re sult Performing Organization Address [facility] Co de Phone Number NOEMI ARECHIGA [address] [address] Department [employer] [place] [address] * BW AN SHEATH INTRODUCER PERFORMABLE, PULMONARY [...] MD ANESTHESIA ORDERABLES Final Resu lt * SC AN ELECTIVE ENDOTRACHEAL AIRWAY (01/01/2025 10:02 AM [...] - DEVICE Final Result Performing Organization Address [facility] Co de Phone Number NOEMI ARECHIGA [address] [address] Department of [employer] [place] [address] * POC Activated Clotting Time, High Range (01/01/2025 9:41 AM CDT) ACT 90 87 - 138 sec POC Performer [id number] [facility] Blood 01/01/2025 9:41 AM CDT 01/01/2025 9:41 AM CDT Nhi Pruett MD LAB BLOOD ORDERABLES Final Re sult Performing Organization Address [facility] Co de Phone Number NOEMI ARECHIGA [address] [address] Department of [employer] [place] [address] * DEISI (01/01/2025 9:40 AM CDT) Anatomical [...] inferior: normal 16- Apical septal: normal 17- [place]: normal Valves: Aortic Valve: Annulus: normal Leaflet [...] DO LAB BLOOD ORDERABLES Pricila l Result [facility] [address] [address] Department of [employer] [place] [address] * CBC without differential (01/01/2025 [...] NRBC abs 0.00 0.00 - 0.01 K/cumm [facility] Blood 01/01/2025 3:53 AM CDT 01/01/2025 4:13 AM CDT Gus Higgins DO LAB BLOOD ORDERABLES Pricila l Result Performing Organization Address City/[facility] Co de Phone Number NOEMI ARECHIGA [address] [address] Department of Laboratories [place], [place] [id number] * Basic metabolic panel (01/01/2025 3:53 AM [...] 2022. Calcium 8.9 8.5 - 10.3 mg/dL [facility] Blood 01/01/2025 3:53 AM CDT 01/01/2025 4:13 AM CDT Gus Higgins DO LAB BLOOD ORDERABLES Pricila l Result Performing Organization Address [facility] Co de Phone Number [facility] [address] [address] [place] [address] * Check Sample (12/31/2024 10:02 AM CDT) ABO Rh A Positive [facility] OTHER 12/31/2024 10:0 2 AM CDT 12/31/2024 10:15 AM CDT Nhi Pruett MD LAB BLOOD ORDERABLES Final Re sult Performing Organization Address [facility] Co de Phone Number [facility] [address] [address] Department of [employer] [place] [address] CH * Type and screen (12/31/2024 9:16 AM CDT) Luis E, indirect Negative ABO Rh A Positive [facility] Blood 12/31/2024 9:16 AM CDT 12/31/2024 9:47 AM CDT Narrative [facility] - 12/31/2024 10:35 AM CDT Has the patient had Daratumumab or Isatuximab in the past 6 months?->Unknown Herrera Lin NP LAB BLOOD BANK TEST ORDERA BLES Final Result Performing Organization Address [facility] de Phone Number NOEMI ARECHIGA [address] Department of [employer] [place] [address] * Prepare RBC: 4 Units (12/31/2024 8:44 AM CDT) [facility] Product code [id number] [facility] Unit Number [id number] 5-P [facility] Product Blood Type APOS [facility] Dispense Status RETURNED [facility] Product code [id number] [facility] Unit Number [id number] 0-T [facility] Product Blood Type APOS [facility] Dispense Status RETURNED [facility] Product code [id number] Unit Number [id number] 8-H [facility] Product Blood Type APOS [facility] Dispense Status RETURNED [facility] Product code [id number] [facility] Unit Number [id number] 2-E [facility] Product Blood Type APOS [facility] Dispense Status RETURNED [facility] Blood 12/31/2024 8:44 AM CDT Narrative [facility] - 01/04/2025 12:21 AM CDT Specify Procedure:->CABG Are special requirements needed? (All products are leukoreduced and CMV- safe)- >No Date required:-[id number] LRRBC # of [id number] Reasons:-Hold for procedure (specify procedure)} Herrera Lin SALES [employer] BLOOD BANK PRODUCT ORDERAB LES Final Result Performing Organization Address [facility] Co de Phone Number NOEMI ARECHIGA [address] Department of [employer] [place] [address] * eGFR (12/31/2024 5:56 AM CDT) [facility] eGFR >90 >=60 mL/min/1. 73 m2 Comment: [...] DO LAB BLOOD ORDERABLES Pricila l Result [facility] [address] [address] Department [place] [address] * CBC without differential (12/31/2024 5:56 AM CDT) WBC 7.9 3.8 - 9.9 K/cumm Hgb 13.9 11.9 - 15.5 g/dL [facility] Hct 41.8 35.6 - 45.5 % [facility] Plt 258 150 - 400 K/cumm [facility] MPV 10.0 9.1 - 12.3 fL [facility] RBC 4.70 3.90 - 5.20 M/cumm [facility] MCV 88.9 81.3 - 96.4 fL [facility] MCH 29.6 27.1 - 33.3 pg C[facility]ER MCHC 33.3 32.3 - 35.7 g/dL [facility] RDW CV 13.1 11.1 - 14.9 % [facility] RDW SD 42.7 35.7 - 48.1 fL [facility] NRBC abs 0.00 0.00 - 0.01 K/cumm [facility] Blood 12/31/2024 5:56 AM CDT 12/31/2024 6:29 AM CDT Gus Jalil Wolfton LAB BLOOD ORDERABLES Pricila l Result NOEMI ARECHIGA [address] [address] Department [place] [address] * Basic metabolic panel (12/31/2024 5:56 AM CDT) Sodium 138 135 - 145 mmol/L Potassium, pl 4.2 3.3 - 4.9 mmol/L [facility] Chloride 105 97 - 110 mmol/L [facility] CO2 23 22 - 32 mmol/L [facility] Anion gap 10 2 - 15 mmol/L [facility] BUN 11 6 - 25 mg/dL [facility] Creatinine 0.78 0.60 - 1.10 mg/dL [facility] Glucose 98 70 - 199 mg/dL [facility] Comment: Interpretive Data Fasting glucose >/= [...] 2022. Calcium 9.0 8.5 - 10.3 mg/dL [facility] Blood 12/31/2024 5:56 AM CDT 12/31/2024 6:28 AM CDT Gus Higgins DO LAB BLOOD ORDERABLES Pricila l Result NOEMI ARECHIGA [address] [address] Department [place] [address] * (ABNORMAL) Urinalysis reflex to microscopic and [...] tendency for uric acid stone formation. Source: [facility] Current Interpretive Data was last revised on [...] LAB MICROBIOLOGY - GENERAL ORDERABLES Final Result NOMEI ARECHIGA [address] [address] Department [place] [address] * hCG, urine, qualitative (12/30/2024 6:44 PM CDT) HCG, ur Negative Negative Urine 12/30/2024 6:44 PM CDT 12/30/2024 6:50 PM CDT Herrera Lin NP LAB URINE ORDERABLES Final Result NOEMI ARECHIGA [address] [address] Department [place] [address] * (ABNORMAL) Urinalysis, microscopic only (12/30/2024 6:44 PM CDT) Pathologist [facility] WBC, ur 0-5 0 - 5 /HPF RBC, ur 0-2 0 - 2 /HPF [facility] Epithelial cells, squamous, ur 1-5 0 - 5 /HPF [facility] Bacteria, ur Trace(A) [facility] Mucous, ur Present(A) [facility] Culture Reflex Comment Reflex conditions for urine culture (WBC >10) not met. [facility] Urine, clean voided 12/30/2024 6:44 PM CDT 12/30/2024 6:49 PM CDT Herrera Lin SAL[employer] LAB URINE ORDERABLES Final Result Performing Organization Address [facility]/ZIP Co de Phone Number NOEMI ARECHIGA [address] [address] [place] [address] * eGFR (12/30/2024 3:25 AM [...] ORDERABLES Pricila l Result Performing Organization Address City/[facility]/ZIP Co de Phone Number NOEMI ARECHIGA [address] [address] Department [place] [address] * CBC without differential (12/30/2024 3:25 AM CDT) [facility] WBC 7.9 3.8 - 9.9 K/cumm Hgb 13.1 11.9 - 15.5 g/dL [facility] Hct 39.9 35.6 - 45.5 % [facility] Plt 240 150 - 400 K/cumm [facility] MPV 10.1 9.1 - 12.3 fL [facility] RBC 4.42 3.90 - 5.20 M/cumm [facility] MCV 90.3 81.3 - 96.4 fL [facility] MCH 29.6 27.1 - 33.3 pg [facility] MCHC 32.8 32.3 - 35.7 g/dL [facility] RDW CV 12.9 11.1 - 14.9 % [facility] RDW SD 42.6 35.7 - 48.1 fL [facility] NRBC abs 0.00 0.00 - 0.01 K/cumm [facility] Blood 12/30/2024 3:25 AM CDT 12/30/2024 4:13 AM CDT Gus Higgins DO LAB BLOOD ORDERABLES Pricila l Result [facility] [address] [address] [facility] [place] [address] * Hemoglobin A1c (12/30/2024 3:25 AM CDT) [facility] Hgb A1C 5.5 4.0 - 5.6 % Estimated Average Glucose 111 mg/dL [facility] Comment: The ADA recommends reporting an estimated Average Glucose (eAG) with all Hemoglobin A1c results using the equation derived from a study of 507 normal and diabetic adults. Minority populations were underrepresented and children were not included. (Diabetes Care 31:8241-5650, 2008). The eAG is not equivalent to a fasting glucose. Blood 12/30/2024 3:25 AM CDT 12/30/2024 4:13 AM CDT us Herrera Lin SALES [employer] LAB BLOOD ORDERABLES Final Result NOEMI ARECHIGA [address] [address] Department [place] [address] * Basic metabolic panel (12/30/2024 3:25 AM CDT) Sodium 140 135 - 145 mmol/L Potassium, pl 3.7 3.3 - 4.9 mmol/L [facility] Chloride 106 97 - 110 mmol/L [facility] CO2 22 22 - 32 mmol/L [facility] Anion gap 12 2 - 15 mmol/L [facility] BUN 11 6 - 25 mg/dL [facility] Creatinine 0.76 0.60 - 1.10 mg/dL [facility] Glucose 98 70 - 199 mg/dL [facility] Comment: Interpretive Data Fasting glucose >/= [...] 2022. Calcium 8.9 8.5 - 10.3 mg/dL [facility] Blood 12/30/2024 3:25 AM CDT 12/30/2024 4:13 AM CDT us Gus Higgins DO LAB BLOOD ORDERABLES Priclia l Result ONEMI ARECHIGA [address] [address] Department [place] [address] * TRANSTHORACIC ECHO (TTE) COMPLETE W DOPPLER/CF WO CONTRAST (12/29/2024 12:45 PM CDT) Anatomical Region Laterality Modality Ultrasound 12/29/2024 11:1 5 AM CDT Narrative 12/29/2024 2:45 [place] [address] Echocardiogram Report Patient Name: PREM RAO L : 1980 Study Date: 12/29/2024 11:15:21 AM Gender: F Tech: Location: [address] Provider: HERRERA LIN Height(Cm): 175 BSA: [...] Procedure Note Brittani Lomeli MD - 12/29/2024 [place] [address] Echocardiogram Report Patient Name: PREM RAO L : 1980 Study Date: 12/29/2024 11:15:21 AM Gender: F Tech: Location: [address] Provider: HERRERA LIN Height(Cm): 175 BSA: [...] LAB BLOOD ORDERABLES Pricila mayen Result NOEMI [address] [address] Department [place] [address] * CBC without differential (12/29/2024 4:11 AM CDT) Pathologist [facility] [place] WBC 7.6 3.8 - 9.9 K/cumm Hgb 12.9 11.9 - 15.5 g/dL [facility] Hct 39.1 35.6 - 45.5 % [facility] Plt 227 150 - 400 K/cumm [facility] MPV 10.0 9.1 - 12.3 fL [facility] RBC 4.32 3.90 - 5.20 M/cumm [facility] MCV 90.5 81.3 - 96.4 fL [facility] MCH 29.9 27.1 - 33.3 pg [facility] MCHC 33.0 32.3 - 35.7 g/dL [facility] RDW CV 13.0 11.1 - 14.9 % [facility] RDW SD 42.8 35.7 - 48.1 fL [facility] NRBC abs 0.00 0.00 - 0.01 K/cumm [facility] Blood 12/29/2024 4:11 AM CDT 12/29/2024 5:15 AM CDT Gus Higgins DO LAB BLOOD ORDERABLES Pricila l Result [facility] [address] [address] Department of Laboratories [place], [place] [id number] * (ABNORMAL) Basic metabolic panel (12/29/2024 4:11 AM CDT) Sodium 141 135 - 145 mmol/L Potassium, pl 4.0 3.3 - 4.9 mmol/L [facility] Chloride 108 97 - 110 mmol/L [facility] CO2 21(L) 22 - 32 mmol/L [facility] Anion gap 12 2 - 15 mmol/L [facility] BUN 9 6 - 25 mg/dL [facility] Creatinine 0.77 0.60 - 1.10 mg/dL [facility] Glucose 94 70 - 199 mg/dL [facility] Comment: Interpretive Data Fasting glucose >/= [...] 2022. Calcium 8.8 8.5 - 10.3 mg/dL [facility] Blood 12/29/2024 4:11 AM CDT 12/29/2024 5:17 AM CDT Gus Higgins LAB BLOOD ORDERABLES Pricila l Result Performing Organization Address City/[facility]/ZIP Co de Phone Number [facility] [address] [address] Department of [employer] [place], [place] [address] * Troponin T high-sensitivity 6-hour (12/28/2024 12:42 AM CDT) Trop T hs 13 <=14 ng/L Comment: Interpretive Data For further hscTnT resources including the diagnostic algorithm and an aid in interpretation, copy and paste this link: [email or web address].[email or web address]/show/[email or web address] Current Interpretive Data last revised 2020. Trop T hs delta 1 ng/L [facility] Trop T hs interp Insignificant [facility] Blood 12/28/2024 12:4 2 AM CDT 12/28/2024 12:49 AM CDT aMbel Rodriguez LAB BLOOD ORDERABLES Final Result Performing Organization Address City/[facility]/ZIP Co de Phone Number NOEMI [address] [address] Department of [employer] [place] [address] * Phosphorus (12/28/2024 12:42 AM CDT) Phosphorus, pl 3.1 2.3 - 4.5 mg/dL Blood 12/28/2024 12:4 2 AM CDT 12/28/2024 4:25 PM CDT Gus Higgins DO LAB BLOOD ORDERABLES Pricila l Result Performing Organization Address City/[facility]/ZIP Co de Phone Number NOEMI ARECHIGA [address] [address] Department [employer] [place] [address] * Magnesium (12/28/2024 12:42 AM CDT) Magnesium 2.2 1.4 - 2.5 mg/dL Blood 12/28/2024 12:4 2 AM CDT 12/28/2024 4:25 PM CDT Gus Higgins DO LAB BLOOD ORDERABLES Pricila l Result Performing Organization Address [facility] Co de Phone Number NOEMI ARECHIGA [address] [address] Department [employer] [place] [address] * Troponin T high-sensitivity 4-hour (12/27/2024 10:25 PM CDT) Trop T hs 12 <=14 ng/L Comment: Interpretive Data For further hscTnT resources including the diagnostic algorithm and an aid in interpretation, copy and paste this link: [email or web address]/show/[email or web address] Current Interpretive Data last revised 2020. Trop T hs delta 0 ng/L [facility] Trop T hs interp Insignificant [facility] Blood 12/27/2024 10:2 5 PM CDT 12/27/2024 10:29 PM CDT Mabel Rodriguez SALES [employer] LAB BLOOD ORDERABLES Final Result Performing Organization Address City/[facility]/ZIP Co de Phone Number NEOMI ARECHIGA [address] [address] Department [employer] [place] [address] * Troponin T high-sensitivity 2-hour (12/27/2024 8:37 PM CDT) Trop T hs 13 <=14 ng/L Comment: Interpretive Data For further hscTnT resources including the diagnostic algorithm and an aid in interpretation, copy and paste this link: [email or web address]://nrl.[email or web address]/show/[email or web address] Current Interpretive Data last revised 2020. Trop T hs delta 1 ng/L [facility] Trop T hs interp Insignificant [facility] Blood 12/27/2024 8:37 PM CDT 12/27/2024 8:44 PM CDT Mabel Hyltonrama SALES AGENT [employer] LAB BLOOD ORDERABLES Final Result Performing Organization Address [facility] Co de Phone Number [facility] [address] [address] Department of [employer] [place] [address] * Troponin T high-sensitivity series (baseline, 2hr, 4hr, 6hr) (12/27/2024 6:48 PM CDT) Pathologist [facility] Trop T hs 12 <=14 ng/L Comment: Interpretive Data For further hscTnT resources including the diagnostic algorithm and an aid in interpretation, copy and paste this link: [email or web address].[email or web address]/show/[email or web address] Current Interpretive Data last revised 2020. Blood 12/27/2024 6:48 PM CDT 12/27/2024 6:53 PM CDT Mabel Hyltonrama SALES AG[employer] LAB BLOOD ORDERABLES Final Result Performing Organization Address [facility] Co de Phone Number [facility] [address] [address] Department of [employer] [place] [address] * eGFR (12/27/2024 6:48 PM CDT) eGFR [...] Rodriguez NP LAB BLOOD ORDERABLES Final Result [facility] [address] [address] Department [place] [address] * Differential, auto (12/27/2024 6:48 PM CDT) Neutrophil abs 6.4 1.5 - 6.5 K/cumm Imm gran abs 0.0 0.0 - 0.1 K/cumm [facility] Lymphocyte abs 1.7 0.8 - 3.3 K/cumm [facility] Monocyte abs 0.7 0.2 - 0.8 K/cumm [facility] Eosinophil abs 0.1 0.0 - 0.5 K/cumm [facility] Basophil abs 0.0 0.0 - 0.1 K/cumm [facility] Neutrophil pct 70.9 % [facility] Comment: Interpretive Data Percent cell count reference ranges are not reported, since discordance with absolute values may lead to misinterpretation of CBC data. Current Interpretive Data was last revised on 2018. Imm gran pct 0.4 % [facility] Comment: Interpretive Data Percent cell count reference ranges are not reported, since discordance with absolute values may lead to misinterpretation of CBC data. Current Interpretive Data was last revised on 2018. Lymphocyte pct 19.3 % [facility] Comment: Interpretive Data Percent cell count reference ranges are not reported, since discordance with absolute values may lead to misinterpretation of CBC data. Current Interpretive Data was last revised on 2018. Monocyte pct 7.4 % [facility] Comment: Interpretive Data Percent cell count reference ranges are not reported, since discordance with absolute values may lead to misinterpretation of CBC data. Current Interpretive Data was last revised on 2018. Eosinophil pct 1.6 % [facility] Comment: Interpretive Data Percent cell count reference ranges are not reported, since discordance with absolute values may lead to misinterpretation of CBC data. Current Interpretive Data was last revised on 2018. Basophil pct 0.4 % [facility] Comment: Interpretive Data Percent cell count reference ranges are not reported, since discordance with absolute values may lead to misinterpretation of CBC data. Current Interpretive Data was last revised on 2018. Blood 12/27/2024 6:48 PM CDT 12/27/2024 6:53 PM CDT Mabel Rodriguez NP LAB BLOOD ORDERABLES Final Result [facility] [address] [address] Department [place] [address] * CBC with auto differential (12/27/2024 6:48 PM CDT) WBC 9.0 3.8 - 9.9 K/cumm Hgb 12.4 11.9 - 15.5 g/dL [facility] Hct 37.6 35.6 - 45.5 % [facility] Plt 211 150 - 400 K/cumm [facility] MPV 9.8 9.1 - 12.3 fL [facility] RBC 4.20 3.90 - 5.20 M/cumm [facility] MCV 89.5 81.3 - 96.4 fL [facility] MCH 29.5 27.1 - 33.3 pg [facility] MCHC 33.0 32.3 - 35.7 g/dL [facility] RDW CV 13.1 11.1 - 14.9 % [facility] RDW SD 42.6 35.7 - 48.1 fL [facility] NRBC abs 0.00 0.00 - 0.01 K/cumm [facility] Blood 12/27/2024 6:48 PM CDT 12/27/2024 6:53 PM CDT Mabel Rodriguez NP LAB BLOOD ORDERABLES Final Result [facility] [address] [address] Department of [place] [id number] * (ABNORMAL) Comprehensive metabolic panel (12/27/2024 6:48 [...] LAB BLOOD ORDERABLES Final Result NOEMI ARECHIGA [address] Department [place] [address] * Cardiology Document Scan (12/27/2024 1:09 PM [...] by Sidney Martin M.D., MD: Report ID: [id number] [facility] 12/20/2022 11:41 AM CDT EXAM DESCRIPTION: US [...] Recently Relevant to Health Maintenance Insurance [employer] [id number] [id number] [employer] [facility] Advance Directives For more information, please contact: [phone] * Full Code (Latest Code Status on File) Date Activated Date Inactivated Comments 12/27/2024 6:08 PM 01/06/2025 10:43 PM Care Teams Supervisor Curing Room Relationship Specialty Start Date End Date Aleida Hu PA PCP - General Physician Word Processing Supervisor 02/21/21 Didier Quispe MD [id number] [place] [address] Surgeon Cardiothoracic Surgery 01/06/25 Angelique Durant NP [address] [facility] [address] [address] Nurse Practitioner Cardiovascular Disease 01/06/25
--- OUTSIDE RECORDS SUMMARY | 2025-02-17 18:46 | XMS_ITS | Encounter Summary ---
Author Organization [facility] Healthcare Address [address] [place] [address] Care Team Providers Care Debrander Name Role Phone Aleida Hu Primary Care Provider + Didier Quispe MD Unavailable [phone] Angelique Durant NP Unavailable [phone] Encounter Details Date Type Department Care Team (Late st Contact Info) Description 01/13/2025 [facility] Post Discharge Follow up phone call [facility] [id number] [place] [id number] Iza Vasquez Social History Tobacco Use Types Packs/Day Years Used Date Smoking Tobacco: Former Cigarettes Smokeless Tobacco: Never [facility] Utilities Answer Date Recorded In the past 12 months has [employer], gas, oil, or water company threatened [...] often do you attend chur ch or alevism services? Never 12/30/2024 Do you belong to any clubs o r organizations such as mormonism groups, unions, fraternal or athletic groups, or [...] any time in the past [address] [facility], were you homeless or living in a correction (including now)? No 12/30/2024 Personal Safety Answer [...] on filedocumented in this encounter Care Teams Debrander Relationship Specialty Start Date End Date Aleida Hu PA PCP - General Physician Firer Helper 02/21/21 Didier Quispe MD [id number] [place] [address] Surgeon Cardiothoracic Surgery 01/06/25 nAgelique Durant NP [address] [facility] [address] [address] Nurse Practitioner Cardiovascular Disease 01/06/25 documented as of this encounter
--- OUTSIDE RECORDS SUMMARY | 2025-02-17 18:46 | XMS_ITS | Clinical Summary ---
Author Organization [facility] Address [address] [place] [address] Care Team Providers Care Clinical Rehabilitation Specialist Name Role Phone None, Provider MD Primary [...] age to complete this topic Care Teams Clinical Rehabilitation Specialist Relationship Specialty Start Date End Date None, Provider, PCP - General 05/03/19
--- OUTSIDE RECORDS SUMMARY | 2025-02-17 18:46 | XMS_ITS | Referral Summary ---
Author Organization [facility] [address] [place] [address] 162 Address [address] [place] [address] Care Team Providers Care Child Welfare Caseworker Name Role Phone Aleida Hu Primary Care Provider + Didier Quispe MD Unavailable [phone] Angelique Durant NP Unavailable [phone] Encounters Date Type Department Care Team Description 02/11/2025 Orders Only [facility] [address] [facility] [address] [place] [address] Violeta Morelos NP Hx of CABG (Primary Dx) 02/09/2025 Orders Only [facility] [id number] [place] [address] [address] [place] [address] Herrera Lin NP Coronary artery disease involving nenana coronary artery of nenana heart without angina pectoris (Primary Dx) 02/06/2025 9:00 AM CDT Office Visit [facility] [address] [place] [address] [address] [place] [address] Didier Quispe MD Coronary artery disease involving nenana coronary artery of nenana heart without angina pectoris 01/29/2025 Telephone [facility] [address] [facility] [address] [place] [address] Remi Gomes MD 01/17/2025 Orders Only [facility] [address] [facility] [address] [place] [address] Violeta Morelos NP 01/13/2025 [facility] Post Discharge Follow up phone call [facility] [id number] [place] [address] Iza Vasquez 01/12/2025 Documentation [facility] [address] [facility] [address] [place] [phone] Dayne Moura NP 01/12/2025 Orders Only [facility] [address] [facility] [address] [place] [phone] Dayne Moura NP 12/27/2024 5:50 PM CDT - 01/06/2025 6:42 PM CDT Hospital Encounter [facility] [address] [place] [address] Gus Higgins DO Rudomiotov, Olga, MD Ray, Shuddhadeb, MD Coronary artery disease involving nenana coronary artery of nenana heart without angina pectoris (Primary Dx); Presence of stent in coronary artery Discharge Disposition: Discharge to home, home health skilled care 01/01/2025 Orders Only [facility] [address] [place] [address] [place] [phone] Roger Turcios MD 01/01/2025 8:20 AM CDT - 01/01/2025 2:05 PM CDT Surgery [facility] Operating Room [address] [place] [address] Didier Quispe MD CORONARY ARTERY BYPASS GRAFT - INTERNAL MAMMARY/RADIAL ARTERY/SAPHENOUS VEIN GRAFT - LEG 01/01/2025 8:51 AM CDT Anesthesia Event [facility] Operating Room [address] [place] [address] Fifi Keys MD Becker, Scott C 12/27/2024 Orders Only [facility] Health Information Management [address] [place] [address] Roger Turcios MD 12/26/2024 Telephone [facility] [address] [facility] [address] [place] [phone] Roger Turcios MD from Last 3 Months Allergies Active Allergy Reactions Criticality Noted Date Comments Erythromycin Other (See comments) Low 05/03/2019 States she was a baby and was told she was allergic Metoprolol Dizziness Low 12/30/2024 Kasrjnw-Nbe-Hwv Reductase Inhibitors Muscle pain Medium 12/30/2024 Medications [...] unspecified 04/24/2023 Body mass index 40.0-44.9, adult ([facility]) 01/09 Morbid (severe) obesity due to excess calories 0 02/28/2022 Coronary artery disease invo lving nenana coronary artery of nenana heart without angina pectoris 05/12/2021 History of coronary artery stent placement 05/12 Social History Tobacco Use Types Packs/Day Years Used Date Smoking Tobacco: Former Cigarettes Smokeless Tobacco: Never Tobacco Cessation:Counseling Given: Not Answered [facility] Utilities Answer Date Recorded In the past 12 months has e [employer], [employer] or [employer] threatened to shut off services in your [...] often do you attend chur ch or restorationist services? Never 12/30/2024 Do you belong to any clubs o r organizations such as cheondoism groups, unions, fraternal or athletic groups, or [...] any time in the past 12 m [facility], were you homeless or living in a chcf (including now)? No 12/30/2024 Personal Safety Answer [...] on file Medical Devices Implanted Type Area Lining Baster Device Identifier Shelf Expiration Date Model / Serial / Lot [employer] Plate Bone Low Profile 6 Hole O Shape Sternum Ti 115.104.06 - [id number] Implanted:Qty: 1 on 01/01/2025 by Didier Quispe MD at [facility] Plate N/A: Sternum [employer] 115.104.06 / / [employer] Plate Bone Low Profile 4 Hole Box Sternum Ti 115.103.04 - [id number] Implanted:Qty: 1 on 01/01/2025 by Didier Quispe MD at [facility] Plate N/A: Sternum [employer] 115.103.04 / / [employer] Plate Bone Low Profile 6 Hole H Shape Sternum Ti 115.102.06 - [id number] Implanted:Qty: 1 on 01/01/2025 by Didier Quispe MD at [facility] Plate N/A: Sternum [employer] 115.102.06 / / [employer] Screw Bone Slf Drl Full Thread Locking 3.5x18mm Ti 100.035.18 - [id number] Implanted:Qty: 16 on 01/01/2025 by Didier Quispe MD at [facility] Screw N/A: Sternum [employer] 100.035.18 / / Explanted Type Area Lining Baster Device Identifier Shelf Expiration Date Model / Serial / Lot [employer] Shunt Coronary Soft Conical Bulb Di Giorgio 1.67t14us Silicone [id number] - S00 - [id number] Explanted:Qt y: 1 on 01/01/2025 by Didier Quispe MD at [facility] Intraatrial Shunt Device N/A: Coronary Artery [employer] 02/20/2027 [id number] / 00 / [id number] Procedures Procedure Name Priority Date/Time Associated [...] 6:57 AM CDT Coronary artery disease involving nenana coronary artery of nenana heart without angina pectoris XR CHEST 1 [...] 9:29 PM CDT Coronary artery disease involving nenana coronary artery of nenana heart without angina pectoris CALCIUM,IONIZED, WHOLE BLOOD [...] 6:53 AM CDT Coronary artery disease involving nenana coronary artery of nenana heart without angina pectoris POCT GLUCOSE DEVICE [...] 7:43 PM CDT Coronary artery disease involving nenana coronary artery of nenana heart without angina pectoris POCT GLUCOSE DEVICE [...] 3:05 PM CDT Coronary artery disease involving nenana coronary artery of nenana heart without angina pectoris POC BLOOD GAS [...] LINE PLACEMENT Routine 01/01/2025 10:03 AM CDT SD AN ELECTIVE ENDOTRACHEAL AIRWAY Routine 01/01/2025 10:02 [...] 8:50 AM CDT Coronary artery disease of nenana heart with stable angina pectoris, unspecified vessel [...] FINDINGS: The distal tip of the retracted Mansfield-Lindsay catheter is in the superior vena cava. [...] FINDINGS: The distal tip of the retracted Mansfield-Lindsay catheter is in the superior vena cava. Lungs clear other than for subsegmental atelectasis in the medial left lower lobe. Cardiovascular structures unremarkable. IMPRESSION: No active disease. Electronically signed by: Nilson Solomon M.D. us Herrera Lin BUGGY MAN IMG XR PROCEDURES Final Re sult * eGFR (01/06/2025 6:25 AM CDT) Pathologist [facility] eGFR [...] NP LAB BLOOD ORDERABLES Final Result [facility] [address] Department [place] [address] * (ABNORMAL) CBC without differential (01/06/2025 6:25 AM CDT) Pathologist [facility] WBC 7.5 3.8 - 9.9 K/cumm Hgb 9.1(L) 11.9 - 15.5 g/dL [facility] Hct 27.6(L) 35.6 - 45.5 % [facility] Plt 267 150 - 400 K/cumm [facility] MPV 10.1 9.1 - 12.3 fL [facility] RBC 2.97(L) 3.90 - 5.20 M/cumm CERNER [...] NP LAB BLOOD ORDERABLES Final Result [facility] [address] Department [place] [address] * Basic metabolic panel (01/06/2025 6:25 AM CDT) Sodium 140 135 - 145 mmol/L Potassium, pl 3.7 3.3 - 4.9 mmol/L [facility] Chloride 105 97 - 110 mmol/L [facility] CH CO2 22 22 - 32 mmol/L [facility] CH Anion gap 13 2 - 15 mmol/L [facility] BUN 12 6 - 25 mg/dL [facility] Creatinine 0.79 0.60 - 1.10 mg/dL [facility] Glucose 100 70 - 199 mg/dL [facility] Comment: Interpretive Data Fasting glucose >/= 126 [...] Calcium 8.8 8.5 - 10.3 mg/dL [facility] Blood 01/06/2025 6:25 AM CDT 01/06/2025 7:24 AM CDT Dayne Moura NP LAB BLOOD ORDERABLES Final Result [facility] [address] Department [place] [address] * XR Chest PA Lateral 2 Views [...] NP LAB BLOOD ORDERABLES Final Result [facility] [address] Department [employer] [place], [place] [id number] * (ABNORMAL) aPTT (01/05/2025 5:13 AM CDT) aPTT 27(L) 28 - 38 sec Comment: Interpretive Data Heparin therapeutic range: 66.0 - 100.0 seconds. Range based on correlation with therapeutic heparin activity range of 0.3 - 0.7 Units/mL. Current interpretive data was last revised on 2023. Blood 01/05/2025 5:13 AM CDT 01/05/2025 6:10 AM CDT Dyane Moura NP [place] [address] [address] Department of [place], [place] [id number] * Protime-INR (01/05/2025 5:13 AM CDT) PT 12.7 9.7 - 13.0 sec INR 1.17 0.90 - 1.20 [facility] Comment: Interpretive data Oral anticoagulant therapeutic ranges: Venous thromboembolism prophylaxis or treatment: 2.0-3.0 CARDIOLOGY Standard range: 2.0-3.0 High-intensity range: 2.5-3.5 Refer to indication-specific guidelines for appropriate target ranges for prosthetic heart valve replacement. Current interpretive data was last revised on 2019. Blood 01/05/2025 5:13 AM CDT 01/05/2025 6:10 AM CDT Dayne Moura NP LAB BLOOD ORDERABLES Final Result Performing Organization Address City/[facility] de Phone Number [facility] [address] Department [place] [address] * (ABNORMAL) CBC without differential (01/05/2025 5:13 AM CDT) WBC 8.1 3.8 - 9.9 K/cumm Hgb 8.4(L) 11.9 - 15.5 g/dL [facility] Hct 26.3(L) 35.6 - 45.5 % [facility] Plt 210 150 - 400 K/cumm [facility] MPV 10.3 9.1 - 12.3 fL [facility] RBC 2.81(L) 3.90 - 5.20 M/cumm [facility] MCV 93.6 81.3 - 96.4 fL [facility] MCH 29.9 27.1 - 33.3 pg [facility] MCHC 31.9(L) 32.3 - 35.7 g/dL [facility] RDW CV 13.6 11.1 - 14.9 % [facility] RDW SD 46.5 35.7 - 48.1 fL [facility] NRBC abs 0.00 0.00 - 0.01 K/cumm [facility] Blood 01/05/2025 5:13 AM CDT 01/05/2025 6:10 AM CDT Dayne Moura NP LAB BLOOD ORDERABLES Final Result [facility] [address] Department [place] [address] * Basic metabolic panel (01/05/2025 5:13 AM CDT) Sodium 139 135 - 145 mmol/L Potassium, pl 3.7 3.3 - 4.9 mmol/L [facility] Chloride 105 97 - 110 mmol/L [facility] CO2 22 22 - 32 mmol/L [facility] Anion gap 12 2 - 15 mmol/L [facility] BUN 12 6 - 25 mg/dL [facility] Creatinine 0.73 0.60 - 1.10 mg/dL [facility] Glucose 105 70 - 199 mg/dL [facility] Comment: Interpretive Data Fasting glucose >/= [...] 2022. Calcium 8.5 8.5 - 10.3 mg/dL [facility] Blood 01/05/2025 5:13 AM CDT 01/05/2025 6:09 AM CDT Dayne Moura BUGGY MAN LAB BLOOD ORDERABLES Final Result Performing Organization Address City/[facility]/ZIP Co de Phone Number [facility] [address] Department [place] [address] * POCT glucose (01/04/2025 9:45 PM CDT) Glucose, POC 115 70 - 199 mg/dL POC Performer [id number] [facility] Blood 01/04/2025 9:45 PM CDT 01/04/2025 9:45 PM CDT Didier Quispe MD LAB POCT ORDERABLES - DEVICE F inal Result Performing Organization Address City/[facility]/ZIP Co de Phone Number [facility] [address] [place] [address] * POCT glucose (01/04/2025 7:43 AM CDT) Glucose, POC 103 70 - 199 mg/dL POC Performer [id number] [facility] Blood 01/04/2025 7:43 AM CDT 01/04/2025 7:43 AM CDT Didier Quispe MD LAB POCT ORDERABLES - DEVICE F inal Result Performing Organization Address [facility] Co de Phone Number [facility] [address] Department [place] [address] * XR Chest 1 View - Portable [...] 01/04/2025 6:21 AM CDT us Dayne Moura BUGGY MAN LAB BLOOD ORDERABLES Final Result [facility] [address] Department [place] [address] * (ABNORMAL) CBC without differential (01/04/2025 5:10 AM CDT) WBC 10.8(H) 3.8 - 9.9 K/cumm Hgb 8.3(L) 11.9 - 15.5 g/dL [facility] Hct 25.9(L) 35.6 - 45.5 % [facility] Plt 173 150 - 400 K/cumm [facility] MPV 10.5 9.1 - 12.3 fL [facility] RBC 2.78(L) 3.90 - 5.20 M/cumm [facility] MCV 93.2 81.3 - 96.4 fL [facility] MCH 29.9 27.1 - 33.3 pg [facility] MCHC 32.0(L) 32.3 - 35.7 g/dL [facility] RDW CV 13.7 11.1 - 14.9 % [facility] RDW SD 47.1 35.7 - 48.1 fL [facility] NRBC abs 0.00 0.00 - 0.01 K/cumm [facility] Blood 01/04/2025 5:10 AM CDT 01/04/2025 6:20 AM CDT Dayne Moura BUGGY MAN LAB BLOOD ORDERABLES Final Result Performing Organization Address [facility] Co de Phone Number [facility] [address] [facility] [place] [address] * Magnesium (01/04/2025 5:10 AM CDT) Pathologist [facility] Magnesium 2.2 1.4 - 2.5 mg/dL Blood 01/04/2025 5:10 AM CDT 01/04/2025 6:21 AM CDT Dayne Moura BUGGY MAN LAB BLOOD ORDERABLES Final Result Performing Organization Address [facility] de Phone Number [facility] [address] [place] [address] * Basic metabolic panel (01/04/2025 5:10 AM CDT) Sodium 139 135 - 145 mmol/L Potassium, pl 4.3 3.3 - 4.9 mmol/L [facility] Chloride 107 97 - 110 mmol/L [facility] CO2 22 22 - 32 mmol/L [facility] Anion gap 10 2 - 15 mmol/L [facility] BUN 11 6 - 25 mg/dL [facility] Creatinine 0.73 0.60 - 1.10 mg/dL [facility] Glucose 107 70 - 199 mg/dL [facility] Comment: Interpretive Data Fasting glucose >/= 126 [...] 2022. Calcium 8.5 8.5 - 10.3 mg/dL [facility] Blood 01/04/2025 5:10 AM CDT 01/04/2025 6:21 AM CDT Dayne Moura NP LAB BLOOD ORDERABLES Final Result Performing Organization Address City/[facility]/ZIP Co de Phone Number [facility] [address] [place] [address] * POCT glucose (01/03/2025 8:07 PM CDT) Glucose, POC 130 70 - 199 mg/dL POC Performer [id number] [facility] Blood 01/03/2025 8:07 PM CDT 01/03/2025 8:07 PM CDT Didier Quispe MD LAB POCT ORDERABLES - DEVICE F inal Result Performing Organization Address City/[facility]/ZIP Co de Phone Number [facility] [address] [place] [address] * Calcium, ionized, whole blood (01/03/2025 1:35 PM CDT) Ca, ionized, bld 4.63 4.50 - 5.10 mg/dL Blood 01/03/2025 1:35 PM CDT 01/03/2025 1:39 PM CDT Carolin Feng BUGGY MAN LAB BLOOD ORDERABLES F inal Result Performing Organization Address [facility] de Phone Number [facility] [address] [facility] [place] [address] * eGFR (01/03/2025 1:35 PM [...] CDT 01/03/2025 1:49 PM CDT Carolin Feng BUGGY MAN LAB BLOOD ORDERABLES F inal Result Performing Organization Address [facility] de Phone Number [facility] [address] [place] [address] * Magnesium (01/03/2025 1:35 PM CDT) Magnesium 2.2 1.4 - 2.5 mg/dL Blood 01/03/2025 1:35 PM CDT 01/03/2025 1:39 PM CDT Carolin Feng BUGGY MAN LAB BLOOD ORDERABLES F inal Result Performing Organization Address [facility]/ZIP Co de Phone Number [facility] [address] Department of Laboratories [place], [place] [id number] * (ABNORMAL) Renal function panel (01/03/2025 1:35 PM CDT) Sodium 137 135 - 145 mmol/L Potassium, pl 4.4 3.3 - 4.9 mmol/L [facility] Chloride 107 97 - 110 mmol/L [facility] CO2 20(L) 22 - 32 mmol/L [facility] Anion gap 10 2 - 15 mmol/L [facility] BUN 10 6 - 25 mg/dL [facility] Creatinine 0.71 0.60 - 1.10 mg/dL [facility] Glucose 114 70 - 199 mg/dL [facility] Comment: Interpretive Data Fasting glucose >/= 126 [...] 2022. Calcium 8.6 8.5 - 10.3 mg/dL [facility] Phosphorus, pl 2.7 2.3 - 4.5 mg/dL [facility] Albumin 3.5 3.5 - 5.0 g/dL [facility] Blood 01/03/2025 1:35 PM CDT 01/03/2025 1:39 PM CDT Carolin Feng BUGGY MAN LAB BLOOD ORDERABLES F inal Result Performing Organization Address City/[facility]/ZIP Co de Phone Number [facility] [address] Department of Laboratories [place], [place] [id number] * POCT glucose (01/03/2025 12:18 PM CDT) Glucose, POC 113 70 - 199 mg/dL POC Performer [id number] [facility] Blood 01/03/2025 12:1 8 PM CDT 01/03/2025 12:18 PM CDT Didier Quispe MD LAB POCT ORDERABLES - DEVICE F inal Result Performing Organization Address [facility] Co de Phone Number [facility] [address] [place] [address] * POCT glucose (01/03/2025 7:37 AM CDT) Glucose, POC 126 70 - 199 mg/dL POC Performer [id number] [facility] Blood 01/03/2025 7:37 AM CDT 01/03/2025 7:37 AM CDT Didier Quispe MD LAB POCT ORDERABLES - DEVICE F inal Result Performing Organization Address [facility] Co de Phone Number [facility] [address] [place] [address] * Critical Care (01/03/2025 6:57 AM CDT) [...] plan with the patient's team and other medical/sales support consultant staff. This time was in addition [...] BLOOD ORDERABLES Final Res ult [facility] [address] Department [employer] [place], [place] [phone] * Calcium, ionized, whole blood (01/03/2025 3:49 AM CDT) Ca, ionized, bld 5.07 4.50 - 5.10 mg/dL Blood 01/03/2025 3:49 AM CDT 01/03/2025 3:55 AM CDT us Dayne Moura NP LAB BLOOD ORDERABLES Final Result Performing Organization Address City/[facility] Co de Phone Number [facility] [address] [place], [place] [id number] * eGFR (01/03/2025 3:49 AM CDT) eGFR [...] CDT 01/03/2025 3:56 AM CDT Dayne Moura BUGGY MAN LAB BLOOD ORDERABLES Final Result Performing Organization Address City/[facility]/ZIP Co de Phone Number [facility] [address] [facility] [employer] [place], [place] [id number] * POCT glucose (01/03/2025 3:49 AM CDT) Pathologist [facility] Glucose, POC 121 70 - 199 mg/dL POC Performer [id number] [facility] Blood 01/03/2025 3:49 AM CDT 01/03/2025 3:49 AM CDT Didier Quispe MD LAB POCT ORDERABLES - DEVICE F inal Result Performing Organization Address [facility] Co de Phone Number [facility] [address] [place] [address] * (ABNORMAL) CBC without differential (01/03/2025 3:49 AM CDT) WBC 11.9(H) 3.8 - 9.9 K/cumm Hgb 8.9(L) 11.9 - 15.5 g/dL [facility] Hct 28.0(L) 35.6 - 45.5 % [facility] Plt 154 150 - 400 K/cumm [facility] MPV 10.2 9.1 - 12.3 fL [facility] RBC 3.01(L) 3.90 - 5.20 M/cumm [facility] MCV 93.0 81.3 - 96.4 fL [facility] MCH 29.6 27.1 - 33.3 pg [facility] MCHC 31.8(L) 32.3 - 35.7 g/dL [facility] RDW CV 13.5 11.1 - 14.9 % [facility] RDW SD 46.5 35.7 - 48.1 fL [facility] NRBC abs 0.00 0.00 - 0.01 K/cumm [facility] Blood 01/03/2025 3:49 AM CDT 01/03/2025 3:56 AM CDT Dayne Moura BUGGY MAN LAB BLOOD ORDERABLES Final Result Performing Organization Address City/[facility]/ZIP Co de Phone Number [facility] [address] [place] [address] * Magnesium (01/03/2025 3:49 AM CDT) Pathologist [facility] Magnesium 1.9 1.4 - 2.5 mg/dL Blood 01/03/2025 3:49 AM CDT 01/03/2025 3:56 AM CDT Dayne Moura BUGGY MAN LAB BLOOD ORDERABLES Final Result Performing Organization Address [facility] de Phone Number [facility] [address] [place] [address] * (ABNORMAL) Basic metabolic panel (01/03/2025 3:49 AM CDT) Pathologist [facility] Sodium 139 135 - 145 mmol/L Potassium, pl 4.4 3.3 - 4.9 mmol/L [facility] Chloride 106 97 - 110 mmol/L [facility] CO2 22 22 - 32 mmol/L [facility] Anion gap 11 2 - 15 mmol/L [facility] BUN 9 6 - 25 mg/dL [facility] Creatinine 0.76 0.60 - 1.10 mg/dL [facility] Glucose 116 70 - 199 mg/dL [facility] Comment: Interpretive Data Fasting glucose >/= 126 [...] 2022. Calcium 8.4(L) 8.5 - 10.3 mg/dL [facility] Blood 01/03/2025 3:49 AM CDT 01/03/2025 3:56 AM CDT us Dayne Moura BUGGY MAN LAB BLOOD ORDERABLES Final Result Performing Organization Address [facility] Co de Phone Number [facility] [address] [address] [place] [address] * POCT glucose (01/03/2025 12:03 AM CDT) Glucose, POC 139 70 - 199 mg/dL POC Performer [id number] [facility] Blood 01/03/2025 12:0 3 AM CDT 01/03/2025 12:03 AM CDT Didier Quispe MD LAB POCT ORDERABLES - DEVICE F inal Result Performing Organization Address [facility] Co de Phone Number [facility] [address] [place] [address] * Critical Care (01/02/2025 9:29 PM CDT) [...] plan with the ICU team and other medical/sales support consultant staff, making frequent assessments and decisions [...] MD LAB BLOOD ORDERABLES Final Res ult [facility] [address] Department [place] [address] * (ABNORMAL) Blood gas, arterial (01/02/2025 8:56 [...] LAB BLOOD ORDERABLES Final Res ult NOEMI [address] [place] [address] * XR Chest 1 Vw Portable (01/02/2025 [...] lungs are clear. Bilateral thoracostomy tubes and Mansfield-Lindsay catheter are in good position. Procedure Note [...] lungs are clear. Bilateral thoracostomy tubes and Mansfield-Lindsay catheter are in good position. IMPRESSION: No change since the last study. Electronically signed by: Nilson Solomon M.D. Didier Quispe MD IMG XR PROCEDURES Final Result * POCT glucose (01/02/2025 7:42 PM CDT) Glucose, POC 124 70 - 199 mg/dL POC Performer [id number] NOEMI ARECHIGA Blood 01/02/2025 7:42 PM CDT 01/02/2025 7:42 PM CDT us Didier Quispe MD LAB POCT ORDERABLES - DEVICE F inal Result Performing Organization Address [facility] Co de Phone Number NOEMI ARECHIGA [address] [facility] [place] [address] * POCT glucose (01/02/2025 5:33 PM CDT) Glucose, POC 115 70 - 199 mg/dL POC Performer [id number] [facility] Blood 01/02/2025 5:33 PM CDT 01/02/2025 5:33 PM CDT Didier Quispe MD LAB POCT ORDERABLES - DEVICE F inal Result Performing Organization Address [facility] Phone Number NOEMI [address] [place] [address] * ECG 12 lead (01/02/2025 4:58 PM CDT) 01/02/2025 4:58 PM CDT Narrative [facility] - 01/02/2025 9:08 PM CDT Vent Rate: 116 bpm RR Interval: 513 msec SD Interval: 136 msec QRS Duration: 85 msec QT Interval: 338 msec QTC Interval: 407 msec P-R-T Cove: 37 - 84 - 50 degrees IMPRESSION: SINUS TACHYCARDIA POSSIBLE ANTERIOR MYOCARDIAL INFARCTION , OF INDETERMINATE AGE [30 ms Q WAVE IN V3/V4, OR R < 0.2 mV IN V4] POSSIBLE INFERIOR MYOCARDIAL INFARCTION , OF INDETERMINATE AGE [30 ms Q WAVE IN II/aVF] ABNORMAL ECG Electronically Signed By: Dr. Rivera Epps Nhi Pruett MD ECG ORDERABLES Final Result Performing Organization Address [facility] Co de Phone Number [facility] Refresh Body [facility] * (ABNORMAL) Calcium, ionized, whole blood (01/02/2025 1:31 PM CDT) Ca, ionized, bld 4.41(L) 4.50 - 5.10 mg/dL Blood 01/02/2025 1:31 PM CDT 01/02/2025 1:43 PM CDT Carolin Feng BUGGY MAN LAB BLOOD ORDERABLES F inal Result Performing Organization Address [facility] de Phone Number NOEMI [address] [place] [place], [place] [id number] * eGFR (01/02/2025 1:31 PM CDT) Pathologist [...] CDT 01/02/2025 1:51 PM CDT Carolin Feng BUGGY MAN LAB BLOOD ORDERABLES F inal Result Performing Organization Address [facility] Co de Phone Number NOEMI [address] [place] [address] * (ABNORMAL) CBC without differential (01/02/2025 1:31 PM CDT) Pathologist [facility] WBC 12.0(H) 3.8 - 9.9 K/cumm Hgb [...] ORDERABLES Final Res ult Performing Organization Address City/[facility] Co de Phone Number [facility] [address] [place] [address] * Magnesium (01/02/2025 1:31 PM CDT) [facility] Magnesium 2.3 1.4 - 2.5 mg/dL Blood 01/02/2025 1:31 PM CDT 01/02/2025 1:43 PM CDT Carolin Feng NP LAB BLOOD ORDERABLES F inal Result Performing Organization Address [facility] Co de Phone Number [facility] [address] [place] [address] * (ABNORMAL) Renal function panel (01/02/2025 1:31 PM CDT) Sodium 140 135 - 145 mmol/L Potassium, pl 4.1 3.3 - 4.9 mmol/L [facility] Chloride 107 97 - 110 mmol/L [facility] CO2 20(L) 22 - 32 mmol/L [facility] Anion gap 13 2 - 15 mmol/L [...] CERNER Albumin 3.8 3.5 - 5.0 g/dL [facility] Blood 01/02/2025 1:31 PM CDT 01/02/2025 1:43 PM CDT Carolin Feng BUGGY MAN LAB BLOOD ORDERABLES F inal Result Performing Organization Address [facility] Co de Phone Number NOEMI ARECHIGA [address] [place] [address] * POCT glucose (01/02/2025 12:12 PM CDT) [facility] Glucose, POC 105 70 - 199 mg/dL POC Performer [id number] [facility] Blood 01/02/2025 12:1 2 PM CDT 01/02/2025 12:12 PM CDT Didier Quispe MD LAB POCT ORDERABLES - DEVICE F inal Result Performing Organization Address [facility] Co de Phone Number NOEMI [address] [place] [address] * POCT glucose (01/02/2025 10:25 AM CDT) Glucose, POC 89 70 - 199 mg/dL POC Performer [id number] [facility] Blood 01/02/2025 10:2 5 AM CDT 01/02/2025 10:25 AM CDT Didier Quispe MD LAB POCT ORDERABLES - DEVICE F inal Result Performing Organization Address [facility] Phone Number NOEMI [address] [place] [address] * POCT glucose (01/02/2025 8:27 AM CDT) Glucose, POC 114 70 - 199 mg/dL POC Performer [id number] [facility] Blood 01/02/2025 8:27 AM CDT 01/02/2025 8:27 AM CDT Didier Quispe MD LAB POCT ORDERABLES - DEVICE F inal Result Performing Organization Address [facility] Phone Number [facility] [address] [facility] [place] [address] * ECG 12 lead (01/02/2025 7:22 AM CDT) 01/02/2025 7:22 AM CDT Narrative [facility] - 01/02/2025 8:00 AM CDT Vent Rate: 78 bpm RR Interval: 762 msec SD Interval: 154 msec QRS Duration: 92 msec QT Interval: 381 msec QTC Interval: 415 msec P-R-T Cove: 41 - 74 - 84 degrees IMPRESSION: SINUS RHYTHM PROBABLE INFERIOR MYOCARDIAL INFARCTION , OF INDETERMINATE AGE [35 ms Q WAVE IN II/aVF] ABNORMAL ECG Electronically Signed By: Dr. Caprice Kendrick [facility] Didier Quispe MD ECG ORDERABLES Final Result Performing Organization Address [facility] Phone Number [facility] Refresh Body [facility] * Critical Care (01/02/2025 6:53 AM [...] plan with the ICU team and other medical/sales support consultant staff, making frequent assessments and decisions [...] monitors, laboratory results, and imaging Carolin Feng BUGGY MAN IN CLINIC/BEDSIDE [facility] Final Result * POCT glucose (01/02/2025 6:08 AM CDT) Glucose, POC 134 70 - 199 mg/dL POC Performer [id number] NOEMI ARECHIGA Blood 01/02/2025 6:08 AM CDT 01/02/2025 6:08 AM CDT Didier Quispe MD LAB POCT ORDERABLES - DEVICE F inal Result NOEMI [address] Department [place] [address] * XR Chest 1 View - Portable [...] tubes. Thoracostomy tubes and mediastinal drain and Mansfield-Lindsay catheter stable. Cardiomegaly with postsurgical changes stable. Decreasing but continued mild pulmonary vascular congestion. No pneumothorax Procedure Note Gama Harrison MD - 01/02/2025 EXAMINATION: XR CHEST 1 VIEW DATE: 01/02/2025 5:25 AM HISTORY: Cardiac surgery FINDINGS:Compared with study of the prior day, patient extubated with removal of ET and NG tubes. Thoracostomy tubes and mediastinal drain and Mansfield-Lindsay catheter stable. Cardiomegaly with postsurgical changes stable. Decreasing but continued mild pulmonary vascular congestion. No pneumothorax IMPRESSION: Extubation. Decreasing failure. Electronically signed by: Gama Harrison M.D. Nhi Pruett MD IMG XR PROCEDURES Final Resul t * POCT glucose (01/02/2025 5:06 AM CDT) [facility] Signature Glucose, POC 133 70 - 199 mg/dL POC Performer [id number] NOEMI ARECHIGA Blood 01/02/2025 5:06 AM CDT 01/02/2025 5:06 AM CDT Didier Quispe MD LAB POCT ORDERABLES - DEVICE F inal Result NOEMI ARECHIGA [address] [facility] [place] [address] * POCT glucose (01/02/2025 4:05 AM CDT) Glucose, POC 131 70 - 199 mg/dL POC Performer [id number] [facility] Blood 01/02/2025 4:05 AM CDT 01/02/2025 4:05 AM CDT Didier Quispe MD LAB POCT ORDERABLES - DEVICE F inal Result Performing Organization Address [facility] Co de Phone Number NOEMI ARECHIGA [address] [place] [address] * Oxyhemoglobin, pulmonary artery (01/02/2025 3:13 AM CDT) Oxyhemoglobin, PA 66.2 % Comment: Interpretive Data No reference range established. Current interpretive data was last revised 2019. Blood 01/02/2025 3:13 AM CDT 01/02/2025 3:15 AM CDT Yan Perry MD LAB BLOOD ORDERABL ES Final Result Performing Organization Address [facility] Co de Phone Number NOEMI ARECHIGA [address] [place] [address] * Lactate (01/02/2025 3:13 AM CDT) Lactate 1.9 0.7 - 2.0 mmol/L Blood 01/02/2025 3:13 AM CDT 01/02/2025 3:16 AM CDT Yan Perry MD LAB BLOOD ORDERABL ES Final Result Performing Organization Address [facility] Co de Phone Number NOEMI [address] [place] [address] * eGFR (01/02/2025 3:13 AM CDT) Pathologist [facility] eGFR [...] MD LAB BLOOD ORDERABLES Final Re sult [facility] [address] Department [place] [address] * (ABNORMAL) Differential, auto (01/02/2025 3:13 AM CDT) Pathologist [facility] Neutrophil abs 9.3(H) 1.5 - 6.5 K/cumm Imm gran abs 0.1 0.0 - 0.1 K/cumm [facility] Lymphocyte abs 1.0 0.8 - 3.3 K/cumm [facility] Monocyte abs 1.1(H) 0.2 - 0.8 K/cumm [facility] Eosinophil abs 0.0 0.0 - 0.5 K/cumm [facility] Basophil abs 0.0 0.0 - 0.1 K/cumm [facility] Neutrophil pct 81.3 % [facility] Comment: Interpretive Data Percent cell count reference [...] LAB BLOOD ORDERABLES Final Re sult NOEMI [address] Department [place] [address] * (ABNORMAL) CBC with auto differential (01/02/2025 3:13 AM CDT) WBC 11.4(H) 3.8 - 9.9 K/cumm Hgb 9.9(L) 11.9 - 15.5 g/dL NOEMI Hct 29.2(L) 35.6 - 45.5 % [facility] Plt 191 150 - 400 K/cumm [facility] MPV 10.1 9.1 - 12.3 fL C[facility] RBC 3.29(L) 3.90 - 5.20 M/cumm [facility] CH MCV 88.8 81.3 - 96.4 fL [facility] CH MCH 30.1 27.1 - 33.3 pg CERN[facility] MCHC 33.9 32.3 - 35.7 g/dL [facility] CH RDW CV 13.2 11.1 - 14.9 % [facility] CH RDW SD 43.0 35.7 - 48.1 fL [facility] NRBC abs 0.00 0.00 - 0.01 K/cumm [facility] Blood 01/02/2025 3:13 AM CDT 01/02/2025 3:17 AM CDT Nhi Pruett MD LAB BLOOD ORDERABLES Final Re sult Performing Organization Address [facility] de Phone Number [facility] [address] [place] [address] * Magnesium (01/02/2025 3:13 AM CDT) Magnesium 2.5 1.4 - 2.5 mg/dL Blood 01/02/2025 3:13 AM CDT 01/02/2025 3:17 AM CDT Nhi Pruett MD LAB BLOOD ORDERABLES Final Re sult Performing Organization Address [facility] de Phone Number [facility] [address] [place] [address] * (ABNORMAL) Blood gas, arterial (01/02/2025 3:13 AM CDT) pH, Art 7.40 7.35 - 7.45 PCO2, Arterial 38 35 - 45 mmHg [facility] PO2, Arterial 106 83 - 108 mmHg [facility] HCO3 Art (Calculated) 24 20 - 30 mmol/L [facility] CH BE, art -1 mmol/L [facility] Comment: Interpretive Data No Reference Range Established Current Interpretive Data was last revised on 2017 O2 Sat Art (Measured) 98(H) 90 - 95 % [facility] Blood 01/02/2025 3:13 AM CDT 01/02/2025 3:16 AM CDT us Didier Quispe MD LAB BLOOD ORDERABLES Final Res ult [facility] [address] Department [place] [address] * (ABNORMAL) Basic metabolic panel (01/02/2025 3:13 AM CDT) Sodium 141 135 - 145 mmol/L Potassium, pl 4.4 3.3 - 4.9 mmol/L [facility] Chloride 108 97 - 110 mmol/L [facility] CO2 23 22 - 32 mmol/L [facility] Anion gap 10 2 - 15 mmol/L [facility] BUN 9 6 - 25 mg/dL [facility] Creatinine 0.70 0.60 - 1.10 mg/dL [facility] Glucose 125 70 - 199 mg/dL [facility] Comment: Interpretive Data Fasting glucose >/= 126 [...] Calcium 8.1(L) 8.5 - 10.3 mg/dL [facility] Blood 01/02/2025 3:13 AM CDT 01/02/2025 3:17 AM CDT us Nhi Pruett MD LAB BLOOD ORDERABLES Final Re sult [facility] [address] [place] [address] * POCT glucose (01/02/2025 3:08 AM CDT) Glucose, POC 125 70 - 199 mg/dL POC Performer [id number] [facility] Blood 01/02/2025 3:08 AM CDT 01/02/2025 3:08 AM CDT Didier Quispe MD LAB POCT ORDERABLES - DEVICE F inal Result Performing Organization Address [facility] Co de Phone Number NOEMI ARECHIGA [address] [place] [address] * POCT glucose (01/02/2025 2:03 AM CDT) Glucose, POC 129 70 - 199 mg/dL POC Performer [id number] [facility] Blood 01/02/2025 2:03 AM CDT 01/02/2025 2:03 AM CDT Didier Quispe MD LAB POCT ORDERABLES - DEVICE F inal Result Performing Organization Address [facility] Co de Phone Number NOEMI ARECHIGA [address] [facility] [place] [address] * POCT glucose (01/02/2025 1:06 AM CDT) Glucose, POC 135 70 - 199 mg/dL POC Performer [id number] [facility] Blood 01/02/2025 1:06 AM CDT 01/02/2025 1:06 AM CDT Didier Quispe MD LAB POCT ORDERABLES - DEVICE F inal Result Performing Organization Address [facility] Co de Phone Number NOEMI ARECHIGA [address] [facility] [place] [place] [address] * POCT glucose (01/01/2025 11:57 PM CDT) Glucose, POC 147 70 - 199 mg/dL POC Performer [id number] [facility] Blood 01/01/2025 11:5 7 PM CDT 01/01/2025 11:57 PM CDT Didier Quispe MD LAB POCT ORDERABLES - DEVICE F inal Result Performing Organization Address [facility] Co de Phone Number NOEMI ARECHIGA [address] [place] [address] * POCT glucose (01/01/2025 10:57 PM CDT) Glucose, POC 163 70 - 199 mg/dL POC Performer [id number] [facility] Blood 01/01/2025 10:5 7 PM CDT 01/01/2025 10:57 PM CDT Didier Quispe MD LAB POCT ORDERABLES - DEVICE F inal Result Performing Organization Address [facility] Co de Phone Number NOEMI ARECHIGA [address] [place] [address] * POCT glucose (01/01/2025 9:29 PM CDT) Glucose, POC 171 70 - 199 mg/dL POC Performer [id number] [facility] Blood 01/01/2025 9:29 PM CDT 01/01/2025 9:29 PM CDT Didier Quispe MD LAB POCT ORDERABLES - DEVICE F inal Result Performing Organization Address [facility] Co de Phone Number NOEMI ARECHIGA [address] [facility] [place] [place] [address] * Potassium, whole blood (01/01/2025 7:48 PM CDT) [facility] Potassium, bld 4.5 3.3 - 4.9 mmol/L [...] ORDERABLES Fi nal Result Performing Organization Address City/[facility]/ZIP Co de Phone Number NOEMI [address] [employer] [employer] [place], [place] [address] * Calcium, ionized, whole blood (01/01/2025 7:48 PM CDT) Ca, ionized, bld 4.54 4.50 - 5.10 mg/dL Blood 01/01/2025 7:48 PM CDT 01/01/2025 7:50 PM CDT us Yan Perry MD LAB BLOOD ORDERABL ES Final Result Performing Organization Address [facility] [place] Co de Phone Number NOEMI [address] [place] [address] * eGFR (01/01/2025 7:48 PM [...] ORDERABL ES Final Result Performing Organization Address City/[facility]/ZIP Co de Phone Number NOEMI [address] [place] [address] * (ABNORMAL) CBC without differential (01/01/2025 7:48 PM CDT) WBC 15.2(H) 3.8 - 9.9 K/cumm Hgb 10.7(L) 11.9 - 15.5 g/dL [facility] Hct 32.4(L) 35.6 - 45.5 % [facility] Plt 210 150 - 400 K/cumm [facility] CH MPV 10.0 9.1 - 12.3 fL [facility] RBC 3.57(L) 3.90 - 5.20 M/cumm [facility] CH MCV 90.8 81.3 - 96.4 fL [facility] CH MCH 30.0 27.1 - 33.3 pg [facility] CH MCHC 33.0 32.3 - 35.7 g/dL [facility] CH RDW CV 13.2 11.1 - 14.9 % [facility] RDW SD 43.5 35.7 - 48.1 fL [facility] NRBC abs 0.00 0.00 - 0.01 K/cumm [facility] Blood 01/01/2025 7:48 PM CDT 01/01/2025 7:51 PM CDT us Yan Perry MD LAB BLOOD ORDERABL ES Final Result Performing Organization Address City/[facility]/ZIP Co de Phone Number NOEMI ARECHIGA [address] [place] [address] * Magnesium (01/01/2025 7:48 PM CDT) Magnesium 2.4 1.4 - 2.5 mg/dL Blood 01/01/2025 7:48 PM CDT 01/01/2025 7:51 PM CDT us Yan Perry MD LAB BLOOD ORDERABL ES Final Result Performing Organization Address City/[facility]/[place] [address] [address] Department [place] [address] * (ABNORMAL) Blood gas, arterial (01/01/2025 7:48 PM CDT) Pathologist [facility] pH, Art 7.33(L) 7.35 - 7.45 PCO2, [...] ORDERABLES Final Re sult Performing Organization Address City/[facility]/ZIP Co de Phone Number NOEMI ARECHIGA [address] Department [place] [address] * (ABNORMAL) Basic metabolic panel (01/01/2025 7:48 PM CDT) Pathologist [facility] [...] Calcium 8.1(L) 8.5 - 10.3 mg/dL [facility] Blood 01/01/2025 7:48 PM CDT 01/01/2025 7:51 PM CDT us Yan Perry MD LAB BLOOD ORDERABL ES Final Result Performing Organization Address [facility] Co de Phone Number NOEMI [address] [place] [address] * POCT glucose (01/01/2025 7:46 PM CDT) Glucose, POC 156 70 - 199 mg/dL POC Performer [id number] [facility] Blood 01/01/2025 7:46 PM CDT 01/01/2025 7:46 PM CDT us Didier Quispe MD LAB POCT ORDERABLES - DEVICE F inal Result Performing Organization Address City/[facility]/ZIP Co de Phone Number NOEMI [address] [place] [address] * Critical Care (01/01/2025 7:43 PM CDT) [...] plan with the ICU team and other medical/sales support consultant staff, making frequent assessments and decisions [...] 110 70 - 199 mg/dL POC Performer [id number] [facility] Blood 01/01/2025 6:15 PM CDT 01/01/2025 6:15 PM CDT Didier Quispe MD LAB POCT ORDERABLES - DEVICE F inal Result Performing Organization Address [facility] Phone Number NOEMI [address] Department [place] [address] * POCT glucose (01/01/2025 5:16 PM CDT) Glucose, POC 108 70 - 199 mg/dL POC Performer [id number] [facility] Blood 01/01/2025 5:16 PM CDT 01/01/2025 5:16 PM CDT Didier Quispe MD LAB POCT ORDERABLES - DEVICE F inal Result Performing Organization Address [facility]/ZIP Co de Phone Number NOEMI ARECHIGA [address] Department [place] [address] * POCT glucose (01/01/2025 4:05 PM CDT) Glucose, POC 95 70 - 199 mg/dL POC Performer [id number] NOEMI Blood 01/01/2025 4:05 PM CDT 01/01/2025 4:05 PM CDT us Didier Quispe MD LAB POCT ORDERABLES - DEVICE F inal Result Performing Organization Address [facility] Co de Phone Number NOEMI ARECHIGA [address] [place] [address] * XR Chest 1 View - Portable [...] in good position. The tip of the Mansfield-Lindsay catheter is in the proximal right main [...] in good position. The tip of the Mansfield-Lindsay catheter is in the proximal right main [...] ORDERABLES Final Res ult Performing Organization Address [facility] Co de Phone Number NOEMI ARECHIGA [address] [place] [address] * Calcium, ionized, whole blood (01/01/2025 3:41 PM CDT) Ca, ionized, bld 4.65 4.50 - 5.10 mg/dL Blood 01/01/2025 3:41 PM CDT 01/01/2025 3:48 PM CDT Didier Quispe MD LAB BLOOD ORDERABLES Final Res ult Performing Organization Address [facility] de Phone Number NOEMI [address] [place] [address] * Phosphorus (01/01/2025 3:41 PM CDT) Phosphorus, pl 3.4 2.3 - 4.5 mg/dL Blood 01/01/2025 3:41 PM CDT 01/01/2025 3:48 PM CDT Didier Quispe MD LAB BLOOD ORDERABLES Final Res ult Performing Organization Address [facility] Co de Phone Number NOEMI [address] Department [place] [phone] * Magnesium (01/01/2025 3:41 PM CDT) Magnesium 2.4 1.4 - 2.5 mg/dL Blood 01/01/2025 3:41 PM CDT 01/01/2025 3:48 PM CDT Didier Quispe MD LAB BLOOD ORDERABLES Final Res ult Performing Organization Address [facility] Co de Phone Number NOEMI ARECHIGA [address] [place] [address] * eGFR (01/01/2025 3:40 PM CDT) eGFR [...] ORDERABLES Final Re sult Performing Organization Address [facility]/ZIP Co de Phone Number NOEMI [address] [place] [address] * aPTT (01/01/2025 3:40 PM CDT) aPTT [...] ORDERABLES Final Re sult Performing Organization Address City/[facility]/ZIP Co de Phone Number NOEMI [address] [place] [address] * (ABNORMAL) Protime-INR (01/01/2025 3:40 [...] ORDERABLES Final Re sult Performing Organization Address City/[facility]/ZIP Co de Phone Number NOEMI [address] [address] * (ABNORMAL) CBC without differential [...] ORDERABLES Final Re sult Performing Organization Address [facility] [facility] de Phone Number NOEMI ARECHIGA [address] [place] [address] * (ABNORMAL) Blood gas, arterial (01/01/2025 3:40 [...] ORDERABLES Final Re sult Performing Organization Address [facility] [place]/[facility] Co de Phone Number NOEMI HAWK [address] Department [place] [address] * (ABNORMAL) Basic metabolic panel (01/01/2025 3:40 [...] LAB BLOOD ORDERABLES Final Re sult NOEMI [address] [place] [address] * POCT glucose (01/01/2025 3:06 PM CDT) Glucose, POC 122 70 - 199 mg/dL POC Performer [id number] CERNER Blood 01/01/2025 3:06 PM CDT 01/01/2025 3:06 PM CDT Didier Quispe MD LAB POCT ORDERABLES - DEVICE F inal Result [facility] [address] Department [place] [address] * Critical Care (01/01/2025 3:05 PM CDT) [...] plan with the ICU team and other medical/sales support consultant staff, making frequent assessments and decisions [...] Arterial - (01/01/2025 2:38 PM CDT) Pathologist [facility] [place] pH, Art POC 7.37 7.35 - 7.45 [...] POCT ORDERABLES - DEVICE F inal Result [facility] [address] Department [place] [address] * (ABNORMAL) POC Blood Gas [...] POCT ORDERABLES - DEVICE Final Result NOEMI [address] Department [place] [address] * (ABNORMAL) POC Blood Gas [...] - DEVICE Final Result Performing Organization Address [facility] [place]/[facility] Co de Phone Number NOEMI ARECHIGA [address] [place] [address] * POC Activated Clotting Time, High Range (01/01/2025 1:43 PM CDT) Pathologist [facility] [place] ACT 93 87 - 138 sec POC Performer [id number] CERNER CH Blood 01/01/2025 1:43 PM CDT 01/01/2025 1:43 PM CDT Nhi Pruett MD LAB BLOOD ORDERABLES Final Re sult Performing Organization Address City/[facility]/ZIP Co de Phone Number NOEMI ARECHIGA [address] [place] [address] * (ABNORMAL) POC Blood Gas and Chemistries, Arterial - (01/01/2025 1:00 PM CDT) Pathologist [facility] pH, Art POC 7.39 7.35 - 7.45 [...] - DEVICE Final Result Performing Organization Address City/[facility]/ZIP Co de Phone Number NOEMI ARECHIGA [address] [place] [address] * (ABNORMAL) POC Activated Clotting Time, High Range (01/01/2025 12:58 PM CDT) ACT 603(H) 87 - 138 sec POC Performer [id number] CERNER CH Blood 01/01/2025 12:5 8 PM CDT 01/01/2025 12:58 PM CDT Nhi Pruett MD LAB BLOOD ORDERABLES Final Re sult NOEMI ARECHIGA [address] [place] [address] * Platelet count (01/01/2025 12:50 PM CDT) Plt 241 150 - 400 K/cumm Blood 01/01/2025 12:5 0 PM CDT 01/01/2025 12:57 PM CDT Narrative CERNER CH - 01/01/2025 1:03 PM CDT Please call results to ext. [phone]. Thanks. us Didier Quispe MD LAB BLOOD ORDERABLES Final Res ult CERNER [address] Department [place] [address] * (ABNORMAL) POC Blood Gas and Chemistries, [...] - DEVICE Final Result Performing Organization Address [facility] [place]/[facility]/ZIP Co de Phone Number NOEMI ARECHIGA [address] Department [place] [address] * (ABNORMAL) POC Activated Clotting Time, High Range (01/01/2025 12:32 PM CDT) ACT 514(H) 87 - 138 sec POC Performer [id number] CERNER CH Blood 01/01/2025 12:3 2 PM CDT 01/01/2025 12:32 PM CDT Nhi Pruett MD LAB BLOOD ORDERABLES Final Re sult Performing Organization Address City/[facility] Co de Phone Number NOEMI ARECHIGA [address] Department [place] [address] * (ABNORMAL) POC Blood Gas and Chemistries, [...] - DEVICE Final Result Performing Organization Address [facility] [place]/[facility]/ZIP Co de Phone Number NOEMI ARECHIGA [address] Department of [place], [place] [id number] * (ABNORMAL) POC Activated Clotting Time, High Range (01/01/2025 12:04 PM CDT) ACT 570(H) 87 - 138 sec POC Performer [id number] CERNER CH Blood 01/01/2025 12:0 4 PM CDT 01/01/2025 12:04 PM CDT Nhi Pruett MD LAB BLOOD ORDERABLES Final Re sult Performing Organization Address City/[facility]/ZIP Co de Phone Number TARALAURA ARECHIGA [address] [place] [address] * (ABNORMAL) POC Blood Gas and Chemistries, [...] ORDERABLES - DEVICE Final Result NOEMI ARECHIGA [address] [place] [address] * (ABNORMAL) POC Activated Clotting Time, High Range (01/01/2025 11:46 AM CDT) ACT 698(H) 87 - 138 sec POC Performer [id number] [facility] CH Blood 01/01/2025 11:4 6 AM CDT 01/01/2025 11:46 AM CDT Nhi Pruett MD LAB BLOOD ORDERABLES Final Re sult TARALAURA ARECHIGA [address] [place] [address] * (ABNORMAL) POC Activated Clotting Time, High Range (01/01/2025 10:50 AM CDT) ACT 564(H) 87 - 138 sec POC Performer [id number] TARALAURA HAWK Blood 01/01/2025 10:5 0 AM CDT 01/01/2025 10:50 AM CDT us Nhi Pruett MD LAB BLOOD ORDERABLES Final Re sult NOEMI RAECHIGA [address] Department [place] [address] * BW AN SHEATH INTRODUCER PERFORMABLE, PULMONARY [...] MD ANESTHESIA ORDERABLES Final Resu lt * SD AN ELECTIVE ENDOTRACHEAL AIRWAY (01/01/2025 10:02 AM [...] ORDERABLES - DEVICE Final Result NOEMI HAWK [address] [place], [place] [address] * POC Activated Clotting Time, High Range (01/01/2025 9:41 AM CDT) ACT 90 87 - 138 sec POC Performer [id number] [facility] Blood 01/01/2025 9:41 AM CDT 01/01/2025 9:41 AM CDT us Nhi Pruett MD LAB BLOOD ORDERABLES Final Re sult NOEMI ARECHIGA [address] [place] [address] * DEISI (01/01/2025 9:40 AM CDT) Anatomical [...] inferior: normal 16- Apical septal: normal 17- [place]: normal Valves: Aortic Valve: Annulus: normal Leaflet [...] DO LAB BLOOD ORDERABLES Pricila mayen Result [facility] [address] Department [place] [address] * CBC without differential (01/01/2025 3:53 AM CDT) WBC 8.3 3.8 - 9.9 K/cumm Hgb 13.4 11.9 - 15.5 g/dL CERNER Hct 41.4 35.6 - 45.5 % [facility] Plt 250 150 - 400 K/cumm [facility] MPV 9.7 9.1 - 12.3 fL [facility] RBC 4.63 3.90 - 5.20 M/cumm [facility] MCV 89.4 81.3 - 96.4 fL [facility] MCH 28.9 27.1 - 33.3 pg CERNER MCHC 32.4 32.3 - 35.7 g/dL CERNER RDW CV 13.0 11.1 - 14.9 % [facility] RDW SD 42.4 35.7 - 48.1 fL [facility] NRBC abs 0.00 0.00 - 0.01 K/cumm CERNER Blood 01/01/2025 3:53 AM CDT 01/01/2025 4:13 AM CDT Gus Higgins DO LAB BLOOD ORDERABLES Pricila l Result NOEMI ARECHIGA [address] Department [place] [address] * Basic metabolic panel (01/01/2025 3:53 AM [...] BLOOD ORDERABLES Pricila l Result NOEMI ARECHIGA [address] [place] [address] * Check Sample (12/31/2024 10:02 AM CDT) ABO Rh A Positive CH HCLL OTHER 12/31/2024 10:0 2 AM CDT 12/31/2024 10:15 AM CDT Nhi Pruett MD LAB BLOOD ORDERABLES Final Re sult Performing Organization Address City/[facility] Co de Phone Number NOEMI ARECHIGA [address] [facility] [place] [address] CH * Type and screen (12/31/2024 9:16 AM CDT) Luis E, indirect Negative ABO Rh A Positive CERNER CH Blood 12/31/2024 9:16 AM CDT 12/31/2024 9:47 AM CDT Narrative CERNER CH - 12/31/2024 10:35 AM CDT Has the patient had Daratumumab or Isatuximab in the past 6 months?->Unknown Herrera Lin [employer]GG[employer] LAB BLOOD BANK TEST ORDERA BLES Final Result Performing Organization Address [facility] [place]/[facility] Co de Phone Number NOEMI ARECHIGA [address] [place] [address] * Prepare RBC: 4 Units (12/31/2024 8:44 AM CDT) Pathologist [facility] [place] Product code [id number] CERNER CH Unit Number [id number] 5-P CERNER CH Product Blood Type APOS CERNER CH Dispense Status RETURNED CERNER CH Product code [id number] CERNER CH Unit Number [id number] 0-T CERNER CH Product Blood Type APOS CERNER CH Dispense Status RETURNED CERNER CH Product code [id number] Unit Number [id number] 8-H CERNER CH Product Blood Type APOS CERNER CH Dispense Status RETURNED CERNER CH Product code [id number] CERNER CH Unit Number [id number] 2-E CERNER CH Product Blood Type APOS CERNER CH Dispense Status RETURNED CERNER CH Blood 12/31/2024 8:44 AM CDT Narrative CERNER CH - 01/04/2025 12:21 AM CDT Specify Procedure:->CABG Are special requirements needed? (All products are leukoreduced and CMV- safe)- >No Date required:-[id number] LRRBC # of [id number] Reasons:-Hold for procedure (specify procedure)} Herrera Lin [employer] BLOOD BANK PRODUCT ORDERAB LES Final Result NOEMI ARECHIGA [address] [place] [address] * eGFR (12/31/2024 5:56 AM CDT) Pathologist [facility] [place] eGFR [...] BLOOD ORDERABLES Pricila l Result NOEMI ARECHIGA [address] [place] [address] * CBC without differential (12/31/2024 5:56 AM CDT) Pathologist [facility] [place] WBC 7.9 3.8 - 9.9 K/cumm Hgb 13.9 11.9 - 15.5 g/dL [facility] Hct 41.8 35.6 - 45.5 % [facility] Plt 258 150 - 400 K/cumm [facility] MPV 10.0 9.1 - 12.3 fL [facility] RBC 4.70 3.90 - 5.20 M/cumm [facility] MCV 88.9 81.3 - 96.4 fL [facility] MCH 29.6 27.1 - 33.3 pg [facility] MCHC 33.3 32.3 - 35.7 g/dL [facility] RDW CV 13.1 11.1 - 14.9 % [facility] RDW SD 42.7 35.7 - 48.1 fL [facility] NRBC abs 0.00 0.00 - 0.01 K/cumm [facility] Blood 12/31/2024 5:56 AM CDT 12/31/2024 6:29 AM CDT Gus Higgins DO LAB BLOOD ORDERABLES Pricila l Result [facility] [address] Department [place] [address] * Basic metabolic panel (12/31/2024 5:56 AM CDT) Sodium 138 135 - 145 mmol/L Potassium, pl 4.2 3.3 - 4.9 mmol/L [facility] Chloride 105 97 - 110 mmol/L [facility] CO2 23 22 - 32 mmol/L [facility] Anion gap 10 2 - 15 mmol/L [facility] BUN 11 6 - 25 mg/dL [facility] Creatinine 0.78 0.60 - 1.10 mg/dL [facility] Glucose 98 70 - 199 mg/dL [facility] Comment: Interpretive Data Fasting glucose >/= 126 [...] ORDERABLES Pricila l Result Performing Organization Address City/[facility]/[place] [address] [address] Department [place] [address] * (ABNORMAL) Urinalysis reflex to microscopic and [...] tendency for uric acid stone formation. Source: [facility] Current Interpretive Data was last revised [...] CDT 12/30/2024 6:49 PM CDT Herrera Lin [employer]GG[employer] MAN LAB MICROBIOLOGY - GENERAL ORDERABLES Final Result NOEMI ARECHIGA [address] [place] [address] * hCG, urine, qualitative (12/30/2024 6:44 PM CDT) [facility] HCG, ur Negative Negative Urine 12/30/2024 6:44 PM CDT 12/30/2024 6:50 PM CDT Herrera Lin LAB URINE ORDERABLES Final Result Performing Organization Address [facility] [place]/[facility] Co de Phone Number NOEMI ARECHIGA [address] [facility] [place] [address] * (ABNORMAL) Urinalysis, microscopic only (12/30/2024 6:44 PM CDT) [facility] WBC, ur 0-5 0 - 5 /HPF RBC, ur 0-2 0 - 2 /HPF [facility] Epithelial cells, squamous, ur 1-5 0 - 5 /HPF [facility] Bacteria, ur Trace(A) [facility] Mucous, ur Present(A) [facility] Culture Reflex Comment Reflex conditions for urine culture (WBC >10) not met. [facility] Urine, clean voided 12/30/2024 6:44 PM CDT 12/30/2024 6:49 PM CDT Herrera Lin LAB URINE ORDERABLES Final Result Performing Organization Address [facility] [place]/[facility] de Phone Number NOEMI HAWK [address] [facility] [place] [place] [address] * eGFR (12/30/2024 3:25 AM CDT) [facility] eGFR >90 >=60 mL/min/1. 73 m2 Comment: [...] ORDERABLES Pricila l Result Performing Organization Address City/[facility]/ZIP Co de Phone Number [facility] [address] Department [place] [address] * CBC without differential (12/30/2024 3:25 AM CDT) WBC 7.9 3.8 - 9.9 K/cumm Hgb 13.1 11.9 - 15.5 g/dL [facility] Hct 39.9 35.6 - 45.5 % [facility] Plt 240 150 - 400 K/cumm [facility] MPV 10.1 9.1 - 12.3 fL [facility] RBC 4.42 3.90 - 5.20 M/cumm [facility] MCV 90.3 81.3 - 96.4 fL [facility] MCH 29.6 27.1 - 33.3 pg [facility] MCHC 32.8 32.3 - 35.7 g/dL [facility] RDW CV 12.9 11.1 - 14.9 % [facility] RDW SD 42.6 35.7 - 48.1 fL [facility] NRBC abs 0.00 0.00 - 0.01 K/cumm [facility] Blood 12/30/2024 3:25 AM CDT 12/30/2024 4:13 AM CDT Gus Higgins DO LAB BLOOD ORDERABLES Pricila l Result NOEMI ARECHIGA [address] [place] [address] * Hemoglobin A1c (12/30/2024 3:25 AM CDT) Hgb A1C 5.5 4.0 - 5.6 % Estimated Average Glucose 111 mg/dL [facility] Comment: The ADA recommends reporting an estimated Average Glucose (eAG) with all Hemoglobin A1c results using the equation derived from a study of 507 normal and diabetic adults. Minority populations were underrepresented and children were not included. (Diabetes Care 31:6050-0540, 2008). The eAG is not equivalent to a fasting glucose. Blood 12/30/2024 3:25 AM CDT 12/30/2024 4:13 AM CDT Herrera Lin NP LAB BLOOD ORDERABLES Final Result Performing Organization Address [facility] [place]/[facility] Phone Number NOEMI ARECHIGA [address] [place] [address] * Basic metabolic panel (12/30/2024 3:25 AM CDT) Pathologist [facility] Sodium 140 135 - 145 mmol/L Potassium, pl 3.7 3.3 - 4.9 mmol/L [facility] Chloride 106 97 - 110 mmol/L [facility] CO2 22 22 - 32 mmol/L [facility] Anion gap 12 2 - 15 mmol/L [facility] BUN 11 6 - 25 mg/dL [facility] Creatinine 0.76 0.60 - 1.10 mg/dL [facility] Glucose 98 70 - 199 mg/dL [facility] Comment: Interpretive Data Fasting glucose >/= 126 [...] LAB BLOOD ORDERABLES Pricila mayen Result NOEMI [address] Department of Laboratories [place] [id number] * TRANSTHORACIC ECHO (TTE) COMPLETE W DOPPLER/CF WO CONTRAST (12/29/2024 12:45 PM CDT) Anatomical Region Laterality Modality Ultrasound 12/29/2024 11:1 5 AM CDT Narrative 12/29/2024 2:45 [place] [address] Echocardiogram Report Patient Name: PREM KAUR L : 1980 Study Date: 12/29/2024 11:15:21 AM Gender: F [facility]: Location: [id number] Ref Provider: HERRERA LIN Height(Cm): 175 BSA: [...] Procedure Note Brittani Lomeli MD - 12/29/2024 [place] [address] Echocardiogram Report Patient Name: PREM KAUR L : 1980 Study Date: 12/29/2024 11:15:21 AM Gender: F [facility]: Location: [id number] Ref Provider: HERRERA LIN Height(Cm): 175 BSA: [...] AM CDT 12/29/2024 5:17 AM CDT [facility]LES Pricila l Result Performing Organization Address [facility] [place]/[facility] Co de Phone Number NOEMI ARECHIGA [address] [place] [address] * CBC without differential (12/29/2024 4:11 AM CDT) WBC 7.6 3.8 - 9.9 K/cumm Hgb 12.9 11.9 - 15.5 g/dL [facility] Hct 39.1 35.6 - 45.5 % [facility] Plt 227 150 - 400 K/cumm [facility] MPV 10.0 9.1 - 12.3 fL CERNER [...] ORDERABLES Pricila l Result Performing Organization Address [facility] [place]/[facility] Co de Phone Number NOEMI ARECHIGA [address] [place] [address] * (ABNORMAL) Basic metabolic panel (12/29/2024 4:11 AM CDT) Sodium 141 135 - 145 mmol/L Potassium, pl 4.0 3.3 - 4.9 mmol/L [facility] Chloride 108 97 - 110 mmol/L [facility] CO2 21(L) 22 - 32 mmol/L [facility] Anion gap 12 2 - 15 mmol/L [facility] BUN 9 6 - 25 mg/dL [facility] Creatinine 0.77 0.60 - 1.10 mg/dL [facility] Glucose 94 70 - 199 mg/dL [facility] Comment: Interpretive Data Fasting glucose >/= 126 [...] Calcium 8.8 8.5 - 10.3 mg/dL [facility] Blood 12/29/2024 4:11 AM CDT 12/29/2024 5:17 AM CDT Gus Higgins DO LAB BLOOD ORDERABLES Pricila l Result [facility] [address] Department [place] [address] * Troponin T high-sensitivity 6-hour (12/28/2024 12:42 AM CDT) Trop T hs 13 <=14 ng/L Comment: Interpretive Data For further hscTnT resources including the diagnostic algorithm and an aid in interpretation, copy and paste this link: [email or web address]/show/[email or web address] Current Interpretive Data last revised 2020. Trop T hs delta 1 ng/L CERNER Trop T hs interp Insignificant [facility] Blood 12/28/2024 12:4 2 AM CDT 12/28/2024 12:49 AM CDT Mabel Mindy Rodriguez [employer] MAN LAB BLOOD ORDERABLES Final Result Performing Organization Address [facility] [place]/[facility]/ZIP Co de Phone Number NOEMI ARECHIGA [address] [facility] [place] [place] [address] * Phosphorus (12/28/2024 12:42 AM CDT) Phosphorus, pl 3.1 2.3 - 4.5 mg/dL Blood 12/28/2024 12:4 2 AM CDT 12/28/2024 4:25 PM CDT Gus Higgins LAB BLOOD ORDERABLES Pricila l Result Performing Organization Address [facility] [place]/[facility] de Phone Number NOEMI ARECHIGA [address] [facility] [place] [address] * Magnesium (12/28/2024 12:42 AM CDT) Magnesium 2.2 1.4 - 2.5 mg/dL Blood 12/28/2024 12:4 2 AM CDT 12/28/2024 4:25 PM CDT Gus Higgins LAB BLOOD ORDERABLES Pricila l Result Performing Organization Address [facility] [place]/[facility] Co de Phone Number NOEMI ARECHIGA [address] [place] [address] * Troponin T high-sensitivity 4-hour (12/27/2024 10:25 PM CDT) Trop T hs 12 <=14 ng/L Comment: Interpretive Data For further hscTnT resources including the diagnostic algorithm and an aid in interpretation, copy and paste this link: [email or web address].[email or web address]/show/[email or web address] Current Interpretive Data last revised 2020. Trop T hs delta 0 ng/L [facility] Trop T hs interp Insignificant [facility] Blood 12/27/2024 10:2 5 PM CDT 12/27/2024 10:29 PM CDT us Mabel Rodriguez [employer] LAB BLOOD ORDERABLES Final Result Performing Organization Address [facility] [place]/[facility] Co de Phone Number NOEMI ARECHIGA [address] [facility] [place] [address] * Troponin T high-sensitivity 2-hour (12/27/2024 8:37 PM CDT) Trop T hs 13 <=14 ng/L Comment: Interpretive Data For further hscTnT resources including the diagnostic algorithm and an aid in interpretation, copy and paste this link: [email or web address] Current Interpretive Data last revised 2020. Trop T hs delta 1 ng/L [facility] Trop T hs interp Insignificant [facility] Blood 12/27/2024 8:37 PM CDT 12/27/2024 8:44 PM CDT Mabel Rodriguez LAB BLOOD ORDERABLES Final Result Performing Organization Address [facility]/[facility] Co de Phone Number NOEMI ARECHIGA [address] [facility] [place] [address] * Troponin T high-sensitivity series (baseline, 2hr, 4hr, 6hr) (12/27/2024 6:48 PM CDT) Trop T hs 12 <=14 ng/L Comment: Interpretive Data For further hscTnT resources including the diagnostic algorithm and an aid in interpretation, copy and paste this link: [email or web address] Current Interpretive Data last revised 2020. Blood 12/27/2024 6:48 PM CDT 12/27/2024 6:53 PM CDT us Mabel Rodriguez [employer] LAB BLOOD ORDERABLES Final Result Performing Organization Address City/[facility] Co de Phone Number NOEMI ARECHIGA [address] [place] [address] * eGFR (12/27/2024 6:48 PM CDT) eGFR [...] CDT 12/27/2024 6:54 PM CDT Mabel Rodriguez [employer] MAN LAB BLOOD ORDERABLES Final Result Performing Organization Address City/[facility] Co de Phone Number NOEMI ARECHIGA [address] Department [place] [address] * Differential, auto (12/27/2024 6:48 PM CDT) Neutrophil abs 6.4 1.5 - 6.5 K/cumm Imm gran abs 0.0 0.0 - 0.1 K/cumm [facility] Lymphocyte abs 1.7 0.8 - 3.3 K/cumm [facility] Monocyte abs 0.7 0.2 - 0.8 K/cumm [facility] Eosinophil abs 0.1 0.0 - 0.5 K/cumm [facility] Basophil abs 0.0 0.0 - 0.1 K/cumm NOEMI Neutrophil pct 70.9 % [facility] Comment: Interpretive Data Percent cell count reference [...] NP LAB BLOOD ORDERABLES Final Result NOEMI [address] Department [place] [address] * CBC with auto differential (12/27/2024 6:48 PM CDT) WBC 9.0 3.8 - 9.9 K/cumm Hgb 12.4 11.9 - 15.5 g/dL NOEMI Hct 37.6 35.6 - 45.5 % [facility] Plt 211 150 - 400 K/cumm CERNER MPV 9.8 9.1 - 12.3 fL [facility] RBC 4.20 3.90 - 5.20 M/cumm [facility] MCV 89.5 81.3 - 96.4 fL [facility] MCH 29.5 27.1 - 33.3 pg [facility] MCHC 33.0 32.3 - 35.7 g/dL [facility] RDW CV 13.1 11.1 - 14.9 % [facility] RDW SD 42.6 35.7 - 48.1 fL [facility] NRBC abs 0.00 0.00 - 0.01 K/cumm [facility] Blood 12/27/2024 6:48 PM CDT 12/27/2024 6:53 PM CDT Mabel Rodriguez NP LAB BLOOD ORDERABLES Final Result [facility] [address] Department [place] [address] * (ABNORMAL) Comprehensive metabolic panel (12/27/2024 6:48 PM CDT) Sodium 138 135 - 145 mmol/L Potassium, pl 4.0 3.3 - 4.9 mmol/L [facility] Chloride 104 97 - 110 mmol/L [facility] CO2 21(L) 22 - 32 mmol/L [facility] [facility] Anion gap 13 2 - 15 mmol/L [facility] BUN 9 6 - 25 mg/dL [facility] Creatinine 0.79 0.60 - 1.10 mg/dL [facility] Glucose 102 70 - 199 mg/dL [facility] Comment: Interpretive Data Fasting glucose >/= 126 [...] NP LAB BLOOD ORDERABLES Final Result [facility] [address] Department [place] [address] * Cardiology Document Scan (12/27/2024 1:09 PM [...] by Sidney Martin M.D. MD: Report ID: [id number] Reading Location: [facility] Narrative 12/20/2022 11:41 AM CDT EXAM [...] Relevant to Health Maintenance Insurance [employer] [address] [id number] [place] [address] [employer] [facility] [employer] [place] Advance Directives For more information, please contact: [phone] * Full Code (Latest Code Status on File) Date Activated Date Inactivated Comments 12/27/2024 6:08 PM 01/06/2025 10:43 PM Care Teams Child Welfare Caseworker Relationship Specialty Start Date End Date Aleida Hu PA PCP - General Physician Service Technician Copier 02/21/21 Didier Quispe MD [id number] [place] [address] Surgeon Cardiothoracic Surgery 01/06/25 Angelique Durant NP [address] [facility] [address] [place] [address] Nurse Practitioner Cardiovascular Disease 01/06/25
[2025-02-17 20:03] LABS: Troponin I < 0.012 ng/mL (0.000-0.034)
--- NOTE | 2025-02-17 20:34 | PC.NURSE ---
spoke with ming at [facility] transfer center- they were calling for an update to see if we had a test resulted on the patient. no labs ran for test, called lab and had them add on the serum hcg to labs sent down earlier.
[2025-02-17 20:48] LABS: SPREG INTERNAL CONTROL Positive; Serum Qual hCG Negative
--- NOTE | 2025-02-17 20:52 | PC.NURSE ---
spoke with ming at [facility] transfer center at this time, updated about serum hcg level. triage information provided including lab results, vital signs, and any questions asked have been answered. they will call back with room assignment shortly
--- NOTE | 2025-02-17 21:05 | PC.NURSE ---
spoke with Gerald in pharmacy, they will verify the medication and send it down
--- NOTE | 2025-02-17 22:15 | ECG_ITS ---
Test Date: 2025-02-17 19:31:45 Measurements Intervals [place] Rate: 80 P: 45 NH: 152 QRS: 12 QRSD: 90 T: 102 QT: 385 QTc: 445 Interpretive Statements SINUS RHYTHM POSSIBLE LEFT ATRIAL ENLARGEMENT [-0.1mV P-WAVE IN V1/V2] INFERIOR MYOCARDIAL INFARCTION , PROBABLY OLD [40+ ms Q WAVE AND/OR ST/T ABNORMALITY IN II/aVF] NONSPECIFIC T WAVE ABNORMALITY Compared to ECG 02/17/2025 16:14:29 NO SIGNIFICANT CHANGES Electronically Signed On 02-18-2025 11:51:48 CDT by Roger Turcios M.D.
[2025-02-17] MEDS: ACETAMINOPHEN 325 MG TABLET 650 MG PO (22:29)
[2025-02-17 23:04] LABS: Troponin I < 0.012 ng/mL (0.000-0.034)
[2025-02-18] VITALS: BP 163/89; PULSE 77; RESP 16; O2SAT 97
[2025-02-18 00:31] VITALS: BP 152/99; PULSE 94; RESP 20; O2SAT 97
--- NOTE | 2025-02-18 09:03 | ECG_ITS ---
Test Date: 2025-02-17 22:20:18 Measurements Intervals [place] Rate: 82 P: 47 GA: 152 QRS: 26 QRSD: 91 T: 93 QT: 377 QTc: 441 Interpretive Statements SINUS RHYTHM INFERIOR MYOCARDIAL INFARCTION , PROBABLY OLD [40+ ms Q WAVE AND/OR ST/T ABNORMALITY IN II/aVF] NONSPECIFIC T WAVE ABNORMALITY Compared to ECG 02/17/2025 19:31:45 NO SIGNIFICANT CHANGES Electronically Signed On 02-18-2025 11:54:48 CDT by Roger Turcios M.D.
== END 2025-02-18 00:46 | disposition short-term general hospital (02) ==
PROVIDERS: Emergency Medicine; Physician Assistant; Emergency Provider Emergency Medicine; PCP Physician Assistant
DX: R07.9 Chest pain, unspecified (principal); R94.31 Abnormal electrocardiogram [ECG] [EKG]; I10 Essential (primary) hypertension; K21.9 Gastro-esophageal reflux disease without esophagitis; I25.10 Atherosclerotic heart disease of native coronary artery without angina pectoris; I25.2 Old myocardial infarction; Z87.891 Personal history of nicotine dependence
CPT/HCPCS: 36415; 71046; 80053; 83690; 83880; 84484; 84703; 85025; 85610; 85730; 93005; 99285; A9270

== ENCOUNTER 2025-07-06 13:45 | Outpatient (RCR) | payer SELFPAY | END 2025-07-28 09:48 | disposition home or self-care (01) | LOC: ANHCPREHAB 13:45 | PROVIDERS: PCP Physician Assistant; Visit Provider Specialist | DX: I50.89 Other heart failure (principal) | CPT/HCPCS: 99199 ==